=== PATIENT | male | born 1945 | race Caucasian/White ===

== ENCOUNTER 2020-01-11 20:49 | Emergency (ER) | payer MEDICARE, SELFPAY ==
[2020-01-11] VITALS (7 sets, daily range): BP systolic 131–143; BP diastolic 55–84; PULSE 84–103; RESP 16–18; TEMP 38; O2SAT 90–98; BMI 29.6
--- NOTE | 2020-01-11 21:42 | W.ED.SOB ---
HPI - SOB/Dyspnea General: Chief Complaint: Shortness of Breath/Dyspnea Stated Complaint: sob, cough Time Seen by Provider: 01/11/20 21:23 Source: patient Mode of arrival: ambulatory Limitations: no limitations History of Present Illness: HPI Narrative: Patient is a 74-year-old gentleman with a history of hypertension, diabetes, COPD, coronary artery disease who has been smoking for 65 years who presents to the emergency department with cough and shortness of breath that started when he woke up this afternoon from a nap. He also had a low-grade temperature. He has some shortness of breath. Because he was not getting any better he came to the hospital to be evaluated. MD elicited complaint: shortness of breath and cough Pertinent past history: COPD and diabetes Onset (ago): hour(s) (8) Timing: constant and progressively worsening Severity: moderate Exacerbating factors: nothing Relieving factors: nothing Known history of: COPD Associated symptoms: Reports chest pain, cough and fever(s); Deny abdominal pain, nausea, palpitations, polydipsia, polyuria or vomiting Treatment prior to arrival: none Review of Systems General: Reports: 10 or more systems reviewed and unremarkable except in HPI and below Const: Reports: fever Card: Reports: chest pain; Denies: palpitations, irregular heart rhythm, edema or swelling of feet/ankles Resp: Reports: shortness of breath and non-productive cough; Denies: productive cough GI: Denies: abdominal pain, nausea or vomiting : Denies: flank pain, painful urination, urinary frequency, urinary urgency or urinary hesitancy Musc: Denies: neck pain, back pain or extremity swelling Skin/Breast: Denies: rash, itching or redness Neuro: Denies: headache, numbness in extremities or weakness in extremities Endo: Denies: excessive urination, excessive thirst or tired all the time PFS ED PFSH: Medical History (Updated 01/11/20 @ 23:54 by Maximino Maradiaga MD, [facility]) ASHD (arteriosclerotic heart disease) COPD (chronic obstructive pulmonary disease) CVA (cerebral vascular accident) Diabetes HTN (hypertension) Tobacco abuse Social History Smoking and tobacco status: current every day smoker Physical Exam Const: COMMON NORMALS: no apparent distress, average body habitus, oriented x3, no limitations, healthy appearing, alert and well nourished HENMT: COMMON NORMALS: normocephalic, head/scalp atraumatic and moist oral mucous membranes HEAD & SCALP: normocephalic and atraumatic Eye: COMMON NORMALS: PERRL, EOMs intact bilaterally, conjunctivae normal and no scleral icterus CONJUNCTIVA: Yes conjunctivae normal PUPIL: Yes PERRL Neck/C-Spine: COMMON NORMALS: full ROM, supple, no meningeal signs, no JVD and no carotid bruits Chest: COMMONS NORMALS: inspection of chest normal and palpation of chest normal Resp: COMMON NORMALS: normal respiratory effort, no retractions, no use of accessory muscles and percussion normal AUSCULTATION: wheezes expiratory wheezes and throughout PERCUSSION: percussion normal Cardio: COMMON NORMALS: no JVD, regular rate, regular rhythm, S1 normal heart sound, S2 normal heart sound, no gallops, no clicks, no murmurs, no rub and peripheral pulses 2+ throughout RATE: regular rate RHYTHM: regular rhythm HEART SOUNDS: S1 normal and S2 normal PERIPHERAL PULSES: pulses 2+ throughout GI: COMMON NORMALS: normal to inspection, nondistended, normoactive bowel sounds, soft to palpation, non-tender, no hepatosplenomegaly, no masses and no bruits PALPATION: Yes soft and Yes no hepatosplenomegaly : COMMON NORMALS: Yes no CVA tenderness BLADDER/KIDNEY EXAM: Yes no CVA tenderness Back/Pelvis: COMMON NORMALS: no CVA tenderness Extremity: COMMON NORMALS: normal to inspection, full ROM, normal capillary refill, no calf tenderness and no pedal edema Neuro: COMMON NORMALS: oriented x3 SENSORIUM/ORIENTATION: Yes alert MENINGEAL SIGNS: Yes no meningeal signs Skin: COMMON NORMALS: no rashes or lesions noted, no wounds, skin turgor normal, no jaundice, no petechiae and no mottling GENERAL SKIN EXAM: no rashes or lesions noted and turgor normal Course Reevaluation(s): Reevaluation #1: Discussed his lab and imaging findings with him. He is positive for influenza B. Chest x-ray negative for acute findings. He obtained marked relief following his beta agonist treatment. We will discharge him home with a prescription for Tamiflu and he will be contacted with the results of his COVID-19 test. He voiced understanding and is in agreement with the plan. Time: 23:51 Vital Signs: Vital signs: Vital Signs Temperature 100.4 F H 01/11/20 20:57 Pulse Rate 92 01/11/20 23:37 Respiratory Rate 16 01/11/20 23:19 Blood Pressure 131/66 01/11/20 23:37 Pulse Oximetry 94 01/11/20 23:37 MDM - SOB/Dyspnea MDM Narrative: Medical decision making narrative: 74-year-old gentleman who presented with shortness of breath, cough, fever that started this afternoon. Evaluation in the ED was positive for influenza B infection. He was also tested for COVID-19 test. He is discharged home with a prescription for Tamiflu and albuterol. Differential Diagnosis: Shortness of Breath Differential Diagnosis: Likely acute exacerbation of chronic obstructive airways disease and community acquired pneumonia Lab Data: Labs: Lab Results 01/11/20 01/11/20 01/11/20 Range/Units 21:49 22:45 22:45 WBC 10.3 H (4.0-10.0) 10^3/ uL RBC 5.26 (4.1-5.3) 10^6/u L Hgb 16.5 (11.7-16.6) g/dL Hct 50.0 (42.0-52.0) % MCV 95.1 H (80-94) fL MCH 31.4 (28.0-34.0) pg MCHC 33.0 (30.0-36.0) g/dL RDW 13.2 (12.1-15.1) % Plt Count 187 (130-400) 10^3/c mm MPV 9.5 (7.4-10.4) fL Neut % (Auto) 78.6 % Lymph % (Auto) 13.1 % [place] % (Auto) 6.8 % Eos % (Auto) 0.6 % Baso % (Auto) 0.6 % Neut # (Auto) 8.1 H (1.8-7.7) 10^3/u L Lymph # (Auto) 1.4 (0.8-4.8) 10^3/u L [place] # (Auto) 0.7 (0.2-0.9) 10^3/u L Eos # (Auto) 0.1 (0.0-0.8) 10^3/u L Baso # (Auto) 0.1 (0.0-0.1) 10^3/u L Nucleated RBC % (a uto) 0 % Nucleated RBCs # 0.0 /100WBC Sodium 142 (136-145) mmol/L Potassium 4.2 (3.5-5.1) mmol/L Chloride 103 (98-107) mmol/L Carbon Dioxide 26 (22-29) mmol/L Anion Gap 17.2 (5-19) BUN 13 (8-23) mg/dL Creatinine 1.0 (0.7-1.2) mg/dL Glucose 109 (65-115) mg/dL Calculated Osmolal ity 291 (285-295) mOsm/k g Lactic Acid (0.5-2.2) mmol/L Calcium 9.3 (8.5-10.5) mg/dL Total Bilirubin 0.6 (0.15-1.2) mg/dL AST 28 (0-40) U/L ALT 23 (0-41) U/L Alkaline Phosphata se 79 (40-130) IU/L Troponin T Baselin e (0-15) ng/mL Total Protein 6.7 (6.6-8.7) g/dL Albumin 4.2 (3.5-5.2) g/dL Globulin 2.5 (1.3-4.6) g/dL Influenza Type A A g Negative (Negative) Influenza Type B A g Positive H (Negative) 01/11/20 01/11/20 Range/Units 22:45 22:45 WBC (4.0-10.0) 10^3/ uL RBC (4.1-5.3) 10^6/u L Hgb (11.7-16.6) g/dL Hct (42.0-52.0) % MCV (80-94) fL MCH (28.0-34.0) pg MCHC (30.0-36.0) g/dL RDW (12.1-15.1) % Plt Count (130-400) 10^3/c mm MPV (7.4-10.4) fL Neut % (Auto) % Lymph % (Auto) % [place] % (Auto) % Eos % (Auto) % Baso % (Auto) % Neut # (Auto) (1.8-7.7) 10^3/u L Lymph # (Auto) (0.8-4.8) 10^3/u L [place] # (Auto) (0.2-0.9) 10^3/u L Eos # (Auto) (0.0-0.8) 10^3/u L Baso # (Auto) (0.0-0.1) 10^3/u L Nucleated RBC % (a uto) % Nucleated RBCs # /100WBC Sodium (136-145) mmol/L Potassium (3.5-5.1) mmol/L Chloride (98-107) mmol/L Carbon Dioxide (22-29) mmol/L Anion Gap (5-19) BUN (8-23) mg/dL Creatinine (0.7-1.2) mg/dL Glucose (65-115) mg/dL Calculated Osmolal ity (285-295) mOsm/k g Lactic Acid 1.2 (0.5-2.2) mmol/L Calcium (8.5-10.5) mg/dL Total Bilirubin (0.15-1.2) mg/dL AST (0-40) U/L ALT (0-41) U/L Alkaline Phosphata se (40-130) IU/L Troponin T Baselin e 15 (0-15) ng/mL Total Protein (6.6-8.7) g/dL Albumin (3.5-5.2) g/dL Globulin (1.3-4.6) g/dL Influenza Type A A g (Negative) Influenza Type B A g (Negative) Imaging Data^: CXR: Attestation: I personally reviewed and interpreted this imaging study as follows: My impression: Negative for acute findings. EKG Data^: EKG 1: Attestation: I personally reviewed and interpreted this EKG as follows: EKG Interpretation Date: 01/11/20 EKG interpretation time: 22:19 Prior EKG tracings: not available for review Interpretation: Normal sinus rhythm. Heart rate 85 bpm. Intraventricular conduction delay. Normal axis. No ST changes. Discharge Plan Discharge Patient Disposition: Home, Self-Care Clinical Impression: Influenza B Acute bronchitis Qualifiers: Bronchitis organism: other organism Qualified Code(s): J20.8 - Acute bronchitis due to other specified organisms Condition: Stable Prescriptions: New Tamiflu 75 mg capsule 75 mg PO DAILY Qty: 5 RF: 0 Continued gabapentin 300 mg capsule 300 mg PO DAILY RF: 0 ezetimibe 10 mg tablet 10 mg PO DAILY RF: 0 hydrocodone-acetaminophen 10-325 mg tablet 1 tab PO Q6H PRNRF: 0 clopidogrel 75 mg tablet 75 mg PO DAILY RF: 0 alprazolam 0.25 mg tablet 0.25 mg PO TID PRN (Reason: Anxiety) RF: 0 citalopram 10 mg tablet 10 mg PO DAILY RF: 0 albuterol sulfate [ProAir HFA] 90 mcg/actuation HFA aerosol inhaler 2 puff INHALATION Q6H PRN (Reason: Bronchodilation) RF: 0 aspirin 325 mg tablet 325 mg PO DAILY RF: 0 nitroglycerin [Nitrostat] 0.4 mg tablet, sublingual 0.4 mg SUBLINGUAL Q5M PRN (Reason: Chest Pain) RF: 0 tamsulosin 0.4 mg capsule 0.4 mg PO DAILY RF: 0 acetaminophen-codeine 300-60 mg tablet 1 tab PO BID RF: 0 Discharge Orders: Discharge Order (Routine); Ordered 01/11/20 Ordered By: Maximino Maradiaga Referrals: [facility] [Other] Patient Instructions: Influenza (ED), Acute Bronchitis (ED) Activity Restrictions/Additional Instructions: Return for any new or worsening symptoms. Use your albuterol inhaler every 4 hours while awake for the next 2 days, then as needed thereafter. Take the Tamiflu as prescribed. Follow-up with your primary care provider within 5 days. Coding Level of Care Code ED Guyline Operator for Ledy Fwd Exam Comprehensive
--- NOTE | 2020-01-11 21:43 | ECG_ITS ---
Measurements Intervals [place] Rate: 85 P: 87 [place]: 170 QRS: 59 QRSD: 116 T: 63 QT: 370 QTc: 442 SINUS RHYTHM MODERATE INTRAVENTRICULAR CONDUCTION DELAY [110+ ms QRS DURATION] Compared to ECG 02/16/2019 20:21:27 Sinus bradycardia no longer present Electronically Signed On 01-13-2020 15:45:25 CDT by Bria Figueroa M.D. [id number]
--- NOTE | 2020-01-11 21:57 | PC.NURSE ---
PATIENT STATES HE HAS BEEN SHORT OF BREATH SINCE LAST NIGHT. PATIENT STATES HE JUST WAS NOT FEELING GOOD TODAY SO HE DECIDED TO COME IN TO THE ED
[2020-01-11 22:47] LABS: Influenza A by IFA Negative (Negative)
[2020-01-11 22:57] LABS: Influenza B by IFA Positive (Negative)
[2020-01-11 23:02] LABS: Basophils # 0.1 10^3/uL (0.0-0.1); Basophils % 0.6 %; Eosinophils # 0.1 10^3/uL (0.0-0.8); Eosinophils % 0.6 %; Hemoglobin 16.5 g/dL (11.7-16.6); Lymphocytes # 1.4 10^3/uL (0.8-4.8); Lymphocytes % 13.1 %; Mean Corpuscular Hemoglobin 31.4 pg (28.0-34.0); Mean Corpuscular Volume 95.1 fL (80-94); Mean Platelet Volume 9.5 fL (7.4-10.4); Monocytes # 0.7 10^3/uL (0.2-0.9); Monocytes % 6.8 %; Neutrophils # 8.1 10^3/uL (1.8-7.7); Neutrophils % 78.6 %; Nucleated Red Blood Cells % 0 %; Platelet Count 187 10^3/cmm (130-400); Red Blood Count 5.26 10^6/uL (4.1-5.3); Red Cell Distribution Width 13.2 % (12.1-15.1); White Blood Count 10.3 10^3/uL (4.0-10.0)
--- NOTE | 2020-01-11 23:11 | XR_ITS ---
WS: [id number] PORTABLE CHEST HISTORY: shortness of breath COMPARISON: 08/22/2019 Hyperinflated lungs with diffuse interstitial thickening. No pneumonia or consolidation. No pleural e ffusion or pneumothorax. Cardiac size: Mildly enlarged cardiac silhouette. Mediastinum/Aorta: Mild ectasia and dilatation of aorta with calcification. Similar to prior studies. Degenerative changes are advanced at the glenohumeral joints and the AC joints. XR/XR chest 1V portable [id number] IMPRESSION: 1. Chronic emphysema with no pneumonia. 2. Moderate atherosclerosis and ectasia thoracic aorta. No interval change.
[2020-01-11 23:16] LABS: Lactic Sepsis W/Reflex 1.2 mmol/L (0.5-2.2)
[2020-01-11 23:17] LABS: Alanine Aminotransferase 23 U/L (0-41); Albumin Level 4.2 g/dL (3.5-5.2); Alkaline Phosphatase 79 IU/L (40-130); Anion Gap 17.2 (5-19); Aspartate Amino Transferase 28 U/L (0-40); Blood Urea Nitrogen 13 mg/dL (8-23); Calcium 9.3 mg/dL (8.5-10.5); Carbon Dioxide 26 mmol/L (22-29); Chloride 103 mmol/L (98-107); Globulin 2.5 g/dL (1.3-4.6); Glucose 109 mg/dL (65-115); Osmolality Calculated 291 mOsm/kg (285-295); Potassium 4.2 mmol/L (3.5-5.1); Sodium 142 mmol/L (136-145); Total Bilirubin 0.6 mg/dL (0.15-1.2); Total Protein 6.7 g/dL (6.6-8.7)
[2020-01-11 23:19] LABS: Troponin(5th) Baseline 15 ng/mL (0-15)
--- NOTE | 2020-01-11 23:34 | PC.NURSE ---
XRAY in room
[2020-01-12] MEDS: oseltamivir phosphate 75 mg Capsule PO (00:09)
[2020-01-12 00:10] VITALS: BP 132/79; PULSE 82; RESP 17; O2SAT 94
[2020-01-13 16:21] LABS: Quest SARS-CoV-2 RNA NOT DETECTED (NOT DETECTED)
== END 2020-01-12 00:09 | disposition home or self-care (01) ==
PROVIDERS: Emergency Provider Family Medicine
DX: J10.1 Influenza due to other identified influenza virus with other respiratory manifestations (principal); Z79.02 Long term (current) use of antithrombotics/antiplatelets; Z79.82 Long term (current) use of aspirin; J44.9 Chronic obstructive pulmonary disease, unspecified; Z86.73 Personal history of transient ischemic attack (TIA), and cerebral infarction without residual deficits; E11.9 Type 2 diabetes mellitus without complications; I10 Essential (primary) hypertension; F17.210 Nicotine dependence, cigarettes, uncomplicated
CPT/HCPCS: 12345; 71045; 80053; 83605; 84484; 85025; 87635; 87804; 93005; 94640; 99283

== ENCOUNTER 2020-08-14 12:06 | Emergency (ER) | payer MEDICARE, SELFPAY ==
[2020-08-14 12:07] VITALS: BP 137/79; PULSE 65; RESP 18; TEMP 37; O2SAT 93; BMI 29.0
--- NOTE | 2020-08-14 12:08 | CT_ITS ---
WS: [id number] CT HEAD TECHNIQUE: Noncontrast CT of the head obtained from the skullbase to the vertex. CLINICAL INFORMATION: AMS COMPARISON: MRI [address] 4 9013 DLP: 859.[address] scans at [facility] use at least one of these dose optimization techniques: automat ed exposure control; mA and/or kV adjustment per patient size (includes targeted exams where dose is matched to clinical indication); or iterative reconstruction. FINDINGS: No evidence of intracranial hemorrhage or mass effect. Ventricular system and basal cisterns are garcia nt. Moderate small vessel changes with moderate parenchymal volume loss. Multiple chronic lacunar inf arcts. No extra-axial fluid collections. No evidence of mass or mass effect. Normal ledezma-white differ entiation. Mastoid air cells well aerated. Fluid in the right maxillary sinus. CT/CT head wo con* [id number] IMPRESSION: 1. No evidence of intracranial hemorrhage or mass effect. 2. Moderate small vessel changes. Moderate parenchymal volume loss. 3. Chronic lacunar infarcts in the basal ganglia bilaterally. This is similar in appearance. 4. No acute intracranial findings.
[2020-08-14 12:26] VITALS: BP 137/79; PULSE 68; RESP 20; O2SAT 94
[2020-08-14 12:30] LABS: Basophils # 0.1 10^3/uL (0.0-0.1); Basophils % 0.9 %; Eosinophils # 0.2 10^3/uL (0.0-0.8); Eosinophils % 2.1 %; Hematocrit 51.1 % (42.0-52.0); Lymphocytes # 3.2 10^3/uL (0.8-4.8); Lymphocytes % 32.4 %; Mean Corpuscular HGB Conc 33.3 g/dL (30.0-36.0); Mean Corpuscular Hemoglobin 31.9 pg (28.0-34.0); Mean Corpuscular Volume 95.9 fL (80-94); Mean Platelet Volume 10.8 fL (7.4-10.4); Monocytes # 0.7 10^3/uL (0.2-0.9); Monocytes % 7.1 %; Neutrophils # 5.59 10^3/uL (1.8-7.7); Neutrophils % 57.1 %; Nucleated Red Blood Cells % 0 %; Platelet Count 231 10^3/cmm (130-400); Red Blood Count 5.33 10^6/uL (4.1-5.3); Red Cell Distribution Width 13.4 % (12.1-15.1); White Blood Count 9.8 10^3/uL (4.0-10.0)
[2020-08-14 13:49] LABS: Alanine Aminotransferase 14 U/L (0-41); Albumin Level 3.9 g/dL (3.5-5.2); Alkaline Phosphatase 69 IU/L (40-130); Anion Gap 16.1 (5-19); Aspartate Amino Transferase 14 U/L (0-40); Blood Urea Nitrogen 12 mg/dL (8-23); Calcium 9.2 mg/dL (8.5-10.5); Carbon Dioxide 27 mmol/L (22-29); Chloride 102 mmol/L (98-107); Globulin 2.2 g/dL (1.3-4.6); Glucose 102 mg/dL (65-115); Magnesium 2.1 mg/dL (1.7-2.3); Osmolality Calculated 292 mOsm/kg (285-295); Potassium 4.1 mmol/L (3.5-5.1); Sodium 141 mmol/L (136-145); Total Bilirubin 0.8 mg/dL (0.15-1.2); Total Protein 6.1 g/dL (6.6-8.7)
--- NOTE | 2020-08-14 13:49 | ED_ITS ---
HPI - Weakness General: Chief complaint: Weakness Stated complaint: CONFUSION, MEMORY LOSS, DIZZY Time Seen by Provider: 08/14/20 12:08 History of Present Illness: HPI Narrative: 75-year-old male brought in to the emergency room complaining of altered mental status. Noted at the bedside that his sats are hovering in 9091% range. He evidently nearly nearly fell at his doctor's office and stumbled he was referred here for evaluation additionally he has memory loss. He usually lives at home along with his . He denies any chest pain or abdominal pain. He denies running out of any of his oral medications but he did run out of his inhaled medications recently but he only takes those as needed. MD Complaint: generalized weakness Onset (ago): hour(s) Duration: constant Location: generalized Quality: tingling Relieving factors: none Exacerbating factors: none Associated symptoms: Denies chest pain, chills, confusion, melena, decreased appetite, diaphoresis, dysuria, easy bruising, fever(s), headache(s), myalgias, nausea, rash, short of breath, syncope or vomiting Review of Systems Const: Denies: fever(s), chills or diaphoresis ENMT: Denies: throat pain, ear or mastoid pain, nasal discharge or nasal congestion Card: Denies: chest pain or syncope Resp: Denies: dyspnea, productive cough or non-productive cough GI: Denies: nausea, vomiting or melena : Denies: dysuria Skin/Breast: Denies: rash or pruritus Neuro: Denies: headache(s) or confusion [place]/Lymph: Denies: easy bruising [facility] ED PFSH: Medical History (Updated 08/14/20 @ 16:24 by Adolfo Villarreal DO) ASHD (arteriosclerotic heart disease) COPD (chronic obstructive pulmonary disease) CVA (cerebral vascular accident) Diabetes HTN (hypertension) Tobacco abuse Family History Father Cancer Mother Diabetes Social History Smoking and tobacco status: current every day smoker Physical Exam Const: COMMON NORMALS: no acute distress GENERAL APPEARANCE: cooperative and comfortable HENMT: COMMON NORMALS: normocephalic and atraumatic HEAD & SCALP: normocephalic and atraumatic Eye: COMMON NORMALS: Equal, round and reactive pupils present, EOMs intact bilaterally, conjunctivae normal and no scleral icterus CONJUNCTIVA: Yes conjunctivae normal PUPIL: Yes Equal, round and reactive pupils present Neck/C-Spine: COMMON NORMALS: no JVD Lymph: LYMPHATIC: no lymphadenopathy noted and no lymphedema noted Resp: COMMON NORMALS: normal respiratory effort, No retractions, No use of accessory muscles and clear to auscultation bilaterally AUSCULTATION: clear to auscultation bilaterally Cardio: COMMON NORMALS: no JVD, regular rate, regular rhythm and No murmurs present (Cardio) RATE: regular rate RHYTHM: regular rhythm GI: COMMON NORMALS: Soft to palpation and No hepatosplenomegaly present A USCULTATION: Yes normoactive bowel sounds PALPATION: Yes Soft to palpation, No Tenderness to palpation present (GI), No Guarding due to palpation present (GI) and Yes No hepatosplenomegaly present Extremity: COMMON NORMALS: normal to inspection, capillary refill normal, no clubbing, cyanosis or edema, no calf tenderness and no pedal edema Skin: COMMON NORMALS: no rashes or lesions noted GENERAL SKIN EXAM: no rashes or lesions noted Course Vital Signs: Vital signs: Vital Signs Temperature 98.6 F 08/14/20 12:07 Pulse Rate 63 08/14/20 16:03 Respiratory Rate 18 08/14/20 16:03 Blood Pressure 150/90 08/14/20 16:03 Pulse Oximetry 94 08/14/20 16:03 MDM - Weakness MDM Narrative: Medical decision making narrative: Patient is feeling somewhat better. EKG shows sinus bradycardia but otherwise unremarkable he has some nondiagnostic Q waves that appear to be old. We will discharge him home set him up for an outpatient Holter no change medications Lab Data: Labs: Lab Results 08/14/20 08/14/20 08/14/20 Range/Units 10:15 12:15 12:15 WBC 9.8 (4.0-10.0) 10^3/ uL RBC 5.33 H (4.1-5.3) 10^6/u L Hgb 17.0 H (11.7-16.6) g/dL Hct 51.1 (42.0-52.0) % MCV 95.9 H (80-94) fL MCH 31.9 (28.0-34.0) pg MCHC 33.3 (30.0-36.0) g/dL RDW 13.4 (12.1-15.1) % Plt Count 231 (130-400) 10^3/c mm MPV 10.8 H (7.4-10.4) fL Neut % (Auto) 57.1 % Lymph % (Auto) 32.4 % [place] % (Auto) 7.1 % Eos % (Auto) 2.1 % Baso % (Auto) 0.9 % Neut # (Auto) 5.59 (1.8-7.7) 10^3/u L Lymph # (Auto) 3.2 (0.8-4.8) 10^3/u L [place] # (Auto) 0.7 (0.2-0.9) 10^3/u L Eos # (Auto) 0.2 (0.0-0.8) 10^3/u L Baso # (Auto) 0.1 (0.0-0.1) 10^3/u L Nucleated RBC % (a uto) 0 % Nucleated RBCs # 0.0 /100WBC Specimen Type Sample Site ABG pH (7.35-7.45) ABG pCO2 (35-45) mmHg ABG pO2 (80.0-100.0) mmH g ABG HCO3 (22-26) mmol/L ABG O2 Saturation ABG Base Excess (-2.0-2.0) mmol/ L Mario Test A-a O2 Gradient (5-10) mmHg Hematocrit (42-52) % Hgb O2 Saturation (95-100) % Carboxyhemoglobin (0.4-20.1) %THgb Methemoglobin (0.4-1.5) % Total Hemoglobin (14-18) g/dL Ionized Calcium (1.1-1.4) mmol/L O2 Delivery Device Powder Core Tester ID Sodium 141 Cancelled (136-145) mmol/L Potassium 4.1 Cancelled (3.5-5.1) mmol/L Chloride 102 Cancelled (98-107) mmol/L Carbon Dioxide 27 Cancelled (22-29) mmol/L Anion Gap 16.1 Cancelled (5-19) BUN 12 Cancelled (8-23) mg/dL Creatinine 0.9 Cancelled (0.7-1.2) mg/dL GFR Calculation Not Reportable Cancelled Glucose 102 Cancelled (65-115) mg/dL Calculated Osmolal ity 292 Cancelled (285-295) mOsm/k g Calcium 9.2 Cancelled (8.5-10.5) mg/dL Magnesium 2.1 Cancelled (1.7-2.3) mg/dL Total Bilirubin 0.8 Cancelled (0.15-1.2) mg/dL AST 14 Cancelled (0-40) U/L ALT 14 Cancelled (0-41) U/L Alkaline Phosphata se 69 Cancelled (40-130) IU/L Total Protein 6.1 L Cancelled (6.6-8.7) g/dL Albumin 3.9 Cancelled (3.5-5.2) g/dL Globulin 2.2 Cancelled (1.3-4.6) g/dL Urine Color (Yellow) Urine Appearance (CLEAR) Urine pH (5-7) Ur Specific Gravit y (1.005-1.030) Urine Protein (Negative) Urine Glucose (UA) (Normal) Urine Ketones (Negative) Urine Blood (Negative) Urine Nitrate (Negative) Urine Bilirubin (Negative) Urine Urobilinogen (Negative) mg/dL Ur Leukocyte Pam ase (Negative) Urine RBC (0-2) /hpf Urine WBC (0-5) /hpf Ur Squamous Epith Cells (0-5) /hpf Amorphous Sediment Urine Bacteria (NONE) /hpf Urine Mucus /hpf 08/14/20 08/14/20 08/14/20 Range/Units 12:44 13:18 13:40 WBC (4.0-10.0) 10^3/ uL RBC (4.1-5.3) 10^6/u L Hgb (11.7-16.6) g/dL Hct (42.0-52.0) % MCV (80-94) fL MCH (28.0-34.0) pg MCHC (30.0-36.0) g/dL RDW (12.1-15.1) % Plt Count (130-400) 10^3/c mm MPV (7.4-10.4) fL Neut % (Auto) % Lymph % (Auto) % [place] % (Auto) % Eos % (Auto) % Baso % (Auto) % Neut # (Auto) (1.8-7.7) 10^3/u L Lymph # (Auto) (0.8-4.8) 10^3/u L [place] # (Auto) (0.2-0.9) 10^3/u L Eos # (Auto) (0.0-0.8) 10^3/u L Baso # (Auto) (0.0-0.1) 10^3/u L Nucleated RBC % (a uto) % Nucleated RBCs # /100WBC Specimen Type Arterial Sample Site Brachial, right ABG pH 7.39 (7.35-7.45) ABG pCO2 48.7 H (35-45) mmHg ABG pO2 66.3 L (80.0-100.0) mmH g ABG HCO3 29.4 H (22-26) mmol/L ABG O2 Saturation 95.1 ABG Base Excess 3.3 H (-2.0-2.0) mmol/ L Mario Test Pos A-a O2 Gradient 3.2 L (5-10) mmHg Hematocrit 50.6 (42-52) % Hgb O2 Saturation 90.9 L (95-100) % Carboxyhemoglobin 3.7 (0.4-20.1) %THgb Methemoglobin 0.7 (0.4-1.5) % Total Hemoglobin 16.5 (14-18) g/dL Ionized Calcium 1.2 (1.1-1.4) mmol/L O2 Delivery Device Roomair Powder Core Tester ID Havar Sodium Cancelled 143.0 (136-145) mmol/L Potassium Cancelled 3.7 (3.5-5.1) mmol/L Chloride Cancelled (98-107) mmol/L Carbon Dioxide Cancelled (22-29) mmol/L Anion Gap Cancelled (5-19) BUN Cancelled (8-23) mg/dL Creatinine Cancelled (0.7-1.2) mg/dL GFR Calculation Cancelled Glucose Cancelled 101.0 (65-115) mg/dL Calculated Osmolal ity Cancelled (285-295) mOsm/k g Calcium Cancelled (8.5-10.5) mg/dL Magnesium Cancelled (1.7-2.3) mg/dL Total Bilirubin Cancelled (0.15-1.2) mg/dL AST Cancelled (0-40) U/L ALT Cancelled (0-41) U/L Alkaline Phosphata se Cancelled (40-130) IU/L Total Protein Cancelled (6.6-8.7) g/dL Albumin Cancelled (3.5-5.2) g/dL Globulin Cancelled (1.3-4.6) g/dL Urine Color [place] (Yellow) Urine Appearance Clear (CLEAR) Urine pH 5.0 (5-7) Ur Specific Gravit y 1.020 (1.005-1.030) Urine Protein Trace (Negative) Urine Glucose (UA) Norm (Normal) Urine Ketones 1+ H (Negative) Urine Blood Neg (Negative) Urine Nitrate Negative (Negative) Urine Bilirubin 1+ H (Negative) Urine Urobilinogen 4 H (Negative) mg/dL Ur Leukocyte Pam ase Negative (Negative) Urine RBC 0-4 H (0-2) /hpf Urine WBC None (0-5) /hpf Ur Squamous Epith Cells 0-4 H (0-5) /hpf Amorphous Sediment Not Reportable Urine Bacteria 1+ H (NONE) /hpf Urine Mucus 1+ /hpf Discharge Plan Discharge Patient Disposition: Home Clinical Impression: Weakness, Orthostasis Condition: Stable Prescriptions: No Action isosorbide mononitrate 60 mg tablet extended release 24 hr 60 mg PO QAM RF: 0 isosorbide mononitrate 30 mg tablet extended release 24 hr 30 mg PO QAM RF: 0 diltiazem HCl 90 mg capsule,extended release 12 hr 90 mg PO Q12H RF: 0 ezetimibe 10 mg tablet 10 mg PO DAILY RF: 0 clopidogrel 75 mg tablet 75 mg PO DAILY RF: 0 alprazolam 0.25 mg tablet 0.25 mg PO TID PRN (Reason: Anxiety) RF: 0 citalopram 10 mg tablet 10 mg PO DAILY RF: 0 albuterol sulfate [ProAir HFA] 90 mcg/actuation HFA aerosol inhaler 2 puff INHALATION Q6H PRN (Reason: Bronchodilation) RF: 0 aspirin 325 mg tablet 325 mg PO DAILY RF: 0 nitroglycerin [Nitrostat] 0.4 mg tablet, sublingual 0.4 mg SUBLINGUAL Q5M PRN (Reason: Chest Pain) RF: 0 gabapentin 300 mg capsule 300 mg PO BID RF: 0 tamsulosin 0.4 mg capsule 0.4 mg PO DAILY RF: 0 acetaminophen-codeine 300-60 mg tablet 1 tab PO BID RF: 0 Discharge Orders: Discharge ED (Routine); Ordered 08/14/20 Ordered By: Adolfo Villarreal Referrals: Bishop aHll MD [Primary Care Provider] - Activity Restrictions/Additional Instructions: Follow up with your primary care doctor within the next week. Coding Level of Care Code ED Scrap Metal Collector for Chg Fwd Exam Comprehensive
[2020-08-14 13:51] LABS: ABG PCO2 48.7 mmHg (35-45); ABG PH Result 7.39 (7.35-7.45); Alveolar-Arterial Oxygen Gradi 3.2 mmHg (5-10); Arterial Blood Gas Hematocrit 50.6 % (42-52); Base Excess ABG 3.3 mmol/L (-2.0-2.0); Blood Gas Allen Test Pos; Blood Gas Sample Type Arterial; Carboxyhemoglobin 3.7 %THgb (0.4-20.1); HCO3 ABG 29.4 mmol/L (22-26); HGB O2 Sat 90.9 % (95-100); Ionized Calcium Level - ABG 1.2 mmol/L (1.1-1.4); Methemoglobin 0.7 % (0.4-1.5); Oxygen Saturation ABG 95.1; PO2 ABG 66.3 mmHg (80.0-100.0); Potassium Level - ABG 3.7 mmol/L (3.5-5.0); Total Hemoglobin 16.5 g/dL (14-18)
[2020-08-14 14:11] LABS: Oxygen Device ROOMAIR
[2020-08-14 14:17] LABS: Add Urine Microscopic? YES; Bilirubin Urine 1+ (Negative); Blood Urine Neg (Negative); Glucose Urine UA Norm (Normal); Ketones Urine 1+ (Negative); Leukocyte Esterase Urine Negative (Negative); Nitrate Urine Negative (Negative); Protein Urine Trace (Negative); RBC Urine 0-4 /hpf (0-2); Squamous Epithelial Cell Urine 0-4 /hpf (0-5); Urine Appearance Clear (CLEAR); Urine Color Orange (Yellow); Urobilinogen Urine 4 mg/dL (Negative)
[2020-08-14 14:18] LABS: Add Urine Culture? No; Bacteria Urine 1+ /hpf; Mucus Urine 1+ /hpf
[2020-08-14 14:29] VITALS: BP 140/93; PULSE 58; RESP 18; O2SAT 88
--- NOTE | 2020-08-14 14:32 | PC.NURSE ---
Placed NC with 2 lpms . Sats came up to 97%
--- NOTE | 2020-08-14 14:56 | ECG_ITS ---
[facility] Test Date: 2020-08-14 Pat Name: Jose Perkins Department: Room: Gender: Male Tube Inspector: : 1945 Requested By: Adolfo Antony Order Number: [id number] Asael MD: Uma Patel M.D. Measurements Intervals [place] Rate: 58 P: 30 [place]: 189 QRS: 15 QRSD: 108 T: 51 QT: 452 QTc: 447 Interpretive Statements SINUS BRADYCARDIA Compared to ECG 01/11/2020 22:19:21 Sinus rhythm no longer present Intraventricular conduction delay no longer present Electronically Signed On 08-14-2020 22:23:48 [employer] by Uma Patel M.D. [id number]
[2020-08-14 16:03] VITALS: BP 150/90; PULSE 63; RESP 18; O2SAT 94
[2020-08-14 16:27] VITALS: BP 150/90; PULSE 61; RESP 18; TEMP 37.2; O2SAT 94
--- NOTE | 2020-08-15 15:11 | DCPLANNER ---
client care manager was asked to schedule a halter monitor for patient. client care manager [facility]ed order for monitor to [facility]. client care manager will call for appointment information. Clinic will call patient with appointment information.
--- NOTE | 2020-08-16 11:10 | DCPLANNER ---
Patient has a follow up appointment scheduled for , August 30, 2020 at 3:30 for a 24 hour halter monitor. Clinic will call patient with appointment information.
--- NOTE | 2020-09-14 13:05 | DCPLANNER ---
Patient did attend follow up appointment with heart care for a monitor.
== END 2020-08-14 16:46 | disposition home or self-care (01) ==
PROVIDERS: Emergency Provider Family Medicine; PCP Family Medicine
DX: R53.1 Weakness (principal); I95.1 Orthostatic hypotension; Z79.82 Long term (current) use of aspirin; Z79.02 Long term (current) use of antithrombotics/antiplatelets; J44.9 Chronic obstructive pulmonary disease, unspecified; Z86.73 Personal history of transient ischemic attack (TIA), and cerebral infarction without residual deficits; E11.9 Type 2 diabetes mellitus without complications; I10 Essential (primary) hypertension; F17.210 Nicotine dependence, cigarettes, uncomplicated
CPT/HCPCS: 12345; 36600; 70450; 80051; 80053; 81001; 82330; 82805; 83605; 83735; 85025; 93005; 99283

== ENCOUNTER 2020-08-22 10:32 | Emergency (ER) | payer MEDICARE, SELFPAY ==
[2020-08-22 10:36] VITALS: BP 150/113; PULSE 72; RESP 16; TEMP 36.5; O2SAT 94; BMI 29.5
--- NOTE | 2020-08-22 10:39 | CT_ITS ---
WS: [id number] CT ABDOMEN AND PELVIS WITH CONTRAST HISTORY: Abdominal pain. Prior appendectomy. TECHNIQUE: Imaging performed of the abdomen and pelvis with IV contrast. Single phase imaging of the abdomen. Coronal and sagittal reformats are submitted. All CT scans at [facility] use at least one of these dose optimization techniques: automated exposure control; mA and/or kV adjustment per patient size (includes targeted exams where dose is matched to clinical indication); or iterativ e reconstruction. IV CONTRAST: Omnipaque 300; 95 mL IV. Oral contrast: No DLP: 1097.64 mGy.cm COMPARISON: 01/06/2019, 07/04/2012 Lower thorax: Lobulated 12 mm nodule with long-term stability medial RIGHT lower lobe. Heart is anat l size. Small hiatal hernia. Liver/biliary system: Normal size with no intrahepatic dilatation. Gallbladder: Cholelithiasis. No evidence for acute cholecystitis. No wall thickening. Pancreas: Normal. Spleen: Normal. Adrenal glands: Normal. Right kidney: Normal size kidney. Several small cysts with the largest in the lower pole measuring 3. 6 x 3.2 cm. No obstruction. Left kidney: Small cortical hypodensities. Some of these are too small to characterize. The largest i n the upper pole cortex measures 1.0 cm and a cyst. Aorta: Abdominal aortic aneurysm extends over a length of 7.8 cm and begins 1.5 cm below the renal ar teries. Maximum diameter of the aneurysm 4.4 cm. There is a large amount of near circumferential thro mbus. Small caliber enhancing lumen with a diameter of 1.3 cm. No retroperitoneal hematoma. Lymphadenopathy: None. Free fluid: None. GI tract: Prior appendectomy. Numerous diverticula in the descending and sigmoid colon. No evidence f or an acute diverticulitis. No obstruction. Abdominal wall: Large fat-containing umbilical hernia with a diameter of 3.3 cm. Pelvis: Minimally distended urinary bladder. Prostate gland is enlarged and heterogeneous extending o grisel length of 5.3 cm. Transverse diameter of 5.3 cm. Bones: Mild spondylitic changes in the lumbar spine. CT/CT abdomen pelvis w con* [id number] IMPRESSION: 1. Cholelithiasis without evidence for acute cholecystitis. 2. Long-term stability 12 mm medial RIGHT lower lobe pulmonary nodule. 3. Bilateral renal cysts. 4. Abdominal aortic aneurysm with a maximum diameter 4.4 cm. 5. Diverticulosis without acute diverticulitis.
--- NOTE | 2020-08-22 10:39 | XR_ITS ---
WS: [id number] PORTABLE CHEST HISTORY: cp COMPARISON: 01/11/2020 Mild emphysema. No pneumonia. Normal vasculature. No pleural effusion or pneumothorax. Cardiac size: Mildly enlarged cardiac silhouette. Mediastinum/Aorta: Mild atherosclerosis aorta. Advanced degenerative changes at the glenohumeral joints, LEFT greater than RIGHT. XR/XR chest 1V portable [id number] IMPRESSION: Chronic emphysema and cardiomegaly. No acute cardiopulmonary disease.
[2020-08-22 10:40] VITALS: BP 151/74; PULSE 78; RESP 18; O2SAT 95
--- NOTE | 2020-08-22 10:40 | ECG_ITS ---
[facility] Test Date: 2020-08-22 Pat Name: Jose Perkins Department: Room: Gender: Male E/M Engineer: : 1945 Requested By: Quincy Smith Order Number: [id number] Asael MD: Uma Patel M.D. Measurements Intervals [place] Rate: 72 P: 65 MA: 167 QRS: 56 QRSD: 117 T: 54 QT: 402 QTc: 440 Interpretive Statements SINUS RHYTHM Compared to ECG 08/14/2020 15:31:11 Sinus bradycardia no longer present Electronically Signed On 08-22-2020 19:40:54 PATENT ATTORNEY by Uma Patel M.D. [email or web address] at stone countyBeijing TierTime Technologycleveland clinic mercy hospital.[employer]/store/OM/[id number]/ecg/[id number]
--- NOTE | 2020-08-22 10:41 | ED_ITS ---
HPI - Abdominal Pain General: Chief Complaint: General Medical Stated Complaint: weakness, generalized pain, wants pain meds Time Seen by Provider: 08/22/20 10:34 Source: patient and EMS Mode of arrival: EMS Limitations: no limitations History of Present Illness: HPI narrative: 75-year-old male has a history of chronic pain. He states he has pain all over today and is out of his pain meds. He states that he has had joint extremity back and abdominal pain. States abdominal pain is worse and rates an 8 out of 10. States that sharp in nature. Denies any vomiting or diarrhea. Denies any worsening or improving factors. Associated Symptoms: Denies chills, dysuria and fever(s) Review of Systems Const: Denies: fever(s), chills, body aches or change in appetite Eyes: Denies: blurry vision or eye discomfort ENMT: Denies: throat pain or dental pain Card: Denies: chest pain Resp: Denies: dyspnea GI: Reports: abdominal pain : Denies: dysuria Musc: Reports: back pain and joint pain Skin/Breast: Denies: rash Neuro: Denies: headache(s) Psych: Denies: depression Bruno/Lymph: Denies: easy bruising All/Imm: Denies: urticaria PFSH ED PFSH: Medical History (Updated 08/22/20 @ 12:07 by Quincy Smith MD) ASHD (arteriosclerotic heart disease) COPD (chronic obstructive pulmonary disease) CVA (cerebral vascular accident) Diabetes HTN (hypertension) Tobacco abuse Family History Father Cancer Mother Diabetes Social History (Updated 08/22/20 @ 10:43 by Jaswinder Youngblood RN) Smoking and tobacco status: current every day smoker cigarettes Packs smoked per day: 0.25 Alcohol intake: former Substance/Drug Use: former Physical Exam Const: COMMON NORMALS: no acute distress, patient oriented x3 and healthy appearing HENMT: COMMON NORMALS: normocephalic and atraumatic HEAD & SCALP: normocephalic and atraumatic Eye: COMMON NORMALS: Equal, round and reactive pupils present and EOMs intact bilaterally PUPIL: Yes Equal, round and reactive pupils present Neck/C-Spine: COMMON NORMALS: full ROM and supple Chest: COMMONS NORMALS: normal inspection of the chest and normal palpation of entire chest wall Resp: COMMON NORMALS: normal respiratory effort, No retractions, No use of accessory muscles and clear to auscultation bilaterally AUSCULTATION: clear to auscultation bilaterally Cardio: COMMON NORMALS: regular rate, regular rhythm and No murmurs present (Cardio) RATE: regular rate RHYTHM: regular rhythm GI: COMMON NORMALS: Normal to inspection, nondistended, normoactive bowel sounds present, Soft to palpation and no masses PALPATION: Yes Soft to palpation OTHER: Diffuse mild tenderness Extremity: COMMON NORMALS: normal to inspection and full ROM Neuro: COMMON NORMALS: patient oriented x3, moves all extremities and no focal motor deficits Psych: COMMON NORMALS: mental status grossly normal, Normal thought process present and cooperative THOUGHT PROCESS: Normal thought process present Skin: COMMON NORMALS: no rashes or lesions noted and no wounds GENERAL SKIN EXAM: no rashes or lesions noted Course Vital Signs: Vital signs: Vital Signs Temperature 97.7 F 08/22/20 10:36 Pulse Rate 72 08/22/20 11:40 Respiratory Rate 18 08/22/20 11:40 Blood Pressure 204/104 08/22/20 11:40 Pulse Oximetry 95 08/22/20 11:40 MDM - Abdominal Pain MDM Narrative: Medical decision making narrative: Jose presents here with abdominal pain along with diffuse pain. He does have gallstones or could be causing some abdominal pain. He has no signs of acute abdomen or cholecystitis. We will place him on pain meds and he is to follow-up with Dr. Anaya. He is return if worsening. Lab Data: Labs: Lab Results 08/22/20 08/22/20 08/22/20 Range/Units 10:41 10:41 10:48 WBC 11.5 H (4.0-10.0) 10^3/ uL RBC 5.46 H (4.1-5.3) 10^6/u L Hgb 17.4 H (11.7-16.6) g/dL Hct 51.7 (42.0-52.0) % MCV 94.7 H (80-94) fL MCH 31.9 (28.0-34.0) pg MCHC 33.7 (30.0-36.0) g/dL RDW 13.1 (12.1-15.1) % Plt Count 254 (130-400) 10^3/c mm MPV 9.9 (7.4-10.4) fL Neut % (Auto) 57.2 % Lymph % (Auto) 31.5 % Eaton % (Auto) 7.3 % Eos % (Auto) 3.1 % Baso % (Auto) 0.6 % Neut # (Auto) 6.54 (1.8-7.7) 10^3/u L Lymph # (Auto) 3.6 (0.8-4.8) 10^3/u L [place]aton # (Auto) 0.8 (0.2-0.9) 10^3/u L Eos # (Auto) 0.4 (0.0-0.8) 10^3/u L Baso # (Auto) 0.1 (0.0-0.1) 10^3/u L Nucleated RBC % (a uto) 0 % Nucleated RBCs # 0.0 /100WBC Sodium 140 (136-145) mmol/L Potassium 3.5 (3.5-5.1) mmol/L Chloride 101 (98-107) mmol/L Carbon Dioxide 28 (22-29) mmol/L Anion Gap 14.5 (5-19) BUN 13 (8-23) mg/dL Creatinine 0.9 (0.7-1.2) mg/dL GFR Calculation Not Reportable Glucose 91 (65-115) mg/dL Calculated Osmolal ity 290 (285-295) mOsm/k g Calcium 9.2 (8.5-10.5) mg/dL Total Bilirubin 0.9 (0.15-1.2) mg/dL AST 16 (0-40) U/L ALT 13 (0-41) U/L Alkaline Phosphata se 73 (40-130) IU/L Total Protein 7.2 (6.6-8.7) g/dL Albumin 4.0 (3.5-5.2) g/dL Globulin 3.2 (1.3-4.6) g/dL Lipase 24 (13-60) U/L Urine Color Straw (Yellow) Urine Appearance Clear (CLEAR) Urine pH 6.5 (5-7) Ur Specific Gravit y 1.005 (1.005-1.030) Urine Protein Neg (Negative) Urine Glucose (UA) Norm (Normal) Urine Ketones Negative (Negative) Urine Blood Neg (Negative) Urine Nitrate Negative (Negative) Urine Bilirubin Neg (Negative) Urine Urobilinogen 4 H (Negative) mg/dL Ur Leukocyte Pam ase Negative (Negative) Imaging Data ^: CXR: Radiologist's impression: [place] [address] XRay Report Signed Patient: Jose Perkins Unit #: [id number] : 1945 Age/Sex: 75 / M ADM Date: 08/22/20 Loc: ER Room/Bed: Attending Dr: Ordering Provider/Ordering MD: Quincy Smith MD Date of Service: 08/22/20 Procedure(s): XR chest 1V portable [id number] Accession Number(s): [id number] Report Number: [id number] WS: [id number] PORTABLE CHEST HISTORY: cp COMPARISON: 01/11/2020 Mild emphysema. No pneumonia. Normal vasculature. No pleural effusion or pneumothorax. Cardiac size: Mildly enlarged cardiac silhouette. Mediastinum/Aorta: Mild atherosclerosis aorta. Advanced degenerative changes at the glenohumeral joints, LEFT greater than RIGHT. XR/XR chest 1V portable [id number] IMPRESSION: Chronic emphysema and cardiomegaly. No acute cardiopulmonary disease. CT Abd/Pel: Radiologist's impression: [place] [address] CT Scan Report Signed Patient: Jose Perkins Unit #: [id number] : 1945 Age/Sex: 75 / M ADM Date: 08/22/20 Loc: ER Room/Bed: Attending Dr: Ordering Provider/Ordering MD: Quincy Smith MD Date of Service: 08/22/20 Procedure(s): CT abdomen pelvis w con* [id number] Accession Number(s): [id number] Report Number: [id number] WS: [id number] CT ABDOMEN AND PELVIS WITH CONTRAST HISTORY: Abdominal pain. Prior appendectomy. TECHNIQUE: Imaging performed of the abdomen and pelvis with IV contrast. Single phase imaging of the abdomen. Coronal and sagittal reformats are submitted. All CT scans at [facility] use at least one of these dose optimization techniques: automated exposure c ontrol; mA and/or kV adjustment per patient size (includes targeted exams where dose is matched to clinical indication); or iterative reconstruction. IV CONTRAST: Omnipaque 300; 95 mL IV. Oral contrast: No DLP: 1097.64 mGy.cm COMPARISON: 01/06/2019, 07/04/2012 Lower thorax: Lobulated 12 mm nodule with long-term stability medial RIGHT lower lobe. Heart is normal size. Small hiatal hernia. Liver/biliary system: Normal size with no intrahepatic dilatation. Gallbladder: Cholelithiasis. No evidence for acute cholecystitis. No wall thickening. Pancreas: Normal. Spleen: Normal. Adrenal glands: Normal. Right kidney: Normal size kidney. Several small cysts with the largest in the lower pole measuring 3.6 x 3.2 cm. No obstruction. Left kidney: Small cortical hypodensities. Some of these are too small to characterize. The largest in the upper pole cortex measures 1.0 cm and a cyst. Aorta: Abdominal aortic aneurysm extends over a length of 7.8 cm and begins 1.5 cm below the renal arteries. Maximum diameter of the aneurysm 4.4 cm. There is a large amount of near circumferential thrombus. Small caliber enhancing lumen with a diameter of 1.3 cm. No retroperitoneal hematoma. Lymphadenopathy: None. Free fluid: None. GI tract: Prior appendectomy. Numerous diverticula in the descending and sigmoid colon. No evidence for an acute diverticulitis. No obstruction. Abdominal wall: Large fat-containing umbilical hernia with a diameter of 3.3 cm. Pelvis: Minimally distended urinary bladder. Prostate gland is enlarged and heterogeneous extending over length of 5.3 cm. Transverse diameter of 5.3 cm. Bones: Mild spondylitic changes in the lumbar spine. CT/CT abdomen pelvis w con* [id number] IMPRESSION: 1. Cholelithiasis without evidence for acute cholecystitis. 2. Long-term stability 12 mm medial RIGHT lower lobe pulmonary nodule. 3. Bilateral renal cysts. 4. Abdominal aortic aneurysm with a maximum diameter 4.4 cm. 5. Diverticulosis without acute diverticulitis. EKG Data ^: EKG 1: Attestation: I personally reviewed and interpreted this EKG as follows: EKG interpretation date: 08/22/20 EKG interpretation time: 11:17 Interpretation: nsr hr [address] or t wave abnormalities qrs 117 qtc 426 Discharge Plan Discharge Patient Disposition: Home Clinical Impression: [place] Qualifiers: Cholecystitis presence: without cholecystitis Biliary obstruction: without biliary obstruction Qualified Code(s): K80.20 - Calculus of gallbladder without cholecystitis without obstruction Condition: Stable Prescriptions: [place] 5-325 mg tablet 1 tab PO Q6H PRN (Reason: pain) Qty: 14 RF: 0 No Action isosorbide mononitrate 60 mg tablet extended release 24 hr 60 mg PO DAILY@08 RF: 0 isosorbide mononitrate 30 mg tablet extended release 24 hr 30 mg PO DAILY@08 RF: 0 diltiazem HCl 90 mg capsule,extended release 12 hr 90 mg PO Q12H RF: 0 ezetimibe 10 mg tablet 10 mg PO DAILY RF: 0 clopidogrel 75 mg tablet 75 mg PO DAILY@08 RF: 0 alprazolam 0.25 mg tablet 0.25 mg PO TID PRN (Reason: Anxiety) RF: 0 citalopram 10 mg tablet 10 mg PO DAILY@08 RF: 0 albuterol sulfate [ProAir HFA] 90 mcg/actuation HFA aerosol inhaler 2 puff INHALATION Q6H PRN (Reason: Bronchodilation) RF: 0 aspirin 325 mg tablet 325 mg PO DAILY@08 RF: 0 nitroglycerin [Nitrostat] 0.4 mg tablet, sublingual 0.4 mg SUBLINGUAL Q5M PRN (Reason: Chest Pain) RF: 0 gabapentin 300 mg capsule 300 mg PO BID@ RF: 0 tamsulosin 0.4 mg capsule 0.4 mg PO DAILY@08 RF: 0 acetaminophen-codeine 300-60 mg tablet 1 tab PO BID@,20 RF: 0 Chantix Continuing Month Box 1 mg Tablet 1 mg PO . DIRECTED RF: 0 Discharge Orders: Discharge ED (Routine); Ordered 08/22/20 Ordered By: Quincy Smith Referrals: Bishop Hall MD [Primary Care Provider] - Jamie Anaya MD [Physician] - 1-3 days Discharge Diet: Advance as tolerated Discharge Activity: Resume usual activity Patient Instructions: Biliary Colic (ED) Coding Level of Care Code ED Ambulance Driver Paramedic for Chg Fwd Exam Comprehensive
[2020-08-22 10:46] LABS: Basophils # 0.1 10^3/uL (0.0-0.1); Basophils % 0.6 %; Eosinophils # 0.4 10^3/uL (0.0-0.8); Eosinophils % 3.1 %; Hematocrit 51.7 % (42.0-52.0); Hemoglobin 17.4 g/dL (11.7-16.6); Lymphocytes # 3.6 10^3/uL (0.8-4.8); Lymphocytes % 31.5 %; Mean Corpuscular HGB Conc 33.7 g/dL (30.0-36.0); Mean Corpuscular Hemoglobin 31.9 pg (28.0-34.0); Mean Corpuscular Volume 94.7 fL (80-94); Mean Platelet Volume 9.9 fL (7.4-10.4); Monocytes # 0.8 10^3/uL (0.2-0.9); Monocytes % 7.3 %; Neutrophils # 6.54 10^3/uL (1.8-7.7); Neutrophils % 57.2 %; Nucleated Red Blood Cells % 0 %; Platelet Count 254 10^3/cmm (130-400); Red Blood Count 5.46 10^6/uL (4.1-5.3); Red Cell Distribution Width 13.1 % (12.1-15.1); White Blood Count 11.5 10^3/uL (4.0-10.0)
[2020-08-22 10:56] VITALS: RESP 18; O2SAT 96
[2020-08-22] MEDS: HYDROmorphone 1 mg/mL INJ 1 mL 0.5 MG IVP (10:56)
[2020-08-22] MEDS: iohexol 300 mg/mL 100 mL Btl IV (10:58)
[2020-08-22 11:13] LABS: Alanine Aminotransferase 13 U/L (0-41); Alkaline Phosphatase 73 IU/L (40-130); Anion Gap 14.5 (5-19); Aspartate Amino Transferase 16 U/L (0-40); Blood Urea Nitrogen 13 mg/dL (8-23); Calcium 9.2 mg/dL (8.5-10.5); Carbon Dioxide 28 mmol/L (22-29); Chloride 101 mmol/L (98-107); Creatinine Clr Calc Pharmacy 81.3213; Globulin 3.2 g/dL (1.3-4.6); Glucose 91 mg/dL (65-115); Lipase 24 U/L (13-60); Osmolality Calculated 290 mOsm/kg (285-295); Potassium 3.5 mmol/L (3.5-5.1); Sodium 140 mmol/L (136-145); Total Bilirubin 0.9 mg/dL (0.15-1.2); Total Protein 7.2 g/dL (6.6-8.7)
[2020-08-22] MEDS: sodium chloride 0.9% 1,000 ML 999 ML IV (11:14)
[2020-08-22] MEDS: ondansetron 2 mg/ML SDV 2 mL 4 MG IVP (11:15)
[2020-08-22 11:38] LABS: Add Urine Microscopic? NO
[2020-08-22 11:40] VITALS: BP 204/104; PULSE 72; RESP 18; O2SAT 95
[2020-08-22 11:40] LABS: Specific Gravity, Urine 1.005 (1.005-1.030); Urine Appearance Clear (CLEAR); Urine Color Straw (Yellow); pH Urine 6.5 (5-7)
[2020-08-22 11:41] LABS: Bilirubin Urine Neg (Negative); Blood Urine Neg (Negative); Glucose Urine UA Norm (Normal); Ketones Urine Negative (Negative); Leukocyte Esterase Urine Negative (Negative); Nitrate Urine Negative (Negative); Protein Urine Neg (Negative); Urobilinogen Urine 4 mg/dL (Negative)
[2020-08-22] MEDS: labetalol 5 mg/mL SDV 20mL 10 MG IVP (12:08)
[2020-08-22 12:48] VITALS: BP 203/97; PULSE 78; RESP 18; O2SAT 91
--- NOTE | 2020-08-23 12:03 | DCPLANNER ---
manager pmo had message to schedule a follow up appointment for patient with [facility] General Surgery. manager pmo emailed both Yennifer and Marilin at [facility] General Surgery for a referral to the clinic. manager pmo gave them the patients information, it will be printed and reviewed. Clinic will call patient with appointment information.
--- NOTE | 2020-08-28 10:33 | DCPLANNER ---
Patient has a follow up appointment scheduled for Monday, August 31, 2020 at 1:[address] Anaya. Clinic will call patient with appointment information.
--- NOTE | 2020-10-16 08:15 | DCPLANNER ---
Patient had a follow up appointment scheduled for with general surgery - appointment cancelled.
== END 2020-08-22 12:51 | disposition home or self-care (01) ==
PROVIDERS: Emergency Provider Emergency Medicine; PCP Family Medicine
DX: K80.20 Calculus of gallbladder without cholecystitis without obstruction (principal); Z79.82 Long term (current) use of aspirin; Z79.02 Long term (current) use of antithrombotics/antiplatelets; J44.9 Chronic obstructive pulmonary disease, unspecified; Z86.73 Personal history of transient ischemic attack (TIA), and cerebral infarction without residual deficits; E11.9 Type 2 diabetes mellitus without complications; I10 Essential (primary) hypertension; F17.210 Nicotine dependence, cigarettes, uncomplicated
CPT/HCPCS: 12345; 71045; 74177; 80053; 81003; 83690; 85025; 93005; 96361; 96374; 96375; 99282; 99283; J1170; J2405; J3490; J7030; Q9967

== ENCOUNTER 2020-08-25 06:58 | Emergency (ER) | payer MEDICARE, SELFPAY ==
[2020-08-25] VITALS (7 sets, daily range): BP systolic 138–228; BP diastolic 70–143; PULSE 60–79; RESP 12–18; TEMP 36.4; O2SAT 94–97; BMI 29.5
[2020-08-25 07:16] LABS: Glucose Point of Care 130 mg/dL (70-110)
--- NOTE | 2020-08-25 07:24 | CTR_ITS ---
PROCEDURE INFORMATION: Exam: CT Lumbar Spine Without Contrast Exam date and time: 08/25/2020 7:29 AM Age: 75 years old Clinical indication: Low back pain; Additional info: Back pain w L leg radicular pain TECHNIQUE: Imaging protocol: Computed tomography images of the lumbar spine without contrast. Radiation optimization: All CT scans at this facility use at least one of these dose optimization techniques: automated exposure control; mA and/or kV adjustment per patient size (includes targeted exams where dose is matched to clinical indication); or iterative reconstruction. COMPARISON: No relevant prior studies available. RADIATION DOSE METRICS: Total DLP (mGy-cm): 2345 FINDINGS: Vertebrae: Osteopenia and degenerative change. 5 mm bone island in the L2 vertebral body. Diminished lumbar lordosis. Discs/Spinal canal/Neural foramina: Diffuse disc bulging throughout the lumbar spine. Focal left lateral disc herniation at the L4-L5 level (series 3: Image 61), along with asymmetric left-sided foraminal stenosis (series 3: Image 63). Note that assessment of disc, spinal cord, and nerve root pathology is limited in the absence of intrathecal contrast. Kidneys and ureters: Incompletely visualized 3.1 cm right renal cyst. Vasculature: Incompletely visualized 4.5 cm abdominal aortic aneurysm. Prominent vascular calcification. Soft tissues: Hypertrophy and calcification of the ligamentum flavum. CT/CT lumbar spine wo con* [id number] IMPRESSION: 1. Diffuse disc bulging throughout the lumbar spine. 2. Focal left lateral disc herniation at the L4-L5 level (series 3: Image 61), along with asymmetric left-sided foraminal stenosis (series 3: Image 63). 3. Incompletely visualized 4.5 cm abdominal aortic aneurysm. COMMENTS: Consistent with the [employer]'s Incidental Findings Committee white paper (J Am Lisa Radiol 2018): Any incidental renal lesion less than 1 cm or classified as too small to characterize, or any incidental cystic renal lesion characterized as simple-appearing, is likely benign. No follow-up imaging is recommended for these lesions per consensus recommendations based on imaging criteria. Radiation Dose CTDIVOL = (mGy): DLP = 2345 (mGy-cm)
--- NOTE | 2020-08-25 07:24 | USR_ITS ---
PROCEDURE INFORMATION: Exam: US Duplex Left Lower Extremity Veins, Limited Exam date and time: 08/25/2020 7:45 AM Age: 75 years old Clinical indication: Pain; Leg, lower; Left; Additional info: L calf pain TECHNIQUE: Imaging protocol: Real-time Duplex ultrasound of the Left Lower Extremity with 2-D ledezma scale, color Doppler flow and spectral waveform analysis with image documentation. Limited exam focused on the left lower extremity veins. COMPARISON: No relevant prior studies available. FINDINGS: Left deep veins: No deep venous thrombosis in the visualized left common femoral, profunda femoris, superficial femoral, popliteal, posterior tibial, or peroneal veins. Left superficial veins: Saphenofemoral junction is patent without thrombus. Soft tissues: Unremarkable. US/CV venous duplex [facility] [id number] IMPRESSION: No deep venous thrombosis in the visualized left lower extremity.
--- NOTE | 2020-08-25 07:27 | ECG_ITS ---
[facility] Test Date: 2020-08-25 Pat Name: Jose Perkins Department: Room: Gender: Male Automatic Vulcanizing Lead Operator: ISHMAEL : 1945 Requested By: Adolfo Antony Order Number: [id number] Reading MD: MYKE LAU Measurements Intervals [place] Rate: 67 P: 39 WV: 160 QRS: 41 QRSD: 124 T: 55 QT: 417 QTc: 442 Interpretive Statements SINUS RHYTHM MODERATE INTRAVENTRICULAR CONDUCTION DELAY [110+ ms QRS DURATION] WARNING: DATA QUALITY MAY AFFECT INTERPRETATION Compared to ECG 08/22/2020 11:17:36 Intraventricular conduction delay now present Electronically Signed On 08-25-2020 18:54:54 DIGITAL ADVISOR by MYKE LAU [email or web address] BiolActistallahatchie general [email or web address]/store/[id number] [email or web address]
--- NOTE | 2020-08-25 07:39 | ED_ITS ---
HPI - Weakness General: Chief complaint: Weakness Stated complaint: LEFT SIDE PAIN S/P FALLING Time Seen by Provider: 08/25/20 07:05 History of Present Illness: HPI Narrative: 75-year-old male presents emergency room complaining of generalized weakness. He normally states he can get around fairly well but over the last couple of weeks he has had more more difficulty he has had to use a walker at home is complaining of left leg pain radiating up into his back. He describes boluses if it starts distally him radiates proximally. He denies ever having back problems in the past. He was seen twice this month already once with abdominal pain in the other time after a near orthostatic episode at the doctor's office on the first evaluation was thought to be cholelithiasis he was discharged home second evaluation he was orthostatic was given fluids improved and was discharged home. He denies any chest or abdominal pain. He is noted to be extremely hypertensive on arrival here. MD Complaint: generalized weakness and lack of energy Onset (ago): week(s) Duration: intermittent Location: generalized and LLE Associated symptoms: Denies chest pain, chills, melena, dysuria, fever(s), nausea or vomiting Review of Systems Const: Denies: fever(s), chills, body aches, change in appetite, fatigue or malaise ENMT: Denies: throat pain, ear or mastoid pain, nasal discharge or nasal congestion Card: Denies: chest pain, edema, dyspnea on exertion or orthopnea Resp: Denies: dyspnea, productive cough or non-productive cough GI: Denies: abdominal pain, nausea, vomiting, hematemesis, coffee ground emesis, diarrhea, constipation, bloating, hematochezia or melena : Denies: flank pain, dysuria, urinary frequency or urinary urgency Skin/Breast: Denies: rash PFSH ED PFSH: Medical History ASHD (arteriosclerotic heart disease) COPD (chronic obstructive pulmonary disease) CVA (cerebral vascular accident) Diabetes HTN (hypertension) Tobacco abuse Family History Father Cancer Mother Diabetes Social History Smoking and tobacco status: current every day smoker cigarettes Packs smoked per day: 0.25 Alcohol intake: former Physical Exam Const: COMMON NORMALS: no acute distress GENERAL APPEARANCE: cooperative and comfortable ORIENTATION/CONSCIOUSNESS: Yes awake, Yes oriented to person, Yes oriented to place and Yes oriented to time HENMT: COMMON NORMALS: normocephalic, atraumatic and hearing grossly normal bilaterally HEAD & SCALP: normocephalic and atraumatic Neck/C-Spine: COMMON NORMALS: no JVD Resp: COMMON NORMALS: normal respiratory effort, No retractions, No use of accessory muscles and clear to auscultation bilaterally AUSCULTATION: clear to auscultation bilaterally Cardio: COMMON NORMALS: no JVD, regular rate, regular rhythm and No murmurs present (Cardio) RATE: regular rate RHYTHM: regular rhythm GI: COMMON NORMALS: Soft to palpation and No hepatosplenomegaly present AUSCULTATION: Yes normoactive bowel sounds PALPATION: Yes Soft to palpation, No Tenderness to palpation present (GI), No Guarding due to palpation present (GI) and Yes No hepatosplenomegaly present Extremity: COMMON NORMALS: normal to inspection, capillary refill normal, no clubbing, cyanosis or edema, no calf tenderness and no pedal edema Neuro: SENSORIUM/ORIENTATION: Yes oriented to person, Yes oriented to place and Yes oriented to time Skin: COMMON NORMALS: no rashes or lesions noted GENERAL SKIN EXAM: no rashes or lesions noted Course Vital Signs: Vital signs: Vital Signs Temperature 97.6 F 08/25/20 07:00 Pulse Rate 68 08/25/20 11:12 Respiratory Rate 18 08/25/20 11:12 Blood Pressure 138/70 08/25/20 11:12 Pulse Oximetry 96 08/25/20 11:12 MDM - Weakness MDM Narrative: Medical decision making narrative: PT janes and the patient. He he was able to ambulate with assist of a walker discussed different options with the patient he prefers to stay at home he does not really meet any criteria for admission. 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 He has pain medications he was prescribed earlier this week also gave him Zanaflex and Medrol Dosepak. Lab Data: Labs: Lab Results 08/25/20 08/25/20 08/25/20 Range/Units 07:10 07:10 07:10 WBC 13.1 H (4.0-10.0) 10^3/ uL RBC 5.48 H (4.1-5.3) 10^6/u L Hgb 17.5 H (11.7-16.6) g/dL Hct 52.0 (42.0-52.0) % MCV 94.9 H (80-94) fL MCH 31.9 (28.0-34.0) pg MCHC 33.7 (30.0-36.0) g/dL RDW 12.9 (12.1-15.1) % Plt Count 303 (130-400) 10^3/c mm MPV 9.6 (7.4-10.4) fL Neut % (Auto) 59.2 % Lymph % (Auto) 31.9 % [place] % (Auto) 7.8 % Eos % (Auto) 0.2 % Baso % (Auto) 0.4 % Neut # (Auto) 7.79 H (1.8-7.7) 10^3/u L Lymph # (Auto) 4.2 (0.8-4.8) 10^3/u L [place] # (Auto) 1.0 H (0.2-0.9) 10^3/u L Eos # (Auto) 0.0 (0.0-0.8) 10^3/u L Baso # (Auto) 0.1 (0.0-0.1) 10^3/u L Nucleated RBC % (a uto) 0 % Nucleated RBCs # 0.0 /100WBC Sodium 142 (136-145) mmol/L Potassium 3.0 L (3.5-5.1) mmol/L Chloride 101 (98-107) mmol/L Carbon Dioxide 29 (22-29) mmol/L Anion Gap 15.0 (5-19) BUN 15 (8-23) mg/dL Creatinine 0.8 (0.7-1.2) mg/dL GFR Calculation Not Reportable Glucose 125 H (65-115) mg/dL POC Glucose 130 (70-110) mg/dL Calculated Osmolal ity 296 H (285-295) mOsm/k g Calcium 9.7 (8.5-10.5) mg/dL Total Bilirubin 0.6 (0.15-1.2) mg/dL AST 26 (0-40) U/L ALT 15 (0-41) U/L Alkaline Phosphata se 72 (40-130) IU/L Total Protein 7.6 (6.6-8.7) g/dL Albumin 4.2 (3.5-5.2) g/dL Globulin 3.4 (1.3-4.6) g/dL Urine Color (Yellow) Urine Appearance (CLEAR) Urine pH (5-7) Ur Specific Gravit y (1.005-1.030) Urine Protein (Negative) Urine Glucose (UA) (Normal) Urine Ketones (Negative) Urine Blood (Negative) Urine Nitrate (Negative) Urine Bilirubin (Negative) Urine Urobilinogen (Negative) mg/dL Ur Leukocyte Pam ase (Negative) 08/25/20 Range/Units 07:10 WBC (4.0-10.0) 10^3/ uL RBC (4.1-5.3) 10^6/u L Hgb (11.7-16.6) g/dL Hct (42.0-52.0) % MCV (80-94) fL MCH (28.0-34.0) pg MCHC (30.0-36.0) g/dL RDW (12.1-15.1) % Plt Count (130-400) 10^3/c mm MPV (7.4-10.4) fL Neut % (Auto) % Lymph % (Auto) % [place] % (Auto) % Eos % (Auto) % Baso % (Auto) % Neut # (Auto) (1.8-7.7) 10^3/u L Lymph # (Auto) (0.8-4.8) 10^3/u L [place] # (Auto) (0.2-0.9) 10^3/u L Eos # (Auto) (0.0-0.8) 10^3/u L Baso # (Auto) (0.0-0.1) 10^3/u L Nucleated RBC % (a uto) % Nucleated RBCs # /100WBC Sodium (136-145) mmol/L Potassium (3.5-5.1) mmol/L Chloride (98-107) mmol/L Carbon Dioxide (22-29) mmol/L Anion Gap (5-19) BUN (8-23) mg/dL Creatinine (0.7-1.2) mg/dL GFR Calculation Glucose (65-115) mg/dL POC Glucose (70-110) mg/dL Calculated Osmolal ity (285-295) mOsm/k g Calcium (8.5-10.5) mg/dL Total Bilirubin (0.15-1.2) mg/dL AST (0-40) U/L ALT (0-41) U/L Alkaline Phosphata se (40-130) IU/L Total Protein (6.6-8.7) g/dL Albumin (3.5-5.2) g/dL Globulin (1.3-4.6) g/dL Urine Color Straw (Yellow) Urine Appearance Clear (CLEAR) Urine pH 7 (5-7) Ur Specific Gravit y 1.015 (1.005-1.030) Urine Protein Neg (Negative) Urine Glucose (UA) Norm (Normal) Urine Ketones Negative (Negative) Urine Blood Neg (Negative) Urine Nitrate Negative (Negative) Urine Bilirubin Neg (Negative) Urine Urobilinogen 8 H (Negative) mg/dL Ur Leukocyte Pam ase Negative (Negative) Discharge Plan Discharge Patient Disposition: Home Clinical Impression: Acute left lumbar radiculopathy, Diabetes, HTN (hypertension) Condition: Stable Prescriptions: New Zestoretic 20-12.5 mg tablet 1 tab PO BID Qty: 20 RF: 0 potassium chloride 20 mEq tablet,ER particles/crystals 20 meq PO DAILY Qty: 20 RF: 0 Lyrica 75 mg capsule 75 mg PO BID Qty: 30 RF: 0 No Action isosorbide mononitrate 60 mg tablet extended release 24 hr 60 mg PO DAILY@08 RF: 0 isosorbide mononitrate 30 mg tablet extended release 24 hr 30 mg PO DAILY@08 RF: 0 diltiazem HCl 90 mg capsule,extended release 12 hr 90 mg PO Q12H RF: 0 ezetimibe 10 mg tablet 10 mg PO DAILY RF: 0 clopidogrel 75 mg tablet 75 mg PO DAILY@08 RF: 0 alprazolam 0.25 mg tablet 0.25 mg PO TID PRN (Reason: Anxiety) RF: 0 citalopram 10 mg tablet 10 mg PO DAILY@08 RF: 0 albuterol sulfate [ProAir HFA] 90 mcg/actuation HFA aerosol inhaler 2 puff INHALATION Q6H PRN (Reason: Bronchodilation) RF: 0 aspirin 325 mg tablet 325 mg PO DAILY@08 RF: 0 nitroglycerin [Nitrostat] 0.4 mg tablet, sublingual 0.4 mg SUBLINGUAL Q5M PRN (Reason: Chest Pain) RF: 0 gabapentin 300 mg capsule 300 mg PO BID@08,20 RF: 0 tamsulosin 0.4 mg capsule 0.4 mg PO DAILY@08 RF: 0 acetaminophen-codeine 300-60 mg tablet 1 tab PO BID@08,20 RF: 0 Chantix Continuing Month Box 1 mg Tablet 1 mg PO . DIRECTED RF: 0 [place] 5-325 mg tablet 1 tab PO Q6H PRN (Reason: pain) Qty: 14 RF: 0 Discharge Orders: Discharge ED (Routine); Ordered 08/25/20 Ordered By: Adolfo Villarreal Referrals: Bishop Hall MD [Primary Care Provider] - Activity Restrictions/Additional Instructions: Follow-up with your doctor this week for your blood pressure as well as for the back pain with pain radiating down the left leg. Coding Level of Care Code ED Preschool Education Director for Ledy Hernandez
[2020-08-25 07:50] LABS: Basophils # 0.1 10^3/uL (0.0-0.1); Basophils % 0.4 %; Eosinophils % 0.2 %; Hemoglobin 17.5 g/dL (11.7-16.6); Lymphocytes # 4.2 10^3/uL (0.8-4.8); Lymphocytes % 31.9 %; Mean Corpuscular HGB Conc 33.7 g/dL (30.0-36.0); Mean Corpuscular Hemoglobin 31.9 pg (28.0-34.0); Mean Corpuscular Volume 94.9 fL (80-94); Mean Platelet Volume 9.6 fL (7.4-10.4); Monocytes % 7.8 %; Neutrophils # 7.79 10^3/uL (1.8-7.7); Neutrophils % 59.2 %; Nucleated Red Blood Cells % 0 %; Platelet Count 303 10^3/cmm (130-400); Red Blood Count 5.48 10^6/uL (4.1-5.3); Red Cell Distribution Width 12.9 % (12.1-15.1); White Blood Count 13.1 10^3/uL (4.0-10.0)
[2020-08-25 07:54] LABS: Add Urine Microscopic? NO
[2020-08-25 08:00] LABS: Bilirubin Urine Neg (Negative); Blood Urine Neg (Negative); Glucose Urine UA Norm (Normal); Ketones Urine Negative (Negative); Nitrate Urine Negative (Negative); Protein Urine Neg (Negative); Specific Gravity, Urine 1.015 (1.005-1.030); Urine Appearance Clear (CLEAR); Urine Color Straw (Yellow); pH Urine 7 (5-7)
[2020-08-25 08:01] LABS: Leukocyte Esterase Urine Negative (Negative); Urobilinogen Urine 8 mg/dL (Negative)
[2020-08-25] MEDS: sodium chloride 0.9% 1,000 ML 999 ML IV (08:06)
[2020-08-25] MEDS: cloNIDine 0.1 mg Tablet PO (08:07)
[2020-08-25] MEDS: amlodipine 10 mg Tablet PO (08:07)
[2020-08-25 08:10] LABS: Alanine Aminotransferase 15 U/L (0-41); Albumin Level 4.2 g/dL (3.5-5.2); Alkaline Phosphatase 72 IU/L (40-130); Aspartate Amino Transferase 26 U/L (0-40); Blood Urea Nitrogen 15 mg/dL (8-23); Calcium 9.7 mg/dL (8.5-10.5); Carbon Dioxide 29 mmol/L (22-29); Chloride 101 mmol/L (98-107); Globulin 3.4 g/dL (1.3-4.6); Glucose 125 mg/dL (65-115); Osmolality Calculated 296 mOsm/kg (285-295); Sodium 142 mmol/L (136-145); Total Bilirubin 0.6 mg/dL (0.15-1.2); Total Protein 7.6 g/dL (6.6-8.7)
[2020-08-25] MEDS: HYDROcodone-acetaminophen 5-325 mg Tablet 1 TAB PO (09:39)
== END 2020-08-25 11:12 | disposition home or self-care (01) ==
PROVIDERS: Emergency Provider Family Medicine; PCP Family Medicine
DX: M54.16 Radiculopathy, lumbar region (principal); E11.9 Type 2 diabetes mellitus without complications; I10 Essential (primary) hypertension; Z79.82 Long term (current) use of aspirin; J44.9 Chronic obstructive pulmonary disease, unspecified; Z86.73 Personal history of transient ischemic attack (TIA), and cerebral infarction without residual deficits; F17.210 Nicotine dependence, cigarettes, uncomplicated; M79.605 Pain in left leg
CPT/HCPCS: 12345; 36416; 51798; 72131; 80053; 81003; 82962; 85025; 93005; 93971; 96360; 97161; 97530; 99283; 99284; J7030

== ENCOUNTER 2020-08-29 07:33 | Emergency (ER) | payer MEDICARE, SELFPAY ==
[2020-08-29 07:34] VITALS: BP 133/76; PULSE 66; RESP 17; TEMP 36.9; O2SAT 93; BMI 29.5
--- NOTE | 2020-08-29 08:02 | ECG_ITS ---
[facility] Test Date: 2020-08-29 Pat Name: Jose Perkins Department: Room: Gender: Male Infectious Disease Physician: : 1945 Requested By: Adolfo Antony Order Number: [id number] Asael MD: Uma Patel M.D. Measurements Intervals [place] Rate: 60 P: 43 NM: 170 QRS: 37 QRSD: 115 T: 52 QT: 410 QTc: 410 Interpretive Statements SINUS RHYTHM POSSIBLE RIGHT VENTRICULAR CONDUCTION DELAY [RSR (QR) IN V1/V2] Compared to ECG 08/25/2020 07:11:53 Intraventricular conduction delay no longer present Electronically Signed On 08-29-2020 9:42:12 HOT BRAIDER by Uma Patel M.D. [email or web address]
[2020-08-29] MEDS: orphenadrine 30 mg/mL Inj 2 mL 60 MG IVP (08:10)
--- NOTE | 2020-08-29 08:10 | W.ED.PSYCH ---
HPI - Psych General: Chief Complaint: Psychiatric Symptoms Stated Complaint: PAIN / SI STATEMENT Time Seen by Provider: 08/29/20 07:39 History of Present Illness: HPI Narrative: 75-year-old male presents to the emergency room with continued complaints of back pain. He was seen 4 days ago had a CT of the lumbar spine. He did have some arthritic changes as well as some disc pathology. He has low back pain with left leg radicular symptoms. He has no urinary retention and no loss of bowel control. This morning he was very frustrated with the pain and threatened to harm himself he took a handgun evidently put it to his head. Told his he was going to kill himself. Ultimately ended up calling EMS. He is laying in bed indicating pain to his left leg but not having appearance of severe pain at this time. He specifically stated he was going to kill himself with a gun and actually began executing his plan by retrieving his weapon from his vehicle outside. MD complaint: suicidal ideation Onset (ago): minute(s) Duration: constant Associated symptoms: Reports depression and suicidal ideation; Deny auditory hallucinations, visual hallucinations, delusions, homicidal ideation or racing thoughts Treatments prior to arrival: none If self harm: admits thoughts of self harm, has plan and has acted on plan Details of plan: And threatened to shoot himself in the head with a handgun he does have access to a handgun he did retrieve one from his vehicle. Review of Systems Const: Denies: fever(s), chills, body aches, change in appetite, fatigue or malaise ENMT: Denies: throat pain, ear or mastoid pain, nasal discharge or nasal congestion Card: Denies: chest pain, edema, dyspnea on exertion or orthopnea Resp: Denies: dyspnea, productive cough or non-productive cough GI: Denies: abdominal pain, nausea, vomiting, hematemesis, coffee ground emesis, diarrhea, constipation, bloating, hematochezia or melena : Denies: flank pain, dysuria, urinary frequency or urinary urgency Skin/Breast: Denies: rash or pruritus Neuro: Reports: other (Left leg radicular symptoms) Psych: Reports: depression and suicidal ideation; Denies: visual hallucinations, auditory hallucinations or homicidal ideation [facility] ED PFSH: Medical History (Updated 08/29/20 @ 14:09 by Adolfo Villarreal DO) ASHD (arteriosclerotic heart disease) COPD (chronic obstructive pulmonary disease) CVA (cerebral vascular accident) Diabetes HTN (hypertension) Tobacco abuse Family History Father Cancer Mother Diabetes Social History Smoking and tobacco status: current every day smoker cigarettes Packs smoked per day: 0.25 Alcohol intake: former Physical Exam Const: COMMON NORMALS: no acute distress GENERAL APPEARANCE: cooperative and comfortable ORIENTATION/CONSCIOUSNESS: Yes awake, Yes oriented to person, Yes oriented to place and Yes oriented to time HENMT: COMMON NORMALS: normocephalic, atraumatic and hearing grossly normal bilaterally HEAD & SCALP: normocephalic and atraumatic Neck/C-Spine: COMMON NORMALS: no JVD Resp: COMMON NORMALS: normal respiratory effort, No retractions, No use of accessory muscles and clear to auscultation bilaterally AUSCULTATION: clear to auscultation bilaterally Cardio: COMMON NORMALS: no JVD, regular rate, regular rhythm and No murmurs present (Cardio) RATE: regular rate RHYTHM: regular rhythm GI: COMMON NORMALS: Soft to palpation and No hepatosplenomegaly present AUSCULTATION: Yes normoactive bowel sounds PALPATION: Yes Soft to palpation, No Tenderness to palpation present (GI), No Guarding due to palpation present (GI) and Yes No hepatosplenomegaly present Extremity: COMMON NORMALS: normal to inspection, capillary refill normal, no clubbing, cyanosis or edema, no calf tenderness and no pedal edema Neuro: SENSORIUM/ORIENTATION: Yes oriented to person, Yes oriented to place and Yes oriented to time Psych: THOUGHT CONTENT: No delusions Skin: COMMON NORMALS: no rashes or lesions noted GENERAL SKIN EXAM: no rashes or lesions noted MDM - Psych MDM Narrative: Medical decision making narrative: reflexes normal lower extremities straight leg raising is negative patient resting comfortably in the room at this time. Due to his suicidal ideation expression and attempt to carry through on it we will admit him to the geriatric psych. Lab Data: Labs: Lab Results 12/16/20 12/16/20 12/16/20 Range/Units 06:35 06:35 08:30 WBC 13.1 H (4.0-10.0) 10^3/ uL RBC 5.59 H (4.1-5.3) 10^6/u L Hgb 17.8 H (11.7-16.6) g/dL Hct 54.2 H (42.0-52.0) % MCV 97.0 H (80-94) fL MCH 31.8 (28.0-34.0) pg MCHC 32.8 (30.0-36.0) g/dL RDW 13.2 (12.1-15.1) % Plt Count 297 (130-400) 10^3/c mm MPV 9.8 (7.4-10.4) fL Neut % (Auto) 59.6 % Lymph % (Auto) 28.7 % [place] % (Auto) 7.4 % Eos % (Auto) 3.0 % Baso % (Auto) 0.8 % Neut # (Auto) 7.84 H (1.8-7.7) 10^3/u L Lymph # (Auto) 3.8 (0.8-4.8) 10^3/u L [place] # (Auto) 1.0 H (0.2-0.9) 10^3/u L Eos # (Auto) 0.4 (0.0-0.8) 10^3/u L Baso # (Auto) 0.1 (0.0-0.1) 10^3/u L Nucleated RBC % (a uto) 0 % Nucleated RBCs # 0.0 /100WBC Sodium 140 (136-145) mmol/L Potassium 3.9 (3.5-5.1) mmol/L Chloride 101 (98-107) mmol/L Carbon Dioxide 25 (22-29) mmol/L Anion Gap 17.9 (5-19) BUN 21 (8-23) mg/dL Creatinine 1.0 (0.7-1.2) mg/dL GFR Calculation Not Reportable Glucose 109 (65-115) mg/dL Calculated Osmolal ity 294 (285-295) mOsm/k g Calcium 9.7 (8.5-10.5) mg/dL Total Bilirubin 0.6 (0.15-1.2) mg/dL AST 16 (0-40) U/L ALT 18 (0-41) U/L Alkaline Phosphata se 71 (40-130) IU/L Total Protein 7.3 (6.6-8.7) g/dL Albumin 4.1 (3.5-5.2) g/dL Globulin 3.2 (1.3-4.6) g/dL Urine Color (Yellow) Urine Appearance (CLEAR) Urine pH (5-7) Ur Specific Gravit y (1.005-1.030) Urine Protein (Negative) Urine Glucose (UA) (Normal) Urine Ketones (Negative) Urine Blood (Negative) Urine Nitrate (Negative) Urine Bilirubin (Negative) Urine Urobilinogen (Negative) mg/dL Ur Leukocyte Pam ase (Negative) Salicylates < 0.3 L (3-10) mg/dL Urine Opiates Scre en (Negative) ng/mL Acetaminophen 23.0 (10-30) ug/mL Ur Barbiturates Sc reen (Negative) ng/mL Ur Phencyclidine S crn (Negative) ng/mL Ur Amphetamines Sc reen (Negative) ng/mL U Benzodiazepines Scrn (Negative) ng/mL Urine Cocaine Scre en (Negative) ng/mL U Marijuana (THC) Screen (Negative) ng/mL Ethyl Alcohol < 10 (0-10) mg/dL Influenza Type A A g (Negative) Influenza Type B A g (Negative) SARS-CoV-2 Ag (Rap id) Negative (Negative) 08/29/20 08/29/20 08/29/20 Range/Units 09:00 09:00 10:14 WBC (4.0-10.0) 10^3/ uL RBC (4.1-5.3) 10^6/u L Hgb (11.7-16.6) g/dL Hct (42.0-52.0) % MCV (80-94) fL MCH (28.0-34.0) pg MCHC (30.0-36.0) g/dL RDW (12.1-15.1) % Plt Count (130-400) 10^3/c mm MPV (7.4-10.4) fL Neut % (Auto) % Lymph % (Auto) % [place] % (Auto) % Eos % (Auto) % Baso % (Auto) % Neut # (Auto) (1.8-7.7) 10^3/u L Lymph # (Auto) (0.8-4.8) 10^3/u L [place] # (Auto) (0.2-0.9) 10^3/u L Eos # (Auto) (0.0-0.8) 10^3/u L Baso # (Auto) (0.0-0.1) 10^3/u L Nucleated RBC % (a uto) % Nucleated RBCs # /100WBC Sodium (136-145) mmol/L Potassium (3.5-5.1) mmol/L Chloride (98-107) mmol/L Carbon Dioxide (22-29) mmol/L Anion Gap (5-19) BUN (8-23) mg/dL Creatinine (0.7-1.2) mg/dL GFR Calculation Glucose (65-115) mg/dL Calculated Osmolal ity (285-295) mOsm/k g Calcium (8.5-10.5) mg/dL Total Bilirubin (0.15-1.2) mg/dL AST (0-40) U/L ALT (0-41) U/L Alkaline Phosphata se (40-130) IU/L Total Protein (6.6-8.7) g/dL Albumin (3.5-5.2) g/dL Globulin (1.3-4.6) g/dL Urine Color Yellow (Yellow) Urine Appearance Clear (CLEAR) Urine pH 5 (5-7) Ur Specific Gravit y 1.010 (1.005-1.030) Urine Protein Neg (Negative) Urine Glucose (UA) Norm (Normal) Urine Ketones Negative (Negative) Urine Blood Neg (Negative) Urine Nitrate Negative (Negative) Urine Bilirubin Neg (Negative) Urine Urobilinogen 1 H (Negative) mg/dL Ur Leukocyte Pam ase Negative (Negative) Salicylates (3-10) mg/dL Urine Opiates Scre en Positive H (Negative) ng/mL Acetaminophen 13.0 (10-30) ug/mL Ur Barbiturates Sc reen Negative (Negative) ng/mL Ur Phencyclidine S crn Negative (Negative) ng/mL Ur Amphetamines Sc reen Negative (Negative) ng/mL U Benzodiazepines Scrn Positive H (Negative) ng/mL Urine Cocaine Scre en Negative (Negative) ng/mL U Marijuana (THC) Screen Negative (Negative) ng/mL Ethyl Alcohol (0-10) mg/dL Influenza Type A A g (Negative) Influenza Type B A g (Negative) SARS-CoV-2 Ag (Rap id) (Negative) 08/29/20 Range/Units 13:23 WBC (4.0-10.0) 10^3/ uL RBC (4.1-5.3) 10^6/u L Hgb (11.7-16.6) g/dL Hct (42.0-52.0) % MCV (80-94) fL MCH (28.0-34.0) pg MCHC (30.0-36.0) g/dL RDW (12.1-15.1) % Plt Count (130-400) 10^3/c mm MPV (7.4-10.4) fL Neut % (Auto) % Lymph % (Auto) % [place] % (Auto) % Eos % (Auto) % Baso % (Auto) % Neut # (Auto) (1.8-7.7) 10^3/u L Lymph # (Auto) (0.8-4.8) 10^3/u L [place] # (Auto) (0.2-0.9) 10^3/u L Eos # (Auto) (0.0-0.8) 10^3/u L Baso # (Auto) (0.0-0.1) 10^3/u L Nucleated RBC % (a uto) % Nucleated RBCs # /100WBC Sodium (136-145) mmol/L Potassium (3.5-5.1) mmol/L Chloride (98-107) mmol/L Carbon Dioxide (22-29) mmol/L Anion Gap (5-19) BUN (8-23) mg/dL Creatinine (0.7-1.2) mg/dL GFR Calculation Glucose (65-115) mg/dL Calculated Osmolal ity (285-295) mOsm/k g Calcium (8.5-10.5) mg/dL Total Bilirubin (0.15-1.2) mg/dL AST (0-40) U/L ALT (0-41) U/L Alkaline Phosphata se (40-130) IU/L Total Protein (6.6-8.7) g/dL Albumin (3.5-5.2) g/dL Globulin (1.3-4.6) g/dL Urine Color (Yellow) Urine Appearance (CLEAR) Urine pH (5-7) Ur Specific Gravit y (1.005-1.030) Urine Protein (Negative) Urine Glucose (UA) (Normal) Urine Ketones (Negative) Urine Blood (Negative) Urine Nitrate (Negative) Urine Bilirubin (Negative) Urine Urobilinogen (Negative) mg/dL Ur Leukocyte Pam ase (Negative) Salicylates (3-10) mg/dL Urine Opiates Scre en (Negative) ng/mL Acetaminophen (10-30) ug/mL Ur Barbiturates Sc reen (Negative) ng/mL Ur Phencyclidine S crn (Negative) ng/mL Ur Amphetamines Sc reen (Negative) ng/mL U Benzodiazepines Scrn (Negative) ng/mL Urine Cocaine Scre en (Negative) ng/mL U Marijuana (THC) Screen (Negative) ng/mL Ethyl Alcohol (0-10) mg/dL Influenza Type A A g Negative (Negative) Influenza Type B A g Negative (Negative) SARS-CoV-2 Ag (Rap id) (Negative) Imaging Data^: CXR: Attestation: I personally reviewed and interpreted this imaging study as follows: My impression: No acute infiltrates normal chest compared to previous chest x-ray Radiologist's impression: XR/XR chest 1V portable [id number] IMPRESSION: No acute chest abnormality. Dictated By:Kyle Garcia Jr, MD Signed By:Kyle Garcia Jr, MD Discharge Plan Discharge Patient Disposition: Xfer Psychiatric Hosp Clinical Impression: Suicidal ideation, Acute left lumbar radiculopathy Condition: Stable Referrals: Bishop Hall MD [Primary Care Provider] - Coding Level of Care Code ED Grommet Machine Operator for Chg Fwd Exam Comprehensive
[2020-08-29] MEDS: ketorolac 30 mg/mL INJ 15 MG IVP (08:12)
[2020-08-29 09:03] LABS: Basophils # 0.1 10^3/uL (0.0-0.1); Basophils % 0.8 %; Eosinophils # 0.4 10^3/uL (0.0-0.8); Hematocrit 54.2 % (42.0-52.0); Hemoglobin 17.8 g/dL (11.7-16.6); Lymphocytes # 3.8 10^3/uL (0.8-4.8); Lymphocytes % 28.7 %; Mean Corpuscular HGB Conc 32.8 g/dL (30.0-36.0); Mean Corpuscular Hemoglobin 31.8 pg (28.0-34.0); Mean Platelet Volume 9.8 fL (7.4-10.4); Monocytes % 7.4 %; Neutrophils # 7.84 10^3/uL (1.8-7.7); Neutrophils % 59.6 %; Nucleated Red Blood Cells % 0 %; Platelet Count 297 10^3/cmm (130-400); Red Blood Count 5.59 10^6/uL (4.1-5.3); Red Cell Distribution Width 13.2 % (12.1-15.1); White Blood Count 13.1 10^3/uL (4.0-10.0)
[2020-08-29 09:08] LABS: SARS Covid-2 Antigen Negative (Negative)
[2020-08-29 09:17] LABS: Add Urine Microscopic? NO
[2020-08-29 09:18] LABS: Alanine Aminotransferase 18 U/L (0-41); Albumin Level 4.1 g/dL (3.5-5.2); Alkaline Phosphatase 71 IU/L (40-130); Aspartate Amino Transferase 16 U/L (0-40); Blood Urea Nitrogen 21 mg/dL (8-23); Calcium 9.7 mg/dL (8.5-10.5); Carbon Dioxide 25 mmol/L (22-29); Chloride 101 mmol/L (98-107); Globulin 3.2 g/dL (1.3-4.6); Glucose 109 mg/dL (65-115); Osmolality Calculated 294 mOsm/kg (285-295); Sodium 140 mmol/L (136-145); Total Bilirubin 0.6 mg/dL (0.15-1.2); Total Protein 7.3 g/dL (6.6-8.7)
[2020-08-29 09:23] LABS: Bilirubin Urine Neg (Negative); Blood Urine Neg (Negative); Glucose Urine UA Norm (Normal); Ketones Urine Negative (Negative); Leukocyte Esterase Urine Negative (Negative); Nitrate Urine Negative (Negative); Protein Urine Neg (Negative); Urine Appearance Clear (CLEAR); Urine Color Yellow (Yellow); Urobilinogen Urine 1 mg/dL (Negative); pH Urine 5 (5-7)
[2020-08-29 09:32] LABS: Amphetamines Screen Urine Negative (Negative); Barbiturates Screen Urine Negative (Negative); Benzodiazepines Screen Urine Positive (Negative); Cocaine Screen Urine Negative (Negative); Opiate Screen Urine Positive (Negative); PCP Screen Urine Negative (Negative); THC Screen Urine Negative (Negative)
[2020-08-29 09:49] LABS: Alcohol Level < 10 mg/dL (0-10); Anion Gap 17.9 (5-19); Potassium 3.9 mmol/L (3.5-5.1); Salicylate < 0.3 mg/dL (3-10)
[2020-08-29 10:54] VITALS: BP 144/76; RESP 16
[2020-08-29 14:21] LABS: Influenza A by IFA Negative (Negative)
[2020-08-29 14:22] LABS: Influenza B by IFA Negative (Negative)
--- NOTE | 2020-08-29 14:54 | XR_ITS ---
WS: [id number] XR chest 1V portable [id number] REASON FOR EXAM: for pysch placement FINDINGS: Compared to the previous examination of 08/22/2020, the opacity in the lower right lung field adjacent to the right heart has resolved. Presumably this was a small area of atelectasis. The pulmonary nodule identified in the medial posterior right lower lung on the CT scan of the abdome n and pelvis done 08/22/2020, There is moderate tortuosity of the thoracic aorta and mild cardiac enlargement. Is not identifiable on this chest x-ray. XR/XR chest 1V portable [id number] IMPRESSION: No acute chest abnormality.
--- NOTE | 2020-08-29 14:56 | PC.NURSE ---
pt sleeping, sitter in room
[2020-08-29 15:53] VITALS: BP 160/97; RESP 16
== END 2020-08-29 19:06 ==
PROVIDERS: Emergency Provider Family Medicine; PCP Family Medicine
DX: M54.16 Radiculopathy, lumbar region (principal); R45.851 Suicidal ideations; J44.9 Chronic obstructive pulmonary disease, unspecified; Z86.73 Personal history of transient ischemic attack (TIA), and cerebral infarction without residual deficits; E11.9 Type 2 diabetes mellitus without complications; I10 Essential (primary) hypertension; F17.210 Nicotine dependence, cigarettes, uncomplicated
CPT/HCPCS: 12345; 36415; 71045; 80053; 80306; 80307; 81003; 85025; 87426; 87804; 93005; 96374; 96375; 99284; 99285; J0131; J1885; J2360

== ENCOUNTER 2020-12-16 18:36 | Emergency (ER) | payer MEDICARE, MEDICAID, SELFPAY ==
[2020-12-16 19:14] VITALS: BP 160/103; PULSE 75; RESP 18; TEMP 36.1; O2SAT 100; BMI 28.3
--- NOTE | 2020-12-16 19:22 | XRR_ITS ---
PROCEDURE INFORMATION: Exam: XR Left Hip Exam date and time: 12/16/2020 7:27 PM Age: 75 years old Clinical indication: Injury or trauma; Other: Hooking up car trailer and felt a pop; Blunt trauma (contusions or hematomas); Patient HX: PT was hooking up a car trailer and felt a pop. Pain in left hip TECHNIQUE: Imaging protocol: XR Left hip. Views: 2 or 3 views hip with pelvis when performed. COMPARISON: CT abdomen pelvis w con* [id number] 08/22/2020 10:49 AM FINDINGS: Bones/joints: Unremarkable. No acute fracture. Soft tissues: Unremarkable. XR/XR hip LT 2-3V wo/w pel* [id number] IMPRESSION: No acute findings.
[2020-12-16 19:31] VITALS: BP 185/115; PULSE 76; RESP 16; O2SAT 99
--- NOTE | 2020-12-16 19:44 | W.ED.FALL ---
HPI - Fall General: Chief Complaint: Fall Stated Complaint: L HIP PAIN/FELT POP WHILE HOOKING TRAILER TO CAR Time Seen by Provider: 12/16/20 19:22 History of Present Illness: HPI Narrative: 75-year-old male whom had a pop in his hip yesterday morning while hooking up a trailer. He localizes pain posteriorly to the hip, and possibly to the low back. He notes that the pain radiates down his posterior thigh and his anterior leg. He is having trouble bearing weight. He is in pain even lying. No real numbness or tingling. MD complaint: other Onset (ago): day(s) (1.5) Fall from: other Fall witnessed: no Place fall occurred: home and other (Not a fall) Prolonged down time: no Symptoms prior to fall: none Context: other Location of injury - extremities: Left: thigh Severity: moderate Associated symptoms-after fall: Denies abdominal pain, chest pain or headache(s) Review of Systems Const: Denies: fever(s) Card: Denies: chest pain or palpitations Resp: Denies: dyspnea, productive cough or non-productive cough GI: Denies: abdominal pain, nausea or vomiting Neuro: Denies: headache(s) or lack of coordination PFSH ED PFSH: Medical History (Updated 12/16/20 @ 21:49 by Malick Bell DO) ASHD (arteriosclerotic heart disease) COPD (chronic obstructive pulmonary disease) CVA (cerebral vascular accident) Diabetes HTN (hypertension) Tobacco abuse Family History Father Cancer Mother Diabetes Social History Smoking and tobacco status: current every day smoker cigarettes Packs smoked per day: 0.25 Alcohol intake: former Physical Exam Const: COMMON NORMALS: patient oriented x3 and alert GENERAL APPEARANCE: ill appearing (in pain) Chest: COMMONS NORMALS: normal inspection of the chest Resp: COMMON NORMALS: normal respiratory effort and No use of accessory muscles Cardio: COMMON NORMALS: regular rate and regular rhythm RATE: regular rate RHYTHM: regular rhythm : COMMON NORMALS: Yes no CVA tenderness BLADDER/KIDNEY EXAM: Yes no CVA tenderness Back/Pelvis: COMMON NORMALS: no CVA tenderness OTHER: Tenderness over the left L4-5 and L5-S1 facets. Straight leg raise test is positive on the left not on the right. Logroll test is negative for groin pain. Hip is nontender anteriorly Neuro: COMMON NORMALS: patient oriented x3 SENSORIUM/ORIENTATION: Yes alert Course Vital Signs: Vital signs: Vital Signs Temperature 96.9 F L 12/16/20 19:14 Pulse Rate 76 12/16/20 19:31 Respiratory Rate 16 12/16/20 20:21 Blood Pressure 185/115 12/16/20 19:31 Pulse Oximetry 96 12/16/20 20:21 MDM - Fall MDM Narrative: Medical decision making narrative: X-rays left hip show some osteoarthritic change without fracture. CT of the lumbar spine shows a large disc herniation in the L4-[address] of the pelvis is negative. He will be allowed home, with pain medication and steroids. He may require intervention for this large disc. Will make a case management referral to spine surgery. Discharge Plan Discharge Patient Disposition: Home Clinical Impression: Lumbar disc herniation with radiculopathy Condition: Stable Prescriptions: New Percocet 7.5-325 mg tablet 1 tab PO Q6H PRN (Reason: pain) Qty: 10 RF: 0 Medrol (Cliff) 4 mg tablets,dose pack See Rx Instructions .ROUTE .COMPLEX Qty: 21 RF: 0 No Action isosorbide mononitrate 60 mg tablet extended release 24 hr 60 mg PO DAILY@08 RF: 0 isosorbide mononitrate 30 mg tablet extended release 24 hr 30 mg PO DAILY@08 RF: 0 diltiazem HCl 90 mg capsule,extended release 12 hr 90 mg PO Q12H RF: 0 ezetimibe 10 mg tablet 10 mg PO DAILY RF: 0 clopidogrel 75 mg tablet 75 mg PO DAILY@08 RF: 0 alprazolam 0.25 mg tablet 0.25 mg PO TID PRN (Reason: Anxiety) RF: 0 citalopram 10 mg tablet 10 mg PO DAILY@08 RF: 0 albuterol sulfate [ProAir HFA] 90 mcg/actuation HFA aerosol inhaler 2 puff INHALATION Q6H PRN (Reason: Bronchodilation) RF: 0 aspirin 325 mg tablet 325 mg PO DAILY@08 RF: 0 nitroglycerin [Nitrostat] 0.4 mg tablet, sublingual 0.4 mg SUBLINGUAL Q5M PRN (Reason: Chest Pain) RF: 0 gabapentin 300 mg capsule 300 mg PO BID@08,20 RF: 0 tamsulosin 0.4 mg capsule 0.4 mg PO DAILY@08 RF: 0 acetaminophen-codeine 300-60 mg tablet 1 tab PO BID@08,20 RF: 0 Zestoretic 20-12.5 mg tablet 1 tab PO BID Qty: 20 RF: 0 potassium chloride 20 mEq tablet,ER particles/crystals 20 meq PO DAILY Qty: 20 RF: 0 Lyrica 75 mg capsule 75 mg PO BID Qty: 30 RF: 0 Chantix Continuing Month Box 1 mg Tablet 1 mg PO . DIRECTED RF: 0 [place] 5-325 mg tablet 1 tab PO Q6H PRN (Reason: pain) Qty: 14 RF: 0 Discharge Orders: Discharge ED (Routine); Ordered 12/16/20 Ordered By: Malick Bell Referrals: Bishop Hall MD [Primary Care Provider] - 4-7 days Discharge Diet: Advance as tolerated Discharge Activity: Increase activity as tolerated Patient Instructions: Lumbar Disc Herniation (ED), Lumbar Radiculopathy (ED), Opioid Safety Activity Restrictions/Additional Instructions: Return for worsening weakness, loss of function of bowel or bladder, mental status changes other concerning symptoms. Only use pain medication for severe pain. Use the steroids as directed. Case management referral to orthopedic spine has been placed to get you an appointment. Coding Level of Care Code ED Marketing Co Op for Ledy Fwd Exam Detailed
--- NOTE | 2020-12-16 20:07 | CTR_ITS ---
PROCEDURE INFORMATION: Exam: CT Lumbar Spine Without Contrast Exam date and time: 12/16/2020 8:30 PM Age: 75 years old Clinical indication: Patient HX: C/O L hip pain after feeling a pop while hooking up a trailer; Additional info: Left radiculopathy TECHNIQUE: Imaging protocol: Computed tomography images of the lumbar spine without contrast. Radiation optimization: All CT scans at this facility use at least one of these dose optimization techniques: automated exposure control; mA and/or kV adjustment per patient size (includes targeted exams where dose is matched to clinical indication); or iterative reconstruction. COMPARISON: CT lumbar spine wo con* [id number] 08/25/2020 8:04 AM RADIATION DOSE METRICS: Total DLP (mGy-cm): 2393.5 FINDINGS: Vertebrae: Mild levoscoliosis. Discs/Spinal canal/Neural foramina: Large 1.5 x 1.1 cm left lateral L4-L5 disc herniation which could compromise the exiting left L4 nerve root. Axial series 3, image 59-60. Vasculature: Calcification of the abdominal aorta and/or iliac arteries consistent with atherosclerotic vessel disease. Incompletely visualize in fusiform infrarenal abdominal aortic aneurysm measuring up to 4.7 cm in diameter. No rupture. Soft tissues: Unremarkable. CT/CT lumbar spine wo con* [id number] IMPRESSION: 1. Large 1.5 x 1.1 cm left lateral L4-L5 disc herniation which could compromise the exiting left L4 nerve root. Axial series 3, image 59-60. 2. Incompletely visualize in fusiform infrarenal abdominal aortic aneurysm measuring up to 4.7 cm in diameter. No rupture. Radiation Dose CTDIVOL = (mGy): DLP = 2393.5 (mGy-cm)
--- NOTE | 2020-12-16 20:07 | CTR_ITS ---
PROCEDURE INFORMATION: Exam: CT Pelvis Without Contrast; Skeletal Exam date and time: 12/16/2020 8:30 PM Age: 75 years old Clinical indication: Left hip; Patient HX: C/O L hip pain after feeling a pop while hooking up a trailer; Additional info: Left hip pain TECHNIQUE: Imaging protocol: Computed tomography images of the pelvis without contrast. Exam focused on the skeletal structures. Radiation optimization: All CT scans at this facility use at least one of these dose optimization techniques: automated exposure control; mA and/or kV adjustment per patient size (includes targeted exams where dose is matched to clinical indication); or iterative reconstruction. COMPARISON: CT abdomen pelvis w con* [id number] 08/22/2020 10:49 AM RADIATION DOSE METRICS: Total DLP (mGy-cm): 400.17 FINDINGS: Stomach and bowel: Mild colonic diverticulosis. Reproductive: Enlarged prostate greater than or equal to 5.0 cm; correlation with PSA levels is recommended. Vasculature: Calcification of the abdominal aorta and/or iliac arteries consistent with atherosclerotic vessel disease. Bones/joints: 1.5 x 0.8 cm mass in the left L4-L5 neurovascular foramen most consistent with left lateral L4-L5 disc herniation. Correlate with left L4 radiculopathy. Soft tissues: Unremarkable. CT/CT pelvis wo con [id number] IMPRESSION: 1. Enlarged prostate greater than or equal to 5.0 cm; correlation with PSA levels is recommended. 2. 1.5 x 0.8 cm mass in the left L4-L5 neurovascular foramen most consistent with left lateral L4-L5 disc herniation. Correlate with left L4 radiculopathy. Radiation Dose CTDIVOL = (mGy): DLP = 400.17 (mGy-cm)
[2020-12-16] MEDS: ondansetron 4 MG Tablet PO (20:18)
[2020-12-16 20:21] VITALS: RESP 16; O2SAT 96
[2020-12-16] MEDS: HYDROmorphone 1 mg/mL INJ 1 mL 2 MG IM (20:21)
--- NOTE | 2020-12-17 12:13 | DCPLANNER ---
trade show manager had message to schedule a follow up appointment for patient with ortho. trade show manager called the ortho clinic, spoke with Reyna, gave clinic patients information. trade show manager was told that patients information would be printed and reviewed. Clinic will call patient with appointment information.
--- NOTE | 2020-12-19 13:48 | DCPLANNER ---
Patient has a follow up appointment scheduled for December at 1:[address] Dickson at [facility]. Clinic will call patient with appointment information.
--- NOTE | 2021-02-08 08:08 | DCPLANNER ---
Patient had a follow up appointment scheduled for 12.20.[address] Dickson at [facility] - patient did attend appointment.
== END 2020-12-16 22:05 | disposition home or self-care (01) ==
PROVIDERS: Emergency Provider Emergency Medicine; PCP Family Medicine
DX: M51.16 Intervertebral disc disorders with radiculopathy, lumbar region (principal); Z79.82 Long term (current) use of aspirin; Z79.02 Long term (current) use of antithrombotics/antiplatelets; J44.9 Chronic obstructive pulmonary disease, unspecified; Z86.73 Personal history of transient ischemic attack (TIA), and cerebral infarction without residual deficits; E11.9 Type 2 diabetes mellitus without complications; I10 Essential (primary) hypertension; F17.210 Nicotine dependence, cigarettes, uncomplicated
CPT/HCPCS: 72131; 72192; 73502; 96372; 99283; E0114; J1170; Q0162

== ENCOUNTER → 2020-12-20 13:07 | Outpatient (BNVA) | payer MEDICARE, MEDICAID, SELFPAY | PROVIDERS: PCP Family Medicine; Referring Provider Emergency Medicine; Visit Provider Orthopaedic Surgery | DX: M54.9 Dorsalgia, unspecified (principal); M48.07 Spinal stenosis, lumbosacral region | CPT/HCPCS: 72110 ==

== ENCOUNTER 2021-01-22 13:12 | Outpatient (CLI) | payer MEDICARE, MEDICAID, SELFPAY ==
--- NOTE | 2021-01-22 13:45 | MR_ITS ---
WS: [id number] MRI LUMBAR SPINE NONCONTRAST HISTORY: M51.16 - Intervertebral disc disorders with radiculopathy, lumbar region COMPARISON: CT lumbar spine 12/16/2020. TECHNIQUE: Sagittal and axial multisequence imaging is submitted. Mild stenosis in the cervical canal C3-4 to C6-7. Normal posterior alignment. No marrow edema or acute fracture. There is very slight anterior wedging of the T11 vertebral body with no acute fracture. Mild disc desiccation throughout without significant loss of height. Conus terminates normally at L1. L1-L2: Very mild annular disc bulge with shallow central disc protrusion and mild ligamentum flavum h ypertrophy. No significant stenosis. L2-L3: Mild annular disc bulge. Moderate ligamentum flavum hypertrophy and facet arthritis. Mild encr oachment into the subarticular recesses but no significant encroachment upon the nerve roots. L3-L4: Mild annular disc bulging and mild osteophytosis. Moderate to severe bilateral ligamentum flav um hypertrophy and facet arthritis. Increased fluid in the facet joints bilaterally. Mild central and bilateral subarticular and foraminal stenosis. L4-L5: Diffuse annular disc bulging and mild osteophytic ridging. There is a moderate-sized disc prot rusion extending into the LEFT foramen and far lateral causing displacement of the LEFT L4 nerve root posteriorly. Complete effacement of fat in the LEFT foramen. Mild RIGHT foraminal narrowing. Mild ce ntral and bilateral subarticular recess stenosis greater on the LEFT. L5-S1: Mild annular disc bulging and osteophytic ridging with mild ligamentum flavum hypertrophy. Mil d bilateral foraminal stenosis and LEFT subarticular stenosis. Bilateral renal cysts. The largest cyst associated with the RIGHT kidney incompletely visualized but the maximum diameter of 3.5 cm. Large abdominal aortic aneurysm with a maximum diameter of 4.9 cm in the distal abdominal aorta. Ther e is evidence for thrombus and mixed signal in the lumen. Aneurysm was previously described on 020 with a maximum diameter 4.4 cm. MR/MR lumbar spine wo con* [id number] IMPRESSION: 1. LEFT L4-5 foraminal disc protrusion causing displacement of the L4 nerve ro ot and severe stenosis in the foramen. 2. Mild central, bilateral subarticular recess and RIGHT foraminal stenosis al so at L4-5. 3. Mild central, bilateral subarticular recess and foraminal stenosis at L3-4. 4. Mild bilateral foraminal and LEFT subarticular recess stenosis at L5-S1. 5. Abdominal aortic aneurysm with a maximum transverse diameter 4.9 cm is inco mpletely visualized. Prior measurement of the aneurysm on 08/22/2020 was 4.3 cm. Aneurysm appears to be enlarging. Consider follow-up CT angiogram of aorta.
== END 2021-01-22 13:13 | disposition home or self-care (01) ==
PROVIDERS: PCP Family Medicine; Visit Provider Orthopaedic Surgery
DX: M51.16 Intervertebral disc disorders with radiculopathy, lumbar region (principal); M48.061 Spinal stenosis, lumbar region without neurogenic claudication; M48.07 Spinal stenosis, lumbosacral region; I71.4 Abdominal aortic aneurysm, without rupture
CPT/HCPCS: 72148

== ENCOUNTER 2021-04-09 13:38 | Emergency (ER) | payer MEDICARE, MEDICAID, SELFPAY ==
--- NOTE | 2021-04-09 13:41 | ECG_ITS ---
[facility] Test Date: 2021-04-09 Pat Name: Jose Perkins Department: Room: Gender: Male Physician Underwriter: : 1945 Requested By: Marian Murcia Order Number: [id number] Asael MD: Dalton Stephenson M.D. Measurements Intervals [place] Rate: 75 P: 101 TN: 152 QRS: 58 QRSD: 125 T: 67 QT: 408 QTc: 458 Interpretive Statements SINUS RHYTHM MODERATE INTRAVENTRICULAR CONDUCTION DELAY [110+ ms QRS DURATION] Compared to ECG 08/29/2020 08:21:39 Intraventricular conduction delay now present Electronically Signed On 04-09-2021 14:55:01 CDT by Dalton Stephenson M.D. [email or web address] for [facility].[employer]/store/OM/[id number]
--- NOTE | 2021-04-09 13:41 | XR_ITS ---
WS: [id number] XR chest 1V portable [id number] REASON FOR EXAM: chest pain FINDINGS: Moderate tortuosity and ectasia of the thoracic aorta. Normal heart size. Chronic appearing interstitial changes in the lung bases. No definite acute pulmonary parenchymal or pleural abnormality. Degenerative changes in the mid and lower thoracic spine and both shoulder joints. Bony thorax is oth erwise intact. XR/XR chest 1V portable [id number] IMPRESSION: No acute chest abnormality. The chest appears unchanged compared to previous ex amination of 08/29/2020.
[2021-04-09 14:28] VITALS: BP 139/82; PULSE 71; RESP 20; TEMP 37.2; O2SAT 94; BMI 28.7
--- NOTE | 2021-04-09 15:41 | ECG_ITS ---
[facility] Test Date: 2021-04-09 Pat Name: Jose Perkins Department: Room: Gender: Male Postdoctoral Fellow: : 1945 Requested By: Marian Murcia Order Number: [id number] Asael MD: Dalton Stephenson M.D. Measurements Intervals [place] Rate: 72 P: 100 MD: 179 QRS: 126 QRSD: 129 T: 125 QT: 409 QTc: 450 Interpretive Statements SINUS RHYTHM ARM LEADS REVERSED [INVERTED P AND QRS IN I] ATYPICAL ECG Compared to ECG 04/09/2021 14:41:38 Intraventricular conduction delay no longer present Electronically Signed On 04-10-2021 0:53:20 CDT by Dalton Stephenson M.D. [email or web address] [facility].[place]/store/OM/[id number]
[2021-04-09 18:18] LABS: Basophils # 0.1 10^3/uL (0.0-0.1); Basophils % 0.8 %; Eosinophils # 0.2 10^3/uL (0.0-0.8); Eosinophils % 1.7 %; Hematocrit 51.4 % (42.0-52.0); Hemoglobin 16.4 g/dL (11.7-16.6); Lymphocytes # 3.2 10^3/uL (0.8-4.8); Lymphocytes % 35.6 %; Mean Corpuscular HGB Conc 31.9 g/dL (30.0-36.0); Mean Corpuscular Hemoglobin 31.1 pg (28.0-34.0); Mean Corpuscular Volume 97.3 fL (80-94); Mean Platelet Volume 9.6 fL (7.4-10.4); Monocytes # 0.6 10^3/uL (0.2-0.9); Monocytes % 6.3 %; Neutrophils # 4.98 10^3/uL (1.8-7.7); Neutrophils % 55.4 %; Nucleated Red Blood Cells % 0 %; Platelet Count 227 10^3/cmm (130-400); Red Blood Count 5.28 10^6/uL (4.1-5.3); Red Cell Distribution Width 13.3 % (12.1-15.1)
[2021-04-09 18:34] LABS: Alanine Aminotransferase 15 U/L (0-41); Alkaline Phosphatase 80 IU/L (40-130); Aspartate Amino Transferase 18 U/L (0-40); Blood Urea Nitrogen 9 mg/dL (8-23); Carbon Dioxide 24 mmol/L (22-29); Chloride 102 mmol/L (98-107); Creatinine Clr Calc Pharmacy 87.5954; Globulin 2.8 g/dL (1.3-4.6); Glucose 183 mg/dL (65-115); Osmolality Calculated 293 mOsm/kg (285-295); Sodium 140 mmol/L (136-145); Total Bilirubin 0.5 mg/dL (0.15-1.2); Total Protein 6.8 g/dL (6.6-8.7)
[2021-04-09 18:37] LABS: Anion Gap 17.7 (5-19); Potassium 3.7 mmol/L (3.5-5.1)
[2021-04-09 18:39] LABS: Troponin(5th) Baseline 52 ng/L (0-15)
== END 2021-04-10 00:31 ==
PROVIDERS: Physician Assistant; Emergency Provider Family Medicine; PCP Family Medicine
DX: F41.9 Anxiety disorder, unspecified (principal); Z53.21 Procedure and treatment not carried out due to patient leaving prior to being seen by health care provider
CPT/HCPCS: 71045; 80053; 84484; 85025; 93005

== ENCOUNTER 2021-04-11 14:11 | Emergency (ER) | payer MEDICARE, MEDICAID, SELFPAY ==
[2021-04-11 14:35] VITALS: BP 150/93; PULSE 71; RESP 16; TEMP 36.7; O2SAT 96; BMI 28.7
--- NOTE | 2021-04-11 15:03 | W.ED.ANXIETY ---
HPI - Anxiety General: Chief Complaint: Anxiety Stated Complaint: MHE Time Seen by Provider: 04/11/21 14:47 Source: patient Mode of arrival: ambulatory Limitations: no limitations History of Present Illness: HPI narrative: Patient is a 75-year-old male here with complaints of anxiety and panic attacks. Patient tells me he has suffered from panic attacks for several years now. He states he has been placed on medications by his primary care provider for these. He states over the past couple of days he has been more stressed than usual and is requesting inpatient hospitalization to a geriatric facility. Patient is not suicidal or homicidal. He is not having hallucinations. No history of self harming behavior. MD complaint: anxiety Onset (ago): year(s) Symptoms: dyspnea, chest pain, extremity numbness/tingling and sense of impending doom Severity: moderate Quality: intermittent Place: home History of similar episodes: Yes Provoking factors: emotional stress Relieving factors: medication Exacerbating factors: nothing Associated symptoms: Reports no associated symptoms; Deny chest pain, chills, fever(s), headache(s), nausea, palpitations, syncope or vomiting Review of Systems Const: Denies: fever(s) or chills Card: Denies: chest pain, palpitations, lightheadedness or syncope Resp: Denies: dyspnea GI: Denies: abdominal pain, nausea, vomiting or diarrhea Skin/Breast: Denies: rash Neuro: Denies: headache(s) Psych: Reports: anxiety and panic attacks; Denies: depression, sleeping more, hopelessness, loss of interest, visual hallucinations, auditory hallucinations, suicidal ideation or homicidal ideation [facility] ED PFSH: Medical History (Updated 04/11/21 @ 15:06 by SPENCER Negrete) ASHD (arteriosclerotic heart disease) COPD (chronic obstructive pulmonary disease) CVA (cerebral vascular accident) Diabetes HTN (hypertension) Tobacco abuse Family History Father Cancer Mother Diabetes Social History Smoking and tobacco status: current every day smoker cigarettes Packs smoked per day: 0.25 Alcohol intake: former Physical Exam Const: COMMON NORMALS: no acute distress, patient oriented x3, alert and well nourished GENERAL APPEARANCE: cooperative and well kempt Resp: COMMON NORMALS: normal respiratory effort and clear to auscultation bilaterally AUSCULTATION: clear to auscultation bilaterally Cardio: COMMON NORMALS: regular rate and regular rhythm RATE: regular rate RHYTHM: regular rhythm Neuro: COMMON NORMALS: patient oriented x3 SENSORIUM/ORIENTATION: Yes alert Psych: COMMON NORMALS: mental status grossly normal, Normal thought process present, cooperative, normal affect, speech normal, activity/motor behavior normal, denies hallucinations, denies homicidal ideation and denies suicidal ideation APPEARANCE: Yes grossly normal and Yes well kempt ATTITUDE: Yes calm ACTIVITY/MOTOR BEHAVIOR: Yes appropriate eye contact and No psychomotor agitation SPEECH: Yes normal speech MOOD & AFFECT: Yes euthymic mood THOUGHT PROCESS: Normal thought process present THOUGHT CONTENT: Yes Normal thought content present ATTENTION/CONCENTRATION: Yes attention grossly intact and Yes concentration grossly intact MEMORY/COGNITION: Yes memory grossly intact and Yes cognition grossly intact INSIGHT: Good insight present (Psych) JUDGEMENT: Good judgement present (Psych) Course Vital Signs: Vital signs: Vital Signs Temperature 98.0 F 04/11/21 14:35 Pulse Rate 71 04/11/21 14:35 Respiratory Rate 16 04/11/21 14:35 Blood Pressure 150/93 04/11/21 14:35 Pulse Oximetry 96 04/11/21 14:35 MDM - Anxiety MDM Narrative: Medical decision making narrative: Patient states his symptoms are identical to countless episodes he has had previously over the past years. There is no indication for emergent transfer to a geriatric psychiatric facility as he is not suicidal or homicidal. Patient states he recently saw PCP on Thursday and changed some of his medications-unsure of which. I told patient from the ED I do not want to change or add any medications as there is a lack of follow-up on my end. Patient is requesting services at [facility]. I told patient he may go as a walk-in for his intake screening exam. I will also have case management contact [facility] to ensure an appropriate follow-up appointment. Return to ED precautions given. Discharge Plan Discharge Patient Disposition: Home Clinical Impression: Chronic anxiety Condition: Stable Prescriptions: No Action isosorbide mononitrate 60 mg tablet extended release 24 hr 60 mg PO DAILY@08 RF: 0 diltiazem HCl 90 mg capsule,extended release 12 hr 90 mg PO DAILY RF: 0 ezetimibe 10 mg tablet 10 mg PO DAILY RF: 0 clopidogrel 75 mg tablet 75 mg PO DAILY@08 RF: 0 citalopram 10 mg tablet 10 mg PO DAILY@08 RF: 0 albuterol sulfate [ProAir HFA] 90 mcg/actuation HFA aerosol inhaler 2 puff INHALATION Q6H PRN (Reason: Bronchodilation) RF: 0 nitroglycerin [Nitrostat] 0.4 mg tablet, sublingual 0.4 mg SUBLINGUAL Q5M PRN (Reason: Chest Pain) RF: 0 gabapentin 300 mg capsule 300 mg PO BID@08,20 RF: 0 prednisone 20 mg tablet 20 mg PO DAILY Qty: 15 RF: 0 Zestoretic 20-12.5 mg tablet 1 tab PO BID Qty: 20 RF: 0 potassium chloride 20 mEq tablet,ER particles/crystals 20 meq PO DAILY Qty: 20 RF: 0 Lyrica 75 mg capsule 75 mg PO BID Qty: 30 RF: 0 Discharge Orders: Discharge ED (Routine); Ordered 04/11/21 Ordered By: Marian Murcia Referrals: Bishop Hall MD [Primary Care Provider] - Patient Instructions: Anxiety (ED) Activity Restrictions/Additional Instructions: As we discussed my recommendation would be to [facility] and ask for an intake screening exam. They should then be able to set you up with appropriate services following that visit. He may return to the emergency department for any thoughts of harming your self or others. Coding Level of Care Code ED Forestry Faculty Member for Ledy Hernandez
[2021-04-11 15:17] VITALS: RESP 18
--- NOTE | 2021-04-16 09:53 | DCPLANNER ---
manager printing had message to speak with patient about services at [facility]. manager printing called phone number [phone], unable to speak with patient at this time, a voicemail was left for patient to return welfare case worker phone call.
== END 2021-04-11 15:12 | disposition home or self-care (01) ==
PROVIDERS: Emergency Provider Physician Assistant; PCP Family Medicine
DX: F41.9 Anxiety disorder, unspecified (principal); I10 Essential (primary) hypertension; E11.9 Type 2 diabetes mellitus without complications; J44.9 Chronic obstructive pulmonary disease, unspecified; I25.10 Atherosclerotic heart disease of native coronary artery without angina pectoris; F17.210 Nicotine dependence, cigarettes, uncomplicated; Z86.73 Personal history of transient ischemic attack (TIA), and cerebral infarction without residual deficits
CPT/HCPCS: 99281

== ENCOUNTER → 2021-04-22 11:34 | Outpatient (BNVA) | payer MEDICARE, MEDICAID, SELFPAY | PROVIDERS: PCP Family Medicine; Referring Provider Specialist; Visit Provider Specialist | DX: H90.3 Sensorineural hearing loss, bilateral (principal); H93.13 Tinnitus, bilateral; R42 Dizziness and giddiness | CPT/HCPCS: 80053; 81003; 82565; 84443; 84520; 85651; 86780 ==

== ENCOUNTER 2021-05-10 12:59 | Outpatient (CLI) | payer MEDICARE, SELFPAY ==
--- NOTE | 2021-05-10 13:07 | MR_ITS ---
WS: [id number] MRI BRAIN WITH HIGH-RESOLUTION IMAGING THROUGH THE INTERNAL AUDITORY CANALS WITHOUT AND WITH CONTRAST HISTORY: Bilateral SENSORINEURAL HEARING Loss; pratima Tinnitus; dizziness/giddiness COMPARISON: 01/17/2013 TECHNIQUE: Multiplanar, multisequence imaging is performed through the brain. Additional 3 mm imaging performed in multiple planes through the internal auditory canal. Postcontrast imaging with 20 ml's of MultiHance. No acute intracranial hemorrhage, midline shift, edema or mass effect. Extensive T2 and FLAIR signal hyperintensities throughout the white matter. Prior infarct in the RIGH T centrum semiovale ovale. Bilateral lacunar infarcts in the basal ganglia. Additional chronic microv ascular ischemic disease bilaterally within the nadja. There is been moderate progression of chronic i schemic type changes since the prior study from 2012. Ventricles and extra-axial spaces are normal. No inferior displacement of cerebellar tonsils. Clivus and pituitary gland are normal. Internal and external auditory canals: Unremarkable. Cranial nerves VII and VIII complexes: Unremarkable. No enhancement or mass. Cerebellopontine angles: Normal. Paranasal sinuses: Mild mucoperiosteal thickening in the paranasal sinuses. Mastoid air cells: Small bilateral mastoid air cell effusions. Calvarium and scalp: Normal. Visualized [place] of [place]i and dural venous sinuses demonstrate no abnormality. MR/MR iac's wo/w con* [id number] IMPRESSION: 1. No abnormality noted at the internal auditory canals or the cerebellopontin e angles. 2. Moderate progression of chronic microvascular ischemic changes in the nadja and supratentorial white matter. Multiple small lacunar infarcts in the basal g anglia are stable. 3. No enhancing masses.
[2021-05-10] MEDS: gadobenate dimeglumine 20 mL vial IV (15:28)
== END 2021-05-10 13:00 | disposition home or self-care (01) ==
LOC: RADSHAW 13:06
PROVIDERS: PCP Family Medicine; Visit Provider Specialist
DX: H90.3 Sensorineural hearing loss, bilateral (principal); H93.13 Tinnitus, bilateral; R42 Dizziness and giddiness
CPT/HCPCS: 70553; A9577

== ENCOUNTER 2021-06-12 08:04 | Observation (INO) | payer MEDICARE, SELFPAY ==
[2021-06-12] VITALS (14 sets, daily range): BP systolic 152–188; BP diastolic 80–117; PULSE 58–75; RESP 12–19; TEMP 36.1–37.1; O2SAT 90–94; BMI 27.9
--- NOTE | 2021-06-12 08:05 | XR_ITS ---
WS: [id number] Exam: XR chest 1V portable [id number] Date/Time of Exam: 06/12/2021 8:11 AM Reason For Exam: chest pain Comparison 04/09/2021. The lungs are clear and fully expanded. Normal cardiomediastinal structures and bony elements. No ple ural effusions. Monitoring leads superimpose the chest. XR/XR chest 1V portable [id number] IMPRESSION: 1. No acute cardiopulmonary finding. No change.
--- NOTE | 2021-06-12 08:05 | ECG_ITS ---
[facility] Test Date: 2021-06-12 Pat Name: Jose Perkins Department: Room: Gender: Male Tie Up Worker: : 1945 Requested By: Adolfo Antony Order Number: [id number] Asael MD: Uma Patel M.D. Measurements Intervals [place] Rate: 66 P: 44 MI: 170 QRS: 46 QRSD: 112 T: 67 QT: 420 QTc: 441 Interpretive Statements SINUS RHYTHM MODERATE INTRAVENTRICULAR CONDUCTION DELAY [110+ ms QRS DURATION] INTERPRETATION BASED ON A DEFAULT AGE OF 40 YEARS Compared to ECG 04/09/2021 16:03:17 Intraventricular conduction delay now present Electronically Signed On 06-12-2021 21:29:22 CDT by Uma Patel M.D. [email or web address] behavioral [email or web address] township [email or web address] memorial [id number] [email or web address]
--- NOTE | 2021-06-12 08:13 | ED_ITS ---
HPI - Chest Pain General: Chief Complaint: Chest Pain Stated Complaint: CHEST PAIN Time Seen by Provider: 06/12/21 08:05 History of Present Illness: HPI narrative: 68-year-old male presents emergency room complaining of chest pain is left-sided chest pain radiating to his left arm again this morning when he first woke up. He rates the pain at a 5-6 out of 10 initially after aspirin and sublingual nitro decreased to a 4 which is where he states that when he presents here. He has some shortness of breath with it as well. Patient is nondiabetic he has a known history of coronary disease several years ago he had stents placed he is a heavy smoker and has been since the age of 7. He currently is taking clopidogrel and states he is continue to take that regularly. No acute ST changes on EMS EKG on arrival. MD complaint: chest pain Pertinent past history: coronary artery disease Onset (ago): minute(s) Timing of current episode: episodic Onset: during rest Pain location: left chest Pain radiation: left arm Severity: moderate Quality: tightness and heaviness Relieving factors: nitroglycerin and rest Exacerbating factors: nothing Associated symptoms: Reports dyspnea; Deny abdominal pain, diaphoresis, fever(s), leg edema, nausea, palpitations, sense of impending doom, syncope or vomiting Treatment prior to arrival: aspirin and nitroglycerin Review of Systems Const: Denies: fever(s) or diaphoresis ENMT: Denies: throat pain, ear or mastoid pain, nasal discharge or nasal congestion Card: Denies: palpitations or syncope Resp: Reports: dyspnea GI: Denies: abdominal pain, nausea or vomiting : Denies: flank pain, dysuria, urinary frequency or urinary urgency Skin/Breast: Denies: rash or pruritus PFS ED PFSH: Medical History (Updated 06/17/21 @ 07:26 by Adolfo Villarreal DO) ASHD (arteriosclerotic heart disease) BPH (benign prostatic hyperplasia) COPD (chronic obstructive pulmonary disease) CVA (cerebral vascular accident) Depression Diabetes GERD (gastroesophageal reflux disease) HTN (hypertension) Hyperlipidemia Peripheral neuropathy Tobacco abuse Surgical History (Updated 06/12/21 @ 13:48 by Rex Ceron MD) History of appendectomy S/P cataract extraction S/P tonsillectomy Family History Father Cancer Mother Diabetes Social History Smoking and tobacco status: current every day smoker cigarettes Packs smoked per day: 0.25 Alcohol intake: former Physical Exam Const: COMMON NORMALS: no acute distress GENERAL APPEARANCE: cooperative and comfortable ORIENTATION/CONSCIOUSNESS: Yes awake, Yes oriented to person, Yes oriented to place and Yes oriented to time HENMT: COMMON NORMALS: normocephalic, atraumatic and hearing grossly normal bilaterally HEAD & SCALP: normocephalic and atraumatic Neck/C-Spine: COMMON NORMALS: no JVD Resp: COMMON NORMALS: normal respiratory effort, No retractions, No use of accessory muscles and clear to auscultation bilaterally AUSCULTATION: clear to auscultation bilaterally Cardio: COMMON NORMALS: no JVD, regular rate, regular rhythm and No murmurs present (Cardio) RATE: regular rate RHYTHM: regular rhythm GI: COMMON NORMALS: Soft to palpation and No hepatosplenomegaly present AUSCULTATION: Yes normoactive bowel sounds PALPATION: Yes Soft to palpation, No Tenderness to palpation present (GI), No Guarding due to palpation present (GI) and Yes No hepatosplenomegaly present Extremity: COMMON NORMALS: normal to inspection, capillary refill normal, no clubbing, cyanosis or edema, no calf tenderness and no pedal edema Neuro: SENSORIUM/ORIENTATION: Yes oriented to person, Yes oriented to place and Yes oriented to time Skin: COMMON NORMALS: no rashes or lesions noted GENERAL SKIN EXAM: no rashes or lesions noted Course Vital Signs: Vital signs: Vital Signs Temperature 98.2 F 06/13/21 16:41 Pulse Rate 75 06/13/21 16:41 Respiratory Rate 20 H 06/13/21 16:41 Blood Pressure 157/98 06/13/21 16:41 Pulse Oximetry 92 06/13/21 16:41 MDM - Chest Pain MDM Narrative: Medical decision making narrative: Chest pain improved with nitroglycerin. Patient has no history of upper respiratory symptoms no previous Covid has been vaccinated. Patient has significant refractory risk factors concerning for acute coronary syndrome will admit for further evaluation discussed Dr. Shirley orders written Lab Data: Labs: Lab Results 06/12/21 06/12/21 06/12/21 08:16 08:16 08:16 WBC 10.2 10^3/uL H 10 ^3/uL (4.0-10.0) RBC 5.37 10^6/uL H 10 ^6/uL (4.1-5.3) Hgb 16.5 g/dL g/dL (11.7-16.6) Hct 50.0 % % (42.0-52.0) MCV 93.1 fl fl (80-94) MCH 30.7 pg pg (28.0-34.0) MCHC 33.0 g/dL g/dL (30.0-36.0) RDW 13.2 % % (12.1-15.1) Plt Count 179 10^3/cmm 10^3 /cmm (130-400) MPV 9.8 fL fL (7.4-10.4) Neut % (Auto) 39.1 % % Lymph % (Auto) 41.3 % % [place] % (Auto) 8.9 % % Eos % (Auto) 9.5 % % Baso % (Auto) 0.9 % % Neut # (Auto) 3.99 10^3/uL 10^3 /uL (1.8-7.7) Lymph # (Auto) 4.2 10^3/uL 10^3/ uL (0.8-4.8) [place] # (Auto) 0.9 10^3/uL 10^3/ uL (0.2-0.9) Eos # (Auto) 1.0 10^3/uL H 10^ 3/uL (0.0-0.8) Baso # (Auto) 0.1 10^3/uL 10^3/ uL (0.0-0.1) Nucleated RBC % (a uto) 0 % % Nucleated RBCs # 0.0 /100WBC /100W BC Sodium 140 mmol/L mmol/L (136-145) Potassium 3.8 mmol/L mmol/L (3.5-5.1) Chloride 104 mmol/L mmol/L (98-107) Carbon Dioxide 24 mmol/L mmol/L (22-29) Anion Gap 15.8 (5-19) BUN 10 mg/dL mg/dL (8-23) Creatinine 0.8 mg/dL mg/dL (0.7-1.2) GFR Calculation Not Reportable Glucose 92 mg/dL mg/dL (65-115) Calculated Osmolal ity 289 mOsm/kg mOsm/ kg (285-295) Calcium 8.9 mg/dL mg/dL (8.5-10.5) Total Bilirubin 0.3 mg/dL mg/dL (0.15-1.2) AST 24 U/L U/L (0-40) ALT 29 U/L U/L (0-41) Alkaline Phosphata se 72 IU/L IU/L (40-130) Troponin T Baselin e 13 ng/L ng/L (0-15) Troponin T 120 Min [place] Troponin T Total Protein 6.6 g/dL g/dL (6.6-8.7) Albumin 3.7 g/dL g/dL (3.5-5.2) Globulin 2.9 g/dL g/dL (1.3-4.6) 06/12/21 10:20 WBC RBC Hgb Hct MCV MCH MCHC RDW Plt Count MPV Neut % (Auto) Lymph % (Auto) [place] % (Auto) Eos % (Auto) Baso % (Auto) Neut # (Auto) Lymph # (Auto) [place] # (Auto) Eos # (Auto) Baso # (Auto) Nucleated RBC % (a uto) Nucleated RBCs # Sodium Potassium Chloride Carbon Dioxide Anion Gap BUN Creatinine GFR Calculation Glucose Calculated Osmolal ity Calcium Total Bilirubin AST ALT Alkaline Phosphata se Troponin T Baselin e Troponin T 120 Min [place] 12.24 ng/L ng/L (0-15) Delta Troponin T -0.76 ABS# L ABS# (0-10) Total Protein Albumin Globulin Discharge Plan Discharge Patient Disposition: Admitted As Inpatient Admit Provider: Rex Ceron Clinical Impression: Chest pain, ASHD (arteriosclerotic heart disease), HTN (hypertension), COPD (chronic obstructive pulmonary disease), Diabetes Condition: Stable Discharge Diet: Cardiac Discharge Activity: Increase activity as tolerated Coding Level of Care Code 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
[2021-06-12 08:21] LABS: Basophils # 0.1 10^3/uL (0.0-0.1); Basophils % 0.9 %; Eosinophils % 9.5 %; Hemoglobin 16.5 g/dL (11.7-16.6); Lymphocytes # 4.2 10^3/uL (0.8-4.8); Lymphocytes % 41.3 %; Mean Corpuscular Hemoglobin 30.7 pg (28.0-34.0); Mean Corpuscular Volume 93.1 fl (80-94); Mean Platelet Volume 9.8 fL (7.4-10.4); Monocytes # 0.9 10^3/uL (0.2-0.9); Monocytes % 8.9 %; Neutrophils # 3.99 10^3/uL (1.8-7.7); Neutrophils % 39.1 %; Nucleated Red Blood Cells % 0 %; Platelet Count 179 10^3/cmm (130-400); Red Blood Count 5.37 10^6/uL (4.1-5.3); Red Cell Distribution Width 13.2 % (12.1-15.1); White Blood Count 10.2 10^3/uL (4.0-10.0)
[2021-06-12 08:38] LABS: Troponin(5th) Baseline 13 ng/L (0-15)
[2021-06-12] MEDS: morphine 4 mg/mL SDV 1 mL IVP (08:39)
[2021-06-12] MEDS: nitroglycerin drip 50 MG/250 ML PREMIX IV (08:40)
[2021-06-12 09:01] LABS: Alanine Aminotransferase 29 U/L (0-41); Albumin Level 3.7 g/dL (3.5-5.2); Alkaline Phosphatase 72 IU/L (40-130); Anion Gap 15.8 (5-19); Aspartate Amino Transferase 24 U/L (0-40); Blood Urea Nitrogen 10 mg/dL (8-23); Calcium 8.9 mg/dL (8.5-10.5); Carbon Dioxide 24 mmol/L (22-29); Chloride 104 mmol/L (98-107); Globulin 2.9 g/dL (1.3-4.6); Glucose 92 mg/dL (65-115); Osmolality Calculated 289 mOsm/kg (285-295); Potassium 3.8 mmol/L (3.5-5.1); Sodium 140 mmol/L (136-145); Total Bilirubin 0.3 mg/dL (0.15-1.2); Total Protein 6.6 g/dL (6.6-8.7)
--- NOTE | 2021-06-12 10:05 | ECG_ITS ---
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 Measurements Intervals [place] Rate: 62 P: 65 AR: 202 QRS: 57 QRSD: 112 T: 73 QT: 452 QTc: 461 Interpretive Statements SINUS RHYTHM ST changes in inferior leads, likely early repolarization compared to ECG 06/12/2021 08:20:21 intraventricular conduction delay no longer present Electronically Signed On 06-12-2021 21:50:37 CDT by Uma Patel M.D. [id number]
[2021-06-12 10:45] LABS: Troponin 5 2HR 12.24 ng/L (0-15)
[2021-06-12 10:46] LABS: Troponin 5 2HR Delta -0.76 ABS# (0-10)
[2021-06-12] MEDS: clopidogrel 300 mg Tablet 600 MG PO (10:48)
[2021-06-12] MEDS: nitroglycerin 1 gm/inch oint Pkt 1 INCH TOPICAL ×3 (10:49→20:01)
[2021-06-12] MEDS: LORazepam 1 mg Tablet PO (10:49)
[2021-06-12] MEDS: isosorbide mononitrate ER 30 mg Tablet PO (10:49)
[2021-06-12] MEDS: pregabalin 75 mg Capsule PO (10:49)
--- NOTE | 2021-06-12 12:26 | PC.NURSE ---
Received patient from ER. Patient is alert and oriented. Patient has been oriented to room and call breaux use. Pt is not having any pain at this time. Nurse will continue to monitor.
--- NOTE | 2021-06-12 13:44 | PM.HP ---
Providers/Chief Complaint Admitting Physician: Rex Ceron MD Primary Care Provider: Bishop Hall MD Chief Complaint: CHEST PAIN History of Present Illness Jose Perkins is a 76 year old male who presents to the hospital with complaints of chest discomfort. He reports this started around 3 AM in the morning. He noticed his blood pressure was elevated then as well. Left-sided, ache, associated with some nausea arm numbness. During my visit with him he reported it had for the most part gone away. He denies any recent episodes of chest discomfort although he relates coronary disease history with last angiogram and perhaps stent placement in 2011. He reports he took nitroglycerin when the pain occurred as well as his blood pressure medicine early. This improved some but was still persistent so he took another nitroglycerin and came in. He denied any nausea or vomiting. He has felt a little short of breath for several days. No diarrhea, history of Covid, fever, significant cough. He has been vaccinated for Covid fully with his second vaccine shot 3 months ago. Review of Systems General: Reports: 10 or more systems reviewed and unremarkable except in HPI and below Const: Denies: fever(s) or chills Eyes: Denies: change in vision ENMT: Denies: throat pain Card: Reports: chest pain Resp: Reports: dyspnea; Denies: productive cough or non-productive cough GI: Reports: heartburn; Denies: abdominal pain, coffee ground emesis, hematochezia or melena : Denies: flank pain Musc: Denies: neck pain Skin/Breast: Denies: rash Neuro: Denies: headache(s) Psych: Reports: anxiety, depression and other (Has had stress lately moving out of his ex-'s house. No suicidal ideat) Endo: Denies: polyuria Bruno/Lymph: Denies: easy bruising All/Imm: Denies: urticaria Medications/Allergies Home Medications Medication Instructions Recorded Confirmed Last Taken Type albuterol sulfate 90 mcg/actuation 2 puff INHALATION Q6H PRN 12/02/19 06/12/21 08/14/20 History aerosol inhaler clopidogrel 75 mg tablet 75 mg PO DAILY@08 12/02/19 06/12/21 06/09/21 History nitroglycerin 0.4 mg sublingual 0.4 mg SUBLINGUAL Q5M PRN 12/02/19 06/12/21 06/12/21 History tablet gabapentin 300 mg capsule 300 mg PO TID cap 06/14/20 06/12/21 06/12/21 History Focus Factor 1 tab PO DAILY 06/12/21 06/12/21 06/12/21 History budesonide-formoterol [Symbicort] 2 puff INHALATION BID 06/12/21 06/12/21 06/12/21 History cholecalciferol (vitamin D3) 10 mcg PO DAILY 06/12/21 06/12/21 06/11/21 History [Vitamin D3] diltiazem HCl 120 mg PO DAILY 06/12/21 06/12/21 06/12/21 History isosorbide mononitrate 30 mg PO DAILY 06/12/21 06/12/21 06/12/21 History lorazepam 0.5 mg PO DAILY PRN MDD see 06/12/21 06/12/21 Unknown History pharmacy comment mirtazapine 7.5 mg PO BEDTIME 06/12/21 06/12/21 06/11/21 History sertraline [Zoloft] 25 mg PO DAILY 06/12/21 06/12/21 06/11/21 History tamsulosin [Flomax] 0.4 mg PO DAILY 06/12/21 06/12/21 06/12/21 History tramadol 50 mg PO Q8H PRN 06/12/21 06/12/21 Unknown History Allergies Allergy/AdvReac Type Severity Reaction Status Date / Time Penicillins Allergy Unknown Unknown Verified 04/22/21 17:26 tirofiban Allergy Unknown Unknown Verified 04/22/21 17:26 [From Aggrastat Concentrate] PFSH Acute PFSH: Medical History (Updated 06/12/21 @ 13:54 by Rex Ceron MD) ASHD (arteriosclerotic heart disease) BPH (benign prostatic hyperplasia) COPD (chronic obstructive pulmonary disease) CVA (cerebral vascular accident) Depression Diabetes GERD (gastroesophageal reflux disease) HTN (hypertension) Hyperlipidemia Peripheral neuropathy Tobacco abuse Surgical History (Updated 06/12/21 @ 13:48 by Rex Ceron MD) History of appendectomy S/P cataract extraction S/P tonsillectomy Family History Father Cancer Mother Diabetes Social History Smoking and tobacco status: current every day smoker cigarettes Packs smoked per day: 0.25 Alcohol intake: former Vitals/I&O/Wt Last Vital Signs Temp 97.6 F 06/12/21 08:06 Pulse 59 L 06/12/21 12:00 Resp 13 06/12/21 12:00 BP 188/96 06/12/21 12:00 Pulse Ox 94 06/12/21 12:00 06/11/21 06/12/21 06/12/21 22:59 06:59 14:59 Intake Total 3.9 / 3.9 Balance 3.9 / 3.9 Weight last 48 hrs Weight 88.451 kg Physical Exam Narrative: EXAM NARRATIVE: General exam no distress HEENT: Pupils equally round. Oropharynx clear. Neck is supple no lymphadenopathy or thyromegaly Cardiovascular regular rate and rhythm without murmur Lungs few faint expiratory wheezes. No crackles Abdomen is soft with positive bowel sounds. No obvious hepatosplenomegaly Extremities no cyanosis clubbing or edema, cap refill brisk Skin no rash Neuro no obvious focal deficits Data : 06/12/21 08:16 06/12/21 08:16 Other data: Calcium 8.9 LFTs normal Troponin baseline 13 with repeat of 12 Recent TSH normal EKG normal sinus rhythm intraventricular conduction delay no significant ST-T wave changes Chest x-ray negative A&P Assessment and plan (1) Chest pain: Troponin negative Check echocardiogram TSH recently checked and normal Continue Plavix, diltiazem, Imdur Wean off nitroglycerin drip, nitroglycerin paste If chest pain resolved nuclear stress test tomorrow. If chest discomfort continues consider cardiology consultation It appears he was intolerant of statins in the past as Zetia was being used by cardiology. We will need to readdress with the patient. Status: Acute (2) Tobacco abuse: Encourage abstinence Status: Acute (3) ASHD (arteriosclerotic heart disease): Plavix, aspirin, nitrates will be continued. Status: Acute (4) HTN (hypertension): Blood pressure significantly high. Add JANEE inhibitor. Status: Acute Qualifiers: Hypertension type: essential hypertension Qualified Code(s): I10 - Essential (primary) hypertension (5) COPD (chronic obstructive pulmonary disease): Nebulized treatments every 6 hours Reevaluate wheezing. If still present add prednisone. Status: Acute Additional A&P Information History of GERD. Add Protonix. Multiple other medical problems as outlined in past medical history Full code Attestations Medical Necessity Statement*: Will need less than 2 midnight stay for evaluation of chest discomfort. 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
--- NOTE | 2021-06-12 13:51 | USCV_ITS ---
Jose Perkins Age: 76 Gender: M : 1945 Exam Date: 06/12/2021 15:18 Ordering Phys: Rex Ceron MD Technologist: Exam Location: [facility] [place] Indication: BP: 172 / 88 HR: 61 Rhythm: Sinus Technical Quality: Suboptimal MEASUREMENTS (Male / Female) Normal Values 2D ECHO LV Diastolic Diameter PLAX 2.9 cm 4.2 - 5.9 / 3.9 - 5.3 cm LV Systolic Diameter PLAX 1.8 cm IVS Diastolic Thickness 0.8 cm 0.6 - 1.0 / 0.6 - 0.9 cm IVS Systolic Thickness 1.2 cm LVPW Diastolic Thickness 1.1 cm 0.6 - 1.0 / 0.6 - 0.9 cm LVPW Systolic Thickness 1.2 cm LVOT Diameter 2.0 cm LV Ejection Fraction 2D Teich 71.5 % LV Ejection Fraction MOD 2C 54.3 % LV Ejection Fraction 2C AL 54.3 % LA Diameter 2.6 cm LA Width 4.4 cm LA Height 5.0 cm RA Width 4.1 cm RA Height 4.9 cm DOPPLER AV Peak Velocity 171.7 cm/s LVOT Peak Velocity 102.0 cm/s AV Area Cont Eq vti 2.0 cm squared AV Area Cont Eq pk 1.9 cm squared MV Area PHT 5.0 cm squared Mitral E to A Ratio 0.7 MV E' Velocity 63.0 cm/s Mitral E to LV E' Septal Ratio 11.6 TR Peak Velocity 148.7 cm/s TR Peak Gradient 8.8 mmHg TV Peak E Velocity 94.0 cm/s Right Atrial Pressure 3.0 mmHg Pulmonary Artery Systolic Pressu 11.8 mmHg FINDINGS Left Ventricle Normal left ventricular size, systolic function and increased wall thickness, with no regional wall motion abnormalities. Left ventricular ejection fraction is estimated at 75 %. Grade I diastolic dysfunction (abnormal relaxation filling pattern), normal to mildly elevated filling pressures. Right Ventricle Normal right ventricular size and systolic function. Right ventricular systolic pressure 12 mmHg. Right Atrium Normal right atrial size. Left Atrium Mildly increased left atrial size. Mitral Valve Mild mitral annular calcification. Structurally normal mitral valve. No mitral valve stenosis. No mitral valve regurgitation. Aortic Valve Aortic valve not well visualized. No aortic valve stenosis. No aortic valve regurgitation. Tricuspid Valve Tricuspid valve not well visualized. Pulmonic Valve Pulmonic valve not well visualized. Pericardium No pericardial effusion. Aorta Aorta not well visualized. CONCLUSIONS 1. This is a technically difficult study. Ultrasound enhancing agent Optison was used per protocol. 2. Normal left ventricular size, systolic function and increased wall thickness, with no regional wall motion abnormalities. Left ventricular ejection fraction is estimated at 75 %. Grade I diastolic dysfunction (abnormal relaxation filling pattern), normal to mildly elevated filling pressures. 3. Normal right ventricular size and systolic function. 4. Valves grossly appear normal. 5. No prior similar studies to compare. Bria Figueroa MD (Electronically Signed) Final Date: 12 June 2021 17:54 S
--- NOTE | 2021-06-12 13:52 | PC.RESP ---
Sent smoking cessation and COPD information in mail
--- NOTE | 2021-06-12 14:09 | ECG_ITS ---
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 The perfusion scan will be documented separately. DATA: Baseline heart rate was 78 beats per minute. Baseline blood pressure was 166/93 millimeters of mercury. Target heart rate was 142. Maximum heart rate achieved was 101. which was 71 % of the predicted target heart rate. Maximum blood pressure was 173/93 millimeters of mercury. The reason for ending the test was completion of the protocol. The patient did not experience any symptoms. ELECTROCARDIOGRAM: BASELINE: Sinus rhythm. Normal axis. Otherwise, no ST-T changes suggestive of ischemia noted. No arrhythmia noted. EXERCISE: After Lexiscan injection, no ST-T changes suggestive of ischemic noted. No arrhythmia noted. CONCLUSION: Please note due to baseline abnormality of the EKG specificity and sensitivity of the EKG portion of LexiScan MIBI stress test will be low 1. EKG not suggestive of ischemia 2. Lexiscan injection unremarkable. 3. Perfusion scan will be documented separately. Electronically Signed On 08-02-2021 18:48:06 OPERATION RESEARCH ANALYST by MYKE LAU [id number]
[2021-06-12] MEDS: aspirin 325 mg EC Tablet PO (14:24)
[2021-06-12] MEDS: lisinopril 10 mg Tablet PO (14:24)
[2021-06-12] MEDS: LORazepam 0.5 mg Tablet PO (14:24)
[2021-06-12] MEDS: enoxaparin 40 mg/0.4 mL Syringe SUBCUT (14:24)
[2021-06-12] MEDS: gabapentin 300 mg Capsule PO ×2 (14:24→20:01)
[2021-06-12 14:52] LABS: Troponin 5 6HR 12.35 ng/L (0-15)
[2021-06-12] MEDS: ipratropium-albuterol 3 mL Neb INHALATION ×2 (14:52→21:19)
--- NOTE | 2021-06-12 14:55 | PC.RESP ---
RT Shift Note Frequent safety and respiratory rounds continue. Orders completed as indicated. Patient monitored pre and post treatments throughout shift. Patient [Did] tolerate treatments appropriately. Condition [.DidNotChange]. Patient and/or vendor representatives educated on respiratory treatment and medications. Patient and/or vendor representatives [verbalized understanding]. Will continue to monitor patient progress.
[2021-06-12 14:59] LABS: Troponin 5 6HR Delta -0.65 ng/L (0-12)
[2021-06-12] MEDS: perflutren protein-a microsphr 0.22 mg/mL SDV 3 mL IV (15:55)
--- NOTE | 2021-06-12 19:13 | PC.NURSE ---
Received report from DANII Hair. Patient sitting on edge of bed. Disconnected from telemetry so patient could get up to bathroom. Ambulates without difficulty. Noted some increased SOB with exertion. Patient reports having smoked cigarettes since he was [age] years old. Discussed plan for Lexiscan stress test for tomorrow. Patient verbalized complete understanding. Telemetry connected. VS as documented. Patient denies pain but does describe chest tightness . Denies other needs. No distress observed. Will continue to monitor.
[2021-06-12] MEDS: TRAMadol 50 mg Tablet PO (20:00)
[2021-06-12] MEDS: mirtazapine 15 mg Tablet 7.5 MG PO (20:01)
[2021-06-13] VITALS (10 sets, daily range): BP systolic 157–181; BP diastolic 89–109; PULSE 64–75; RESP 16–22; TEMP 36.7–36.8; O2SAT 88–96
[2021-06-13] MEDS: nitroglycerin 1 gm/inch oint Pkt 1 INCH TOPICAL ×3 (02:44→15:10)
[2021-06-13 05:11] LABS: Basophils # 0.1 10^3/uL (0.0-0.1); Basophils % 0.8 %; Eosinophils # 0.9 10^3/uL (0.0-0.8); Eosinophils % 8.6 %; Hematocrit 47.6 % (42.0-52.0); Hemoglobin 15.7 g/dL (11.7-16.6); Lymphocytes # 3.2 10^3/uL (0.8-4.8); Lymphocytes % 31.5 %; Mean Corpuscular Hemoglobin 31.2 pg (28.0-34.0); Mean Corpuscular Volume 94.4 fl (80-94); Mean Platelet Volume 9.9 fL (7.4-10.4); Monocytes # 0.8 10^3/uL (0.2-0.9); Monocytes % 8.1 %; Neutrophils # 5.16 10^3/uL (1.8-7.7); Neutrophils % 50.7 %; Nucleated Red Blood Cells % 0 %; Platelet Count 178 10^3/cmm (130-400); Red Blood Count 5.04 10^6/uL (4.1-5.3); Red Cell Distribution Width 13.3 % (12.1-15.1); White Blood Count 10.2 10^3/uL (4.0-10.0)
[2021-06-13 05:37] LABS: Anion Gap 10.9 (5-19); Blood Urea Nitrogen 12 mg/dL (8-23); Calcium 8.5 mg/dL (8.5-10.5); Carbon Dioxide 28 mmol/L (22-29); Chloride 108 mmol/L (98-107); Glucose 85 mg/dL (65-115); Osmolality Calculated 295 mOsm/kg (285-295); Potassium 3.9 mmol/L (3.5-5.1); Sodium 143 mmol/L (136-145)
--- NOTE | 2021-06-13 06:10 | PC.NURSE ---
Shift Note Frequent safety and comfort rounds continue. Orders and/or nursing care completed as indicated. Patient monitored for response to intervention and treatment(s). Education provided includes Lexiscan stress test. Patient verbalized understanding reports have treadmill test ~10 years ago. Patient denies pain this morning. Water provided in anticipation of stress test. No distress observed. Will continue to monitor.
--- NOTE | 2021-06-13 08:00 | NMCV_ITS ---
NM robert perf SPECT r/s* [id number] Jose Perkins Age: 76 Gender: M : 1945 Exam Date: 06/13/2021 Ordering Phys: Rex Ceron MD Technologist: LAURYN Mason Exam Location: [facility] Indications: CHEST PAIN STRESS TEST Please see separate stress test report in [facility] for full findings IMAGE PROTOCOL Rest/Stress 1 Lexiscan Day Radiopharmaceutical Dose (mCi) Administration Site Administered by Rest: Tc-99m 11.0 IV Mag Quintero SUPERVISOR HARVESTING Sestamibi Stress:Tc-99m 33.0 IV Mag Quintero, SUPERVISOR HARVESTING Sestamibi Rest: 13-Jun-2021 60 Discovery 630 Stress: 13-Jun-2021 30 Discovery 630 0.4mg Lexiscan. Supine position only as patient was unable to lay prone. SPECT RESULTS Technical Quality: Excellent Raw Data Analysis: Normal Image Corrections: No attenuation or motion correction applied Summed Stress Score: 1 Summed Rest Score: 0 Summed Difference Score: 1 PERFUSION FINDINGS Medium-sized area of fixed perfusion defect noted in basal to mid inferior and inferoseptal wall suggestive of old myocardial infarction versus scarring. 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 This study is negative for ischemia. EKG segment will be documented separately Love Lynn MD (Electronically Signed) Final Date: 13 June 2021 14:00 S
[2021-06-13] MEDS: TRAMadol 50 mg Tablet PO ×2 (08:03→15:18)
[2021-06-13] MEDS: aspirin 325 mg EC Tablet PO (08:11)
[2021-06-13] MEDS: dilTIAZem ER (24HR) 120 mg Capsule PO (08:11)
[2021-06-13] MEDS: gabapentin 300 mg Capsule PO ×2 (08:12→15:10)
[2021-06-13] MEDS: clopidogrel 75 mg Tablet PO (08:12)
[2021-06-13] MEDS: pantoprazole DR 40 mg Tablet PO (08:12)
[2021-06-13] MEDS: tamsulosin 0.4 mg Capsule PO (08:12)
[2021-06-13] MEDS: lisinopril 10 mg Tablet PO (08:12)
[2021-06-13] MEDS: sertraline 50 mg Tablet 25 MG PO (08:14)
[2021-06-13] MEDS: ipratropium-albuterol 3 mL Neb INHALATION (08:40)
[2021-06-13] MEDS: LORazepam 0.5 mg Tablet PO (09:04)
[2021-06-13] MEDS: isosorbide mononitrate ER 30 mg Tablet PO (09:05)
--- NOTE | 2021-06-13 09:07 | USCV_ITS ---
Jose Perkins Age: 76 Gender: M : 1945 Exam Date: 06/13/2021 14:08 Ordering Phys: Rex Ceron MD Technologist: Shahana Sewell Exam Location: [facility] [place] Indication: Pain and swelling HISTORY: Lower extremity pain. Lower extremity swelling. PROCEDURES: Venous duplex imaging was performed in bilateral lower extremities. The following venous structures were evaluated: common femoral vein, profunda vein, proximal portion of the greater saphenous vein, superficial femoral vein, and the popliteal vein. In addition, the posterior tibial and peroneal trunk were evaluated. FINDINGS: Normal 2-D Doppler and augmentation and compressibility throughout the lower extremity venous structures. Additional imaging through the proximal calf veins also reveals no thrombus. Limited evaluation of the greater saphenous vein is patent with no thrombus. CONCLUSIONS No DVT bilateral lower extremities. Dr. Maya Hylton DO (Electronically Signed) Final Date: 13 June 2021 15:07 S
--- NOTE | 2021-06-13 10:01 | PC.NURSE ---
off unit to nuc med for lexiscan stress test
[2021-06-13 10:02] LABS: NT Pro B Type Natriuretic Pept 216 pg/mL (0-450)
[2021-06-13] MEDS: regadenoson 0.4 Mg/5 ml Syringe IVP (10:32)
--- NOTE | 2021-06-13 11:08 | PC.CHAP ---
Pastoral Care Encounter/Spiritual Assessment Type of Contact [x] Declined quality control clerk visit [] Patient/Family/Request visit [] Outpatient visit [] Follow-up visit [] Physician referral [] Code/Alert [] Routine visit [] Staff referral [] Actively dying [] Patient sleeping [] Family support [] [] Out of room [] Palliative care [] [] Receiving care in room [] Pre-surgical visit [] Trauma [] Long length of stay [] ICU visit [] Other: Relational/Emotional Strength [] Patient feels connected with others/family/visitors/staff [] Distress [] Loneliness/isolation [] Abandonment Spirituality of Patient [] Person of Leny [] Attends Congregational of their [place] [] Believes in Prayer [] Reads Bible or Faith materials [] There are Spiritual issues to be addressed Primary Health Organisation Manager Interventions [] Prayer [] Active listening [] Non-anxious presence [] Spiritual/emotional support [] Crisis/trauma care [] Spiritual counseling [] Bereavement support [] Provided bereavement packet [] Provided Bible/devotional materials [] Provided toy/stuffed animal, coloring book to patient or family member [] Provided Communion [] Anointing/[place] [] Salvation [] Completed spiritual assessment [] Other: Impact on Illness or Injury [] Angry [] Fearful [] Anxious [] Often cries [] Exhaustion [] Unable to work [] Unable to attend gnosticist [] Unable to walk/stand [] Unable to read [] Unable to drive [] Unable to eat/drink [] Unable to sleep [] Unable to be with family [] Patient intubated [] Other: Summary Declined quality control clerk visit Time spent with patient 5 mins
[2021-06-13 13:32] LABS: D Dimer 1.94 ug/mIFEU (0-0.59)
--- NOTE | 2021-06-13 13:33 | CT_ITS ---
WS: [id number] CT CHEST ANGIOGRAPHY WITH REFORMATS HISTORY: elevated dimer TECHNIQUE: Contiguous axial images are obtained through the chest during arterial injection of intrav enous contrast. Images are reconstructed to evaluate the pulmonary arteries. MIP imaging also reviewe d. All CT scans at [facility] use at least one of these dose optimization techniques: automat ed exposure control; mA and/or kV adjustment per patient size (includes targeted exams where dose is matched to clinical indication); or iterative reconstruction. CONTRAST: Omnipaque 350; 95 mL IV. DLP: 597.99 mGy.cm COMPARISON: 08/26/2014 Good opacification of the pulmonary arteries. No pulmonary embolism. Pulmonary artery size is equal t o the aorta. Moderate atherosclerotic plaque with intimal thickening and calcification throughout the aorta. No aneurysm. Very mild enlargement of the heart. No pericardial or pleural effusions. No enla rged mediastinal or hilar lymph nodes. Moderate centrilobular emphysema and paraseptal emphysema. No mass or pneumonia. Stable lobulated 10 mm nodule in the medial RIGHT lower lobe has not significantly changed since 2013. No chest wall abnormalities. Prior cholecystectomy. Mild hepatic steatosis. Pancreatic atrophy. No de structive bone lesions. Moderate spondylitic changes within the thoracic spine. No fracture. CT/CT angio chest PE protcl [id number] IMPRESSION: 1. No pulmonary embolism. 2. Chronic emphysema. 3. Long-term stability 10 mm lobulated nodule medial RIGHT lower lobe. 4. Moderate atherosclerosis aorta with no aneurysm. 5. Prior cholecystectomy.
[2021-06-13] MEDS: acetaminophen 325 mg Tablet 650 MG PO (13:42)
--- NOTE | 2021-06-13 13:56 | PC.NURSE ---
off unit to ct scan
[2021-06-13] MEDS: iohexol 350 mg/mL 100 mL Btl IV (14:02)
--- NOTE | 2021-06-13 14:27 | PM.DCS ---
Discharge Providers Date of Admission: 06/12/21 10:35 Date of Discharge: June 13, 2021 Attending Provider at Admission: Rex Ceron MD Attending Provider at Discharge: Rex Ceron MD Primary Care Provider: Bishop Hall MD Diagnoses at Discharge Discharge Diagnosis (1) Chest pain: Status: Acute (2) Tobacco abuse: Status: Acute (3) ASHD (arteriosclerotic heart disease): Status: Acute (4) HTN (hypertension): Status: Acute Qualifiers: Hypertension type: essential hypertension Qualified Code(s): I10 - Essential (primary) hypertension (5) COPD (chronic obstructive pulmonary disease): Status: Acute Reason for Visit Reason for Visit: CHEST PAIN Hospital Course Hospital Course Jose is a 76-year-old white male who presented with atypical chest discomfort. He had a distant history of coronary artery disease and intervention. Troponin was negative, with negative delta at 2 and 6 hours. EKG demonstrated no evidence of ischemia. He was monitored overnight and a nuclear stress test was performed the next day which was negative for reversible ischemia. Old myocardial infarction was noted. On day of discharge patient had also complained of some left calf pain, and some mild shortness of breath(patient with long history of COPD and tobacco use). Secondary to this a venous duplex, and dimer were ordered. D-dimer was elevated. Venous duplex demonstrated no obvious DVT. CTA was performed demonstrating no pulmonary embolism, stable pulmonary nodule. Patient's chest discomfort had gone away during his hospital stay, he was on room air, and with negative studies he was discharged home for further follow-up as an outpatient. Medication changes did occur in the hospital secondary to hypertension. This included addition of lisinopril, and increase in Imdur. He will follow-up with his primary care provider as well as cardiology. Physical Exam Narrative: EXAM NARRATIVE: General exam no distress Neck is supple Cardiovascular regular rate and rhythm without murmur Lungs diminished breath sounds bilaterally but clear Abdomen is soft, positive bowel sounds Extremities no cyanosis clubbing or edema Discharge Data Data Completed and Pending: Completed Studies During Hospitalization Category Date Time Status CT angio chest PE protcl [id number] Rout ine Cat Scan 06/13/21 13:33 Completed Sestamibi Stress Test Request Routi ne Exams 06/12/21 14:09 Draft XR chest 1V francois ble [id number] Stat Exams 06/12/21 08:05 Completed NM robert perf SPECT r/s* [id number] Routin e Nuc Med 06/13/21 08:00 Completed CV. echo wo/w con trast [id number] Routin e Ultrasound 06/12/21 13:51 Completed Pending at discharge Category [place] [id number] Routin e Ultrasound 06/13/21 09:07 Taken Labs from last 24 hours 06/13/21 06/13/21 06/13/21 12:34 04:20 04:20 WBC RBC Hgb Hct MCV MCH MCHC RDW Plt Count MPV Neut % (Auto) Lymph % (Auto) [place] % (Auto) Eos % (Auto) Baso % (Auto) Neut # (Auto) Lymph # (Auto) [place] # (Auto) Eos # (Auto) Baso # (Auto) Nucleated RBC % (a uto) Nucleated RBCs # D-Dimer 1.94 H Sodium 143 Potassium 3.9 Chloride 108 H Carbon Dioxide 28 Anion Gap 10.9 BUN 12 Creatinine 0.8 GFR Calculation Not Reportable Glucose 85 Calculated Osmolal ity 295 Calcium 8.5 Troponin T Hi Sens 6Hr Troponin T Hi Sens 6Hr Delta NT-Pro-B Natriuret Pep 216 06/13/21 06/12/21 04:20 14:16 WBC 10.2 H RBC 5.04 Hgb 15.7 Hct 47.6 MCV 94.4 H MCH 31.2 MCHC 33.0 RDW 13.3 Plt Count 178 MPV 9.9 Neut % (Auto) 50.7 Lymph % (Auto) 31.5 [place] % (Auto) 8.1 Eos % (Auto) 8.6 Baso % (Auto) 0.8 Neut # (Auto) 5.16 Lymph # (Auto) 3.2 [place] # (Auto) 0.8 Eos # (Auto) 0.9 H Baso # (Auto) 0.1 Nucleated RBC % (a uto) 0 Nucleated RBCs # 0.0 D-Dimer Sodium Potassium Chloride Carbon Dioxide Anion Gap BUN Creatinine GFR Calculation Glucose Calculated Osmolal ity Calcium Troponin T Hi Sens 6Hr 12.35 Troponin T Hi Sens 6Hr Delta -0.65 L NT-Pro-B Natriuret Pep Vitals: Last Vital Signs Temp 98.1 F 06/13/21 07:19 Pulse 69 06/13/21 12:00 Resp 16 06/13/21 08:40 BP 159/89 06/13/21 12:00 Pulse Ox 91 06/13/21 12:00 Discharge Plan Discharge Patient Disposition: Home Condition: Stable Prescriptions: New lisinopril 10 mg Tablet 10 mg PO DAILY Qty: 30 RF: 0 pantoprazole 40 mg Tablet,Delayed Release (Dr/Ec) 40 mg PO DAILY Qty: 30 RF: 0 Continued clopidogrel 75 mg tablet 75 mg PO DAILY@08 RF: 0 albuterol sulfate [ProAir HFA] 90 mcg/actuation HFA aerosol inhaler 2 puff INHALATION Q6H PRN (Reason: Bronchodilation) RF: 0 nitroglycerin [Nitrostat] 0.4 mg tablet, sublingual 0.4 mg SUBLINGUAL Q5M PRN (Reason: Chest Pain) RF: 0 gabapentin 300 mg capsule 300 mg PO TID RF: 0 diltiazem HCl 120 mg capsule,extended release 24hr 120 mg PO DAILY RF: 0 tramadol 50 mg Tablet 50 mg PO Q8H PRN (Reason: Pain) RF: 0 lorazepam 0.5 mg Tablet 0.5 mg PO DAILY MDD see pharmacy comment PRN (Reason: Anxiety) RF: 0 Flomax 0.4 mg Capsule 0.4 mg PO DAILY RF: 0 Zoloft 25 mg Tablet 25 mg PO DAILY RF: 0 Vitamin D3 10 mcg (400 unit) Capsule 10 mcg PO DAILY RF: 0 mirtazapine 7.5 mg Tablet 7.5 mg PO BEDTIME RF: 0 Symbicort 160-4.5 mcg/actuation HFA aerosol inhaler 2 puff INHALATION BID RF: 0 Focus Factor 1 tab PO DAILY RF: 0 Changed isosorbide mononitrate 30 mg tablet extended release 24 hr 60 mg PO DAILY Qty: 60 RF: 0 Discharge Orders: Discharge Order (Routine); Ordered 06/13/21 Ordered By: Rex Ceron Referrals: Bishop Hall MD [Primary Care Provider] - 4-7 days Love Lynn MD [Physician] - 2 weeks Discharge Diet: Cardiac Discharge Activity: Increase activity as tolerated Patient Instructions: Opioid Safety Activity Restrictions/Additional Instructions: Stop smoking Medicine changes as noted Keep follow-up with primary care provider and cardiology as noted. Discharge Attestations Time Spent in Discharge Care*: greater than 30 min Quality Metrics Clinical Quality Measures During this hospital stay, did patient experience: None Coding Level of Care Code Acute Chg FW DC note Diagnoses Chest pain R07.9 Tobacco abuse Z72.0 ASHD (arteriosclerotic heart disease) I25.10 HTN (hypertension) I10 Hypertension type: essential hypertension COPD (chronic obstructive pulmonary disease) J44.9
--- NOTE | 2021-06-13 16:46 | PC.NURSE ---
Discharge Note Patient discharged to home via bed accompanied by sister. Discharge instructions reviewed with patient and/or sales and merchandising representative. Pt stated he does not drive so the time of appointment already been set-up for him w/ his PCP does not work. Instructed pt to call his pcp clinic tomorrow and get it changed it in the afternoon. Pt verbalizes understanding. Mobile pharmacy medications and/or prescriptions provided. Educated pt on his new meds actions, dosing and timing. Advice pt to quit smoking and find ways to reduce stress. Belongings/home medications returned.
--- NOTE | 2021-06-17 08:19 | PC.SOCIAL ---
multiple calls made to reach patient for discharge follow up call. reached patient this morning. he was on his way for his pcp follow up. patient reports he picked up his new prescriptions from the pharmacy and he is taking as prescribed. patient reports when he was discharge from [facility], he didn't get home with is anxiety pill or sleeping pill. patient unsure of the name of the sleeping pill. medical writer found in home medication list that pt takes lorazepam and mirtazapine, Plate Furnace Operator will attempt to find medications. Patient is aware of change in dose of isosorbide. Discussed smoking cessation. patient given follow up date and time to see Diamond Roberts.
--- NOTE | 2021-06-17 08:49 | PC.SOCIAL ---
sql report writer went to [facility] to find patients medications, unable to locate. Also called pharmacy and security and they didn't have medications. will notify patient.
== END 2021-06-13 16:42 | disposition home or self-care (01) ==
LOC: ER 09:26 → CSU 10:46
PROVIDERS: Admitting Provider Internal Medicine; Emergency Provider Family Medicine; PCP Family Medicine; Visit Provider Internal Medicine
DX: R07.89 Other chest pain (principal); I25.10 Atherosclerotic heart disease of native coronary artery without angina pectoris; I10 Essential (primary) hypertension; J44.9 Chronic obstructive pulmonary disease, unspecified; F17.210 Nicotine dependence, cigarettes, uncomplicated; M79.605 Pain in left leg; M79.604 Pain in right leg; M79.89 Other specified soft tissue disorders; N40.0 Benign prostatic hyperplasia without lower urinary tract symptoms; Z86.73 Personal history of transient ischemic attack (TIA), and cerebral infarction without residual deficits; F32.9 Major depressive disorder, single episode, unspecified; K21.9 Gastro-esophageal reflux disease without esophagitis; E78.5 Hyperlipidemia, unspecified; E11.42 Type 2 diabetes mellitus with diabetic polyneuropathy; Z83.3 Family history of diabetes mellitus
CPT/HCPCS: 36415; 71045; 71275; 78452; 80048; 80053; 83880; 84484; 85025; 85378; 93005; 93017; 93970; 94640; 96365; 96372; 96375; 99285; A9500; C8929; G0378; J1650; J2270; J2785; J3490; Q9956; Q9967

== ENCOUNTER → 2021-09-24 09:59 | Outpatient (BNVA) | payer MEDICARE, SELFPAY | PROVIDERS: PCP Family Medicine; Visit Provider Student in an Organized Health Care Education/Training Program | DX: A53.9 Syphilis, unspecified (principal); Z11.3 Encounter for screening for infections with a predominantly sexual mode of transmission | CPT/HCPCS: 86592; 86705; 86706; 86709; 86780; 86803; 87340; 87806 ==

== ENCOUNTER 2021-11-23 16:36 | Emergency (ER) | payer MEDICARE, SELFPAY ==
[2021-11-23 16:37] VITALS: BMI 32.5
--- NOTE | 2021-11-23 16:54 | W.ED.CHESTPA ---
HPI - Chest Pain General: Chief Complaint: Chest Pain Stated Complaint: CHEST PAIN Time Seen by Provider: 11/23/21 16:36 Source: patient Mode of arrival: EMS Limitations: no limitations History of Present Illness: This patient comes to the emergency department via EMS from his home. He states that he got up about 330 this morning and experienced some chest pain symptoms. He states the chest pain was located in the center of his chest and seemed to radiate into his left arm at times. He states that he took his blood pressure noted it was elevated over the 200 number systolic and took a couple of his blood pressure medicines he does not recall which ones. He states he also took a couple of nitro. He states his blood pressure improved but he thinks he still continues to have chest pain which has gone on for most of the day. He states he did take his blood pressure subsequently and found that his blood pressure which previously had gone down was rising again and decided to call EMS. He has had a prior history of coronary artery disease has had stents placed in 2002 but none since then. He was admitted to this facility sometime ago and had a complete work-up and was told he was in good condition. He denies any ripping or tearing pain. He still smoking cigarettes. He lives alone. He denies any known exposure to infectious disease not any cough fever etc. He denies any nausea or vomiting associated with his pain. He has not had a recent cough etc. Patient received 324 mg of aspirin via EMS prior to arrival. MD complaint: chest pain Pertinent past history: coronary artery disease Timing of current episode: constant Onset: awoke with symptoms Pain location: left chest Pain radiation: left arm Relieving factors: nitroglycerin Associated symptoms: Deny abdominal pain, dyspnea, fever(s), nausea, palpitations, syncope or vomiting Review of Systems Const: Denies: fever(s), chills or body aches Eyes: Denies: change in vision ENMT: Denies: throat pain or odynophagia Card: Denies: palpitations, irregular heart rhythm, lightheadedness, syncope or pre-syncope Resp: Denies: dyspnea, productive cough or non-productive cough GI: Denies: abdominal pain, nausea or vomiting : Denies: flank pain, difficulty urinating or dysuria Musc: Denies: neck pain, back pain, extremity pain or extremity swelling Skin/Breast: Denies: rash Neuro: Denies: headache(s), numbness in extremities, weakness in extremities, dizziness or vertigo Endo: Denies: polyuria or polydipsia Bruno/Lymph: Reports: easy bruising; Denies: easy bleeding PFSH ED PFSH: Medical History ASHD (arteriosclerotic heart disease) BPH (benign prostatic hyperplasia) COPD (chronic obstructive pulmonary disease) CVA (cerebral vascular accident) Depression Diabetes GERD (gastroesophageal reflux disease) HTN (hypertension) Hyperlipidemia Peripheral neuropathy Tobacco abuse Surgical History History of appendectomy S/P cataract extraction S/P tonsillectomy Family History Father Cancer Mother Diabetes Social History Alcohol intake: former Physical Exam Narrative: EXAM NARRATIVE: Patient appears comfortable. He makes good eye contact speech is goal-directed. Const: COMMON NORMALS: no acute distress and patient oriented x3 GENERAL APPEARANCE: cooperative and comfortable NUTRITIONAL APPEARANCE: overweight HENMT: COMMON NORMALS: normocephalic, atraumatic, Normal nasal mucous membranes and turbinates present, moist oral mucous membranes and oropharynx normal HEAD & SCALP: normocephalic and atraumatic NOSE: Normal nasal mucous membranes and turbinates present Eye: COMMON NORMALS: Equal, round and reactive pupils present, EOMs intact bilaterally and no scleral icterus PUPIL: Yes Equal, round and reactive pupils present Neck/C-Spine: COMMON NORMALS: full ROM, no JVD and No carotid bruits Chest: COMMONS NORMALS: normal inspection of the chest and normal palpation of entire chest wall Resp: COMMON NORMALS: normal respiratory effort, No retractions, No use of accessory muscles and clear to auscultation bilaterally AUSCULTATION: clear to auscultation bilaterally Cardio: COMMON NORMALS: no JVD, regular rate, regular rhythm and No murmurs present (Cardio) RATE: regular rate RHYTHM: regular rhythm GI: COMMON NORMALS: Normal to inspection, nondistended, normoactive bowel sounds present, Soft to palpation, non-tender, no masses and no bruits PALPATION: Yes Soft to palpation : COMMON NORMALS: Yes no CVA tenderness BLADDER/KIDNEY EXAM: Yes no CVA tenderness Back/Pelvis: COMMON NORMALS: no CVA tenderness, thoracic and lumbar spine normal to inspection, no thoracic nor lumbar tenderness and thoraco-lumbar ROM normal Extremity: COMMON NORMALS: normal to inspection, full ROM, capillary refill normal, no joint enlargement, no calf tenderness and no pedal edema Neuro: COMMON NORMALS: patient oriented x3, moves all extremities, no focal motor deficits, no sensory deficits noted and gait normal Psych: COMMON NORMALS: mental status grossly normal, Normal thought process present, cooperative and speech normal SPEECH: Yes normal speech THOUGHT PROCESS: Normal thought process present Course Reevaluation(s): Reevaluation #1: Pressure is now 171/87. Patient subjectively feels much better. Will await a second troponin level and then review possible medication changes to control his blood pressure more effectively. Reevaluation #2: Patient's second troponin is unchanged essentially making him at low risk for any ongoing ACS. I think he has labile or poorly controlled hypertension which may be contributing to his presentation. He does not take anything for blood pressure control other than 10 mg of lisinopril in addition to his diltiazem. I think at this point it is reasonable to increase his diltiazem to 20 mg daily and provide him a as needed prescription for clonidine should his pressure remains sustained and elevated above 180 systolic. He is stable at this time and will make this change in his medication profile and have him follow-up with his regular doctor within the next 2 weeks to review his blood pressure control and make any adjustments to his medications. Stable at this time for discharge. Discussed return precautions. Time: 20:04 Vital Signs: Vital signs: Vital Signs Pulse Rate 65 11/23/21 18:20 Respiratory Rate 14 11/23/21 18:20 Blood Pressure 226/116 11/23/21 18:44 Pulse Oximetry 97 11/23/21 18:20 MDM - Chest Pain Medical Decision Making Patient with labile hypertension and associated chest pain with negative serial troponins and no acute EKG changes. His pressure is trended down with with treatment in the emergency department as well as his chest pain has resolved. We will plan on discharge with some modifications in his medications with primary care follow-up. Medical Records I reviewed the patient's medical records. Normal sestamibi stress test in May 2021. Echocardiogram revealed preserved left ventricular function with no wall motion abnormalities in May 2021 Lab Data I reviewed the patient's lab results. : 11/23/21 16:47 11/23/21 17:24 Laboratory Results WBC 11.3 10^3/uL (4.0-10.0) H 11/23/21 16:47 RBC 5.43 10^6/uL (4.1-5.3) H 11/23/21 16:47 Hgb 17.1 g/dL (11.7-16.6) H 11/23/21 16:47 Hct 50.7 % (42.0-52.0) 11/23/21 16:47 MCV 93.4 fl (80-94) 11/23/21 16:47 MCH 31.5 pg (28.0-34.0) 11/23/21 16:47 MCHC 33.7 g/dL (30.0-36.0) 11/23/21 16:47 RDW 14.0 % (12.1-15.1) 11/23/21 16:47 Plt Count 193 10^3/cmm (130-400) 11/23/21 16:47 MPV 10.8 fL (7.4-10.4) H 11/23/21 16:47 Neut % (Auto) 47.5 % 11/23/21 16:47 Lymph % (Auto) 38.4 % 11/23/21 16:47 [place] % (Auto) 7.7 % 11/23/21 16:47 Eos % (Auto) 5.0 % 11/23/21 16:47 Baso % (Auto) 1.0 % 11/23/21 16:47 Neut # (Auto) 5.36 10^3/uL (1.8-7.7) 11/23/21 16:47 Lymph # (Auto) 4.3 10^3/uL (0.8-4.8) 11/23/21 16:47 [place] # (Auto) 0.9 10^3/uL (0.2-0.9) 11/23/21 16:47 Eos # (Auto) 0.6 10^3/uL (0.0-0.8) 11/23/21 16:47 Baso # (Auto) 0.1 10^3/uL (0.0-0.1) 11/23/21 16:47 Nucleated RBC % (auto) 0 % 11/23/21 16:47 Nucleated RBCs # 0.0 /100WBC 11/23/21 16:47 Sodium 140 mmol/L (136-145) 11/23/21 17:24 Potassium 3.5 mmol/L (3.5-5.1) 11/23/21 17:24 Chloride 103 mmol/L (98-107) 11/23/21 17:24 Carbon Dioxide 26 mmol/L (22-29) 11/23/21 17:24 Anion Gap 14.5 (5-19) 11/23/21 17:24 BUN 9 mg/dL (8-23) 11/23/21 17:24 Creatinine 0.6 mg/dL (0.7-1.2) L 11/23/21 17:24 GFR Calculation Not Reportable 11/23/21 17:24 Glucose 100 mg/dL (65-115) 11/23/21 17:24 Calculated Osmolality 289 mOsm/kg (285-295) 11/23/21 17:24 Calcium 9.3 mg/dL (8.5-10.5) 11/23/21 17:24 Troponin T Baseline 15 ng/L (0-15) 11/23/21 17:24 Troponin T 120 Minute 14.44 ng/L (0-15) 11/23/21 19:24 NT-Pro-B Natriuret Pep 94 pg/mL (0-450) 11/23/21 17:24 EKG Data EKG 1: EKG interpretation time: 16:45 Interpretation: EKG shows a sinus rhythm of 73 bpm. Normal [place] QRS and QTc intervals. Normal axis. No acute ST-T wave changes. No change from prior tracings available within the system. Discharge Plan Discharge Patient Disposition: Home Clinical Impression: HTN (hypertension), ASHD (arteriosclerotic heart disease) Condition: Stable Prescriptions: New lisinopril 10 mg tablet 10 mg PO BID Qty: 60 0RF No Action clopidogrel 75 mg tablet 75 mg PO DAILY@08 0RF albuterol sulfate [ProAir HFA] 90 mcg/actuation HFA aerosol inhaler 2 puff INHALATION Q6H PRN (Reason: Bronchodilation) 0RF nitroglycerin [Nitrostat] 0.4 mg tablet, sublingual 0.4 mg SUBLINGUAL Q5M PRN (Reason: Chest Pain) 0RF gabapentin 300 mg capsule 300 mg PO TID 0RF isosorbide mononitrate 30 mg tablet extended release 24 hr See Rx Instructions PO DAILY Qty: 270 3RF Rx Instructions: Take 60mg in the AM and 30mg in the PM. diltiazem HCl 120 mg capsule,extended release 24hr 120 mg PO DAILY 0RF tramadol 50 mg Tablet 50 mg PO Q8H PRN (Reason: Pain) 0RF lorazepam 0.5 mg Tablet 0.5 mg PO DAILY MDD see pharmacy comment PRN (Reason: Anxiety) 0RF Flomax 0.4 mg Capsule 0.4 mg PO DAILY 0RF Zoloft 25 mg Tablet 25 mg PO DAILY 0RF Vitamin D3 10 mcg (400 unit) Capsule 10 mcg PO DAILY 0RF mirtazapine 7.5 mg Tablet 7.5 mg PO BEDTIME 0RF Symbicort 160-4.5 mcg/actuation HFA aerosol inhaler 2 puff INHALATION BID 0RF Focus Factor 1 tab PO DAILY 0RF pantoprazole 40 mg Tablet,Delayed Release (Dr/Ec) 40 mg PO DAILY Qty: 30 0RF lisinopril 10 mg Tablet 10 mg PO DAILY Qty: 30 0RF Discharge Orders: Discharge ED (Routine); Ordered 11/23/21 Ordered By: Odilon Beckman Referrals: Bishop Hall MD [Primary Care Provider] - Discharge Diet: Usual diet and Low Salt Discharge Activity: Resume usual activity Patient Instructions: Opioid Safety Activity Restrictions/Additional Instructions: We have provided a new prescription to allow you to increase your lisinopril to 10 mg or 1 pill twice daily. It should be taken once in the morning and once in the evening. We also recommend you follow-up with your doctor in the next 2 weeks for adjustment medication as indicated. If you develop any recurrent symptoms you are welcome to return to the emergency department for reevaluation. Coding Level of Care Code ED Materials Research Engineer for Ledy Hernandez Exam Comprehensive
--- NOTE | 2021-11-23 17:03 | ECG_ITS ---
[facility] Test Date: 2021-11-23 Pat Name: Jose Perkins Department: Room: Gender: Male Supervising Editor Trailer: : 1945 Requested By: Odilon Beckman Order Number: [id number] Asael MD: Dalton Stephenson M.D. Measurements Intervals [place] Rate: 64 P: 97 ND: 189 QRS: 43 QRSD: 121 T: 62 QT: 431 QTc: 445 Interpretive Statements SINUS RHYTHM Compared to ECG 11/23/2021 16:42:13 Myocardial infarct finding no longer present Electronically Signed On 11-24-2021 15:44:43 CDT by Dalton Stephenson M.D. [id number]
[2021-11-23 17:12] LABS: Basophils # 0.1 10^3/uL (0.0-0.1); Eosinophils # 0.6 10^3/uL (0.0-0.8); Hematocrit 50.7 % (42.0-52.0); Hemoglobin 17.1 g/dL (11.7-16.6); Lymphocytes # 4.3 10^3/uL (0.8-4.8); Lymphocytes % 38.4 %; Mean Corpuscular HGB Conc 33.7 g/dL (30.0-36.0); Mean Corpuscular Hemoglobin 31.5 pg (28.0-34.0); Mean Corpuscular Volume 93.4 fl (80-94); Mean Platelet Volume 10.8 fL (7.4-10.4); Monocytes # 0.9 10^3/uL (0.2-0.9); Monocytes % 7.7 %; Neutrophils # 5.36 10^3/uL (1.8-7.7); Neutrophils % 47.5 %; Nucleated Red Blood Cells % 0 %; Platelet Count 193 10^3/cmm (130-400); Red Blood Count 5.43 10^6/uL (4.1-5.3); White Blood Count 11.3 10^3/uL (4.0-10.0)
[2021-11-23 17:18] VITALS: RESP 20
[2021-11-23] MEDS: morphine 4 mg/mL SDV 1 mL IVP (17:18)
[2021-11-23 17:20] VITALS: BP 187/109; PULSE 68; RESP 20; O2SAT 96
[2021-11-23] MEDS: nitroglycerin 0.4 mg sublingual Tablet SUBLINGUAL ×2 (17:27→17:38)
[2021-11-23] MEDS: amlodipine 5 mg Tablet 2.5 MG PO (17:49)
[2021-11-23 17:54] VITALS: BP 175/124; PULSE 69; RESP 20; O2SAT 94
[2021-11-23 18:11] LABS: Troponin(5th) Baseline 15 ng/L (0-15)
[2021-11-23 18:16] LABS: Anion Gap 14.5 (5-19); Blood Urea Nitrogen 9 mg/dL (8-23); Calcium 9.3 mg/dL (8.5-10.5); Carbon Dioxide 26 mmol/L (22-29); Chloride 103 mmol/L (98-107); Glucose 100 mg/dL (65-115); Osmolality Calculated 289 mOsm/kg (285-295); Potassium 3.5 mmol/L (3.5-5.1); Sodium 140 mmol/L (136-145)
[2021-11-23 18:20] VITALS: BP 217/122; PULSE 65; RESP 14; O2SAT 97
[2021-11-23 18:20] LABS: NT Pro B Type Natriuretic Pept 94 pg/mL (0-450)
[2021-11-23 18:44] VITALS: BP 226/116
[2021-11-23] MEDS: cloNIDine 0.1 mg Tablet PO (18:44)
--- NOTE | 2021-11-23 19:03 | ECG_ITS ---
[facility] Test Date: 2021-11-23 Pat Name: Jose Perkins Department: Room: Gender: Male Manager Lighting: : 1945 Requested By: Odilon Beckman Order Number: [id number] Asael MD: Dalton Stephenson M.D. Measurements Intervals [place] Rate: 73 P: 90 HI: 167 QRS: 55 QRSD: 117 T: 75 QT: 413 QTc: 457 Interpretive Statements SINUS RHYTHM POSSIBLE INFERIOR MYOCARDIAL INFARCTION , OF INDETERMINATE AGE [30 ms Q WAVE IN II/aVF] Compared to ECG 06/12/2021 13:48:40 Myocardial infarct finding now present ST (T wave) deviation no longer present Early repolarization no longer present Electronically Signed On 11-24-2021 15:54:31 CDT by Dalton Stephenson M.D. [id number]
[2021-11-23 19:59] LABS: Troponin 5 2HR 14.44 ng/L (0-15)
[2021-11-23 20:06] LABS: Troponin 5 2HR Delta -0.56 ABS# (0-10)
--- NOTE | 2021-11-23 20:21 | ED_ITS ---
HPI - Chest Pain General: Chief Complaint: Chest Pain Stated Complaint: CHEST PAIN Time Seen by Provider: 11/23/21 16:36 Source: patient Mode of arrival: EMS Limitations: no limitations History of Present Illness: Pain location: left chest Relieving factors: nitroglycerin [facility] ED PFSH: Medical History ASHD (arteriosclerotic heart disease) BPH (benign prostatic hyperplasia) COPD (chronic obstructive pulmonary disease) CVA (cerebral vascular accident) Depression Diabetes GERD (gastroesophageal reflux disease) HTN (hypertension) Hyperlipidemia Peripheral neuropathy Tobacco abuse Surgical History History of appendectomy S/P cataract extraction S/P tonsillectomy Family History Father Cancer Mother Diabetes Social History Alcohol intake: former Course Vital Signs: Vital signs: Vital Signs Pulse Rate 65 11/23/21 18:20 Respiratory Rate 14 11/23/21 18:20 Blood Pressure 226/116 11/23/21 18:44 Pulse Oximetry 97 11/23/21 18:20 MDM - Chest Pain Lab Data : 11/23/21 16:47 11/23/21 17:24 Laboratory Results WBC 11.3 10^3/uL (4.0-10.0) H 11/23/21 16:47 RBC 5.43 10^6/uL (4.1-5.3) H 11/23/21 16:47 Hgb 17.1 g/dL (11.7-16.6) H 11/23/21 16:47 Hct 50.7 % (42.0-52.0) 11/23/21 16:47 MCV 93.4 fl (80-94) 11/23/21 16:47 MCH 31.5 pg (28.0-34.0) 11/23/21 16:47 MCHC 33.7 g/dL (30.0-36.0) 11/23/21 16:47 RDW 14.0 % (12.1-15.1) 11/23/21 16:47 Plt Count 193 10^3/cmm (130-400) 11/23/21 16:47 MPV 10.8 fL (7.4-10.4) H 11/23/21 16:47 Neut % (Auto) 47.5 % 11/23/21 16:47 Lymph % (Auto) 38.4 % 11/23/21 16:47 Hancock % (Auto) 7.7 % 11/23/21 16:47 Eos % (Auto) 5.0 % 11/23/21 16:47 Baso % (Auto) 1.0 % 11/23/21 16:47 Neut # (Auto) 5.36 10^3/uL (1.8-7.7) 11/23/21 16:47 Lymph # (Auto) 4.3 10^3/uL (0.8-4.8) 11/23/21 16:47 [place]ancock # (Auto) 0.9 10^3/uL (0.2-0.9) 11/23/21 16:47 Eos # (Auto) 0.6 10^3/uL (0.0-0.8) 11/23/21 16:47 Baso # (Auto) 0.1 10^3/uL (0.0-0.1) 11/23/21 16:47 Nucleated RBC % (auto) 0 % 11/23/21 16:47 Nucleated RBCs # 0.0 /100WBC 11/23/21 16:47 Sodium 140 mmol/L (136-145) 11/23/21 17:24 Potassium 3.5 mmol/L (3.5-5.1) 11/23/21 17:24 Chloride 103 mmol/L (98-107) 11/23/21 17:24 Carbon Dioxide 26 mmol/L (22-29) 11/23/21 17:24 Anion Gap 14.5 (5-19) 11/23/21 17:24 BUN 9 mg/dL (8-23) 11/23/21 17:24 Creatinine 0.6 mg/dL (0.7-1.2) L 11/23/21 17:24 GFR Calculation Not Reportable 11/23/21 17:24 Glucose 100 mg/dL (65-115) 11/23/21 17:24 Calculated Osmolality 289 mOsm/kg (285-295) 11/23/21 17:24 Calcium 9.3 mg/dL (8.5-10.5) 11/23/21 17:24 Troponin T Baseline 15 ng/L (0-15) 11/23/21 17:24 Troponin T 120 Minute 14.44 ng/L (0-15) 11/23/21 19:24 Delta Troponin T -0.56 ABS# (0-10) L 11/23/21 19:24 NT-Pro-B Natriuret Pep 94 pg/mL (0-450) 11/23/21 17:24 Discharge Plan Discharge Patient Disposition: Home Clinical Impression: HTN (hypertension), ASHD (arteriosclerotic heart disease) Condition: Stable Prescriptions: New lisinopril 10 mg tablet 10 mg PO BID Qty: 60 0RF No Action clopidogrel 75 mg tablet 75 mg PO DAILY@08 0RF albuterol sulfate [ProAir HFA] 90 mcg/actuation HFA aerosol inhaler 2 puff INHALATION Q6H PRN (Reason: Bronchodilation) 0RF nitroglycerin [Nitrostat] 0.4 mg tablet, sublingual 0.4 mg SUBLINGUAL Q5M PRN (Reason: Chest Pain) 0RF gabapentin 300 mg capsule 300 mg PO TID 0RF isosorbide mononitrate 30 mg tablet extended release 24 hr See Rx Instructions PO DAILY Qty: 270 3RF Rx Instructions: Take 60mg in the AM and 30mg in the PM. diltiazem HCl 120 mg capsule,extended release 24hr 120 mg PO DAILY 0RF tramadol 50 mg Tablet 50 mg PO Q8H PRN (Reason: Pain) 0RF lorazepam 0.5 mg Tablet 0.5 mg PO DAILY MDD see pharmacy comment PRN (Reason: Anxiety) 0RF Flomax 0.4 mg Capsule 0.4 mg PO DAILY 0RF Zoloft 25 mg Tablet 25 mg PO DAILY 0RF Vitamin D3 10 mcg (400 unit) Capsule 10 mcg PO DAILY 0RF mirtazapine 7.5 mg Tablet 7.5 mg PO BEDTIME 0RF Symbicort 160-4.5 mcg/actuation HFA aerosol inhaler 2 puff INHALATION BID 0RF Focus Factor 1 tab PO DAILY 0RF pantoprazole 40 mg Tablet,Delayed Release (Dr/Ec) 40 mg PO DAILY Qty: 30 0RF lisinopril 10 mg Tablet 10 mg PO DAILY Qty: 30 0RF Discharge Orders: Discharge ED (Routine); Ordered 11/23/21 Ordered By: Odilon Beckman Referrals: Bishop Hall MD [Primary Care Provider] - Discharge Diet: Usual diet and Low Salt Discharge Activity: Resume usual activity Patient Instructions: Opioid Safety Activity Restrictions/Additional Instructions: We have provided a new prescription to allow you to increase your lisinopril to 10 mg or 1 pill twice daily. It should be taken once in the morning and once in the evening. We also recommend you follow-up with your doctor in the next 2 weeks for adjustment medication as indicated. If you develop any recurrent symptoms you are welcome to return to the emergency department for reevaluation. Coding Level of Care Code ED Director Patient Accounting for Ledy Hernandez
[2021-11-23 20:23] VITALS: BP 153/77; PULSE 67; RESP 16; O2SAT 96
== END 2021-11-23 20:25 | disposition home or self-care (01) ==
PROVIDERS: Emergency Provider Emergency Medicine; PCP Family Medicine
DX: I10 Essential (primary) hypertension (principal); I25.10 Atherosclerotic heart disease of native coronary artery without angina pectoris; Z79.02 Long term (current) use of antithrombotics/antiplatelets; J44.9 Chronic obstructive pulmonary disease, unspecified; Z86.73 Personal history of transient ischemic attack (TIA), and cerebral infarction without residual deficits; E11.9 Type 2 diabetes mellitus without complications; E78.5 Hyperlipidemia, unspecified
CPT/HCPCS: 36415; 80048; 83880; 84484; 85025; 93005; 96374; 99284; J2270

== ENCOUNTER → 2021-12-09 12:51 | Outpatient (BNVA) | payer MEDICARE, SELFPAY | PROVIDERS: PCP Family Medicine; Visit Provider Nurse Practitioner Family | DX: I25.10 Atherosclerotic heart disease of native coronary artery without angina pectoris (principal); I10 Essential (primary) hypertension; Z87.891 Personal history of nicotine dependence | CPT/HCPCS: 99214 ==

== ENCOUNTER 2022-02-02 10:25 | Inpatient (IN) | payer MEDICARE, SELFPAY ==
[2022-02-02] VITALS (32 sets, daily range): BP systolic 142–233; BP diastolic 74–128; PULSE 71–108; RESP 10–58; TEMP 37; O2SAT 92–96; BMI 33.7
--- NOTE | 2022-02-02 10:20 | P.HP_ITS ---
Providers/Chief Complaint Admitting Physician: Dalton Stephenson M.D Primary Care Provider: Bishop Hall MD Chief Complaint: Chest Pains History of Present Illness Jose Perkins is a 76 year old male with past medical history of coronary artery disease status post multiple stents in the past, COPD, hypertension and diabetes who has been transferred from [facility]. According to patient he started noticing chest pain last night. He checked his blood pressure and it was around 200 mmHg. He took 4 nitros however chest pain was not resolving and he decided to call EMS. EMS gave another nitro and chest pain subsided. Initial troponin was not significantly elevated. EKG showed no acute ST-T changes. Patient again started having chest pain earlier this morning and was put on nitro drip. He was transferred here for further work-up. Review of Systems Const: Denies: fever(s) or chills Card: Reports: chest pain Resp: Denies: dyspnea, productive cough, non-productive cough or wheezing GI: Denies: abdominal pain, nausea or vomiting : Denies: dysuria Skin/Breast: Denies: rash Neuro: Denies: dizziness Psych: Denies: anxiety Medications/Allergies Home Medications Medication Instructions Recorded Confirmed Last Taken Type albuterol sulfate 90 mcg/actuation 2 puff INHALATION Q6H PRN 12/02/19 02/02/22 08/14/20 History aerosol inhaler (ProAir HFA) clopidogrel 75 mg tablet 75 mg PO DAILY@08 12/02/19 02/02/22 06/09/21 History nitroglycerin 0.4 mg sublingual 0.4 mg SUBLINGUAL Q5M PRN 12/02/19 02/02/22 06/12/21 History tablet (Nitrostat) gabapentin 300 mg capsule 300 mg PO TID cap 06/14/20 02/02/22 06/12/21 History budesonide-formoterol HFA 160 2 puff INHALATION BID 06/12/21 02/02/22 06/12/21 History mcg-4.5 mcg/actuation aerosol inhaler (Symbicort) cholecalciferol (vitamin D3) 10 10 mcg PO DAILY 06/12/21 02/02/22 06/11/21 History mcg (400 unit) capsule (Vitamin D3) diltiazem HCl 120 mg 120 mg PO DAILY 09/02/02/22 06/12/21 History capsule,extended release 24 hr lorazepam 0.5 mg tablet 0.5 mg PO DAILY PRN 06/12/21 02/02/22 Unknown History mirtazapine 7.5 mg tablet 7.5 mg PO BEDTIME 06/12/21 02/02/22 06/11/21 History sertraline 25 mg tablet (Zoloft) 50 mg PO DAILY 06/12/21 02/02/22 06/11/21 History tamsulosin 0.4 mg capsule (Flomax) 0.4 mg PO DAILY 06/12/21 02/02/22 06/12/21 History tramadol 50 mg tablet 50 mg PO Q8H PRN 06/12/21 02/02/22 Unknown History pantoprazole 40 mg tablet,delayed 40 mg PO DAILY #30 tab 06/13/21 02/02/22 Unknown Rx release lisinopril 10 mg tablet 10 mg PO BID #60 tab 11/23/21 02/02/22 Unknown Rx isosorbide mononitrate 60 mg 60 mg PO BID 02/02/22 02/02/22 Unknown History tablet,extended release 24 hr zinc 50 mg tablet 50 mg PO DAILY 02/02/22 02/02/22 Unknown History Allergies Allergy/AdvReac Type Severity Reaction Status Date / Time Penicillins Allergy Unknown Unknown Verified 12/09/21 13:06 tirofiban Allergy Unknown Unknown Verified 12/09/21 13:06 [From Aggrastat Concentrate] shellfish derived Allergy ADR-Vomitin Verified 12/09/21 13:06 g PFSH Acute PFSH: Medical History ASHD (arteriosclerotic heart disease) BPH (benign prostatic hyperplasia) COPD (chronic obstructive pulmonary disease) CVA (cerebral vascular accident) Depression Diabetes GERD (gastroesophageal reflux disease) HTN (hypertension) Hyperlipidemia Peripheral neuropathy Tobacco abuse Surgical History History of appendectomy S/P cataract extraction S/P tonsillectomy Family History Father Cancer Mother Diabetes Social History Smoking and tobacco status: current every day smoker cigarettes Packs smoked per day: 0.25 Alcohol intake: former Physical Exam Narrative: GENERAL: Patient is alert, awake and oriented x3. [] NECK: No jugular vein distension. [] HEENT: No cyanosis. No icterus. No pallor. [] HEART: Regular S1 and S2. No murmur, rub or gallop. [] LUNGS: Clear to auscultate bilaterally. [] ABDOMEN: Soft, nontender and nondistended. Positive bowel sounds. No guarding, rebound or tenderness. [] CENTRAL NERVOUS SYSTEM: Grossly nonfocal. [] EXTREMITIES: Lower extremities with 1+ edema bilaterally. Pulses palpable in the lower extremities, both dorsalis pedis and posterior tibial. [] A&P Assessment and plan (1) Chest pain: Concerning for unstable angina Status: Acute (2) Tobacco abuse: Status: Acute (3) HTN (hypertension): Status: Acute (4) ASHD (arteriosclerotic heart disease): Status: Acute (5) Diabetes: Status: Acute (6) CVA (cerebral vascular accident): Status: Acute (7) COPD (chronic obstructive pulmonary disease): Status: Acute Plan Patient has presented with elevated blood pressure and typical chest pain symptoms concerning for unstable angina. He has significant CAD history. Currently chest pain is controlled with nitro drip. Trend troponins. Order echocardiogram. Continue aspirin. We will plan on coronary angiogram tomorrow. Risks and benefits of the procedure have been discussed with the patient. He understands the risks and benefits and wants to proceed with it. Continue nitroglycerin drip. We will start p.o. medications including lisinopril and Cardizem Consulting medicine team for help with management of medical issues. Attestations Medical Necessity Statement*: Care expected to cross 2 midnights. Patient has presented with typical chest pain concerning for unstable angina Coding Level of Care Code Acute Supply Chain Manager for Ledy Hernandez Diagnoses Chest pain R07.9 Tobacco abuse Z72.0 HTN (hypertension) I10 ASHD (arteriosclerotic heart disease) I25.10 Diabetes E11.9 CVA (cerebral vascular accident) I63.9 COPD (chronic obstructive pulmonary disease) J44.9
--- NOTE | 2022-02-02 10:25 | XRR_ITS ---
PROCEDURE INFORMATION: Exam: XR Chest Exam date and time: 02/02/2022 12:12 PM Age: 76 years old Clinical indication: Shortness of breath; Additional info: Chest pain TECHNIQUE: Imaging protocol: XR of the chest. Views: 1 view. COMPARISON: DX XR chest 1V portable [id number] 02/02/2022 4:17 AM FINDINGS: Lungs: Emphysematous changes. No consolidation. Pleural spaces: No pleural effusion. No pneumothorax. Heart/Mediastinum: No cardiomegaly. Bones/joints: Visualized osseous structures are intact. Severe DJD of the left shoulder. XR/XR chest 1V portable [id number] IMPRESSION: Sequela of COPD. No acute findings.
--- NOTE | 2022-02-02 10:31 | ECG_ITS ---
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 Measurements Intervals [place] Rate: 89 P: 85 SD: 181 QRS: 32 QRSD: 121 T: 47 QT: 378 QTc: 461 Interpretive Statements SINUS RHYTHM Compared to ECG 11/23/2021 18:27:57 No significant changes Electronically Signed On 02-02-2022 12:09:27 CDT by Dalton Stephenson M.D. [id number]
[2022-02-02] MEDS: aspirin 81 mg EC Tablet PO (11:06)
[2022-02-02] MEDS: dilTIAZem ER (24HR) 120 mg Capsule PO (11:06)
[2022-02-02] MEDS: LORazepam 2 mg/mL INJ 1 mL 0.5 MG IVP (11:06)
[2022-02-02] MEDS: hyDRALAzine 20 mg/mL INJ 1 mL 10 MG IVP (11:06)
[2022-02-02] MEDS: lisinopril 20 mg Tablet PO ×2 (11:06→16:46)
[2022-02-02] MEDS: clopidogrel 75 mg Tablet PO (11:06)
--- NOTE | 2022-02-02 11:54 | USCV_ITS ---
Jose Perkins Age: 76 Gender: M : 1945 Exam Date: 02/02/2022 14:17 Ordering Phys: Johnson Mosher MD Technologist: Constantine Kent Exam Location: [facility] [place] Indication: chest pain BP: 214 / 110 HR: 93 Rhythm: Sinus Technical Quality: Adequate MEASUREMENTS (Male / Female) Normal Values 2D ECHO LV Diastolic Diameter PLAX 3.7 cm 4.2 - 5.9 / 3.9 - 5.3 cm LV Systolic Diameter PLAX 2.3 cm IVS Diastolic Thickness 1.2 cm 0.6 - 1.0 / 0.6 - 0.9 cm IVS Systolic Thickness 1.3 cm LVPW Diastolic Thickness 1.1 cm 0.6 - 1.0 / 0.6 - 0.9 cm LVPW Systolic Thickness 1.4 cm LVOT Diameter 2.0 cm LV Ejection Fraction 2D Teich 68.3 % LV Ejection Fraction MOD 2C 51.2 % LV Ejection Fraction 2C AL 50.9 % LA Diameter 3.9 cm Aorta at Sinotubular Diameter 2.5 cm M-MODE LV Diastolic Diameter MM 4.8 cm 4.2 - 5.9 / 3.9 - 5.3 cm LV Systolic Diameter MM 3.2 cm LV Ejection Fraction MM Teich 63.3 % IVS Diastolic Thickness MM 1.1 cm 0.6 - 1.0 / 0.6 - 0.9 cm IVS Systolic Thickness MM 1.5 cm LVPW Diastolic Thickness MM 1.4 cm 0.6 - 1.0 / 0.6 - 0.9 cm LVPW Systolic Thickness MM 1.9 cm RV Diastolic Diameter MM 1.3 cm Aortic Annulus Diameter 3.9 cm LA Ao Ratio MM 1.1 DOPPLER AV Peak Velocity 159.7 cm/s LVOT Peak Velocity 125.0 cm/s AV Area Cont Eq vti 2.6 cm squared AV Area Cont Eq pk 2.5 cm squared MV Area PHT 5.0 cm squared Mitral E to A Ratio 0.6 MV E' Velocity 36.5 cm/s Mitral E to MV E' Ratio 9.8 Mitral E to LV E' Lateral Ratio 9.6 Mitral E to LV E' Septal Ratio 10.1 TR Peak Velocity 170.0 cm/s TR Peak Gradient 11.6 mmHg Right Atrial Pressure 3.0 mmHg Pulmonary Artery Systolic Pressu 14.6 mmHg PV Peak Velocity 126.0 cm/s FINDINGS Left Ventricle Normal left ventricular size. LV systolic function is normal with EF of 55-60%. No regional wall motion abnormalities. Grade 1 diastolic dysfunction Right Ventricle The right ventricle is normal in size and function. Right Atrium The right atrium is normal in size. Left Atrium The left atrium is normal in size. Mitral Valve Structurally normal mitral valve without significant stenosis or prolapse. There is no mitral regurgitation. Aortic Valve Grossly normal. No significant stenosis. There is no aortic regurgitation. Tricuspid Valve Not well visualized. Trace tricuspid regurgitation. Pulmonary artery systolic pressure is normal. Pulmonic Valve Not well visualized Pericardium Normal pericardium without effusion. Aorta Normal ascending aorta dimension. IVC CONCLUSIONS Technically limited quality echocardiogram because of poor ultrasonic windows. LV systolic function is normal with EF of 55-60% Grade 1 diastolic dysfunction No gross valvular abnormalities. Trace tricuspid regurgitation. Compared to prior echocardiogram from 06/12/2021, no significant changes are seen. Dalton Stephenson MD (Electronically Signed) Final Date: 02 Feb 2022 18:37 S
--- NOTE | 2022-02-02 12:03 | PM.CONSULT ---
Providers/Reason For Consult Consulting Physician/Specialty*: Cardiology Reason for Consult*: Chest pain Attending Physician: Dalton Stephenson M.D Primary Care Provider: Bishop Hall MD History of Present Illness History of Present Illness Jose Perkins is a 76 year old male with a past medical history of CAD status post 7 stents, history of COPD, history of smoking, history of type 2 diabetes mellitus but patient declines history of this, history of hypertension, who presents to [facility] due to chest pain. Patient originally was seen at [facility], for chest pain and hypertensive urgency, he was transferred here due to elevated blood pressures and concerns for chest pain. Patient tells me that he has had 7 stents placed in the heart, for the last day or so he has been developing substernal chest pain, left-sided, left-sided chest rating down the left arm, with numbness down the left arm, has been feeling more short of breath, he continues to smoke, no diaphoresis, no lightheadedness, no nausea, no vomiting. Did have a hospitalization of May 2021 for chest pain, currently he is complaining of left-sided chest pain, rating down the left arm, he is hypertensive, systolic blood pressures in the 220s, did receive hydralazine, remains anxious, he has told nursing staff that his has kicked him out of the house, they are having a lot of discord, also his own sister will talk with him. Patient had work-up at [facility], EKG no acute ST-T wave changes, first troponin WNL, bnp 134, EKG no acute ST-T wave changes Review of Systems Const: Denies: fever(s) or chills Resp: Denies: dyspnea, productive cough, non-productive cough or wheezing GI: Denies: abdominal pain, nausea or vomiting : Denies: dysuria Skin/Breast: Denies: rash Neuro: Denies: dizziness Psych: Denies: anxiety Medications/Allergies Home Medications Medication Instructions Recorded Confirmed Last Taken Type albuterol sulfate 90 mcg/actuation 2 puff INHALATION Q6H PRN 12/02/19 02/02/22 08/14/20 History aerosol inhaler (ProAir HFA) clopidogrel 75 mg tablet 75 mg PO DAILY@08 12/02/19 02/02/22 06/09/21 History nitroglycerin 0.4 mg sublingual 0.4 mg SUBLINGUAL Q5M PRN 12/02/19 02/02/22 06/12/21 History tablet (Nitrostat) gabapentin 300 mg capsule 300 mg PO TID cap 06/14/20 02/02/22 06/12/21 History budesonide-formoterol HFA 160 2 puff INHALATION BID 06/12/21 02/02/22 06/12/21 History mcg-4.5 mcg/actuation aerosol inhaler (Symbicort) cholecalciferol (vitamin D3) 10 10 mcg PO DAILY 06/12/21 02/02/22 06/11/21 History mcg (400 unit) capsule (Vitamin D3) diltiazem HCl 120 mg 120 mg PO DAILY 06/12/21 02/02/22 06/12/21 History capsule,extended release 24 hr lorazepam 0.5 mg tablet 0.5 mg PO DAILY PRN 06/12/21 02/02/22 Unknown History mirtazapine 7.5 mg tablet 7.5 mg PO BEDTIME 06/12/21 02/02/22 06/11/21 History sertraline 25 mg tablet (Zoloft) 50 mg PO DAILY 06/12/21 02/02/22 06/11/21 History tamsulosin 0.4 mg capsule (Flomax) 0.4 mg PO DAILY 06/12/21 02/02/22 06/12/21 History tramadol 50 mg tablet 50 mg PO Q8H PRN 06/12/21 02/02/22 Unknown History pantoprazole 40 mg tablet,delayed 40 mg PO DAILY #30 tab 06/13/21 02/02/22 Unknown Rx release lisinopril 10 mg tablet 10 mg PO BID #60 tab 11/23/21 02/02/22 Unknown Rx isosorbide mononitrate 60 mg 60 mg PO BID 02/02/22 02/02/22 Unknown History tablet,extended release 24 hr zinc 50 mg tablet 50 mg PO DAILY 02/02/22 02/02/22 Unknown History Allergies Allergy/AdvReac Type Severity Reaction Status Date / Time Penicillins Allergy Unknown Unknown Verified 12/09/21 13:06 tirofiban Allergy Unknown Unknown Verified 12/09/21 13:06 [From Aggrastat Concentrate] shellfish derived Allergy ADR-Vomitin Verified 12/09/21 13:06 g Current Medications Generic Name Dose Route Start Last Admin Trade Name Freq PRN Reason Stop Dose Admin Aspirin 81 mg 02/02/22 10:35 02/02/22 11:06 Aspirin 81 Mg Ec Tablet PO 81 mg DAILY TOYA Administration Clopidogrel Bisulfate 75 mg 02/02/22 10:30 02/02/22 11:06 Clopidogrel 75 Mg Tablet PO 75 mg DAILY@08 TOYA Administration Diltiazem HCl 120 mg 02/02/22 10:30 02/02/22 11:06 Diltiazem Er (24hr) 120 Mg Capsule PO 120 mg DAILY TOYA Administration Lisinopril 20 mg 02/02/22 10:35 02/02/22 11:06 Lisinopril 20 Mg Tablet PO 20 mg BID TOYA Administration Lorazepam 0.5 mg 02/02/22 10:25 02/02/22 11:06 Lorazepam 2 Mg/Ml Inj 1 Ml IVP 0.5 mg Q6H PRN Administration ANXIETY PFSH Acute PFSH: Medical History ASHD (arteriosclerotic heart disease) BPH (benign prostatic hyperplasia) COPD (chronic obstructive pulmonary disease) CVA (cerebral vascular accident) Depression Diabetes GERD (gastroesophageal reflux disease) HTN (hypertension) Hyperlipidemia Peripheral neuropathy Tobacco abuse Surgical History History of appendectomy S/P cataract extraction S/P tonsillectomy Family History Father Cancer Mother Diabetes Social History Smoking and tobacco status: current every day smoker cigarettes Packs smoked per day: 0.25 Alcohol intake: former Vitals/I&O/Wt Weight last 48 hrs Weight 106.594 kg Physical Exam Const: COMMON NORMALS: no acute distress and patient oriented x3 HENMT: COMMON NORMALS: normocephalic HEAD & SCALP: normocephalic Eye: COMMON NORMALS: Equal, round and reactive pupils present and EOMs intact bilaterally PUPIL: Yes Equal, round and reactive pupils present Neck/C-Spine: COMMON NORMALS: no JVD Lymph: LYMPHATIC: no lymphadenopathy noted Resp: COMMON NORMALS: normal respiratory effort, No retractions, No use of accessory muscles and clear to auscultation bilaterally AUSCULTATION: clear to auscultation bilaterally Cardio: COMMON NORMALS: no JVD, regular rate, regular rhythm, S1 normal heart sound present and S2 normal heart sound present RATE: regular rate RHYTHM: regular rhythm HEART SOUNDS: S1 normal heart sound present and S2 normal heart sound present GI: COMMON NORMALS: Normal to inspection, nondistended, normoactive bowel sounds present, Soft to palpation, non-tender, No hepatosplenomegaly present, no masses and no bruits PALPATION: Yes Soft to palpation and Yes No hepatosplenomegaly present Extremity: COMMON NORMALS: capillary refill normal, no clubbing, cyanosis or edema, no calf tenderness and no pedal edema Neuro: COMMON NORMALS: patient oriented x3, CN's II-XII intact bilaterally, moves all extremities and no focal motor deficits Psych: COMMON NORMALS: mental status grossly normal A&P Assessment and plan (1) Chest pain: Status: Acute (2) Tobacco abuse: Status: Acute (3) HTN (hypertension): Status: Acute (4) ASHD (arteriosclerotic heart disease): Status: Acute (5) Diabetes: Status: Acute (6) CVA (cerebral vascular accident): Status: Acute (7) COPD (chronic obstructive pulmonary disease): Status: Acute Plan Unstable angina -Serial EKGs, serial troponins, telemetry monitoring -Continue nitro drip -Continue aspirin, statin, Plavix -Monitor for chest pain -Cardiac echo Cardiology on consult -Full code -Lovenox for DVT prophylaxis Hypertensive urgency, recheck blood pressure has received labetalol, is on a nitro drip COPD, does have wheezing on exam, DuoNeb, budesonide will, will consider steroids, chest x-ray, Pro-Chepe, CRP, BMP Does have RPR positivity back in September 2021, recheck test, HIV, hep C Type 2 diabetes mellitus, denies a history of diabetes, check A1c, low-dose sliding scale History of CVA Hypertension, continue home meds Consult Attestations Medical Necessity Statement: Patient requires hospitalization for chest pain, inpatient, greater than 2 minutes Coding Level of Care Code Acute Slip Operator for Chg Fwd Exam Comprehensive Diagnoses Chest pain R07.9 Tobacco abuse Z72.0 HTN (hypertension) I10 ASHD (arteriosclerotic heart disease) I25.10 Diabetes E11.9 CVA (cerebral vascular accident) I63.9 COPD (chronic obstructive pulmonary disease) J44.9
[2022-02-02] MEDS: nitroglycerin drip 50 MG/250 ML PREMIX IV (12:20)
[2022-02-02 12:31] LABS: Basophils # 0.1 10^3/uL (0.0-0.1); Basophils % 0.7 %; Eosinophils # 0.1 10^3/uL (0.0-0.8); Eosinophils % 0.5 %; Hematocrit 50.8 % (42.0-52.0); Hemoglobin 17.4 g/dL (11.7-16.6); Lymphocytes # 2.6 10^3/uL (0.8-4.8); Lymphocytes % 23.8 %; Mean Corpuscular HGB Conc 34.3 g/dL (30.0-36.0); Mean Corpuscular Hemoglobin 32.4 pg (28.0-34.0); Mean Corpuscular Volume 94.6 fl (80-94); Mean Platelet Volume 10.2 fL (7.4-10.4); Monocytes # 0.5 10^3/uL (0.2-0.9); Monocytes % 4.3 %; Neutrophils # 7.74 10^3/uL (1.8-7.7); Nucleated Red Blood Cells % 0 %; Platelet Count 206 10^3/cmm (130-400); Red Blood Count 5.37 10^6/uL (4.1-5.3); Red Cell Distribution Width 13.3 % (12.1-15.1); White Blood Count 11.1 10^3/uL (4.0-10.0)
--- NOTE | 2022-02-02 12:31 | ECG_ITS ---
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 Measurements Intervals [place] Rate: 97 P: 75 [place]: 179 QRS: 49 QRSD: 115 T: 36 QT: 372 QTc: 474 Interpretive Statements SINUS RHYTHM Compared to ECG 02/02/2022 10:57:54 No significant changes Electronically Signed On 02-03-2022 8:06:42 CDT by Dalton Stephenson M.D. [id number]
[2022-02-02 12:41] LABS: Glucose Point of Care 138 mg/dL (70-110)
[2022-02-02 12:58] LABS: D Dimer 1.24 ug/mIFEU (0-0.59)
[2022-02-02 13:02] LABS: Troponin(5th) Baseline 18 ng/L (0-15)
[2022-02-02 13:10] LABS: NT Pro B Type Natriuretic Pept 209 pg/mL (0-450)
[2022-02-02 13:20] LABS: Hepatitis A Antibody IgM Non-Reactive (Nonreactive); Hepatitis B Core IgM Non-Reactive (Nonreactive); Hepatitis B Surface Antigen Non-Reactive (Nonreactive); Hepatitis C Virus Antibody Non-Reactive (Nonreactive)
[2022-02-02 13:21] LABS: Alanine Aminotransferase 40 U/L (0-41); Alkaline Phosphatase 92 IU/L (40-130); Anion Gap 17.4 (5-19); Aspartate Amino Transferase 55 U/L (0-40); Blood Urea Nitrogen 7 mg/dL (8-23); C Reactive Protein 31.7 mg/L (0.0-4.9); Calcium 8.5 mg/dL (8.5-10.5); Carbon Dioxide 24 mmol/L (22-29); Chloride 101 mmol/L (98-107); Chol HDL Ratio 5.94 mg/dL (1.0-5.00); Cholesterol 190 mg/dL (0-200); Globulin 3.2 g/dL (1.3-4.6); Glucose 122 mg/dL (65-115); HDL Cholesterol 32 mg/dL (60-100); HIV 1 & 2 Antibody Non-Reactive (Non-Reactiv); HIV 1 & 2 Antigen Non-Reactive (Non-Reactiv); LDL Cholesterol Calculated 137 mg/dL (50-129); LDL HDL Ratio 4.28 RATIO (0.00-3.22); Magnesium 1.8 mg/dL (1.7-2.3); Osmolality Calculated 287 mOsm/kg (285-295); Phosphorus 1.6 mg/dL (2.5-4.5); Potassium 3.4 mmol/L (3.5-5.1); Sodium 139 mmol/L (136-145); Total Protein 7.2 g/dL (6.6-8.7); Triglycerides 103 mg/dL (0-150)
[2022-02-02] MEDS: morphine 4 mg/mL SDV 1 mL 1 MG IVP (13:23)
[2022-02-02] MEDS: enoxaparin 40 mg/0.4 mL Syringe SUBCUT (13:23)
[2022-02-02] MEDS: budesonide 0.5 mg/2 mL Neb INHALATION ×2 (13:25→19:50)
--- NOTE | 2022-02-02 14:08 | CTR_ITS ---
PROCEDURE INFORMATION: Exam: CTA Chest With Contrast Exam date and time: 02/02/2022 2:48 PM Age: 76 years old Clinical indication: Pain; Shortness of breath; Chest pressure; Prior surgery; Surgery type: Stents; Additional info: Chest pain, shortness of breath TECHNIQUE: Imaging protocol: Computed tomographic angiography of the chest with contrast. 3D rendering (Not supervised by radiologist): MIP and/or 3D reconstructed images were created by the technologist. Radiation optimization: All CT scans at this facility use at least one of these dose optimization techniques: automated exposure control; mA and/or kV adjustment per patient size (includes targeted exams where dose is matched to clinical indication); or iterative reconstruction. Contrast material: VISI 320; Contrast volume: 76 ml; Contrast route: INTRAVENOUS (IV); COMPARISON: CT angio chest PE protcl [id number] 06/13/2021 1:54 PM RADIATION DOSE METRICS: Total DLP (mGy-cm): 557.87 FINDINGS: Pulmonary arteries: Normal. No pulmonary emboli. Aorta: No aortic aneurysm. No aortic dissection. Lungs: Moderate centrilobular emphysematous changes. No consolidation. Lobulated 1 cm nodule with punctate calcification in the right lung base is unchanged from prior study dated 06/13/2021. Pleural spaces: No pneumothorax. No pleural effusion. Heart: Coronary artery stents noted. No cardiomegaly. No pericardial effusion. Lymph nodes: No enlarged lymph nodes. Bones/joints: No acute fracture. Soft tissues: Unremarkable. CT/CT angio chest PE protcl [id number] IMPRESSION: Moderate emphysema. Negative for pulmonary embolism. No acute findings.
[2022-02-02 14:12] LABS: Rapid Plasma Reagin Syphilis Reactive (Nonreactive)
--- NOTE | 2022-02-02 14:31 | PC.NURSE ---
frequent c/o anxiety .. noted increase in blood pressure with any visiting in room. related left him, he has been depressed in past with lots of anxiety , slowly increasing nitro and giving ativan
[2022-02-02] MEDS: iodixanol 320 mg/mL 100mL Btl IV (14:52)
[2022-02-02] MEDS: labetalol 5 mg/mL SDV 20mL 10 MG IVP ×2 (15:28→23:48)
[2022-02-02] MEDS: gabapentin 300 mg Capsule PO ×2 (15:28→21:01)
[2022-02-02 15:33] LABS: Estmated Average Glucose 148; Hemoglobin A1C 6.8 % (4.0-6.0)
--- NOTE | 2022-02-02 16:31 | ECG_ITS ---
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 Measurements Intervals [place] Rate: 84 P: 46 MT: 176 QRS: 20 QRSD: 117 T: 44 QT: 401 QTc: 474 Interpretive Statements SINUS RHYTHM INFERIOR MYOCARDIAL INFARCTION , PROBABLY OLD [40+ ms Q WAVE AND/OR ST/T ABNORMALITY IN II/aVF] Compared to ECG 02/02/2022 13:05:54 Myocardial infarct finding now present Electronically Signed On 02-03-2022 8:06:18 CDT by Dalton Stephenson M.D. [email or web address]
[2022-02-02] MEDS: isosorbide mononitrate ER 30 mg Tablet PO (16:46)
[2022-02-02 17:11] LABS: Troponin 5 2HR 14.09 ng/L (0-15)
[2022-02-02 17:15] LABS: Glucose Point of Care 131 mg/dL (70-110)
[2022-02-02] MEDS: HYDROmorphone 1 mg/mL INJ 1 mL IVP (17:17)
[2022-02-02] MEDS: alum-mag-hydroxide-sime 30 mL UDC PO (17:17)
--- NOTE | 2022-02-02 17:29 | PC.NURSE ---
blood pressure remains elevated and audible burping noted remains restless with some confusion.... c/o pain in right side chest, abdomen and head when doctor here to visit also c/o pain abdomen arms and legs... mylanta given and medicine iv
[2022-02-02 17:45] LABS: Troponin 5 2HR Delta -3.91 ABS# (0-10)
--- NOTE | 2022-02-02 18:13 | CTR_ITS ---
PROCEDURE INFORMATION: Exam: CT Head Without Contrast Exam date and time: 02/02/2022 8:22 PM Age: 76 years old Clinical indication: Altered mental status/memory loss; Confusion or disorientation; Additional info: AMS? Dementia TECHNIQUE: Imaging protocol: Computed tomography of the head without contrast. Radiation optimization: All CT scans at this facility use at least one of these dose optimization techniques: automated exposure control; mA and/or kV adjustment per patient size (includes targeted exams where dose is matched to clinical indication); or iterative reconstruction. COMPARISON: CT head wo con* [id number] 08/14/2020 1:44 PM RADIATION DOSE METRICS: Total DLP (mGy-cm): 904.89 FINDINGS: Brain: No evidence of intracranial hemorrhage, mass effect, midline shift or extra-axial fluid collections. Midline structures are normal. Schaefer-white matter differentiation is normal. There are multiple small hypodensities in the basal ganglia consistent with remote lacunar infarctions. Cerebral ventricles: No ventriculomegaly. Paranasal sinuses: Mucosal thickening in the ethmoid and maxillary sinuses. Mastoid air cells: Visualized mastoid air cells are well aerated. Orbital cavities: The patient has had bilateral lens replacement surgery. Vasculature: Carotid and vertebral artery atherosclerotic calcification. Bones/joints: Unremarkable. No acute fracture. Soft tissues: Unremarkable. Other findings: Age appropriate atrophy and small vessel ischemic change. CT/CT head wo con* [id number] IMPRESSION: No acute intracranial abnormality.
[2022-02-02 19:02] LABS: Troponin 5 6HR 17.35 ng/L (0-15)
[2022-02-02 19:05] LABS: Troponin 5 6HR Delta -0.65 ng/L (0-12)
[2022-02-02] MEDS: cefTRIAXone 2,000 MG in sodium chloride 0.9% (plus) 50 ML 100 MG IV (20:34)
--- NOTE | 2022-02-02 20:41 | PC.NURSE ---
Large SCDs are the only size available.
--- NOTE | 2022-02-02 20:57 | PC.NURSE ---
Pt has significant clubbing of fingernails and toenails.
[2022-02-02 22:07] LABS: Glucose Point of Care 134 mg/dL (70-110)
--- NOTE | 2022-02-02 22:20 | PC.NURSE ---
NTG drip decreased to 40 mcg/min from 50 mcg/min. MAR did not correctly reflect previous dose. NTG drip running at 50 mcg/min when this nurse assumed care of patient.
[2022-02-02 22:22] LABS: Blood Urine Trace (Negative); Glucose Urine UA Norm (Normal); Ketones Urine 1+ (Negative); Protein Urine Trace (Negative); Specific Gravity, Urine 1.005 (1.005-1.030); Urine Appearance Clear (CLEAR); Urine Color Yellow (Yellow); pH Urine 7 (5-7)
[2022-02-02 22:23] LABS: Add Urine Microscopic? YES; Bilirubin Urine Neg (Negative); Leukocyte Esterase Urine Trace (Negative); Nitrate Urine Negative (Negative); Urobilinogen Urine 4+ mg/dL (Negative)
[2022-02-02 22:24] LABS: Add Urine Culture? No; Bacteria Urine TRACE /hpf; RBC Urine 0-4 /hpf (0-2); Squamous Epithelial Cell Urine 0-4 /hpf (0-5); WBC Urine 0-4 /hpf (0-5)
[2022-02-03] VITALS (65 sets, daily range): BP systolic 86–204; BP diastolic 40–129; PULSE 54–94; RESP 10–30; TEMP 36.8–37.4; O2SAT 90–98
--- NOTE | 2022-02-03 00:14 | PC.NURSE ---
Pt's bilateral groin and wrists clipped for skill labor tomorrow. Bilateral dorsalis pedis and posterior tibial pulses marked with skin marker. Labetalol has been given. If blood pressure decreases, NTG drip will be decreased. Pt has no complaints of chest pain.
--- NOTE | 2022-02-03 00:16 | PC.NURSE ---
At approximately 2300 yesterday, pt complained of being very nervous and was visibly restless. Ativan given. Pt initially thought there was a mule in the martínez. After a few minutes of sitting with him and asking him questions about his life, patient became completely oriented and had no further hallucinations.
--- NOTE | 2022-02-03 00:37 | PC.NURSE ---
Pt made NPO at midnight.
--- NOTE | 2022-02-03 01:53 | PC.NURSE ---
Pt resting quietly in bed with eyes closed. Respirations even and unlabored.
--- NOTE | 2022-02-03 03:04 | PC.NURSE ---
Pt wakes up from sleep very impulsive, and attempts to get out of bed. Pt easily reoriented. Bed alarm remains on.
[2022-02-03 03:32] LABS: Basophils # 0.1 10^3/uL (0.0-0.1); Basophils % 0.5 %; Eosinophils # 0.1 10^3/uL (0.0-0.8); Hematocrit 48.2 % (42.0-52.0); Hemoglobin 16.2 g/dL (11.7-16.6); Lymphocytes # 4.2 10^3/uL (0.8-4.8); Lymphocytes % 32.7 %; Mean Corpuscular HGB Conc 33.6 g/dL (30.0-36.0); Mean Corpuscular Hemoglobin 31.8 pg (28.0-34.0); Mean Corpuscular Volume 94.5 fl (80-94); Mean Platelet Volume 10.3 fL (7.4-10.4); Monocytes % 7.4 %; Neutrophils # 7.48 10^3/uL (1.8-7.7); Neutrophils % 58.1 %; Nucleated Red Blood Cells % 0 %; Platelet Count 206 10^3/cmm (130-400); Red Cell Distribution Width 13.5 % (12.1-15.1); White Blood Count 12.9 10^3/uL (4.0-10.0)
[2022-02-03] MEDS: morphine 4 mg/mL SDV 1 mL 1 MG IVP ×2 (03:44→13:32)
[2022-02-03] MEDS: labetalol 5 mg/mL SDV 20mL 10 MG IVP (03:44)
[2022-02-03 03:48] LABS: Alanine Aminotransferase 31 U/L (0-41); Albumin Level 3.7 g/dL (3.5-5.2); Alkaline Phosphatase 83 IU/L (40-130); Anion Gap 14.1 (5-19); Aspartate Amino Transferase 46 U/L (0-40); Blood Urea Nitrogen 11 mg/dL (8-23); Calcium 8.6 mg/dL (8.5-10.5); Carbon Dioxide 26 mmol/L (22-29); Chloride 105 mmol/L (98-107); Globulin 3.4 g/dL (1.3-4.6); Glucose 113 mg/dL (65-115); Osmolality Calculated 294 mOsm/kg (285-295); Phosphorus 2.3 mg/dL (2.5-4.5); Potassium 3.1 mmol/L (3.5-5.1); Sodium 142 mmol/L (136-145); Total Bilirubin 0.9 mg/dL (0.15-1.2); Total Protein 7.1 g/dL (6.6-8.7)
[2022-02-03] MEDS: sodium chloride 0.9% 1,000 ML 50 ML IV (05:31)
[2022-02-03] MEDS: diphenhydrAMINE 50 mg Capsule PO (06:06)
[2022-02-03] MEDS: nitroglycerin drip 50 MG/250 ML PREMIX 12 MG IV (06:12)
[2022-02-03] MEDS: budesonide 0.5 mg/2 mL Neb INHALATION ×2 (08:08→19:43)
--- NOTE | 2022-02-03 08:11 | XACV_ITS ---
Exam Room: [facility] Ht: 178 cm Wt: 107 kg BSA: 2.33 m2 Gender: Male : 1945 Any Known Allergies: Other Exam Priority: Routine Procedure(s): Procedure Description: Diagnostic procedure Procedure Description: PCI procedure Procedure Description: Drug Eluting Coronary Stent Procedure Description: PTCA Procedure Description: Miscellaneous Procedure Description: ACT Procedure Description: Coronary Angiography Diagnostic Cath Status: Urgent Diagnostic Findings * Left Main has luminal irregularities. * Left Anterior Descending has mild diffuse disease. Diagonal artery has patent prior stent. * Circumflex is small sized vessel. Diffuse disease is seen Patient is a large sized ramus artery that is patent. Has mild 20 to 30% proximal vessel disease.. * Mid Right Coronary Artery to Distal Right Coronary Artery: significant 80% stenosis, GREGORY: 3 flow. * Distal Right Coronary Artery: obstructive 70% stenosis, GREGORY: 3 flow. * Coronary angiography shows right dominance. PCI Status: Urgent PCI Indication: Other Interventional Findings * Procedure detail: We engaged RCA with JR4 guide catheter. 0.014 run-through guidewire was used to cross RCA stenosis and was put in distal vessel. Anticoagulation was obtained with IV heparin. Using a guide liner, we advanced 2.5 x 12 mm semicompliant balloon first to distal artery and performed balloon angioplasty of distal RCA. This was followed by balloon angioplasty of mid RCA vessel. At this time we performed PCI of mid RCA with 3.0 x 15 mm resolute [place] drug-eluting stent. Distal vessel had excellent flow after balloon angioplasty, we did not put another stent. At this time final angiogram was performed that showed excellent stent expansion, no residual stenosis and GREGORY-3 flow. Guidewire and guide catheter were removed. Patient left the Sign Language Teacher in a stable condition.. * Mid Right Coronary Artery to Distal Right Coronary Artery: 80% stenosis treated with a AB TREK 2.50X12 RX BALLOON, and MDT R VERA 3.0X15 TING. 0% residual stenosis, GREGORY: 3 flow. * Distal Right Coronary Artery: 70% stenosis treated with a AB TREK 2.50X12 RX BALLOON. 0% residual stenosis, GREGORY: 3 flow. Conclusions 1. Severe mid and distal RCA stenosis. Status post successful revascularization of 2. mid RCA with TING x1 and distal RCA with balloon angioplasty.. 3. Mid Right Coronary Artery to Distal Right Coronary Artery was treated with a Balloon, and Drug Eluting Stent. 4. Distal Right Coronary Artery was treated with a Balloon. Recommendations * Transferred back to ICU. * Aspirin and Plavix for at least 1 year. * High intensity statin therapy. * Beta-aguila and JANEE inhibitor therapy. * Outpatient cardiology follow-up in 4 weeks. Interventional RX Recommendation: PCI w/o planned CABG Diagnostic RX Recommendation: PCI w/o planned CABG Anticoagulation: Heparin Pressures Phase:Rest AO : 190 / 92 ( 131 ) @ 9:47:00 AM 180 / 108 ( 142 ) @ 9:48:00 AM 178 / 101 ( 139 ) @ 9:53:00 AM 208 / 95 ( 142 ) @ 10:06:00 AM 196 / 108 ( 152 ) @ 10:19:00 AM 169 / 108 ( 137 ) @ 10:20:00 AM Clinical Evaluation EBL: 5mL-10mL Procedural Details Procedure Consent Obtained. Pre-Procedure Time Out. Identified patient by full name and date of as verbalized by the patient/guarantor. Does the consent match the physician's order: Yes. Accurate & Complete Informed Consent: Yes. Inpatient/Outpatient History & Physical on Chart: Yes. If H&P is completed, is and addenduem needed: No; If yes, is the addendum complete: N/A. Visualize and Verify Site with Patient/Guarantor: N/A. Relevant Radiology Images available: Yes. Pre-op teaching completed and patient verbalized understanding. The risks, benefits, and alternatives of sedation and/or procedure were discussed by physician. The patient agrees to continue. Procedure started. [facility] Clinical Fraility Score: 4: Vulnerable. Sign Language Teacher Indications: ACS > 24 hours. Chest Pain Symptom Assessment: Atypical Angina. Correct patient, site and procedure confirmed by cath team. Current diagnosis: NSTEMI. PERRLA. Strong, equal hand securities supervisor bilaterally. Lungs clear x 5 lobes. IV Site on Arrival: 18 gauge in the left anticubital. IV Fluids: 0.9% NaCl at KVO. 0 mL infused prior to technical laboratory asst. Oxygen started at 2liters/min via nasal canula. right groin was prepped with chloroprep then draped in the usual sterile fashion. right radial was prepped with chloroprep then draped in the usual sterile fashion. Physician notified. Pre Procedural Pulses: right radial was 2+. Physician arrived. Baseline sample Acquired. HR: 83 BPM. Physician scrubbed in. Immediate Pre-Procedure Time Out. Correct Patient: Yes; Correct Procedure: Yes; Correct Site: Yes; Correct Patient Position: Yes; Correct Supplies: Yes; Dried Flammable Prep: Yes; Blood Products Available: N/A;. Lidocaine 1% infiltrated to the right radial. Arterial access obtained. A 5 mauritanian TIG catheter in over wire. Multiple views taken of left coronary artery. Catheter removed over the standard wire. A 5 mauritanian JR4 catheter in over wire. Multiple views taken of right coronary artery. Catheter removed over the standard wire. 6 mauritanian JR 4 guide catheter was inserted over the wire. Runthrough guidewire was advanced through the guide catheter to lesion in the mid RCA. Guideliner inserted OTW. Inflation number : 1 A AB TREK 2.50X12 RX BALLOON was prepped and advanced across the Mid RCA , then inflated to 12 TRISHA for 0:16 seconds. Inflation number: 2 The AB TREK 2.50X12 RX BALLOON was reinflated across the Mid RCA, to 12 TRISHA for 0:16 seconds. Inflation number: 1 The AB TREK 2.50X12 RX BALLOON was reinflated across the Dist RCA, to 12 TRISHA for 0:18 seconds. Balloon out. Inflation Number : 3 A ROSY Howe VERA 3.0X15 TING -Lot Number# _[id number]_ EXP:10/17/2024 was prepped and advanced across the Mid RCA. The stent was deployed at 12 TRISHA for 0:24 seconds. Stent balloon out over wire. Wire out. Guide catheter out. ACT drawn. Results seconds. Therapeutic limits - pre-heparin administration 90-150 seconds and monitoring heparin during a vascular procedure >250 seconds. A TR Band was successful obtaining hemostatsis at the Right Radial artery insertion site. Post Procedure: Pulses reassessed and unchanged. PERRLA. Strong, equal hand securities supervisor bilaterally. No VTE prophylaxis required. Total IV fluids: 54 mL. Medication's Wasted: Lidocaine 1% = 8 mL. Medication's Wasted: Nitro = 49.4 mg. Medication's Wasted: Heparin = 1000 units. Contrast type used: Omnipaque 300 mgI/mL, 500 mL bottle. Complications: None. Post-op diagnosis: CAD. PCI Indication: NSTE. Estimated blood loss: 5mL-10mL. Responsiveness - Normal response to verbal stimuli; alert and oriented, PERRLA. Airway - Unaffected, no intervention required; spontaneous ventilation. Circulation: W/N/L, pulses unchanged. Nausea/Vomiting: No. Procedure completed. Vital chart was stopped. Patient transferred by wheelchair to 1st floor. Access Site Site: Right Radial artery Sheath Size: 6 Fr Hemostasis Method: TR Band Hemostasis Success: Successful Procedure Medications Start: 8:35 AM Stop: 8:35 AM Medication: Versed Amount: 1 mg Route: I.V. Start: 8:35 AM Stop: 8:35 AM Medication: Fentanyl Amount: 50 mcg Route: I.V. Start: 8:36 AM Stop: 8:36 AM Medication: Benadryl Amount: 50 mg Route: I.V. Start: 8:46 AM Stop: 8:46 AM Medication: Heparin Amount: 5000 units Route: I.V. Start: 8:54 AM Stop: 8:54 AM Medication: Versed Amount: 1 mg Route: I.V. Start: 9:03 AM Stop: 9:03 AM Medication: Nitrogylcerin Amount: 300 mcg Route: I.A. Start: 8:44 AM Stop: 8:44 AM Medication: Nitrogylcerin Amount: 200 mcg Route: I.A. Start: 9:04 AM Stop: 9:04 AM Medication: Versed 1 mg and Fentanyl 25 mcg Amount: 1 Route: I.V. Start: 9:07 AM Stop: 9:07 AM Medication: Heparin Amount: 5000 units Route: I.V. Start: 9:10 AM Stop: 9:10 AM Medication: Versed Amount: 1 mg Route: I.V. Start: 9:12 AM Stop: 9:12 AM Medication: Fentanyl Amount: 25 mcg Route: I.V. Start: 9:15 AM Stop: 9:15 AM Medication: Hydralazine Amount: 10 mg Route: I.V. Start: 9:19 AM Stop: 9: AM Medication: Versed Amount: 1 mg Route: I.V. Start: 9: AM Stop: 9: AM Medication: Nitrogylcerin Amount: 300 mcg Route: I.C. Start: 9:20 AM Stop: 9:20 AM Medication: Hydralazine Amount: 10 mg Route: I.V. Start: 9:25 AM Stop: 9:25 AM Medication: Plavix Amount: 300 mg Route: P.O. I, the attending physician, have reviewed and verified all procedure medications. Yes, all medications given per verbal order History/Risk Factors Hypertension: Yes Dyslipidemia: Yes Peripheral Arterial Disease (PAD): No Myocardial Infarction (MN): No Obesity: No Renal Disease: No Tobacco Use: Current/Recent(w/in 1 year) Prior Interventions PCI: Yes CABG: No Valve Surgery: No Date of PCI: 02/26/2021 Report Signatures Finalized by Dalton Stephenson MD on 02/15/2022 12:06 AM
--- NOTE | 2022-02-03 08:35 | W.PM.OPSUD ---
Surgery/Procedure H&P Update DATE OF PROCEDURE: February 03, 2022 DATE H&P PERFORMED: 02/02/22 H&P UPDATE INFORMATION: I have reviewed H&P completed within last 30 days, I have examined patient prior to procedure and No changes to prior documentation PREOP DIAGNOSIS: Unstable angina PRIMARY INDICATION FOR PROCEDURE: Unstable angina PLANNED PROCEDURE: Left heart cath with possible percutaneous coronary intervention PATIENT REASSESSED PRIOR TO SEDATION, WITH NO CHANGE NOTED: Yes PHYSICAL EXAM: alert, oriented x 3, clear to auscultation bilaterally and regular rate & rhythm AIRWAY EVAL/ANESTHESIA PLAN: ASA III, Monitored Anesthesia, Local Anesthesia, Risks, benefits & alternatives of sedation and/or procedure discussed and Patient agrees to continue as planned
[2022-02-03] MEDS: gabapentin 300 mg Capsule PO ×3 (09:59→20:46)
[2022-02-03] MEDS: aspirin 81 mg EC Tablet PO (10:00)
[2022-02-03] MEDS: dilTIAZem ER (24HR) 120 mg Capsule 240 MG PO (10:00)
[2022-02-03] MEDS: tamsulosin 0.4 mg Capsule PO (10:00)
[2022-02-03] MEDS: sertraline 50 mg Tablet 25 MG PO (10:00)
[2022-02-03] MEDS: lisinopril 20 mg Tablet PO ×2 (10:00→18:07)
[2022-02-03] MEDS: pantoprazole DR 40 mg Tablet PO (10:00)
[2022-02-03] MEDS: hydroCHLOROthiazide 25 mg Tablet PO (10:00)
[2022-02-03] MEDS: isosorbide mononitrate ER 30 mg Tablet PO ×2 (10:01→18:07)
[2022-02-03] MEDS: potassium chloride ER 20 mEq Tablet 40 MEQ PO (10:01)
--- NOTE | 2022-02-03 10:15 | PC.CHAP ---
Pastoral Care Encounter/Spiritual Assessment Type of Contact [] Declined pilot captain visit [] Patient/Family/Request visit [] Outpatient visit [] Follow-up visit [] Physician referral [] Code/Alert [x] Routine visit [] Staff referral [] Actively dying [] Patient sleeping [] Family support [] [x] Out of room [] Palliative care [] [] Receiving care in room [] Pre-surgical visit [] Trauma [] Long length of stay [x] ICU visit [] Other: Relational/Emotional Strength [] Patient feels connected with others/family/visitors/staff [] Distress [] Loneliness/isolation [] Abandonment Spirituality of Patient [] Person of Leny [] Attends Yazidi of their Leny [] Believes in Prayer [] Reads Bible or Orthodox materials [] There are Spiritual issues to be addressed Cinetechnician Interventions [x] Prayer [] Active listening [] Non-anxious presence [] Spiritual/emotional support [] Crisis/trauma care [] Spiritual counseling [] Bereavement support [] Provided bereavement packet [] Provided Bible/devotional materials [] Provided toy/stuffed animal, coloring book to patient or family member [] Provided Communion [] Anointing/[place] [] Salvation [x] Completed spiritual assessment [] Other: Impact on Illness or Injury [] Angry [] Fearful [] Anxious [] Often cries [] Exhaustion [] Unable to work [] Unable to attend judaism [] Unable to walk/stand [] Unable to read [] Unable to drive [] Unable to eat/drink [] Unable to sleep [] Unable to be with family [] Patient intubated [] Other: Summary Time spent with patient
[2022-02-03 10:35] LABS: Basophils # 0.1 10^3/uL (0.0-0.1); Basophils % 0.6 %; Eosinophils # 0.1 10^3/uL (0.0-0.8); Eosinophils % 0.8 %; Hematocrit 49.5 % (42.0-52.0); Hemoglobin 16.7 g/dL (11.7-16.6); Lymphocytes # 4.4 10^3/uL (0.8-4.8); Lymphocytes % 30.2 %; Mean Corpuscular HGB Conc 33.7 g/dL (30.0-36.0); Mean Corpuscular Hemoglobin 32.1 pg (28.0-34.0); Mean Corpuscular Volume 95.2 fl (80-94); Mean Platelet Volume 10.5 fL (7.4-10.4); Monocytes # 0.8 10^3/uL (0.2-0.9); Monocytes % 5.6 %; Neutrophils # 9.03 10^3/uL (1.8-7.7); Neutrophils % 62.2 %; Nucleated Red Blood Cells % 0 %; Platelet Count 167 10^3/cmm (130-400); Red Cell Distribution Width 13.6 % (12.1-15.1); White Blood Count 14.5 10^3/uL (4.0-10.0)
--- NOTE | 2022-02-03 12:00 | P.PN_ITS ---
Subjective Subjective: Patient is doing well. No chest pain. he underwent coronary angiogram this AM that showed severe mid and distal RCA stenosis. he underwent successful revascularization with TING X 1 to mid RCA and balloon angioplasty of the distal RCA Vitals/I&O/Wt Last Vital Signs Temp 98.2 F 02/03/22 10:00 Pulse 80 02/03/22 11:35 Resp 16 02/03/22 11:35 BP 181/110 02/03/22 10:00 Pulse Ox 93 02/03/22 11:35 02/02/22 02/03/22 02/03/22 22:59 06:59 14:59 Intake Total 386.1 / 593.7 291.425 / 885.125 51.2 / 51.2 Output Total 650 / 1050 300 / 1350 Balance -263.9 / -456.3 -8.575 / -464.875 51.2 / 51.2 Weight last 48 hrs Weight 223 lb 8 oz Weight 235 lb Physical Exam Narrative: GENERAL: Patient is alert, awake and oriented x3. [] NECK: No jugular vein distension. [] HEENT: No cyanosis. No icterus. No pallor. [] HEART: Regular S1 and S2. No murmur, rub or gallop. [] LUNGS: Clear to auscultate bilaterally. [] ABDOMEN: Soft, nontender and nondistended. Positive bowel sounds. No guarding, rebound or tenderness. [] CENTRAL NERVOUS SYSTEM: Grossly nonfocal. [] EXTREMITIES: Lower extremities with 1+ edema bilaterally. Pulses palpable in the lower extremities, both dorsalis pedis and posterior tibial. [] Data : 02/03/22 10:23 02/03/22 02:36 A&P Assessment and plan (1) Chest pain: Concerning for unstable angina Status: Acute (2) Tobacco abuse: Status: Acute (3) HTN (hypertension): Status: Acute (4) ASHD (arteriosclerotic heart disease): Status: Acute (5) Diabetes: Status: Acute (6) CVA (cerebral vascular accident): Status: Acute (7) COPD (chronic obstructive pulmonary disease): Status: Acute Plan Patient has presented with elevated blood pressure and typical chest pain symptoms concerning for unstable angina. He has significant CAD history. Currently chest pain is controlled with nitro drip. Troponin is normal. ECHO shows normal LV function Patient had severe mid RCA and distal RCA. Distal RCA treated with balloon angioplasty. Mid RCA treated with TING x1 . LCx is small sized, diffusely diseased vessel. Will be treated medically. Continue nitroglycerin drip. Uptitrating cardizem to 240mg daily. Continue lisinopril. HCTZ also started. Appreciate hospitalist team input for treatment of medical issues Attestations Medical Necessity Statement*: Care expected to cross 2 midnights. Coding Level of Care Code Acute Carding Machine Feeder for [facility] Fwd Diagnoses Chest pain R07.9 Tobacco abuse Z72.0 HTN (hypertension) I10 ASHD (arteriosclerotic heart disease) I25.10 Diabetes E11.9 CVA (cerebral vascular accident) I63.9 COPD (chronic obstructive pulmonary disease) J44.9
[2022-02-03 12:20] LABS: Glucose Point of Care 148 mg/dL (70-110)
[2022-02-03] MEDS: LORazepam 2 mg/mL INJ 1 mL 0.5 MG IVP (13:32)
--- NOTE | 2022-02-03 13:44 | PC.NURSE ---
Patient rests and becomes disoriented upon waking. Patient easily reoriented verbally. Bed alarm set and appreciated.
[2022-02-03] MEDS: dexmedeTOMIDine 0.9 % NaCL 400 MCG/100 ML PREMIX IV ×2 (14:27→18:43)
--- NOTE | 2022-02-03 17:56 | PM.PN ---
Subjective Subjective: Becoming restless, climbing out of bed, confused after angiogram procedure. Impulsive behavior. Pulled out his IV. Received Ativan, but without improvement. Had to be started on Precedex. Currently lethargic sitting up in chair. Sister at bedside. Discussed with her and with cardiology. He is on a number of medications at home which could contribute to mental status changes if either in overdose or abrupt discontinuation. Discussed with her she states he told her that he takes his medications well. She went home and checked his pill landscape architect and planner, which she says is full, starting on Thursday, but she is not sure whether he had filled it ahead of time, or whether he had missed a week of the medications. His blood pressures have been running high as well. With history of alcohol intake in the past, but states has not drank in a long time. Some possible more history of recreational drug use, but none in a while per sister. Discussed UA yesterday not suggestive of UTI. CTA x-ray not suggestive of pneumonia. CT head unremarkable. Previously had some difficulties communicating thoughts, today he is quite verbal, but confused. Currently lethargic, on waking up cannot tell me the year, tells me in [place], as he was mumbling something incomprehensible. Sister reports intermittently startles. Sister reports he had recently picked up smoking. Discussed with her also he was started on treatment for possible syphilis. Vitals/I&O/Wt Last Vital Signs Temp 98.2 F 02/03/22 10:00 Pulse 84 02/03/22 15:39 Resp 15 02/03/22 15:39 BP 115/70 02/03/22 15:00 Pulse Ox 93 02/03/22 15:39 02/03/22 02/03/22 02/03/22 06:59 14:59 22:59 Intake Total 291.425 / 885.125 51.2 / 51.2 Output Total 300 / 1350 Balance -8.575 / -464.875 51.2 / 51.2 Weight last 48 hrs Weight 101.378 kg Weight 106.594 kg Physical Exam Narrative: Up in chair. Sister accompanying him in the room. Const: COMMON NORMALS: negative for alert GENERAL APPEARANCE: cooperative and lethargic ORIENTATION/CONSCIOUSNESS: Yes lethargic HENMT: COMMON NORMALS: normocephalic, EAC's normal, Normal external nose present and moist oral mucous membranes HEAD & SCALP: normocephalic NOSE: Normal external nose present EXTERNAL AUDITORY CANAL: EAC's normal OTHER: Pupils reactive to light Neck/C-Spine: COMMON NORMALS: no meningeal signs Chest: CHEST: Yes Symmetrical chest wall rise Resp: COMMON NORMALS: clear to auscultation bilaterally AUSCULTATION: clear to auscultation bilaterally Cardio: COMMON NORMALS: regular rate, regular rhythm and No murmurs present (Cardio) RATE: regular rate RHYTHM: regular rhythm GI: COMMON NORMALS: Normal to inspection, nondistended, normoactive bowel sounds present, Soft to palpation and non-tender PALPATION: Yes Soft to palpation Extremity: COMMON NORMALS: no pedal edema Neuro: COMMON NORMALS: moves all extremities SENSORIUM/ORIENTATION: No alert and Yes lethargic MENINGEAL SIGNS: Yes no meningeal signs OTHER: No rigidity Psych: COMMON NORMALS: mental status grossly normal Skin: COMMON NORMALS: no wounds RASHES: no rashes Data : 02/03/22 10:23 02/03/22 02:36 Micro: Microbiology 02/03/22 11:41 C.difficile Toxin B Gene (PCR) - Final Stool A&P Assessment and plan (1) Acute encephalopathy: Acute encephalopathy of unclear etiology. Some difficulties with expressing his thoughts yesterday, today sister states talking plenty , but confused. During my visit lethargic. She reports startles easily. She is moving all extremities, does not appear to have focal abnormality at this time, although cannot examine in detail. Appears to have possibly acute metabolic encephalopathy. She denies history of recent alcohol intake, does have a remote history of alcohol use. Possibly some remote history of drug use. She is not entirely sure whether he takes any medications, but he states he has been taking his medications, his pill landscape architect and planner was filled at home, although she is not sure whether he had filled it ahead of time, or missed a week of medications. Discussed with her we are for now continue lower doses of her medications, sertraline, resume at lower dose of mirtazapine. Continuing on gabapentin. At home he also takes lorazepam for anxiety, although he received it but without improvement. Continue Precedex for now. Continue optimization of hypertension as could have hypertensive encephalopathy as well. Currently unable to get MRI. No suggestion at this time of acute infection, although with possibility of syphilis for which receiving ceftriaxone, otherwise UA, CTA chest,no integumentary infection. In case of protracted encephalopathy discussed consideration of LP Target SPO2 88 To 90% with COPD. Follow-up ABG. With remote history of alcohol intake we will check ammonia as well. Discussed possibility of protracted effect of anesthesia after angiogram. He is appearing to be oriented x3 although lethargic and otherwise confused. No rigidity. Continue supportive care. Add nicotine patch. Status: Acute (2) Chest pain: Severe CAD with severe mid and distal RCA stenosis, with TING deployed to mid RCA, balloon angioplasty of distal RCA. Status: Acute (3) Tobacco abuse: Add nicotine patch. Status: Acute (4) HTN (hypertension): Continues on nitro drip. Status: Acute (5) ASHD (arteriosclerotic heart disease): Status post revascularization of severe stenosis of the mid and distal RCA, with TING to mid RCA. Balloon angioplasty of distal RCA. Continue Plavix, aspirin. Imdur. Check CK Status: Acute (6) Diabetes: Status: Acute (7) CVA (cerebral vascular accident): History of Status: Acute (8) COPD (chronic obstructive pulmonary disease): Continue nebs. Doing well on 2 L nasal cannula. I do not hear wheezing currently. Status: Acute Plan Unstable angina: Status post revascularization of severe stenosis of the mid and distal RCA, with TING to mid RCA. Balloon angioplasty of distal RCA. Continue Plavix, aspirin. Imdur. 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 Follow up w ID. FTA resent. RPR repeat positive. Attestations Medical Necessity Statement*: Continue admission for assessment management of acute encephalopathy, optimization of control of hypertension, status post PCI of severe stenosis of RCA Coding Level of Care Code Acute Instructional Designer for [facility] Fwd Diagnoses Chest pain R07.9 Tobacco abuse Z72.0 HTN (hypertension) I10 ASHD (arteriosclerotic heart disease) I25.10 Diabetes E11.9 CVA (cerebral vascular accident) I63.9 COPD (chronic obstructive pulmonary disease) J44.9 Acute encephalopathy G93.40
[2022-02-03 18:15] LABS: Glucose Point of Care 149 mg/dL (70-110)
[2022-02-03 18:47] LABS: ABG PCO2 32.9 mmHg (35-45); ABG PH Result 7.46 (7.35-7.45); Arterial Blood Gas Hematocrit 47.1 % (42-52); Base Excess ABG 0.2 mmol/L (-2.0-2.0); Blood Gas Allen Test Pos; Blood Gas Operator Identificat CAK; Blood Gas Sample Site Radial, left; Blood Gas Sample Type Arterial; HCO3 ABG 23.3 mmol/L (22-26); Oxygen Device NC; PO2 ABG 73.3 mmHg (80.0-100.0)
[2022-02-03 19:34] LABS: Ammonia 33 umol/L (16-60)
[2022-02-03] MEDS: mirtazapine 15 mg Tablet 3.75 MG PO (20:46)
[2022-02-03] MEDS: cefTRIAXone 2,000 MG in sodium chloride 0.9% (plus) 50 ML 100 MG IV (20:47)
[2022-02-03 23:09] LABS: Glucose Point of Care 128 mg/dL (70-110)
[2022-02-04] VITALS (53 sets, daily range): BP systolic 101–185; BP diastolic 51–106; PULSE 52–89; RESP 12–20; TEMP 36.5–37; O2SAT 78–99
[2022-02-04] MEDS: nitroglycerin drip 50 MG/250 ML PREMIX 15 MG IV (02:01)
[2022-02-04 03:54] LABS: Basophils # 0.1 10^3/uL (0.0-0.1); Basophils % 0.6 %; Eosinophils # 0.3 10^3/uL (0.0-0.8); Eosinophils % 2.4 %; Hematocrit 45.4 % (42.0-52.0); Hemoglobin 14.8 g/dL (11.7-16.6); Lymphocytes # 3.7 10^3/uL (0.8-4.8); Lymphocytes % 34.3 %; Mean Corpuscular HGB Conc 32.6 g/dL (30.0-36.0); Mean Corpuscular Volume 98.3 fl (80-94); Mean Platelet Volume 9.9 fL (7.4-10.4); Monocytes # 0.8 10^3/uL (0.2-0.9); Monocytes % 7.7 %; Neutrophils # 5.93 10^3/uL (1.8-7.7); Neutrophils % 54.6 %; Nucleated Red Blood Cells % 0 %; Platelet Count 180 10^3/cmm (130-400); Red Blood Count 4.62 10^6/uL (4.1-5.3); Red Cell Distribution Width 13.8 % (12.1-15.1); White Blood Count 10.8 10^3/uL (4.0-10.0)
[2022-02-04 04:15] LABS: Alanine Aminotransferase 26 U/L (0-41); Albumin Level 3.3 g/dL (3.5-5.2); Alkaline Phosphatase 70 IU/L (40-130); Blood Urea Nitrogen 15 mg/dL (8-23); Calcium 8.5 mg/dL (8.5-10.5); Carbon Dioxide 23 mmol/L (22-29); Chloride 104 mmol/L (98-107); Globulin 2.7 g/dL (1.3-4.6); Glucose 102 mg/dL (65-115); Osmolality Calculated 287 mOsm/kg (285-295); Phosphorus 2.8 mg/dL (2.5-4.5); Sodium 138 mmol/L (136-145); Total Bilirubin 0.8 mg/dL (0.15-1.2)
[2022-02-04 04:17] LABS: Anion Gap 14.7 (5-19); Aspartate Amino Transferase 47 U/L (0-40); Potassium 3.7 mmol/L (3.5-5.1)
[2022-02-04 04:18] LABS: Creatine Phosphokinase 560 U/L (39-308)
[2022-02-04 07:06] LABS: Glucose Point of Care 109 mg/dL (70-110)
[2022-02-04] MEDS: nicotine 21 mg Patch 1 PATCH TRANSDERMA (08:06)
[2022-02-04] MEDS: isosorbide mononitrate ER 30 mg Tablet PO ×2 (08:06→17:28)
[2022-02-04] MEDS: dilTIAZem ER (24HR) 120 mg Capsule 240 MG PO (08:06)
[2022-02-04] MEDS: lisinopril 20 mg Tablet PO ×2 (08:07→17:28)
[2022-02-04] MEDS: pantoprazole DR 40 mg Tablet PO (08:07)
[2022-02-04] MEDS: tamsulosin 0.4 mg Capsule PO (08:07)
[2022-02-04] MEDS: sertraline 50 mg Tablet 25 MG PO (08:07)
[2022-02-04] MEDS: aspirin 81 mg EC Tablet PO (08:07)
[2022-02-04] MEDS: hydroCHLOROthiazide 25 mg Tablet PO (08:07)
[2022-02-04] MEDS: clopidogrel 75 mg Tablet PO (08:07)
[2022-02-04] MEDS: gabapentin 300 mg Capsule PO ×3 (08:07→20:16)
--- NOTE | 2022-02-04 08:35 | PC.NURSE ---
Patient up to chair, A&Ox4 so far thus shift. Cant remember anything from previous shifts. Watching TV at this time asking about family
[2022-02-04] MEDS: budesonide 0.5 mg/2 mL Neb INHALATION ×2 (08:47→19:57)
--- NOTE | 2022-02-04 09:31 | P.PN_ITS ---
Subjective Subjective: Patient is doing well. No complaints of chest pain or shortness of breath. Vitals/I&O/Wt Last Vital Signs Temp 98.6 F 02/04/22 03:30 Pulse 73 02/04/22 08:58 Resp 17 02/04/22 08:47 BP 122/63 02/04/22 08:30 Pulse Ox 98 02/04/22 08:47 02/03/22 02/04/22 02/04/22 22:59 06:59 14:59 Intake Total 77.412 / 128.612 215.275 / 033.643 4743.908 / 1406.908 Output Total 300 / 300 Balance 77.412 / 128.612 -84.725 / 43.887 1406.908 / 1406.908 Weight last 48 hrs Weight 223 lb 8 oz Weight 235 lb Physical Exam Narrative: GENERAL: Patient is alert, awake and oriented x3. [] NECK: No jugular vein distension. [] HEENT: No cyanosis. No icterus. No pallor. [] HEART: Regular S1 and S2. No murmur, rub or gallop. [] LUNGS: Clear to auscultate bilaterally. [] ABDOMEN: Soft, nontender and nondistended. Positive bowel sounds. No guarding, rebound or tenderness. [] CENTRAL NERVOUS SYSTEM: Grossly nonfocal. [] EXTREMITIES: Lower extremities with 1+ edema bilaterally. Pulses palpable in the lower extremities, both dorsalis pedis and posterior tibial. [] Data : 02/04/22 10:00 02/04/22 03:44 Micro: Microbiology 02/03/22 11:41 C.difficile Toxin B Gene (PCR) - Final Stool A&P Assessment and plan (1) Chest pain: Status: Acute (2) Tobacco abuse: Status: Acute (3) HTN (hypertension): Status: Acute (4) ASHD (arteriosclerotic heart disease): Status: Acute (5) Diabetes: Status: Acute (6) CVA (cerebral vascular accident): Status: Acute (7) COPD (chronic obstructive pulmonary disease): Status: Acute Plan Patient has presented with elevated blood pressure and typical chest pain symptoms concerning for unstable angina. He has significant CAD history. Patient is chest pain free now Mental status has improved. Blood pressure is well controlled now ECHO shows normal LV function Patient had severe mid RCA and distal RCA. Distal RCA treated with balloon angioplasty. Mid RCA treated with TING x1 . LCx is small sized, diffusely d iseased vessel. Will be treated medically. Blood pressure is better controlled. On Cardizem 240 mg, HCTZ 25mg daily, lisinopril 20mg BID. Will start hydralazine 25mg tid Appreciate hospitalist team input for treatment of medical issues Attestations Medical Necessity Statement*: Care expected to cross 2 midnights. Patient presented with hypertensive urgency, unstable angina and underwent successful revascularization of the mid RCA yesterday Coding Level of Care Code Acute Paper Sorter for [facility] Fwd Diagnoses Chest pain R07.9 Tobacco abuse Z72.0 HTN (hypertension) I10 ASHD (arteriosclerotic heart disease) I25.10 Diabetes E11.9 CVA (cerebral vascular accident) I63.9 COPD (chronic obstructive pulmonary disease) J44.9
[2022-02-04 10:06] LABS: Basophils # 0.1 10^3/uL (0.0-0.1); Basophils % 0.4 %; Eosinophils # 0.2 10^3/uL (0.0-0.8); Eosinophils % 1.4 %; Hematocrit 45.6 % (42.0-52.0); Hemoglobin 14.8 g/dL (11.7-16.6); Lymphocytes # 3.5 10^3/uL (0.8-4.8); Lymphocytes % 27.5 %; Mean Corpuscular HGB Conc 32.5 g/dL (30.0-36.0); Mean Corpuscular Hemoglobin 32.1 pg (28.0-34.0); Mean Corpuscular Volume 98.9 fl (80-94); Mean Platelet Volume 9.8 fL (7.4-10.4); Monocytes # 0.9 10^3/uL (0.2-0.9); Neutrophils # 8.04 10^3/uL (1.8-7.7); Neutrophils % 63.3 %; Nucleated Red Blood Cells % 0 %; Platelet Count 176 10^3/cmm (130-400); Red Blood Count 4.61 10^6/uL (4.1-5.3); Red Cell Distribution Width 13.7 % (12.1-15.1); White Blood Count 12.7 10^3/uL (4.0-10.0)
--- NOTE | 2022-02-04 10:29 | PC.CHAP ---
Pastoral Care Encounter/Spiritual Assessment Type of Contact [] Declined automatic embroidery machine tender visit [] Patient/Family/Request visit [] Outpatient visit [] Follow-up visit [] Physician referral [] Code/Alert [x] Routine visit [] Staff referral [] Actively dying [] Patient sleeping [] Family support [] [] Out of room [] Palliative care [] [x] Receiving care in room [] Pre-surgical visit [] Trauma [] Long length of stay [x] ICU visit [] Other: Relational/Emotional Strength [] Patient feels connected with others/family/visitors/staff [] Distress [] Loneliness/isolation [] Abandonment Spirituality of Patient [] Person of Leny [] Attends Restorationism of their Leny [] Believes in Prayer [] Reads Bible or Gnosticism materials [] There are Spiritual issues to be addressed Bracelet Form Coverer Interventions [x] Prayer [] Active listening [] Non-anxious presence [] Spiritual/emotional support [] Crisis/trauma care [] Spiritual counseling [] Bereavement support [] Provided bereavement packet [] Provided Bible/devotional materials [] Provided toy/stuffed animal, coloring book to patient or family member [] Provided Communion [] Anointing/[place] [] Salvation [x] Completed spiritual assessment [] Other: Impact on Illness or Injury [] Angry [] Fearful [] Anxious [] Often cries [] Exhaustion [] Unable to work [] Unable to attend druze [] Unable to walk/stand [] Unable to read [] Unable to drive [] Unable to eat/drink [] Unable to sleep [] Unable to be with family [] Patient intubated [] Other: Summary Time spent with patient
[2022-02-04 11:37] LABS: Glucose Point of Care 115 mg/dL (70-110)
[2022-02-04] MEDS: enoxaparin 40 mg/0.4 mL Syringe SUBCUT (12:44)
--- NOTE | 2022-02-04 14:12 | PC.NURSE ---
Patient off of all gtts. Patient alert and orientated x4.
[2022-02-04] MEDS: acetaminophen 325 mg Tablet 650 MG PO ×2 (15:37→23:42)
--- NOTE | 2022-02-04 17:02 | PM.PN ---
Subjective Subjective: Today he is alert and awake. He reports that he remembers episode of confusion yesterday. He is feeling much better. Does frequently go off on tangents, making discussion difficult, however, we discussed with him regarding elevated blood pressure, still on nitroglycerin drip this morning, attempt to wean off, assessment by PT given patient's reported gait difficulties recently, as well as deconditioning. He does report that he has been walking less recently, brings up also not taking stairs, choosing elevator instead for example. Discussed empiric treatment for possible syphilis infection and follow-up with ID, he verbalized agreement. States his ex- was his only partner for a long time. She had recently left. Vitals/I&O/Wt Last Vital Signs Temp 98.6 F 02/04/22 03:30 Pulse 76 02/04/22 15:10 Resp 18 02/04/22 15:00 BP 135/74 02/04/22 14:30 Pulse Ox 95 02/04/22 15:00 02/04/22 02/04/22 02/04/22 06:59 14:59 22:59 Intake Total 215.275 / 089.052 3876.358 / 1779.358 Output Total 300 / 300 200 / 200 Balance -84.725 / 43.887 1579.358 / 1579.358 Weight last 48 hrs Weight 101.378 kg Physical Exam Narrative: Up in chair. Sister accompanying him in the room. Const: COMMON NORMALS: negative for alert GENERAL APPEARANCE: cooperative and lethargic ORIENTATION/CONSCIOUSNESS: Yes lethargic HENMT: COMMON NORMALS: normocephalic, EAC's normal, Normal external nose present and moist oral mucous membranes HEAD & SCALP: normocephalic NOSE: Normal external nose present EXTERNAL AUDITORY CANAL: EAC's normal OTHER: Pupils reactive to light Neck/C-Spine: COMMON NORMALS: no meningeal signs Chest: CHEST: Yes Symmetrical chest wall rise Resp: COMMON NORMALS: clear to auscultation bilaterally AUSCULTATION: clear to auscultation bilaterally Cardio: COMMON NORMALS: regular rate, regular rhythm and No murmurs present (Cardio) RATE: regular rate RHYTHM: regular rhythm GI: COMMON NORMALS: Normal to inspection, nondistended, normoactive bowel sounds present, Soft to palpation and non-tender PALPATION: Yes Soft to palpation Extremity: COMMON NORMALS: no pedal edema Neuro: COMMON NORMALS: moves all extremities SENSORIUM/ORIENTATION: No alert and Yes lethargic MENINGEAL SIGNS: Yes no meningeal signs OTHER: No rigidity Psych: COMMON NORMALS: mental status grossly normal Skin: COMMON NORMALS: no wounds RASHES: no rashes Data : 02/04/22 10:00 02/04/22 03:44 Micro: Microbiology 02/03/22 11:41 C.difficile Toxin B Gene (PCR) - Final Stool A&P Assessment and plan (1) HTN (hypertension): Weaned off nitro drip. Blood pressures better. Continue oral medications, if able to control blood pressures, no need for parenteral agents, may be able to leave the hospital. Continue Cardizem, HCTZ, Imdur, lisinopril. Labetalol as needed. IVF stopped. Status: Acute (2) Acute encephalopathy: Appears to have resolved. Weaned off Precedex drip. He is awake, alert, conversant. Feeling much better. Continue his medications as currently, and if doing well, consider escalation back to his home doses. Discussed with him continued optimization of control of hypertension. Weaning off nitroglycerin drip. Discussed with him also he is currently on empiric treatment of possible syphilis, discussed with him continuation of empiric therapy and will need ID follow-up. No suggestion at this time of acute infection, although with possibility of syphilis for which receiving ceftriaxone, otherwise UA, CTA chest,no integumentary infection. In case of protracted encephalopathy discussed consideration of LP Target SPO2 88 To 90% with COPD. ABG without hypercapnia. With remote history of alcohol intake. Normal ammonia. Discussed possibility of protracted effect of anesthesia after angiogram. Continue supportive care. Nicotine patch. PT assessment. He has recently been more deconditioned from the sound of it. Sister reports some difficulties with gait. Status: Acute (3) Chest pain: Severe CAD with severe mid and distal RCA stenosis, with TING deployed to mid RCA, balloon angioplasty of distal RCA. Status: Acute (4) Tobacco abuse: Add nicotine patch. He does not want to quit smoking. Status: Acute (5) ASHD (arteriosclerotic heart disease): Status post revascularization of severe stenosis of the mid and distal RCA, with TING to mid RCA. Balloon angioplasty of distal RCA. Continue Plavix, aspirin. Imdur. Check CK Status: Acute (6) Diabetes: Status: Acute (7) CVA (cerebral vascular accident): History of Status: Acute (8) COPD (chronic obstructive pulmonary disease): Continue nebs. Doing well on 2 L nasal cannula. I do not hear wheezing currently. Status: Acute Plan Unstable angina: Status post revascularization of severe stenosis of the mid and distal RCA, with TING to mid RCA. Balloon angioplasty of distal RCA. Continue Plavix, aspirin. Imdur. Mild elevation of CK. Once resolved, consider addition of statin. 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 Follow up w ID. FTA resent. RPR repeat positive. Attestations Medical Necessity Statement*: Continue admission for optimization of control of hypertension. Disposition planning. Coding Level of Care Code Acute Event Technician for [facility] Fwd Diagnoses Acute encephalopathy G93.40 Chest pain R07.9 Tobacco abuse Z72.0 HTN (hypertension) I10 ASHD (arteriosclerotic heart disease) I25.10 Diabetes E11.9 CVA (cerebral vascular accident) I63.9 COPD (chronic obstructive pulmonary disease) J44.9
[2022-02-04 17:25] LABS: Glucose Point of Care 110 mg/dL (70-110)
[2022-02-04] MEDS: mirtazapine 15 mg Tablet 3.75 MG PO (20:16)
[2022-02-04] MEDS: cefTRIAXone 2,000 MG in sodium chloride 0.9% (plus) 50 ML 100 MG IV (20:21)
[2022-02-04 20:45] LABS: Glucose Point of Care 121 mg/dL (70-110)
[2022-02-04] MEDS: fluticasone nasal spray 16gm Btl 2 SPRAY NASAL (22:38)
[2022-02-04] MEDS: zolpidem 5 mg Tablet PO (23:53)
[2022-02-05] VITALS (14 sets, daily range): BP systolic 111–176; BP diastolic 60–109; PULSE 64–110; RESP 14–25; TEMP 36.3–36.8; O2SAT 92–93
--- NOTE | 2022-02-05 | PC.NURSE ---
Physician Communication At 2220, patient complaining of nasal congestion and requesting flonase. Dr. Nguyen contacted and order received for flonase 2 sprays in each nare PRN daily. Additionally, at 2350, patient requested something to help him rest. Dr. Nguyen contacted and order received for 5 mg Ambien PO once. For both instances, see MAR for medication administration.
[2022-02-05 02:47] LABS: Basophils # 0.1 10^3/uL (0.0-0.1); Basophils % 0.7 %; Eosinophils # 0.4 10^3/uL (0.0-0.8); Eosinophils % 3.3 %; Hematocrit 46.3 % (42.0-52.0); Hemoglobin 15.6 g/dL (11.7-16.6); Lymphocytes # 3.9 10^3/uL (0.8-4.8); Lymphocytes % 35.3 %; Mean Corpuscular HGB Conc 33.7 g/dL (30.0-36.0); Mean Corpuscular Hemoglobin 31.9 pg (28.0-34.0); Mean Corpuscular Volume 94.7 fl (80-94); Mean Platelet Volume 10.1 fL (7.4-10.4); Monocytes % 9.2 %; Neutrophils # 5.64 10^3/uL (1.8-7.7); Neutrophils % 51.1 %; Nucleated Red Blood Cells % 0 %; Platelet Count 188 10^3/cmm (130-400); Red Blood Count 4.89 10^6/uL (4.1-5.3); Red Cell Distribution Width 13.3 % (12.1-15.1)
[2022-02-05] MEDS: LORazepam 2 mg/mL INJ 1 mL 0.5 MG IVP (03:06)
[2022-02-05 03:09] LABS: Alanine Aminotransferase 29 U/L (0-41); Albumin Level 3.7 g/dL (3.5-5.2); Alkaline Phosphatase 75 IU/L (40-130); Aspartate Amino Transferase 43 U/L (0-40); Blood Urea Nitrogen 12 mg/dL (8-23); Calcium 9.3 mg/dL (8.5-10.5); Carbon Dioxide 24 mmol/L (22-29); Chloride 103 mmol/L (98-107); Globulin 2.9 g/dL (1.3-4.6); Glucose 107 mg/dL (65-115); Magnesium 1.9 mg/dL (1.7-2.3); Osmolality Calculated 288 mOsm/kg (285-295); Phosphorus 2.8 mg/dL (2.5-4.5); Sodium 139 mmol/L (136-145); Total Bilirubin 0.8 mg/dL (0.15-1.2); Total Protein 6.6 g/dL (6.6-8.7)
--- NOTE | 2022-02-05 03:32 | PC.NURSE ---
Patient states I've only slept 30 minutes. I've got a lot on my mind. PRN Ativan given. Patient was on 2 L NC and is now on room air with oxygen saturation of 92 percent. Will continue to monitor.
[2022-02-05 07:20] LABS: Glucose Point of Care 172 mg/dL (70-110)
[2022-02-05] MEDS: sertraline 50 mg Tablet 25 MG PO (08:33)
[2022-02-05] MEDS: clopidogrel 75 mg Tablet PO (08:33)
[2022-02-05] MEDS: nicotine 21 mg Patch 1 PATCH TRANSDERMA (08:33)
[2022-02-05] MEDS: hydroCHLOROthiazide 25 mg Tablet PO (08:33)
[2022-02-05] MEDS: lisinopril 20 mg Tablet PO (08:33)
[2022-02-05] MEDS: aspirin 81 mg EC Tablet PO (08:34)
[2022-02-05] MEDS: dilTIAZem ER (24HR) 120 mg Capsule 240 MG PO (08:34)
[2022-02-05] MEDS: tamsulosin 0.4 mg Capsule PO (08:34)
[2022-02-05] MEDS: pantoprazole DR 40 mg Tablet PO (08:34)
[2022-02-05] MEDS: gabapentin 300 mg Capsule PO (08:34)
[2022-02-05] MEDS: isosorbide mononitrate ER 30 mg Tablet PO (08:34)
[2022-02-05] MEDS: insulin lispro 100 unit/1 mL SUBCUT (08:35)
[2022-02-05] MEDS: potassium chloride oral liq 20 mEq/15 mL UDC 40 MEQ PO (08:56)
[2022-02-05] MEDS: budesonide 0.5 mg/2 mL Neb INHALATION (09:07)
--- NOTE | 2022-02-05 09:36 | PC.CHAP ---
Pastoral Care Encounter/Spiritual Assessment Type of Contact [] Declined bakery products checker visit [] Patient/Family/Request visit [] Outpatient visit [] Follow-up visit [] Physician referral [] Code/Alert [x] Routine visit [] Staff referral [] Actively dying [] Patient sleeping [] Family support [] [] Out of room [] Palliative care [] [] Receiving care in room [] Pre-surgical visit [] Trauma [] Long length of stay [x] ICU visit [] Other: Relational/Emotional Strength [] Patient feels connected with others/family/visitors/staff [] Distress [] Loneliness/isolation [] Abandonment Spirituality of Patient [] Person of Leny [] Attends Mandaeism of their Leny [] Believes in Prayer [] Reads Bible or Rastafari materials [] There are Spiritual issues to be addressed Piece Dyeing Machine Tender Interventions [x] Prayer [] Active listening [] Non-anxious presence [] Spiritual/emotional support [] Crisis/trauma care [] Spiritual counseling [] Bereavement support [] Provided bereavement packet [] Provided Bible/devotional materials [] Provided toy/stuffed animal, coloring book to patient or family member [] Provided Communion [] Anointing/[place] [] Salvation [x] Completed spiritual assessment [] Other: Impact on Illness or Injury [] Angry [] Fearful [] Anxious [] Often cries [] Exhaustion [] Unable to work [] Unable to attend gnosticist [] Unable to walk/stand [] Unable to read [] Unable to drive [] Unable to eat/drink [] Unable to sleep [] Unable to be with family [] Patient intubated [] Other: Summary Time spent with patient
--- NOTE | 2022-02-05 09:48 | PC.SOCIAL ---
IMM update IMM updated with patient. Copy Pg 2 provided. Verbalized an understanding. Initialled, dated, timed, and placed in chart.
--- NOTE | 2022-02-05 10:03 | PM.PN ---
Subjective Subjective: He reports he is doing well. No chest pain or pressure. He is not short of breath. Has gotten up and ambulated in his room. He would like to return home today. Vitals/I&O/Wt Last Vital Signs Temp 97.9 F 02/05/22 00:00 Pulse 77 02/05/22 09:00 Resp 16 02/05/22 09:00 BP 137/109 02/05/22 06:00 Pulse Ox 93 02/05/22 09:00 02/04/22 02/05/22 02/05/22 22:59 06:59 14:59 Intake Total 410 / 2189.358 0 / 2189.358 360 / 360 Output Total 1150 / 1350 1000 / 2350 320 / 320 Balance -740 / 839.358 -1000 / -160.642 40 / 40 Weight last 48 hrs Weight 101.423 kg Physical Exam Narrative: Up in chair. Sister accompanying him in the room. Const: COMMON NORMALS: negative for alert GENERAL APPEARANCE: cooperative and lethargic ORIENTATION/CONSCIOUSNESS: Yes lethargic HENMT: COMMON NORMALS: normocephalic, EAC's normal, Normal external nose present and moist oral mucous membranes HEAD & SCALP: normocephalic NOSE: Normal external nose present EXTERNAL AUDITORY CANAL: EAC's normal OTHER: Pupils reactive to light Neck/C-Spine: COMMON NORMALS: no meningeal signs Chest: CHEST: Yes Symmetrical chest wall rise Resp: COMMON NORMALS: clear to auscultation bilaterally AUSCULTATION: clear to auscultation bilaterally Cardio: COMMON NORMALS: regular rate, regular rhythm and No murmurs present (Cardio) RATE: regular rate RHYTHM: regular rhythm GI: COMMON NORMALS: Normal to inspection, nondistended, normoactive bowel sounds present, Soft to palpation and non-tender PALPATION: Yes Soft to palpation Extremity: COMMON NORMALS: no pedal edema Neuro: COMMON NORMALS: moves all extremities SENSORIUM/ORIENTATION: No alert and Yes lethargic MENINGEAL SIGNS: Yes no meningeal signs OTHER: No rigidity Psych: COMMON NORMALS: mental status grossly normal Skin: COMMON NORMALS: no wounds RASHES: no rashes Data : 02/05/22 02:18 02/05/22 02:18 A&P Assessment and plan (1) HTN (hypertension): Discussed with him, for now we will continue on increased dose of lisinopril, increased dose of diltiazem as well as with new medication HCTZ, and continue on Imdur. He is asked to maintain log of blood pressures, bring to primary care provider's visit as well as first visit with cardiology, and further medication adjustments will be performed there. Weaned off nitro drip. Blood pressures better. Continue oral medications, if able to control blood pressures, no need for parenteral agents, may be able to leave the hospital. Continue Cardizem, HCTZ, Imdur, lisinopril. Labetalol as needed. IVF stopped. Status: Acute (2) Syphilis (acquired): During his hospitalization due to noted progressive neurologic complaints, with history of abnormal syphilis test was started empirically on treatment for possible syphilis infection. Testing has been repeated, RPR positive again. FTA pending. For now we empirically treat and discussed with him he needs to follow-up again with infectious disease specialist. Is going to notify his ex- of possible infection. No aortic aneurysm or dissection on CT. Status: Acute (3) ASHD (arteriosclerotic heart disease): Reinforced importance of continuing to take cardiac medications, particularly Plavix and aspirin after new stent. Status post revascularization of severe stenosis of the mid and distal RCA, with TING to mid RCA. Balloon angioplasty of distal RCA. Follow-up with cardiology in office. Status: Acute (4) Acute encephalopathy: Resolved. Weaned off Precedex drip. He is awake, alert, conversant. Feeling much better. Continue his medications as currently, and if doing well, consider escalation back to his home doses. Discussed with him continued optimization of control of hypertension. Discussed with him also he is currently on empiric treatment of possible syphilis, discussed with him continuation of empiric therapy and will need ID follow-up. ABG without hypercapnia. With remote history of alcohol intake. Normal ammonia. Possibility of protracted effect of anesthesia after angiogram. Continue supportive care. Nicotine patch. PT assessment. He has recently been more deconditioned from the sound of it. Sister reports some difficulties with gait. Home health. Status: Acute (5) Chest pain: Severe CAD with severe mid and distal RCA stenosis, with TING deployed to mid RCA, balloon angioplasty of distal RCA. Status: Acute (6) Tobacco abuse: Add nicotine patch. He does not want to quit smoking. Status: Acute (7) Diabetes: Status: Acute (8) CVA (cerebral vascular accident): History of Status: Acute (9) COPD (chronic obstructive pulmonary disease): Continue nebs. Doing well on room air. I do not hear wheezing currently. Status: Acute Plan Hypokalemia: Mild, replaced. Given additional replacement discharge. Follow-up with primary provider. Unstable angina: Status post revascularization of severe stenosis of the mid and distal RCA, with TING to mid RCA. Balloon angioplasty of distal RCA. Continue Plavix, aspirin. Imdur. Mild elevation of CK. Once resolved, consider addition of statin. Hypertensive urgency resolved Attestations Medical Necessity Statement*: Discharge planning and arrangements with likely return home today. Coding Level of Care Code Acute Student Activities Director for [facility] Fwd Diagnoses HTN (hypertension) I10 Acute encephalopathy G93.40 Chest pain R07.9 Tobacco abuse Z72.0 ASHD (arteriosclerotic heart disease) I25.10 Diabetes E11.9 CVA (cerebral vascular accident) I63.9 COPD (chronic obstructive pulmonary disease) J44.9 Syphilis (acquired) A53.9
[2022-02-05 10:17] LABS: Treponema pallidum Ab REACTIVE (NON-REACTIVE)
--- NOTE | 2022-02-05 10:28 | PM.DCS ---
Discharge Providers Date of Admission: 02/02/22 10:25 Date of Discharge: February 05, 2022 Attending Provider at Admission: Dalton Stephenson M.D Attending Provider at Discharge: Dalton Stephenson M.D Consults: Hospitalist team Primary Care Provider: Bishop Hall MD Diagnoses at Discharge Discharge Diagnosis (1) HTN (hypertension): Status: Acute (2) Syphilis (acquired): Status: Acute (3) ASHD (arteriosclerotic heart disease): Status: Acute (4) Acute encephalopathy: Status: Resolved (5) Chest pain: Details from hospital stay: Unstable angina Status: Resolved (6) Tobacco abuse: Status: Acute (7) Diabetes: (8) CVA (cerebral vascular accident): (9) COPD (chronic obstructive pulmonary disease): Reason for Visit Reason for Visit: Unstable angina/ hypertensive urgency Brief History: 76 year old male with past medical history of coronary artery disease status post multiple stents in the past, COPD, hypertension and diabetes who has been transferred from [facility].? According to patient he started noticing chest pain last night.? He checked his blood pressure and it was around 200 mmHg.? He took 4 nitros however chest pain was not resolving and he decided to call EMS.? EMS gave another nitro and chest pain subsided.? Initial troponin was not significantly elevated.? EKG showed no acute ST-T changes.? Patient again started having chest pain earlier this morning and was put on nitro drip.? He was transferred here for further work-up. Hospital Course Hospital Course 76 year old male with past medical history of coronary artery disease status post multiple stents in the past, COPD, hypertension and diabetes who has been transferred from [facility].? According to patient he started noticing chest pain last night.? He checked his blood pressure and it was around 200 mmHg.? He took 4 nitros however chest pain was not resolving and he decided to call EMS.? EMS gave another nitro and chest pain subsided.? Initial troponin was not significantly elevated.? EKG showed no acute ST-T changes.? Patient again started having chest pain earlier this morning and was put on nitro drip.? He was transferred here for further work-up. Patient was requiring nitroglycerin drip for chest pain control. We performed coronary angiogram that showed severe mid RCA stenosis that underwent successful revascularization with TING x1. He also had significant disease of the left circumflex artery however it was diffuse disease and smaller sized vessel. Medical management for left circumflex artery was decided. For his blood pressure control, dose of his lisinopril and Cardizem was increased. He was also started on hydrochlorothiazide. Blood pressure was well controlled. During the stay hospitalist team was consulted as well as patient had confusion and altered mental status. His syphilis work-up was positive and hospitalist team put him on antibiotics for that. He will be following up with infectious disease. Was briefly put on Precedex. On day of discharge, his mental status improved significantly. He will be closely following with cardiology office for better blood pressure control. Physical Exam Narrative: GENERAL: Patient is alert, awake and oriented x3. [] NECK: No jugular vein distension. [] HEENT: No cyanosis. No icterus. No pallor. [] HEART: Regular S1 and S2. No murmur, rub or gallop. [] LUNGS: Clear to auscultate bilaterally. [] ABDOMEN: Soft, nontender and nondistended. Positive bowel sounds. No guarding, rebound or tenderness. [] CENTRAL NERVOUS SYSTEM: Grossly nonfocal. [] EXTREMITIES: Lower extremities with no edema bilaterally. Pulses palpable in the lower extremities, both dorsalis pedis and posterior tibial. [] Discharge Data Studies Completed and Pending Completed Studies During Hospitalization Category Date Time Status CT angio chest PE protcl [id number] Stat Cat Scan 02/02/22 14:[address] head wo con* [id number] Routine Cat Scan 02/02/22 18:13 Completed XR chest 1V portable [id number] Routine Exams 02/02/22 10:25 Completed CV. echo complete* [id number] Routine Ultrasound 02/02/22 11:54 Completed Pending at discharge Category Date Time Status CLAIMS ADJUSTER CROP request for service Routine Exams 02/03/22 08:11 Taken Miscellaneous Test Routine Lab 02/02/22 12:05 Received Radiology Impressions Chest X-Ray 02/02/22 10:25 IMPRESSION: Sequela of COPD. No acute findings. Chest CTA 02/02/22 14:08 IMPRESSION: Moderate emphysema. Negative for pulmonary embolism. No acute findings. Head CT 02/02/22 18:13 IMPRESSION: No acute intracranial abnormality. Laboratory Results WBC 11.0 10^3/uL (4.0-10.0) H 02/05/22 02:18 RBC 4.89 10^6/uL (4.1-5.3) 02/05/22 02:18 Hgb 15.6 g/dL (11.7-16.6) 02/05/22 02:18 Hct 46.3 % (42.0-52.0) 02/05/22 02:18 MCV 94.7 fl (80-94) H 02/05/22 02:18 MCH 31.9 pg (28.0-34.0) 02/05/22 02:18 MCHC 33.7 g/dL (30.0-36.0) 02/05/22 02:18 RDW 13.3 % (12.1-15.1) 02/05/22 02:18 Plt Count 188 10^3/cmm (130-400) 02/05/22 02:18 MPV 10.1 fL (7.4-10.4) 02/05/22 02:18 Neut % (Auto) 51.1 % 02/05/22 02:18 Lymph % (Auto) 35.3 % 02/05/22 02:18 Marin % (Auto) 9.2 % 02/05/22 02:18 Eos % (Auto) 3.3 % 02/05/22 02:18 Baso % (Auto) 0.7 % 02/05/22 02:18 Neut # (Auto) 5.64 10^3/uL (1.8-7.7) 02/05/22 02:18 Lymph # (Auto) 3.9 10^3/uL (0.8-4.8) 02/05/22 02:18 Marin # (Auto) 1.0 10^3/uL (0.2-0.9) H 02/05/22 02:18 Eos # (Auto) 0.4 10^3/uL (0.0-0.8) 02/05/22 02:18 Baso # (Auto) 0.1 10^3/uL (0.0-0.1) 02/05/22 02:18 Nucleated RBC % (auto) 0 % 02/05/22 02:18 Nucleated RBCs # 0.0 /100WBC 02/05/22 02:18 D-Dimer 1.24 ug/mIFEU (0-0.59) H 02/02/22 12:05 Specimen Type Arterial 02/03/22 18:36 Sample Site Radial, left 02/03/22 18:36 ABG pH 7.46 (7.35-7.45) H 02/03/22 18:36 ABG pCO2 32.9 mmHg (35-45) L 02/03/22 18:36 ABG pO2 73.3 mmHg (80.0-100.0) L 02/03/22 18:36 ABG HCO3 23.3 mmol/L (22-26) 02/03/22 18:36 ABG Base Excess 0.2 mmol/L (-2.0-2.0) 02/03/22 18:36 Mario Test Pos 02/03/22 18:36 Hematocrit 47.1 % (42-52) 02/03/22 18:36 O2 Delivery Device Nc 02/03/22 18:36 O2 Liters/Min 3.0 % 02/03/22 18:36 FiO2 32.0 % 02/03/22 18:36 Targeting Acquisition Officer ID Cak 02/03/22 18:36 Sodium 139 mmol/L (136-145) 02/05/22 02:18 Potassium 3.0 mmol/L (3.5-5.1) L 02/05/22 02:18 Chloride 103 mmol/L (98-107) 02/05/22 02:18 Carbon Dioxide 24 mmol/L (22-29) 02/05/22 02:18 Anion Gap 15.0 (5-19) 02/05/22 02:18 BUN 12 mg/dL (8-23) 02/05/22 02:18 Creatinine 0.8 mg/dL (0.7-1.2) 02/05/22 02:18 GFR Calculation Not Reportable 02/05/22 02:18 Glucose 107 mg/dL (65-115) 02/05/22 02:18 POC Glucose 172 mg/dL (70-110) H 02/05/22 07:16 Estimat Average Glucose 148 02/02/22 12:05 Hemoglobin A1c 6.8 % (4.0-6.0) H 02/02/22 12:05 Calculated Osmolality 288 mOsm/kg (285-295) 02/05/22 02:18 Calcium 9.3 mg/dL (8.5-10.5) 02/05/22 02:18 Phosphorus 2.8 mg/dL (2.5-4.5) 02/05/22 02:18 Magnesium 1.9 mg/dL (1.7-2.3) 02/05/22 02:18 Total Bilirubin 0.8 mg/dL (0.15-1.2) 02/05/22 02:18 AST 43 U/L (0-40) H 02/05/22 02:18 ALT 29 U/L (0-41) 02/05/22 02:18 Alkaline Phosphatase 75 IU/L (40-130) 02/05/22 02:18 Ammonia 33 umol/L (16-60) 02/03/22 19:02 Creatine Kinase 560 U/L (39-308) H* 02/04/22 03:44 Troponin T Baseline 18 ng/L (0-15) H 02/02/22 12:05 Troponin T 120 Minute 14.09 ng/L (0-15) 02/02/22 16:22 Delta Troponin T -3.91 ABS# (0-10) L 02/02/22 16:22 Troponin T Hi Sens 6Hr 17.35 ng/L (0-15) H 02/02/22 18:23 Troponin T Hi Sens 6Hr Delta -0.65 ng/L (0-12) L 02/02/22 18:23 C-Reactive Protein 31.7 mg/L (0.0-4.9) H 02/02/22 12:05 NT-Pro-B Natriuret Pep 209 pg/mL (0-450) 02/02/22 12:05 Total Protein 6.6 g/dL (6.6-8.7) 02/05/22 02:18 Albumin 3.7 g/dL (3.5-5.2) 02/05/22 02:18 Globulin 2.9 g/dL (1.3-4.6) 02/05/22 02:18 Triglycerides 103 mg/dL (0-150) 02/02/22 12:05 Cholesterol 190 mg/dL (0-200) 02/02/22 12:05 LDL Cholesterol, Calc 137 mg/dL (50-129) H 02/02/22 12:05 HDL Cholesterol 32 mg/dL (60-100) L 02/02/22 12:05 LDL/HDL Ratio 4.28 RATIO (0.00-3.22) H 02/02/22 12:05 Cholesterol/HDL Ratio 5.94 mg/dL (1.0-5.00) H 02/02/22 12:05 Procalcitonin 0.20 ng/mL (0-0.5) 02/02/22 12:05 Urine Color Yellow (Yellow) 02/02/22 22:00 Urine Appearance Clear (CLEAR) 02/02/22 22:00 Urine pH 7 (5-7) 02/02/22 22:00 Ur Specific [place] 1.005 (1.005-1.030) 02/02/22 22:00 Urine Protein Trace (Negative) 02/02/22 22:00 Urine Glucose (UA) Norm (Normal) 02/02/22 22:00 Urine Ketones 1+ (Negative) H 02/02/22 22:00 Urine Blood Trace (Negative) H 02/02/22 22:00 Urine Nitrate Negative (Negative) 02/02/22 22:00 Urine Bilirubin Neg (Negative) 02/02/22 22:00 Urine Urobilinogen 4+ mg/dL (Negative) H 02/02/22 22:00 Ur Leukocyte Esterase Trace (Negative) H 02/02/22 22:00 Urine RBC 0-4 /hpf (0-2) H 02/02/22 22:00 Urine WBC 0-4 /hpf (0-5) H 02/02/22 22:00 Ur Squamous Epith Cells 0-4 /hpf (0-5) H 02/02/22 22:00 Amorphous Sediment Not Reportable 02/02/22 22:00 Urine Bacteria Trace /hpf (NONE) 02/02/22 22:00 RPR Reactive (Nonreactive) H 02/02/22 12:05 T.pallidum Ab (FTA-ABS) Reactive (NON-REACTIVE) A 02/02/22 12:05 Hepatitis A IgM Ab Non-reactive (Nonreactive) 02/02/22 12:05 Hep Bs Antigen Non-reactive (Nonreactive) 02/02/22 12:05 Hep B Core IgM Ab Non-reactive (Nonreactive) 02/02/22 12:05 Hepatitis C Antibody Non-reactive (Nonreactive) 02/02/22 12:05 HIV 1&2 Ab & HIV 1 Ag Non-reactive (Non-Reactiv) 02/02/22 12:05 HIV 1&2 Antibody Non-reactive (Non-Reactiv) 02/02/22 12:05 Vitals Last Vital Signs Temp 97.9 F 02/05/22 00:00 Pulse 77 02/05/22 09:00 Resp 16 02/05/22 09:00 BP 137/109 02/05/22 06:00 Pulse Ox 93 02/05/22 09:00 Discharge Plan Discharge Patient Disposition: Home Health Service Condition: Stable Prescriptions: New lisinopril 20 mg Tablet 20 mg PO BID Qty: 180 0RF diltiazem HCl 120 mg Capsule,Extended Release 24hr 240 mg PO DAILY Qty: 90 0RF aspirin 81 mg Tablet,Delayed Release (Dr/Ec) 81 mg PO DAILY Qty: 90 0RF hydrochlorothiazide 25 mg Tablet 25 mg PO DAILY Qty: 90 0RF potassium chloride 10 mEq tablet extended release 10 meq PO DAILY Qty: 14 0RF doxycycline hyclate 100 mg capsule 100 mg PO BID 14 Days Qty: 28 0RF Continued clopidogrel 75 mg tablet 75 mg PO DAILY@08 0RF albuterol sulfate [ProAir HFA] 90 mcg/actuation HFA aerosol inhaler 2 puff INHALATION Q6H PRN (Reason: Bronchodilation) 0RF nitroglycerin [Nitrostat] 0.4 mg tablet, sublingual 0.4 mg SUBLINGUAL Q5M PRN (Reason: Chest Pain) 0RF gabapentin 300 mg capsule 300 mg PO TID 0RF tramadol 50 mg Tablet 50 mg PO Q8H PRN (Reason: Pain) 0RF lorazepam 0.5 mg Tablet 0.5 mg PO DAILY PRN (Reason: Anxiety) 0RF tamsulosin [Flomax] 0.4 mg Capsule 0.4 mg PO DAILY 0RF sertraline [Zoloft] 25 mg Tablet 50 mg PO DAILY 0RF cholecalciferol (vitamin D3) [Vitamin D3] 10 mcg (400 unit) Capsule 10 mcg PO DAILY 0RF mirtazapine 7.5 mg Tablet 7.5 mg PO BEDTIME 0RF budesonide-formoterol [Symbicort] 160-4.5 mcg/actuation HFA aerosol inhaler 2 puff INHALATION BID 0RF pantoprazole 40 mg Tablet,Delayed Release (Dr/Ec) 40 mg PO DAILY Qty: 30 0RF zinc 50 mg Tablet 50 mg PO DAILY 0RF Changed isosorbide mononitrate 60 mg tablet extended release 24 hr See Rx Instructions .ROUTE .COMPLEX Qty: 0 0RF Rx Instructions: Take 60mg in the AM and 30mg in the PM. Discontinued diltiazem HCl 120 mg capsule,extended release 24hr 120 mg PO DAILY 0RF lisinopril 10 mg tablet 10 mg PO BID Qty: 60 0RF Discharge Orders: Discharge Order (Routine); Ordered 02/05/22 Ordered By: Obinna Dumont Referrals: [facility] [Outside] (home health service notified of discharge ) Nai Guzman NP [Referring] - Dalton Stephenson M.D [Physician] - 1 month (PLEASE KEEP APPOINTMENT SCHEDULED , MARCH 10, 2022 AT TIME OF 2:45 PM ) Diamond Roberts FNP [Nurse Practitioner] - 1 week (THIS APPOINTMENT HAS BEEN SCHEDULED . FOR DATE OF SUNDAY, FEBRUARY 13, 2022 AT TIME OF 10:45 WILL NEED WOUND CHECK , AND LAB TEST WITH POST OP HOSPITAL FOLLOW UP ) Discharge Diet: Cardiac and Diabetic Discharge Activity: Increase activity as tolerated and As per PT/OT instructions Patient Instructions: Methyldopa/Hydrochlorothiazide (By mouth), Diltiazem (By mouth), Lisinopril (By mouth), Doxycycline (By mouth), Potassium Chloride (By mouth) (K-Dur, K-Adela, K-Tab, Charly Mur), Aspirin (By mouth), Coronary Angioplasty (DC), How to Stop Smoking (DC), Potassium Content of Foods List (GEN), Heart Healthy Diet (DC), Basic Carbohydrate Counting (DC), Fall Prevention (GEN), Coronary Intravascular Stent Placement (DC), Chest Pain Stoplight, Opioid Safety, Post Angiogram Home Care Instructions, Syphilis - Male Activity Restrictions/Additional Instructions: Please make sure that you are not missing aspirin and Plavix doses taking them daily, due to having a fresh placed in coronary artery, otherwise the stent may clot off leading to heart attack. Please continue to monitor your blood pressures at home closely, at least 2-3 times a day, write down the values to bring to your appointment with your primary doctor and hydrotel operator. They may make further adjustments to your blood pressure medications. Due to possible syphilis infection, additional tests have been repeated, and you are for now started on antibiotic treatment with doxycycline. Please continue antibiotic for now and follow-up with infectious disease specialist in office. Discuss with your primary doctor. Include foods rich in potassium due to noted mildly decreased potassium levels in the hospital. Please have your primary doctor follow-up your potassium level. Would recommend he consider quitting smoking given continued smoking will lead to progression of coronary disease, risk of additional heart attack especially with known coronary artery disease, risk of stroke, lung disease, cancer and other complications. Discharge Attestations Time Spent in Discharge Care*: less than 30 min Quality Metrics Clinical Quality Measures [ No reported AMI, CVA or VTE this stay] Coding Level of Care Code Acute Chg FW DC note Diagnoses HTN (hypertension) I10 Syphilis (acquired) A53.9 ASHD (arteriosclerotic heart disease) I25.10 Acute encephalopathy G93.40 Chest pain R07.9 Tobacco abuse Z72.0 Diabetes E11.9 CVA (cerebral vascular accident) I63.9 COPD (chronic obstructive pulmonary disease) J44.9
[2022-02-05 11:44] LABS: Glucose Point of Care 136 mg/dL (70-110)
[2022-02-06 11:46] LABS: Miscellaneous Test SEE COMMENTS
== END 2022-02-05 12:45 | disposition home health service (06) | DRG 246 ==
PROVIDERS: Family Medicine; Internal Medicine; Admitting Provider Internal Medicine; PCP Family Medicine; Visit Provider Internal Medicine
PROC: 027034Z Dilation of Coronary Artery, One Artery with Drug-eluting Intraluminal Device, Percutaneous Approach (ICD-10-PCS; principal; 2022-02-03 08:30)
PROC: 027034Z Dilation of Coronary Artery, One Artery with Drug-eluting Intraluminal Device, Percutaneous Approach (ICD-10-PCS; 2022-02-03 08:30)
DX: I25.110 Atherosclerotic heart disease of native coronary artery with unstable angina pectoris (principal); G93.41 Metabolic encephalopathy; J44.9 Chronic obstructive pulmonary disease, unspecified; I10 Essential (primary) hypertension; E11.42 Type 2 diabetes mellitus with diabetic polyneuropathy; N40.0 Benign prostatic hyperplasia without lower urinary tract symptoms; Z86.73 Personal history of transient ischemic attack (TIA), and cerebral infarction without residual deficits; F32.A Depression, unspecified; K21.9 Gastro-esophageal reflux disease without esophagitis; E78.5 Hyperlipidemia, unspecified; F17.210 Nicotine dependence, cigarettes, uncomplicated; I16.0 Hypertensive urgency; Z79.891 Long term (current) use of opiate analgesic; Z79.02 Long term (current) use of antithrombotics/antiplatelets; E87.6 Hypokalemia; A53.9 Syphilis, unspecified; F10.11 Alcohol abuse, in remission
CPT/HCPCS: 36415; 36416; 36600; 70450; 71045; 71275; 80053; 80061; 80074; 81001; 82140; 82550; 82803; 82962; 83036; 83735; 83880; 84100; 84145; 84484; 85025; 85347; 85378; 86140; 86592; 86593; 86780; 87493; 87806; 93005; 93306; 93454; 94640; 96360; 96372; 97161; 97530; 99152; 99153; C1725; C1769; C1874; C1887; C1894; C9600; J0360; J0696; J1170; J1200; J1644; J1650; J1815; J2060; J2250; J2270; J3010; J3490; J3535; J7030; J7626; Q0163; Q9967

== ENCOUNTER → 2022-02-13 10:43 | Outpatient (BNVA) | payer MEDICARE, SELFPAY | PROVIDERS: PCP Family Medicine; Visit Provider Nurse Practitioner Family | DX: I25.10 Atherosclerotic heart disease of native coronary artery without angina pectoris (principal); Z98.61 Coronary angioplasty status; F17.210 Nicotine dependence, cigarettes, uncomplicated; I10 Essential (primary) hypertension | CPT/HCPCS: 80048; 99213; 99214 ==

== ENCOUNTER 2022-02-18 10:37 | Emergency (ER) | payer MEDICARE, SELFPAY ==
[2022-02-18 10:47] VITALS: BP 128/67; PULSE 70; RESP 16; O2SAT 93
--- NOTE | 2022-02-18 10:52 | XRR_ITS ---
PROCEDURE INFORMATION: Exam: XR Chest Exam date and time: 02/18/2022 10:59 AM Age: 76 years old Clinical indication: Pain; Angina pectoris; Prior surgery; Surgery date: 1-6 months; Surgery type: Cardiac stent; Patient HX: PT had stent placed the end of last month sometime. PT has been feeling dizzy and lightheaded this past week; Additional info: Chest pain TECHNIQUE: Imaging protocol: XR of the chest. Views: 1 view. COMPARISON: CR (CHEST, ) 02/02/2022 12:12 PM FINDINGS: Lungs: Unremarkable. No consolidation. Pleural spaces: Unremarkable. No pleural effusion. No pneumothorax. Heart/Mediastinum: Unremarkable. No cardiomegaly. Bones/joints: Unremarkable. Comparison to prior examination similar findings seen XR/XR chest 1V portable [id number] IMPRESSION: No acute findings.
--- NOTE | 2022-02-18 10:53 | ECG_ITS ---
[facility] Test Date: 2022-02-18 Pat Name: Jose Perkins Department: Room: Gender: Male Dials Inspector: : [id number] Requested By: Adolfo Antony Order Number: [id number] Asael MD: Dalton Stephenson M.D. Measurements Intervals [place] Rate: 62 P: 83 NE: 189 QRS: 39 QRSD: 116 T: 63 QT: 425 QTc: 434 Interpretive Statements SINUS RHYTHM Compared to ECG 02/18/2022 10:52:34 Intraventricular conduction delay no longer present Electronically Signed On 02-18-2022 17:52:15 CDT by Dalton Stephenson M.D. [id number]
[2022-02-18 11:11] LABS: Basophils # 0.1 10^3/uL (0.0-0.1); Basophils % 0.7 %; Eosinophils # 0.3 10^3/uL (0.0-0.8); Eosinophils % 2.8 %; Hematocrit 44.2 % (42.0-52.0); Lymphocytes # 3.3 10^3/uL (0.8-4.8); Lymphocytes % 30.6 %; Mean Corpuscular HGB Conc 33.9 g/dL (30.0-36.0); Mean Corpuscular Hemoglobin 32.3 pg (28.0-34.0); Mean Corpuscular Volume 95.3 fl (80-94); Mean Platelet Volume 10.4 fL (7.4-10.4); Monocytes # 0.8 10^3/uL (0.2-0.9); Monocytes % 7.1 %; Neutrophils # 6.25 10^3/uL (1.8-7.7); Neutrophils % 58.5 %; Nucleated Red Blood Cells % 0 %; Platelet Count 199 10^3/cmm (130-400); Red Blood Count 4.64 10^6/uL (4.1-5.3); Red Cell Distribution Width 13.2 % (12.1-15.1); White Blood Count 10.7 10^3/uL (4.0-10.0)
[2022-02-18] MEDS: aspirin 81 mg Chew Tablet 324 MG PO (11:12)
[2022-02-18 11:28] LABS: Alanine Aminotransferase 34 U/L (0-41); Albumin Level 3.8 g/dL (3.5-5.2); Alkaline Phosphatase 84 IU/L (40-130); Aspartate Amino Transferase 43 U/L (0-40); Blood Urea Nitrogen 13 mg/dL (8-23); Carbon Dioxide 28 mmol/L (22-29); Chloride 100 mmol/L (98-107); Globulin 2.6 g/dL (1.3-4.6); Glucose 138 mg/dL (65-115); Osmolality Calculated 288 mOsm/kg (285-295); Sodium 138 mmol/L (136-145); Total Bilirubin 0.5 mg/dL (0.15-1.2); Total Protein 6.4 g/dL (6.6-8.7)
--- NOTE | 2022-02-18 11:30 | ED_ITS ---
HPI - Chest Pain General: Chief Complaint: Chest Pain Stated Complaint: SUBSTERNAL CHEST PAIN Time Seen by Provider: 02/18/22 10:42 Source: patient Mode of arrival: ambulatory Limitations: no limitations History of Present Illness: 76-year-old male presents emergency room with complaints of chest discomfort. Patient was recently hospitalized had a stent placed he states since he has had the stent he has had persistent chest discomfort. This morning he got up from being seated position got lightheaded and dizzy and nearly passed out and resolved after few minutes of rest. Blood pressure decreased. Patient states he checked his blood pressure was 185/52 when EMS arrived to 104/62. Patient stating his chest pain now is at a baseline he has had since he was hospitalized in late January. MD complaint: chest pain Onset (ago): hour(s) Timing of current episode: episodic Prior episodes: Yes Onset: during exertion (After standing) Pain location: left chest Pain radiation: none Severity: moderate Quality: tightness and heaviness Relieving factors: nothing Exacerbating factors: exertion Associated symptoms: Deny abdominal pain, diaphoresis, dyspnea, fever(s), leg edema, nausea, palpitations, sense of impending doom, syncope or vomiting Treatment prior to arrival: none Review of Systems Const: Denies: fever(s), chills or diaphoresis ENMT: Denies: throat pain, ear or mastoid pain, nasal discharge or nasal congestion Card: Reports: chest pain; Denies: palpitations or syncope Resp: Denies: dyspnea GI: Denies: abdominal pain, nausea or vomiting : Denies: flank pain, difficulty urinating, dysuria, urinary frequency or urinary urgency Skin/Breast: Denies: rash or pruritus PFS ED PFSH: Medical History ASHD (arteriosclerotic heart disease) BPH (benign prostatic hyperplasia) COPD (chronic obstructive pulmonary disease) CVA (cerebral vascular accident) Depression Diabetes GERD (gastroesophageal reflux disease) HTN (hypertension) Hyperlipidemia Peripheral neuropathy Syphilis (acquired) Tobacco abuse Surgical History History of appendectomy S/P cataract extraction S/P tonsillectomy Family History Father Cancer Mother Diabetes Social History Smoking and tobacco status: current every day smoker cigarettes Packs smoked per day: 0.25 Alcohol intake: former Physical Exam Const: COMMON NORMALS: no acute distress GENERAL APPEARANCE: cooperative and comfortable ORIENTATION/CONSCIOUSNESS: Yes awake, Yes oriented to person, Yes oriented to place and Yes oriented to time HENMT: COMMON NORMALS: normocephalic and atraumatic HEAD & SCALP: normocephalic and atraumatic Neck/C-Spine: COMMON NORMALS: no JVD Resp: COMMON NORMALS: normal respiratory effort, No retractions, No use of accessory muscles and clear to auscultation bilaterally AUSCULTATION: clear to auscultation bilaterally Cardio: COMMON NORMALS: no JVD, regular rate, regular rhythm and No murmurs present (Cardio) RATE: regular rate RHYTHM: regular rhythm GI: COMMON NORMALS: Soft to palpation and No hepatosplenomegaly present AUSCULTATION: Yes normoactive bowel sounds PALPATION: Yes Soft to palpation, No Tenderness to palpation present (GI), No Guarding due to palpation present (GI) and Yes No hepatosplenomegaly present Extremity: COMMON NORMALS: normal to inspection, capillary refill normal, no clubbing, cyanosis or edema, no calf tenderness and no pedal edema Neuro: SENSORIUM/ORIENTATION: Yes oriented to person, Yes oriented to place and Yes oriented to time Skin: COMMON NORMALS: no rashes or lesions noted GENERAL SKIN EXAM: no rashes or lesions noted Course Vital Signs: Vital signs: Vital Signs Pulse Rate 65 02/18/22 14:12 Respiratory Rate 17 02/18/22 13:37 Blood Pressure 150/86 02/18/22 14:12 Pulse Oximetry 94 02/18/22 13:37 MDM - Chest Pain Medical Decision Making At this point patient's symptoms are back at his baseline. His vital signs are normal and his orthostatics show a slight decrease but he was asymptomatic.. I will discharge the patient home continue his current medications return if he has any worsening symptoms follow-up with cardiology within a week. Medical Records I reviewed the patient's medical records. Lab Data I reviewed the patient's lab results. : 02/18/22 10:55 02/18/22 10:55 Radiology Impressions Chest X-Ray 02/18/22 10:52 IMPRESSION: No acute findings. Laboratory Results WBC 10.7 10^3/uL (4.0-10.0) H 02/18/22 10:55 RBC 4.64 10^6/uL (4.1-5.3) 02/18/22 10:55 Hgb 15.0 g/dL (11.7-16.6) 02/18/22 10:55 Hct 44.2 % (42.0-52.0) 02/18/22 10:55 MCV 95.3 fl (80-94) H 02/18/22 10:55 MCH 32.3 pg (28.0-34.0) 02/18/22 10:55 MCHC 33.9 g/dL (30.0-36.0) 02/18/22 10:55 RDW 13.2 % (12.1-15.1) 02/18/22 10:55 Plt Count 199 10^3/cmm (130-400) 02/18/22 10:55 MPV 10.4 fL (7.4-10.4) 02/18/22 10:55 Neut % (Auto) 58.5 % 02/18/22 10:55 Lymph % (Auto) 30.6 % 02/18/22 10:55 [place] % (Auto) 7.1 % 02/18/22 10:55 Eos % (Auto) 2.8 % 02/18/22 10:55 Baso % (Auto) 0.7 % 02/18/22 10:55 Neut # (Auto) 6.25 10^3/uL (1.8-7.7) 02/18/22 10:55 Lymph # (Auto) 3.3 10^3/uL (0.8-4.8) 02/18/22 10:55 [place] # (Auto) 0.8 10^3/uL (0.2-0.9) 02/18/22 10:55 Eos # (Auto) 0.3 10^3/uL (0.0-0.8) 02/18/22 10:55 Baso # (Auto) 0.1 10^3/uL (0.0-0.1) 02/18/22 10:55 Nucleated RBC % (auto) 0 % 02/18/22 10:55 Nucleated RBCs # 0.0 /100WBC 02/18/22 10:55 Sodium 138 mmol/L (136-145) 02/18/22 10:55 Potassium 4.2 mmol/L (3.5-5.1) 02/18/22 10:55 Chloride 100 mmol/L (98-107) 02/18/22 10:55 Carbon Dioxide 28 mmol/L (22-29) 02/18/22 10:55 Anion Gap 14.2 (5-19) 02/18/22 10:55 BUN 13 mg/dL (8-23) 02/18/22 10:55 Creatinine 1.0 mg/dL (0.7-1.2) 02/18/22 10:55 GFR Calculation Not Reportable 02/18/22 10:55 Glucose 138 mg/dL (65-115) H 02/18/22 10:55 Calculated Osmolality 288 mOsm/kg (285-295) 02/18/22 10:55 Calcium 9.0 mg/dL (8.5-10.5) 02/18/22 10:55 Total Bilirubin 0.5 mg/dL (0.15-1.2) 02/18/22 10:55 AST 43 U/L (0-40) H 02/18/22 10:55 ALT 34 U/L (0-41) 02/18/22 10:55 Alkaline Phosphatase 84 IU/L (40-130) 02/18/22 10:55 Troponin T Baseline 16 ng/L (0-15) H 02/18/22 10:55 Troponin T 120 Minute 13.64 ng/L (0-15) 02/18/22 12:50 Delta Troponin T -2.36 ABS# (0-10) L 02/18/22 12:50 Total Protein 6.4 g/dL (6.6-8.7) L 02/18/22 10:55 Albumin 3.8 g/dL (3.5-5.2) 02/18/22 10:55 Globulin 2.6 g/dL (1.3-4.6) 02/18/22 10:55 Discharge Plan Discharge Patient Disposition: Home Clinical Impression: Atypical chest pain, Orthostasis Condition: Stable Prescriptions: No Action clopidogrel 75 mg tablet 75 mg PO DAILY@08 0RF albuterol sulfate [ProAir HFA] 90 mcg/actuation HFA aerosol inhaler 2 puff INHALATION Q6H PRN (Reason: Bronchodilation) 0RF nitroglycerin [Nitrostat] 0.4 mg tablet, sublingual 0.4 mg SUBLINGUAL Q5M PRN (Reason: Chest Pain) 0RF gabapentin 300 mg capsule 300 mg PO TID 0RF lisinopril 20 mg tablet 20 mg PO DAILY Qty: 90 3RF potassium chloride 10 mEq tablet extended release 10 meq PO DAILY Qty: 90 0RF tramadol 50 mg Tablet 50 mg PO Q8H PRN (Reason: Pain) 0RF lorazepam 0.5 mg Tablet 0.5 mg PO DAILY PRN (Reason: Anxiety) 0RF tamsulosin [Flomax] 0.4 mg Capsule 0.4 mg PO DAILY 0RF sertraline [Zoloft] 25 mg Tablet 50 mg PO DAILY 0RF cholecalciferol (vitamin D3) [Vitamin D3] 10 mcg (400 unit) Capsule 10 mcg PO DAILY 0RF mirtazapine 7.5 mg Tablet 7.5 mg PO BEDTIME 0RF budesonide-formoterol [Symbicort] 160-4.5 mcg/actuation HFA aerosol inhaler 2 puff INHALATION BID 0RF pantoprazole 40 mg Tablet,Delayed Release (Dr/Ec) 40 mg PO DAILY Qty: 30 0RF isosorbide mononitrate 60 mg tablet extended release 24 hr 60 mg PO DAILY 0RF zinc 50 mg Tablet 50 mg PO DAILY 0RF diltiazem HCl 120 mg Capsule,Extended Release 24hr 240 mg PO DAILY Qty: 90 0RF aspirin 81 mg Tablet,Delayed Release (Dr/Ec) 81 mg PO DAILY Qty: 90 0RF hydrochlorothiazide 25 mg Tablet 25 mg PO DAILY Qty: 90 0RF doxycycline hyclate 100 mg capsule 100 mg PO BID 14 Days Qty: 28 0RF Discharge Orders: Discharge ED (Routine); Ordered 02/18/22 Ordered By: Adolfo Villarreal Referrals: Bishop Hall MD [Primary Care Provider] - Discharge Diet: Usual diet Discharge Activity: Limit activity as instructed Patient Instructions: Opioid Safety Activity Restrictions/Additional Instructions: Follow-up with cardiology next week. Coding Level of Care Code ED Regional Training Manager for Ledy Hernandez
[2022-02-18 11:32] VITALS: BP 131/79; PULSE 60; RESP 13; O2SAT 92
[2022-02-18 11:32] LABS: Anion Gap 14.2 (5-19); Potassium 4.2 mmol/L (3.5-5.1)
[2022-02-18 11:33] LABS: Troponin(5th) Baseline 16 ng/L (0-15)
--- NOTE | 2022-02-18 12:24 | PC.NURSE ---
Laila provided to patient at his request. Dr. Villarreal approved.
--- NOTE | 2022-02-18 12:53 | ECG_ITS ---
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 Measurements Intervals [place] Rate: 62 P: 81 UT: 190 QRS: 36 QRSD: 117 T: 57 QT: 426 QTc: 435 Interpretive Statements SINUS RHYTHM MODERATE INTRAVENTRICULAR CONDUCTION DELAY [110+ ms QRS DURATION] Compared to ECG 02/02/2022 16:51:35 Intraventricular conduction delay now present Myocardial infarct finding no longer present Electronically Signed On 02-18-2022 17:59:13 CDT by Dalton Stephenson M.D. [id number]
[2022-02-18 13:33] LABS: Troponin 5 2HR 13.64 ng/L (0-15)
[2022-02-18 13:37] VITALS: BP 147/88; PULSE 63; RESP 17; O2SAT 94
[2022-02-18 13:50] LABS: Troponin 5 2HR Delta -2.36 ABS# (0-10)
[2022-02-18 14:12] VITALS: BP 138/80; BP 150/86; BP 160/90; PULSE 65; PULSE 67; PULSE 69
[2022-02-18 14:52] VITALS: BP 147/88; PULSE 63; RESP 17; O2SAT 94
== END 2022-02-18 14:54 | disposition home or self-care (01) ==
PROVIDERS: Emergency Provider Family Medicine; PCP Family Medicine
DX: R07.89 Other chest pain (principal); I95.1 Orthostatic hypotension; I25.10 Atherosclerotic heart disease of native coronary artery without angina pectoris; I10 Essential (primary) hypertension; J44.9 Chronic obstructive pulmonary disease, unspecified; F17.210 Nicotine dependence, cigarettes, uncomplicated; Z86.73 Personal history of transient ischemic attack (TIA), and cerebral infarction without residual deficits
CPT/HCPCS: 71045; 80053; 84484; 85025; 93005; 99285

== ENCOUNTER → 2022-03-10 14:54 | Outpatient (BNVA) | payer MEDICARE, SELFPAY | PROVIDERS: PCP Family Medicine; Visit Provider Internal Medicine | DX: I25.10 Atherosclerotic heart disease of native coronary artery without angina pectoris (principal); I10 Essential (primary) hypertension; F17.210 Nicotine dependence, cigarettes, uncomplicated | CPT/HCPCS: 80048; 83880; 85025; 99214 ==

== ENCOUNTER 2022-03-28 15:15 | Outpatient (CLI) | payer MEDICARE, SELFPAY ==
[2022-03-28 16:25] LABS: Anion Gap 14.7 (5-19); Blood Urea Nitrogen 15 mg/dL (8-23); Calcium 9.3 mg/dL (8.5-10.5); Carbon Dioxide 26 mmol/L (22-29); Chloride 101 mmol/L (98-107); Glucose 104 mg/dL (65-115); NT Pro B Type Natriuretic Pept 103 pg/mL (0-450); Osmolality Calculated 287 mOsm/kg (285-295); Potassium 3.7 mmol/L (3.5-5.1); Sodium 138 mmol/L (136-145)
== END 2022-03-28 15:16 | disposition home or self-care (01) ==
LOC: LAB 15:17
PROVIDERS: PCP Family Medicine; Visit Provider Internal Medicine
DX: I10 Essential (primary) hypertension (principal); I25.10 Atherosclerotic heart disease of native coronary artery without angina pectoris
CPT/HCPCS: 80048; 83880

== ENCOUNTER → 2022-04-11 11:16 | Outpatient (BNVA) | payer MEDICARE, MEDICAID, SELFPAY | PROVIDERS: PCP Family Medicine; Visit Provider Family Medicine | DX: E11.9 Type 2 diabetes mellitus without complications (principal); I10 Essential (primary) hypertension; I25.10 Atherosclerotic heart disease of native coronary artery without angina pectoris | CPT/HCPCS: 80053; 83036 ==

== ENCOUNTER → 2022-04-17 17:33 | Outpatient (BNVA) | payer MEDICARE, MEDICAID, SELFPAY | PROVIDERS: PCP Family Medicine; Visit Provider Registered Nurse Neonatal Intensive Care | DX: N39.0 Urinary tract infection, site not specified (principal) | CPT/HCPCS: 81000; 87077; 87086; 87184 ==

== ENCOUNTER 2022-04-23 23:17 | Inpatient (IN) | payer MEDICARE, MEDICAID, SELFPAY ==
--- NOTE | 2022-04-23 23:44 | XRR_ITS ---
PROCEDURE INFORMATION: Exam: XR Chest Exam date and time: 04/24/2022 12:13 AM Age: 76 years old Clinical indication: Chest pressure; Prior surgery; Surgery type: Coronary stent; Patient HX: C/O chest pain. Hypertensive. TECHNIQUE: Imaging protocol: Radiologic exam of the chest. Views: 1 view. COMPARISON: CR XR chest 1V portable [id number] 02/18/2022 10:59 AM FINDINGS: Lungs: Mild bibasilar opacities may represent atelectasis, inflammation, or infection., improved compared to the prior however there is persistent elevation of the left hemidiaphragm and adjacent atelectasis. No consolidation. Pleural spaces: Unremarkable. No pleural effusion. No pneumothorax. Heart/Mediastinum: Unremarkable. No cardiomegaly. The thoracic aorta is tortuous and atherosclerotic. Bones/joints: There are degenerative changes of the spine and the shoulder joints. XR/XR chest 1V portable [id number] IMPRESSION: No new acute radiographic findings in the chest.
--- NOTE | 2022-04-23 23:44 | ECG_ITS ---
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 Measurements Intervals [place] Rate: 72 P: 54 ME: 177 QRS: 36 QRSD: 118 T: 58 QT: 418 QTc: 459 Interpretive Statements SINUS RHYTHM Compared to ECG 02/18/2022 12:51:02 No significant changes Electronically Signed On 04-24-2022 18:41:23 CDT by Bria Figueroa M.D. [id number]
[2022-04-23 23:53] VITALS: BMI 31.4
[2022-04-23 23:59] VITALS: BP 142/97; PULSE 96; RESP 20; TEMP 36.6; O2SAT 98
[2022-04-24] VITALS (49 sets, daily range): BP systolic 110–245; BP diastolic 60–171; PULSE 54–94; RESP 12–24; TEMP 36.7–37.1; O2SAT 91–98
--- NOTE | 2022-04-24 00:01 | W.ED.CHESTPA ---
HPI - Chest Pain General: Chief Complaint: Chest Pain Stated Complaint: CHEST PAIN Time Seen by Provider: 04/24/22 00:01 History of Present Illness: Mr. Perkins is a 76-year-old gentleman with complex past medical history including hypertension, hyperlipidemia, history of tobaccoism, diabetes, CAD with recent hospitalization for stent who presents to the emergency department due to generalized illness. He reports over the past few weeks having difficulty with balance and having somewhat tremulousness since his hospitalization. Starting today he is at chest discomfort in the left anterior chest and substernal region in addition to shortness of breath. EMS found the patient to have hypoxemia and initiated oxygen via nasal cannula. He does also endorse abdominal pain with nausea, vomiting but no changes in bowel habits. Intensity symptoms is moderate. Course is worsened. No other specific changes in health, exacerbating, or alleviating factors identified. Pertinent past history: coronary artery disease Onset (ago): day(s) Prior episodes: Yes Pain location: substernal and left chest Severity: moderate Relieving factors: nothing Exacerbating factors: nothing Associated symptoms: Reports abdominal pain, dyspnea, nausea and vomiting Review of Systems General: Reports: 10 or more systems reviewed and unremarkable except in HPI and below Resp: Reports: dyspnea GI: Reports: abdominal pain, nausea and vomiting PFS ED PFSH: Medical History (Updated 05/09/22 @ 11:07 by Joe Bustillos DO) ASHD (arteriosclerotic heart disease) BPH (benign prostatic hyperplasia) Chest pain COPD (chronic obstructive pulmonary disease) CVA (cerebral vascular accident) Depression Diabetes Falls GERD (gastroesophageal reflux disease) HTN (hypertension) Hyperlipidemia Late latent syphilis Nausea and vomiting Orthostatic dizziness Peripheral neuropathy PSA elevation Screening for STD (sexually transmitted disease) Syphilis (acquired) Tobacco abuse Surgical History History of appendectomy S/P cataract extraction S/P tonsillectomy Family History Father Cancer Mother Diabetes Social History Smoking and tobacco status: current every day smoker cigarettes Packs smoked per day: 0.25 Alcohol intake: former Adopted: No Caregiver/support person: No Lives independently: Yes Household members: none Housing: Apartment Marital status: Current occupational status: disabled Pets and animals: No Current gender identity: Male Physical Exam Const: COMMON NORMALS: alert GENERAL APPEARANCE: cooperative, well developed and ill appearing HENMT: COMMON NORMALS: normocephalic and atraumatic HEAD & SCALP: normocephalic and atraumatic Eye: COMMON NORMALS: conjunctivae normal CONJUNCTIVA: Yes conjunctivae normal SCLERA: sclerae normal Neck/C-Spine: COMMON NORMALS: supple GENERAL: Yes trachea midline Resp: EFFORT & INSPECTION: Yes able to speak in complete sentences AUSCULTATION: breath sounds absent Cardio: COMMON NORMALS: regular rate and regular rhythm RATE: regular rate RHYTHM: regular rhythm GI: COMMON NORMALS: Soft to palpation PALPATION: Yes Soft to palpation and No Tenderness to palpation present (GI) PERCUSSION: normal to percussion Extremity: GENERAL: Yes normal exam except as noted and No edema Neuro: COMMON NORMALS: moves all extremities SENSORIUM/ORIENTATION: Yes alert and No Orientation impaired Psych: COMMON NORMALS: mental status grossly normal and Normal thought process present THOUGHT PROCESS: Normal thought process present Course ED course: - Patient was seen and evaluated by me at bedside - Patient placed on cardiac monitors, IV access obtained - Initial evaluation notable for exam as above - Labs and xrays personally interpreted by me. EKG shows sinus rhythm with nonspecific interventricular conduction delay and ST segment abnormalities. No STEMI. -Multiple doses of antihypertensives given throughout patient's ED evaluation without significant sustained improvement blood pressure, patient subsequently started on nicardipine drip - Labs notable for no leukocytosis, normal hemoglobin. Metabolic panel without acute derangement to explain symptoms. Mild transaminitis. Delta troponin negative. - Imaging notable for no lobar consolidation or pneumothorax on chest x-ray. CT chest abdomen pelvis without acute chest pathology, patient has abdominal aortic aneurysm without rupture. Discussed findings with patient including enlarged prostate as well. Negative head CT. - Upon serial reexamination after treatment the patient was similar - Based on patient history, evaluation, and testing as interpreted the most likely cause of the patient's condition is hypertensive emergency - The results of ED evaluation were discussed with the patient including plan for admission due to requirement for level of care not available if discharged to prevent significant worsening/deterioration. - Admitting service was contacted and Dr Mosher with the hospitalist service agreed to admit the patient - Patient was admitted without further deterioration or significant events. Note: Click bubbles or prepopulated garcia in note writing are used for assistance with data collection and billing and are inherently more limited than narrative and other text portions of this note. Please use narrative for additional clinical history and defer to narrative/free test for any case of contradictory information. If information appears in only free text or click bubble it should be considered present or absent as reported. Please contact note life insurance underwriter for clarifications of clinical information or contradictory information. MDM is a brief summary, contradictory or erroneous seeming information should be clarified and full note should be reviewed. Vital Signs: Vital signs: Vital Signs Temperature 97.6 F 05/01/22 17:23 Pulse Rate 63 05/01/22 17:23 Respiratory Rate 16 05/01/22 17:23 Blood Pressure 118/77 05/01/22 17:23 Pulse Oximetry 95 05/01/22 17:23 Oxygen Delivery Me thod 05/01/22 15:44 Oxygen Flow Rate 2 04/26/22 22:23 MDM - Chest Pain Medical Decision Making 76-year-old gentleman with complex past medical history presenting with generalized symptoms. Patient found with hypertensive emergency and failed multiple single dose treatments in the emergency department requiring initiation of IV drip and admission to the hospital for further management. Medical Records I reviewed the patient's medical records. Lab Data I reviewed the patient's lab results. : 04/27/22 05:20 04/27/22 05:20 Radiology Impressions Chest/Abdomen/Pelvis CT 04/24/22 01:43 IMPRESSION: 1. Stable severe calcified coronary artery disease. 2. No pulmonary embolus or aortic dissection. 3. Stable mild mediastinal adenopathy which is probably reactive. IMPRESSION: 1. 5.2 cm abdominal aortic aneurysm without rupture. 2. Enlarged 5.8 cm prostate greater than or equal to 5.0 cm; correlation with PSA levels is recommended. COMMENTS: Consistent with the [place] [employer]'s Incidental Findings Committee white paper (J Am Lisa Radiol 2018): Any incidental renal lesion less than 1 cm or classified as too small to characterize, or any incidental cystic renal lesion characterized as simple-appearing, is likely benign. No follow-up imaging is recommended for these lesions per consensus recommendations based on imaging criteria. Head CT 04/24/22 03:22 IMPRESSION: No acute intracranial findings. Abdomen/Pelvis CTA 04/25/22 12:48 IMPRESSION: 1. Large abdominal aortic aneurysm without rupture. Maximum diameter of the aneurysm is 5.3 cm. 2. Mild stenosis distal abdominal aorta. 3. Multilevel areas of stenosis involving the common, internal and external iliac artery and the proximal LEFT SFA. Most significant stenosis near 70% involving the LEFT internal iliac artery and the proximal LEFT SFA. 4. New inflammatory process centered at the duodenal C-loop and the lateral pancreatic head. There is wall thickening and new inflammatory fat stranding and a small amount of fluid. Loss of the normal fat plane between the pancreatic head and duodenum. Increased soft tissue thickening and enhancement along the medial duodenal head near the ampulla of Vater. There is no duct dilatation. This may be inflammatory but early neoplasm needs to be considered at the ampulla of Vater. Consider endoscopic evaluation. MRCP may provide additional information considering the distal common bile duct and the duodenal C-loop. Chest X-Ray 04/26/22 09:20 IMPRESSION: Emphysematous change , interstitial prominence, and mild airspace disease. Laboratory Results WBC 9.2 10^3/uL (4.0-10.0) 04/23/22 22:25 RBC 5.02 10^6/uL (4.1-5.3) 04/23/22 22:25 Hgb 16.5 g/dL (11.7-16.6) 04/23/22 22:25 Hct 47.7 % (42.0-52.0) 04/23/22 22:25 MCV 95.0 fl (80-94) H 04/23/22 22:25 MCH 32.9 pg (28.0-34.0) 04/23/22 22:25 MCHC 34.6 g/dL (30.0-36.0) 04/23/22 22:25 RDW 13.7 % (12.1-15.1) 04/23/22 22:25 Plt Count 201 10^3/cmm (130-400) 04/23/22 22:25 MPV 11.0 fL (7.4-10.4) H 04/23/22 22:25 Neut % (Auto) 48.7 % 04/23/22 22:25 Lymph % (Auto) 38.9 % 04/23/22 22:25 [place] % (Auto) 8.1 % 04/23/22 22:25 Eos % (Auto) 3.2 % 04/23/22 22:25 Baso % (Auto) 0.9 % 04/23/22 22:25 Neut # (Auto) 4.50 10^3/uL (1.8-7.7) 04/23/22 22:25 Lymph # (Auto) 3.6 10^3/uL (0.8-4.8) 04/23/22 22:25 [place] # (Auto) 0.8 10^3/uL (0.2-0.9) 04/23/22 22:25 Eos # (Auto) 0.3 10^3/uL (0.0-0.8) 04/23/22 22: Baso # (Auto) 0.1 10^3/uL (0.0-0.1) 04/23/22 22:25 Nucleated RBC % (auto) 0 % 04/23/22 22: Nucleated RBCs # 0.0 /100WBC 04/23/22 22:25 ESR 18 mm/hr (0-10) H 04/24/22 05:20 Sodium 144 mmol/L (136-145) 04/23/22 22:25 Potassium 4.1 mmol/L (3.5-5.1) 04/23/22 22:25 Chloride 105 mmol/L (98-107) 04/23/22 22:25 Carbon Dioxide 26 mmol/L (22-29) 04/23/22 22:25 Anion Gap 17.1 (5-19) 04/23/22 22:25 BUN 10 mg/dL (8-23) 04/23/22 22:25 Creatinine 0.9 mg/dL (0.7-1.2) 04/23/22 22:25 GFR Calculation Not Reportable 04/23/22 22:25 Glucose 118 mg/dL (65-115) H 04/23/22 22:25 Calculated Osmolality 298 mOsm/kg (285-295) H 04/23/22 22:25 Lactic Acid 1.3 mmol/L (0.5-2.2) 04/24/22 05:18 Calcium 10.7 mg/dL (8.5-10.5) H 04/23/22 22:25 Total Bilirubin 0.7 mg/dL (0.15-1.2) 04/23/22 22:25 AST 54 U/L (0-40) H 04/23/22 22:25 ALT 33 U/L (0-41) 04/23/22 22:25 Alkaline Phosphatase 88 IU/L (40-130) 04/23/22 22:25 Troponin T Baseline 18 ng/L (0-15) H 04/23/22 22:25 Troponin T 120 Minute 16.88 ng/L (0-15) H 04/24/22 01:31 Delta Troponin T -1.12 ABS# (0-10) L 04/24/22 01:31 Troponin T Hi Sens 6Hr 21.19 ng/L (0-15) H 04/24/22 05:18 Troponin T Hi Sens 6Hr Delta 3.19 ng/L (0-12) 04/24/22 05:18 C-Reactive Protein 12.9 mg/L (0.0-4.9) H 04/24/22 05:20 NT-Pro-B Natriuret Pep 309 pg/mL (0-450) 04/23/22 22:25 Total Protein 6.7 g/dL (6.6-8.7) 04/23/22 22:25 Albumin 4.1 g/dL (3.5-5.2) 04/23/22 22:25 Globulin 2.6 g/dL (1.3-4.6) 04/23/22 22:25 Lipase 36 U/L (13-60) 04/23/22 22:25 Prostate Specific Ag 6.340 ng/mL (0-4) H 04/24/22 05:20 Vitamin B12 663 pg/mL (232-1245) 04/24/22 05:20 Procalcitonin 0.17 ng/mL (0-0.5) 04/24/22 05:18 TSH 0.70 uIU/mL (0.27-4.20) 04/24/22 05:20 RPR Titer/FTA 1:1 H 04/24/22 05:20 RPR w/Rflx to Titer Reactive (NON-REACTIVE) A 04/24/22 05:20 T.pallidum Ab (FTA-ABS) Reactive (NON-REACTIVE) A 04/24/22 05:18 SARS-CoV-2 Ag (Rapid) Negative (Negative) 04/24/22 00:40 Critical Care Time Critical Care Time: Critical Care Time: Yes Total Critical Care Time: 35 Attestation: Due to a high probability of clinically significant, possibly life threatening deterioration, the patient required my highest level of attention and preparedness to intervene emergently and I personally spent this critical care time directly and personally managing the patient. This critical care time included obtaining a history; examining the patient; pulse oximetry; ordering and review of laboratory and imaging studies; arranging urgent treatment with development of a management plan; evaluation of patient's response to treatment; frequent reassessment; and, discussions with other providers as applicable. It was exclusive of separately billable procedures. Primary system involved is cardiopulmonary Discharge Plan Discharge Patient Disposition: Admitted As Inpatient Admit Provider: Johnson Mosher Clinical Impression: Hypertensive emergency, Chest pain, Falls, Nausea and vomiting Condition: Stable Discharge Diet: Cardiac Discharge Activity: As per PT/OT instructions Coding Level of Care Code ED Data Review Specialist for Kishag Fwd Exam Comprehensive
--- NOTE | 2022-04-24 00:03 | PC.NURSE ---
after triage, patient states that left chest pain has returned and radiates into left abd. also reports dizziness at home when discussing falls, last fall 2 days ago, has been experiencing bp issues since stent placement.
--- NOTE | 2022-04-24 00:11 | PC.NURSE ---
dr suarez notified that patient reported return of cp and abd pain, that he reports several falls at home and dizziness, and that he takes plavix daily after cardiac stent placement 6 weeks ago. anabel rockwell at bedside for ekg and to obtain urine and assist with urinal.
--- NOTE | 2022-04-24 00:30 | PC.NURSE ---
pt removed iv, found with blood on bed, clothes, arms, legs, floor. bleeding stopped, 4x4 applied with koban. patient and room cleaned, equipment and floor/room cleaned. assisted back to bed from [facility], bm x 1. clean catch urine, covid antigen, and new iv established, see flow sheet.
--- NOTE | 2022-04-24 00:33 | PC.NURSE ---
attempted to obtain covid antigen swab, patient on bsc having bm, will return.
[2022-04-24 01:13] LABS: Basophils # 0.1 10^3/uL (0.0-0.1); Basophils % 0.9 %; Eosinophils # 0.3 10^3/uL (0.0-0.8); Eosinophils % 3.2 %; Hematocrit 47.7 % (42.0-52.0); Hemoglobin 16.5 g/dL (11.7-16.6); Lymphocytes # 3.6 10^3/uL (0.8-4.8); Lymphocytes % 38.9 %; Mean Corpuscular HGB Conc 34.6 g/dL (30.0-36.0); Mean Corpuscular Hemoglobin 32.9 pg (28.0-34.0); Monocytes # 0.8 10^3/uL (0.2-0.9); Monocytes % 8.1 %; Neutrophils % 48.7 %; Nucleated Red Blood Cells % 0 %; Platelet Count 201 10^3/cmm (130-400); Red Blood Count 5.02 10^6/uL (4.1-5.3); Red Cell Distribution Width 13.7 % (12.1-15.1); White Blood Count 9.2 10^3/uL (4.0-10.0)
[2022-04-24 01:37] LABS: Troponin(5th) Baseline 18 ng/L (0-15)
[2022-04-24 01:37] LABS: SARS Covid-2 Antigen Negative (Negative)
[2022-04-24] MEDS: hyDRALAzine 20 mg/mL INJ 1 mL 10 MG IVP (01:37)
[2022-04-24 01:39] LABS: Slide Review Slide Review Perform
[2022-04-24 01:41] LABS: Alanine Aminotransferase 33 U/L (0-41); Albumin Level 4.1 g/dL (3.5-5.2); Alkaline Phosphatase 88 IU/L (40-130); Blood Urea Nitrogen 10 mg/dL (8-23); Calcium 10.7 mg/dL (8.5-10.5); Carbon Dioxide 26 mmol/L (22-29); Chloride 105 mmol/L (98-107); Globulin 2.6 g/dL (1.3-4.6); Glucose 118 mg/dL (65-115); Lipase 36 U/L (13-60); Osmolality Calculated 298 mOsm/kg (285-295); Sodium 144 mmol/L (136-145); Total Bilirubin 0.7 mg/dL (0.15-1.2); Total Protein 6.7 g/dL (6.6-8.7)
[2022-04-24 01:42] LABS: Anion Gap 17.1 (5-19); Aspartate Amino Transferase 54 U/L (0-40); Potassium 4.1 mmol/L (3.5-5.1)
--- NOTE | 2022-04-24 01:43 | CTR_ITS ---
PROCEDURE INFORMATION: Exam: CTA Chest With Contrast Exam date and time: 04/24/2022 1:56 AM Age: 76 years old Clinical indication: Abdominal pain; Generalized; Chest pressure; Prior surgery; Surgery type: Coronary stent. Appy. Patient HX: C/O chest and abd pain. Hypertensive and hypoxic on monitor. Elevated troponin. ; Additional info: New o2, chest pain, abd pain n/v TECHNIQUE: Imaging protocol: Computed tomographic angiography of the chest with contrast. 3D rendering (Not supervised by radiologist): MIP and/or 3D reconstructed images were created by the technologist. Radiation optimization: All CT scans at this facility use at least one of these dose optimization techniques: automated exposure control; mA and/or kV adjustment per patient size (includes targeted exams where dose is matched to clinical indication); or iterative reconstruction. Contrast material: OMNI 350; Contrast volume: 95 ml; Contrast route: INTRAVENOUS (IV); COMPARISON: CT angio chest PE protcl [id number] 02/02/2022 2:48 PM RADIATION DOSE METRICS: Total DLP (mGy-cm): 1323.28 FINDINGS: Pulmonary arteries: No pulmonary embolus or aortic dissection. Aorta: See Pulmonary arteries finding. Lungs: Mild paraseptal emphysema. Left discoid atelectasis and/or scarring. Stable 1.1 cm pulmonary nodule right lower lobe with possible punctate calcifications. Pleural spaces: Unremarkable. No pneumothorax. No pleural effusion. Heart: Stable severe calcified coronary artery disease. Lymph nodes: Stable mild mediastinal adenopathy which is probably reactive. Diaphragm: Stable elevation of the left hemidiaphragm consistent with eventration. Bones/joints: Unremarkable. No acute fracture. Soft tissues: Unremarkable. PROCEDURE INFORMATION: Exam: CT Abdomen And Pelvis With Contrast Exam date and time: 04/24/2022 1:56 AM Age: 76 years old Clinical indication: Abdominal pain; Generalized; Chest pressure; Prior surgery; Surgery type: Coronary stent. Appy. Patient HX: C/O chest and abd pain. Hypertensive and hypoxic on monitor. Elevated troponin. ; Additional info: New o2, chest pain, abd pain n/v TECHNIQUE: Imaging protocol: Computed tomography of the abdomen and pelvis with contrast. Radiation optimization: All CT scans at this facility use at least one of these dose optimization techniques: automated exposure control; mA and/or kV adjustment per patient size (includes targeted exams where dose is matched to clinical indication); or iterative reconstruction. Contrast material: OMNI 350; Contrast volume: 95 ml; Contrast route: INTRAVENOUS (IV); COMPARISON: CT pelvis wo con [id number] 12/16/2020 8:54 PM RADIATION DOSE METRICS: Total DLP (mGy-cm): 1328.28 FINDINGS: Liver: Normal. No mass. Gallbladder and bile ducts: Surgical clips in the gallbladder fossa consistent with cholecystectomy. Pancreas: Normal. No ductal dilation. Spleen: Normal. No splenomegaly. Adrenal glands: Normal. No mass. Kidneys and ureters: Multiple left renal simple cysts with the largest measuring > 1.0 cm. Multiple right renal simple cysts with the largest measuring > 1.0 cm . Stomach and bowel: Unremarkable. No obstruction. No mucosal thickening. Appendix: Previous appendectomy. Intraperitoneal space: Unremarkable. No free air. No significant fluid collection. Vasculature: 5.2 cm abdominal aortic aneurysm without rupture. Lymph nodes: Unremarkable. No enlarged lymph nodes. Urinary bladder: Unremarkable as visualized. Reproductive: Enlarged 5.8 cm prostate greater than or equal to 5.0 cm; correlation with PSA levels is recommended. Bones/joints: Unremarkable. No acute fracture. Soft tissues: Unremarkable. CT/CT angio chest w abd pel w con IMPRESSION: 1. Stable severe calcified coronary artery disease. 2. No pulmonary embolus or aortic dissection. 3. Stable mild mediastinal adenopathy which is probably reactive. IMPRESSION: 1. 5.2 cm abdominal aortic aneurysm without rupture. 2. Enlarged 5.8 cm prostate greater than or equal to 5.0 cm; correlation with PSA levels is recommended. COMMENTS: Consistent with the [employer]'s Incidental Findings Committee white paper (J Am Lisa Radiol 2018): Any incidental renal lesion less than 1 cm or classified as too small to characterize, or any incidental cystic renal lesion characterized as simple-appearing, is likely benign. No follow-up imaging is recommended for these lesions per consensus recommendations based on imaging criteria.
--- NOTE | 2022-04-24 01:44 | ECG_ITS ---
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 Measurements Intervals [place] Rate: 65 P: 89 WA: 180 QRS: 44 QRSD: 113 T: 66 QT: 409 QTc: 428 Interpretive Statements SINUS RHYTHM MODERATE INTRAVENTRICULAR CONDUCTION DELAY [110+ ms QRS DURATION] NONSPECIFIC T-WAVE ABNORMALITY Compared to ECG 04/24/2022 00:14:03 Intraventricular conduction delay now present T-wave abnormality now present Electronically Signed On 04-24-2022 18:56:40 CDT by Bria Figueroa M.D. [id number]
[2022-04-24 01:47] LABS: NT Pro B Type Natriuretic Pept 309 pg/mL (0-450)
--- NOTE | 2022-04-24 01:51 | PC.NURSE ---
patient requesting anxiety medication, states that he takes 2 different medications at home BID for anxiety and has not had evening doses, and is also having increased anxiety due to being in ed. dr suarez notified.
[2022-04-24 02:09] LABS: Troponin 5 2HR 16.88 ng/L (0-15)
[2022-04-24] MEDS: iohexol 350 mg/mL 100 mL Btl IV (02:11)
[2022-04-24 02:15] LABS: Troponin 5 2HR Delta -1.12 ABS# (0-10)
--- NOTE | 2022-04-24 02:39 | PC.NURSE ---
assisted to bsc, x 1 bm diarrhea light brown, assisted back to bed.
--- NOTE | 2022-04-24 02:41 | PC.NURSE ---
patient refused ativan tablet due to history of psychosis following administration. will notify
--- NOTE | 2022-04-24 03:13 | PC.NURSE ---
dr suarez notified of vitals.
--- NOTE | 2022-04-24 03:15 | PC.NURSE ---
assisted patient from bed to bsc, large bm, diarrhea, yellow and light brown very foul odor. patient assisted back to bed, noted that patient is very unsteady, dyspneic. after getting in bed, patient reports nausea and begins dry heaving, dr bourne notified. 4mg zofran ordered, see nov.
[2022-04-24] MEDS: cloNIDine 0.1 mg Tablet PO (03:16)
[2022-04-24] MEDS: lisinopril 20 mg Tablet PO ×3 (03:16→17:28)
--- NOTE | 2022-04-24 03:22 | CTR_ITS ---
PROCEDURE INFORMATION: Exam: CT Head Without Contrast Exam date and time: 04/24/2022 3:36 AM Age: 76 years old Clinical indication: Patient HX: Persistently hypertensive in er with highest BP of 235/130. Having n/v. On plavix. Recent history of falls. ; Additional info: Falls on plavix TECHNIQUE: Imaging protocol: Computed tomography of the head without contrast. Radiation optimization: All CT scans at this facility use at least one of these dose optimization techniques: automated exposure control; mA and/or kV adjustment per patient size (includes targeted exams where dose is matched to clinical indication); or iterative reconstruction. COMPARISON: CT head wo con* [id number] 02/02/2022 8:22 PM RADIATION DOSE METRICS: Total DLP (mGy-cm): 1147.28 FINDINGS: Brain: Severe calcified intracranial atherosclerotic vessel disease. Mild cerebral atrophy and ischemic leukoencephalopathy. Cerebral ventricles: No ventriculomegaly. Paranasal sinuses: Visualized sinuses are unremarkable. No fluid levels. Mastoid air cells: Visualized mastoid air cells are well aerated. Bones/joints: Unremarkable. No acute fracture. Soft tissues: Unremarkable. CT/CT head wo con* [id number] IMPRESSION: No acute intracranial findings.
[2022-04-24] MEDS: ondansetron 2 mg/ML SDV 2 mL 4 MG IVP (03:30)
--- NOTE | 2022-04-24 03:32 | PC.NURSE ---
patient dry heaving stopped at this time.
--- NOTE | 2022-04-24 03:40 | PC.NURSE ---
dr suarez made aware of vs, awaiting cardene gtt from pharmacy.
--- NOTE | 2022-04-24 04:30 | PC.NURSE ---
attempted report at this time to ICU, nurse unavailable and will call back.
--- NOTE | 2022-04-24 04:45 | PC.NURSE ---
dr suarez notified of bp, cardene held per verbal order.
--- NOTE | 2022-04-24 04:52 | PC.NURSE ---
admitting dr at bedside for exam and H&P, discussed vitals and holding cardene, hospitalist states that patient is still ICU appropriate and will continue admission to icu 3.
--- NOTE | 2022-04-24 05:11 | P.HP_ITS ---
Providers/Chief Complaint Admitting Physician: Johnson Mosher MD Primary Care Provider: Bishop Hall MD Chief Complaint: CHEST PAIN History of Present Illness Jose Perkins is a 76 year old male past medical history of hypertension, CAD status post drug-eluting stent to mid RCA, balloon angioplasty of distal RCA, history of tobacco abuse, type 2 diabetes mellitus, history of CVA, COPD who presents [facility] due to fatigue, malaise, dizziness, chest pain, shortness of breath. Patient tells me that he has not been feeling well recently, he does not know exactly why, no dysuria, hematuria, no cough, no fevers, does report lightheadedness and dizziness. He recently saw ENT for hearing loss, dizziness, he does report generalized weakness. He also tells me that recently has been experiencing chest pain, and shortness of breath with exertion, he tells he cannot come out of his house, because he has to climb for 4 flights of stairs which she cannot do with his shortness of breath. He is taking all his medications as prescribed, no bloody or black stools, no hematemesis. Denies drinking alcohol. Does smoke cigarettes. Denies drug use. Review of Systems Const: Reports: fatigue and malaise; Denies: fever(s) or chills Eyes: Denies: change in vision ENMT: Reports: nasal congestion Card: Reports: chest pain and lightheadedness Resp: Reports: dyspnea GI: Denies: abdominal pain, nausea or vomiting : Denies: flank pain, difficulty urinating or dysuria Neuro: Reports: weakness in extremities, frequent falls and dizziness; Denies: numbness in extremities or sensory changes Medications/Allergies Home Medications Medication Instructions Recorded Confirmed Last Taken Type albuterol sulfate 90 mcg/actuation 2 puff inhalation Q6H PRN 12/02/19 04/17/22 08/14/20 History aerosol inhaler (ProAir HFA) Bronchodilation clopidogrel 75 mg tablet 75 mg PO DAILY@08 12/02/19 04/17/22 02/18/22 History nitroglycerin 0.4 mg sublingual 0.4 mg sublingual Q5M PRN Chest 12/02/19 04/17/22 02/17/22 History tablet (Nitrostat) Pain gabapentin 300 mg capsule 300 mg PO TID 1004/17/22 02/18/22 History budesonide-formoterol HFA 160 2 puff inhalation BID 06/12/21 04/17/22 02/18/22 History mcg-4.5 mcg/actuation aerosol inhaler (Symbicort) lorazepam 0.5 mg tablet 0.5 mg PO DAILY PRN Anxiety 06/12/21 04/17/22 Unknown History mirtazapine 7.5 mg tablet 7.5 mg PO BEDTIME 06/12/21 04/17/22 02/17/22 History sertraline 25 mg tablet (Zoloft) 50 mg PO DAILY 06/12/21 04/17/22 02/17/22 History tamsulosin 0.4 mg capsule (Flomax) 0.4 mg PO DAILY 06/12/21 04/17/22 02/17/22 H istory tramadol 50 mg tablet 50 mg PO Q8H PRN Pain 06/12/21 04/17/22 Unknown History zinc 50 mg tablet 50 mg PO DAILY 02/02/22 04/17/22 02/18/22 History aspirin 81 mg tablet,delayed 81 mg PO DAILY #90 tabs 02/05/22 04/17/22 02/18/22 Rx release lisinopril 20 mg tablet 20 mg PO DAILY #90 tabs 02/13/22 04/17/22 02/18/22 Rx potassium chloride 10 mEq 10 meq PO DAILY #90 tabs 02/13/22 04/17/22 02/18/22 Rx tablet,extended release isosorbide mononitrate 60 mg 60 mg PO DAILY 02/18/22 04/17/22 02/18/22 History tablet,extended release 24 hr cholecalciferol (vitamin D3) 125 125 mcg PO DAILY 04/11/22 04/17/22 Unknown History mcg (5,000 unit) capsule ciprofloxacin HCl 500 mg tablet 500 mg PO BID #14 tabs 04/21/22 Unknown Rx Allergies Allergy/AdvReac Type Severity Reaction Status Date / Time Penicillins Allergy Unknown Unknown Verified 04/11/22 10:19 tirofiban Allergy Unknown Unknown Verified 04/11/22 10:19 [From Aggrastat Concentrate] shellfish derived Allergy ADR-Vomitin Verified 04/11/22 10:19 g lorazepam [From Ativan] AdvReac Severe ADR-Halluci Verified 04/24/22 02:43 nating PFSH Acute PFSH: Medical History ASHD (arteriosclerotic heart disease) BPH (benign prostatic hyperplasia) COPD (chronic obstructive pulmonary disease) CVA (cerebral vascular accident) Depression Diabetes GERD (gastroesophageal reflux disease) HTN (hypertension) Hyperlipidemia Peripheral neuropathy Syphilis (acquired) Tobacco abuse Surgical History History of appendectomy S/P cataract extraction S/P tonsillectomy Family History Father Cancer Mother Diabetes Social History Smoking and tobacco status: current every day smoker cigarettes Packs smoked per day: 0.25 Alcohol intake: former Adopted: No Caregiver/support person: No Lives independently: Yes Household members: none Housing: Apartment Marital status: Current occupational status: disabled Pets and animals: No Current gender identity: Male Vitals/I&O/Wt Last Vital Signs Temp 97.9 F 04/23/22 23:59 Pulse 73 04/24/22 04:53 Resp 20 H 04/24/22 04:53 BP 161/95 04/24/22 04:53 Pulse Ox 94 04/24/22 04:53 O2 Del Method 04/24/22 04:53 O2 Flow Rate 3 04/24/22 04:53 Weight last 48 hrs Weight 102.058 kg Physical Exam Const: COMMON NORMALS: no acute distress and patient oriented x3 HENMT: COMMON NORMALS: normocephalic HEAD & SCALP: normocephalic Eye: COMMON NORMALS: Equal, round and reactive pupils present and EOMs intact bilaterally Resp: COMMON NORMALS: normal respiratory effort, No retractions, No use of accessory muscles and clear to auscultation bilaterally AUSCULTATION: clear to auscultation bilaterally Cardio: COMMON NORMALS: regular rate, regular rhythm, S1 normal heart sound present and S2 normal heart sound present RATE: regular rate RHYTHM: regular rhythm HEART SOUNDS: S1 normal heart sound present and S2 normal heart sound present GI: COMMON NORMALS: Normal to inspection, nondistended, normoactive bowel sounds present, Soft to palpation, non-tender, No hepatosplenomegaly present, no masses and no bruits PALPATION: Yes Soft to palpation and Yes No hepatosplenomegaly present Extremity: COMMON NORMALS: capillary refill normal, no clubbing, cyanosis or edema, no calf tenderness and no pedal edema Neuro: COMMON NORMALS: patient oriented x3, CN's II-XII intact bilaterally, moves all extremities and no focal motor deficits Psych: COMMON NORMALS: mental status grossly normal Data : 04/23/22 22:25 04/23/22 22:25 A&P Assessment and plan (1) Hypertensive emergency: Status: Acute (2) Chest pain: Status: Acute (3) Falls: Status: Acute (4) Tobacco abuse: Status: Acute (5) HTN (hypertension): Status: Acute (6) ASHD (arteriosclerotic heart disease): Status: Acute Plan Hypertensive and urgency, with chest pain and shortness of breath -No strokelike symptoms -CT head no acute findings -Baseline troponin 18, no acute ST-T wave changes, no active chest pain at -Is on 3 L, does complain of shortness of breath Plan -Continue Cardene drip -Increase lisinopril to 20 twice daily -Continue Imdur 60 mg once daily -Add metoprolol 25 mg twice daily -DNR/DNI -Lovenox for DVT prophylaxis Chest pain -Serial EKGs concerning troponins, telemetry monitoring -Recently had a stent placed to mid RCA, and balloon angioplasty of distal RCA -Continue aspirin, statin, Plavix, beta-aguila -Follow troponin trend, repeat echo Shortness of breath -No wheezing on exam, does smoke -CT of the chest no acute findings -We will do a trial of Lasix for fluid overload Lightheadedness, dizziness, falls, sensorineural hearing loss, fatigue, malaise -Had a history of RPR and FTA-ABS positivity, treated with antibiotics -We will repeat testing -CT shows a 1.1 cm pulmonary nodule which is stable has mild mediastinal lymphadenopathy, enlarged prostate Abdominal aortic aneurysm, 5 to 2 cm, without rupture Attestations Medical Necessity Statement*: Patient requires hospitalization, inpatient, greater than 2 midnights, for hypertensive emergency Coding Level of Care Code Acute Digital Performance Analyst for [facility] Fwd Diagnoses Hypertensive emergency I16.1 Chest pain R07.9 Falls W19.XXXA Tobacco abuse Z72.0 HTN (hypertension) I10 ASHD (arteriosclerotic heart disease) I25.10
--- NOTE | 2022-04-24 05:17 | PC.NURSE ---
lab at bedside for blood draw.
--- NOTE | 2022-04-24 05:48 | PC.NURSE ---
report given to arianna goldsmith at this time, accepted to icu 3.
[2022-04-24 05:53] LABS: Lactic Sepsis W/Reflex 1.3 mmol/L (0.5-2.2)
--- NOTE | 2022-04-24 06:00 | ECG_ITS ---
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 Measurements Intervals [place] Rate: 66 P: 83 MI: 177 QRS: 51 QRSD: 111 T: 66 QT: 409 QTc: 429 Interpretive Statements SINUS RHYTHM MODERATE INTRAVENTRICULAR CONDUCTION DELAY [110+ ms QRS DURATION] NONSPECIFIC T-WAVE ABNORMALITY Compared to ECG 04/24/2022 01:28:09 No significant changes Electronically Signed On 04-24-2022 18:56:19 CDT by Bria Figueroa M.D. [id number]
[2022-04-24 06:05] LABS: Troponin 5 6HR 21.19 ng/L (0-15); Troponin 5 6HR Delta 3.19 ng/L (0-12)
[2022-04-24 06:12] LABS: Procalcitonin 0.17 ng/mL (0-0.5)
--- NOTE | 2022-04-24 06:32 | USCV_ITS ---
Gregorio Jose Age: 76 Gender: M : 1945 Exam Date: 04/24/2022 13:24 Ordering Phys: Johnson Mosher MD Technologist: Rl Nascimento Exam Location: [facility] [place] Indication: sob BP: 180 / 86 HR: 60 Rhythm: Sinus Technical Quality: Adequate MEASUREMENTS (Male / Female) Normal Values 2D ECHO LV Diastolic Diameter PLAX 3.8 cm 4.2 - 5.9 / 3.9 - 5.3 cm LV Systolic Diameter PLAX 2.7 cm IVS Diastolic Thickness 1.1 cm 0.6 - 1.0 / 0.6 - 0.9 cm IVS Systolic Thickness 1.6 cm LVPW Diastolic Thickness 1.3 cm 0.6 - 1.0 / 0.6 - 0.9 cm LVPW Systolic Thickness 1.7 cm LVOT Diameter 2.0 cm LV Ejection Fraction 2D Teich 58.3 % LV Ejection Fraction MOD 2C 62.1 % LV Ejection Fraction 2C AL 62.5 % LA Diameter 3.3 cm LA Width 4.0 cm LA Height 4.4 cm RA Width 3.6 cm RA Height 4.7 cm Aorta at Sinotubular Diameter 2.5 cm IVC Diameter 1.9 cm M-MODE Aortic Annulus Diameter 3.0 cm LA Ao Ratio MM 1.0 MV E Point Septal Separation 0.7 cm DOPPLER AV Peak Velocity 183.3 cm/s LVOT Peak Velocity 84.0 cm/s AV Area Cont Eq vti 1.4 cm squared AV Area Cont Eq pk 1.5 cm squared MV Peak Velocity 98.0 cm/s MV Area PHT 4.0 cm squared Mitral E to A Ratio 0.6 MV E' Velocity 26.0 cm/s Mitral E to MV E' Ratio 8.4 Mitral E to LV E' Lateral Ratio 7.2 Mitral E to LV E' Septal Ratio 10.3 TR Peak Velocity 223.2 cm/s TR Peak Gradient 19.9 mmHg TR Mean Velocity 171.6 cm/s TR Mean Gradient 12.8 mmHg TR Velocity Time Integral 61.5 cm Right Atrial Pressure 3.0 mmHg Pulmonary Artery Systolic Pressu 22.9 mmHg RV Acceleration Time 0.2 s RV Ejection Time 0.4 s RV AcT/ET 0.5 FINDINGS Left Ventricle Mild to moderate concentric left ventricular hypertrophy with a normal ejection fraction of 63%.no regional wall motion abnormalities. Grade I/IV diastolic dysfunction (abnormal relaxation filling pattern), normal to mildly elevated filling pressures. Right Ventricle The right ventricle is normal in size and function. Right Atrium The right atrium is normal in size. Left Atrium The left atrium is normal in size. Mitral Valve No gross abnormalities noted Aortic Valve Thickened aortic valve. Moderate aortic valve calcification. Aortic valve sclerosis. Tricuspid Valve No gross abnormalities noted Pulmonic Valve Pulmonic valve not well visualized. Pericardium No pericardial effusion. Aorta Normal aortic annulus size. IVC The inferior vena cava pulmonary and hepatic veins appear normal. CONCLUSIONS Mild to moderate concentric left ventricular hypertrophy with a normal ejection fraction of 63%. No regional wall motion abnormalities. Grade I/IV diastolic dysfunction (abnormal relaxation filling pattern), normal to mildly elevated filling pressures. Moderate aortic valve calcification. Features of aortic valve sclerosis. There is no pericardial effusion. There are no intracardiac masses. Comparison with the previous study is difficult because of the difference in the technical quality. Dr Uma Patel MD [facility] (Electronically Signed) Final Date: 25 April 2022 08:38 S
[2022-04-24 07:22] LABS: C Reactive Protein 12.9 mg/L (0.0-4.9)
[2022-04-24 07:31] LABS: Erythrocyte Sedimentation Rate 18 mm/hr (0-10)
[2022-04-24] MEDS: potassium chloride ER 10 mEq Tablet PO (08:04)
[2022-04-24] MEDS: sertraline 50 mg Tablet PO (08:04)
[2022-04-24] MEDS: isosorbide mononitrate ER 60 mg Tablet PO (08:04)
[2022-04-24] MEDS: tamsulosin 0.4 mg Capsule PO (08:04)
[2022-04-24] MEDS: metoprolol tartrate 25 mg Tablet PO ×2 (08:04→21:47)
[2022-04-24] MEDS: gabapentin 300 mg Capsule PO ×3 (08:04→21:47)
[2022-04-24] MEDS: aspirin 81 mg EC Tablet PO (08:04)
[2022-04-24] MEDS: zinc gluconate 50 mg Tablet PO (08:04)
[2022-04-24] MEDS: FUROsemide 10 mg/mL SDV 4mL 40 MG IVP (08:05)
[2022-04-24] MEDS: pantoprazole 40 mg SDV IVP (08:05)
[2022-04-24] MEDS: clopidogrel 75 mg Tablet PO (08:05)
[2022-04-24] MEDS: cholecalciferol (vitamin D3) 5,000 unit Tablet 5000 UNIT PO (08:05)
[2022-04-24] MEDS: enoxaparin 40 mg/0.4 mL Syringe SUBCUT (08:06)
[2022-04-24 08:17] LABS: Glucose Point of Care 113 mg/dL (70-110)
--- NOTE | 2022-04-24 09:35 | PC.PHAR ---
pt states he takes care of his own medications-pt brought in some of his medication bottles-rx bottle brought in for lisinopril 20mg bid filled 02/05/22 90d/s -pt wrote on med bottle / tab (10mg) daily--rx written on 02/13/22 has 20mg daily-pt states he also takes 30mg daily of imdur rx bottle dated 04/18/22 30d/s has 60mg bid-[facility] metzger from [facility] states the bactrim ds filled on 04/18/22 7d/s was dced and changed to cipro-yassine from [facility] states on 03/11/22 that the diltiazem 120mg was dced and states the hctz 25mg daily was also dced last filled on 02/05/22 90d/s-notes are made in the pharmacy comments
--- NOTE | 2022-04-24 12:16 | P.PN_ITS ---
Subjective Subjective: Blood pressure was 130/80 this morning heart rate below 70, I did tell him about aortic aneurysm He will need Dr. Gee's appointment No active abdominal discomfort is complaining of left lower quadrant pain Currently on room air Awake and alert Patient lives in an apartment Patient is stating that his balance is off I requested PT eval he has been treated for syphilis patient is stating that he has not had any sexual activity in a long time Vitals/I&O/Wt Last Vital Signs Temp 98.1 F 04/24/22 08:00 Pulse 94 04/24/22 08:30 Resp 17 04/24/22 08:30 BP 179/139 04/24/22 08:30 Pulse Ox 94 04/24/22 08:00 O2 Del Method 04/24/22 07:00 O2 Flow Rate 3 04/24/22 05:48 04/23/22 04/24/22 04/24/22 22:59 06:59 14:59 Intake Total 240 / 240 Output Total 2 / 2 Balance 238 / 238 Weight last 48 hrs Weight 102.058 kg Physical Exam Narrative: Patient is awake and alert Morbidly obese Abdomen soft Nontender no guarding or rigidity Awake and alert Saturating well on room air Blood pressure is stable Hard of hearing Has proprioception of his lower extremity No signs of edema Data : 04/23/22 22:25 04/23/22 22:25 Micro: Microbiology 04/24/22 05:18 Blood Culture - Preliminary Blood SPECIMEN COLLECTED 04/24/22 05:18 Blood Culture - Preliminary Blood SPECIMEN COLLECTED A&P Assessment and plan (1) Hypertensive emergency: Status: Acute (2) Chest pain: Status: Acute (3) Falls: Status: Acute (4) Diabetes: Status: Acute (5) Screening for STD (sexually transmitted disease): Status: Acute (6) HTN (hypertension): Status: Acute (7) ASHD (arteriosclerotic heart disease): Status: Acute (8) AAA (abdominal aortic aneurysm): Status: Acute Plan Hypertensive emergency: Resolved, currently not on Cardene drip I have added chlorthalidone to his metoprolol, lisinopril and Imdur regimen AAA 2019 AAA 4.4 cm Current dimensions 5 cm without any signs of dissection or rupture Chest pain resolved, nonsignificant troponin leakage Intact proprioception, patient has been experiencing falls at home, will request PT, check B12 level BPH, PSA 6.3 he will need outpatient Dr. Rodriguez appointment Patient is DNR/DNI, his sister should be notified in case of any event Monitor for now I might be able to discharge him later today versus tomorrow Outpatient follow-up with Dr. Rodriguez and Dr. Gee Attestations Medical Necessity Statement*: If pressure stays fine he can be discharged later today versus tomorrow Time Spent in Patient Care: 40 Coding Level of Care Code Acute Fixed Wing Aircraft Flight Mechanic for g Fwd Diagnoses Hypertensive emergency I16.1 Chest pain R07.9 Falls W19.XXXA Diabetes E11.9 Screening for STD (sexually transmitted disease) Z11.3 HTN (hypertension) I10 ASHD (arteriosclerotic heart disease) I25.10 AAA (abdominal aortic aneurysm) I71.4
[2022-04-24 12:47] LABS: Glucose Point of Care 126 mg/dL (70-110)
[2022-04-24 13:49] LABS: Vitamin B12 663 pg/mL (232-1245)
[2022-04-24] MEDS: chlorthalidone 25 mg Tablet PO (14:06)
[2022-04-24] MEDS: perflutren protein-a microsphr 0.22 mg/mL SDV 3 mL IV (15:44)
[2022-04-24 17:23] LABS: Glucose Point of Care 104 mg/dL (70-110)
[2022-04-24 17:38] LABS: Add Urine Microscopic? NO; Charge for UA Resulting for Rev
[2022-04-24 17:43] LABS: Bilirubin Urine Neg (Negative); Blood Urine Neg (Negative); Glucose Urine UA Norm (Normal); Ketones Urine Negative (Negative); Leukocyte Esterase Urine Negative (Negative); Nitrate Urine Negative (Negative); Protein Urine Neg (Negative); Specific Gravity, Urine 1.005 (1.005-1.030); Urine Appearance Clear (CLEAR); Urine Color Yellow (Yellow); Urobilinogen Urine Norm (Negative); pH Urine 5 (5-7)
--- NOTE | 2022-04-24 18:24 | PC.NURSE ---
Transferred to [facility] by staff via wheelchair. Medications and all belongings sent with pt.
[2022-04-24 21:02] LABS: Glucose Point of Care 101 mg/dL (70-110)
[2022-04-24] MEDS: mirtazapine 15 mg Tablet 7.5 MG PO (21:47)
[2022-04-24] MEDS: atorvastatin 40 mg Tablet PO (21:47)
[2022-04-25] VITALS (12 sets, daily range): BP systolic 71–179; BP diastolic 39–82; PULSE 57–76; RESP 16–20; TEMP 36.6–37.1; O2SAT 90–95
[2022-04-25 05:06] LABS: Basophils # 0.1 10^3/uL (0.0-0.1); Basophils % 0.7 %; Eosinophils # 0.6 10^3/uL (0.0-0.8); Eosinophils % 4.7 %; Hematocrit 50.5 % (42.0-52.0); Hemoglobin 16.4 g/dL (11.7-16.6); Lymphocytes # 4.6 10^3/uL (0.8-4.8); Lymphocytes % 38.5 %; Mean Corpuscular HGB Conc 32.5 g/dL (30.0-36.0); Mean Corpuscular Hemoglobin 32.4 pg (28.0-34.0); Mean Corpuscular Volume 99.8 fl (80-94); Neutrophils # 5.75 10^3/uL (1.8-7.7); Neutrophils % 47.9 %; Nucleated Red Blood Cells % 0 %; Platelet Count 209 10^3/cmm (130-400); Red Blood Count 5.06 10^6/uL (4.1-5.3); Red Cell Distribution Width 13.9 % (12.1-15.1)
[2022-04-25 05:35] LABS: Alanine Aminotransferase 38 U/L (0-41); Albumin Level 3.7 g/dL (3.5-5.2); Alkaline Phosphatase 82 IU/L (40-130); Anion Gap 14.7 (5-19); Aspartate Amino Transferase 62 U/L (0-40); Blood Urea Nitrogen 14 mg/dL (8-23); Calcium 9.6 mg/dL (8.5-10.5); Carbon Dioxide 28 mmol/L (22-29); Chloride 107 mmol/L (98-107); Creatinine Clr Calc Pharmacy 74.0583; Globulin 3.3 g/dL (1.3-4.6); Glucose 94 mg/dL (65-115); Magnesium 1.8 mg/dL (1.7-2.3); Osmolality Calculated 302 mOsm/kg (285-295); Phosphorus 3.2 mg/dL (2.5-4.5); Potassium 3.7 mmol/L (3.5-5.1); Sodium 146 mmol/L (136-145); Total Bilirubin 0.8 mg/dL (0.15-1.2)
[2022-04-25 05:43] LABS: Slide Review Slide Review Perform
[2022-04-25 06:42] LABS: Glucose Point of Care 101 mg/dL (70-110)
[2022-04-25] MEDS: clopidogrel 75 mg Tablet PO (09:07)
[2022-04-25] MEDS: enoxaparin 40 mg/0.4 mL Syringe SUBCUT (09:07)
[2022-04-25] MEDS: chlorthalidone 25 mg Tablet PO (09:07)
[2022-04-25] MEDS: zinc gluconate 50 mg Tablet PO (09:07)
[2022-04-25] MEDS: cholecalciferol (vitamin D3) 5,000 unit Tablet 5000 UNIT PO (09:07)
[2022-04-25] MEDS: isosorbide mononitrate ER 60 mg Tablet PO (09:07)
[2022-04-25] MEDS: aspirin 81 mg EC Tablet PO (09:07)
[2022-04-25] MEDS: sertraline 50 mg Tablet PO (09:07)
[2022-04-25] MEDS: tamsulosin 0.4 mg Capsule PO (09:07)
[2022-04-25] MEDS: lisinopril 20 mg Tablet PO (09:08)
[2022-04-25] MEDS: potassium chloride ER 10 mEq Tablet PO (09:08)
[2022-04-25] MEDS: gabapentin 300 mg Capsule PO ×2 (09:08→18:03)
[2022-04-25] MEDS: metoprolol tartrate 25 mg Tablet PO (09:11)
[2022-04-25 10:07] LABS: RPR w(Moniotor) w/REFL Titer REACTIVE (NON-REACTIVE)
--- NOTE | 2022-04-25 10:29 | PC.NURSE ---
Pt placed call light on, states that he stood up to reach to close blinds and became very dizzy and fell back into bed, patient states this has happened often. Patient blood pressure 92/60 pulse 68. return call pending from Dr. Toscano.
--- NOTE | 2022-04-25 10:42 | PC.NURSE ---
Dr. Toscano at [facility], new blood pressure obtained 111/70.
--- NOTE | 2022-04-25 11:38 | P.DS_ITS ---
Discharge Providers Date of Admission: 04/24/22 05:57 Date of Discharge: April 25, 2022 Attending Provider at Admission: Johnson Mosher MD Attending Provider at Discharge: Love Toscano MD Primary Care Provider: Bishop Hall MD Diagnoses at Discharge Discharge Diagnosis (1) Hypertensive emergency: Status: Acute (2) Chest pain: Status: Acute (3) Falls: Status: Acute (4) Diabetes: Status: Acute (5) Screening for STD (sexually transmitted disease): Status: Acute (6) HTN (hypertension): Status: Acute (7) ASHD (arteriosclerotic heart disease): Status: Acute (8) AAA (abdominal aortic aneurysm): Status: Acute Reason for Visit Reason for Visit: CHEST PAIN Discharge Data Studies Completed and Pending Completed Studies During Hospitalization Category Date Time Status CT head wo con* [id number] Stat Cat Scan 04/24/22 03:[address] abdomen pelvis [CT angio chest w abd pel w Cat Scan 04/24/22 01:43 Completed con] Stat XR chest 1V portable [id number] Urgent Exams 04/23/22 23:44 Completed CV. echo wo/w contrast [id number] Routine Ultrasound 04/24/22 06:32 Completed Pending at discharge Category Date Time Status Blood Culture Stat Lab 04/24/22 05:18 Results Complete Blood Count w/Auto AM LABS Lab 04/26/22 04:00 Ordered Complete Blood Count w/Auto AM LABS Lab 04/27/22 04:00 Ordered Comprehensive Metabolic Panel AM LABS Lab 04/26/22 04:00 Ordered Comprehensive Metabolic Panel AM LABS Lab 04/27/22 04:00 Ordered Magnesium AM LABS Lab 04/26/22 04:00 Ordered Magnesium AM LABS Lab 04/27/22 04:00 Ordered Phosphorus AM LABS Lab 04/26/22 04:00 Ordered Phosphorus AM LABS Lab 04/27/22 04:00 Ordered Treponema pallidum Ab Stat Lab 04/24/22 05:18 Received Urine Culture Stat Lab 04/24/22 17:30 Received Radiology Impressions Chest X-Ray 04/23/22 23:44 IMPRESSION: No new acute radiographic findings in the chest. Chest/Abdomen/Pelvis CT 04/24/22 01:43 IMPRESSION: 1. Stable severe calcified coronary artery disease. 2. No pulmonary embolus or aortic dissection. 3. Stable mild mediastinal adenopathy which is probably reactive. IMPRESSION: 1. 5.2 cm abdominal aortic aneurysm without rupture. 2. Enlarged 5.8 cm prostate greater than or equal to 5.0 cm; correlation with PSA levels is recommended. COMMENTS: Consistent with the [employer]'s Incidental Findings Committee white paper (J Am Lisa Radiol 2018): Any incidental renal lesion less than 1 cm or classified as too small to characterize, or any incidental cystic renal lesion characterized as simple-appearing, is likely benign. No follow-up imaging is recommended for these lesions per consensus recommendations based on imaging criteria. Head CT 04/24/22 03:22 IMPRESSION: No acute intracranial findings. Laboratory Results WBC 12.0 10^3/uL (4.0-10.0) H 04/25/22 04:26 RBC 5.06 10^6/uL (4.1-5.3) 04/25/22 04:26 Hgb 16.4 g/dL (11.7-16.6) 04/25/22 04:26 Hct 50.5 % (42.0-52.0) 04/25/22 04:26 MCV 99.8 fl (80-94) H 04/25/22 04:26 MCH 32.4 pg (28.0-34.0) 04/25/22 04:26 MCHC 32.5 g/dL (30.0-36.0) 04/25/22 04:26 RDW 13.9 % (12.1-15.1) 04/25/22 04:26 Plt Count 209 10^3/cmm (130-400) 04/25/22 04:26 MPV 10.0 fL (7.4-10.4) 04/25/22 04:26 Neut % (Auto) 47.9 % 04/25/22 04:26 Lymph % (Auto) 38.5 % 04/25/22 04:26 [place] % (Auto) 8.0 % 04/25/22 04:26 Eos % (Auto) 4.7 % 04/25/22 04:26 Baso % (Auto) 0.7 % 04/25/22 04:26 Neut # (Auto) 5.75 10^3/uL (1.8-7.7) 04/25/22 04:26 Lymph # (Auto) 4.6 10^3/uL (0.8-4.8) 04/25/22 04:26 [place] # (Auto) 1.0 10^3/uL (0.2-0.9) H 04/25/22 04:26 Eos # (Auto) 0.6 10^3/uL (0.0-0.8) 04/25/22 04:26 Baso # (Auto) 0.1 10^3/uL (0.0-0.1) 04/25/22 04:26 Nucleated RBC % (auto) 0 % 04/25/22 04:26 Nucleated RBCs # 0.0 /100WBC 04/25/22 04:26 ESR 18 mm/hr (0-10) H 04/24/22 05:20 Sodium 146 mmol/L (136-145) H 04/25/22 04:26 Potassium 3.7 mmol/L (3.5-5.1) 04/25/22 04:26 Chloride 107 mmol/L (98-107) 04/25/22 04:26 Carbon Dioxide 28 mmol/L (22-29) 04/25/22 04:26 Anion Gap 14.7 (5-19) 04/25/22 04:26 BUN 14 mg/dL (8-23) 04/25/22 04:26 Creatinine 1.0 mg/dL (0.7-1.2) 04/25/22 04:26 GFR Calculation Not Reportable 04/25/22 04:26 Glucose 94 mg/dL (65-115) 04/25/22 04:26 POC Glucose 101 mg/dL (70-110) 04/25/22 06:35 Calculated Osmolality 302 mOsm/kg (285-295) H 04/25/22 04:26 Lactic Acid 1.3 mmol/L (0.5-2.2) 04/24/22 05:18 Calcium 9.6 mg/dL (8.5-10.5) 04/25/22 04:26 Phosphorus 3.2 mg/dL (2.5-4.5) 04/25/22 04:26 Magnesium 1.8 mg/dL (1.7-2.3) 04/25/22 04:26 Total Bilirubin 0.8 mg/dL (0.15-1.2) 04/25/22 04:26 AST 62 U/L (0-40) H 04/25/22 04:26 ALT 38 U/L (0-41) 04/25/22 04:26 Alkaline Phosphatase 82 IU/L (40-130) 04/25/22 04:26 Troponin T Baseline 18 ng/L (0-15) H 04/23/22 22:25 Troponin T 120 Minute 16.88 ng/L (0-15) H 04/24/22 01:31 Delta Troponin T -1.12 ABS# (0-10) L 04/24/22 01:31 Troponin T Hi Sens 6Hr 21.19 ng/L (0-15) H 04/24/22 05:18 Troponin T Hi Sens 6Hr Delta 3.19 ng/L (0-12) 04/24/22 05:18 C-Reactive Protein 12.9 mg/L (0.0-4.9) H 04/24/22 05:20 NT-Pro-B Natriuret Pep 309 pg/mL (0-450) 04/23/22 22:25 Total Protein 7.0 g/dL (6.6-8.7) 04/25/22 04:26 Albumin 3.7 g/dL (3.5-5.2) 04/25/22 04:26 Globulin 3.3 g/dL (1.3-4.6) 04/25/22 04:26 Lipase 36 U/L (13-60) 04/23/22 22:25 Prostate Specific Ag 6.340 ng/mL (0-4) H 04/24/22 05:20 Vitamin B12 663 pg/mL (232-1245) 04/24/22 05:20 Procalcitonin 0.17 ng/mL (0-0.5) 04/24/22 05:18 TSH 0.70 uIU/mL (0.27-4.20) 04/24/22 05:20 Urine Color Yellow (Yellow) 04/24/22 17:30 Urine Appearance Clear (CLEAR) 04/24/22 17:30 Urine pH 5 (5-7) 04/24/22 17:30 Ur Specific [place] 1.005 (1.005-1.030) 04/24/22 17:30 Urine Protein Neg (Negative) 04/24/22 17:30 Urine Glucose (UA) Norm (Normal) 04/24/22 17:30 Urine Ketones Negative (Negative) 04/24/22 17:30 Urine Blood Neg (Negative) 04/24/22 17:30 Urine Nitrate Negative (Negative) 04/24/22 17:30 Urine Bilirubin Neg (Negative) 04/24/22 17:30 Urine Urobilinogen Norm mg/dL (Negative) 04/24/22 17:30 Ur Leukocyte Esterase Negative (Negative) 04/24/22 17:30 RPR w/Rflx to Titer Reactive (NON-REACTIVE) A 04/24/22 05:20 SARS-CoV-2 Ag (Rapid) Negative (Negative) 04/24/22 00:40 Vitals Last Vital Signs Temp 97.8 F 04/25/22 08:00 Pulse 68 04/25/22 10:31 Resp 17 04/25/22 08:00 BP 92/60 04/25/22 10:31 Pulse Ox 95 04/25/22 08:00 O2 Del Method 04/25/22 08:00 O2 Flow Rate 2 04/25/22 04:00 Discharge Plan Discharge Patient Disposition: Home Condition: Stable Prescriptions: No Action clopidogrel 75 mg tablet 75 mg PO DAILY albuterol sulfate [ProAir HFA] 90 mcg/actuation HFA aerosol inhaler 2 puff INHALATION Q6H PRN (Reason: Bronchodilation) nitroglycerin [Nitrostat] 0.4 mg tablet, sublingual 0.4 mg SUBLINGUAL Q5M PRN (Reason: Chest Pain) gabapentin 300 mg capsule 300 mg PO TID cholecalciferol (vitamin D3) 125 mcg (5,000 unit) capsule 125 mcg PO DAILY potassium chloride 10 mEq tablet extended release 10 meq PO DAILY Qty: 90 0RF ciprofloxacin HCl 500 mg tablet 500 mg PO BID Qty: 14 0RF Rx Instructions: rx filled 04/21/22 7d/s tramadol 50 mg Tablet 50 mg PO Q8H PRN (Reason: Pain) tamsulosin [Flomax] 0.4 mg Capsule 0.4 mg PO DAILY mirtazapine 7.5 mg Tablet 7.5 mg PO BEDTIME budesonide-formoterol [Symbicort] 160-4.5 mcg/actuation HFA aerosol inhaler 2 puff INHALATION BID isosorbide mononitrate 60 mg tablet extended release 24 hr 30 mg PO DAILY zinc 50 mg Tablet 50 mg PO DAILY aspirin 81 mg Tablet,Delayed Release (Dr/Ec) 81 mg PO DAILY Qty: 90 0RF lisinopril 20 mg tablet 10 mg PO DAILY lorazepam 1 mg tablet 1 mg PO DAILY PRN (Reason: Anxiety) sertraline 50 mg tablet 50 mg PO BEDTIME Referrals: Bishop Hall MD [Primary Care Provider] - Patient Instructions: Opioid Safety Coding Level of Care Code Acute g [facility] note Diagnoses Hypertensive emergency I16.1 Chest pain R07.9 Falls W19.XXXA Diabetes E11.9 Screening for STD (sexually transmitted disease) Z11.3 HTN (hypertension) I10 ASHD (arteriosclerotic heart disease) I25.10 AAA (abdominal aortic aneurysm) I71.4
[2022-04-25] MEDS: acetaminophen 325 mg Tablet 650 MG PO (11:58)
--- NOTE | 2022-04-25 12:01 | PC.NURSE ---
nurse at bedside with patient, patient stood up and became very dizzy pt patient, assisted pt back to bed in sitting up position, patient blood pressure obtained, sitting down 109/68, standing up 66/47. Notified Dr. Toscano who requests to ask patient if he would be agreeable to stay one more night, discussed with patient who at this time states i know my blood pressure goes low it does this at home, it does worry me some, but i can go home and be comfortable on my couch Offered patient a recliner, and alternatives to make pt comfortable, pt declines, educated pt on importance of changing positions slowly and updated Dr. Toscano with pt wishes to D/C. Pt given Tylenol.
[2022-04-25 12:30] LABS: Glucose Point of Care 189 mg/dL (70-110)
--- NOTE | 2022-04-25 12:48 | CT_ITS ---
WS: [id number] CT ANGIOGRAPHY ABDOMEN AND PELVIS. HISTORY: Chest pain, abdominal aorta aneurysm. TECHNIQUE: CT angiogram is performed during IV injection. Reformation images reviewed. All CT scans a [employer] use at least one of these dose optimization techniques: automated exposure contro l; mA and/or kV adjustment per patient size (includes targeted exams where dose is matched to clinica l indication); or iterative reconstruction. CONTRAST: Omnipaque 350; 95 mL IV. DLP: 795.85 mGy.cm COMPARISON: 04/24/2022, 12/16/2020 and 08/22/2020 Noncalcified slightly lobulated nodule medial RIGHT lower lobe measures 13 mm. No change since 020. Heart is normal size. Small hiatal hernia. Prior cholecystectomy. Liver is normal size. Moderate atrophy of the pancreas. New acute inflammatory process is noted at the duodenal C-loop and along th e pancreatic head since 04/24/2022. Loss of the normal fat plane that was evident on the prior study. There is a small amount of free fluid just lateral to the proximal duodenum and there is wall thicken ing involving the second portion of the duodenum and extending to involve the lateral head of the joseph creas. This may extend to involve the ampulla although there is no bile duct obstruction or pancreati c duct obstruction. These findings were not present on the study performed the prior day. Spleen is n ormal. No adrenal mass. Bilateral renal cysts. Mild renal atrophy. Abdominal aorta: Marked aneurysmal dilatation of the abdominal aorta. Maximum transverse diameter is 5.3 cm. Aneurysm extends over a length of 8.4 cm. There is no evidence for rupture or periaortic hakan dilshad. Large amount of circumferential thrombus surrounding the opacified lumen which is posteriorly d isplaced. Thrombus measures up to 3.5 cm. Remaining aortic lumen diameter is 0.8 x 1.7 cm distally. C eliac axis and SMA are patent. Extensive calcified plaque continues into the common iliac arteries. Mild stenosis throughout the RIG HT common and external iliac arteries. More heavily diseased internal iliac artery. High-grade stenos is involving the origins of the internal and external iliacs on the LEFT. Stenosis estimated around 7 0%. Additional 70% stenosis in the mid LEFT external iliac artery. Additional high-grade stenosis at the origin of the LEFT SFA. Mesenteric arteries are patent. Ventral abdominal wall hernia contains fat. Distal colonic diverticulosis. No GI tract obstruction. Prostate gland is enlarged encroaching into the urinary bladder. Mild bladder wall thickening but thi s is probably related to underdistention. CT/CT angio abdomen pelvis [id number] IMPRESSION: 1. Large abdominal aortic aneurysm without rupture. Maximum diameter of the an eurysm is 5.3 cm. 2. Mild stenosis distal abdominal aorta. 3. Multilevel areas of stenosis involving the common, internal and external il iac artery and the proximal LEFT SFA. Most significant stenosis near 70% involv ing the LEFT internal iliac artery and the proximal LEFT SFA. 4. New inflammatory process centered at the duodenal C-loop and the lateral pa ncreatic head. There is wall thickening and new inflammatory fat stranding and a small amount of fluid. Loss of the normal fat plane between the pancreatic he ad and duodenum. Increased soft tissue thickening and enhancement along the med ial duodenal head near the ampulla of Vater. There is no duct dilatation. This may be inflammatory but early neoplasm needs to be considered at the ampulla of Vater. Consider endoscopic evaluation. MRCP may provide additional information considering the distal common bile duct and the duodenal C-loop.
--- NOTE | 2022-04-25 12:55 | P.PN_ITS ---
Subjective Subjective: Initially today there was a plan to discharge him home with outpatient Dr. Gee's appointment because of his big AAA Dr. Gee is not available today to see him he is in [facility] He became diaphoretic and became orthostatic positive around 10 AM I discontinued the Flomax, patient still wanted to go home, I have discontinued my discharge orders, I am requesting another CTA abdomen to rule out AAA rupture or dissection I have updated his sister as well I am doing a stat CT abdomen and then transfer him to ICU Patient is DNR/DNI In case of any worsening of AAA, he will need to be transferred Patient worked with PT as well today he was not dizzy during that session Vitals/I&O/Wt Last Vital Signs Temp 98.8 F 04/25/22 12:00 Pulse 73 04/25/22 12:00 Resp 17 04/25/22 12:00 BP 71/39 04/25/22 12:00 Pulse Ox 95 04/25/22 12:00 O2 Del Method 04/25/22 12:00 O2 Flow Rate 2 04/25/22 04:00 04/24/22 04/25/22 04/25/22 22:59 06:59 14:59 Intake Total 120 / 360 100 / 460 60 / 60 Output Total 400 / 402 Balance -280 / -42 100 / 58 60 / 60 Weight last 48 hrs Weight 102.058 kg Physical Exam Narrative: Patient was awake and alert On room air Pleasant cooperative Orthostatic positive Abdomen soft Distended, Awake and alert Nonfocal neuro exam Patient was able to work with PT as well Data : 04/25/22 04:26 04/25/22 04:26 Micro: Microbiology 04/24/22 05:18 Blood Culture - Preliminary Blood NEGATIVE TO DATE 04/24/22 05:18 Blood Culture - Preliminary Blood NEGATIVE TO DATE A&P Assessment and plan (1) AAA (abdominal aortic aneurysm): Status: Acute (2) Hypertensive emergency: Status: Acute (3) Falls: Status: Acute (4) Diabetes: Status: Acute (5) Screening for STD (sexually transmitted disease): Status: Acute (6) Tobacco abuse: Status: Acute (7) HTN (hypertension): Status: Acute (8) ASHD (arteriosclerotic heart disease): Status: Acute Plan Hypertensive urgency patient received Cardene drip and then transition to p.o. meds This morning he is hypotensive Diaphoretic We will obtain another CTA on stat basis Give him a liter bolus Transfer to ICU Sister updated He is DNR/DNI In case of any AAA compromise he will need to be transferred to a tertiary center He recent received stent in his heart that is why he is getting aspirin and Plavix PSA is high as well No active chest pain This is a very challenging situation, if we do not control his blood pressure aggressively he is at risk of rupture of AAA, with aggressive antihypertensive regimen he becomes hypotensive and dizzy Discontinue Flomax Attestations Medical Necessity Statement*: Continue hospitalization for now Time Spent in Patient Care: 40 Coding Level of Care Code Acute Director Of Archives for g Fwd Diagnoses AAA (abdominal aortic aneurysm) I71.4 Hypertensive emergency I16.1 Falls W19.XXXA Diabetes E11.9 Screening for STD (sexually transmitted disease) Z11.3 Tobacco abuse Z72.0 HTN (hypertension) I10 ASHD (arteriosclerotic heart disease) I25.10
[2022-04-25] MEDS: iohexol 350 mg/mL 100 mL Btl IV (13:20)
--- NOTE | 2022-04-25 13:40 | PC.NURSE ---
around 1245pm pt with c/o feeling dizzy and foggy in the head while sitting in chair, obtained patient vital signs, R arm 71/39, L arm 69/34, patient diaphoretic, clammy with c/o of back and stomach pain, notified Dr. Toscano orders for stat CTA, bolus 1000ml of NS.
--- NOTE | 2022-04-25 14:37 | ECG_ITS ---
[facility] Test Date: 2022-04-25 Pat Name: Jose Perkins Department: Room: 254 Gender: Male Manager Compliance: : 1945 Requested By: Love Toscano Order Number: [id number] Asael MD: Uma Patel M.D. Measurements Intervals [place] Rate: 60 P: 91 OK: 175 QRS: 29 QRSD: 109 T: 62 QT: 435 QTc: 435 Interpretive Statements SINUS RHYTHM POSSIBLE INFERIOR MYOCARDIAL INFARCTION , PROBABLY OLD [30 ms Q WAVE IN II/aVF] Nonspecific T wave changes Compared to ECG 04/24/2022 06:00:01 Myocardial infarct finding now present Intraventricular conduction delay no longer present T-wave abnormality no longer present Electronically Signed On 04-25-2022 18:30:05 CDT by Uma Patel M.D. [email or web address].[employer]/store/OM/[id number]
[2022-04-25] MEDS: sodium chloride 0.9% 1,000 ML 1000 ML IV (14:57)
[2022-04-25 17:11] LABS: Glucose Point of Care 160 mg/dL (70-110)
--- NOTE | 2022-04-25 17:44 | PC.NURSE ---
order clarification, pt scheduled to receive labetalol and lisinopril at 1800, order to hold medication at [address] Toscano.
[2022-04-25] MEDS: insulin lispro 100 unit/1 mL SUBCUT (18:03)
--- NOTE | 2022-04-25 19:18 | PC.NURSE ---
Per report from day shift nurse Sheron, Dr. Toscano said to keep patient on med-surg at this time.
[2022-04-25] MEDS: TRAMadol 50 mg Tablet PO (19:57)
[2022-04-25] MEDS: atorvastatin 40 mg Tablet PO (19:57)
[2022-04-25] MEDS: cefUROXime 250 mg Tablet 500 MG PO (19:57)
--- NOTE | 2022-04-25 21:22 | PC.NURSE ---
Dr. Mosher notified of patient requesting a nasal spray for nasal congestion.
[2022-04-25 21:36] LABS: Glucose Point of Care 111 mg/dL (70-110)
[2022-04-25] MEDS: fluticasone nasal spray 16gm Btl 1 SPRAY NASAL (21:48)
--- NOTE | 2022-04-25 22:35 | ECG_ITS ---
[facility] Test Date: 2022-04-25 Pat Name: Jose Perkins Department: Room: 250 Gender: Male Library Circulation Department Chief: : 1945 Requested By: Johnson Mosher Order Number: [id number] Asael MD: Dalton Stephenson M.D. Measurements Intervals [place] Rate: 62 P: 91 SC: 184 QRS: 46 QRSD: 118 T: 60 QT: 415 QTc: 424 Interpretive Statements SINUS RHYTHM Compared to ECG 04/25/2022 14:37:24 Myocardial infarct finding no longer present T-wave abnormality no longer present Electronically Signed On 04-26-2022 20:34:09 CDT by Dalton Stephenson M.D. [email or web address]. [email or web address] ([facility] centerFiscalNotecleveland clinic [facility].[employer]/store/OM/[id number]
[2022-04-25] MEDS: morphine 4 mg/mL SDV 1 mL 2 MG IVP (22:39)
--- NOTE | 2022-04-25 23:01 | PC.NURSE ---
Patient c/o pain to chest, left arm and back. EKG and vitals taken. PRN Morphine given, which resolved pain.
[2022-04-26] VITALS (16 sets, daily range): BP systolic 87–160; BP diastolic 47–85; PULSE 64–71; RESP 16–20; TEMP 36.4–36.7; O2SAT 91–96
[2022-04-26] MEDS: morphine 4 mg/mL SDV 1 mL 2 MG IVP (02:48)
[2022-04-26 04:55] LABS: Basophils # 0.1 10^3/uL (0.0-0.1); Basophils % 0.4 %; Eosinophils # 0.5 10^3/uL (0.0-0.8); Eosinophils % 3.4 %; Hemoglobin 15.5 g/dL (11.7-16.6); Lymphocytes # 4.1 10^3/uL (0.8-4.8); Lymphocytes % 30.3 %; Mean Corpuscular Hemoglobin 32.4 pg (28.0-34.0); Mean Corpuscular Volume 98.3 fl (80-94); Mean Platelet Volume 10.5 fL (7.4-10.4); Monocytes % 7.8 %; Neutrophils # 7.76 10^3/uL (1.8-7.7); Neutrophils % 57.8 %; Nucleated Red Blood Cells % 0 %; Platelet Count 208 10^3/cmm (130-400); Red Blood Count 4.78 10^6/uL (4.1-5.3); Red Cell Distribution Width 13.3 % (12.1-15.1); White Blood Count 13.4 10^3/uL (4.0-10.0)
[2022-04-26 05:22] LABS: Alanine Aminotransferase 34 U/L (0-41); Albumin Level 3.3 g/dL (3.5-5.2); Alkaline Phosphatase 73 IU/L (40-130); Blood Urea Nitrogen 19 mg/dL (8-23); Calcium 9.1 mg/dL (8.5-10.5); Carbon Dioxide 26 mmol/L (22-29); Chloride 104 mmol/L (98-107); Glucose 95 mg/dL (65-115); Lipase 151 U/L (13-60); Magnesium 1.7 mg/dL (1.7-2.3); Osmolality Calculated 294 mOsm/kg (285-295); Phosphorus 2.6 mg/dL (2.5-4.5); Sodium 141 mmol/L (136-145); Total Bilirubin 0.9 mg/dL (0.15-1.2); Total Protein 6.3 g/dL (6.6-8.7)
[2022-04-26 05:25] LABS: Anion Gap 14.5 (5-19); Aspartate Amino Transferase 44 U/L (0-40); Potassium 3.5 mmol/L (3.5-5.1)
[2022-04-26] MEDS: TRAMadol 50 mg Tablet PO ×2 (05:45→18:38)
--- NOTE | 2022-04-26 06:37 | PC.NURSE ---
Addendum entered by Jeanne Liriano RN 04/26/22 06:44: See orders/mar and vitals. Original Note: Patient c/o shortness of breath and chest pain at this time. EKG and vitals taken. Dr. Toscano notified.
[2022-04-26] MEDS: isosorbide mononitrate ER 60 mg Tablet PO (06:46)
[2022-04-26] MEDS: lisinopril 20 mg Tablet PO (06:46)
[2022-04-26 06:47] LABS: Treponema pallidum Ab REACTIVE (NON-REACTIVE)
--- NOTE | 2022-04-26 06:51 | ECG_ITS ---
[facility] Test Date: 2022-04-26 Pat Name: Jose Perkins Department: Room: 250 Gender: Male Global Climate Change Researcher: : 1945 Requested By: Johnson Mosher Order Number: [id number] Asael MD: Dalton Stephenson M.D. Measurements Intervals [place] Rate: 67 P: 152 VA: 153 QRS: 141 QRSD: 119 T: 150 QT: 411 QTc: 436 Interpretive Statements SINUS RHYTHM POSSIBLE RIGHT VENTRICULAR HYPERTROPHY [SOME/ALL OF: PROMINENT R IN V1, LATE TRANSITION, RAD, CARLOS, SSS] Compared to ECG 04/25/2022 22:39:00 No significant changes Electronically Signed On 04-26-2022 20:33:58 CDT by Dalton Stephenson M.D. [email or web address] medical centerMindShare Networksmemorial health system.[employer]/store/OM/[id number]
[2022-04-26 07:04] LABS: Glucose Point of Care 136 mg/dL (70-110)
[2022-04-26 07:41] LABS: Troponin T (5th) Once 20 ng/L (0-15)
[2022-04-26] MEDS: clopidogrel 75 mg Tablet PO (07:55)
[2022-04-26] MEDS: aspirin 81 mg EC Tablet PO (07:55)
[2022-04-26] MEDS: sertraline 50 mg Tablet PO (07:55)
[2022-04-26] MEDS: enoxaparin 40 mg/0.4 mL Syringe SUBCUT (07:55)
[2022-04-26] MEDS: cefUROXime 250 mg Tablet 500 MG PO ×2 (07:55→17:31)
[2022-04-26] MEDS: ipratropium-albuterol 3 mL Neb INHALATION (08:45)
--- NOTE | 2022-04-26 09:20 | XRR_ITS ---
PROCEDURE INFORMATION: Exam: XR Chest Exam date and time: 04/26/2022 11:57 AM Age: 76 years old Clinical indication: Other: Hypoxia; Additional info: Hypoxia; Per PT left sided chest and arm pain x2-3 days TECHNIQUE: Imaging protocol: Radiologic exam of the chest. Views: 1 view. COMPARISON: CR (CHEST, ) 04/24/2022 12:13 AM FINDINGS: Lungs: Emphysematous change , interstitial prominence, and mild airspace disease. Pleural spaces: No pleural effusion. Heart/Mediastinum: No cardiomegaly. Vasculature: Ectasia of the thoracic aorta. Bones/joints: Degenerative change. XR/XR chest 1V portable [id number] IMPRESSION: Emphysematous change , interstitial prominence, and mild airspace disease.
--- NOTE | 2022-04-26 09:20 | PC.NURSE ---
Order to hold Labetalol this morning by Dr. Toscano.
[2022-04-26] MEDS: lidocaine 2% viscous 15 ML, aluminum-mag hydrox-simethicon 30 ML, sucralfate oral liq 1 GM PO (09:52)
--- NOTE | 2022-04-26 10:05 | PC.NURSE ---
Notified Dr. Toscano of patient blood pressure 84/47 with c/o chest pain, orders to give GI cocktail at this time. awaiting chest xray. Patient resting in bed AlertX4. Patient given GI cocktail.
[2022-04-26 10:28] LABS: Alcohol Level < 10 mg/dL (0-10)
--- NOTE | 2022-04-26 11:03 | PC.NURSE ---
Dr. Toscano at bedside, BO to D/C PO morphine order, Resume home dose of Gabapentin 300mg PO TID, Hold labetalol if systolic is less than 100 and or pulse is less than 60, Renew current Tramdol order. Possible discharge Thursday.
[2022-04-26 11:22] LABS: Glucose Point of Care 151 mg/dL (70-110)
--- NOTE | 2022-04-26 12:37 | PM.PN ---
Subjective Subjective: Labile blood pressure I did discuss his case with Dr. Jernigan and Dr. Painting His titer is pretty low to cause active syphilis manifestation Dr. Painting is leaning towards inner ear pathology, she thinks there was an MRI in the past which showed inner ear pathology such as mass Patient is not confused This morning he was complaining of left arm pain, EKG unremarkable troponin 20, no active chest pain however patient is stating that he slept on his left arm He was on 2 L, requested chest x-ray, he was saturating 93% I asked nurse to wean him off to room air I have requested patient to stay until Thursday to get appointment with Dr. Gee and meanwhile we can adjust his blood pressure medications For now I have reduced the dose of Imdur to 30 mg daily and labetalol 300 mg twice daily I have discontinued lisinopril Tamsulosin discontinue Vitals/I&O/Wt Last Vital Signs Temp 97.6 F 04/26/22 11:40 Pulse 71 04/26/22 11:40 Resp 18 04/26/22 11:40 BP 103/59 04/26/22 11:40 Pulse Ox 91 04/26/22 11:40 O2 Del Method 04/26/22 11:40 O2 Flow Rate 2 04/26/22 11:40 04/25/22 04/26/22 04/26/22 22:59 06:59 14:59 Intake Total 1240 / 1540 240 / 240 Output Total 225 / 225 550 / 775 Balance 1015 / 1315 -550 / 765 240 / 240 Physical Exam Narrative: Awake and alert Pleasant cooperative Nonfocal neuro exam Abdomen soft S1, S2 I do not appreciate any crackles or wheezing Lungs are clear to auscultation Nonfocal neuro exam EOMI, PERRLA Lower extremity no edema no signs of tick bites Data : 04/26/22 04:05 04/26/22 04:05 Micro: Microbiology 04/24/22 17:30 Urine Culture - Final Urine,Voided A&P Assessment and plan (1) AAA (abdominal aortic aneurysm): Status: Acute (2) Hypertensive emergency: Status: Acute (3) Chest pain: Status: Acute (4) Falls: Status: Acute (5) Nausea and vomiting: Status: Acute (6) Diabetes: Status: Acute (7) Screening for STD (sexually transmitted disease): Status: Acute (8) HTN (hypertension): Status: Acute Plan Hypertensive urgency Resolved Patient blood pressure is labile This morning he was hypotensive again, I have discontinued lisinopril, reduce the dose of Imdur and continue labetalol because of his AAA With AAA Target blood pressure should be at least below 120 mmHg and heart rate below 70 Planning to keep him here until Thursday set up close follow-up with Dr. Gee Ataxia, dizziness Inner ear pathology? He has been treated with doxycycline, patient was not willing to travel to attend his appointments, he has allergy to penicillin we do not have penicillin desensitization program Titer is not remarkably high to need IV penicillin for now he is not confused, Pancreatitis Clear liquid diet, advance gradually Lipase is high Tolerating his diet No active worsening abdominal pain PSA is high as well, not sure if he has any underlying malignancy Recent RCA stent by Dr. Stephenson, left circumflex was not amenable to intervention Continue aspirin Plavix Patient is DNR/DNI Clinical diet DVT prophylaxis on board Attestations Medical Necessity Statement*: Patient will need to stay in the hospital at least until Thursday Time Spent in Patient Care: 40 Coding Level of Care Code Acute Workgroup Leader for [facility] Fwd Diagnoses AAA (abdominal aortic aneurysm) I71.4 Hypertensive emergency I16.1 Chest pain R07.9 Falls W19.XXXA Nausea and vomiting R11.2 Diabetes E11.9 Screening for STD (sexually transmitted disease) Z11.3 HTN (hypertension) I10
[2022-04-26] MEDS: gabapentin 300 mg Capsule PO ×2 (13:21→19:10)
[2022-04-26 16:49] LABS: Glucose Point of Care 115 mg/dL (70-110)
[2022-04-26] MEDS: labetalol 200 mg Tablet 300 MG PO (17:30)
[2022-04-26] MEDS: atorvastatin 40 mg Tablet PO (19:10)
[2022-04-26 20:09] LABS: Glucose Point of Care 164 mg/dL (70-110)
--- NOTE | 2022-04-26 22:22 | PC.NURSE ---
Addendum entered by Jeanne Liriano RN 04/27/22 00:38: Dr. Mosher notified of potassium of 3.0. See orders. Original Note: Patient had several runs of what appeared to be v-tach on heart monitor. Patient asymptomatic and VSS. Dr. Mosher notified. See orders.
--- NOTE | 2022-04-26 22:25 | ECG_ITS ---
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 Measurements Intervals [place] Rate: 64 P: 13 [place]: 158 QRS: 46 QRSD: 121 T: 53 QT: 431 QTc: 445 Interpretive Statements SINUS RHYTHM Compared to ECG 04/26/2022 06:51:54 Atrial abnormality no longer present Electronically Signed On 04-28-2022 17:42:13 CDT by Dalton Stephenson M.D. [id number]
[2022-04-26 23:51] LABS: Alanine Aminotransferase 27 U/L (0-41); Albumin Level 3.2 g/dL (3.5-5.2); Alkaline Phosphatase 70 IU/L (40-130); Anion Gap 13.9 (5-19); Aspartate Amino Transferase 27 U/L (0-40); Blood Urea Nitrogen 16 mg/dL (8-23); Calcium 8.8 mg/dL (8.5-10.5); Carbon Dioxide 27 mmol/L (22-29); Chloride 102 mmol/L (98-107); Globulin 2.7 g/dL (1.3-4.6); Glucose 156 mg/dL (65-115); Magnesium 1.7 mg/dL (1.7-2.3); Osmolality Calculated 294 mOsm/kg (285-295); Sodium 140 mmol/L (136-145); Total Bilirubin 0.6 mg/dL (0.15-1.2); Total Protein 5.9 g/dL (6.6-8.7)
[2022-04-26 23:55] LABS: Troponin(5th) Baseline 17 ng/L (0-15)
[2022-04-27] VITALS (9 sets, daily range): BP systolic 110–144; BP diastolic 62–76; PULSE 58–69; RESP 16–17; TEMP 36.4–36.8; O2SAT 91–96
--- NOTE | 2022-04-27 00:13 | ECG_ITS ---
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 Measurements Intervals [place] Rate: 64 P: 93 [place]: 164 QRS: 30 QRSD: 116 T: 43 QT: 427 QTc: 441 Interpretive Statements SINUS RHYTHM MODERATE INTRAVENTRICULAR CONDUCTION DELAY [110+ ms QRS DURATION] Compared to ECG 04/26/2022 22:25:05 Intraventricular conduction delay now present Electronically Signed On 04-28-2022 17:49:29 CDT by Dalton Stephenson M.D. [id number]
[2022-04-27] MEDS: lidocaine 1% 5 ML in potassium chloride premix 100 ML 25 ML IV (01:26)
[2022-04-27] MEDS: potassium chloride ER 20 mEq Tablet 40 MEQ PO (01:26)
[2022-04-27 02:09] LABS: Troponin 5 2HR 18.79 ng/L (0-15)
[2022-04-27 02:13] LABS: Troponin 5 2HR Delta 1.79 ABS# (0-10)
[2022-04-27] MEDS: magnesium sulfate premix 4 GM/100 ML PREMIX IV (03:38)
--- NOTE | 2022-04-27 04:16 | ECG_ITS ---
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 Measurements Intervals [place] Rate: 60 P: 2 [place]: 155 QRS: 46 QRSD: 114 T: 60 QT: 427 QTc: 428 Interpretive Statements SINUS RHYTHM MODERATE INTRAVENTRICULAR CONDUCTION DELAY [110+ ms QRS DURATION] Compared to ECG 04/27/2022 00:24:29 No significant changes Electronically Signed On 04-28-2022 17:48:42 CDT by Dalton Stephenson M.D. [id number]
[2022-04-27 06:47] LABS: Glucose Point of Care 121 mg/dL (70-110)
[2022-04-27 06:47] LABS: Basophils # 0.1 10^3/uL (0.0-0.1); Basophils % 0.5 %; Eosinophils # 0.5 10^3/uL (0.0-0.8); Hematocrit 44.4 % (42.0-52.0); Hemoglobin 14.9 g/dL (11.7-16.6); Lymphocytes # 3.9 10^3/uL (0.8-4.8); Lymphocytes % 30.7 %; Mean Corpuscular HGB Conc 33.6 g/dL (30.0-36.0); Mean Corpuscular Hemoglobin 32.9 pg (28.0-34.0); Mean Platelet Volume 10.4 fL (7.4-10.4); Monocytes % 7.6 %; Neutrophils # 7.17 10^3/uL (1.8-7.7); Nucleated Red Blood Cells % 0 %; Platelet Count 196 10^3/cmm (130-400); Red Blood Count 4.53 10^6/uL (4.1-5.3); Red Cell Distribution Width 13.2 % (12.1-15.1); White Blood Count 12.6 10^3/uL (4.0-10.0)
[2022-04-27 07:31] LABS: Alanine Aminotransferase 27 U/L (0-41); Albumin Level 3.3 g/dL (3.5-5.2); Alkaline Phosphatase 71 IU/L (40-130); Aspartate Amino Transferase 27 U/L (0-40); Blood Urea Nitrogen 14 mg/dL (8-23); Calcium 9.2 mg/dL (8.5-10.5); Carbon Dioxide 28 mmol/L (22-29); Chloride 102 mmol/L (98-107); Globulin 3.1 g/dL (1.3-4.6); Glucose 93 mg/dL (65-115); Magnesium 3.3 mg/dL (1.7-2.3); Osmolality Calculated 290 mOsm/kg (285-295); Sodium 140 mmol/L (136-145); Total Bilirubin 0.7 mg/dL (0.15-1.2); Total Protein 6.4 g/dL (6.6-8.7)
[2022-04-27 07:35] LABS: Troponin 5 6HR 18.58 ng/L (0-15)
[2022-04-27 07:41] LABS: Troponin 5 6HR Delta 1.58 ng/L (0-12)
--- NOTE | 2022-04-27 09:01 | P.CONIM_ITS ---
Providers/Reason For Consult Consulting Physician/Specialty*: Dr. Gee/cardiothoracic surgery Reason for Consult*: Abdominal aortic aneurysm Requesting Physician: Dr. Toscano Attending Physician: Love Toscano MD Primary Care Provider: Bishop Hall MD History of Present Illness History of Present Illness Jose Perkins is a 76 year old male whom I been consulted to evaluate concerning an incidental finding of a 5.2 cm infrarenal abdominal aortic aneurysm identified originally on a CT scan of the chest abdomen and pelvis of April 24 and then further delineated on a CTA of the abdomen and pelvis of April 25. The studies were initiated due to complaints of chest discomfort, abdominal pain and general fatigue. He was admitted on April 24 after presenting with complaints of fatigue, malaise, dizziness, chest pain, and shortness of breath. He has recent undergone mid RCA coronary stent placement and distal RCA angioplasty in January by Dr. Stephenson. He also complained of dizziness and weakness as well as following episodes. He has been evaluated recently by ENT for hearing loss and dizziness. Head CT scan of February 02 was unremarkable. The recent CT scans and CTA have revealed a 5.3 cm infrarenal abdominal aortic a neurysm with mild distal abdominal aortic stenosis. There are multiple levels of stenosis involve the common, internal and external iliac arteries and the proximal left SFA. The most significant stenosis is 70% involving the left internal iliac artery and proximal left SFA. The study also revealed inflammatory process involving the duodenal C-loop and the lateral pancreatic head. Concerns of inflammation versus early neoplasm must be considered. I was consulted concerning the incidental finding of the abdominal aortic aneurysm which was unknown prior to the study. It is also noted that his lipase is high 151 as well as his PSA. He also had a positive RPR with a titer of 1-1. Chest x-ray is clear with some modest emphysematous changes. He does smoke about a half a pack per day though has smoked for numerous years. 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 He resides alone [facility]. His sister from [place] is here with him during my visit this morning. Review of Systems Const: Reports: fatigue and malaise; Denies: fever(s), chills or night sweats ENMT: Reports: disequilibrium; Denies: throat pain or odynophagia Card: Reports: lightheadedness and pre-syncope Resp: Denies: productive cough, non-productive cough or hemoptysis : Reports: urinary hesitancy, urinary dribbling and urinary incontinence Musc: Reports: back pain Neuro: Reports: weakness in extremities Psych: Denies: anxiety or depression Medications/Allergies Home Medications Medication Instructions Recorded Confirmed Last Taken Type albuterol sulfate 90 mcg/actuation 2 puff inhalation Q6H PRN 12/02/19 04/24/22 08/14/20 History aerosol inhaler (ProAir HFA) Bronchodilation clopidogrel 75 mg tablet 75 mg PO DAILY 12/02/19 04/24/22 02/18/22 History nitroglycerin 0.4 mg sublingual 0.4 mg sublingual Q5M PRN Chest 12/02/19 04/24/22 02/17/22 History tablet (Nitrostat) Pain gabapentin 300 mg capsule 300 mg PO TID 06/14/20 04/24/22 02/18/22 History budesonide-formoterol HFA 160 2 puff inhalation BID 06/12/21 04/24/22 02/18/22 History mcg-4.5 mcg/actuation aerosol inhaler (Symbicort) mirtazapine 7.5 mg tablet 7.5 mg PO BEDTIME 06/12/21 04/24/22 02/17/22 History tamsulosin 0.4 mg capsule (Flomax) 0.4 mg PO DAILY 06/12/21 04/24/22 02/17/22 History tramadol 50 mg tablet 50 mg PO Q8H PRN Pain 06/12/21 04/24/22 Unknown History zinc 50 mg tablet 50 mg PO DAILY 02/02/22 04/24/22 02/18/22 History aspirin 81 mg tablet,delayed 81 mg PO DAILY #90 tabs 02/05/22 04/24/22 02/18/22 Rx release potassium chloride 10 mEq 10 meq PO DAILY #90 tabs 02/13/22 04/24/22 02/18/22 Rx tablet,extended release isosorbide mononitrate 60 mg 30 mg PO DAILY 02/18/22 04/24/22 02/18/22 History tablet,extended release 24 hr cholecalciferol (vitamin D3) 125 125 mcg PO DAILY 04/11/22 04/24/22 Unknown History mcg (5,000 unit) capsule ciprofloxacin HCl 500 mg tablet 500 mg PO BID #14 tabs 04/21/22 04/24/22 Unknown Rx lisinopril 20 mg tablet 10 mg PO DAILY 04/24/22 04/24/22 Unknown History lorazepam 1 mg tablet 1 mg PO DAILY PRN Anxiety 04/24/22 04/24/22 Unknown History sertraline 50 mg tablet 50 mg PO BEDTIME 04/24/22 04/24/22 Unknown History chlorthalidone 25 mg tablet 25 mg PO DAILY #60 tabs 04/25/22 Unknown Rx lisinopril 20 mg tablet 20 mg PO BID #60 tabs 04/25/22 Unknown Rx Allergies Allergy/AdvReac Type Severity Reaction Status Date / Time Penicillins Allergy Unknown Unknown Verified 04/11/22 10:19 tirofiban Allergy Unknown Unknown Verified 04/11/22 10:19 [From Aggrastat Concentrate] shellfish derived Allergy ADR-Vomitin Verified 04/11/22 10:19 g lorazepam [From Ativan] AdvReac Severe ADR-Halluci Verified 04/24/22 02:43 nating Current Medications Generic Name Dose Route Start Last Admin Trade Name Freq PRN Reason Stop Dose Admin Acetaminophen 650 mg 04/24/22 06:32 04/25/22 11:58 Acetaminophen 325 Mg Tablet PO 650 mg Q6H PRN Administration Mild/Mod Pain Or Temp >/= 101 Albuterol/Ipratropium 3 ml 04/24/22 06:32 04/26/22 08:45 Ipratropium-Albuterol 3 Ml Neb INHALATION 3 ml Q4H PRN Administration SHORTNESS OF BREATH Aspirin 81 mg 04/24/22 09:00 04/26/22 07:55 Aspirin 81 Mg Ec Tablet PO 81 mg DAILY TOYA Administration Atorvastatin Calcium 40 mg 04/24/22 21:00 04/26/22 19:10 Atorvastatin 40 Mg Tablet PO 40 mg BEDTIME TOYA Administration Cefuroxime Axetil 500 mg 04/25/22 19:16 04/26/22 17:31 Cefuroxime 250 Mg Tablet PO 500 mg BID TOYA Administration Protocol Chlorthalidone 25 mg 04/24/22 12:20 04/25/22 09:07 Chlorthalidone 25 Mg Tablet PO 25 mg DAILY TOYA Administration Clopidogrel Bisulfate 75 mg 04/24/22 08:00 04/26/22 07:55 Clopidogrel 75 Mg Tablet PO 75 mg DAILY@08 TOYA Administration Enoxaparin Sodium 40 mg 04/24/22 09:00 04/26/22 07:55 Enoxaparin 40 Mg/0.4 Ml Syringe SUBCUT 40 mg Q24H TOYA Administration Fluticasone Propionate 1 spray 04/25/22 21:24 04/25/22 21:48 Fluticasone Nasal [place] 16gm Btl NASAL 1 spray BID PRN Administration nasal congestion Gabapentin 300 mg 04/26/22 14:00 04/26/22 19:10 Gabapentin 300 Mg Capsule PO 300 mg TID TOYA Administration Insulin Human Lispro 0 unit 04/24/22 08:00 04/27/22 07:23 Insulin Lispro 100 Unit/1 Ml SUBCUT Not Given TIDWM [facility] Protocol Labetalol HCl 300 mg 04/25/22 09:50 04/26/22 17:30 Labetalol 200 Mg Tablet PO 300 mg BID TOYA Administration Morphine Sulfate 2 mg 04/24/22 06:32 04/26/22 02:48 Morphine 4 Mg/Ml Sdv 1 Ml IVP 2 mg Q4H PRN Administration SEVERE PAIN Sertraline HCl 50 mg 04/24/22 09:00 04/26/22 07:55 Sertraline 50 Mg Tablet PO 50 mg DAILY TOYA Administration Tramadol HCl 50 mg 04/24/22 06:32 04/26/22 18:38 Tramadol 50 Mg Tablet PO 50 mg Q8H PRN Administration MODERATE PAIN PFSH Acute PFSH: Medical History ASHD (arteriosclerotic heart disease) BPH (benign prostatic hyperplasia) COPD (chronic obstructive pulmonary disease) CVA (cerebral vascular accident) Depression Diabetes GERD (gastroesophageal reflux disease) HTN (hypertension) Hyperlipidemia Peripheral neuropathy Syphilis (acquired) Tobacco abuse Surgical History History of appendectomy S/P cataract extraction S/P tonsillectomy Family History Father Cancer Mother Diabetes Social History Smoking and tobacco status: current every day smoker cigarettes Packs smoked per day: 0.25 Alcohol intake: former Adopted: No Caregiver/support person: No Lives independently: Yes Household members: none Housing: Apartment Marital status: Current occupational status: disabled Pets and animals: No Current gender identity: Male Vitals/I&O/Wt Last Vital Signs Temp 97.6 F 04/27/22 07:38 Pulse 68 04/27/22 08:00 Resp 16 04/27/22 08:00 BP 110/75 04/27/22 07:38 Pulse Ox 92 04/27/22 08:00 O2 Del Method 04/27/22 08:00 O2 Flow Rate 2 04/26/22 22:23 04/26/22 04/27/22 04/27/22 22:59 06:59 14:59 Intake Total 240 / 1080 205 / 1285 Output Total 1025 / 1025 325 / 1350 Balance -785 / 55 -120 / -65 Physical Exam Const: COMMON NORMALS: no acute distress, average body habitus and patient oriented x3 HENMT: COMMON NORMALS: normocephalic, atraumatic and Normal external nose pres ent; hearing grossly not normal bilaterally HEAD & SCALP: normocephalic and atraumatic NOSE: Normal external nose present Eye: COMMON NORMALS: Equal, round and reactive pupils present, EOMs intact bilaterally and no scleral icterus PUPIL: Yes Equal, round and reactive pupils present Neck/C-Spine: COMMON NORMALS: full ROM, no lymphadenopathy and No carotid bruits Chest: COMMONS NORMALS: normal palpation of entire chest wall Resp: COMMON NORMALS: normal respiratory effort and clear to auscultation b ilaterally AUSCULTATION: clear to auscultation bilaterally Cardio: COMMON NORMALS: regular rate, regular rhythm, S1 normal heart sound present, No murmurs present (Cardio) and No rub (Cardio) RATE: regular rate RHYTHM: regular rhythm HEART SOUNDS: S1 normal heart sound present PERIPHERAL PULSES: radial pulses present positive bilateral 2+, femoral pulses present positive bilateral 2+, popliteal pulses present positive right 1+ and positive left 2+ and dorsalis pedis present positive bilateral diminished GI: PALPATION: Yes Tenderness to palpation present (GI) (Midepigastric without rebound), Yes Pulsatile mass present and No Ascites present Extremity: COMMON NORMALS: no clubbing, cyanosis or edema Neuro: COMMON NORMALS: patient oriented x3, moves all extremities, no focal motor deficits and no sensory deficits noted Psych: COMMON NORMALS: mental status grossly normal, Normal thought process present, cooperative, normal affect and speech normal SPEECH: Yes normal speech THOUGHT PROCESS: Normal thought process present Data : 04/27/22 05:20 04/27/22 05:20 Micro: Microbiology 04/24/22 17:30 Urine Culture - Final Urine,Voided CT Abd/Pel: Radiologist's impression: 1.? Large abdominal aortic aneurysm without rupture. Maximum diameter of the aneurysm is 5.3 cm. 2.? Mild stenosis distal abdominal aorta. 3.? Multilevel areas of stenosis involving the common, internal and external iliac artery and the proximal LEFT SFA. Most significant stenosis near 70% involving the LEFT internal iliac artery and the proximal LEFT SFA. 4.? New inflammatory process centered at the duodenal C-loop and the lateral pancreatic head. There is wall thickening and new inflammatory fat stranding and a small amount of fluid. Loss of the normal fat plane between the pancreatic head and duodenum. Increased soft tissue thickening and enhancement along the medial duodenal head near the ampulla of Vater. There is no duct dilatation. This may be inflammatory but early neoplasm needs to be considered at the ampulla of Vater. Consider endoscopic evaluation. MRCP may provide additional information considering the distal common bile duct and the duodenal C-loop. ? A&P Assessment and plan (1) AAA (abdominal aortic aneurysm): 5.3 cm infrarenal abdominal aortic aneurysm. I have personally reviewed the studies. I have conferred with our [facility] team and endovascular grafting planning has been completed. It appears Mr. Perkins does meet anatomical qualifications to consider endovascular repair. Given his labile blood pressure and hypertensive periods, it would be prudent to consider repair during this hospitalization. Rationale for this was carefully and frankly discussed with Mr. Perkins and his sister who was present during my evaluation this morning. Numerous questions answered. He is agreeable to proceed. Details and risks of the procedure were carefully and frankly discussed. Risks reviewed include the possibility of , stroke, heart attack, major bleeding, infection, pneumonia, organ failure, acute ischemia to lower extremities requiring urgent attempt at revascularization or possible subsequent major amputation, acute renal failure which may not be recoverable and required dialysis, failure to benefit, prolonged hospital stay, pain after the procedure, need for further procedures, inability to complete the procedure, and possible need for long-term followup. All questions were answered. Appropriate consents will be provided for review and signature. We will tentatively plan for attempted endovascular pair on April 29. Status: Acute Consult Attestations Medical Necessity Statement: 5.3 cm abdominal aortic aneurysm Coding Level of Care Code New Pt Acute Educational Assistant Teacher for [facility] Fwd Patient Type New History Detailed Exam Detailed Medical Decision Making Moderate Complexity Diagnoses AAA (abdominal aortic aneurysm) I71.4 Time Spent (min) 45
[2022-04-27] MEDS: enoxaparin 40 mg/0.4 mL Syringe SUBCUT (09:12)
[2022-04-27] MEDS: cefUROXime 250 mg Tablet 500 MG PO ×2 (09:13→17:21)
[2022-04-27] MEDS: labetalol 200 mg Tablet 300 MG PO (09:13)
[2022-04-27] MEDS: clopidogrel 75 mg Tablet PO (09:14)
[2022-04-27] MEDS: gabapentin 300 mg Capsule PO ×3 (09:14→20:32)
[2022-04-27] MEDS: mupirocin oint 22 gm 1 APPLIC NOSTRIL-B (09:14)
[2022-04-27] MEDS: sertraline 50 mg Tablet PO (09:15)
[2022-04-27] MEDS: chlorhexidine gluconate 4% Btl 118 mL 1 APPLIC TOPICAL (09:21)
[2022-04-27] MEDS: vancomycin 1,500 MG/300 ML PIGGYBACK 200 MG IV (09:21)
--- NOTE | 2022-04-27 10:28 | PC.NURSE ---
pt bp 87/54 after receiving morning labetalol. [place] notified. Physician reported will d/c med and make changes to antihypertensive med.
--- NOTE | 2022-04-27 10:32 | PC.NURSE ---
pt bp 106/66 upon recheck. physician notified.
[2022-04-27 11:02] LABS: Glucose Point of Care 118 mg/dL (70-110)
[2022-04-27] MEDS: fluticasone nasal spray 16gm Btl 1 SPRAY NASAL (11:29)
--- NOTE | 2022-04-27 11:29 | PM.PN ---
Subjective Subjective: This morning patient experienced a brief episode of shortness of breath however when I examined him he was on room air saturating well, blood pressure is stable, I will cut back on his labetalol Imdur and syncopal discontinued Appreciate Dr. Gee's recommendations Plan for surgery on Thursday Patient can take aspirin and Plavix until that surgery there is no need to hold these important medications, I have updated his nurse as well Vitals/I&O/Wt Last Vital Signs Temp 97.6 F 04/27/22 07:38 Pulse 68 04/27/22 08:00 Resp 16 04/27/22 08:00 BP 110/75 04/27/22 07:38 Pulse Ox 92 04/27/22 08:00 O2 Del Method 04/27/22 08:00 O2 Flow Rate 2 04/26/22 22:23 04/26/22 04/27/22 04/27/22 22:59 06:59 14:59 Intake Total 240 / 1080 205 / 1285 240 / 240 Output Total 1025 / 1025 325 / 1350 Balance -785 / 55 -120 / -65 240 / 240 Physical Exam Narrative: Patient is resting comfortably He is orthostatic positive Feeling dizzy on standing up I will give him gentle fluid hydration today Nonfocal neuro exam Satting well on room air Distended abdomen Abdominal pain Data : 04/27/22 05:20 04/27/22 05:20 Micro: Microbiology 04/24/22 17:30 Urine Culture - Final Urine,Voided A&P Assessment and plan (1) AAA (abdominal aortic aneurysm): Status: Acute (2) Hypertensive emergency: Status: Acute (3) Chest pain: Status: Acute (4) Orthostatic dizziness: Status: Acute (5) Falls: Status: Acute (6) Diabetes: Status: Acute (7) Tobacco abuse: Status: Acute (8) HTN (hypertension): Status: Acute (9) PSA elevation: Status: Acute Plan AAA 5.[address] Gee planning for endovascular intervention on Thursday We do not have to hold his aspirin and Plavix Please do not hold dual antiplatelet therapy because of his recent RCA stent Hypertensive emergency: Patient is orthostatic I will give him gentle fluid hydration I will change his antihypertensive regimen Abnormal PSA Pancreatic head mass inflammation however patient is able to tolerate diet, will advance to GI soft Lipase was high No clinical signs of pancreatitis Recurrent shortness of breath Related to anxiety He has never been hypoxic Satting well on room air Chest x-ray unremarkable Troponin unremarkable 1 episode of nonsustained V. tach noted overnight electrolytes are normal currently on labetalol Patient is DNR/DNI Intervention on Thursday Might need rehab at the time of discharge Attestations Medical Necessity Statement*: Continue hospitalization Time Spent in Patient Care: 30 Coding Level of Care Code Acute Ecommerce Analyst for [facility] Fwd Diagnoses AAA (abdominal aortic aneurysm) I71.4 Hypertensive emergency I16.1 Chest pain R07.9 Orthostatic dizziness R42 Falls W19.XXXA Diabetes E11.9 Tobacco abuse Z72.0 HTN (hypertension) I10 PSA elevation R97.20
[2022-04-27] MEDS: sodium chloride 0.9% 1,000 ML 30 ML IV (13:39)
--- NOTE | 2022-04-27 14:17 | PC.SOCIAL ---
IMM UPDATED IMM dated and initialed and copy placed in chart and copy given to patient
[2022-04-27 16:38] LABS: Add Urine Microscopic? NO; Charge for UA Resulting for Rev
[2022-04-27 16:52] LABS: Bilirubin Urine Neg (Negative); Blood Urine Neg (Negative); Glucose Urine UA Norm (Normal); Ketones Urine Negative (Negative); Leukocyte Esterase Urine Negative (Negative); Nitrate Urine Negative (Negative); Protein Urine Neg (Negative); Specific Gravity, Urine 1.015 (1.005-1.030); Urine Appearance Clear (CLEAR); Urine Color Straw (Yellow); Urobilinogen Urine Norm (Negative); pH Urine 6 (5-7)
[2022-04-27 17:17] LABS: Glucose Point of Care 136 mg/dL (70-110)
[2022-04-27] MEDS: labetalol 200 mg Tablet 100 MG PO (17:22)
[2022-04-27] MEDS: TRAMadol 50 mg Tablet PO (19:51)
[2022-04-27] MEDS: atorvastatin 40 mg Tablet PO (20:32)
[2022-04-27 20:56] LABS: Glucose Point of Care 91 mg/dL (70-110)
[2022-04-27] MEDS: CLONazepam 0.5 mg Tablet 0.25 MG PO (23:28)
[2022-04-28] VITALS (10 sets, daily range): BP systolic 134–170; BP diastolic 58–85; PULSE 55–64; RESP 16–18; TEMP 36.5–36.8; O2SAT 93–98
[2022-04-28] MEDS: TRAMadol 50 mg Tablet PO ×2 (04:35→20:53)
[2022-04-28 06:36] LABS: Glucose Point of Care 110 mg/dL (70-110)
[2022-04-28] MEDS: sertraline 50 mg Tablet PO (09:14)
[2022-04-28] MEDS: cefUROXime 250 mg Tablet 500 MG PO ×2 (09:14→17:22)
[2022-04-28] MEDS: fluticasone nasal spray 16gm Btl 1 SPRAY NASAL (09:14)
[2022-04-28] MEDS: clopidogrel 75 mg Tablet PO (09:15)
[2022-04-28] MEDS: labetalol 200 mg Tablet 100 MG PO ×2 (09:15→17:22)
[2022-04-28] MEDS: aspirin 81 mg EC Tablet PO (09:16)
[2022-04-28] MEDS: gabapentin 300 mg Capsule PO ×3 (09:16→20:55)
[2022-04-28] MEDS: chlorhexidine gluconate 4% Btl 118 mL 1 APPLIC TOPICAL (09:18)
[2022-04-28 11:10] LABS: Glucose Point of Care 166 mg/dL (70-110)
[2022-04-28] MEDS: ALPRAZolam 0.5 mg Tablet PO ×2 (11:58→20:55)
--- NOTE | 2022-04-28 12:38 | P.PN_ITS ---
Subjective Subjective: This morning patient is stating that he had 1 panic attack, he was asking for some antianxiety medications I have added Xanax I did update his sister regarding our plans Dr. Gee called me to update that because of staffing issues he will not be able to operate on him tomorrow, Patient wants to be discharged to go to residential, Dr. Gee will plan his endovascular repair of AAA within a month He has been hypertensive overnight with labetalol 100 mg twice daily I will add chlorthalidone Vitals/I&O/Wt Last Vital Signs Temp 98.1 F 04/28/22 11:27 Pulse 64 04/28/22 11:27 Resp 17 04/28/22 11:27 BP 147/72 04/28/22 11:27 Pulse Ox 98 04/28/22 11:27 O2 Del Method 04/28/22 11:27 O2 Flow Rate 2 04/26/22 22:23 04/27/22 04/28/22 04/28/22 22:59 06:59 14:59 Intake Total 480 / 1660 240 / 1900 360 / 360 Output Total 200 / 200 525 / 725 Balance 280 / 1460 -285 / 1175 360 / 360 Physical Exam Narrative: Patient was laying supine No active wheezing or crackles He appears euvolemic Currently on room air No active panic attack No active chest pain or shortness of breath Doing well on room air Awake and alert Nonfocal neuro exam Data : 04/27/22 05:20 04/27/22 05:20 A&P Assessment and plan (1) PSA elevation: Status: Acute (2) Orthostatic dizziness: Status: Acute (3) AAA (abdominal aortic aneurysm): Status: Acute (4) Hypertensive emergency: Status: Acute (5) Falls: Status: Acute (6) Nausea and vomiting: Status: Acute (7) Late latent syphilis: Status: Acute Plan Patient is awaiting placement We will not be able to do AAA repair during this hospitalization Dr. Gee will electively schedule AAA repair Hypertension: I will add chlorthalidone to labetalol DVT prophylaxis can resume He does not need to be n.p.o. anymore For his anxiety added Xanax 0.5 mg 3 times daily as needed For orthostatic hypotension I have discontinued his tamsulosin No signs of nausea, vomiting, no abdominal pain Abnormal PSA level, information from head of pancreas Sister updated Attestations Medical Necessity Statement*: Awaiting placement Time Spent in Patient Care: 30 Coding Level of Care Code Acute [facility] for [facility] Fwd Diagnoses PSA elevation R97.20 Orthostatic dizziness R42 AAA (abdominal aortic aneurysm) I71.4 Hypertensive emergency I16.1 Falls W19.XXXA Nausea and vomiting R11.2 Late latent syphilis A52.8
[2022-04-28] MEDS: chlorthalidone 25 mg Tablet 12.5 MG PO (13:21)
[2022-04-28 17:29] LABS: Glucose Point of Care 133 mg/dL (70-110)
[2022-04-28] MEDS: atorvastatin 40 mg Tablet PO (20:53)
[2022-04-28] MEDS: nicotine 14 mg Patch 1 PATCH TRANSDERMA (22:32)
[2022-04-29] VITALS (11 sets, daily range): BP systolic 116–175; BP diastolic 70–84; PULSE 57–80; RESP 17–18; TEMP 36.4–36.7; O2SAT 92–97
[2022-04-29 06:54] LABS: Glucose Point of Care 97 mg/dL (70-110)
[2022-04-29] MEDS: gabapentin 300 mg Capsule PO ×2 (07:56→15:30)
[2022-04-29] MEDS: labetalol 200 mg Tablet 100 MG PO ×2 (07:56→20:11)
[2022-04-29] MEDS: clopidogrel 75 mg Tablet PO (07:57)
[2022-04-29] MEDS: sertraline 50 mg Tablet PO (07:58)
[2022-04-29] MEDS: chlorthalidone 25 mg Tablet 12.5 MG PO (07:58)
[2022-04-29] MEDS: aspirin 81 mg EC Tablet PO (07:58)
[2022-04-29] MEDS: cefUROXime 250 mg Tablet 500 MG PO ×2 (07:58→18:03)
[2022-04-29] MEDS: nicotine 14 mg Patch 1 PATCH TRANSDERMA (07:59)
[2022-04-29] MEDS: enoxaparin 40 mg/0.4 mL Syringe SUBCUT (07:59)
--- NOTE | 2022-04-29 08:41 | PC.SOCIAL ---
IMM Updated Updated pt on IMM. No questions voiced. Provided pt a copy. Initialed, dated, & timed copy in chart.
--- NOTE | 2022-04-29 10:37 | PC.NURSE ---
At 0900 Dr. Toscano at bedside, BO to change dose of Labetalol dose to 300mg BID. notified Pharmacy
[2022-04-29] MEDS: ALPRAZolam 0.5 mg Tablet PO ×2 (10:41→20:12)
--- NOTE | 2022-04-29 11:54 | P.PN_ITS ---
Subjective Subjective: Patient is awaiting placement No overnight events Hypertensive Increase labetalol 300 mg twice daily along chlorthalidone Added lisinopril low-dose Vitals/I&O/Wt Last Vital Signs Temp 97.8 F 04/29/22 07:58 Pulse 61 04/29/22 08:00 Resp 17 04/29/22 08:00 BP 175/78 04/29/22 07:58 Pulse Ox 92 04/29/22 08:00 O2 Del Method 04/29/22 08:00 O2 Flow Rate 2 04/26/22 22:23 04/28/22 04/29/22 04/29/22 22:59 06:59 14:59 Intake Total 360 / 840 Output Total 500 / 1025 250 / 1275 Balance -140 / -185 -250 / -435 Physical Exam Narrative: Patient awake and alert On room air Laying supine Patient is endorsing feeling better Awake and alert S1, S2 Abdomen distended Nonfocal neuro exam Data : 04/27/22 05:20 04/27/22 05:20 Micro: Microbiology 04/24/22 05:18 Blood Culture - Final Blood NO GROWTH AFTER 5 DAYS 04/24/22 05:18 Blood Culture - Final Blood NO GROWTH AFTER 5 DAYS A&P Assessment and plan (1) Late latent syphilis: Status: Acute (2) PSA elevation: Status: Acute (3) Orthostatic dizziness: Status: Acute (4) AAA (abdominal aortic aneurysm): Status: Acute (5) Hypertensive emergency: Status: Acute (6) Falls: Status: Acute Plan Awaiting placement Added lisinopril low-dose along chlorthalidone increase the dose of labetalol Target blood pressure should be below 140 at least heart rate below 80 because of his AAA 5.2 cm Outpatient elective AAA repair Awaiting placement DNR/DNI On DVT prophylaxis Continue aspirin Plavix because of his recent RCA stent Attestations Medical Necessity Statement*: Awaiting placement Time Spent in Patient Care: 20 Coding Level of Care Code Acute [employer] for [employer] Fwd Diagnoses Late latent syphilis A52.8 PSA elevation R97.20 Orthostatic dizziness R42 AAA (abdominal aortic aneurysm) I71.4 Hypertensive emergency I16.1 Falls W19.XXXA
[2022-04-29 12:04] LABS: Glucose Point of Care 126 mg/dL (70-110)
[2022-04-29] MEDS: lisinopril 5 mg Tablet PO (12:32)
[2022-04-29] MEDS: TRAMadol 50 mg Tablet PO ×2 (15:30→23:56)
[2022-04-29 17:39] LABS: Glucose Point of Care 151 mg/dL (70-110)
[2022-04-29] MEDS: insulin lispro 100 unit/1 mL SUBCUT (18:04)
--- NOTE | 2022-04-29 18:09 | PC.NURSE ---
pt with c/o diarrhea x4 times since noon today, notified pt requesting medication, Dr. Toscano would like a C-dif sample, also gave VRBO to change labetalol to 100mg PO 2100 and labetalol 300mg PO AM. Will notify Pharmacy.
--- NOTE | 2022-04-29 19:12 | PC.NURSE ---
i reported low temp 97.5 to nurse
[2022-04-29] MEDS: atorvastatin 40 mg Tablet PO (20:12)
[2022-04-29 20:16] LABS: Glucose Point of Care 111 mg/dL (70-110)
[2022-04-29] MEDS: CLONazepam 0.5 mg Tablet 0.25 MG PO (22:19)
[2022-04-30] VITALS (12 sets, daily range): BP systolic 95–138; BP diastolic 69–86; PULSE 60–69; RESP 15–19; TEMP 36.4–36.6; O2SAT 93–96
[2022-04-30] MEDS: fluticasone nasal spray 16gm Btl 1 SPRAY NASAL (05:57)
[2022-04-30] MEDS: ALPRAZolam 0.5 mg Tablet PO ×2 (05:58→19:29)
[2022-04-30 06:23] LABS: Glucose Point of Care 129 mg/dL (70-110)
[2022-04-30] MEDS: nicotine 14 mg Patch 1 PATCH TRANSDERMA (08:31)
[2022-04-30] MEDS: gabapentin 300 mg Capsule PO ×3 (08:32→19:30)
[2022-04-30] MEDS: aspirin 81 mg EC Tablet PO (08:32)
[2022-04-30] MEDS: lisinopril 5 mg Tablet PO (08:32)
[2022-04-30] MEDS: clopidogrel 75 mg Tablet PO (08:32)
[2022-04-30] MEDS: sertraline 50 mg Tablet PO (08:32)
[2022-04-30] MEDS: enoxaparin 40 mg/0.4 mL Syringe SUBCUT (08:32)
[2022-04-30] MEDS: cefUROXime 250 mg Tablet 500 MG PO ×2 (08:34→17:27)
[2022-04-30] MEDS: TRAMadol 50 mg Tablet PO (08:41)
[2022-04-30] MEDS: chlorthalidone 25 mg Tablet PO (08:43)
[2022-04-30] MEDS: labetalol 200 mg Tablet 300 MG PO (08:43)
[2022-04-30 11:47] LABS: Glucose Point of Care 131 mg/dL (70-110)
--- NOTE | 2022-04-30 11:47 | P.PN_ITS ---
Subjective Subjective: This morning patient is asking his anxiolytics to be titrated up along opioids, I will add oxycodone At Seroquel at nighttime he is already on anxiolytics and reluctant to increase the dose for now Blood pressure has stayed stable on her current regimen Awaiting placement He does get left arm pain which is recurrent for him in my opinion this is cervical radiculopathy for which I have added gabapentin Vitals/I&O/Wt Last Vital Signs Temp 98 F 04/30/22 08:00 Pulse 63 04/30/22 08:00 Resp 16 04/30/22 07:19 BP 133/77 04/30/22 08:00 Pulse Ox 93 04/30/22 08:00 O2 Del Method 04/30/22 07:19 O2 Flow Rate 2 04/26/22 22:23 04/29/22 04/30/22 04/30/22 22:59 06:59 14:59 Intake Total 360 / 360 Output Total 480 / 480 860 / 1340 Balance -480 / -480 -860 / -1340 360 / 360 Physical Exam Narrative: He was not anxious at the time of my evaluation On room air No active chest pain No signs of stroke Awake and alert Abdomen soft Pleasant cooperative Blood pressure stable No audible stridor or wheezing Data : 04/27/22 05:20 04/27/22 05:20 A&P Assessment and plan (1) Late latent syphilis: Status: Acute (2) PSA elevation: Status: Acute (3) Orthostatic dizziness: Status: Acute (4) AAA (abdominal aortic aneurysm): Status: Acute (5) Hypertensive emergency: Status: Acute (6) Chest pain: Status: Acute (7) Falls: Status: Acute (8) Nausea and vomiting: Status: Acute (9) Diabetes: Status: Acute (10) Tobacco abuse: Status: Acute (11) HTN (hypertension): Status: Acute Plan Blood pressure stable on labetalol 200 in the morning and 100 at nighttime with lisinopril and chlorthalidone AAA elective repair outpatient by Dr. Gee Anxiety, added Seroquel for nighttime he is already on anxiolytics, I would not increase the dose for now Left arm cervical radiculopathy added gabapentin DNR/DNI Elevated PSA No abdominal pain, information at pancreatic head Awaiting placement to a residential Dizziness has improved Late secondary syphilis Attestations Medical Necessity Statement*: Awaiting placement Time Spent in Patient Care: 30 Coding Level of Care Code Acute [employer] for Chg Fwd Diagnoses Late latent syphilis A52.8 PSA elevation R97.20 Orthostatic dizziness R42 AAA (abdominal aortic aneurysm) I71.4 Hypertensive emergency I16.1 Chest pain R07.9 Falls W19.XXXA Nausea and vomiting R11.2 Diabetes E11.9 Tobacco abuse Z72.0 HTN (hypertension) I10
[2022-04-30] MEDS: oxyCODONE 5 mg IR Tab/Cap PO ×2 (11:55→19:28)
[2022-04-30 12:31] LABS: Glucose Point of Care 128 mg/dL (70-110)
[2022-04-30 17:21] LABS: Glucose Point of Care 144 mg/dL (70-110)
[2022-04-30] MEDS: atorvastatin 40 mg Tablet PO (19:28)
[2022-04-30] MEDS: labetalol 200 mg Tablet 100 MG PO (19:28)
[2022-04-30] MEDS: quetiapine 25 mg Tablet 50 MG PO (19:29)
[2022-04-30 20:34] LABS: Glucose Point of Care 152 mg/dL (70-110)
[2022-05-01 04:00] VITALS: BP 105/66; PULSE 57; RESP 18; TEMP 36.1; O2SAT 91
[2022-05-01 06:25] LABS: Glucose Point of Care 107 mg/dL (70-110)
[2022-05-01 07:55] VITALS: BP 144/77; PULSE 61; RESP 17; TEMP 36.4; O2SAT 91
[2022-05-01 08:00] VITALS: PULSE 67; RESP 16; O2SAT 97
[2022-05-01] MEDS: chlorthalidone 25 mg Tablet PO (08:28)
[2022-05-01] MEDS: sertraline 50 mg Tablet PO (08:29)
[2022-05-01] MEDS: cefUROXime 250 mg Tablet 500 MG PO (08:29)
[2022-05-01] MEDS: gabapentin 300 mg Capsule PO (08:29)
[2022-05-01] MEDS: nicotine 14 mg Patch 1 PATCH TRANSDERMA (08:29)
[2022-05-01] MEDS: enoxaparin 40 mg/0.4 mL Syringe SUBCUT (08:29)
[2022-05-01] MEDS: clopidogrel 75 mg Tablet PO (08:29)
[2022-05-01] MEDS: lisinopril 5 mg Tablet PO (08:29)
[2022-05-01] MEDS: aspirin 81 mg EC Tablet PO (08:29)
[2022-05-01] MEDS: labetalol 200 mg Tablet 300 MG PO (08:30)
--- NOTE | 2022-05-01 09:18 | PC.SOCIAL ---
IMM update Copy of page 2 provided to patient at bedside. Patient verbalized understanding. Initialed, dated and timed copy in chart.
[2022-05-01 10:58] VITALS: BP 102/70; PULSE 70; RESP 16; TEMP 36.4; O2SAT 94
--- NOTE | 2022-05-01 11:07 | PM.DCS ---
Discharge Providers Date of Admission: 04/24/22 05:57 Date of Discharge: May 01, 2022 Attending Provider at Admission: Johnson Mosher MD Attending Provider at Discharge: Love Toscano MD Primary Care Provider: Bishop Hall MD Diagnoses at Discharge Discharge Diagnosis (1) Late latent syphilis: Status: Acute (2) PSA elevation: Status: Acute (3) Orthostatic dizziness: Status: Acute (4) AAA (abdominal aortic aneurysm): Status: Acute (5) Hypertensive emergency: Status: Acute (6) Chest pain: Status: Acute (7) Falls: Status: Acute (8) Nausea and vomiting: Status: Acute (9) Diabetes: Status: Acute (10) Tobacco abuse: Status: Acute (11) HTN (hypertension): Status: Acute Reason for Visit Reason for Visit: CHEST PAIN Hospital Course Hospital Course 76-year-old male who was admitted for management evaluation of dizziness, hypertensive emergency required Cardene drip, it was very difficult to control his blood pressure the caveat was with aggressive antihypertensive p.o. regimen his blood pressure was dropping down to upper 80s, every attempt to cut back on his antihypertensive regimen because of rebound hypertension systolic blood pressure in 150s to 170s millimeters mercury. However we were able to successfully titrate his antihypertensive regimen and following regimen really helped to keep his pressure below 140 with heart rate below 80. Labetalol 300 mg in the morning, 100 mg at nighttime along chlorthalidone and low-dose lisinopril. Have discontinued his Imdur. Patient on get hydralazine because of AAA 5.[address] Gee evaluated him and plan for AAA repair on Sunday 04/29 however this was postponed because of staffing issue, Dr. Gee recommended outpatient elective AAA repair. Because of his dizziness seen was made to send him to prison. He has been accepted at [facility]. Target blood pressure ideally should be below 130 mmHg heart rate below 80 bpm Needs to follow-up with Dr. Gee as soon as possible He does complain of left arm pain which I think is cervical radiculopathy which improved with gabapentin. For his anxiety he received his Xanax, Klonopin and Seroquel. Physical Exam Narrative: He was not anxious at the time of my evaluation On room air No active chest pain No signs of stroke Awake and alert Abdomen soft Pleasant cooperative Blood pressure stable No audible stridor or wheezing Discharge Data Studies Completed and Pending Completed Studies During Hospitalization Category Date Time Status CT head wo con* [id number] Stat Cat Scan 04/24/22 03:22 Completed CTA abdomen pelvis [CT angio abdomen pelvis [id number]] Stat Cat Scan 04/25/22 12:[address] abdomen pelvis [CT angio chest w abd pel w Cat Scan 04/24/22 01:43 Completed con] Stat XR chest 1V portable [id number] Routine Exams 04/26/22 09:20 Completed XR chest 1V portable [id number] Urgent Exams 04/23/22 23:44 Completed CV. echo wo/w contrast [id number] Routine Ultrasound 04/24/22 06:32 Completed Pending at discharge Category Date Time Status SARS Covid-2 Antigen Routine Lab 05/01/22 10:32 Uncollected Radiology Impressions Chest/Abdomen/Pelvis CT 04/24/22 01:43 IMPRESSION: 1. Stable severe calcified coronary artery disease. 2. No pulmonary embolus or aortic dissection. 3. Stable mild mediastinal adenopathy which is probably reactive. IMPRESSION: 1. 5.2 cm abdominal aortic aneurysm without rupture. 2. Enlarged 5.8 cm prostate greater than or equal to 5.0 cm; correlation with PSA levels is recommended. COMMENTS: Consistent with the [employer]'s Incidental Findings Committee white paper (J Am Lisa Radiol 2018): Any incidental renal lesion less than 1 cm or classified as too small to characterize, or any incidental cystic renal lesion characterized as simple-appearing, is likely benign. No follow-up imaging is recommended for these lesions per consensus recommendations based on imaging criteria. Head CT 04/24/22 03:22 IMPRESSION: No acute intracranial findings. Abdomen/Pelvis CTA 04/25/22 12:48 IMPRESSION: 1. Large abdominal aortic aneurysm without rupture. Maximum diameter of the aneurysm is 5.3 cm. 2. Mild stenosis distal abdominal aorta. 3. Multilevel areas of stenosis involving the common, internal and external iliac artery and the proximal LEFT SFA. Most significant stenosis near 70% involving the LEFT internal iliac artery and the proximal LEFT SFA. 4. New inflammatory process centered at the duodenal C-loop and the lateral pancreatic head. There is wall thickening and new inflammatory fat stranding and a small amount of fluid. Loss of the normal fat plane between the pancreatic head and duodenum. Increased soft tissue thickening and enhancement along the medial duodenal head near the ampulla of Vater. There is no duct dilatation. This may be inflammatory but early neoplasm needs to be considered at the ampulla of Vater. Consider endoscopic evaluation. MRCP may provide additional information considering the distal common bile duct and the duodenal C-loop. Chest X-Ray 04/26/22 09:20 IMPRESSION: Emphysematous change , interstitial prominence, and mild airspace disease. Laboratory Results WBC 12.6 10^3/uL (4.0-10.0) H 04/27/22 05:20 RBC 4.53 10^6/uL (4.1-5.3) 04/27/22 05:20 Hgb 14.9 g/dL (11.7-16.6) 04/27/22 05:20 Hct 44.4 % (42.0-52.0) 04/27/22 05:20 MCV 98.0 fl (80-94) H 04/27/22 05:20 MCH 32.9 pg (28.0-34.0) 04/27/22 05:20 MCHC 33.6 g/dL (30.0-36.0) 04/27/22 05:20 RDW 13.2 % (12.1-15.1) 04/27/22 05:20 Plt Count 196 10^3/cmm (130-400) 04/27/22 05:20 MPV 10.4 fL (7.4-10.4) 04/27/22 05:20 Neut % (Auto) 57.0 % 04/27/22 05:20 Lymph % (Auto) 30.7 % 04/27/22 05:20 [place] % (Auto) 7.6 % 04/27/22 05:20 Eos % (Auto) 4.0 % 04/27/22 05:20 Baso % (Auto) 0.5 % 04/27/22 05:20 Neut # (Auto) 7.17 10^3/uL (1.8-7.7) 04/27/22 05:20 Lymph # (Auto) 3.9 10^3/uL (0.8-4.8) 04/27/22 05:20 [place] # (Auto) 1.0 10^3/uL (0.2-0.9) H 04/27/22 05:20 Eos # (Auto) 0.5 10^3/uL (0.0-0.8) 04/27/22 05:20 Baso # (Auto) 0.1 10^3/uL (0.0-0.1) 04/27/22 05:20 Nucleated RBC % (auto) 0 % 04/27/22 05:20 Nucleated RBCs # 0.0 /100WBC 04/27/22 05:20 ESR 18 mm/hr (0-10) H 04/24/22 05:20 Sodium 140 mmol/L (136-145) 04/27/22 05:20 Potassium 4.0 mmol/L (3.5-5.1) 04/27/22 05:20 Chloride 102 mmol/L (98-107) 04/27/22 05:20 Carbon Dioxide 28 mmol/L (22-29) 04/27/22 05:20 Anion Gap 14.0 (5-19) 04/27/22 05:20 BUN 14 mg/dL (8-23) 04/27/22 05:20 Creatinine 0.7 mg/dL (0.7-1.2) 04/27/22 05:20 GFR Calculation Not Reportable 04/27/22 05:20 Glucose 93 mg/dL (65-115) 04/27/22 05:20 POC Glucose 107 mg/dL (70-110) 05/01/22 06:01 Calculated Osmolality 290 mOsm/kg (285-295) 04/27/22 05:20 Lactic Acid 1.3 mmol/L (0.5-2.2) 04/24/22 05:18 Calcium 9.2 mg/dL (8.5-10.5) 04/27/22 05:20 Phosphorus 3.0 mg/dL (2.5-4.5) 04/27/22 05:20 Magnesium 3.3 mg/dL (1.7-2.3) H 04/27/22 05:20 Total Bilirubin 0.7 mg/dL (0.15-1.2) 04/27/22 05:20 AST 27 U/L (0-40) 04/27/22 05:20 ALT 27 U/L (0-41) 04/27/22 05:20 Alkaline Phosphatase 71 IU/L (40-130) 04/27/22 05:20 Troponin T Gen 5 ng/L 20 ng/L (0-15) H 04/26/22 07:13 Troponin T Baseline 17 ng/L (0-15) H 04/26/22 23:00 Troponin T 120 Minute 18.79 ng/L (0-15) H 04/27/22 01:30 Delta Troponin T 1.79 ABS# (0-10) 04/27/22 01:30 Troponin T Hi Sens 6Hr 18.58 ng/L (0-15) H 04/27/22 05:20 Troponin T Hi Sens 6Hr Delta 1.58 ng/L (0-12) 04/27/22 05:20 C-Reactive Protein 12.9 mg/L (0.0-4.9) H 04/24/22 05:20 NT-Pro-B Natriuret Pep 309 pg/mL (0-450) 04/23/22 22:25 Total Protein 6.4 g/dL (6.6-8.7) L 04/27/22 05:20 Albumin 3.3 g/dL (3.5-5.2) L 04/27/22 05:20 Globulin 3.1 g/dL (1.3-4.6) 04/27/22 05:20 Lipase 151 U/L (13-60) H 04/26/22 04:05 Prostate Specific Ag 6.340 ng/mL (0-4) H 04/24/22 05:20 Vitamin B12 663 pg/mL (232-1245) 04/24/22 05:20 Procalcitonin 0.17 ng/mL (0-0.5) 04/24/22 05:18 TSH 0.70 uIU/mL (0.27-4.20) 04/24/22 05:20 Urine Color Straw (Yellow) 04/27/22 16:32 Urine Appearance Clear (CLEAR) 04/27/22 16:32 Urine pH 6 (5-7) 04/27/22 16:32 Ur Specific [place] 1.015 (1.005-1.030) 04/27/22 16:32 Urine Protein Neg (Negative) 04/27/22 16:32 Urine Glucose (UA) Norm (Normal) 04/27/22 16:32 Urine Ketones Negative (Negative) 04/27/22 16:32 Urine Blood Neg (Negative) 04/27/22 16:32 Urine Nitrate Negative (Negative) 04/27/22 16:32 Urine Bilirubin Neg (Negative) 04/27/22 16:32 Urine Urobilinogen Norm mg/dL (Negative) 04/27/22 16:32 Ur Leukocyte Esterase Negative (Negative) 04/27/22 16:32 Ethyl Alcohol < 10 mg/dL (0-10) 04/26/22 07:13 RPR Titer/FTA 1:1 H 04/24/22 05:20 RPR w/Rflx to Titer Reactive (NON-REACTIVE) A 04/24/22 05:20 T.pallidum Ab (FTA-ABS) Reactive (NON-REACTIVE) A 04/24/22 05:18 SARS-CoV-2 Ag (Rapid) Negative (Negative) 04/24/22 00:40 Blood Type A Positive 04/27/22 08:30 Rho(D) Type Positive 04/27/22 08:30 Antibody Screen Negative 04/27/22 08:30 Crossmatch See Detail 04/27/22 08:30 Vitals Last Vital Signs Temp 97.6 F 05/01/22 10:58 Pulse 70 05/01/22 10:58 Resp 16 05/01/22 10:58 BP 102/70 05/01/22 10:58 Pulse Ox 94 05/01/22 10:58 O2 Del Method 05/01/22 10:58 O2 Flow Rate 2 04/26/22 22:23 Discharge Plan Discharge Patient Disposition: Xfer SNF Condition: Stable Prescriptions: New labetalol 200 mg Tablet 100 mg PO BEDTIME Qty: 30 0RF labetalol 200 mg Tablet 300 mg PO 0900 Qty: 30 0RF chlorthalidone 25 mg Tablet 25 mg PO DAILY Qty: 30 0RF lisinopril 5 mg Tablet 5 mg PO DAILY Qty: 30 0RF meclizine 25 mg tablet 25 mg PO BID PRN (Reason: dizziness) Qty: 30 0RF gabapentin 300 mg capsule 300 mg PO BID Qty: 60 0RF Continued clopidogrel 75 mg tablet 75 mg PO DAILY albuterol sulfate [ProAir HFA] 90 mcg/actuation HFA aerosol inhaler 2 puff INHALATION Q6H PRN (Reason: Bronchodilation) nitroglycerin [Nitrostat] 0.4 mg tablet, sublingual 0.4 mg SUBLINGUAL Q5M PRN (Reason: Chest Pain) gabapentin 300 mg capsule 300 mg PO TID cholecalciferol (vitamin D3) 125 mcg (5,000 unit) capsule 125 mcg PO DAILY tramadol 50 mg Tablet 50 mg PO Q8H PRN (Reason: Pain) budesonide-formoterol [Symbicort] 160-4.5 mcg/actuation HFA aerosol inhaler 2 puff INHALATION BID zinc 50 mg Tablet 50 mg PO DAILY aspirin 81 mg Tablet,Delayed Release (Dr/Ec) 81 mg PO DAILY Qty: 90 0RF sertraline 50 mg tablet 50 mg PO BEDTIME Discontinued potassium chloride 10 mEq tablet extended release 10 meq PO DAILY Qty: 90 0RF ciprofloxacin HCl 500 mg tablet 500 mg PO BID Qty: 14 0RF Rx Instructions: rx filled 04/21/22 7d/s tamsulosin [Flomax] 0.4 mg Capsule 0.4 mg PO DAILY mirtazapine 7.5 mg Tablet 7.5 mg PO BEDTIME isosorbide mononitrate 60 mg tablet extended release 24 hr 30 mg PO DAILY lisinopril 20 mg tablet 10 mg PO DAILY lorazepam 1 mg tablet 1 mg PO DAILY PRN (Reason: Anxiety) Discharge Orders: Discharge Order (Routine); Ordered 05/01/22 Ordered By: Love Toscano Referrals: Bishop Hall MD [Primary Care Provider] - 05/02/22 10:00 am (appt is with sebas delcid ) Jacinto Gee MD [Physician] - 4-7 days (AAA 5 cm) Discharge Diet: Cardiac Discharge Activity: As per PT/OT instructions Patient Instructions: Nonruptured Abdominal Aortic Aneurysm (DC) Discharge Attestations Time Spent in Discharge Care*: less than 30 min Quality Metrics Clinical Quality Measures [ No reported AMI, CVA or VTE this stay] Coding Level of Care Code Acute Chg FW DC note Diagnoses Late latent syphilis A52.8 PSA elevation R97.20 Orthostatic dizziness R42 AAA (abdominal aortic aneurysm) I71.4 Hypertensive emergency I16.1 Chest pain R07.9 Falls W19.XXXA Nausea and vomiting R11.2 Diabetes E11.9 Tobacco abuse Z72.0 HTN (hypertension) I10
[2022-05-01 12:18] LABS: SARS Covid-2 Antigen Negative (Negative)
[2022-05-01 13:07] LABS: Glucose Point of Care 188 mg/dL (70-110)
[2022-05-01 15:44] VITALS: BP 118/77; PULSE 63; RESP 16; TEMP 36.4; O2SAT 95
[2022-05-01 17:23] VITALS: BP 118/77; PULSE 63; RESP 16; TEMP 36.4; O2SAT 95
== END 2022-05-01 17:24 | disposition skilled nursing facility (03) | DRG 305 ==
LOC: ER 04-24 04:02 → ICU 04-24 04:30 → MEDSURG 04-24 18:06
PROVIDERS: Physician Assistant; Thoracic Surgery (Cardiothoracic Vascular Surgery); Admitting Provider Family Medicine; Emergency Provider Emergency Medicine; PCP Family Medicine; Visit Provider Internal Medicine
DX: I16.1 Hypertensive emergency (principal); I10 Essential (primary) hypertension; I25.10 Atherosclerotic heart disease of native coronary artery without angina pectoris; Z95.5 Presence of coronary angioplasty implant and graft; F17.210 Nicotine dependence, cigarettes, uncomplicated; E11.42 Type 2 diabetes mellitus with diabetic polyneuropathy; E11.51 Type 2 diabetes mellitus with diabetic peripheral angiopathy without gangrene; Z86.73 Personal history of transient ischemic attack (TIA), and cerebral infarction without residual deficits; J43.9 Emphysema, unspecified; N40.1 Benign prostatic hyperplasia with lower urinary tract symptoms; F32.A Depression, unspecified; K21.9 Gastro-esophageal reflux disease without esophagitis; E78.5 Hyperlipidemia, unspecified; A52.8 Late syphilis, latent; Z66 Do not resuscitate; H90.5 Unspecified sensorineural hearing loss; I71.4 Abdominal aortic aneurysm, without rupture; Z79.82 Long term (current) use of aspirin; Z79.891 Long term (current) use of opiate analgesic; Z79.51 Long term (current) use of inhaled steroids; Z79.02 Long term (current) use of antithrombotics/antiplatelets; M54.12 Radiculopathy, cervical region; F41.9 Anxiety disorder, unspecified; R97.20 Elevated prostate specific antigen [PSA]; K86.9 Disease of pancreas, unspecified; Z88.0 Allergy status to penicillin; I95.9 Hypotension, unspecified; R29.6 Repeated falls; R91.1 Solitary pulmonary nodule; R59.0 Localized enlarged lymph nodes
CPT/HCPCS: 36415; 36416; 70450; 71045; 71275; 74174; 74177; 80053; 80307; 81003; 82607; 82962; 83605; 83690; 83735; 83880; 84100; 84145; 84153; 84443; 84484; 85025; 85651; 86140; 86592; 86780; 86850; 86900; 86920; 87040; 87086; 87426; 87493; 93005; 93306; 94640; 94760; 96365; 96366; 96372; 96375; 97116; 97161; 97530; 99291; 99292; C8929; C9113; J0360; J1650; J1815; J1940; J2270; J2405; J3370; J3475; J3480; J7030; Q9956; Q9967

== ENCOUNTER → 2022-05-08 08:57 | Outpatient (BNVA) | payer MEDICARE, MEDICAID, SELFPAY | PROVIDERS: PCP Family Medicine; Visit Provider Thoracic Surgery (Cardiothoracic Vascular Surgery) | DX: I71.4 Abdominal aortic aneurysm, without rupture (principal) | CPT/HCPCS: 99213 ==

== ENCOUNTER 2022-05-20 13:06 | Observation (INO) | payer MEDICARE, MEDICAID, SELFPAY ==
[2022-05-20 13:10] VITALS: BP 141/76; PULSE 68; RESP 14; O2SAT 98
--- NOTE | 2022-05-20 13:17 | XRR_ITS ---
PROCEDURE INFORMATION: Exam: XR Chest Exam date and time: 05/20/2022 1:22 PM Age: 77 years old Clinical indication: Pain; Angina pectoris; Additional info: Chest pain TECHNIQUE: Imaging protocol: Radiologic exam of the chest. Views: 1 view. COMPARISON: CR XR chest 1V portable [id number] 04/26/2022 11:57 AM FINDINGS: Lungs: Unremarkable. No consolidation. Pleural spaces: Unremarkable. No pleural effusion. No pneumothorax. Heart/Mediastinum: Unremarkable. No cardiomegaly. Bones/joints: Prominent chronic degenerative changes are present in the shoulders.. XR/XR chest 1V portable [id number] IMPRESSION: No acute findings.
--- NOTE | 2022-05-20 13:27 | ECG_ITS ---
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 Measurements Intervals Sigel Rate: 67 P: 88 CA: 186 QRS: 47 QRSD: 118 T: 53 QT: 437 QTc: 464 Interpretive Statements SINUS RHYTHM Compared to ECG 04/27/2022 04:16:24 Intraventricular conduction delay no longer present Electronically Signed On 05-20-2022 16:32:56 CDT by Bria Figueroa M.D. [email or web address]
[2022-05-20] MEDS: acetaminophen 500 mg Tablet 1000 MG PO (14:00)
[2022-05-20] MEDS: lidocaine 2% viscous 15 ML, aluminum-mag hydrox-simethicon 30 ML, sucralfate oral liq 1 GM PO (14:00)
[2022-05-20] MEDS: sodium chloride 0.9% 1,000 ML 999 ML IV (14:02)
[2022-05-20 14:06] LABS: Basophils % 0.3 %; Eosinophils # 0.3 10^3/uL (0.0-0.8); Eosinophils % 2.4 %; Hematocrit 46.3 % (42.0-52.0); Hemoglobin 16.2 g/dL (11.7-16.6); Lymphocytes # 2.3 10^3/uL (0.8-4.8); Lymphocytes % 18.6 %; Mean Corpuscular Hemoglobin 32.7 pg (28.0-34.0); Mean Corpuscular Volume 93.3 fl (80-94); Mean Platelet Volume 10.2 fL (7.4-10.4); Monocytes # 0.7 10^3/uL (0.2-0.9); Monocytes % 5.6 %; Neutrophils # 9.04 10^3/uL (1.8-7.7); Neutrophils % 72.7 %; Nucleated Red Blood Cells % 0 %; Platelet Count 169 10^3/cmm (130-400); Red Blood Count 4.96 10^6/uL (4.1-5.3); White Blood Count 12.4 10^3/uL (4.0-10.0)
[2022-05-20 14:30] LABS: Troponin(5th) Baseline 32 ng/L (0-15)
--- NOTE | 2022-05-20 14:30 | PC.PHAR ---
PT STS HIS SISTER IGNACIA HELPS HIM WITH HIS MEDICATIONS- IGNACIA WAS ABLE TO VERIFY PT MEDICATIONS AND ALLERGIES OVER THE PHONE
[2022-05-20 14:33] LABS: Anion Gap 14.8 (5-19); Blood Urea Nitrogen 28 mg/dL (8-23); Calcium 8.9 mg/dL (8.5-10.5); Carbon Dioxide 27 mmol/L (22-29); Chloride 102 mmol/L (98-107); Glucose 159 mg/dL (65-115); Osmolality Calculated 301 mOsm/kg (285-295); Sodium 141 mmol/L (136-145)
[2022-05-20 14:37] LABS: Potassium 2.8 mmol/L (3.5-5.1)
[2022-05-20 14:45] VITALS: BP 148/70; PULSE 78; RESP 14; TEMP 36.9; O2SAT 97
--- NOTE | 2022-05-20 15:01 | W.ED.GENADLT ---
HPI - General Adult General: Chief complaint: Nausea/Vomiting/Diarrhea Stated complaint: N/V/ COVID +/ CHEST PAIN Time Seen by Provider: 05/20/22 13:13 History of Present Illness: Patient is a 77-year-old male with history of CVA, diabetes, hypertension, hyperlipidemia who presents the emergency room for evaluation of cough, body aches, generalized weakness and positive COVID test. Patient tells me he has been feeling well today. Has been COVID tested positive. Patient reports no sick contact at home. Patient reports loose stool and mild decreased p.o. intake. Denies any melena hematochezia or complaints. He has no complaints of chest pain or shortness of breath. Onset:earlier today Duration:ongoing Location:home Severity:moderate Associated symptoms: Reports malaise and nausea; Deny chest pain, dyspnea, rash, palpitations or vomiting Review of Systems Const: Reports: chills, body aches, malaise, night sweats and other (+generalized weakness); Denies: fever(s) Eyes: Denies: change in vision ENMT: Denies: mouth pain Card: Denies: chest pain or palpitations Resp: Reports: non-productive cough; Denies: dyspnea GI: Reports: nausea and other (+decreased po intake and loose stool); Denies: abdominal pain, vomiting or diarrhea : Denies: dysuria Musc: Denies: extremity pain Skin/Breast: Denies: rash or new lesions Neuro: Denies: weakness in extremities Psych: Reports: other (Normal mood) Bruno/Lymph: Denies: easy bruising [facility] PFSH: Medical History (Updated 05/22/22 @ 00:02 by ) AAA (abdominal aortic aneurysm) ASHD (arteriosclerotic heart disease) BPH (benign prostatic hyperplasia) COPD (chronic obstructive pulmonary disease) CVA (cerebral vascular accident) Depression Diabetes Falls GERD (gastroesophageal reflux disease) HTN (hypertension) Hyperlipidemia Late latent syphilis Orthostatic dizziness Peripheral neuropathy PSA elevation Tobacco abuse Surgical History History of appendectomy S/P cataract extraction S/P tonsillectomy Family History Father Cancer Mother Diabetes Social History Smoking and tobacco status: current every day smoker cigarettes Packs smoked per day: 0.25 Alcohol intake: former Adopted: No Caregiver/support person: No Lives independently: Yes Household members: none Housing: Apartment Marital status: Current occupational status: disabled Pets and animals: No Current gender identity: Male Physical Exam Const: COMMON NORMALS: alert HENMT: COMMON NORMALS: atraumatic HEAD & SCALP: atraumatic MOUTH: moist mucous membranes not abnormal Eye: COMMON NORMALS: EOMs intact bilaterally and conjunctivae normal CONJUNCTIVA: Yes conjunctivae normal Neck/C-Spine: COMMON NORMALS: full ROM and supple Resp: COMMON NORMALS: normal respiratory effort and clear to auscultation bilaterally AUSCULTATION: clear to auscultation bilaterally Cardio: COMMON NORMALS: regular rate RATE: regular rate GI: COMMON NORMALS: Soft to palpation and non-tender PALPATION: Yes Soft to palpation OTHER: No focal TTP. NO guarding rebound, guarding, rigidity. No CVA tenderness to percussion. Neg Chakraborty/Neg McBurney's point tenderness, no suprabupic tenderness to palpation. Extremity: COMMON NORMALS: full ROM Neuro: SENSORIUM/ORIENTATION: Yes alert MOTOR EXAM: No Abnormal motor strength present and Other motor observations present (no focal motor deficits) Psych: COMMON NORMALS: speech normal SPEECH: Yes normal speech MOOD & AFFECT: Yes euthymic mood Course Vital Signs: Vital signs: Vital Signs Temperature 98.4 F 05/21/22 17:46 Pulse Rate 67 05/21/22 17:46 Respiratory Rate 16 05/21/22 17:46 Blood Pressure 162/82 05/21/22 17:46 Pulse Oximetry 91 05/21/22 17:46 Oxygen Delivery Me thod 05/21/22 15:45 Oxygen Flow Rate 2 05/20/22 13:10 [facility] - General Adult Medical Decision Making Patient is a 77-year-old male with history of CVA, diabetes, hypertension, hyperlipidemia who presents the emergency room for evaluation of cough, body aches, generalized weakness and positive COVID test. On physical exam, patient satting at 95% on room air. No signs of increased work of breathing. Patient appears to be mildly dry on exam. Patient has white count 12.4. Potassium 2.8. Creatinine of 1.3. Patient received IVF and potassium replacement. Disposition: admission Lab Data : 05/21/22 06:10 05/21/22 06:10 Radiology Impressions Chest X-Ray 05/20/22 13:17 IMPRESSION: No acute findings. Laboratory Results WBC 12.4 10^3/uL (4.0-10.0) H 05/20/22 13:57 RBC 4.96 10^6/uL (4.1-5.3) 05/20/22 13:57 Hgb 16.2 g/dL (11.7-16.6) 05/20/22 13:57 Hct 46.3 % (42.0-52.0) 05/20/22 13:57 MCV 93.3 fl (80-94) 05/20/22 13:57 MCH 32.7 pg (28.0-34.0) 05/20/22 13:57 MCHC 35.0 g/dL (30.0-36.0) 05/20/22 13:57 RDW 13.0 % (12.1-15.1) 05/20/22 13:57 Plt Count 169 10^3/cmm (130-400) 05/20/22 13:57 MPV 10.2 fL (7.4-10.4) 05/20/22 13:57 Neut % (Auto) 72.7 % 05/20/22 13:57 Lymph % (Auto) 18.6 % 05/20/22 13:57 [place] % (Auto) 5.6 % 05/20/22 13:57 Eos % (Auto) 2.4 % 05/20/22 13:57 Baso % (Auto) 0.3 % 05/20/22 13:57 Neut # (Auto) 9.04 10^3/uL (1.8-7.7) H 05/20/22 13:57 Lymph # (Auto) 2.3 10^3/uL (0.8-4.8) 05/20/22 13:57 [place] # (Auto) 0.7 10^3/uL (0.2-0.9) 05/20/22 13:57 Eos # (Auto) 0.3 10^3/uL (0.0-0.8) 05/20/22 13:57 Baso # (Auto) 0.0 10^3/uL (0.0-0.1) 05/20/22 13:57 Nucleated RBC % (auto) 0 % 05/20/22 13:57 Nucleated RBCs # 0.0 /100WBC 05/20/22 13:57 Sodium 141 mmol/L (136-145) 05/20/22 13:57 Potassium 2.8 mmol/L (3.5-5.1) L* 05/20/22 13:57 Chloride 102 mmol/L (98-107) 05/20/22 13:57 Carbon Dioxide 27 mmol/L (22-29) 05/20/22 13:57 Anion Gap 14.8 (5-19) 05/20/22 13:57 BUN 28 mg/dL (8-23) H 05/20/22 13:57 Creatinine 1.3 mg/dL (0.7-1.2) H 05/20/22 13:57 GFR Calculation Not Reportable 05/20/22 13:57 Glucose 159 mg/dL (65-115) H 05/20/22 13:57 Calculated Osmolality 301 mOsm/kg (285-295) H 05/20/22 13:57 Calcium 8.9 mg/dL (8.5-10.5) 05/20/22 13:57 Troponin T Baseline 32 ng/L (0-15) H 05/20/22 13:57 Imaging Data Other Imaging: Radiologist's impression: [address] [address] XRay Report Signed Patient: Jose Perkins Unit #: [id number] : 1945 Age/Sex: 77 / M ADM Date: 05/20/22 Loc: ER Room/Bed: Attending Dr: Ordering Provider/Ordering MD: Yung Romano MD Date of Service: 05/20/22 Procedure(s): XR chest 1V portable [id number] Accession Number(s): [id number] Report Number: [id number] PROCEDURE INFORMATION: Exam: XR Chest Exam date and time: 05/20/2022 1:22 PM Age: 77 years old Clinical indication: Pain; Angina pectoris; Additional info: Chest pain TECHNIQUE: Imaging protocol: Radiologic exam of the chest. Views: 1 view. COMPARISON: CR XR chest 1V portable [id number] 04/26/2022 11:57 AM FINDINGS: Lungs: Unremarkable. No consolidation. Pleural spaces: Unremarkable. No pleural effusion. No pneumothorax. Heart/Mediastinum: Unremarkable. No cardiomegaly. Bones/joints:? Prominent chronic degenerative changes are present in the shoulders.. XR/XR chest 1V portable [id number] IMPRESSION: No acute findings. ? Dictated By: Juanito Du Signed By: Juanito Du Signed Date/Time: 05/20/22 1334 DD/ 1322 Discharge Plan Discharge Patient Disposition: Home Clinical Impression: FLAVIO (acute kidney injury), Hypokalemia, COVID Condition: Stable Discharge Orders: Discharge Order (Routine); Ordered 05/21/22 Ordered By: Vandana Hilliard Discharge Diet: Advance as tolerated Discharge Activity: Increase activity as tolerated Coding Level of Care Code ED Driver'S License Reviewing Officer for Chg Fwd Exam Comprehensive
[2022-05-20] MEDS: potassium chloride ER 20 mEq Tablet PO (15:07)
[2022-05-20] MEDS: potassium chloride ER 20 mEq Tablet 40 MEQ PO (15:07)
--- NOTE | 2022-05-20 15:14 | ECG_ITS ---
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 Measurements Intervals [place] Rate: 63 P: 89 MA: 186 QRS: 45 QRSD: 118 T: 56 QT: 448 QTc: 459 Interpretive Statements SINUS RHYTHM Compared to ECG 05/20/2022 13:27:57 No significant changes Electronically Signed On 05-20-2022 16:39:11 CDT by Bria Figueroa M.D. [email or web address]
[2022-05-20] MEDS: lidocaine 1% 5 ML in potassium chloride premix 100 ML 25 ML IV (16:27)
[2022-05-20 16:32] LABS: Troponin 5 2HR 28.14 ng/L (0-15)
[2022-05-20 16:47] LABS: Troponin 5 2HR Delta -3.86 ABS# (0-10)
[2022-05-20 17:20] VITALS: BP 162/80; PULSE 63; RESP 16; TEMP 36.7; O2SAT 95
--- NOTE | 2022-05-20 17:23 | P.HP_ITS ---
Providers/Chief Complaint Admitting Physician: Sharona Painting MD Primary Care Provider: Joe Bustillos DO Chief Complaint: N/V/ COVID +/ CHEST PAIN History of Present Illness Jose Perkins is a 77 year old male past medical history of hypertension, CAD status post drug-eluting stent to mid RCA, balloon angioplasty of distal RCA, history of tobacco abuse,AAA, type 2 diabetes mellitus, history of CVA, COPD who presents today after testing COVID + and experiencing vomiting, nausea and inability to tolerate po intake. He was noted to be dehydrated, FLAVIO with cr 1.3 and hypokalemic whihc is being repleted. ROS + fever, no dyspnea currently. CXR without pneumonitis . Denies chest pain. Review of Systems General: Reports: 10 or more systems reviewed and unremarkable except in HPI and below Const: Denies: fever(s), chills or body aches Eyes: Denies: change in vision, blurry vision or photophobia ENMT: Reports: hoarseness; Denies: throat pain, enlarged tonsils, odynophagia or nasal congestion Card: Denies: chest pain, palpitations, irregular heart rhythm, edema, swelling of feet/ankles, lightheadedness, pre-syncope, dyspnea on exertion or orthopnea Resp: Denies: dyspnea, productive cough, non-productive cough, wheezing, stridor, pain on inspiration, change in phlegm color, hemoptysis or chest congestion GI: Denies: abdominal pain, nausea, vomiting, hematemesis, coffee ground emesis, dysphagia, heartburn, diarrhea, constipation, GI cramping, change in stool character, hematochezia or melena : Denies: flank pain, dysuria, urinary frequency, urinary urgency, urinary hesitancy or hematuria Musc: Denies: neck pain, back pain, extremity pain, joint swelling, joint warmth or deformity Neuro: Denies: headache(s), numbness in extremities, weakness in extremities, sensory changes, difficulty walking, frequent falls, dizziness, vertigo, behavioral changes, Slurred speech present or seizure-like activity Psych: Denies: anxiety, depression, suicidal ideation or homicidal ideation Endo: Denies: polyuria, polydipsia, tired all the time, cold intolerance or hot flashes Bruno/Lymph: Denies: easy bruising or easy bleeding Medications/Allergies Home Medications Medication Instructions Recorded Confirmed Last Taken Type albuterol sulfate 90 mcg/actuation 2 puff inhalation Q6H PRN 12/02/19 05/20/22 08/14/20 History aerosol inhaler (ProAir HFA) Shortness Of Breath clopidogrel 75 mg tablet 75 mg PO DAILY 12/02/19 05/20/22 05/20/22 History nitroglycerin 0.4 mg sublingual 0.4 mg sublingual Q5M PRN Chest 12/02/19 05/20/22 02/17/22 History tablet (Nitrostat) Pain budesonide-formoterol HFA 160 2 puff inhalation BID 06/12/21 05/20/22 05/20/22 H istory mcg-4.5 mcg/actuation aerosol inhaler (Symbicort) tramadol 50 mg tablet 50 mg PO Q8H PRN Pain 06/12/21 05/20/22 Unknown History zinc 50 mg tablet 50 mg PO DAILY 02/02/22 05/20/22 05/20/22 History aspirin 81 mg tablet,delayed 81 mg PO DAILY #90 tabs 02/05/22 05/20/22 05/20/22 Rx release cholecalciferol (vitamin D3) 125 125 mcg PO DAILY 04/11/22 05/20/22 05/20/22 His tory mcg (5,000 unit) capsule sertraline 50 mg tablet 50 mg PO BEDTIME 04/24/22 05/20/22 05/19/22 History chlorthalidone 25 mg tablet 25 mg PO DAILY #30 tabs 05/01/22 05/20/22 05/20/22 Rx meclizine 25 mg tablet 25 mg PO BID PRN dizziness #30 tabs 05/01/22 05/20/22 Unknown Rx hydrocodone 5 mg-acetaminophen 325 1 tab PO Q4H PRN pain/muscle 05/09/22 05/20/22 Unknown Rx mg tablet tension 2 weeks #30 tabs labetalol 200 mg tablet 200 mg PO 0900 #30 tabs 05/09/22 05/20/22 05/20/22 Rx gabapentin 300 mg capsule 300 mg PO BID #60 caps 05/15/22 05/20/22 05/20/22 Rx lisinopril 5 mg tablet 5 mg PO DAILY PRN Blood Pressure 05/20/22 05/20/22 Unknown History Allergies Allergy/AdvReac Type Severity Reaction Status Date / Time Penicillins Allergy Unknown Unknown Verified 05/20/22 14:25 tirofiban Allergy Unknown Unknown Verified 05/20/22 14:25 [From Aggrastat Concentrate] shellfish derived Allergy ADR-Vomitin Verified 05/20/22 14:25 g lorazepam [From Ativan] AdvReac Severe ADR-Halluci Verified 05/20/22 14:25 nating PFSH Acute PFSH: Medical History ASHD (arteriosclerotic heart disease) BPH (benign prostatic hyperplasia) Chest pain COPD (chronic obstructive pulmonary disease) CVA (cerebral vascular accident) Depression Diabetes Falls GERD (gastroesophageal reflux disease) HTN (hypertension) Hyperlipidemia Late latent syphilis Nausea and vomiting Orthostatic dizziness Peripheral neuropathy PSA elevation Screening for STD (sexually transmitted disease) Syphilis (acquired) Tobacco abuse Surgical History History of appendectomy S/P cataract extraction S/P tonsillectomy Family History Father Cancer Mother Diabetes Social History Smoking and tobacco status: current every day smoker cigarettes Packs smoked per day: 0.25 Alcohol intake: former Adopted: No Caregiver/support person: No Lives independently: Yes Household members: none Housing: Apartment Marital status: Current occupational status: disabled Pets and animals: No Current gender identity: Male Vitals/I&O/Wt Last Vital Signs Temp 98.5 F 05/20/22 14:45 Pulse 78 05/20/22 14:45 Resp 14 05/20/22 14:45 BP 148/70 05/20/22 14:45 Pulse Ox 97 05/20/22 14:45 O2 Del Method 05/20/22 14:45 O2 Flow Rate 2 05/20/22 13:10 Physical Exam Narrative: General: No acute distress, AO x3 HEENT: PERRLA, pupils bilaterally equal and reactive, pallors not present Chest: Normal vesicular breath sounds, no added sounds, equal good air entry bilaterally CVS: S1-S2 regular, no murmurs, no tachycardia, no gallops, no rubs Abdomen: Soft, nontender, no organomegaly, bowel sounds present Neuro: No focal deficits, no facial deformity, AO x3, power 5/5 in all limbs Data : 05/20/22 13:57 05/20/22 13:57 A&P Assessment and plan (1) COVID: Status: Acute (2) FLAVIO (acute kidney injury): Status: Acute (3) Hypokalemia: Status: Acute (4) Dehydration: Status: Acute Plan Admit to observation on med/surg given dehydartion and FLAVIO Started on IVF d5NS with added KCL @ 75 cc/hr check Cr with am labs received 60meq oral potassium in the ER, additional added to IVF. recheck in am For Covid, currently saturating well on RA, no infiltrates on CXR. Patient is high risk of progression to severe COVID given age and comorbidities. will start remdisivir for treatment. No current inidcation for steroids Attestations Medical Necessity Statement*: anticipate less than 2 midnight stay for above care Coding Level of Care Code Acute [employer] [facility] Fwd Diagnoses COVID U07.1 FLAVIO (acute kidney injury) N17.9 Hypokalemia E87.6 Dehydration E86.0
[2022-05-20 18:32] VITALS: BMI 28.0
[2022-05-20 18:46] VITALS: BP 132/64; PULSE 78; RESP 16; O2SAT 94
[2022-05-20 20:00] VITALS: BP 120/64; PULSE 63; RESP 17; TEMP 36.4; O2SAT 90
[2022-05-20 20:40] LABS: Adenovirus Not Detected (NOT DETECT); Chlamydia Pneumoniae Not Detected (NOT DETECT); Coronavirus 229E,HKU1,NL63,OC4 Not Detected (NOT DETECT); Human Metapneumovirus Not Detected (NOT DETECT); Human Rhinovirus/Enterovirus Not Detected (NOT DETECT); Influenza A Not Detected (NOT DETECT); Influenza A H1 Not Detected (NOT DETECT); Influenza A H1-2009 Not Detected (NOT DETECT); Influenza A H3 Not Detected (NOT DETECT); Influenza B Not Detected (NOT DETECT); Mycoplasma Pneumoniae Not Detected (NOT DETECT); Parainfluenza Virus Type 1 Not Detected (NOT DETECT); Parainfluenza Virus Type 2 Not Detected (NOT DETECT); Parainfluenza Virus Type 3 Not Detected (NOT DETECT); Parainfluenza Virus Type 4 Not Detected (NOT DETECT); Respiratory Syncytial Virus A Not Detected (NOT DETECT); Respiratory Syncytial Virus B Not Detected (NOT DETECT); SARS-COV-2 Detected (NOT DETECT)
[2022-05-20 20:51] VITALS: PULSE 66; O2SAT 95
[2022-05-20] MEDS: HYDROcodone-acetaminophen 5-325 mg Tablet 1 TAB PO (23:03)
[2022-05-20] MEDS: D5-NS 0.45% + KCL 20 mEq 20 MEQ/1,000 ML BAG 75 MEQ IV (23:39)
[2022-05-21] VITALS (8 sets, daily range): BP systolic 145–162; BP diastolic 73–82; PULSE 57–70; RESP 16–17; TEMP 36.4–36.9; O2SAT 90–95
[2022-05-21] MEDS: gabapentin 300 mg Capsule PO ×2 (00:05→09:02)
[2022-05-21] MEDS: remdesivir 100 MG in sodium chloride 0.9% (100 ml) 80 ML IV ×2 (00:10→15:48)
[2022-05-21 06:24] LABS: Basophils # 0.1 10^3/uL (0.0-0.1); Basophils % 0.7 %; Eosinophils # 0.7 10^3/uL (0.0-0.8); Eosinophils % 6.8 %; Hematocrit 43.3 % (42.0-52.0); Hemoglobin 14.9 g/dL (11.7-16.6); Lymphocytes # 3.5 10^3/uL (0.8-4.8); Lymphocytes % 34.9 %; Mean Corpuscular HGB Conc 34.4 g/dL (30.0-36.0); Mean Corpuscular Hemoglobin 32.5 pg (28.0-34.0); Mean Corpuscular Volume 94.5 fl (80-94); Mean Platelet Volume 10.3 fL (7.4-10.4); Monocytes # 0.9 10^3/uL (0.2-0.9); Neutrophils # 4.86 10^3/uL (1.8-7.7); Neutrophils % 48.3 %; Nucleated Red Blood Cells % 0 %; Platelet Count 169 10^3/cmm (130-400); Red Blood Count 4.58 10^6/uL (4.1-5.3); Red Cell Distribution Width 13.1 % (12.1-15.1); White Blood Count 10.1 10^3/uL (4.0-10.0)
[2022-05-21 06:46] LABS: Alanine Aminotransferase 32 U/L (0-41); Albumin Level 3.5 g/dL (3.5-5.2); Alkaline Phosphatase 82 U/L (40-130); Anion Gap 12.3 (5-19); Aspartate Amino Transferase 36 U/L (0-40); Blood Urea Nitrogen 27 mg/dL (8-23); Carbon Dioxide 27 mmol/L (22-29); Chloride 105 mmol/L (98-107); Globulin 3.1 g/dL (1.3-4.6); Glucose 114 mg/dL (65-115); Osmolality Calculated 298 mOsm/kg (285-295); Potassium 3.3 mmol/L (3.5-5.1); Sodium 141 mmol/L (136-145); Total Bilirubin 0.5 mg/dL (0.15-1.2); Total Protein 6.6 g/dL (6.6-8.7)
--- NOTE | 2022-05-21 07:48 | PC.NURSE ---
dr. gaston notified of am potassium of 3.1. Physician replied, no new orders at this time.
[2022-05-21] MEDS: albuterol 8 gm MDI 2 PUFF INHALATION (08:37)
[2022-05-21] MEDS: potassium chloride ER 20 mEq Tablet PO (09:02)
[2022-05-21] MEDS: zinc gluconate 50 mg Tablet PO (09:02)
[2022-05-21] MEDS: labetalol 200 mg Tablet PO (09:02)
[2022-05-21] MEDS: aspirin 81 mg EC Tablet PO (09:02)
[2022-05-21] MEDS: clopidogrel 75 mg Tablet PO (09:02)
[2022-05-21] MEDS: HYDROcodone-acetaminophen 5-325 mg Tablet 1 TAB PO (10:39)
[2022-05-21] MEDS: D5-NS 0.45% + KCL 20 mEq 20 MEQ/1,000 ML BAG 75 MEQ IV (13:19)
[2022-05-21] MEDS: TRAMadol 50 mg Tablet PO (14:23)
[2022-05-21] MEDS: ondansetron 2 mg/ML SDV 2 mL 4 MG IVP (14:50)
--- NOTE | 2022-05-21 15:49 | PC.NURSE ---
dr. gaston requested remdesevir be given now so pt may be discharged after dose.
--- NOTE | 2022-05-21 17:18 | PM.DCS ---
Discharge Providers Date of Admission: 05/20/22 15:40 Date of Discharge: May 21, 2022 Attending Provider at Admission: Sharona Painting MD Attending Provider at Discharge: Vandana Hilliard MD Primary Care Provider: Joe Bustillos DO Diagnoses at Discharge Discharge Diagnosis (1) COVID: Status: Acute (2) FLAVIO (acute kidney injury): Status: Resolved (3) Hypokalemia: Status: Resolved (4) Dehydration: Status: Resolved Reason for Visit Reason for Visit: N/V/ COVID +/ CHEST PAIN Brief History: Jose Perkins is a 77 year old male? past medical history of hypertension, CAD status post drug-eluting stent to mid RCA, balloon angioplasty of distal RCA, history of tobacco abuse,AAA, type 2 diabetes mellitus, history of CVA, COPD who presents today after testing COVID + and experiencing vomiting, nausea and inability to tolerate po intake. He was noted to be dehydrated, FLAVIO with cr 1.3 and hypokalemic whihc is being repleted. ROS + fever, no dyspnea currently. CXR without pneumonitis . Denies chest pain. Hospital Course Hospital Course Mr. Perkins was admitted to observation status. He received IV fluids, electrolyte replacement and 2 doses of remdesivir. He was stable overnight and feeling better. He was felt stable for discharge home. Need for isolation and signs and symptoms of worsening COVID that would require return to emergency room were reviewed with patient and he was given an opportunity to ask questions. At the time of discharge she was awake and alert, had a cough but lungs were otherwise clear with only occasional wheeze. Not requiring oxygen. Regular rhythm. Potassium was up to 3.3 on the morning of discharge and additional potassium was administered before patient left. Serial cardiac enzymes were checked and did not show significant delta. Chest x-ray during the hospital stay did not show any acute abnormalities. He was no longer experiencing GI symptoms. Mr. Perkins acknowledge that he had been exposed to COVID by family. Discharge Data Studies Completed and Pending Completed Studies During Hospitalization Category Date Time Status XR chest 1V portable [id number] Stat Exams 05/20/22 13:17 Completed Radiology Impressions Chest X-Ray 05/20/22 13:17 IMPRESSION: No acute findings. Laboratory Results WBC 10.1 10^3/uL (4.0-10.0) H 05/21/22 06:10 RBC 4.58 10^6/uL (4.1-5.3) 05/21/22 06:10 Hgb 14.9 g/dL (11.7-16.6) 05/21/22 06:10 Hct 43.3 % (42.0-52.0) 05/21/22 06:10 MCV 94.5 fl (80-94) H 05/21/22 06:10 MCH 32.5 pg (28.0-34.0) 05/21/22 06:10 MCHC 34.4 g/dL (30.0-36.0) 05/21/22 06:10 RDW 13.1 % (12.1-15.1) 05/21/22 06:10 Plt Count 169 10^3/cmm (130-400) 05/21/22 06:10 MPV 10.3 fL (7.4-10.4) 05/21/22 06:10 Neut % (Auto) 48.3 % 05/21/22 06:10 Lymph % (Auto) 34.9 % 05/21/22 06:10 [place] % (Auto) 9.0 % 05/21/22 06:10 Eos % (Auto) 6.8 % 05/21/22 06:10 Baso % (Auto) 0.7 % 05/21/22 06:10 Neut # (Auto) 4.86 10^3/uL (1.8-7.7) 05/21/22 06:10 Lymph # (Auto) 3.5 10^3/uL (0.8-4.8) 05/21/22 06:10 [place] # (Auto) 0.9 10^3/uL (0.2-0.9) 05/21/22 06:10 Eos # (Auto) 0.7 10^3/uL (0.0-0.8) 05/21/22 06:10 Baso # (Auto) 0.1 10^3/uL (0.0-0.1) 05/21/22 06:10 Nucleated RBC % (auto) 0 % 05/21/22 06:10 Nucleated RBCs # 0.0 /100WBC 05/21/22 06:10 Sodium 141 mmol/L (136-145) 05/21/22 06:10 Potassium 3.3 mmol/L (3.5-5.1) L 05/21/22 06:10 Chloride 105 mmol/L (98-107) 05/21/22 06:10 Carbon Dioxide 27 mmol/L (22-29) 05/21/22 06:10 Anion Gap 12.3 (5-19) 05/21/22 06:10 BUN 27 mg/dL (8-23) H 05/21/22 06:10 Creatinine 1.1 mg/dL (0.7-1.2) 05/21/22 06:10 GFR Calculation Not Reportable 05/21/22 06:10 Glucose 114 mg/dL (65-115) 05/21/22 06:10 Calculated Osmolality 298 mOsm/kg (285-295) H 05/21/22 06:10 Calcium 9.0 mg/dL (8.5-10.5) 05/21/22 06:10 Total Bilirubin 0.5 mg/dL (0.15-1.2) 05/21/22 06:10 AST 36 U/L (0-40) 05/21/22 06:10 ALT 32 U/L (0-41) 05/21/22 06:10 Alkaline Phosphatase 82 U/L (40-130) 05/21/22 06:10 Troponin T Baseline 32 ng/L (0-15) H 05/20/22 13:57 Troponin T 120 Minute 28.14 ng/L (0-15) H 05/20/22 15:55 Delta Troponin T -3.86 ABS# (0-10) L 05/20/22 15:55 Total Protein 6.6 g/dL (6.6-8.7) 05/21/22 06:10 Albumin 3.5 g/dL (3.5-5.2) 05/21/22 06:10 Globulin 3.1 g/dL (1.3-4.6) 05/21/22 06:10 Coronavirus 229E (PCR) Not detected (NOT DETECT) 05/20/22 18:50 SARS-CoV-2 (PCR) Detected (NOT DETECT) A 05/20/22 18:50 Vitals Last Vital Signs Temp 98.4 F 05/21/22 15:45 Pulse 67 05/21/22 15:45 Resp 16 05/21/22 15:45 BP 162/82 05/21/22 15:45 Pulse Ox 91 05/21/22 15:45 O2 Del Method 05/21/22 15:45 O2 Flow Rate 2 05/20/22 13:10 Discharge Plan Discharge Patient Disposition: Home Condition: Stable Prescriptions: Continued clopidogrel 75 mg tablet 75 mg PO DAILY albuterol sulfate [ProAir HFA] 90 mcg/actuation HFA aerosol inhaler 2 puff INHALATION Q6H PRN (Reason: Shortness Of Breath) nitroglycerin [Nitrostat] 0.4 mg tablet, sublingual 0.4 mg SUBLINGUAL Q5M PRN (Reason: Chest Pain) cholecalciferol (vitamin D3) 125 mcg (5,000 unit) capsule 125 mcg PO DAILY labetalol 200 mg tablet 200 mg PO 0900 Qty: 30 0RF hydrocodone-acetaminophen 5-325 mg tablet 1 tab PO Q4H PRN (Reason: pain/muscle tension) 14 Days Qty: 30 0RF Rx Instructions: max of 3 per day gabapentin 300 mg capsule 300 mg PO BID Qty: 60 0RF tramadol 50 mg Tablet 50 mg PO Q8H PRN (Reason: Pain) budesonide-formoterol [Symbicort] 160-4.5 mcg/actuation HFA aerosol inhaler 2 puff INHALATION BID lisinopril 5 mg tablet 5 mg PO DAILY PRN (Reason: Blood Pressure) Rx Instructions: TAKE IF BLOOD PRESSURE IS OVER 120/70 zinc 50 mg Tablet 50 mg PO DAILY aspirin 81 mg Tablet,Delayed Release (Dr/Ec) 81 mg PO DAILY Qty: 90 0RF sertraline 50 mg tablet 50 mg PO BEDTIME chlorthalidone 25 mg Tablet 25 mg PO DAILY Qty: 30 0RF meclizine 25 mg tablet 25 mg PO BID PRN (Reason: dizziness) Qty: 30 0RF Discharge Orders: Discharge Order (Routine); Ordered 05/21/22 Ordered By: Vandana Hilliard Referrals: Joe Bustillos DO [Primary Care Provider] - 2 weeks (Please call to schedule a follow up appointment. Or sooner if needed) Discharge Diet: Advance as tolerated Discharge Activity: Increase activity as tolerated Patient Instructions: COVID-19 (Coronavirus Disease 2019) (DC), Safely Care for Someone Who Has COVID-19 (GEN), Opioid Safety Activity Restrictions/Additional Instructions: You presented to the emergency room with general malaise and symptoms of COVID for several days as well as having had a positive COVID test. You described decreased oral intake and diarrhea. Work-up in the emergency room showed evidence of some dehydration with elevated BUN and creatinine and low potassium level. You received IV fluids and potassium replacement and request was made from ER for observation admission. Fluids and potassium replacement were continued. By the following morning you were feeling better overall. You received 2 doses of remdesivir. You are not requiring any oxygen. Your laboratory studies were improved. Please isolate to decrease the spread of COVID to other people. Highest risk of symptomatic spread is during the first 5 to 10 days. Wear a mask when around others and recommend that you are open about the fact that you have COVID currently if others are around you at your home or providing transportation and other care. 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 Continue home medications as usually prescribed. Discharge Attestations Time Spent in Discharge Care*: greater than 30 min Specific Discharge Activities: educating patient, documenting/other paperwork and evaluating patient/reviewing data Quality Metrics Clinical Quality Measures [ No reported AMI, CVA or VTE this stay] Coding Level of Care Code Acute [facility] [place] note Diagnoses COVID U07.1 FLAVIO (acute kidney injury) N17.9 Hypokalemia E87.6 Dehydration E86.0
== END 2022-05-21 17:47 | disposition home or self-care (01) ==
LOC: ER 15:27 → MEDSURG 17:22
PROVIDERS: Admitting Provider Student in an Organized Health Care Education/Training Program; Emergency Provider Emergency Medicine; PCP Family Medicine; Visit Provider Hospitalist
DX: U07.1 COVID-19 (principal); N17.9 Acute kidney failure, unspecified; E87.6 Hypokalemia; E86.0 Dehydration; E11.42 Type 2 diabetes mellitus with diabetic polyneuropathy; I10 Essential (primary) hypertension; E78.5 Hyperlipidemia, unspecified; J44.9 Chronic obstructive pulmonary disease, unspecified; F17.210 Nicotine dependence, cigarettes, uncomplicated; Z79.82 Long term (current) use of aspirin; Z86.73 Personal history of transient ischemic attack (TIA), and cerebral infarction without residual deficits; Z95.5 Presence of coronary angioplasty implant and graft; Z88.0 Allergy status to penicillin
CPT/HCPCS: 71045; 80048; 80053; 84484; 85025; 87635; 93005; 94640; 96365; 96366; 99285; G0378; J2405; J3480; J3535; J7030

== ENCOUNTER → 2022-06-09 15:02 | Outpatient (BNVA) | payer MEDICARE, MEDICAID, SELFPAY | PROVIDERS: PCP Family Medicine; Visit Provider Internal Medicine | DX: I25.10 Atherosclerotic heart disease of native coronary artery without angina pectoris (principal); I10 Essential (primary) hypertension; I71.4 Abdominal aortic aneurysm, without rupture; F17.210 Nicotine dependence, cigarettes, uncomplicated | CPT/HCPCS: 99214 ==

== ENCOUNTER 2022-08-04 17:05 | Emergency (ER) | payer MEDICARE, MEDICAID, SELFPAY ==
[2022-08-04 17:17] VITALS: BMI 29.8
--- NOTE | 2022-08-04 17:22 | XRR_ITS ---
PROCEDURE INFORMATION: Exam: XR Chest Exam date and time: 08/04/2022 6:25 PM Age: 77 years old Clinical indication: Shortness of breath; Additional info: SOB TECHNIQUE: Imaging protocol: Radiologic exam of the chest. Views: 1 view. COMPARISON: CR XR chest 1V portable [id number] 05/20/2022 1:22 PM FINDINGS: Lungs: Unremarkable. No consolidation. Pleural spaces: Unremarkable. No pleural effusion. No pneumothorax. Heart/Mediastinum: Unremarkable. No cardiomegaly. Bones/joints: Unremarkable. XR/XR chest 1V portable [id number] IMPRESSION: No acute findings.
[2022-08-04 18:31] LABS: Basophils # 0.1 10^3/uL (0.0-0.1); Basophils % 0.5 %; Eosinophils # 0.1 10^3/uL (0.0-0.8); Eosinophils % 0.6 %; Hematocrit 47.6 % (42.0-52.0); Hemoglobin 16.1 g/dL (11.7-16.6); Mean Corpuscular HGB Conc 33.8 g/dL (30.0-36.0); Mean Corpuscular Hemoglobin 32.6 pg (28.0-34.0); Mean Corpuscular Volume 96.4 fl (80-94); Mean Platelet Volume 9.8 fL (7.4-10.4); Monocytes # 1.2 10^3/uL (0.2-0.9); Monocytes % 8.8 %; Neutrophils # 10.06 10^3/uL (1.8-7.7); Neutrophils % 74.8 %; Nucleated Red Blood Cells % 0 %; Platelet Count 256 10^3/cmm (130-400); Red Blood Count 4.94 10^6/uL (4.1-5.3); White Blood Count 13.5 10^3/uL (4.0-10.0)
[2022-08-04 19:18] LABS: Alanine Aminotransferase 14 U/L (0-41); Albumin Level 3.5 g/dL (3.5-5.2); Alkaline Phosphatase 109 U/L (40-130); Anion Gap 17.1 (5-19); Aspartate Amino Transferase 17 U/L (0-40); Blood Urea Nitrogen 28 mg/dL (8-23); Calcium 9.2 mg/dL (8.5-10.5); Carbon Dioxide 29 mmol/L (22-29); Chloride 93 mmol/L (98-107); Globulin 4.4 g/dL (1.3-4.6); Glucose 135 mg/dL (65-115); NT Pro B Type Natriuretic Pept 209 pg/mL (0-450); Osmolality Calculated 290 mOsm/kg (285-295); Potassium 3.1 mmol/L (3.5-5.1); Sodium 136 mmol/L (136-145); Total Bilirubin 1.2 mg/dL (0.15-1.2); Total Protein 7.9 g/dL (6.6-8.7)
--- NOTE | 2022-08-04 19:51 | ED_ITS ---
HPI - SOB/Dyspnea General: Chief Complaint: Shortness of Breath/Dyspnea Stated Complaint: CHEST PAIN/ SOB Time Seen by Provider: 08/04/22 19:41 Source: patient Mode of arrival: ambulatory Limitations: no limitations History of Present Illness: HPI Narrative: 77-year-old male who states that he has been having shortness of breath along with cough and body aches over the last 2 days. He states that he has had no known sick contacts he denies any chest pain. He has had no vomiting or diarrhea. Associated symptoms: Deny abdominal pain, chest pain, fever(s), nausea or vomiting Review of Systems Const: Denies: fever(s), chills, body aches or change in appetite Eyes: Denies: blurry vision or eye discomfort ENMT: Denies: throat pain or dental pain Card: Denies: chest pain Resp: Reports: non-productive cough GI: Denies: abdominal pain, nausea, vomiting or diarrhea : Denies: dysuria Musc: Denies: neck pain or back pain Skin/Breast: Denies: rash Neuro: Denies: headache(s) Psych: Denies: depression Bruno/Lymph: Denies: easy bruising All/Imm: Denies: urticaria PFSH ED PFSH: Medical History AAA (abdominal aortic aneurysm) ASHD (arteriosclerotic heart disease) BPH (benign prostatic hyperplasia) COPD (chronic obstructive pulmonary disease) CVA (cerebral vascular accident) Depression Diabetes Falls GERD (gastroesophageal reflux disease) HTN (hypertension) Hyperlipidemia Late latent syphilis Orthostatic dizziness Peripheral neuropathy PSA elevation Tobacco abuse Surgical History History of appendectomy S/P cataract extraction S/P tonsillectomy Family History Father Cancer Mother Diabetes Social History Smoking and tobacco status: current every day smoker cigarettes Packs smoked per day: 0.25 Alcohol intake: former Adopted: No Caregiver/support person: No Lives independently: Yes Household members: none Housing: Apartment Marital status: Current occupational status: disabled Pets and animals: No Current gender identity: Male Physical Exam Const: COMMON NORMALS: no acute distress, patient oriented x3 and healthy appearing HENMT: COMMON NORMALS: normocephalic and atraumatic HEAD & SCALP: normocephalic and atraumatic Eye: COMMON NORMALS: Equal, round and reactive pupils present and EOMs intact bilaterally PUPIL: Yes Equal, round and reactive pupils present Neck/C-Spine: COMMON NORMALS: full ROM and supple Chest: COMMONS NORMALS: normal inspection of the chest and normal palpation of entire chest wall Resp: COMMON NORMALS: normal respiratory effort, No retractions, No use of accessory muscles and clear to auscultation bilaterally AUSCULTATION: clear to auscultation bilaterally Cardio: COMMON NORMALS: regular rate, regular rhythm and No murmurs present (Cardio) RATE: regular rate RHYTHM: regular rhythm GI: COMMON NORMALS: Normal to inspection, nondistended, normoactive bowel sounds present, Soft to palpation, non-tender and no masses PALPATION: Yes Soft to palpation Extremity: COMMON NORMALS: normal to inspection and full ROM Neuro: COMMON NORMALS: patient oriented x3, moves all extremities and no focal motor deficits Psych: COMMON NORMALS: mental status grossly normal, Normal thought process present and cooperative THOUGHT PROCESS: Normal thought process present Skin: COMMON NORMALS: no rashes or lesions noted and no wounds GENERAL SKIN EXAM: no rashes or lesions noted Course Vital Signs: Vital signs: Vital Signs Pulse Rate 74 08/04/22 22:08 Respiratory Rate 23 H 08/04/22 22:08 Blood Pressure 147/74 08/04/22 22:08 Pulse Oximetry 94 08/04/22 22:08 Oxygen Delivery Me thod 08/04/22 20:21 Oxygen Flow Rate 3 08/04/22 20:21 MDM - SOB/Dyspnea Medical Decision Making Patient presents here with dyspnea he did test positive for influenza he is well-appearing here his pulse ox has been normal chest x-ray shows nothing acute. He is stable for discharge he is to follow-up with PCP and return if worsening. Lab Data 08/04/22 18:11 08/04/22 18:11 Labs/Radiology: Radiology Impressions Chest X-Ray 08/04/22 17:22 IMPRESSION: No acute findings. Laboratory Results WBC 13.5 10^3/uL (4.0-10.0) H 08/04/22 18:11 RBC 4.94 10^6/uL (4.1-5.3) 08/04/22 18:11 Hgb 16.1 g/dL (11.7-16.6) 08/04/22 18:11 Hct 47.6 % (42.0-52.0) 08/04/22 18:11 MCV 96.4 fl (80-94) H 08/04/22 18:11 MCH 32.6 pg (28.0-34.0) 08/04/22 18:11 MCHC 33.8 g/dL (30.0-36.0) 08/04/22 18:11 RDW 13.0 % (12.1-15.1) 08/04/22 18:11 Plt Count 256 10^3/cmm (130-400) 08/04/22 18:11 MPV 9.8 fL (7.4-10.4) 08/04/22 18:11 Neut % (Auto) 74.8 % 08/04/22 18:11 Lymph % (Auto) 15.0 % 08/04/22 18:11 [place] % (Auto) 8.8 % 08/04/22 18:11 Eos % (Auto) 0.6 % 08/04/22 18:11 Baso % (Auto) 0.5 % 08/04/22 18:11 Neut # (Auto) 10.06 10^3/uL (1.8-7.7) H 08/04/22 18:11 Lymph # (Auto) 2.0 10^3/uL (0.8-4.8) 08/04/22 18:11 [place] # (Auto) 1.2 10^3/uL (0.2-0.9) H 08/04/22 18:11 Eos # (Auto) 0.1 10^3/uL (0.0-0.8) 08/04/22 18:11 Baso # (Auto) 0.1 10^3/uL (0.0-0.1) 08/04/22 18:11 Nucleated RBC % (auto) 0 % 08/04/22 18:11 Nucleated RBCs # 0.0 /100WBC 08/04/22 18:11 Sodium 136 mmol/L (136-145) 08/04/22 18:11 Potassium 3.1 mmol/L (3.5-5.1) L 08/04/22 18:11 Chloride 93 mmol/L (98-107) L 08/04/22 18:11 Carbon Dioxide 29 mmol/L (22-29) 08/04/22 18:11 Anion Gap 17.1 (5-19) 08/04/22 18:11 BUN 28 mg/dL (8-23) H 08/04/22 18:11 Creatinine 1.0 mg/dL (0.7-1.2) 08/04/22 18:11 GFR Calculation Not Reportable 08/04/22 18:11 Glucose 135 mg/dL (65-115) H 08/04/22 18:11 Calculated Osmolality 290 mOsm/kg (285-295) 08/04/22 18:11 Calcium 9.2 mg/dL (8.5-10.5) 08/04/22 18:11 Total Bilirubin 1.2 mg/dL (0.15-1.2) 08/04/22 18:11 AST 17 U/L (0-40) 08/04/22 18:11 ALT 14 U/L (0-41) 08/04/22 18:11 Alkaline Phosphatase 109 U/L (40-130) 08/04/22 18:11 Troponin T Baseline 27 ng/L (0-15) H 08/04/22 18:11 Troponin T 120 Minute 26.18 ng/L (0-15) H 08/04/22 20:08 Delta Troponin T -0.82 ABS# (0-10) L 08/04/22 20:08 NT-Pro-B Natriuret Pep 209 pg/mL (0-450) 08/04/22 18:11 Total Protein 7.9 g/dL (6.6-8.7) 08/04/22 18:11 Albumin 3.5 g/dL (3.5-5.2) 08/04/22 18:11 Globulin 4.4 g/dL (1.3-4.6) 08/04/22 18:11 Influenza Type A Ag negative (Negative) 08/04/22 19:56 Influenza Type B Ag positive (Negative) 08/04/22 19:56 SARS-CoV-2 Ag (Rapid) negative (Negative) 11/21/22 19:56 EKG Data EKG 1: I personally reviewed and interpreted this EKG as follows: EKG Interpretation Date: 08/04/22 EKG interpretation time: 17:22 Interpretation: nsr hr [address] or t wave abnormalities qrs 116 qtc 415 EKG 2: I personally reviewed and interpreted this EKG as follows: EKG Interpretation Date: 08/04/22 EKG interpretation time: 20:17 Interpretation: nsr hr [address] or t wave abnormalities qrs 117 qtc 440 Discharge Plan Discharge Patient Disposition: Home Clinical Impression: Influenza Condition: Stable Prescriptions: No Action clopidogrel 75 mg tablet 75 mg PO DAILY albuterol sulfate [ProAir HFA] 90 mcg/actuation HFA aerosol inhaler 2 puff INHALATION Q6H PRN (Reason: Shortness Of Breath) nitroglycerin [Nitrostat] 0.4 mg tablet, sublingual 0.4 mg SUBLINGUAL Q5M PRN (Reason: Chest Pain) cholecalciferol (vitamin D3) 125 mcg (5,000 unit) capsule 125 mcg PO DAILY (DME) wheelchair See Rx Instructions .Route .MEDSUPPLY Qty: 1 0RF Rx Instructions: As directed for ambulation labetalol 200 mg tablet 200 mg PO 0900 Qty: 30 0RF gabapentin 300 mg capsule 300 mg PO BID Qty: 60 0RF tramadol 50 mg tablet 50 mg PO Q8H PRN (Reason: Pain) Qty: 60 0RF hydrocodone-acetaminophen 5-325 mg tablet 1 tab PO BID PRN (Reason: pain/muscle tension) 30 Days Qty: 60 0RF budesonide-formoterol [Symbicort] 160-4.5 mcg/actuation HFA aerosol inhaler 2 puff INHALATION BID lisinopril 5 mg tablet 5 mg PO DAILY PRN (Reason: Blood Pressure) Rx Instructions: TAKE IF BLOOD PRESSURE IS OVER 120/70 zinc 50 mg Tablet 50 mg PO DAILY aspirin 81 mg Tablet,Delayed Release (Dr/Ec) 81 mg PO DAILY Qty: 90 0RF sertraline 50 mg tablet 50 mg PO BEDTIME chlorthalidone 25 mg Tablet 25 mg PO DAILY Qty: 30 0RF meclizine 25 mg tablet 25 mg PO BID PRN (Reason: dizziness) Qty: 30 0RF Discharge Orders: Discharge ED (Routine); Ordered 08/04/22 Ordered By: Quincy Smith Referrals: Joe Bustillos, [Primary Care Provider] - Discharge Diet: Advance as tolerated Discharge Activity: Resume usual activity Patient Instructions: Influenza (ED) Coding Level of Care Code ED Sql Programmer Analyst for Chg Fwd Exam Comprehensive
--- NOTE | 2022-08-04 19:53 | ECG_ITS ---
[facility] Test Date: 2022-08-04 Pat Name: Jose Perkins Department: Room: Gender: Male Paper Maker: : 1945 Requested By: Quincy Smith Order Number: [id number] Asael MD: Uma Patel M.D. Measurements Intervals [place] Rate: 74 P: 88 ID: [id number] QRS: 75 QRSD: 117 T: 73 QT: 413 QTc: 460 Interpretive Statements SINUS RHYTHM POSSIBLE INFERIOR MYOCARDIAL INFARCTION , PROBABLY OLD [30 ms Q WAVE IN II/aVF] Compared to ECG 05/20/2022 15:14:38 Myocardial infarct finding now present Electronically Signed On 08-05-2022 20:33:48 FEDERAL AID COORDINATOR by Uma Patel M.D. [email or web address] [email or web address] memorial hospitalMovero, Inc.[facility].[place] [employer]/store/OM/[id number]
[2022-08-04 20:20] LABS: Troponin(5th) Baseline 27 ng/L (0-15)
[2022-08-04 20:21] VITALS: BP 127/59; PULSE 73; RESP 20; O2SAT 95
[2022-08-04 20:30] LABS: SARS Covid-2 Antigen negative (Negative)
[2022-08-04 20:31] LABS: Influenza A by IFA negative (Negative); Influenza B by IFA positive (Negative)
[2022-08-04 20:48] LABS: Troponin 5 2HR 26.18 ng/L (0-15)
[2022-08-04 20:51] LABS: Troponin 5 2HR Delta -0.82 ABS# (0-10)
[2022-08-04 22:08] VITALS: BP 147/74; PULSE 74; RESP 23; O2SAT 94
== END 2022-08-04 21:55 | disposition home or self-care (01) ==
PROVIDERS: Family Medicine; Emergency Provider Emergency Medicine; PCP Family Medicine
DX: J11.1 Influenza due to unidentified influenza virus with other respiratory manifestations (principal); Z79.02 Long term (current) use of antithrombotics/antiplatelets; Z79.82 Long term (current) use of aspirin; Z20.822 Contact with and (suspected) exposure to COVID-19; J44.9 Chronic obstructive pulmonary disease, unspecified; Z86.73 Personal history of transient ischemic attack (TIA), and cerebral infarction without residual deficits; E11.9 Type 2 diabetes mellitus without complications; I10 Essential (primary) hypertension; E78.5 Hyperlipidemia, unspecified; F17.210 Nicotine dependence, cigarettes, uncomplicated
CPT/HCPCS: 36415; 71045; 80053; 83880; 84484; 85025; 87426; 87804; 93005; 99285

== ENCOUNTER → 2023-03-13 12:22 | Outpatient (BNVA) | payer MEDICARE, MEDICAID, SELFPAY | PROVIDERS: PCP Family Medicine; Visit Provider Family Medicine | DX: Z13.6 Encounter for screening for cardiovascular disorders (principal); N40.0 Benign prostatic hyperplasia without lower urinary tract symptoms; G25.81 Restless legs syndrome; I71.40 Abdominal aortic aneurysm, without rupture, unspecified; M79.2 Neuralgia and neuritis, unspecified; R53.1 Weakness | CPT/HCPCS: 80053; 80061; 83036; 85025 ==

== ENCOUNTER → 2023-04-03 11:36 | Outpatient (BNVA) | payer MEDICARE, MEDICAID, SELFPAY | PROVIDERS: PCP Family Medicine; Visit Provider Family Medicine | DX: E87.1 Hypo-osmolality and hyponatremia (principal) | CPT/HCPCS: 80048 ==

== ENCOUNTER → 2023-04-20 11:15 | Outpatient (BNVA) | payer MEDICARE, MEDICAID, SELFPAY | PROVIDERS: PCP Family Medicine; Visit Provider Family Medicine | DX: E87.6 Hypokalemia (principal) | CPT/HCPCS: 80048 ==

== ENCOUNTER → 2023-08-31 08:24 | Outpatient (BNVA) | payer MEDICARE, MEDICAID, SELFPAY | PROVIDERS: PCP Family Medicine; Visit Provider Family Medicine | DX: F41.9 Anxiety disorder, unspecified (principal); I10 Essential (primary) hypertension; M19.90 Unspecified osteoarthritis, unspecified site; M79.2 Neuralgia and neuritis, unspecified; R26.89 Other abnormalities of gait and mobility; E11.9 Type 2 diabetes mellitus without complications | CPT/HCPCS: 80053; 83036; 85025 ==

== ENCOUNTER 2023-10-05 17:40 | Inpatient (IN) | payer MEDICARE, MEDICAID, SELFPAY ==
[2023-10-05] VITALS (8 sets, daily range): BP systolic 116–146; BP diastolic 46–79; PULSE 66–89; RESP 14–18; O2SAT 15–97
--- NOTE | 2023-10-05 17:41 | XRR_ITS ---
PROCEDURE INFORMATION: Exam: XR Chest Exam date and time: 10/05/2023 6:03 PM Age: 78 years old Clinical indication: Shortness of breath; Additional info: Cxp TECHNIQUE: Imaging protocol: Radiologic exam of the chest. Views: 1 view. COMPARISON: CR XR chest 1V portable [id number] 08/04/2022 6:25 PM FINDINGS: Lungs: Unremarkable. No consolidation. Pleural spaces: Unremarkable. No pleural effusion. No pneumothorax. Heart/Mediastinum: Unremarkable. No cardiomegaly. Bones/joints: Unremarkable. XR/XR chest 1V portable [id number] IMPRESSION: No acute findings.
--- NOTE | 2023-10-05 17:44 | ECG_ITS ---
[facility] Test Date: 2023-10-05 Pat Name: Jose Perkins Department: Room: Gender: Male Clod Puller: : 1945 Requested By: Reggie Noriega Order Number: [id number] Asael MD: Uma Patel M.D. Measurements Intervals [place] Rate: 88 P: 96 MI: 169 QRS: 58 QRSD: 112 T: 47 QT: 363 QTc: 440 Interpretive Statements SINUS RHYTHM MODERATE INTRAVENTRICULAR CONDUCTION DELAY [110+ ms QRS DURATION] Compared to ECG 08/04/2022 20:17:28 Intraventricular conduction delay now present Myocardial infarct finding no longer present Electronically Signed On 10-05-2023 18:49:48 BLEACH BOILER FILLER by Uma Patel M.D. [email or web address] [email or web address]/store/[id number]
--- NOTE | 2023-10-05 17:55 | W.ED.SOB ---
HPI - SOB/Dyspnea General: Chief Complaint: Shortness of Breath/Dyspnea Stated Complaint: sob, chest pain Time Seen by Provider: 10/05/23 17:41 History of Present Illness: HPI Narrative: 78-year-old male presents to the emergency department via EMS personnel secondary to feeling increased shortness of breath throughout the day today. He states he did wake up from sleeping this morning and felt extremely short of breath and had some left-sided chest pain that he describes as a pressure type pain that was a 3 out of 10 at that time. He states the pain is now subsided after receiving a nitroglycerin tablet via EMS personnel. He states that he does not use any type of supplemental oxygen at home and does not use a CPAP or BiPAP. He states he has an extensive cardiac history to include 7 cardiac stents in the past. He states he does take aspirin and Plavix for anticoagulation. He states that for the previous 3 days he has had increased work of breathing and a wet sounding cough. He states that he smokes half pack of cigarettes daily and has a history of COPD. He denies nausea vomiting chills or night sweats. He states he did have an elevated temperature earlier today but cannot remember exactly what it was. He states he does remember that it was over 100 ?F. Associated symptoms: Reports chest pain and fever(s) Review of Systems General: Reports: 10 or more systems reviewed and unremarkable except in HPI and below Const: Reports: fever(s) Card: Reports: chest pain Resp: Reports: dyspnea, non-productive cough and wheezing [facility] ED PFSH: Medical History (Updated 10/05/23 @ 20:48 by Reggie Noriega MD) Diabetes HTN (hypertension) Late latent syphilis PSA elevation Orthostatic dizziness AAA (abdominal aortic aneurysm) Falls Hyperlipidemia Depression Peripheral neuropathy BPH (benign prostatic hyperplasia) GERD (gastroesophageal reflux disease) Tobacco abuse ASHD (arteriosclerotic heart disease) CVA (cerebral vascular accident) COPD (chronic obstructive pulmonary disease) Surgical History History of appendectomy S/P cataract extraction S/P tonsillectomy Family History Father Cancer Mother Diabetes Social History Smoking and tobacco/nicotine status: current every day tobacco/nicotine user cigarettes Packs smoked per day: 0.25 Alcohol intake: former Substance/Drug Use: former Adopted: No Caregiver/support person: No Lives independently: Yes Household members: none Housing: Apartment Marital status: Current occupational status: disabled Pets and animals: No Current gender identity: Male Physical Exam Narrative: EXAM NARRATIVE: Constitutional: the patient appears well nourished and of normal development. Vital signs as documented. Mild respiratory distress obvious increased work of breathing at present.. Alert and oriented-to person, place, time and situation. Head, eyes, ears, nose, mouth, throat: Normocephalic, atraumatic. Pupils-equal, round, reactive to light. No scleral icterus. Normal-appearing external ears. Normal appearing nasal turbinates, no drainage. No obvious oral lesions, posterior oropharynx without erythema or exudates. Neck: Supple, trachea is midline, no lymphadenopathy, no jugular venous distension, thyromegaly, or carotid bruits. Carotid upstrokes are brisk bilaterally. Lungs: Significant scattered expiratory wheezes with prolonged expiratory phase. Decreased bilaterally in the bases. Symmetrical rise and fall of chest, obvious signs of increased work of breathing at present. Cardiac: Regular rate and rhythm, positive S1, S2. No murmurs, rubs or gallops that I can appreciate Abdomen: Soft, non-tender to palpation, normal active bowel sounds to all quadrants. No palpable masses, no organomegaly and abdominal bruits. Extremities: 2+ pulses in the upper extremities that are equal bilaterally, 2+ pulses in the lower extremities that are equal bilaterally. Non-edematous. Moves all extremities well, sensation to all extremities are noted. Skin: Warm, dry, intact. Course Vital Signs: Vital signs: Vital Signs Pulse Rate 78 10/05/23 21:09 Respiratory Rate 14 10/05/23 21:09 Blood Pressure 116/46 10/05/23 21:09 Pulse Oximetry 92 10/05/23 21:09 Oxygen Delivery Me thod Nasal Cannula 10/05/23 21:09 Oxygen Flow Rate 2.5 10/05/23 21:09 MDM - SOB/Dyspnea Medical Decision Making 78-year-old male presents emergency department via EMS personnel with increased work of breathing. He does have an extensive coronary artery disease history with 7 stents on anticoagulation to include aspirin and Plavix, he does have a history of COPD and continues to use tobacco products-cigarettes daily. I will obtain a chest x-ray, CBC, CMP cardiac enzymes and serial EKGs as well as provide him an hour-long breathing treatment and IV steroids. Differential diagnosis includes NSTEMI, atypical chest pain, viral respiratory illness, COPD exacerbation, pneumonia. Medical Records I reviewed the patient's medical records. Lab Data I reviewed the patient's lab results. 10/05/23 17:52 10/05/23 17:52 Labs/Radiology: Radiology Impressions Chest X-Ray 10/05/23 17:41 IMPRESSION: No acute findings. Laboratory Results WBC 9.83 10^3/uL (3.29-11.43) 10/05/23 17:52 RBC 5.10 10^6/uL (3.85-5.65) 10/05/23 17:52 Hgb 15.80 g/dL (11.27-16.99) 10/05/23 17:52 Hct 47.9 % (37-53) 10/05/23 17:52 MCV 93.9 fl (82-101) 10/05/23 17:52 MCH 31.0 pg (27-33) 10/05/23 17:52 MCHC 33.0 g/dL (30-55) 10/05/23 17:52 RDW 13.2 % (12.1-15.1) 10/05/23 17:52 Plt Count 184 10^3/cmm (157-399) 10/05/23 17:52 MPV 10.3 fL (7.4-10.4) 10/05/23 17:52 Neut % (Auto) 70.1 % 10/05/23 17:52 Lymph % (Auto) 20.7 % 10/05/23 17:52 [place] % (Auto) 7.0 % 10/05/23 17:52 Eos % (Auto) 1.1 % 10/05/23 17:52 Baso % (Auto) 0.8 % 10/05/23 17:52 Neut # (Auto) 6.89 10^3/uL (1.8-7.7) 10/05/23 17:52 Lymph # (Auto) 2.0 10^3/uL (0.8-4.8) 10/05/23 17:52 [place] # (Auto) 0.7 10^3/uL (0.2-0.9) 10/05/23 17:52 Eos # (Auto) 0.1 10^3/uL (0.0-0.8) 10/05/23 17:52 Baso # (Auto) 0.1 10^3/uL (0.0-0.1) 10/05/23 17:52 Nucleated RBC % (auto) 0 % 10/05/23 17:52 Nucleated RBCs # 0.0 /100WBC 10/05/23 17:52 PT 14.00 SECONDS (12.1-14.9) 10/05/23 17:52 INR 1.04 (0.8-1.2) 10/05/23 17:52 APTT 21.2 SECONDS (23.9-36.7) L 10/05/23 17:52 Sodium 137 mmol/L (136-145) 10/05/23 17:52 Potassium 3.8 mmol/L (3.5-5.1) 10/05/23 17:52 Chloride 97 mmol/L (98-107) L 10/05/23 17:52 Carbon Dioxide 28 mmol/L (22-29) 10/05/23 17:52 Anion Gap 15.8 (5-19) 10/05/23 17:52 BUN 19 mg/dL (8-23) 10/05/23 17:52 Creatinine 1.1 mg/dL (0.7-1.2) 10/05/23 17:52 GFR Calculation Not Reportable 10/05/23 17:52 Glucose 170 mg/dL (65-115) H 10/05/23 17:52 Calculated Osmolality 290 mOsm/kg (285-295) 10/05/23 17:52 Calcium 9.8 mg/dL (8.5-10.5) 10/05/23 17:52 Total Bilirubin 0.7 mg/dL (0.15-1.2) 10/05/23 17:52 AST 43 U/L (0-40) H 10/05/23 17:52 ALT 31 U/L (0-41) 10/05/23 17:52 Alkaline Phosphatase 95 U/L (40-130) 10/05/23 17:52 Troponin T Baseline 19 ng/L (0-15) H 10/05/23 17:52 Troponin T 120 Minute 20.06 ng/L (0-15) H 10/05/23 19:41 Delta Troponin T 1.06 ABS# (0-10) 10/05/23 19:41 NT-Pro-B Natriuret Pep 170 pg/mL (0-450) 10/05/23 17:52 Total Protein 7.8 g/dL (6.6-8.7) 10/05/23 17:52 Albumin 3.9 g/dL (3.5-5.2) 10/05/23 17:52 Globulin 3.9 g/dL (1.3-4.6) 10/05/23 17:52 Influenza Type A Ag negative (Negative) 10/05/23 18:37 Influenza Type B Ag positive (Negative) H 10/05/23 18:37 SARS-CoV-2 Ag (Rapid) negative (Negative) 10/05/23 18:37 All radiology interpretation(s) finalized by discharge EKG Data EKG 1: Interpretation: Twelve-lead EKG obtained at 1744 and reviewed at 1744 demonstrates sinus rhythm with a ventricular rate of 88 bpm, UT interval 169, QRS duration 112, QT 363, QTc 408 at present there is no ST elevation or depression to demonstrate acute ischemia or infarction. Discharge Plan Discharge Patient Disposition: Admitted As Inpatient Clinical Impression: COPD exacerbation, Hypoxemia, Influenza A Condition: Stable Coding Level of Care Code ED Pre Sales Technical Consultant for Ledy Hernandez
[2023-10-05] MEDS: aspirin 81 mg Chew Tablet 324 MG PO (17:59)
[2023-10-05] MEDS: methylPREDNISolone sod succ 125 mg/2 mL INJ 60 MG IVP (18:00)
[2023-10-05 18:06] LABS: Basophils # 0.1 10^3/uL (0.0-0.1); Basophils % 0.8 %; Eosinophils # 0.1 10^3/uL (0.0-0.8); Eosinophils % 1.1 %; Hematocrit 47.9 % (37-53); Lymphocytes % 20.7 %; Mean Corpuscular Volume 93.9 fl (82-101); Mean Platelet Volume 10.3 fL (7.4-10.4); Monocytes # 0.7 10^3/uL (0.2-0.9); Neutrophils # 6.89 10^3/uL (1.8-7.7); Neutrophils % 70.1 %; Nucleated Red Blood Cells % 0 %; Platelet Count 184 10^3/cmm (157-399); Red Cell Distribution Width 13.2 % (12.1-15.1); White Blood Count 9.83 10^3/uL (3.29-11.43)
[2023-10-05 18:24] LABS: Troponin(5th) Baseline 19 ng/L (0-15)
[2023-10-05] MEDS: albuterol 2.5 mg/3 mL Neb 10 MG INHALATION (18:24)
[2023-10-05 18:25] LABS: INR 1.04 (0.8-1.2); Partial Thromboplastin Time 21.2 SECONDS (23.9-36.7)
[2023-10-05 18:34] LABS: Alanine Aminotransferase 31 U/L (0-41); Albumin Level 3.9 g/dL (3.5-5.2); Alkaline Phosphatase 95 U/L (40-130); Anion Gap 15.8 (5-19); Aspartate Amino Transferase 43 U/L (0-40); Blood Urea Nitrogen 19 mg/dL (8-23); Calcium 9.8 mg/dL (8.5-10.5); Carbon Dioxide 28 mmol/L (22-29); Chloride 97 mmol/L (98-107); Globulin 3.9 g/dL (1.3-4.6); Glucose 170 mg/dL (65-115); NT Pro B Type Natriuretic Pept 170 pg/mL (0-450); Osmolality Calculated 290 mOsm/kg (285-295); Potassium 3.8 mmol/L (3.5-5.1); Sodium 137 mmol/L (136-145); Total Bilirubin 0.7 mg/dL (0.15-1.2); Total Protein 7.8 g/dL (6.6-8.7)
[2023-10-05 19:22] LABS: Influenza A by IFA negative (Negative); Influenza B by IFA positive (Negative); SARS Covid-2 Antigen negative (Negative)
[2023-10-05 20:05] LABS: Troponin 5 2HR 20.06 ng/L (0-15); Troponin 5 2HR Delta 1.06 ABS# (0-10)
--- NOTE | 2023-10-05 21:38 | PC.NURSE ---
Pt was placed on 3L nasal cannula to maintain sats in low to mid 90s. Dr Noriega aware.
[2023-10-05 21:46] LABS: ABG PCO2 47.3 mmHg (35-45); Alveolar-Arterial Oxygen Gradi 2.3 mmHg (5-10); Arterial Blood Gas Hematocrit 47.4 % (42-52); Base Excess ABG 3.8 mmol/L (-2.0-2.0); Blood Gas Sample Site Brachial, left; Blood Gas Sample Type Arterial; Carboxyhemoglobin 2.4 %THgb (0.4-20.1); HCO3 ABG 29.6 mmol/L (22-26); HGB O2 Sat 92.5 % (95-100); Ionized Calcium Level - ABG 1.3 mmol/L (1.1-1.4); Methemoglobin 0.5 % (0.4-1.5); Oxygen Device NC; Oxygen Saturation ABG 95.2; PO2 ABG 74.6 mmHg (80.0-100.0); Potassium Level - ABG 3.9 mmol/L (3.5-5.0); Total Hemoglobin 15.4 g/dL (14-18)
--- NOTE | 2023-10-05 22:55 | P.HP_ITS ---
Providers/Chief Complaint 2 Primary Care Provider: Joe Bustillos DO Chief Complaint: sob, chest pain History of Present Illness Jose Perkins is a 78 year old male with a past medical history of CAD status post stenting, hypertension, hyperlipidemia, COPD, CVA, non insulin-dependent type 2 diabetes mellitus, BPH, who presents to [facility] for shortness of breath, cough, fatigue, malaise. Patient tells me that for the last few days, he has had increasing shortness of breath, shortness of breath with exertion no orthopnea, no paroxysmal nocturnal dyspnea, he has a nonproductive cough, reports pleurisy, does report chest pain, fatigue, malaise, no sick contacts, recent travel, is a active smoker, has a history of COPD Review of Systems 2 Const: Reports: fatigue and malaise; Denies: fever(s) or chills Card: Reports: chest pain Resp: Reports: dyspnea and non-productive cough Medications/Allergies Home Medications Medication Instructions Recorded Confirmed Last Taken Type albuterol sulfate 90 mcg/actuation 2 puff inhalation Q6H PRN 12/02/19 05/29/23 08/14/20 History aerosol inhaler (ProAir HFA) Shortness Of Breath clopidogrel 75 mg tablet 75 mg PO DAILY 12/02/19 07/10/23 05/20/22 History nitroglycerin 0.4 mg sublingual 0.4 mg sublingual Q5M PRN Chest 12/02/19 04/03/23 02/17/22 History tablet (Nitrostat) Pain budesonide-formoterol HFA 160 2 puff inhalation BID 06/12/21 04/03/23 05/20/22 History mcg-4.5 mcg/actuation aerosol inhaler (Symbicort) zinc 50 mg tablet 50 mg PO DAILY 02/02/22 04/03/23 05/20/22 History aspirin 81 mg tablet,delayed 81 mg PO DAILY #90 tabs 02/05/22 08/31/23 05/20/22 Rx release cholecalciferol (vitamin D3) 125 125 mcg PO DAILY 04/11/22 04/03/23 05/20/22 History mcg (5,000 unit) capsule sertraline 50 mg tablet 50 mg PO BEDTIME 04/24/22 04/03/23 05/19/22 History chlorthalidone 25 mg tablet 25 mg PO DAILY #30 tabs 05/01/22 04/03/23 05/20/22 Rx meclizine 25 mg tablet 25 mg PO BID PRN dizziness #30 tabs 05/01/22 04/03/23 Unknown Rx labetalol 200 mg tablet 200 mg PO 0900 #30 tabs 05/09/22 04/03/23 05/20/22 Rx lisinopril 5 mg tablet 5 mg PO DAILY PRN Blood Pressure 05/20/22 04/03/23 Unknown History wheelchair #1 ea 06/13/22 04/03/23 Unknown Rx promethazine-DM 6.25 mg-15 mg/5 mL See Rx Instructions .Route 10/28/22 04/03/23 Unknown Rx oral syrup .COMPLEX #200 mL tramadol 50 mg tablet 50 mg PO Q8H PRN Pain #60 tabs 01/13/23 04/03/23 Unknown Rx ketoconazole 2 %-hydrocortisone 1 applic topical DAILY for tinea 03/13/23 04/03/23 Unknown Rx 2.5 % topical cream infection, scalp and friend #30 grams tamsulosin 0.4 mg capsule 0.4 mg PO DAILY urination #30 caps 03/13/23 04/03/23 Unknown Rx hydroxyzine HCl 25 mg tablet 25 mg PO BID PRN anxiety or panic 04/03/23 04/03/23 Unknown Rx attack #20 tabs potassium chloride 20 mEq 20 meq PO BID hypokalemia #180 tabs 04/07/23 04/07/23 Unknown Rx tablet,extended release ropinirole 2 mg tablet 2 mg PO .qhs #30 tabs 05/01/23 05/01/23 Unknown Rx gabapentin 300 mg capsule 600 mg (2 x 300 mg) PO TID 05/29/23 05/29/23 Unknown Rx neuropathic pain #180 caps clindamycin HCl 300 mg capsule 300 mg PO TID infection #30 caps 07/10/23 07/10/23 Unknown Rx mupirocin 2 % topical ointment 1 applic topical BID skin 07/10/23 07/10/23 Unknown Rx infection #22 grams trazodone 150 mg tablet 150 mg PO DAILY sleep/depression 07/30/23 Unknown Rx 10 days #10 tabs metformin 500 mg tablet 500 mg PO BID #180 tabs 09/14/23 Unknown Rx hydrocodone 5 mg-acetaminophen 325 1 tab PO TID pain/muscle tension 1 09/22/23 Unknown Rx mg tablet month #90 tabs Allergies Allergy/AdvReac Type Severity Reaction Status Date / Time Penicillins Allergy Unknown Unknown Verified 10/05/23 17:50 tirofiban Allergy Unknown Unknown Verified 10/05/23 17:50 [From Aggrastat Concentrate] shellfish derived Allergy ADR-Vomitin Verified 10/05/23 17:50 g lorazepam [From Ativan] AdvReac Severe ADR-Halluci Verified 10/05/23 17:50 nating PFSH Acute 2 PFSH: Medical History Diabetes HTN (hypertension) Late latent syphilis PSA elevation Orthostatic dizziness AAA (abdominal aortic aneurysm) Falls Hyperlipidemia Depression Peripheral neuropathy BPH (benign prostatic hyperplasia) GERD (gastroesophageal reflux disease) Tobacco abuse ASHD (arteriosclerotic heart disease) CVA (cerebral vascular accident) COPD (chronic obstructive pulmonary disease) Surgical History History of appendectomy S/P cataract extraction S/P tonsillectomy Family History Father Cancer Mother Diabetes Social History Smoking and tobacco/nicotine status: current every day tobacco/nicotine user cigarettes Packs smoked per day: 0.25 Alcohol intake: former Substance/Drug Use: former Adopted: No Caregiver/support person: No Lives independently: Yes Household members: none Housing: Apartment Marital status: Current occupational status: disabled Pets and animals: No Current gender identity: Male Vitals/I&O/Wt Last Vital Signs Pulse 66 10/05/23 22:17 Resp 14 10/05/23 22:17 BP 117/55 10/05/23 22:17 Pulse Ox 96 10/05/23 22:17 O2 Del Method Nasal Cannula 10/05/23 22:17 O2 Flow Rate 3 10/05/23 22:17 Physical Exam 2 Const: COMMON NORMALS: no acute distress and patient oriented x3 HENMT: COMMON NORMALS: normocephalic HEAD & SCALP: normocephalic Neck/C-Spine: COMMON NORMALS: no JVD Resp: COMMON NORMALS: normal respiratory effort, No retractions and No use of accessory muscles AUSCULTATION: wheezes Cardio: COMMON NORMALS: no JVD, regular rate, regular rhythm, S1 normal heart sound present and S2 normal heart sound present RATE: regular rate RHYTHM: regular rhythm HEART SOUNDS: S1 normal heart sound present and S2 normal heart sound present GI: COMMON NORMALS: Normal to inspection, nondistended, normoactive bowel sounds present, Soft to palpation and non-tender Extremity: COMMON NORMALS: no calf tenderness and no pedal edema Neuro: COMMON NORMALS: patient oriented x3, CN's II-XII intact bilaterally, moves all extremities and no focal motor deficits Psych: COMMON NORMALS: mental status grossly normal Data 10/05/23 17:52 10/05/23 17:52 A&P Assessment and plan (1) Acute hypoxic respiratory failure: (2) COPD exacerbation: (3) Influenza B: (4) Chest pain: Plan Acute hypoxic respiratory failure, requiring 3 L -Secondary to COPD -Influenza B COPD exacerbation -DuoNeb -Budesonide -Solu-Medrol 40 mg IV every 8 hours -Doxycycline IV -Monitor respiratory status closely Influenza B -Start Tamiflu Chest pain -Serial EKGs, troponins, telemetry monitoring CAD ? Continue aspirin, Plavix Type 2 diabetes mellitus, low-dose sliding scale Attestations 2 Medical Necessity Statement*: Patient requires hospitalization, inpatient, greater than 2 midnights, for acute hypoxic respiratory failure secondary to COPD, influenza B Diagnoses Acute hypoxic respiratory failure J96.01 COPD exacerbation J44.1 Influenza B J10.1 Chest pain R07.9
[2023-10-05 22:57] LABS: Troponin 5 6HR 18.03 ng/L (0-15)
[2023-10-05 23:11] LABS: Troponin 5 6HR Delta -0.97 ng/L (0-12)
[2023-10-05 23:24] LABS: Lactic Sepsis W/Reflex 1.4 mmol/L (0.5-2.2)
[2023-10-05 23:35] LABS: Procalcitonin 0.31 ng/mL (0-0.5)
[2023-10-06] VITALS (35 sets, daily range): BP systolic 129–188; BP diastolic 56–118; PULSE 61–89; RESP 10–21; TEMP 36.4–36.7; O2SAT 90–98; BMI 29.6
[2023-10-06 00:37] LABS: Cholesterol 165 mg/dL (0-200); HDL Cholesterol 30 mg/dL (60-100); LDL Cholesterol Calculated 112 mg/dL (50-129); LDL HDL Ratio 3.73 RATIO (0.00-3.22); Thyroid Stimulating Hormone 0.95 uIU/mL (0.27-4.20); Triglycerides 116 mg/dL (0-150)
[2023-10-06 00:41] LABS: Estmated Average Glucose 206; Hemoglobin A1C 8.8 % (4.0-6.0)
[2023-10-06] MEDS: oseltamivir phosphate 75 mg Capsule PO ×3 (01:03→17:41)
[2023-10-06] MEDS: pantoprazole 40 mg SDV IVP ×2 (01:03→20:13)
[2023-10-06] MEDS: doxycycline 100 MG in sodium chloride 0.9% (plus) 100 ML IV (01:03)
[2023-10-06] MEDS: enoxaparin 40 mg/0.4 mL Syringe SUBCUT ×2 (01:03→20:13)
--- NOTE | 2023-10-06 02:40 | PC.NURSE ---
Report called to AURELIO Pérez in ICU. All questions and concerns addressed at time of report.
[2023-10-06] MEDS: ipratropium-albuterol 3 mL Neb INHALATION ×4 (04:05→20:53)
--- NOTE | 2023-10-06 04:12 | PC.NURSE ---
Admit to ICU: Pt arrived to ICU 5 @0300. Connected to continuos cardiac monitoring. When completing suicidal risk questions pt had stated that he had thoughts of harming himself and was suicidal 2 years ago. Upon further investigation, pt clarified that he is not suicidal right now and does not have active thoughts or intention to harm himself right now. The last time he had those thoughts was [address] Mosher notified. No new orders at this time.
[2023-10-06 04:59] LABS: Basophils % 0.2 %; Hematocrit 46.1 % (37-53); Lymphocytes # 1.1 10^3/uL (0.8-4.8); Lymphocytes % 12.1 %; Mean Corpuscular HGB Conc 33.4 g/dL (30-55); Mean Corpuscular Hemoglobin 31.3 pg (27-33); Mean Corpuscular Volume 93.7 fl (82-101); Mean Platelet Volume 10.3 fL (7.4-10.4); Monocytes # 0.2 10^3/uL (0.2-0.9); Monocytes % 2.6 %; Neutrophils # 7.44 10^3/uL (1.8-7.7); Neutrophils % 84.5 %; Nucleated Red Blood Cells % 0 %; Platelet Count 181 10^3/cmm (157-399); Red Blood Count 4.92 10^6/uL (3.85-5.65); Red Cell Distribution Width 13.3 % (12.1-15.1); White Blood Count 8.81 10^3/uL (3.29-11.43)
[2023-10-06] MEDS: TRAMadol 50 mg Tablet PO (05:16)
[2023-10-06 05:27] LABS: Anion Gap 15.2 (5-19); Blood Urea Nitrogen 26 mg/dL (8-23); Calcium 9.6 mg/dL (8.5-10.5); Carbon Dioxide 28 mmol/L (22-29); Chloride 97 mmol/L (98-107); Glucose 310 mg/dL (65-115); Magnesium 1.7 mg/dL (1.7-2.3); Osmolality Calculated 299 mOsm/kg (285-295); Phosphorus 3.1 mg/dL (2.5-4.5); Potassium 4.2 mmol/L (3.5-5.1); Sodium 136 mmol/L (136-145)
[2023-10-06] MEDS: methylPREDNISolone sod succ 40 mg/mL INJ IVP (06:11)
--- NOTE | 2023-10-06 06:14 | PC.NURSE ---
Anxiety: Pt reporting a mild amount of anxiety @0600. Pt states that he suffers from anxiety at home but that he is anxious now because it is hard to breath. Helped reposition pt so head is up, NC @3L, SpO2 97%. Precedex not started at this time.
[2023-10-06 07:57] LABS: Glucose Point of Care 309 mg/dL (70-110)
[2023-10-06] MEDS: tamsulosin 0.4 mg Capsule PO (08:00)
[2023-10-06] MEDS: labetalol 200 mg Tablet PO (08:01)
[2023-10-06] MEDS: gabapentin 300 mg Capsule 600 MG PO ×3 (08:01→20:11)
[2023-10-06] MEDS: chlorthalidone 25 mg Tablet PO (08:01)
[2023-10-06] MEDS: aspirin 81 mg EC Tablet PO (08:01)
[2023-10-06] MEDS: clopidogrel 75 mg Tablet PO (08:01)
[2023-10-06] MEDS: HYDROcodone-acetaminophen 5-325 mg Tablet 1 TAB PO ×3 (08:01→20:11)
[2023-10-06] MEDS: insulin lispro 100 unit/1 mL SUBCUT ×3 (08:01→17:42)
[2023-10-06] MEDS: zolpidem 5 mg Tablet PO (08:32)
[2023-10-06] MEDS: budesonide 0.5 mg/2 mL Neb INHALATION ×2 (08:45→20:53)
--- NOTE | 2023-10-06 08:48 | P.PN_ITS ---
Subjective 2 Subjective: Patient is from a facility, active smoker, currently on 3 L Eating breakfast No active chest pain Vitals/I&O/Wt Last Vital Signs Temp 97.5 F L 10/06/23 04:00 Pulse 75 10/06/23 08:48 Resp 18 10/06/23 08:40 BP 188/111 10/06/23 06:00 Pulse Ox 95 10/06/23 08:40 O2 Del Method Nasal Cannula 10/06/23 08:40 O2 Flow Rate 2 10/06/23 08:40 10/05/23 10/06/23 10/06/23 22:59 06:59 14:59 Intake Total 100 / 100 360 / 360 Output Total 125 / 125 400 / 400 Balance -25 / -25 -40 / -40 Weight last 48 hrs Weight 96.298 kg Weight 103.873 kg Physical Exam 2 Narrative: Awake and alert Pleasant cooperative GCS 15 Currently on 3 L No active chest pain or shortness of breath however mild wheezing noted Abdomen soft Euvolemic S1, S2 Data 10/06/23 04:15 10/06/23 04:15 A&P Assessment and plan (1) HTN (hypertension): (2) AAA (abdominal aortic aneurysm): (3) Diabetes: (4) BPH (benign prostatic hyperplasia): (5) Influenza A: (6) Myalgia: (7) COPD exacerbation: (8) Hypoxemia: (9) Acute hypoxic respiratory failure: (10) Weakness: Plan Influenza positive Acute COPD exacerbation requiring oxygen Off of oxygen evaluation tomorrow we will plan to send him back to his facility Afebrile Will request echo Patient is an active smoker Full code Hyperglycemia, check A1c level and adjust insulin sliding scale No active chest pain Will follow-up with echo Attestations 2 Medical Necessity Statement*: Discharge tomorrow Diagnoses Essential hypertension I10 AAA (abdominal aortic aneurysm) I71.4 Diabetes E11.9 BPH (benign prostatic hyperplasia) N40.0 Influenza A J10.1 Myalgia M79.10 COPD exacerbation J44.1 Hypoxemia R09.02 Acute hypoxic respiratory failure J96.01 Weakness R53.1
--- NOTE | 2023-10-06 08:51 | USCV_ITS ---
Jose Perkins Age: 78 Gender: M : 1945 Exam Date: 10/06/2023 09:14 Ordering Phys: Love Toscano MD Technologist: Constantine Kent Exam Location: [facility] – [place], [place] Indication: chest pain BP: 134 / 68 HR: 67 Rhythm: Sinus Technical Quality: Adequate MEASUREMENTS (Male / Female) Normal Values 2D ECHO LV Diastolic Diameter PLAX 3.8 cm 4.2 - 5.9 / 3.9 - 5.3 cm LV Systolic Diameter PLAX 2.6 cm IVS Diastolic Thickness 1.5 cm 0.6 - 1.0 / 0.6 - 0.9 cm IVS Systolic Thickness 1.7 cm LVPW Diastolic Thickness 1.6 cm 0.6 - 1.0 / 0.6 - 0.9 cm LVPW Systolic Thickness 1.9 cm LVOT Diameter 2.1 cm LV Ejection Fraction 2D Teich 59.0 % LV Ejection Fraction MOD 2C 75.2 % LV Ejection Fraction 2C AL 75.2 % LA Diameter 3.7 cm LA Width 4.1 cm M-MODE Aortic Annulus Diameter 3.8 cm LA Ao Ratio MM 1.0 MV E Point Septal Separation 1.6 cm DOPPLER AV Peak Velocity 183.0 cm/s LVOT Peak Velocity 111.0 cm/s AV Area Cont Eq vti 2.4 cm squared AV Area Cont Eq pk 2.1 cm squared MV Area PHT 2.4 cm squared Mitral E to A Ratio 0.8 MV E' Velocity 38.5 cm/s Mitral E to MV E' Ratio 8.8 Mitral E to LV E' Lateral Ratio 7.8 Mitral E to LV E' Septal Ratio 9.9 TR Peak Velocity 204.0 cm/s TR Peak Gradient 16.6 mmHg TV Peak E Velocity 80.0 cm/s Right Atrial Pressure 3.0 mmHg Pulmonary Artery Systolic Pressu 19.6 mmHg FINDINGS Left Ventricle Normal left ventricular size and systolic function, EF 75 %. No regional wall motion abnormalities. Grade I/IV diastolic dysfunction (abnormal relaxation filling pattern), normal to mildly elevated filling pressures. Right Ventricle The right ventricle is normal in size and function. Right Atrium The right atrium is normal in size. Left Atrium The left atrium is normal in size. Mitral Valve Thickened mitral valve. Aortic Valve Thickened aortic valve. Tricuspid Valve No gross abnormalities noted Pulmonic Valve Pulmonic valve not well visualized. Pericardium No significant pericardial effusion Aorta Normal ascending aorta dimension. IVC The inferior vena cava appears normal. CONCLUSIONS Normal left ventricular size and systolic function, EF 75 %. No regional wall motion abnormalities. Grade I/IV diastolic dysfunction (abnormal relaxation filling pattern), normal to mildly elevated filling pressures. Thickened aortic and mitral valves. There is no pericardial effusion. Technically difficult study Dr Uma Patel MD FACC (Electronically Signed) Final Date: 06 October 2023 12:55 S
[2023-10-06 09:20] LABS: NT Pro B Type Natriuretic Pept 224 pg/mL (0-450)
--- NOTE | 2023-10-06 12:00 | PC.NURSE ---
Pt was literally begging for sleep this morning and the hospitalist ordered for the pt to have an ambien this a.m. With that being said, the pt is asleep at this time. I will go ahead and let the pt continue to sleep until someone else needs to awaken the pt; otherwise, I will let him continue to sleep and will give his medications and check his blood sugar at that time. I will keep the pt lunch tray available here in the unit as well.
[2023-10-06 14:52] LABS: Glucose Point of Care 268 mg/dL (70-110)
[2023-10-06] MEDS: doxycycline 100 mg Tablet PO ×2 (14:53→20:11)
[2023-10-06 17:41] LABS: Glucose Point of Care 256 mg/dL (70-110)
[2023-10-06 20:08] LABS: Glucose Point of Care 191 mg/dL (70-110)
[2023-10-06] MEDS: insulin glargine 100 units/1 mL 10 UNIT SUBCUT (20:11)
[2023-10-06] MEDS: sertraline 50 mg Tablet PO (20:11)
[2023-10-06] MEDS: trazodone 150 mg Tablet PO (20:11)
[2023-10-07] VITALS (22 sets, daily range): BP systolic 115–164; BP diastolic 57–96; PULSE 59–95; RESP 13–22; TEMP 36.5–36.7; O2SAT 86–96
[2023-10-07 04:47] LABS: Basophils % 0.3 %; Eosinophils % 0.1 %; Hematocrit 49.4 % (37-53); Lymphocytes # 2.8 10^3/uL (0.8-4.8); Lymphocytes % 26.9 %; Mean Corpuscular HGB Conc 32.8 g/dL (30-55); Mean Corpuscular Hemoglobin 30.6 pg (27-33); Mean Corpuscular Volume 93.4 fl (82-101); Mean Platelet Volume 10.3 fL (7.4-10.4); Monocytes # 0.7 10^3/uL (0.2-0.9); Monocytes % 7.1 %; Neutrophils # 6.74 10^3/uL (1.8-7.7); Neutrophils % 65.4 %; Nucleated Red Blood Cells % 0 %; Platelet Count 198 10^3/cmm (157-399); Red Blood Count 5.29 10^6/uL (3.85-5.65); Red Cell Distribution Width 13.4 % (12.1-15.1)
--- NOTE | 2023-10-07 05:06 | PC.NURSE ---
Patient transferred to CSU. Report called to AURELIO Dos Santos. Patient pleasant and cooperative.
[2023-10-07 05:12] LABS: Anion Gap 13.8 (5-19); Blood Urea Nitrogen 30 mg/dL (8-23); Calcium 10.1 mg/dL (8.5-10.5); Carbon Dioxide 30 mmol/L (22-29); Chloride 98 mmol/L (98-107); Glucose 183 mg/dL (65-115); Osmolality Calculated 297 mOsm/kg (285-295); Potassium 3.8 mmol/L (3.5-5.1); Sodium 138 mmol/L (136-145)
[2023-10-07] MEDS: ipratropium-albuterol 3 mL Neb INHALATION ×3 (07:54→20:55)
[2023-10-07] MEDS: budesonide 0.5 mg/2 mL Neb INHALATION ×2 (07:54→20:55)
[2023-10-07 07:56] LABS: Glucose Point of Care 146 mg/dL (70-110)
[2023-10-07] MEDS: insulin lispro 100 unit/1 mL SUBCUT ×3 (08:30→17:38)
[2023-10-07] MEDS: aspirin 81 mg EC Tablet PO (08:32)
[2023-10-07] MEDS: oseltamivir phosphate 75 mg Capsule PO ×2 (08:32→17:35)
[2023-10-07] MEDS: HYDROcodone-acetaminophen 5-325 mg Tablet 1 TAB PO ×3 (08:32→21:29)
[2023-10-07] MEDS: doxycycline 100 mg Tablet PO ×2 (08:32→17:35)
[2023-10-07] MEDS: tamsulosin 0.4 mg Capsule PO (08:32)
[2023-10-07] MEDS: clopidogrel 75 mg Tablet PO (08:32)
[2023-10-07] MEDS: labetalol 200 mg Tablet PO (08:33)
[2023-10-07] MEDS: chlorthalidone 25 mg Tablet PO (08:33)
[2023-10-07] MEDS: gabapentin 300 mg Capsule 600 MG PO ×3 (08:33→21:29)
--- NOTE | 2023-10-07 10:07 | PM.DCS ---
Discharge Providers Date of Admission: 10/05/23 21:25 Date of Discharge: October 07, 2023 Attending Provider at Admission: Johnson Mosher MD Attending Provider at Discharge: Johnson Mosher MD Primary Care Provider: Joe Bustillos DO Diagnoses at Discharge Discharge Diagnosis (1) HTN (hypertension): Status: Acute (2) AAA (abdominal aortic aneurysm): Status: Chronic (3) Diabetes: Status: Acute (4) BPH (benign prostatic hyperplasia): Status: Acute (5) Influenza A: Status: Acute (6) Myalgia: Status: Acute (7) COPD exacerbation: Status: Acute (8) Hypoxemia: Status: Acute (9) Acute hypoxic respiratory failure: Status: Acute (10) Weakness: Status: Acute Reason for Visit Reason for Visit: sob, chest pain Hospital Course Hospital Course 78-year male who is an active smoker, uses 2 L of oxygen at baseline, presented from his facility for worsening of shortness of breath, he was using 3 to 4 L of oxygen during hospitalization, he was diagnosed with influenza type B, he was given Tamiflu and empirical antibiotic coverage, he remained afebrile, no leukocytosis, patient has been counseled on smoking cessation I will be able to discharge him today after home oxygen evaluation at [place] he has used 3 L of oxygen, will give him refills for Symbicort, albuterol, Spiriva and Medrol pack along with doxycycline He will resume his antihypertensive regimen. Will request CT chest before his discharge as well. Physical Exam Narrative: No active shortness of breath or chest pain Eating breakfast He was on room air at the time of evaluation Alcohol on ambulation will require 2 to 3 L Abdomen soft No active signs of heart failure Pleasant and cooperative Discharge Data Studies Completed and Pending Completed Studies During Hospitalization Category Date Time Status XR chest 1V portable [id number] Stat Exams 10/05/23 17:41 Completed CV. echo complete* [id number] Routine Ultrasound 10/06/23 08:51 Completed Pending at discharge Category Date Time Status Blood Cultures ([facility]) Routine Lab 10/05/23 23:55 Received Blood Cultures ([facility]) Routine Lab 10/06/23 00:05 Received Radiology Impressions Chest X-Ray 10/05/23 17:41 IMPRESSION: No acute findings. Laboratory Results WBC 10.30 10^3/uL (3.29-11.43) 10/07/23 04:12 RBC 5.29 10^6/uL (3.85-5.65) 10/07/23 04:12 Hgb 16.20 g/dL (11.27-16.99) 10/07/23 04:12 Hct 49.4 % (37-53) 10/07/23 04:12 MCV 93.4 fl (82-101) 10/07/23 04:12 MCH 30.6 pg (27-33) 10/07/23 04:12 MCHC 32.8 g/dL (30-55) 10/07/23 04:12 RDW 13.4 % (12.1-15.1) 10/07/23 04:12 Plt Count 198 10^3/cmm (157-399) 10/07/23 04:12 MPV 10.3 fL (7.4-10.4) 10/07/23 04:12 Neut % (Auto) 65.4 % 10/07/23 04:12 Lymph % (Auto) 26.9 % 10/07/23 04:12 Randall % (Auto) 7.1 % 10/07/23 04:12 Eos % (Auto) 0.1 % 10/07/23 04:12 Baso % (Auto) 0.3 % 10/07/23 04:12 Neut # (Auto) 6.74 10^3/uL (1.8-7.7) 10/07/23 04:12 Lymph # (Auto) 2.8 10^3/uL (0.8-4.8) 10/07/23 04:12 Randall # (Auto) 0.7 10^3/uL (0.2-0.9) 10/07/23 04:12 Eos # (Auto) 0.0 10^3/uL (0.0-0.8) 10/07/23 04:12 Baso # (Auto) 0.0 10^3/uL (0.0-0.1) 10/07/23 04:12 Nucleated RBC % (auto) 0 % 10/07/23 04:12 Nucleated RBCs # 0.0 /100WBC 10/07/23 04:12 PT 14.00 SECONDS (12.1-14.9) 10/05/23 17:52 INR 1.04 (0.8-1.2) 10/05/23 17:52 APTT 21.2 SECONDS (23.9-36.7) L 10/05/23 17:52 Specimen Type Arterial 10/05/23 21:35 Sample Site Brachial, left 10/05/23 21:35 ABG pH 7.40 (7.35-7.45) 10/05/23 21:35 ABG pCO2 47.3 mmHg (35-45) H 10/05/23 21:35 ABG pO2 74.6 mmHg (80.0-100.0) L 10/05/23 21:35 ABG HCO3 29.6 mmol/L (22-26) H 10/05/23 21:35 ABG O2 Saturation 95.2 10/05/23 21:35 ABG Base Excess 3.8 mmol/L (-2.0-2.0) H 10/05/23 21:35 Mario Test N/a 10/05/23 21:35 A-a O2 Gradient 2.3 mmHg (5-10) L 10/05/23 21:35 Hematocrit 47.4 % (42-52) 10/05/23 21:35 Hgb O2 Saturation 92.5 % (95-100) L 10/05/23 21:35 Carboxyhemoglobin 2.4 %THgb (0.4-20.1) 10/05/23 21:35 Methemoglobin 0.5 % (0.4-1.5) 10/05/23 21:35 Total Hemoglobin 15.4 g/dL (14-18) 10/05/23 21:35 Sodium 138.0 mmol/L (131-143) 10/05/23 21:35 Potassium 3.9 mmol/L (3.5-5.0) 10/05/23 21:35 Glucose 253.0 mg/dL (70-115) H 10/05/23 21:35 Ionized Calcium 1.3 mmol/L (1.1-1.4) 10/05/23 21:35 O2 Delivery Device Nc 10/05/23 21:35 O2 Liters/Min 2.0 % 10/05/23 21:35 Icer Machine Operator ID [email or web address] 10/05/23 21:35 Sodium 138 mmol/L (136-145) 10/07/23 04:12 Potassium 3.8 mmol/L (3.5-5.1) 10/07/23 04:12 Chloride 98 mmol/L (98-107) 10/07/23 04:12 Carbon Dioxide 30 mmol/L (22-29) H 10/07/23 04:12 Anion Gap 13.8 (5-19) 10/07/23 04:12 BUN 30 mg/dL (8-23) H 10/07/23 04:12 Creatinine 1.0 mg/dL (0.7-1.2) 10/07/23 04:12 GFR Calculation Not Reportable 10/07/23 04:12 Glucose 183 mg/dL (65-115) H 10/07/23 04:12 POC Glucose 146 mg/dL (70-110) H 10/07/23 07:48 Estimat Average Glucose 206 10/05/23 17:52 Hemoglobin A1c 8.8 % (4.0-6.0) H 10/05/23 17:52 Calculated Osmolality 297 mOsm/kg (285-295) H 10/07/23 04:12 Lactic Acid 1.4 mmol/L (0.5-2.2) 10/05/23 22:53 Calcium 10.1 mg/dL (8.5-10.5) 10/07/23 04:12 Phosphorus 3.1 mg/dL (2.5-4.5) 10/06/23 04:15 Magnesium 1.7 mg/dL (1.7-2.3) 10/06/23 04:15 Total Bilirubin 0.7 mg/dL (0.15-1.2) 10/05/23 17:52 AST 43 U/L (0-40) H 10/05/23 17:52 ALT 31 U/L (0-41) 10/05/23 17:52 Alkaline Phosphatase 95 U/L (40-130) 10/05/23 17:52 Troponin T Baseline 19 ng/L (0-15) H 10/05/23 17:52 Troponin T 120 Minute 20.06 ng/L (0-15) H 10/05/23 19:41 Delta Troponin T 1.06 ABS# (0-10) 10/05/23 19:41 Troponin T Hi Sens 6Hr 18.03 ng/L (0-15) H 10/05/23 22:34 Troponin T Hi Sens 6Hr Delta -0.97 ng/L (0-12) L 10/05/23 22:34 NT-Pro-B Natriuret Pep 224 pg/mL (0-450) 10/06/23 04:15 Total Protein 7.8 g/dL (6.6-8.7) 10/05/23 17:52 Albumin 3.9 g/dL (3.5-5.2) 10/05/23 17:52 Globulin 3.9 g/dL (1.3-4.6) 10/05/23 17:52 Triglycerides 116 mg/dL (0-150) 10/05/23 19:41 Cholesterol 165 mg/dL (0-200) 10/05/23 19:41 LDL Cholesterol, Calc 112 mg/dL (50-129) 10/05/23 19:41 HDL Cholesterol 30 mg/dL (60-100) L 10/05/23 19:41 LDL/HDL Ratio 3.73 RATIO (0.00-3.22) H 10/05/23 19:41 Cholesterol/HDL Ratio 5.50 mg/dL (1.0-5.00) H 10/05/23 19:41 Procalcitonin 0.31 ng/mL (0-0.5) 10/05/23 22:38 TSH 0.95 uIU/mL (0.27-4.20) 10/05/23 19:41 Influenza Type A Ag negative (Negative) 10/05/23 18:37 Influenza Type B Ag positive (Negative) H 10/05/23 18:37 SARS-CoV-2 Ag (Rapid) negative (Negative) 10/05/23 18:37 Vitals Last Vital Signs Temp 98.0 F 10/07/23 08:27 Pulse 64 10/07/23 10:00 Resp 17 10/07/23 08:27 BP 144/96 10/07/23 08:27 Pulse Ox 87 L 10/07/23 09:52 O2 Del Method Room Air 10/07/23 08:27 O2 Flow Rate 1.5 10/07/23 09:52 Discharge Plan Discharge Patient Disposition: Xfer Other Condition: Stable Prescriptions: New albuterol sulfate 90 mcg/actuation HFA aerosol inhaler 2 inh inhalation Q8H PRN (Reason: shortness of breath or wheezing) Qty: 6.7 3RF Spiriva Respimat 1.25 mcg/actuation mist 2 inh inhalation DAILY Qty: 4 5RF Januvia 50 mg tablet 50 mg PO DAILY Qty: 90 3RF insulin glargine [Lantus Solostar U-100 Insulin] 100 unit/mL (3 mL) insulin pen 5 unit SUBCUT QPM Qty: 15 4RF methylprednisolone [Medrol ([place]iff)] 4 mg tablets,dose pack See Rx Instructions .ROUTE .COMPLEX Qty: 21 0RF Rx Instructions: orally per package directions doxycycline hyclate 100 mg tablet 100 mg PO BID 3 Days Qty: 6 0RF oseltamivir [Tamiflu] 75 mg capsule 75 mg PO BID 5 Days Qty: 10 0RF insulin lispro [Humalog KwikPen Insulin] 100 unit/mL insulin pen See Rx Instructions .ROUTE .COMPLEX Qty: 15 4RF Rx Instructions: Blood sugar 150-199 please take 3 units Blood sugar 200 -249 please take 5 units Blood sugar 250-299 please take 7 units Blood sugar 300-349 please take 10 units 350-399 please take 12 units Above 400 take 16 units and notify your doctor Continued clopidogrel 75 mg tablet 75 mg PO DAILY nitroglycerin [Nitrostat] 0.4 mg tablet, sublingual 0.4 mg SUBLINGUAL Q5M PRN (Reason: Chest Pain) cholecalciferol (vitamin D3) 125 mcg (5,000 unit) capsule 125 mcg PO DAILY (DME) wheelchair See Rx Instructions .Route .MEDSUPPLY Qty: 1 0RF Rx Instructions: As directed for ambulation mupirocin 2 % ointment 1 applic topical BID Qty: 22 3RF gabapentin 300 mg capsule 600 mg PO TID Qty: 180 5RF promethazine-DM 6.25-15 mg/5 mL syrup See Rx Instructions .ROUTE .COMPLEX Qty: 200 3RF Dose Instruction: TAKE ONE TEASPOONFUL (5 ML'S) BY MOUTH EVERY 6 HOURS NEEDED FOR COUGH Rx Instructions: TAKE ONE TEASPOONFUL (5 ML'S) BY MOUTH EVERY 6 HOURS NEEDED FOR COUGH tramadol 50 mg tablet 50 mg PO Q8H PRN (Reason: Pain) Qty: 60 5RF hydrocodone-acetaminophen 5-325 mg tablet 1 tab PO TID 30 Days Qty: 90 0RF lisinopril 5 mg tablet 5 mg PO DAILY PRN (Reason: Blood Pressure) Rx Instructions: TAKE IF BLOOD PRESSURE IS OVER 120/70 aspirin 81 mg Tablet,Delayed Release (Dr/Ec) 81 mg PO DAILY Qty: 90 0RF sertraline 50 mg tablet 50 mg PO BEDTIME chlorthalidone 25 mg Tablet 25 mg PO DAILY Qty: 30 0RF meclizine 25 mg tablet 25 mg PO BID PRN (Reason: dizziness) Qty: 30 0RF zinc acetate 50 mg (zinc) Capsule 50 mg PO DAILY acetaminophen 500 mg Tablet 500 - 1,000 mg PO Q6H PRN (Reason: Pain) isosorbide mononitrate 60 mg tablet extended release 24 hr 60 mg PO BID tamsulosin 0.4 mg capsule 0.4 mg PO BEDTIME ropinirole 2 mg tablet 2 mg PO BEDTIME pantoprazole 40 mg tablet,delayed release (DR/EC) 40 mg PO DAILY diltiazem HCl 120 mg capsule,extended release 24hr 120 mg PO DAILY Antacid 200-200-20 mg/5 mL Suspension 10 - 20 ml PO QID PRN (Reason: Acid Reflux) Rx Instructions: administer between meals and at bedtime mirtazapine 7.5 mg tablet 7.5 mg PO BEDTIME Milk of Magnesia 400 mg/5 mL Suspension 30 ml PO DAILY PRN (Reason: Constipation) Mylanta 200-200-20 mg/5 mL Suspension 30 ml PO QID PRN (Reason: Acid Reflux) Rx Instructions: administer between meals and at bedtime Symbicort 160-4.5 mcg/actuation HFA aerosol inhaler 2 puff INHALATION BID 360 Days Qty: 10.2 3RF Changed potassium chloride 20 mEq tablet extended release 20 meq PO DAILY Qty: 180 1RF Discontinued hydroxyzine HCl 25 mg tablet 25 mg PO BID PRN (Reason: anxiety or panic attack) Qty: 20 0RF Discharge Orders: Discharge Order (Routine); Ordered 10/07/23 Ordered By: Love Toscano Referrals: Joe Bustillos DO [Primary Care Provider] - Patient Instructions: Opioid Safety Activity Restrictions/Additional Instructions: You will use moderate dose sliding scale for your high blood sugar Blood sugar 150-199 please take 3 units Blood sugar 200 -249 please take 5 units Blood sugar 250-299 please take 7 units Blood sugar 300-349 please take 10 units 350-399 please take 12 units Above 400 take 16 units and notify your doctor Discharge Attestations Time Spent in Discharge Care*: greater than 30 min Quality Metrics Clinical Quality Measures [ No reported AMI, CVA or VTE this stay] Coding Level of Care Code Acute Code for Chg Fwd Diagnoses Essential hypertension I10 AAA (abdominal aortic aneurysm) I71.4 Diabetes E11.9 BPH (benign prostatic hyperplasia) N40.0 Influenza A J10.1 Myalgia M79.10 COPD exacerbation J44.1 Hypoxemia R09.02 Acute hypoxic respiratory failure J96.01 Weakness R53.1
--- NOTE | 2023-10-07 10:09 | CT_ITS ---
WS: [id number] CTA OF THE CHEST WITH PULMONARY EMBOLISM PROTOCOL TECHNIQUE: High-resolution contrast enhanced CTA of the chest with coronal and sagittal reformatted i isaccs with pulmonary embolism protocol. MIP images are also reviewed. CLINICAL INFORMATION: Shortness of breath COMPARISON: CTA chest 04/24/2022 DLP: 544.[address] scans at [facility] use at least one of these dose optimization techniques: automated e xposure control; mA and/or kV adjustment per patient size (includes targeted exams where dose is matc hed to clinical indication); or iterative reconstruction. FINDINGS: Proximal main pulmonary arteries are normal. Normal segmental and subsegmental pulmonary ar teries. No evidence of pulmonary embolus. Aortic calcification. Coronary calcification. No mediastinal or hilar lymphadenopathy. No axillary ly mphadenopathy. Hepatomegaly. Cholecystectomy. Adrenal glands are normal. Partially visualized bilateral renal cysts. Fatty atrophy of the pancreas. Small esophageal hiatal hernia. Aneurysmal upper abdominal aorta kenneth uring 4.2 x 3.8 cm. This is partially visualized and was present in 2021. Moderate chronic emphysematous changes. No acute pulmonary infiltrates. Mild thoracic curve. Hypertro phic changes thoracic spine with ankylosis. Ovoid nodule RIGHT lower lobe measuring 11 mm stable since 04/24/2022 with a few punctate calcificatio ns. This is also stable since 2020. IMPRESSION: 1. No evidence of pulmonary embolus. 2. Stable 11 mm nodule RIGHT lower lobe with a few punctate calcifications. 3. No other acute findings.
[2023-10-07 11:01] LABS: Base Excess VBG 4.5 mmol/L (-3.0-3.0); Blood Gas Operator Identificat GD; Blood Gas Sample Site Not specified; Blood Gas Sample Type Venous; HCO3 VBG 30.9 mmol/L (24-28); PCO2 VBG 50.6 mmHg (41-51); PO2 VBG 55.2 mmHg (25-40); Venous Blood Gas Hematocrit 51.1 % (42-52); pH VBG 7.39 (7.32-7.42)
--- NOTE | 2023-10-07 11:05 | PC.SOCIAL ---
Pg 2 IMM Explained to pt Pg 2 IMM. No questions voiced. Provided pt a copy. Initialed, dated, & timed a copy & placed in chart.
[2023-10-07 11:19] LABS: D Dimer 0.93 ug/mLFEU (0-0.59)
--- NOTE | 2023-10-07 11:44 | P.PN_ITS ---
Subjective 2 Subjective: Cancel my discharge orders Patient has started to wheeze around 11 AM He is complaining of shortness of breath however oxygen requirement has not worsened Afebrile Echo is showing grade 1 diastolic dysfunction Vitals/I&O/Wt Last Vital Signs Temp 98.0 F 10/07/23 08:27 Pulse 64 10/07/23 10:00 Resp 17 10/07/23 08:27 BP 144/96 10/07/23 08:27 Pulse Ox 87 L 10/07/23 09:52 O2 Del Method Room Air 10/07/23 08:27 O2 Flow Rate 1.5 10/07/23 09:52 10/06/23 10/07/23 10/07/23 22:59 06:59 14:59 Intake Total 600 / 1320 118 / 118 Output Total 550 / 1350 300 / 1650 Balance 50 / -30 -300 / -330 118 / 118 Weight last 48 hrs Weight 98.5 kg Weight 96.298 kg Weight 103.873 kg Physical Exam 2 Narrative: Euvolemic awake and alert Currently on 1 to 2 L Gets shortness of breath on exertion No active chest pain Pleasant and calm Nonfocal neuroexam Data 10/07/23 04:12 10/07/23 04:12 A&P Assessment and plan (1) Anxiety: (2) HTN (hypertension): (3) Diabetes: (4) BPH (benign prostatic hyperplasia): (5) Influenza B: (6) Weakness: (7) COPD exacerbation: (8) Hypoxemia: Plan Discharge orders were canceled because patient started wheezing I will continue steroids Continue doxycycline Patient will need insulin at the time of discharge I will give him 1 more day on current regimen Full code Will need home oxygen evaluation Will request CTA chest To smoker and has COPD exacerbation Attestations 2 Medical Necessity Statement*: Continue medical management Coding Level of Care Code Acute Code for [facility] Fwd Diagnoses Anxiety F41.9 Essential hypertension I10 Diabetes E11.9 BPH (benign prostatic hyperplasia) N40.0 Influenza B J10.1 Weakness R53.1 COPD exacerbation J44.1 Hypoxemia R09.02
[2023-10-07] MEDS: iohexol 350 mg/mL 500 mL Btl (per mL) IV (11:47)
[2023-10-07 12:19] LABS: Glucose Point of Care 204 mg/dL (70-110)
[2023-10-07] MEDS: methylPREDNISolone sod succ 40 mg/mL INJ IVP ×2 (12:57→21:29)
[2023-10-07 17:43] LABS: Glucose Point of Care 184 mg/dL (70-110)
[2023-10-07] MEDS: trazodone 150 mg Tablet PO (21:29)
[2023-10-07] MEDS: insulin glargine 100 units/1 mL 10 UNIT SUBCUT (21:30)
[2023-10-07] MEDS: sertraline 50 mg Tablet PO (21:30)
[2023-10-07 21:35] LABS: Glucose Point of Care 265 mg/dL (70-110)
[2023-10-08] VITALS (13 sets, daily range): BP systolic 131–148; BP diastolic 66–88; PULSE 62–79; RESP 15–20; TEMP 36.5–37.2; O2SAT 91–96; BMI 30.2
[2023-10-08] MEDS: enoxaparin 40 mg/0.4 mL Syringe SUBCUT (00:15)
[2023-10-08] MEDS: pantoprazole 40 mg SDV IVP (00:15)
[2023-10-08 05:00] LABS: Basophils % 0.1 %; Hematocrit 52.2 % (37-53); Lymphocytes # 1.6 10^3/uL (0.8-4.8); Lymphocytes % 18.7 %; Mean Corpuscular HGB Conc 32.6 g/dL (30-55); Mean Corpuscular Hemoglobin 31.3 pg (27-33); Mean Corpuscular Volume 96.1 fl (82-101); Monocytes # 0.4 10^3/uL (0.2-0.9); Monocytes % 4.1 %; Neutrophils # 6.73 10^3/uL (1.8-7.7); Neutrophils % 76.8 %; Nucleated Red Blood Cells % 0 %; Platelet Count 223 10^3/cmm (157-399); Red Blood Count 5.43 10^6/uL (3.85-5.65); Red Cell Distribution Width 13.6 % (12.1-15.1); White Blood Count 8.77 10^3/uL (3.29-11.43)
[2023-10-08 05:20] LABS: Anion Gap 18.6 (5-19); Blood Urea Nitrogen 43 mg/dL (8-23); Calcium 10.2 mg/dL (8.5-10.5); Carbon Dioxide 27 mmol/L (22-29); Chloride 96 mmol/L (98-107); Glucose 217 mg/dL (65-115); Osmolality Calculated 303 mOsm/kg (285-295); Potassium 3.6 mmol/L (3.5-5.1); Sodium 138 mmol/L (136-145)
[2023-10-08] MEDS: methylPREDNISolone sod succ 40 mg/mL INJ IVP (05:36)
[2023-10-08 07:05] LABS: Glucose Point of Care 202 mg/dL (70-110)
--- NOTE | 2023-10-08 07:31 | ECG_ITS ---
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 Measurements Intervals [place] Rate: 73 P: 85 GA: 175 QRS: 61 QRSD: 122 T: 52 QT: 399 QTc: 442 Interpretive Statements SINUS RHYTHM Compared to ECG 10/05/2023 17:44:13 Intraventricular conduction delay no longer present Electronically Signed On 10-08-2023 9:29:21 SANITARIAN INSPECTOR by Jean-Pierre Allen M.D. [id number]
[2023-10-08] MEDS: insulin lispro 100 unit/1 mL SUBCUT ×2 (08:30→12:48)
[2023-10-08] MEDS: gabapentin 300 mg Capsule 600 MG PO (08:36)
[2023-10-08] MEDS: tamsulosin 0.4 mg Capsule PO (08:36)
[2023-10-08] MEDS: chlorthalidone 25 mg Tablet PO (08:36)
[2023-10-08] MEDS: oseltamivir phosphate 75 mg Capsule PO (08:37)
[2023-10-08] MEDS: doxycycline 100 mg Tablet PO (08:37)
[2023-10-08] MEDS: clopidogrel 75 mg Tablet PO (08:37)
[2023-10-08] MEDS: aspirin 81 mg EC Tablet PO (08:37)
[2023-10-08] MEDS: HYDROcodone-acetaminophen 5-325 mg Tablet 1 TAB PO (08:37)
[2023-10-08] MEDS: budesonide 0.5 mg/2 mL Neb INHALATION (09:06)
[2023-10-08] MEDS: ipratropium-albuterol 3 mL Neb INHALATION ×2 (09:06→11:42)
--- NOTE | 2023-10-08 09:38 | P.DS_ITS ---
Discharge Providers Date of Admission: 10/05/23 21:25 Date of Discharge: October 08, 2023 Attending Provider at Admission: Johnson Mosher MD Attending Provider at Discharge: Love Toscano MD Primary Care Provider: Joe Bustillos DO Diagnoses at Discharge Discharge Diagnosis (1) Anxiety: Status: Acute (2) HTN (hypertension): Status: Acute (3) Diabetes: Status: Acute (4) BPH (benign prostatic hyperplasia): Status: Acute (5) Influenza B: Status: Acute (6) Weakness: Status: Acute (7) COPD exacerbation: Status: Acute (8) Hypoxemia: Status: Acute Reason for Visit Reason for Visit: sob, chest pain Hospital Course Hospital Course 78-year male who is an active smoker, uses 2 L of oxygen at baseline, presented from his facility for worsening of shortness of breath, he was using 3 to 4 L of oxygen during hospitalization, he was diagnosed with influenza type B, he was given Tamiflu and empirical antibiotic coverage, he remained afebrile, no leukocytosis, patient has been counseled on smoking cessation I will be able to discharge him today after home oxygen evaluation at [facility] he has used 3 L of oxygen, will give him refills for Symbicort, albuterol, Spiriva and Medrol pack along with doxycycline He will resume his antihypertensive regimen. Will request CT chest before his discharge as well. I have added insulin Lantus and short acting as well hemoglobin A1c 8.8 Physical Exam Narrative: Euvolemic awake and alert Currentl y on 1 to 2 L Gets shortness of marycruz th on exertion No active chest pain Pleasant and calm Nonfocal neuroexam No active wheezin g Discharge Data Studies Completed and Pending Completed Studies During Hospitalization Category Date Time Status CTA PE [CT angio chest PE protcl [id number]] Stat Cat Scan 10/07/23 10:09 Completed XR chest 1V portable [id number] Stat Exams 10/05/23 17:41 Completed CV. echo complete* [id number] Routine Ultrasound 10/06/23 08:51 Completed Pending at discharge Category Date Time Status Blood Cultures ([facility]) Routine Lab 10/05/23 23:55 Received Blood Cultures ([facility]) Routine Lab 10/06/23 00:05 Received Radiology Impressions Chest X-Ray 10/05/23 17:41 IMPRESSION: No acute findings. Laboratory Results WBC 8.77 10^3/uL (3.29-11.43) 10/08/23 04:09 RBC 5.43 10^6/uL (3.85-5.65) 10/08/23 04:09 Hgb 17.00 g/dL (11.27-16.99) H 10/08/23 04:09 Hct 52.2 % (37-53) 10/08/23 04:09 MCV 96.1 fl (82-101) 10/08/23 04:09 MCH 31.3 pg (27-33) 10/08/23 04:09 MCHC 32.6 g/dL (30-55) 10/08/23 04:09 RDW 13.6 % (12.1-15.1) 10/08/23 04:09 Plt Count 223 10^3/cmm (157-399) 10/08/23 04:09 MPV 10.0 fL (7.4-10.4) 10/08/23 04:09 Neut % (Auto) 76.8 % 10/08/23 04:09 Lymph % (Auto) 18.7 % 10/08/23 04:09 [place] % (Auto) 4.1 % 10/08/23 04:09 Eos % (Auto) 0.0 % 10/08/23 04:09 Baso % (Auto) 0.1 % 10/08/23 04:09 Neut # (Auto) 6.73 10^3/uL (1.8-7.7) 10/08/23 04:09 Lymph # (Auto) 1.6 10^3/uL (0.8-4.8) 10/08/23 04:09 [place] # (Auto) 0.4 10^3/uL (0.2-0.9) 10/08/23 04:09 Eos # (Auto) 0.0 10^3/uL (0.0-0.8) 10/08/23 04:09 Baso # (Auto) 0.0 10^3/uL (0.0-0.1) 10/08/23 04:09 Nucleated RBC % (auto) 0 % 10/08/23 04:09 Nucleated RBCs # 0.0 /100WBC 10/08/23 04:09 PT 14.00 SECONDS (12.1-14.9) 10/05/23 17:52 INR 1.04 (0.8-1.2) 10/05/23 17:52 APTT 21.2 SECONDS (23.9-36.7) L 10/05/23 17:52 D-Dimer 0.93 ug/mLFEU (0-0.59) H 10/07/23 10:48 Specimen Type Venous 10/07/23 10:48 Sample Site Not specified 10/07/23 10:48 ABG pH 7.40 (7.35-7.45) 10/05/23 21:35 ABG pCO2 47.3 mmHg (35-45) H 10/05/23 21:35 ABG pO2 74.6 mmHg (80.0-100.0) L 10/05/23 21:35 ABG HCO3 29.6 mmol/L (22-26) H 10/05/23 21:35 ABG O2 Saturation 95.2 10/05/23 21:35 ABG Base Excess 3.8 mmol/L (-2.0-2.0) H 10/05/23 21:35 Mario Test N/a 10/07/23 10:48 VBG pH 7.39 (7.32-7.42) 10/07/23 10:48 VBG pCO2 50.6 mmHg (41-51) 10/07/23 10:48 VBG pO2 55.2 mmHg (25-40) H 10/07/23 10:48 VBG HCO3 30.9 mmol/L (24-28) H 10/07/23 10:48 VBG Base Excess 4.5 mmol/L (-3.0-3.0) H 10/07/23 10:48 VBG Hematocrit 51.1 % (42-52) 10/07/23 10:48 A-a O2 Gradient 2.3 mmHg (5-10) L 10/05/23 21:35 Hematocrit 47.4 % (42-52) 10/05/23 21:35 Hgb O2 Saturation 92.5 % (95-100) L 10/05/23 21:35 Carboxyhemoglobin 2.4 %THgb (0.4-20.1) 10/05/23 21:35 Methemoglobin 0.5 % (0.4-1.5) 10/05/23 21:35 Total Hemoglobin 15.4 g/dL (14-18) 10/05/23 21:35 Sodium 138.0 mmol/L (131-143) 10/05/23 21:35 Potassium 3.9 mmol/L (3.5-5.0) 10/05/23 21:35 Glucose 253.0 mg/dL (70-115) H 10/05/23 21:35 Ionized Calcium 1.3 mmol/L (1.1-1.4) 10/05/23 21:35 O2 Delivery Device Na 10/07/23 10:48 O2 Liters/Min 2.0 % 10/05/23 21:35 Freight Handler ID Gd 10/07/23 10:48 Sodium 138 mmol/L (136-145) 10/08/23 04:09 Potassium 3.6 mmol/L (3.5-5.1) 10/08/23 04:09 Chloride 96 mmol/L (98-107) L 10/08/23 04:09 Carbon Dioxide 27 mmol/L (22-29) 10/08/23 04:09 Anion Gap 18.6 (5-19) 10/08/23 04:09 BUN 43 mg/dL (8-23) H 10/08/23 04:09 Creatinine 1.2 mg/dL (0.7-1.2) 10/08/23 04:09 GFR Calculation Not Reportable 10/08/23 04:09 Glucose 217 mg/dL (65-115) H 10/08/23 04:09 POC Glucose 202 mg/dL (70-110) H 10/08/23 06:42 Estimat Average Glucose 206 10/05/23 17:52 Hemoglobin A1c 8.8 % (4.0-6.0) H 10/05/23 17:52 Calculated Osmolality 303 mOsm/kg (285-295) H 10/08/23 04:09 Lactic Acid 1.4 mmol/L (0.5-2.2) 10/05/23 22:53 Calcium 10.2 mg/dL (8.5-10.5) 10/08/23 04:09 Phosphorus 3.1 mg/dL (2.5-4.5) 10/06/23 04:15 Magnesium 1.7 mg/dL (1.7-2.3) 10/06/23 04:15 Total Bilirubin 0.7 mg/dL (0.15-1.2) 10/05/23 17:52 AST 43 U/L (0-40) H 10/05/23 17:52 ALT 31 U/L (0-41) 10/05/23 17:52 Alkaline Phosphatase 95 U/L (40-130) 10/05/23 17:52 Troponin T Baseline 19 ng/L (0-15) H 10/05/23 17:52 Troponin T 120 Minute 20.06 ng/L (0-15) H 10/05/23 19:41 Delta Troponin T 1.06 ABS# (0-10) 10/05/23 19:41 Troponin T Hi Sens 6Hr 18.03 ng/L (0-15) H 10/05/23 22:34 Troponin T Hi Sens 6Hr Delta -0.97 ng/L (0-12) L 10/05/23 22:34 NT-Pro-B Natriuret Pep 224 pg/mL (0-450) 10/06/23 04:15 Total Protein 7.8 g/dL (6.6-8.7) 10/05/23 17:52 Albumin 3.9 g/dL (3.5-5.2) 10/05/23 17:52 Globulin 3.9 g/dL (1.3-4.6) 10/05/23 17:52 Triglycerides 116 mg/dL (0-150) 10/05/23 19:41 Cholesterol 165 mg/dL (0-200) 10/05/23 19:41 LDL Cholesterol, Calc 112 mg/dL (50-129) 10/05/23 19:41 HDL Cholesterol 30 mg/dL (60-100) L 10/05/23 19:41 LDL/HDL Ratio 3.73 RATIO (0.00-3.22) H 10/05/23 19:41 Cholesterol/HDL Ratio 5.50 mg/dL (1.0-5.00) H 10/05/23 19:41 Procalcitonin 0.31 ng/mL (0-0.5) 10/05/23 22:38 TSH 0.95 uIU/mL (0.27-4.20) 10/05/23 19:41 Influenza Type A Ag negative (Negative) 10/05/23 18:37 Influenza Type B Ag positive (Negative) H 10/05/23 18:37 SARS-CoV-2 Ag (Rapid) negative (Negative) 10/05/23 18:37 Vitals Last Vital Signs Temp 98.9 F 10/08/23 08:00 Pulse 79 10/08/23 09:14 Resp 16 10/08/23 09:06 BP 131/88 10/08/23 07:54 Pulse Ox 95 10/08/23 09:06 O2 Del Method Nasal Cannula 10/08/23 09:06 O2 Flow Rate 1.5 10/07/23 17:42 FiO2 1.5 10/08/23 09:06 Discharge Plan Discharge Patient Disposition: Home Condition: Stable Prescriptions: New albuterol sulfate 90 mcg/actuation HFA aerosol inhaler 2 inh inhalation Q8H PRN (Reason: shortness of breath or wheezing) Qty: 6.7 3RF Spiriva Respimat 1.25 mcg/actuation mist 2 inh inhalation DAILY Qty: 4 5RF Januvia 50 mg tablet 50 mg PO DAILY Qty: 90 3RF insulin glargine [Lantus Solostar U-100 Insulin] 100 unit/mL (3 mL) insulin pen 5 unit SUBCUT QPM Qty: 15 4RF methylprednisolone [Medrol (Cliff)] 4 mg tablets,dose pack See Rx Instructions .ROUTE .COMPLEX Qty: 21 0RF Rx Instructions: orally per package directions doxycycline hyclate 100 mg tablet 100 mg PO BID 3 Days Qty: 6 0RF oseltamivir [Tamiflu] 75 mg capsule 75 mg PO BID 5 Days Qty: 10 0RF insulin lispro [Humalog KwikPen Insulin] 100 unit/mL insulin pen See Rx Instructions .ROUTE .COMPLEX Qty: 15 4RF Rx Instructions: Blood sugar 150-199 please take 3 units Blood sugar 200 -249 please take 5 units Blood sugar 250-299 please take 7 units Blood sugar 300-349 please take 10 units 350-399 please take 12 units Above 400 take 16 units and notify your doctor Continued clopidogrel 75 mg tablet 75 mg PO DAILY nitroglycerin [Nitrostat] 0.4 mg tablet, sublingual 0.4 mg SUBLINGUAL Q5M PRN (Reason: Chest Pain) cholecalciferol (vitamin D3) 125 mcg (5,000 unit) capsule 125 mcg PO DAILY (DME) wheelchair See Rx Instructions .Route .MEDSUPPLY Qty: 1 0RF Rx Instructions: As directed for ambulation mupirocin 2 % ointment 1 applic topical BID Qty: 22 3RF gabapentin 300 mg capsule 600 mg PO TID Qty: 180 5RF promethazine-DM 6.25-15 mg/5 mL syrup See Rx Instructions .ROUTE .COMPLEX Qty: 200 3RF Dose Instruction: TAKE ONE TEASPOONFUL (5 ML'S) BY MOUTH EVERY 6 HOURS NEEDED FOR COUGH Rx Instructions: TAKE ONE TEASPOONFUL (5 ML'S) BY MOUTH EVERY 6 HOURS NEEDED FOR COUGH tramadol 50 mg tablet 50 mg PO Q8H PRN (Reason: Pain) Qty: 60 5RF hydrocodone-acetaminophen 5-325 mg tablet 1 tab PO TID 30 Days Qty: 90 0RF lisinopril 5 mg tablet 5 mg PO DAILY PRN (Reason: Blood Pressure) Rx Instructions: TAKE IF BLOOD PRESSURE IS OVER 120/70 aspirin 81 mg Tablet,Delayed Release (Dr/Ec) 81 mg PO DAILY Qty: 90 0RF sertraline 50 mg tablet 50 mg PO BEDTIME chlorthalidone 25 mg Tablet 25 mg PO DAILY Qty: 30 0RF meclizine 25 mg tablet 25 mg PO BID PRN (Reason: dizziness) Qty: 30 0RF zinc acetate 50 mg (zinc) Capsule 50 mg PO DAILY acetaminophen 500 mg Tablet 500 - 1,000 mg PO Q6H PRN (Reason: Pain) isosorbide mononitrate 60 mg tablet extended release 24 hr 60 mg PO BID tamsulosin 0.4 mg capsule 0.4 mg PO BEDTIME ropinirole 2 mg tablet 2 mg PO BEDTIME pantoprazole 40 mg tablet,delayed release (DR/EC) 40 mg PO DAILY diltiazem HCl 120 mg capsule,extended release 24hr 120 mg PO DAILY Antacid 200-200-20 mg/5 mL Suspension 10 - 20 ml PO QID PRN (Reason: Acid Reflux) Rx Instructions: administer between meals and at bedtime mirtazapine 7.5 mg tablet 7.5 mg PO BEDTIME Milk of Magnesia 400 mg/5 mL Suspension 30 ml PO DAILY PRN (Reason: Constipation) Mylanta 200-200-20 mg/5 mL Suspension 30 ml PO QID PRN (Reason: Acid Reflux) Rx Instructions: administer between meals and at bedtime Symbicort 160-4.5 mcg/actuation HFA aerosol inhaler 2 puff INHALATION BID 360 Days Qty: 10.2 3RF Changed potassium chloride 20 mEq tablet extended release 20 meq PO DAILY Qty: 180 1RF Discontinued hydroxyzine HCl 25 mg tablet 25 mg PO BID PRN (Reason: anxiety or panic attack) Qty: 20 0RF Discharge Orders: Discharge Order (Routine); Ordered 10/08/23 Ordered By: Love Toscano Other Ambulatory Orders: DME: Oxygen (Order) Location: None Selected Ordered By: Love Toscano Referrals: [facility] [place]Outside] Joe Bustillos DO [Primary Care Provider] - 10/13/23 9:20 am Patient Instructions: Doxycycline (By mouth) (Acticlate, Adoxa, Avidoxy, Monodox, Doryx), Albuterol (By breathing), Methylprednisolone (By mouth) (Medrol, Medrol Dosepak), Oseltamivir (By mouth) (Tamiflu), Insulin Lispro Protamine/Insulin Lispro (By injection) (Humalog Mix..., Tiotropium (By breathing) (Spiriva, Spiriva Respimat), Sitagliptin (By mouth) (Januvia), Insulin Glargine (By injection) (Lantus, Lantus SoloStar, Toujeo, Semglee), Acute Respiratory Failure (GEN), COPD Stoplight, Opioid Safety Activity Restrictions/Additional Instructions: You will use moderate dose sliding scale for your high blood sugar Blood sugar 150-199 please take 3 units Blood sugar 200 -249 please take 5 units Blood sugar 250-299 please take 7 units Blood sugar 300-349 please take 10 units 350-399 please take 12 units Above 400 take 16 units and notify your doctor Discharge Attestations Time Spent in Discharge Care*: greater than 30 min Quality Metrics Clinical Quality Measures [ No reported AMI, CVA or VTE this stay] Coding Level of Care Code Acute Code for Chg Fwd Diagnoses Anxiety F41.9 Essential hypertension I10 Diabetes E11.9 BPH (benign prostatic hyperplasia) N40.0 Influenza B J10.1 Weakness R53.1 COPD exacerbation J44.1 Hypoxemia R09.02
[2023-10-08] MEDS: labetalol 200 mg Tablet PO (10:05)
--- NOTE | 2023-10-08 10:50 | PC.NURSE ---
report called to assisted living [facility]
[2023-10-08 11:43] LABS: Glucose Point of Care 236 mg/dL (70-110)
--- NOTE | 2023-10-08 13:54 | PC.NURSE ---
report called [facility]
== END 2023-10-08 12:50 | disposition home or self-care (01) | DRG 193 ==
LOC: ER 20:48 → ICU 10-06 03:01 → CSU 10-07 04:57
PROVIDERS: Admitting Provider Family Medicine; Emergency Provider Internal Medicine; PCP Family Medicine; Visit Provider Internal Medicine
DX: J10.1 Influenza due to other identified influenza virus with other respiratory manifestations (principal); J96.01 Acute respiratory failure with hypoxia; J44.1 Chronic obstructive pulmonary disease with (acute) exacerbation; F17.210 Nicotine dependence, cigarettes, uncomplicated; I10 Essential (primary) hypertension; E78.5 Hyperlipidemia, unspecified; F32.A Depression, unspecified; N40.0 Benign prostatic hyperplasia without lower urinary tract symptoms; K21.9 Gastro-esophageal reflux disease without esophagitis; E11.42 Type 2 diabetes mellitus with diabetic polyneuropathy; I25.10 Atherosclerotic heart disease of native coronary artery without angina pectoris; Z95.5 Presence of coronary angioplasty implant and graft; I71.40 Abdominal aortic aneurysm, without rupture, unspecified; F41.9 Anxiety disorder, unspecified; Z79.82 Long term (current) use of aspirin; Z79.01 Long term (current) use of anticoagulants; Z79.02 Long term (current) use of antithrombotics/antiplatelets; A52.8 Late syphilis, latent
CPT/HCPCS: 36415; 36416; 36600; 71045; 71275; 80048; 80051; 80053; 80061; 82330; 82803; 82805; 82962; 83036; 83605; 83735; 83880; 84100; 84145; 84443; 84484; 85025; 85378; 85610; 85730; 87040; 87426; 87804; 93005; 93306; 94640; 94664; 94760; 96372; 96376; C9113; J1650; J1815; J2920; J2930; J3490; J7613; J7626; Q9967

== ENCOUNTER → 2023-11-16 09:32 | Outpatient (BNVA) | payer MEDICARE, MEDICAID, SELFPAY | PROVIDERS: PCP Family Medicine; Visit Provider Family Medicine | DX: E11.9 Type 2 diabetes mellitus without complications (principal) | CPT/HCPCS: 83036 ==

== ENCOUNTER 2024-01-08 23:07 | Emergency (ER) | payer MEDICARE, MEDICAID, SELFPAY ==
[2024-01-08 23:08] VITALS: BP 121/69; PULSE 63; RESP 10; TEMP 36.9; O2SAT 91; BMI 31.2
--- NOTE | 2024-01-08 23:10 | XRR_ITS ---
PROCEDURE INFORMATION: Exam: XR Chest Exam date and time: 01/08/2024 11:15 PM Age: 78 years old Clinical indication: Angina pectoris; Patient HX: Chest pain; Weakness TECHNIQUE: Imaging protocol: Radiologic exam of the chest. Views: 1 view. COMPARISON: CT angio chest PE protcl [id number] 10/07/2023 11:35 AM FINDINGS: Lungs: Left basilar opacities. The lungs are otherwise clear. Pleural spaces: No pleural effusion or pneumothorax. Heart/Mediastinum: The heart is magnified. Cardiomediastinal silhouette is otherwise within normal limits. Bones/joints: No acute osseous abnormalities are seen. XR/XR chest 1V portable [id number] IMPRESSION: Left basilar opacities. Atelectasis versus consolidation.
--- NOTE | 2024-01-08 23:11 | ECG_ITS ---
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 Measurements Intervals [place] Rate: 65 P: -72 AL: 142 QRS: 38 QRSD: 129 T: 60 QT: 430 QTc: 450 Interpretive Statements ECTOPIC ATRIAL RHYTHM MODERATE INTRAVENTRICULAR CONDUCTION DELAY [110+ ms QRS DURATION] ABNORMAL RHYTHM ECG INTERPRETATION BASED ON A DEFAULT AGE OF 40 YEARS Compared to ECG 10/08/2023 07:41:19 Ectopic atrial rhythm now present Intraventricular conduction delay now present Sinus rhythm no longer present Electronically Signed On 01-09-2024 19:29:18 CDT by Uma Patel M.D. [email or web address]
[2024-01-08 23:47] VITALS: BP 121/69; PULSE 63; RESP 10; O2SAT 90
[2024-01-08 23:54] LABS: Basophils # 0.1 10^3/uL (0.0-0.1); Basophils % 0.6 %; Eosinophils # 0.3 10^3/uL (0.0-0.8); Eosinophils % 2.9 %; Hematocrit 43.3 % (37-53); Lymphocytes # 2.4 10^3/uL (0.8-4.8); Lymphocytes % 21.9 %; Mean Corpuscular Hemoglobin 30.1 pg (27-33); Mean Corpuscular Volume 91.2 fl (82-101); Mean Platelet Volume 10.5 fL (7.4-10.4); Monocytes # 0.9 10^3/uL (0.2-0.9); Monocytes % 7.9 %; Neutrophils # 7.22 10^3/uL (1.8-7.7); Neutrophils % 66.4 %; Nucleated Red Blood Cells % 0 %; Platelet Count 209 10^3/cmm (157-399); Red Blood Count 4.75 10^6/uL (3.85-5.65); Red Cell Distribution Width 13.3 % (12.1-15.1); White Blood Count 10.86 10^3/uL (3.29-11.43)
[2024-01-09 00:10] LABS: Troponin(5th) Baseline 20 ng/L (0-15)
[2024-01-09 00:12] LABS: Alanine Aminotransferase 15 U/L (0-41); Albumin Level 3.8 g/dL (3.5-5.2); Alkaline Phosphatase 82 U/L (40-130); Aspartate Amino Transferase 22 U/L (0-40); Blood Urea Nitrogen 21 mg/dL (8-23); Calcium 9.6 mg/dL (8.5-10.5); Carbon Dioxide 29 mmol/L (22-29); Chloride 99 mmol/L (98-107); Creatinine Clr Calc Pharmacy 71.5183; Globulin 3.1 g/dL (1.3-4.6); Glucose 148 mg/dL (65-115); Magnesium 1.8 mg/dL (1.7-2.3); Osmolality Calculated 294 mOsm/kg (285-295); Sodium 139 mmol/L (136-145); Total Bilirubin 0.5 mg/dL (0.15-1.2); Total Protein 6.9 g/dL (6.6-8.7)
--- NOTE | 2024-01-09 00:14 | ED_ITS ---
HPI - Chest Pain 2 General: Chief Complaint: Chest Pain Stated Complaint: CP/WEAKNESS Time Seen by Provider: 01/08/24 23:10 History of Present Illness: Patient presents to the ER after having chest pain radiating down his arm after he ate dinner tonight about 6:00. Patient said he tried to take some Tums to make it go away as this has helped in the past when he had this. It did not help this time. Patient tried to go lay down and he could not get comfortable. The pain kept worsening. Patient eventually called 911 when ambulance came there they gave him nitro, aspirin, and fentanyl and the pain went away by the time he arrived to the ER. Patient says he has a cardiac history with approximately 8 stents. He does see a coin rolling machine operator through the [facility] system. He could not remember his name. Records show he has seen Dr. Jernigan in the past with his last visit being 12/16/2022 Review of Systems 2 General: Reports: 10 or more systems reviewed and unremarkable except in HPI and below PFSH ED 2 PFSH: Medical History Diabetes Acute hypoxic respiratory failure Influenza A Hypoxemia COPD exacerbation Weakness Myalgia HTN (hypertension) Late latent syphilis PSA elevation Orthostatic dizziness AAA (abdominal aortic aneurysm) Falls Hyperlipidemia Depression Peripheral neuropathy BPH (benign prostatic hyperplasia) GERD (gastroesophageal reflux disease) Tobacco abuse ASHD (arteriosclerotic heart disease) CVA (cerebral vascular accident) COPD (chronic obstructive pulmonary disease) Surgical History History of appendectomy S/P cataract extraction S/P tonsillectomy Family History Father Cancer Mother Diabetes Social History Smoking and tobacco/nicotine status: current every day tobacco/nicotine user cigarettes Packs smoked per day: 0.25 Alcohol intake: former Substance/Drug Use: former Adopted: No Caregiver/support person: No Lives independently: Yes Household members: none Housing: Apartment Marital status: Current occupational status: disabled Pets and animals: No Current gender identity: Male Physical Exam 2 Const: COMMON NORMALS: no acute distress, average body habitus, patient oriented x3, no limitations, healthy appearing, alert and well nourished HENMT: COMMON NORMALS: normocephalic, atraumatic, hearing grossly normal bilaterally, external ears normal, Normal external nose present, moist oral mucous membranes and oropharynx normal HEAD & SCALP: normocephalic and atraumatic NOSE: Normal external nose present EXTERNAL EAR: Yes external ears normal Neck/C-Spine: COMMON NORMALS: no JVD Chest: COMMONS NORMALS: normal inspection of the chest and normal palpation of entire chest wall Resp: COMMON NORMALS: normal respiratory effort, No retractions, No use of accessory muscles and clear to auscultation bilaterally AUSCULTATION: clear to auscultation bilaterally Cardio: COMMON NORMALS: no JVD, regular rate, regular rhythm, S1 normal heart sound present, S2 normal heart sound present, No gallops present (Cardio), No clicks present (Cardio), No murmurs present (Cardio) and No rub (Cardio) R ATE: regular rate RHYTHM: regular rhythm HEART SOUNDS: S1 normal heart sound present and S2 normal heart sound present GI: COMMON NORMALS: Normal to inspection, nondistended, normoactive bowel sounds present, Soft to palpation, non-tender, No hepatosplenomegaly present and no masses PALPATION: Yes Soft to palpation and Yes No hepatosplenomegaly present Neuro: COMMON NORMALS: patient oriented x3 SENSORIUM/ORIENTATION: Yes alert Course 2 Vital Signs: Vital signs: Vital Signs Temperature 98.4 F 01/08/24 23:08 Pulse Rate 59 L 01/09/24 01:57 Respiratory Rate 10 L 01/09/24 01:57 Blood Pressure 121/69 01/08/24 23:47 Pulse Oximetry 92 01/09/24 01:57 Oxygen Delivery Me thod Nasal Cannula 01/09/24 01:57 Oxygen Flow Rate 2 01/09/24 01:57 MDM - Chest Pain Medical Decision Making Patient was worked up in a standard cardiac fashion with serial EKGs, serial lab tests and chest x-ray, patient's white count was normal at 10.8, chest x-ray showed left basilar opacities consistent with atelectasis versus consolidation, serial troponins were benign. Patient did not have any chest pain during his stay in the ER. Patient be discharged home to follow-up with his primary care physician. Differential Diagnosis Unlikely acute massive pulmonary embolism, acute respiratory failure, acute myocardial infarction, cardiac arrest or sudden cardiac Lab Data I reviewed the patient's lab results. 01/08/24 23:45 01/08/24 23:45 Radiology Impressions Chest X-Ray 01/08/24 23:10 IMPRESSION: Left basilar opacities. Atelectasis versus consolidation. Laboratory Results WBC 10.86 10^3/uL (3.29-11.43) 01/08/24 23:45 RBC 4.75 10^6/uL (3.85-5.65) 01/08/24 23:45 Hgb 14.30 g/dL (11.27-16.99) 01/08/24 23:45 Hct 43.3 % (37-53) 01/08/24 23:45 MCV 91.2 fl (82-101) 01/08/24 23:45 MCH 30.1 pg (27-33) 01/08/24 23:45 MCHC 33.0 g/dL (30-55) 01/08/24 23:45 RDW 13.3 % (12.1-15.1) 01/08/24 23:45 Plt Count 209 10^3/cmm (157-399) 01/08/24 23:45 MPV 10.5 fL (7.4-10.4) H 01/08/24 23:45 Neut % (Auto) 66.4 % 01/08/24 23:45 Lymph % (Auto) 21.9 % 01/08/24 23:45 [place] % (Auto) 7.9 % 01/08/24 23:45 Eos % (Auto) 2.9 % 01/08/24 23:45 Baso % (Auto) 0.6 % 01/08/24 23:45 Neut # (Auto) 7.22 10^3/uL (1.8-7.7) 01/08/24 23:45 Lymph # (Auto) 2.4 10^3/uL (0.8-4.8) 01/08/24 23:45 [place] # (Auto) 0.9 10^3/uL (0.2-0.9) 01/08/24 23:45 Eos # (Auto) 0.3 10^3/uL (0.0-0.8) 01/08/24 23:45 Baso # (Auto) 0.1 10^3/uL (0.0-0.1) 01/08/24 23:45 Nucleated RBC % (auto) 0 % 01/08/24 23:45 Nucleated RBCs # 0.0 /100WBC 01/08/24 23:45 PT 13.30 SECONDS (12.1-14.9) 01/08/24 23:45 INR 0.98 (0.8-1.2) 01/08/24 23:45 Sodium 139 mmol/L (136-145) 01/08/24 23:45 Potassium 3.4 mmol/L (3.5-5.1) L 01/08/24 23:45 Chloride 99 mmol/L (98-107) 01/08/24 23:45 Carbon Dioxide 29 mmol/L (22-29) 01/08/24 23:45 Anion Gap 14.4 (5-19) 01/08/24 23:45 BUN 21 mg/dL (8-23) 01/08/24 23:45 Creatinine 1.0 mg/dL (0.7-1.2) 01/08/24 23:45 GFR Calculation Not Reportable 01/08/24 23:45 Glucose 148 mg/dL (65-115) H 01/08/24 23:45 Calculated Osmolality 294 mOsm/kg (285-295) 01/08/24 23:45 Calcium 9.6 mg/dL (8.5-10.5) 01/08/24 23:45 Magnesium 1.8 mg/dL (1.7-2.3) 01/08/24 23:45 Total Bilirubin 0.5 mg/dL (0.15-1.2) 01/08/24 23:45 AST 22 U/L (0-40) 01/08/24 23:45 ALT 15 U/L (0-41) 01/08/24 23:45 Alkaline Phosphatase 82 U/L (40-130) 01/08/24 23:45 Troponin T Baseline 20 ng/L (0-15) H 01/08/24 23:45 Troponin T 120 Minute 19.34 ng/L (0-15) H 01/09/24 01:40 Delta Troponin T -0.66 ABS# (0-10) L 01/09/24 01:40 Total Protein 6.9 g/dL (6.6-8.7) 01/08/24 23:45 Albumin 3.8 g/dL (3.5-5.2) 01/08/24 23:45 Globulin 3.1 g/dL (1.3-4.6) 01/08/24 23:45 Urine Color Yellow (Yellow) 01/09/24 01:57 Urine Appearance Clear (CLEAR) 01/09/24 01:57 Urine pH 6.5 (5-7) 01/09/24 01:57 Ur Specific [place] 1.010 (1.005-1.030) 01/09/24 01:57 Urine Protein Neg (Negative) 01/09/24 01:57 Urine Glucose (UA) Norm (Normal) 01/09/24 01:57 Urine Ketones 1+ (Negative) H 01/09/24 01:57 Urine Blood Neg (Negative) 01/09/24 01:57 Urine Nitrate Negative (Negative) 01/09/24 01:57 Urine Bilirubin 1+ (Negative) H 01/09/24 01:57 Urine Urobilinogen 4 mg/dL (Negative) H 01/09/24 01:57 Ur Leukocyte Esterase Trace (Negative) H 01/09/24 01:57 Urine RBC 0-4 /hpf (0-2) H 01/09/24 01:57 Urine WBC 0-4 /hpf (0-5) H 01/09/24 01:57 Ur Squamous Epith Cells 0-4 /hpf (0-5) H 01/09/24 01:57 Amorphous Sediment Not Reportable 01/09/24 01:57 Urine Bacteria 3+ /hpf (NONE) H 01/09/24 01:57 All radiology interpretation(s) finalized by discharge Discharge Plan Discharge Patient Disposition: Home Clinical Impression: Chest pain Qualifiers: Chest pain type: unspecified Qualified Code(s): R07.9 - Chest pain, unspecified Condition: Stable Prescriptions: No Action clopidogrel 75 mg tablet 75 mg PO DAILY nitroglycerin [Nitrostat] 0.4 mg tablet, sublingual 0.4 mg SUBLINGUAL Q5M PRN (Reason: Chest Pain) cholecalciferol (vitamin D3) 125 mcg (5,000 unit) capsule 125 mcg PO DAILY (DME) wheelchair See Rx Instructions .Route .MEDSUPPLY Qty: 1 0RF Rx Instructions: As directed for ambulation mupirocin 2 % ointment 1 applic topical BID Qty: 22 3RF (DME) diabetic shoes See Rx Instructions .Route .MEDSUPPLY Qty: 1 0RF Rx Instructions: sized to fit, one pair, for help to prevent diabetic foot problems. hydroxyzine HCl 25 mg tablet 25 mg PO BID PRN (Reason: anxiety or panic attack) Qty: 60 1RF (DME) glucose monitor, lancets, test strips See Rx Instructions .Route .MEDSUPPLY Qty: 100 11RF Rx Instructions: check blood glucose fasting daily and prn gabapentin 300 mg capsule 600 mg PO TID Qty: 180 5RF promethazine-DM 6.25-15 mg/5 mL syrup See Rx Instructions .ROUTE .COMPLEX Qty: 200 3RF Dose Instruction: TAKE ONE TEASPOONFUL (5 ML'S) BY MOUTH EVERY 6 HOURS NEEDED FOR COUGH Rx Instructions: TAKE ONE TEASPOONFUL (5 ML'S) BY MOUTH EVERY 6 HOURS NEEDED FOR COUGH tramadol 50 mg tablet 50 mg PO Q8H PRN (Reason: Pain) Qty: 60 5RF metformin 500 mg tablet 500 mg PO BID Qty: 180 0RF hydrocodone-acetaminophen 5-325 mg tablet 1 tab PO TID 30 Days Qty: 90 0RF pregabalin [Lyrica] 75 mg capsule 75 mg PO DAILY Qty: 30 5RF lisinopril 5 mg tablet 5 mg PO DAILY PRN (Reason: Blood Pressure) Rx Instructions: TAKE IF BLOOD PRESSURE IS OVER 120/70 aspirin 81 mg Tablet,Delayed Release (Dr/Ec) 81 mg PO DAILY Qty: 90 0RF sertraline 50 mg tablet 50 mg PO BEDTIME chlorthalidone 25 mg Tablet 25 mg PO DAILY Qty: 30 0RF meclizine 25 mg tablet 25 mg PO BID PRN (Reason: dizziness) Qty: 30 0RF zinc acetate 50 mg (zinc) Capsule 50 mg PO DAILY acetaminophen 500 mg Tablet 500 - 1,000 mg PO Q6H PRN (Reason: Pain) isosorbide mononitrate 60 mg tablet extended release 24 hr 60 mg PO BID tamsulosin 0.4 mg capsule 0.4 mg PO BEDTIME ropinirole 2 mg tablet 2 mg PO BEDTIME pantoprazole 40 mg tablet,delayed release (DR/EC) 40 mg PO DAILY diltiazem HCl 120 mg capsule,extended release 24hr 120 mg PO DAILY Antacid 200-200-20 mg/5 mL Suspension 10 - 20 ml PO QID PRN (Reason: Acid Reflux) Rx Instructions: administer between meals and at bedtime mirtazapine 7.5 mg tablet 7.5 mg PO BEDTIME Milk of Magnesia 400 mg/5 mL Suspension 30 ml PO DAILY PRN (Reason: Constipation) alum-mag hydroxide-simeth 200-200-20 mg/5 mL Suspension 30 ml PO QID PRN (Reason: Acid Reflux) Rx Instructions: administer between meals and at bedtime Spiriva Respimat 1.25 mcg/actuation mist 2 inh inhalation DAILY Qty: 4 5RF albuterol sulfate 90 mcg/actuation HFA aerosol inhaler 2 inh inhalation Q8H PRN (Reason: shortness of breath or wheezing) Qty: 6.7 3RF Medrol ([place]) 4 mg tablets,dose pack See Rx Instructions .ROUTE .COMPLEX Qty: 21 0RF Rx Instructions: orally per package directions Symbicort 160-4.5 mcg/actuation HFA aerosol inhaler 2 puff INHALATION BID 360 Days Qty: 10.2 3RF potassium chloride 20 mEq tablet extended release 20 meq PO DAILY Qty: 180 1RF Januvia 50 mg tablet 50 mg PO DAILY Qty: 90 3RF Lantus Solostar U-100 Insulin 100 unit/mL (3 mL) insulin pen 5 unit SUBCUT QPM Qty: 15 4RF Humalog KwikPen Insulin 100 unit/mL insulin pen See Rx Instructions .ROUTE .COMPLEX Qty: 15 4RF Rx Instructions: Blood sugar 150-199 please take 3 units Blood sugar 200 -249 please take 5 units Blood sugar 250-299 please take 7 units Blood sugar 300-349 please take 10 units 350-399 please take 12 units Above 400 take 16 units and notify your doctor Discharge Orders: Discharge ED (Routine); Ordered 01/09/24 Ordered By: Billy Garcia Referrals: Joe Bustillos DO [Primary Care Provider] - 1 week Patient Instructions: Chest Pain (ED) Activity Restrictions/Additional Instructions: Your evaluation in ER did not allude to a cardiac cause of your chest pain. Is felt to be noncardiac in nature. Please follow-up with your family practice physician for further evaluation testing as needed. If your pain comes back or worsens please feel free to return to the ER. Coding Level of Care Code ED [employer] for Ledy Hernandez
[2024-01-09 00:21] LABS: INR 0.98 (0.8-1.2)
[2024-01-09 00:24] LABS: Anion Gap 14.4 (5-19); Potassium 3.4 mmol/L (3.5-5.1)
[2024-01-09 00:25] VITALS: PULSE 63; RESP 11; O2SAT 91
--- NOTE | 2024-01-09 01:07 | ECG_ITS ---
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 Measurements Intervals [place] Rate: 61 P: 87 [place]: 215 QRS: 40 QRSD: 131 T: 63 QT: 443 QTc: 449 Interpretive Statements SINUS RHYTHM WITH FIRST DEGREE AV BLOCK INTRAVENTRICULAR CONDUCTION DELAY [130+ ms QRS DURATION] Compared to ECG 01/08/2024 23:12:07 First degree AV block now present Ectopic atrial rhythm no longer present Electronically Signed On 01-09-2024 19:59:02 CDT by Uma Patel M.D. [id number]
[2024-01-09 01:57] VITALS: PULSE 59; RESP 10; O2SAT 92
[2024-01-09 02:05] LABS: Troponin 5 2HR 19.34 ng/L (0-15)
[2024-01-09 02:06] LABS: Troponin 5 2HR Delta -0.66 ABS# (0-10)
[2024-01-09 02:14] LABS: Add Urine Microscopic? YES; Bilirubin Urine 1+ (Negative); Blood Urine Neg (Negative); Glucose Urine UA Norm (Normal); Ketones Urine 1+ (Negative); Leukocyte Esterase Urine Trace (Negative); Nitrate Urine Negative (Negative); Protein Urine Neg (Negative); RBC Urine 0-4 /hpf (0-2); Squamous Epithelial Cell Urine 0-4 /hpf (0-5); Urine Appearance Clear (CLEAR); Urine Color Yellow (Yellow); Urobilinogen Urine 4 mg/dL (Negative); WBC Urine 0-4 /hpf (0-5); pH Urine 6.5 (5-7)
[2024-01-09 02:15] LABS: Bacteria Urine 3+ /hpf
[2024-01-09 02:32] VITALS: BP 120/66; PULSE 64; RESP 15; O2SAT 92
== END 2024-01-09 02:31 | disposition home or self-care (01) ==
PROVIDERS: Emergency Provider Emergency Medicine; PCP Family Medicine
DX: R07.9 Chest pain, unspecified (principal); Z79.02 Long term (current) use of antithrombotics/antiplatelets; Z79.82 Long term (current) use of aspirin; Z79.84 Long term (current) use of oral hypoglycemic drugs; Z79.4 Long term (current) use of insulin; F17.210 Nicotine dependence, cigarettes, uncomplicated; E11.42 Type 2 diabetes mellitus with diabetic polyneuropathy; J44.9 Chronic obstructive pulmonary disease, unspecified; I10 Essential (primary) hypertension; E78.5 Hyperlipidemia, unspecified; Z86.73 Personal history of transient ischemic attack (TIA), and cerebral infarction without residual deficits
CPT/HCPCS: 36415; 71045; 80053; 81001; 83735; 84484; 85025; 85610; 93005; 99285

== ENCOUNTER → 2024-06-27 11:18 | Outpatient (BNVA) | payer MEDICARE, MEDICAID, SELFPAY | PROVIDERS: PCP Family Medicine; Visit Provider Family Medicine | DX: Z23 Encounter for immunization (principal); F41.9 Anxiety disorder, unspecified; E11.9 Type 2 diabetes mellitus without complications; R26.89 Other abnormalities of gait and mobility; M79.2 Neuralgia and neuritis, unspecified; G25.81 Restless legs syndrome; L82.1 Other seborrheic keratosis | CPT/HCPCS: 80053; 80061; 83036 ==

== ENCOUNTER 2024-10-14 15:25 | Emergency (ER) | payer MEDICARE, MEDICAID, SELFPAY ==
[2024-10-14] VITALS (10 sets, daily range): BP systolic 122–178; BP diastolic 58–104; PULSE 67–97; RESP 16–23; TEMP 37.6; O2SAT 88–95; BMI 30.9
--- NOTE | 2024-10-14 15:32 | XRR_ITS ---
PROCEDURE INFORMATION: Exam: XR Chest Exam date and time: 10/14/2024 4:00 PM Age: 79 years old Clinical indication: Chest pressure; Chest pain; SOB TECHNIQUE: Imaging protocol: Radiologic exam of the chest. Views: 1 view. COMPARISON: CR XR chest 1V portable [id number] 01/08/2024 11:15 PM FINDINGS: Lungs: Unremarkable. No consolidation. Pleural spaces: Unremarkable. No pleural effusion. No pneumothorax. Heart/Mediastinum: Stable mild cardiomegaly compared to 01/08/2024. Uncoiled ectatic thoracic aorta is similar to prior study. Bones/joints: Mild multilevel spondylosis. Moderately advanced left glenohumeral arthrosis. XR/XR chest 1V portable [id number] IMPRESSION: Stable mild cardiomegaly . No significant interval radiographic change from 01/08/2024.
--- NOTE | 2024-10-14 15:32 | ECG_ITS ---
[facility] Test Date: 2024-10-14 Pat Name: Jose Perkins Department: Room: Gender: Male Product Owner: : 1945 Requested By: Quincy Smith Order Number: [id number] Asael MD: Dalton Stephenson M.D. Measurements Intervals [place] Rate: 89 P: 91 [place]: 182 QRS: 78 QRSD: 121 T: 66 QT: 364 QTc: 443 Interpretive Statements SINUS RHYTHM POSSIBLE RIGHT VENTRICULAR CONDUCTION DELAY [RSR (QR) IN V1/V2] Compared to ECG 01/09/2024 01:07:32 First degree AV block no longer present Intraventricular conduction delay no longer present Electronically Signed On 10-15-2024 13:18:51 [employer] by Dalton Stephenson M.D. [email or web address]
--- NOTE | 2024-10-14 15:47 | W.ED.CHESTPA ---
Documented by User: Quincy Smith MD 10/14/24 17:52 HPI - Chest Pain General: Chief Complaint: Chest Pain Stated Complaint: chest pain Time Seen by Provider: 10/14/24 15:32 Source: patient and EMS Mode of arrival: EMS Limitations: no limitations History of Present Illness: 79-year-old male with a history of coronary disease along with CHF COPD is here from retirement with chest pain chest pain started roughly 2 hours ago he states been having some shortness of breath and low-grade fevers as well. He states his pain is sharp in nature initially was an 8 out of 10 states he is currently pain-free after meds with EMS was given nitro aspirin. Denies any vomiting or diarrhea denies any abdominal pain. He states he is also had a dry cough as well. Associated symptoms: Reports dyspnea; Deny abdominal pain, nausea or vomiting Related Data Home Medications Medication Instructions Recorded Confirmed clopidogrel 75 mg tablet 75 mg PO DAILY 12/02/19 10/14/24 nitroglycerin 0.4 mg sublingual 0.4 mg sublingual Q5M PRN Chest 12/02/19 10/14/24 tablet (Nitrostat) Pain cholecalciferol (vitamin D3) 125 125 mcg PO DAILY 04/11/22 10/14/24 mcg (5,000 unit) capsule sertraline 50 mg tablet 50 mg PO BEDTIME 04/24/22 10/14/24 lisinopril 5 mg tablet 5 mg PO DAILY PRN Blood Pressure 05/20/22 10/14/24 acetaminophen 500 mg tablet 500 - 1,000 mg PO Q6H PRN Pain 10/06/23 10/14/24 aluminum-mag hydroxide-simethicone 30 ml PO QID PRN Acid Reflux 10/06/23 10/14/24 200 mg-200 mg-20 mg/5 mL oral susp aluminum-mag hydroxide-simethicone 10 - 20 ml PO QID PRN Acid Reflux 10/06/23 10/14/24 200 mg-200 mg-20 mg/5 mL oral susp (Antacid) diltiazem HCl 120 mg 120 mg PO DAILY 10/06/23 10/14/24 capsule,extended release 24 hr isosorbide mononitrate 60 mg 60 mg PO BID 10/06/23 10/14/24 tablet,extended release 24 hr magnesium hydroxide 400 mg/5 mL 30 ml PO DAILY PRN Constipation 10/06/23 10/14/24 oral suspension (Milk of Magnesia) mirtazapine 7.5 mg tablet 7.5 mg PO BEDTIME 10/06/23 10/14/24 pantoprazole 40 mg tablet,delayed 40 mg PO DAILY 10/06/23 10/14/24 release ropinirole 2 mg tablet 2 mg PO BEDTIME 10/06/23 10/14/24 tamsulosin 0.4 mg capsule 0.4 mg PO BEDTIME 10/06/23 10/14/24 zinc acetate 50 mg (zinc) capsule 50 mg PO DAILY 10/06/23 10/14/24 Previous Rx's Medication Instructions Recorded aspirin 81 mg tablet,delayed 81 mg PO DAILY #90 tabs 02/05/22 release chlorthalidone 25 mg tablet 25 mg PO DAILY #30 tabs 05/01/22 meclizine 25 mg tablet 25 mg PO BID PRN dizziness #30 tabs 05/01/22 albuterol sulfate 90 mcg/actuation 2 inh inhalation Q8H PRN shortness 10/07/23 aerosol inhaler of breath or wheezing #6.7 grams budesonide-formoterol HFA 160 2 puff inhalation BID 12 months 10/07/23 mcg-4.5 mcg/actuation aerosol #10.2 grams inhaler (Symbicort) insulin glargine 100 unit/mL (3 5 unit (0.05 mL) SUBCUT QPM #15 mL 10/07/23 mL) subcutaneous pen (Lantus Solostar U-100 Insulin) insulin lispro 100 unit/mL See Rx Instructions .Route 10/07/23 subcutaneous pen (Humalog KwikPen .COMPLEX #15 mL (U-100) Insulin) potassium chloride 20 mEq 20 meq PO DAILY hypokalemia #180 10/07/23 tablet,extended release tabs sitagliptin phosphate 50 mg tablet 50 mg PO DAILY #90 tabs 10/07/23 (Januvia) tiotropium bromide 1.25 2 inh inhalation DAILY #4 grams 10/07/23 mcg/actuation mist for inhalation (Spiriva Respimat) promethazine-DM 6.25 mg-15 mg/5 mL See Rx Instructions .Route 11/10/23 oral syrup .COMPLEX #200 mL tramadol 50 mg tablet 50 mg PO Q8H PRN Pain #60 tabs 11/26/23 metformin 500 mg tablet 500 mg PO BID #180 tabs 12/04/23 gabapentin 300 mg capsule 300 mg PO TID neuropathic pain 04/11/24 #180 caps mupirocin 2 % topical ointment 1 applic topical BID skin 04/11/24 infection #22 grams pregabalin 75 mg capsule (Lyrica) 75 mg PO BID neuropathy #60 caps 04/29/24 hydroxyzine HCl 25 mg tablet 25 mg PO BID anxiety or panic 06/27/24 attack #60 tabs hydrocodone 5 mg-acetaminophen 325 1 tab PO TID pain/muscle tension 1 09/13/24 mg tablet month #90 tabs oseltamivir 75 mg capsule (Tamiflu) 75 mg PO BID 5 days #10 caps 10/14/24 prednisone 50 mg tablet 50 mg PO DAILY #5 tabs 10/14/24 Allergies Allergy/AdvReac Type Severity Reaction Status Date / Time Penicillins Allergy Unknown Unknown Verified 08/30/24 11:43 tirofiban Allergy Unknown Unknown Verified 08/30/24 11:43 [From Aggrastat Concentrate] shellfish derived Allergy ADR-Vomitin Verified 08/30/24 11:43 g lorazepam [From Ativan] AdvReac Severe ADR-Halluci Verified 08/30/24 11:43 kayla Review of Systems Const: Reports: chills and body aches; Denies: change in appetite Eyes: Denies: blurry vision or eye discomfort ENMT: Denies: throat pain or dental pain Card: Reports: chest pain Resp: Reports: dyspnea and non-productive cough GI: Denies: abdominal pain, nausea, vomiting or diarrhea Musc: Denies: neck pain or back pain Skin/Breast: Denies: rash Neuro: Denies: headache(s) PFSH ED PFSH: Medical History Diabetes Acute hypoxic respiratory failure Influenza A Hypoxemia COPD exacerbation Weakness Myalgia HTN (hypertension) Late latent syphilis PSA elevation Orthostatic dizziness AAA (abdominal aortic aneurysm) Falls Hyperlipidemia Depression Peripheral neuropathy BPH (benign prostatic hyperplasia) GERD (gastroesophageal reflux disease) Tobacco abuse ASHD (arteriosclerotic heart disease) CVA (cerebral vascular accident) COPD (chronic obstructive pulmonary disease) Surgical History History of appendectomy S/P cataract extraction S/P tonsillectomy Family History Father Cancer Mother Diabetes Social History Smoking and tobacco/nicotine status: current every day tobacco/nicotine user cigarettes Packs smoked per day: 0.25 Alcohol intake: former Substance/Drug Use: former Adopted: No Caregiver/support person: No Lives independently: Yes Household members: none Housing: Apartment Marital status: Current occupational status: disabled Pets and animals: No Current gender identity: Male Physical Exam Const: COMMON NORMALS: patient oriented x3 HENMT: COMMON NORMALS: normocephalic and atraumatic HEAD & SCALP: normocephalic and atraumatic Eye: COMMON NORMALS: conjunctivae normal CONJUNCTIVA: Yes conjunctivae normal Neck/C-Spine: COMMON NORMALS: full ROM and supple Chest: COMMONS NORMALS: normal inspection of the chest Resp: COMMON NORMALS: No retractions, No use of accessory muscles and clear to auscultation bilaterally AUSCULTATION: clear to auscultation bilaterally and wheezes Cardio: COMMON NORMALS: regular rate, regular rhythm and No murmurs present (Cardio) RATE: regular rate RHYTHM: regular rhythm GI: COMMON NORMALS: Normal to inspection, nondistended, normoactive bowel sounds present, Soft to palpation, non-tender and no masses PALPATION: Yes Soft to palpation Extremity: COMMON NORMALS: normal to inspection and full ROM Neuro: COMMON NORMALS: patient oriented x3, moves all extremities and no focal motor deficits Psych: COMMON NORMALS: mental status grossly normal, Normal thought process present and cooperative THOUGHT PROCESS: Normal thought process present Skin: COMMON NORMALS: no rashes or lesions noted and no wounds GENERAL SKIN EXAM: no rashes or lesions noted Course Vital Signs: Vital signs: Vital Signs Temperature 99.6 F 10/14/24 15:26 Pulse Rate 79 10/14/24 17:57 Respiratory Rate 18 10/14/24 17:57 Blood Pressure 139/67 10/14/24 17:57 Pulse Oximetry 88 L 10/14/24 18:28 Oxygen Delivery Me thod Room Air 10/14/24 17:57 Oxygen Flow Rate 3 10/14/24 18:28 MDM - Chest Pain Medical Decision Making Patient presents here with chest pain, cough fever he is flu positive is likely causing his symptoms. Patient is pending a 2-hour troponin. I did speak to patient at length he is wanting to go back to the assisted living. Will do a home oxygen eval and send back on home oxygen if 2-hour troponin is negative care turned over to Dr. Garcia Medical Records I reviewed the patient's medical records. Lab Data I reviewed the patient's lab results. 10/14/24 16:21 10/14/24 16:21 Radiology Impressions Chest X-Ray 10/14/24 15:32 IMPRESSION: Stable mild cardiomegaly . No significant interval radiographic change from 01/08/2024. Laboratory Results WBC 10.50 10^3/uL (3.29-11.43) 10/14/24 16:21 RBC 5.45 10^6/uL (3.85-5.65) 10/14/24 16:21 Hgb 14.40 g/dL (11.27-16.99) 10/14/24 16:21 Hct 45.4 % (37-53) 10/14/24 16:21 MCV 83.3 fl (82-101) 10/14/24 16:21 MCH 26.4 pg (27-33) L 10/14/24 16:21 MCHC 31.7 g/dL (30-55) 10/14/24 16:21 RDW 17.5 % (12.1-15.1) H 10/14/24 16:21 Plt Count 211 10^3/cmm (157-399) 10/14/24 16:21 MPV 9.9 fL (7.4-10.4) 10/14/24 16:21 Neut % (Auto) 83.1 % 10/14/24 16:21 Lymph % (Auto) 9.9 % 10/14/24 16:21 [place] % (Auto) 5.1 % 10/14/24 16:21 Eos % (Auto) 0.9 % 10/14/24 16:21 Baso % (Auto) 0.6 % 10/14/24 16:21 Neut # (Auto) 8.73 10^3/uL (1.8-7.7) H 10/14/24 16:21 Lymph # (Auto) 1.0 10^3/uL (0.8-4.8) 10/14/24 16:21 [place] # (Auto) 0.5 10^3/uL (0.2-0.9) 10/14/24 16:21 Eos # (Auto) 0.1 10^3/uL (0.0-0.8) 10/14/24 16:21 Baso # (Auto) 0.1 10^3/uL (0.0-0.1) 10/14/24 16:21 Nucleated RBC % (auto) 0 % 10/14/24 16:21 Nucleated RBCs # 0.0 /100WBC 10/14/24 16:21 PT 13.40 SECONDS (12.1-14.9) 10/14/24 16:21 INR 0.96 (0.8-1.2) 10/14/24 16:21 Sodium 137 mmol/L (136-145) 10/14/24 16:21 Potassium 3.9 mmol/L (3.5-5.1) 10/14/24 16:21 Chloride 95 mmol/L (98-107) L 10/14/24 16:21 Carbon Dioxide 27 mmol/L (22-29) 10/14/24 16:21 Anion Gap 18.9 (5-19) 10/14/24 16:21 BUN 15 mg/dL (8-23) 10/14/24 16:21 Creatinine 1.0 mg/dL (0.7-1.2) 10/14/24 16:21 GFR Calculation Not Reportable 10/14/24 16:21 Glucose 129 mg/dL (65-115) H 10/14/24 16:21 Calculated Osmolality 287 mOsm/kg (285-295) 10/14/24 16:21 Lactic Acid 2.7 mmol/L (0.5-2.2) H 10/14/24 16:21 Calcium 9.5 mg/dL (8.5-10.5) 10/14/24 16:21 Total Bilirubin 0.7 mg/dL (0.15-1.2) 10/14/24 16:21 AST 37 U/L (0-40) 10/14/24 16:21 ALT 25 U/L (0-41) 10/14/24 16:21 Alkaline Phosphatase 94 U/L (40-130) 10/14/24 16:21 Troponin T Baseline 23 ng/L (0-15) H 10/14/24 16:21 Total Protein 7.5 g/dL (6.6-8.7) 10/14/24 16:21 Albumin 4.3 g/dL (3.5-5.2) 10/14/24 16:21 Globulin 3.2 g/dL (1.3-4.6) 10/14/24 16:21 Lipase 36 U/L (13-60) 10/14/24 16:21 Coronavirus (PCR) Negative (Negative) 10/14/24 16:17 Influenza A (PCR) Positive (Negative) 10/14/24 16:17 Influenza Type B (PCR) Negative (Negative) 10/14/24 16:17 RSV (PCR) Negative (Negative) 10/14/24 16:17 All radiology interpretation(s) finalized by discharge EKG Data EKG 1: I personally reviewed and interpreted this EKG as follows: EKG interpretation date: 10/14/24 EKG interpretation time: 15:29 Interpretation: nsr hr [address] elevation qrs 121 qtc 410 EKG 2: I personally reviewed and interpreted this EKG as follows: EKG interpretation date: 10/14/24 EKG interpretation time: 17:48 Interpretation: nsr hr [address] elevation qrs 121 qtc 415 Discharge Plan Discharge Patient Disposition: Home Clinical Impression: Chest pain, Influenza A Condition: Stable Prescriptions: New oseltamivir [Tamiflu] 75 mg capsule 75 mg PO BID 5 Days Qty: 10 0RF prednisone 50 mg tablet 50 mg PO DAILY Qty: 5 0RF No Action clopidogrel 75 mg tablet 75 mg PO DAILY nitroglycerin [Nitrostat] 0.4 mg tablet, sublingual 0.4 mg SUBLINGUAL Q5M PRN (Reason: Chest Pain) cholecalciferol (vitamin D3) 125 mcg (5,000 unit) capsule 125 mcg PO DAILY hydroxyzine HCl 25 mg tablet 25 mg PO BID Qty: 60 1RF Rx Instructions: Keep morning dose PRN. gabapentin 300 mg capsule 300 mg PO TID Qty: 180 5RF mupirocin 2 % ointment 1 applic topical BID Qty: 22 1RF promethazine-DM 6.25-15 mg/5 mL syrup See Rx Instructions .ROUTE .COMPLEX Qty: 200 3RF Dose Instruction: TAKE ONE TEASPOONFUL (5 ML'S) BY MOUTH EVERY 6 HOURS NEEDED FOR COUGH Rx Instructions: TAKE ONE TEASPOONFUL (5 ML'S) BY MOUTH EVERY 6 HOURS NEEDED FOR COUGH tramadol 50 mg tablet 50 mg PO Q8H PRN (Reason: Pain) Qty: 60 5RF metformin 500 mg tablet 500 mg PO BID Qty: 180 0RF pregabalin [Lyrica] 75 mg capsule 75 mg PO BID Qty: 60 5RF hydrocodone-acetaminophen 5-325 mg tablet 1 tab PO TID 30 Days Qty: 90 0RF lisinopril 5 mg tablet 5 mg PO DAILY PRN (Reason: Blood Pressure) Rx Instructions: TAKE IF BLOOD PRESSURE IS OVER 120/70 aspirin 81 mg Tablet,Delayed Release (Dr/Ec) 81 mg PO DAILY Qty: 90 0RF sertraline 50 mg tablet 50 mg PO BEDTIME chlorthalidone 25 mg Tablet 25 mg PO DAILY Qty: 30 0RF meclizine 25 mg tablet 25 mg PO BID PRN (Reason: dizziness) Qty: 30 0RF zinc acetate 50 mg (zinc) Capsule 50 mg PO DAILY acetaminophen 500 mg Tablet 500 - 1,000 mg PO Q6H PRN (Reason: Pain) isosorbide mononitrate 60 mg tablet extended release 24 hr 60 mg PO BID tamsulosin 0.4 mg capsule 0.4 mg PO BEDTIME ropinirole 2 mg tablet 2 mg PO BEDTIME pantoprazole 40 mg tablet,delayed release (DR/EC) 40 mg PO DAILY diltiazem HCl 120 mg capsule,extended release 24hr 120 mg PO DAILY alum-mag hydroxide-simeth [Antacid] 200-200-20 mg/5 mL Suspension 10 - 20 ml PO QID PRN (Reason: Acid Reflux) Rx Instructions: administer between meals and at bedtime mirtazapine 7.5 mg tablet 7.5 mg PO BEDTIME magnesium hydroxide [Milk of Magnesia] 400 mg/5 mL Suspension 30 ml PO DAILY PRN (Reason: Constipation) alum-mag hydroxide-simeth 200-200-20 mg/5 mL Suspension 30 ml PO QID PRN (Reason: Acid Reflux) Rx Instructions: administer between meals and at bedtime Spiriva Respimat 1.25 mcg/actuation mist 2 inh inhalation DAILY Qty: 4 5RF albuterol sulfate 90 mcg/actuation HFA aerosol inhaler 2 inh inhalation Q8H PRN (Reason: shortness of breath or wheezing) Qty: 6.7 3RF budesonide-formoterol [Symbicort] 160-4.5 mcg/actuation HFA aerosol inhaler 2 puff INHALATION BID 360 Days Qty: 10.2 3RF potassium chloride 20 mEq tablet extended release 20 meq PO DAILY Qty: 180 1RF Januvia 50 mg tablet 50 mg PO DAILY Qty: 90 3RF insulin glargine [Lantus Solostar U-100 Insulin] 100 unit/mL (3 mL) insulin pen 5 unit SUBCUT QPM Qty: 15 4RF insulin lispro [Humalog KwikPen Insulin] 100 unit/mL insulin pen See Rx Instructions .ROUTE .COMPLEX Qty: 15 4RF Rx Instructions: Blood sugar 150-199 please take 3 units Blood sugar 200 -249 please take 5 units Blood sugar 250-299 please take 7 units Blood sugar 300-349 please take 10 units 350-399 please take 12 units Above 400 take 16 units and notify your doctor Discharge Orders: Discharge ED (Routine); Ordered 10/14/24 Ordered By: Billy Garcia Other Ambulatory Orders: DME: Oxygen (Order) Location: None Selected Ordered By: Billy Garcia Referrals: Joe Bustillos DO [Primary Care Provider] - 4-7 days Discharge Diet: Advance as tolerated Discharge Activity: Resume usual activity Patient Instructions: Chest Pain (ED), Influenza (ED) Coding Level of Care Code ED Cvt Tech for Chg Fwd Documented by User: Billy Garcia DO 10/14/24 18:37 HPI - Chest Pain General: Chief Complaint: Chest Pain Stated Complaint: chest pain Time Seen by Provider: 10/14/24 15:32 Related Data Home Medications Medication Instructions Recorded Confirmed clopidogrel 75 mg tablet 75 mg PO DAILY 12/02/19 10/14/24 nitroglycerin 0.4 mg sublingual 0.4 mg sublingual Q5M PRN Chest 12/02/19 10/14/24 tablet (Nitrostat) Pain cholecalciferol (vitamin D3) 125 125 mcg PO DAILY 04/11/22 10/14/24 mcg (5,000 unit) capsule sertraline 50 mg tablet 50 mg PO BEDTIME 04/24/22 10/14/24 lisinopril 5 mg tablet 5 mg PO DAILY PRN Blood Pressure 05/20/22 10/14/24 acetaminophen 500 mg tablet 500 - 1,000 mg PO Q6H PRN Pain 10/06/23 10/14/24 aluminum-mag hydroxide-simethicone 30 ml PO QID PRN Acid Reflux 10/06/23 10/14/24 200 mg-200 mg-20 mg/5 mL oral susp aluminum-mag hydroxide-simethicone 10 - 20 ml PO QID PRN Acid Reflux 10/06/23 10/14/24 200 mg-200 mg-20 mg/5 mL oral susp (Antacid) diltiazem HCl 120 mg 120 mg PO DAILY 10/06/23 10/14/24 capsule,extended release 24 hr isosorbide mononitrate 60 mg 60 mg PO BID 10/06/23 10/14/24 tablet,extended release 24 hr magnesium hydroxide 400 mg/5 mL 30 ml PO DAILY PRN Constipation 10/06/23 10/14/24 oral suspension (Milk of Magnesia) mirtazapine 7.5 mg tablet 7.5 mg PO BEDTIME 10/06/23 10/14/24 pantoprazole 40 mg tablet,delayed 40 mg PO DAILY 10/06/23 10/14/24 release ropinirole 2 mg tablet 2 mg PO BEDTIME 10/06/23 10/14/24 tamsulosin 0.4 mg capsule 0.4 mg PO BEDTIME 10/06/23 10/14/24 zinc acetate 50 mg (zinc) capsule 50 mg PO DAILY 10/06/23 10/14/24 Previous Rx's Medication Instructions Recorded aspirin 81 mg tablet,delayed 81 mg PO DAILY #90 tabs 02/05/22 release chlorthalidone 25 mg tablet 25 mg PO DAILY #30 tabs 05/01/22 meclizine 25 mg tablet 25 mg PO BID PRN dizziness #30 tabs 05/01/22 albuterol sulfate 90 mcg/actuation 2 inh inhalation Q8H PRN shortness 10/07/23 aerosol inhaler of breath or wheezing #6.7 grams budesonide-formoterol HFA 160 2 puff inhalation BID 12 months 10/07/23 mcg-4.5 mcg/actuation aerosol #10.2 grams inhaler (Symbicort) insulin glargine 100 unit/mL (3 5 unit (0.05 mL) SUBCUT QPM #15 mL 10/07/23 mL) subcutaneous pen (Lantus Solostar U-100 Insulin) insulin lispro 100 unit/mL See Rx Instructions .Route 10/07/23 subcutaneous pen (Humalog KwikPen .COMPLEX #15 mL (U-100) Insulin) potassium chloride 20 mEq 20 meq PO DAILY hypokalemia #180 10/07/23 tablet,extended release tabs sitagliptin phosphate 50 mg tablet 50 mg PO DAILY #90 tabs 10/07/23 (Januvia) tiotropium bromide 1.25 2 inh inhalation DAILY #4 grams 10/07/23 mcg/actuation mist for inhalation (Spiriva Respimat) promethazine-DM 6.25 mg-15 mg/5 mL See Rx Instructions .Route 11/10/23 oral syrup .COMPLEX #200 mL tramadol 50 mg tablet 50 mg PO Q8H PRN Pain #60 tabs 11/26/23 metformin 500 mg tablet 500 mg PO BID #180 tabs 12/04/23 gabapentin 300 mg capsule 300 mg PO TID neuropathic pain 04/11/24 #180 caps mupirocin 2 % topical ointment 1 applic topical BID skin 04/11/24 infection #22 grams pregabalin 75 mg capsule (Lyrica) 75 mg PO BID neuropathy #60 caps 04/29/24 hydroxyzine HCl 25 mg tablet 25 mg PO BID anxiety or panic 06/27/24 attack #60 tabs hydrocodone 5 mg-acetaminophen 325 1 tab PO TID pain/muscle tension 1 09/13/24 mg tablet month #90 tabs oseltamivir 75 mg capsule (Tamiflu) 75 mg PO BID 5 days #10 caps 10/14/24 prednisone 50 mg tablet 50 mg PO DAILY #5 tabs 10/14/24 Allergies Allergy/AdvReac Type Severity Reaction Status Date / Time Penicillins Allergy Unknown Unknown Verified 08/30/24 11:43 tirofiban Allergy Unknown Unknown Verified 08/30/24 11:43 [From Aggrastat Concentrate] shellfish derived Allergy ADR-Vomitin Verified 08/30/24 11:43 g lorazepam [From Ativan] AdvReac Severe ADR-Halluci Verified 08/30/24 11:43 kayla [facility] ED PFS: Medical History Diabetes Acute hypoxic respiratory failure Influenza A Hypoxemia COPD exacerbation Weakness Myalgia HTN (hypertension) Late latent syphilis PSA elevation Orthostatic dizziness AAA (abdominal aortic aneurysm) Falls Hyperlipidemia Depression Peripheral neuropathy BPH (benign prostatic hyperplasia) GERD (gastroesophageal reflux disease) Tobacco abuse ASHD (arteriosclerotic heart disease) CVA (cerebral vascular accident) COPD (chronic obstructive pulmonary disease) Surgical History History of appendectomy S/P cataract extraction S/P tonsillectomy Family History Father Cancer Mother Diabetes Social History Smoking and tobacco/nicotine status: current every day tobacco/nicotine user cigarettes Packs smoked per day: 0.25 Alcohol intake: former Substance/Drug Use: former Adopted: No Caregiver/support person: No Lives independently: Yes Household members: none Housing: Apartment Marital status: Current occupational status: disabled Pets and animals: No Current gender identity: Male Course Vital Signs: Vital signs: Vital Signs Temperature 99.6 F 10/14/24 15:26 Pulse Rate 79 10/14/24 17:57 Respiratory Rate 18 10/14/24 17:57 Blood Pressure 139/67 10/14/24 17:57 Pulse Oximetry 88 L 10/14/24 18:28 Oxygen Delivery Me thod Room Air 10/14/24 17:57 Oxygen Flow Rate 3 10/14/24 18:28 MDM - Chest Pain Medical Decision Making Patient presents here with chest pain, cough fever he is flu positive is likely causing his symptoms. Patient is pending a 2-hour troponin. I did speak to patient at length he is wanting to go back to the assisted living. Will do a home oxygen eval and send back on home oxygen if 2-hour troponin is negative care turned over to Dr. Garcia Care transferred over myself at shift change, per RT patient qualifies for 3 L of oxygen continuous. Lab Data 10/14/24 16:21 10/14/24 16:21 Radiology Impressions Chest X-Ray 10/14/24 15:32 IMPRESSION: Stable mild cardiomegaly . No significant interval radiographic change from 01/08/2024. Laboratory Results WBC 10.50 10^3/uL (3.29-11.43) 10/14/24 16:21 RBC 5.45 10^6/uL (3.85-5.65) 10/14/24 16:21 Hgb 14.40 g/dL (11.27-16.99) 10/14/24 16:21 Hct 45.4 % (37-53) 10/14/24 16:21 MCV 83.3 fl (82-101) 10/14/24 16:21 MCH 26.4 pg (27-33) L 10/14/24 16:21 MCHC 31.7 g/dL (30-55) 10/14/24 16:21 RDW 17.5 % (12.1-15.1) H 10/14/24 16:21 Plt Count 211 10^3/cmm (157-399) 10/14/24 16:21 MPV 9.9 fL (7.4-10.4) 10/14/24 16:21 Neut % (Auto) 83.1 % 10/14/24 16:21 Lymph % (Auto) 9.9 % 10/14/24 16:21 [place] % (Auto) 5.1 % 10/14/24 16:21 Eos % (Auto) 0.9 % 10/14/24 16:21 Baso % (Auto) 0.6 % 10/14/24 16:21 Neut # (Auto) 8.73 10^3/uL (1.8-7.7) H 10/14/24 16:21 Lymph # (Auto) 1.0 10^3/uL (0.8-4.8) 10/14/24 16:21 [place] # (Auto) 0.5 10^3/uL (0.2-0.9) 10/14/24 16:21 Eos # (Auto) 0.1 10^3/uL (0.0-0.8) 10/14/24 16:21 Baso # (Auto) 0.1 10^3/uL (0.0-0.1) 10/14/24 16:21 Nucleated RBC % (auto) 0 % 10/14/24 16:21 Nucleated RBCs # 0.0 /100WBC 10/14/24 16:21 PT 13.40 SECONDS (12.1-14.9) 10/14/24 16:21 INR 0.96 (0.8-1.2) 10/14/24 16:21 Sodium 137 mmol/L (136-145) 10/14/24 16:21 Potassium 3.9 mmol/L (3.5-5.1) 10/14/24 16:21 Chloride 95 mmol/L (98-107) L 10/14/24 16:21 Carbon Dioxide 27 mmol/L (22-29) 10/14/24 16:21 Anion Gap 18.9 (5-19) 10/14/24 16:21 BUN 15 mg/dL (8-23) 10/14/24 16:21 Creatinine 1.0 mg/dL (0.7-1.2) 10/14/24 16:21 GFR Calculation Not Reportable 10/14/24 16:21 Glucose 129 mg/dL (65-115) H 10/14/24 16:21 Calculated Osmolality 287 mOsm/kg (285-295) 10/14/24 16:21 Lactic Acid 2.7 mmol/L (0.5-2.2) H 10/14/24 16:21 Calcium 9.5 mg/dL (8.5-10.5) 10/14/24 16:21 Total Bilirubin 0.7 mg/dL (0.15-1.2) 10/14/24 16:21 AST 37 U/L (0-40) 10/14/24 16:21 ALT 25 U/L (0-41) 10/14/24 16:21 Alkaline Phosphatase 94 U/L (40-130) 10/14/24 16:21 Troponin T Baseline 23 ng/L (0-15) H 10/14/24 16:21 Total Protein 7.5 g/dL (6.6-8.7) 10/14/24 16:21 Albumin 4.3 g/dL (3.5-5.2) 10/14/24 16:21 Globulin 3.2 g/dL (1.3-4.6) 10/14/24 16:21 Lipase 36 U/L (13-60) 10/14/24 16:21 Coronavirus (PCR) Negative (Negative) 10/14/24 16:17 Influenza A (PCR) Positive (Negative) 10/14/24 16:17 Influenza Type B (PCR) Negative (Negative) 10/14/24 16:17 RSV (PCR) Negative (Negative) 10/14/24 16:17 Discharge Plan Discharge Patient Disposition: Home Clinical Impression: Chest pain, Influenza A Condition: Stable Prescriptions: New oseltamivir [Tamiflu] 75 mg capsule 75 mg PO BID 5 Days Qty: 10 0RF prednisone 50 mg tablet 50 mg PO DAILY Qty: 5 0RF No Action clopidogrel 75 mg tablet 75 mg PO DAILY nitroglycerin [Nitrostat] 0.4 mg tablet, sublingual 0.4 mg SUBLINGUAL Q5M PRN (Reason: Chest Pain) cholecalciferol (vitamin D3) 125 mcg (5,000 unit) capsule 125 mcg PO DAILY hydroxyzine HCl 25 mg tablet 25 mg PO BID Qty: 60 1RF Rx Instructions: Keep morning dose PRN. gabapentin 300 mg capsule 300 mg PO TID Qty: 180 5RF mupirocin 2 % ointment 1 applic topical BID Qty: 22 1RF promethazine-DM 6.25-15 mg/5 mL syrup See Rx Instructions .ROUTE .COMPLEX Qty: 200 3RF Dose Instruction: TAKE ONE TEASPOONFUL (5 ML'S) BY MOUTH EVERY 6 HOURS NEEDED FOR COUGH Rx Instructions: TAKE ONE TEASPOONFUL (5 ML'S) BY MOUTH EVERY 6 HOURS NEEDED FOR COUGH tramadol 50 mg tablet 50 mg PO Q8H PRN (Reason: Pain) Qty: 60 5RF metformin 500 mg tablet 500 mg PO BID Qty: 180 0RF pregabalin [Lyrica] 75 mg capsule 75 mg PO BID Qty: 60 5RF hydrocodone-acetaminophen 5-325 mg tablet 1 tab PO TID 30 Days Qty: 90 0RF lisinopril 5 mg tablet 5 mg PO DAILY PRN (Reason: Blood Pressure) Rx Instructions: TAKE IF BLOOD PRESSURE IS OVER 120/70 aspirin 81 mg Tablet,Delayed Release (Dr/Ec) 81 mg PO DAILY Qty: 90 0RF sertraline 50 mg tablet 50 mg PO BEDTIME chlorthalidone 25 mg Tablet 25 mg PO DAILY Qty: 30 0RF meclizine 25 mg tablet 25 mg PO BID PRN (Reason: dizziness) Qty: 30 0RF zinc acetate 50 mg (zinc) Capsule 50 mg PO DAILY acetaminophen 500 mg Tablet 500 - 1,000 mg PO Q6H PRN (Reason: Pain) isosorbide mononitrate 60 mg tablet extended release 24 hr 60 mg PO BID tamsulosin 0.4 mg capsule 0.4 mg PO BEDTIME ropinirole 2 mg tablet 2 mg PO BEDTIME pantoprazole 40 mg tablet,delayed release (DR/EC) 40 mg PO DAILY diltiazem HCl 120 mg capsule,extended release 24hr 120 mg PO DAILY alum-mag hydroxide-simeth [Antacid] 200-200-20 mg/5 mL Suspension 10 - 20 ml PO QID PRN (Reason: Acid Reflux) Rx Instructions: administer between meals and at bedtime mirtazapine 7.5 mg tablet 7.5 mg PO BEDTIME magnesium hydroxide [Milk of Magnesia] 400 mg/5 mL Suspension 30 ml PO DAILY PRN (Reason: Constipation) alum-mag hydroxide-simeth 200-200-20 mg/5 mL Suspension 30 ml PO QID PRN (Reason: Acid Reflux) Rx Instructions: administer between meals and at bedtime Spiriva Respimat 1.25 mcg/actuation mist 2 inh inhalation DAILY Qty: 4 5RF albuterol sulfate 90 mcg/actuation HFA aerosol inhaler 2 inh inhalation Q8H PRN (Reason: shortness of breath or wheezing) Qty: 6.7 3RF budesonide-formoterol [Symbicort] 160-4.5 mcg/actuation HFA aerosol inhaler 2 puff INHALATION BID 360 Days Qty: 10.2 3RF potassium chloride 20 mEq tablet extended release 20 meq PO DAILY Qty: 180 1RF Januvia 50 mg tablet 50 mg PO DAILY Qty: 90 3RF insulin glargine [Lantus Solostar U-100 Insulin] 100 unit/mL (3 mL) insulin pen 5 unit SUBCUT QPM Qty: 15 4RF insulin lispro [Humalog KwikPen Insulin] 100 unit/mL insulin pen See Rx Instructions .ROUTE .COMPLEX Qty: 15 4RF Rx Instructions: Blood sugar 150-199 please take 3 units Blood sugar 200 -249 please take 5 units Blood sugar 250-299 please take 7 units Blood sugar 300-349 please take 10 units 350-399 please take 12 units Above 400 take 16 units and notify your doctor Discharge Orders: Discharge ED (Routine); Ordered 10/14/24 Ordered By: Billy Garcia Other Ambulatory Orders: DME: Oxygen (Order) Location: None Selected Ordered By: Billy Garcia Referrals: Joe Bustillos DO [Primary Care Provider] - 4-7 days Discharge Diet: Advance as tolerated Discharge Activity: Resume usual activity Patient Instructions: Chest Pain (ED), Influenza (ED) Coding Level of Care Code ED Cvt Tech for Ledy Hernandez
[2024-10-14] MEDS: ipratropium-albuterol 3 mL Neb INHALATION (15:55)
[2024-10-14] MEDS: methylPREDNISolone sod succ 125 mg/2 mL INJ IVP (16:17)
[2024-10-14] MEDS: acetaminophen 500 mg Tablet 1000 MG PO (16:17)
--- NOTE | 2024-10-14 16:20 | PC.PHAR ---
patient is from [facility]
[2024-10-14 16:34] LABS: Basophils # 0.1 10^3/uL (0.0-0.1); Basophils % 0.6 %; Eosinophils # 0.1 10^3/uL (0.0-0.8); Eosinophils % 0.9 %; Hematocrit 45.4 % (37-53); Lymphocytes % 9.9 %; Mean Corpuscular HGB Conc 31.7 g/dL (30-55); Mean Corpuscular Hemoglobin 26.4 pg (27-33); Mean Corpuscular Volume 83.3 fl (82-101); Mean Platelet Volume 9.9 fL (7.4-10.4); Monocytes # 0.5 10^3/uL (0.2-0.9); Monocytes % 5.1 %; Neutrophils # 8.73 10^3/uL (1.8-7.7); Neutrophils % 83.1 %; Nucleated Red Blood Cells % 0 %; Platelet Count 211 10^3/cmm (157-399); Red Blood Count 5.45 10^6/uL (3.85-5.65); Red Cell Distribution Width 17.5 % (12.1-15.1)
[2024-10-14 16:50] LABS: INR 0.96 (0.8-1.2)
[2024-10-14 16:56] LABS: Troponin(5th) Baseline 23 ng/L (0-15)
[2024-10-14 16:59] LABS: Covid PCR NEGATIVE (Negative); Influenza A POSITIVE (Negative); Influenza B NEGATIVE (Negative); Respiratory Syncytial Virus Ce NEGATIVE (Negative)
[2024-10-14 17:00] LABS: Lactic Sepsis W/Reflex 2.7 mmol/L (0.5-2.2)
[2024-10-14 17:09] LABS: Alanine Aminotransferase 25 U/L (0-41); Albumin Level 4.3 g/dL (3.5-5.2); Alkaline Phosphatase 94 U/L (40-130); Anion Gap 18.9 (5-19); Aspartate Amino Transferase 37 U/L (0-40); Blood Urea Nitrogen 15 mg/dL (8-23); Calcium 9.5 mg/dL (8.5-10.5); Carbon Dioxide 27 mmol/L (22-29); Chloride 95 mmol/L (98-107); Globulin 3.2 g/dL (1.3-4.6); Glucose 129 mg/dL (65-115); Lipase 36 U/L (13-60); Osmolality Calculated 287 mOsm/kg (285-295); Potassium 3.9 mmol/L (3.5-5.1); Sodium 137 mmol/L (136-145); Total Bilirubin 0.7 mg/dL (0.15-1.2); Total Protein 7.5 g/dL (6.6-8.7)
--- NOTE | 2024-10-14 17:32 | ECG_ITS ---
[facility] Test Date: 2024-10-14 Pat Name: Jose Perkins Department: Room: Gender: Male Director Of Program Management: : 1945 Requested By: Quincy Smith Order Number: [id number] Asael MD: Dalton Stephenson M.D. Measurements Intervals [place] Rate: 79 P: 151 [place]: 151 QRS: 134 QRSD: 121 T: 125 QT: 380 QTc: 437 Interpretive Statements SINUS RHYTHM ARM LEADS REVERSED [INVERTED P AND QRS IN I] Compared to ECG 10/14/2024 15:29:48 No significant changes Electronically Signed On 10-15-2024 13:29:14 DRAWER IN DOBBY LOOM by Dalton Stephenson M.D. [id number]
[2024-10-14 17:48] LABS: Reflex Lactate Order REFLEX LACTIC ORDERD
[2024-10-14] MEDS: oseltamivir phosphate 75 mg Capsule PO (18:17)
[2024-10-14 19:03] LABS: Troponin 5 2HR 21.66 ng/L (0-15)
[2024-10-14 19:09] LABS: Troponin 5 2HR Delta -1.34 ABS# (0-10)
[2024-10-14] MEDS: guaiFENesin 100 mg/5 mL UDC 10 mL 200 MG PO (20:39)
== END 2024-10-14 21:15 | disposition home or self-care (01) ==
PROVIDERS: Emergency Provider Emergency Medicine; PCP Family Medicine
DX: R07.9 Chest pain, unspecified (principal); J10.1 Influenza due to other identified influenza virus with other respiratory manifestations; Z11.52 Encounter for screening for COVID-19; Z79.02 Long term (current) use of antithrombotics/antiplatelets; Z79.84 Long term (current) use of oral hypoglycemic drugs; Z79.82 Long term (current) use of aspirin; Z79.4 Long term (current) use of insulin; F17.210 Nicotine dependence, cigarettes, uncomplicated; J44.9 Chronic obstructive pulmonary disease, unspecified; Z86.73 Personal history of transient ischemic attack (TIA), and cerebral infarction without residual deficits; E11.9 Type 2 diabetes mellitus without complications; I10 Essential (primary) hypertension; E78.5 Hyperlipidemia, unspecified
CPT/HCPCS: 36415; 71045; 80053; 83605; 83690; 84484; 85025; 85610; 87040; 87150; 87205; 87637; 93005; 94640; 94760; 96374; 99285; J2919

== ENCOUNTER → 2025-01-10 09:51 | Outpatient (BNVA) | payer MEDICARE, MEDICAID, SELFPAY | PROVIDERS: PCP Family Medicine; Visit Provider Clinical Nurse Specialist Adult Health | DX: E11.621 Type 2 diabetes mellitus with foot ulcer (principal); L97.512 Non-pressure chronic ulcer of other part of right foot with fat layer exposed | CPT/HCPCS: 73630 ==

== ENCOUNTER 2025-03-14 06:24 | Emergency (ER) | payer MEDICARE, MEDICAID, SELFPAY ==
[2025-03-14 06:25] VITALS: BP 153/73; PULSE 92; RESP 16; TEMP 36.7; O2SAT 93; BMI 29.4
--- OUTSIDE RECORDS SUMMARY | 2025-03-14 06:28 | XMS_ITS | Clinical Summary ---
Author Organization [facility] Address [address] [place] [address] Care Team Providers Care Felt Tipping Machine Tender Name Role Phone [facility], External Provider Primary Care Provider +1- [phone] Allergies Active Allergy Reactions Criticality Noted Date Comments Penicillins Rash Low 03/24/2016 Medications ATENOLOL ORAL Take by mouth 2 times daily . Active multivitamin (DAILY-DERRICK) tablet Take 1 Tablet by mouth daily. Active potassium CHLORIDE (KLOR-CON) 20 mEq Packet Take 20 mEq by mouth 2 times daily. 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 H/O amblyopia 03/24/2016 Immunizations Immunization Administration Dates Next Due Influenza Seasonal Unspecified Formulation IM Family History Medical History Relation Name Comments Cataract Mother Diabetes Mother Detachment/Tears Neg Hx Glaucoma Neg Hx Macular Degen Neg Hx Relation Name Status Comments Mother Social History Tobacco Use Types Packs/Day Years Used Date Smoking Tobacco: Every Day Cigarettes Smokeless Tobacco: Never Alcohol Use Standard Drinks/Week Comments No 0 (1 standard drink = 0.6 oz pur e alcohol) Sex and Gender Information Value Date Recorded Sex Assigned at Not on file Legal Sex Male 4:48 PM CDT Gender Identity Not on file Sexual Orientation Not on file Last Filed Vital Signs Vital Sign Reading Time Taken Comments Blood Pressure 110/60 10/28/2016 12:55 PM COMPLAINTS COORDINATOR Pulse 56 10/28/2016 12:55 PM COMPLAINTS COORDINATOR Temperature 36.3 C (97.4 F) 10/28/2016 12:55 PM COMPLAINTS COORDINATOR Respiratory Rate 18 10/28/2016 12:5 5 PM COMPLAINTS COORDINATOR Oxygen Saturation 94% 10/28/2016 12: 55 PM COMPLAINTS COORDINATOR Inhaled Oxygen Concentration - - Weight 98.8 kg (217 lb 12.8 oz) 017 12:55 PM COMPLAINTS COORDINATOR Height 177.8 cm (5' 10 ) 10/28/2016 12: 55 PM COMPLAINTS COORDINATOR Body Mass Index 31.25 10/28/2016 12:55 PM COMPLAINTS COORDINATOR Plan of Treatment Health Maintenance Due Date Last Done Comments DTAP/TDAP/TD VACCINES (1 - Tdap) 1962 PNEUMOCOCCAL VACCINE 50+ YEARS (1 of 2 - PCV) 05/17/19 62 ZOSTER VACCINE (1 of 2) 1993 RSV VACCINE (60+ or ) (1 - 1-dose 75+ series) 2018 INFLUENZA VACCINE (#1) 2025 06/26/2015 Medical Devices Implanted Type Area Bill Board Poster Device Identifier Shelf Expiration Date Model / Serial / Lot Lens Io Tecnis 1pc 23.0 [id number] - [id number] Implanted:Qty: 1 on 03/27/2016 by Kanu Diaz MD at [facility] Left: Eye [employer] 05/15/2019 [id number] / [id number] / Lens Io Tecnis 1pc 23.5 [id number] - [id number] Implanted:Qty: 1 on 04/10/2016 by Kanu Diaz MD at [facility] Right: Eye [employer] 02/18/2020 [id number] / [id number] / N/A Insurance [facility] Member Subscriber Plan / Payer (Ef fective 2015-Present) Name:Jose Perkins Relation to Subscriber:Self Name:Jose Perkins Payer ID:[id number] (NAIC) Type:Medicare [facility] Address: [address] Advance Directives For more information, please contact: [phone] * Full Code (Latest Code Status on File) Date Activated Date Inactivated Comments 04/10/2016 1:46 PM 04/10/2016 6:19 PM * Full Code Date Activated Date Inactivated Comments 03/27/2016 2:48 PM 03/27/2016 6:16 PM Care Teams Felt Tipping Machine Tender Relationship Specialty Start Date End Date [facility], External Provider [address] [place] [address] PCP - General Family Practice 03/25/16
--- OUTSIDE RECORDS SUMMARY | 2025-03-14 06:28 | XMS_ITS | Encounter Summary ---
Author Organization [facility] Address [address] [place] [address] Care Team Providers Care Scrap Preparer Name Role Phone [facility], External Provider Primary Care Provider +1- [phone] Encounter Details Date Type Department Care Team (Latest Contact Info) Description 08/07/2004 Outpatient Historical [facility] [address] [place] [phone] Sean Aquino MD [address] [place] [address] HYPERTENSION NOS (Primary Dx); HEALTH EXAM-GROUP SURVEY Social History Tobacco Use Types Packs/Day Years Used Date Smoking Tobacco: Never Assessed Sex and Gender Information Value Date Recorded Sex Assigned at Not on file Legal Sex Male 4:48 PM CDT Gender Identity Not on file Sexual Orientation Not on file documented as of this encounter Plan of Treatment Not on file documented as of this encounter Visit Diagnoses Diagnosis Unspecified essential hypertension- Primary Health examination of defined subpopulation documented in this encounter Care Teams Scrap Preparer Relationship Specialty Start Date End Date [facility], External Provider [address] [place] [address] PCP - General Family Practice 03/25/16 documented as of this encounter
--- OUTSIDE RECORDS SUMMARY | 2025-03-14 06:28 | XMS_ITS | Encounter Summary ---
Author Organization [facility] Address [address] [place] [address] Care Team Providers Care Lighting Engineering Technician Name Role Phone [facility], External Provider Primary Care Provider +1- [phone] Encounter Details Date Type Department Care Team (Latest Contact Info) Description 07/17/2005 Outpatient Historical [facility] [address] [place] [phone] Sean Aquino MD [address] [place] [address] MED EXAM NEC-ADMIN PURP (Primary Dx) Social History Tobacco Use Types Packs/Day Years Used Date Smoking Tobacco: Never Assessed Sex and Gender Information Value Date Recorded Sex Assigned at Not on file Legal Sex Male 4:48 PM CDT Gender Identity Not on file Sexual Orientation Not on file documented as of this encounter Plan of Treatment Not on file documented as of this encounter Visit Diagnoses Diagnosis Other general medical examination for administrative purposes- Primary documented in this encounter Care Teams Lighting Engineering Technician Relationship Specialty Start Date End Date [facility], External Provider [address] [place] [address] PCP - General Family Practice 03/25/16 documented as of this encounter
--- OUTSIDE RECORDS SUMMARY | 2025-03-14 06:28 | XMS_ITS | Encounter Summary ---
Author Organization [facility] Address [address] [place] [address] Care Team Providers Care Transitions Manager Name Role Phone [facility], External Provider Primary Care Provider +1- [phone] Encounter Details Date Type Department Care Team (Latest Contact Info) Description 05/06/2005 Outpatient Historical [facility] [address] [place] [phone] Sean Aquino MD [address] [place] [address] HYPERTENSION NOS (Primary Dx) Social History Tobacco Use Types [...] Visit Diagnoses Diagnosis Unspecified essential hypertension- Primary documented in this encounter Care Teams Transitions Manager Relationship Specialty Start Date End Date [facility], External Provider [address] [place] [address] PCP - General Family Practice 03/25/16 documented as of this encounter
--- OUTSIDE RECORDS SUMMARY | 2025-03-14 06:28 | XMS_ITS | Clinical Summary ---
Author Organization [facility] Address [address] [place]: Epic Prelude ADT [place] [address] Care Team Providers Care Shipfitter Apprentice Name Role Phone [facility], External Provider Primary Care Provider +1- [phone] Allergies Active Allergy Reactions Criticality Noted Date Comments Penicillins Rash Low 03/24/2016 Medications albuterol sulfate 90 mcg/Actuation inhaler 2 Active Symbicort 160-4.5 mcg/actuation HFA Aerosol Inhaler 2 Active chlorthalidone (HYGROTON) 25 mg tablet 2 Active clopidogreL (PLAVIX) 75 mg Tablet 2 Active diltiaZEM (CARDIZEM CD) 120 mg Controlled Delivery 24 hour capsule Take 120 mg by mouth daily. 2 Active gabapentin (NEURONTIN) 300 mg capsule 2 Active HYDROcodone-aceta minophen (NORCO) 5-325 mg tablet TAKE ONE TABLET BY MOUTH EVERY 4 HOURS NEEDED FOR pain AND muscle tension.max three tablets PER DAY 2 Active isosorbide mononitrate (IMDUR) 60 mg Extended Release 24 hour tablet Take 60 mg by mouth 2 times daily. 2 Active labetaloL (NORMODYNE) 200 mg tablet TAKE 1 AND 1/2 TABLETS BY MOUTH TWICE DAILY 2 Active labetaloL (NORMODYNE) 300 mg tablet TAKE ONE TABLET BY MOUTH ONCE DAILY 8AM 2 Active labetaloL (NORMODYNE) 100 mg tablet 2 Active lisinopriL (PRINIVIL) 5 mg tablet TAKE ONE TABLET BY MOUTH ONCE DAILY IN THE MORNING 2 Active LORazepam (ATIVAN) 1 mg tablet TAKE ONE TABLET BY MOUTH ONCE DAILY NEEDED FOR ANXIETY 2 Active mirtazapine (REMERON) 7.5 mg tablet Take 7.5 mg by mouth daily at bedtime. 2 Active nitroglycerin (NITROSTAT) 0.4 mg Tablet, Sublingual 2 Active sertraline (ZOLOFT) 50 mg tablet Take 50 mg by mouth daily at bedtime. 2 Active tamsulosin (FLOMAX) 0.4 mg capsule Take 0.4 mg by mouth daily. 2 Active traMADoL (ULTRAM) 50 mg tablet 2 Active pantoprazole (PROTONIX) 40 mg Tablet, Delayed Release (E.C.) Take 1 Tablet (40 mg) by mouth daily. 30 Tablet 5 2 Active aspirin (ECOTRIN EC) 81 mg Tablet, Delayed Release (E.C.) Take 81 mg by mouth daily. Active Cholecalciferol, Vitamin D3, 75 mcg (3,000 unit) Tablet Take 5,000 Units by mouth daily. Active zinc gluconate 50 mg Tablet Take by mouth daily. Active acetaminophen (TYLENOL) 500 mg tablet Take 500 mg by mouth every 6 hours as needed. Active aluminum - magnesium - simethicone (MYLANTA) 200-200-20 mg/5 mL Suspension Take 20 mL by mouth every 6 hours as needed for Dyspepsia. Active bismuth subsalicylate (PEPTO-BISMOL) 262 mg/15 mL suspension Take 30 mL by mouth every 6 hours as needed for Indigestion. Active meclizine 25 mg Tablet, Chewable Take by mouth every 8 hours as needed. Active magnesium hydroxide (MILK OF MAGNESIA) 400 mg/5 mL suspension Take 30 mL by mouth 1 time daily as needed for Constipation. Active cetirizine (ZyrTEC) 1 mg/mL Solution Take by mouth Continuous as needed for Allergies. Active omeprazole (PriLOSEC) 10 mg Capsule, Delayed Release(E.C.) Take 10 mg by mouth daily. Active multivitamin (DAILY-DERRICK) tablet Take 1 Tablet by mouth daily. 6 Active ATENOLOL ORAL Take by mouth 2 times daily . 6 Active potassium CHLORIDE (KLOR-CON) 20 mEq Packet Take 20 mEq by mouth 2 times daily. 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 Dermatochalasis of both eyelids 03/24/2016 H/O amblyopia 03/24/2016 Immunizations Immunization Administration Dates Next Due Influenza Seasonal Unspecified Formulation IM Family History Medical History Relation Name Comments Cataract Mother Diabetes Mother Colon Cancer Neg Hx Detachment/Tears Neg Hx Glaucoma Neg Hx Macular Degen Neg Hx Relation Name Status Comments Mother Social History Tobacco Use Types Packs/Day Years Used Date Smoking Tobacco: Every Day Cigarettes Smokeless Tobacco: Never Tobacco Cessation:Ready to Q uit: Not Asked; Counseling Given: Not Answered Alcohol Use Standard Drinks/Week Comments No 0 (1 standard drink = 0.6 oz pur e alcohol) Sex and Gender Information Value Date Recorded Sex Assigned at Not on file Legal Sex Male 12:45 AM REPAIR ARMATURE WINDER Gender Identity Not on file Sexual Orientation Not on file Last Filed Vital Signs Vital Sign Reading Time Taken Comments Blood Pressure 130/72 07/18/2022 1:02 PM CDT Pulse 70 07/18/2022 1:02 PM CDT Temperature 36.3 C (97.4 F) 10/28/2016 12:55 PM REPAIR ARMATURE WINDER Respiratory Rate 16 05/30/2022 3:31 PM CDT Oxygen Saturation 98% 07/18/2022 1:02 PM CDT Inhaled Oxygen Concentration - - Weight 96.6 kg (213 lb) 07/18/2022 1:02 PM CDT Height 180.3 cm (5' 11 ) 07/18/2022 1:02 PM CDT Body Mass Index 29.71 07/18/2022 1:02 PM CDT Plan of Treatment Health Maintenance Due Date Last Done Comments DTAP/TDAP/TD VACCINES (1 - Tdap) 1962 PNEUMOCOCCAL VACCINE 50+ YEARS (1 of 2 - PCV) 05/17/19 62 ZOSTER VACCINE (1 of 2) 1993 RSV VACCINE (60+ or ) (1 - 1-dose 75+ series) 2018 INFLUENZA VACCINE (#1) 2024 06/26/2015 Medical Devices Implanted Type Area Reception Centre Manager Device Identifier Shelf Expiration Date Model / Serial / Lot Lens Io Tecnis 1pc 23.0 [id number] - [id number] Implanted:Qty: 1 on 03/27/2016 by Kanu Diaz MD Eye Left: Eye [employer] 05/15/2019 [id number] / [id number] / Lens Io Tecnis 1pc 23.5 [id number] - [id number] Implanted:Qty: 1 on 04/10/2016 by Kanu Diaz MD Eye Right: Eye [employer] 02/18/2020 [id number] / [id number] / N/A Insurance [facility] MEDICARE HMO [place] Advance Directives For more information, please contact: [phone] * Full Code (Latest Code Status on File) Date Activated Date Inactivated Comments 05/30/2022 2:17 PM 05/30/2022 5:48 PM Care Teams Shipfitter Apprentice Relationship Specialty Start Date End Date [facility], External Provider [facility] [address], [place] [address] PCP - General Family Practice 03/25/16
[2025-03-14 06:32] VITALS: PULSE 87; O2SAT 91
--- NOTE | 2025-03-14 06:34 | ECG_ITS ---
[facility] Test Date: 2025-03-14 Pat Name: Jose Perkins Department: Room: Gender: Male Manager Cath Lab: : 1945 Requested By: Adolfo Antony Order Number: [id number] Asael MD: Dalton Stephenson M.D. Measurements Intervals [place] Rate: 88 P: 78 [place]: 180 QRS: 131 QRSD: 126 T: 52 QT: 381 QTc: 462 Interpretive Statements SINUS RHYTHM WITH FREQUENT VENTRICULAR PREMATURE COMPLEXES WITH OCCASIONAL SUPRAVENTRICULAR PREMATURE COMPLEXES RIGHT AXIS DEVIATION [QRS AXIS > 100] MODERATE INTRAVENTRICULAR CONDUCTION DELAY [110+ ms QRS DURATION] Compared to ECG 10/14/2024 17:48:13 Ventricular premature complex(es) now present Right-axis deviation now present Intraventricular conduction delay now present Electronically Signed On 03-16-2025 09:05:40 CDT by Dalton Stephenson M.D. [email or web address] [id number]
--- NOTE | 2025-03-14 06:41 | ED_ITS ---
HPI - Anxiety 2 General: Chief Complaint: Anxiety Stated Complaint: ANXIETY Time Seen by Provider: 03/14/25 06:30 History of Present Illness: 79-[facility] of what he describes as anxiety and some mild chest discomfort. He states he was at assisted living they did not want to give him any of his antianxiety medicines early. He began to get more more anxious and ultimately was transferred to the emergency room because he mentioned he was short of breath and chest comfort no chest comfort on arrival here. Associated symptoms: Deny chest pain, chills or fever(s) Related Data Home Medications ?Medication ?Instructions ?Recorded ?Confirmed clopidogrel 75 mg tablet 75 mg PO DAILY 12/02/1910/08 nitroglycerin 0.4 mg sublingual 0.4 mg sublingual Q5M PRN Chest 12/02/19 03/14/25 tablet (Nitrostat) Pain cholecalciferol (vitamin D3) 125 125 mcg PO DAILY 03/1503/14/25 mcg (5,000 unit) capsule lisinopril 5 mg tablet 5 mg PO DAILY PRN Blood Pres sure 05/20/22 03/14/25 acetaminophen 500 mg tablet 500 - 1,000 mg PO Q6H PRN 10/06/23 03/14/25 Pain/fever aluminum-mag hydroxide-simethicone 30 ml PO QID PRN Ac id Reflux 10/06/23 03/14/25 200 mg-200 mg-20 mg/5 mL oral susp aluminum-mag hydroxide-simethicone 10 - 20 ml PO QID P RN Acid Reflux 10/06/23 03/14/25 200 mg-200 mg-20 mg/5 mL oral susp (Antacid) diltiazem HCl 120 mg 120 mg PO DAILY 10/06/2310/08 capsule,extended release 24 hr isosorbide mononitrate 60 mg 60 mg PO BID 10/06/2310/08 tablet,extended release 24 hr magnesium hydroxide 400 mg/5 mL 30 ml PO DAILY PRN Con stipation 10/06/23 03/14/25 oral suspension (Milk of Magnesia) pantoprazole 40 mg tablet,delayed 40 mg PO DAILY 10/0603/14/25 release ropinirole 2 mg tablet 2 mg PO BEDTIME 10/06/2310/08 tamsulosin 0.4 mg capsule 0.4 mg PO BEDTIME 10/06/23 0 03/14/25 zinc acetate 50 mg (zinc) capsule 50 mg PO DAILY 10/0603/14/25 bismuth subsalicylate 262 mg/15 mL 524 mg PO Q1H PRN D iarrhea 03/14/25 03/14/25 oral suspension insulin glargine 100 unit/mL (3 5 unit SUBCUT BEDTIME 03/14/25 03/14/25 mL) subcutaneous pen (Lantus Solostar U-100 Insulin) tramadol 50 mg tablet 50 mg PO Q8H PRN Pain 03/14/25 trazodone 100 mg tablet 100 mg PO BEDTIME 03/14/25 0 03/14/25 anxiety/depression/sleep Previous Rx's ?Medication ?Instructions ?Recorded aspirin 81 mg tablet,delayed 81 mg PO DAILY #90 tabs 0 02/05/22 release chlorthalidone 25 mg tablet 25 mg PO DAILY #30 tabs meclizine 25 mg tablet 25 mg PO BID PRN dizziness # 30 tabs 05/01/22 albuterol sulfate 90 mcg/actuation 2 inh inhalation Q8 H PRN shortness 10/07/23 aerosol inhaler of breath or wheezing #6.7 g zachery budesonide-formoterol HFA 160 2 puff inhalation BID 12 months 10/07/23 mcg-4.5 mcg/actuation aerosol #10.2 grams inhaler (Symbicort) insulin lispro 100 unit/mL See Rx Instructions .Route 10/07/23 subcutaneous pen (Humalog KwikPen .COMPLEX #15 mL (U-100) Insulin) potassium chloride 20 mEq 20 meq PO DAILY hypokalemia #180 10/07/23 tablet,extended release tabs sitagliptin phosphate 50 mg tablet 50 mg PO DAILY #90 tabs 10/07/23 (Januvia) tiotropium bromide 1.25 2 inh inhalation DAILY #4 gr ams 10/07/23 mcg/actuation mist for inhalation (Spiriva Respimat) promethazine-DM 6.25 mg-15 mg/5 mL See Rx Instructions .Route 11/10/23 oral syrup .COMPLEX #200 mL metformin 500 mg tablet 500 mg PO BID #180 tabs 11/13 11/07 gabapentin 300 mg capsule 300 mg PO TID neuropathic pa in 04/11/24 #180 caps mupirocin 2 % topical ointment 1 applic topical BID sk in 04/11/24 infection #22 grams wheel chair, standard with leg #1 ea 11/22/24 rests risperidone 0.25 mg tablet 0.25 mg PO BID #60 tabs 02/05 pregabalin 75 mg capsule (Lyrica) 75 mg PO QDAY neurop athy #30 caps 02/17/25 fluoxetine 40 mg capsule 40 mg PO DAILY anxiety #30 c aps 02/22/25 hydrocodone 5 mg-acetaminophen 325 1 tab PO TID pain/m uscle tension 1 03/01/25 mg tablet month #90 tabs bed side urinal #1 ea 03/07/25 hydroxyzine HCl 50 mg tablet 50 mg PO TID anxiety or p anic 03/14/25 attack #90 tabs Allergies Allergy/AdvReac Type Severity Reaction Status Date / Time Penicillins Allergy Unknown Unknown Verified 03/07/25 08:36 tirofiban (From Aggrastat Allergy Unknown Unknown Verified 03/07/25 08:36 Concentrate) shellfish derived Allergy ADR-Vomitin Verified 03/07/25 08:36 g lorazepam (From Ativan) AdvReac Severe ADR-Halluci Verified 03/07/25 08:36 nating Review of Systems 2 Const: Denies: fever(s) or chills Card: Denies: chest pain Resp: Denies: dyspnea GI: Denies: abdominal pain : Denies: dysuria, urinary frequency or urinary urgency Musc: Denies: neck pain or back pain Skin/Breast: Denies: rash Psych: Reports: anxiety PFSH ED 2 PFSH: Medical History Diabetes Acute hypoxic respiratory failure Influenza A Hypoxemia COPD exacerbation Weakness Myalgia HTN (hypertension) Late latent syphilis PSA elevation Orthostatic dizziness AAA (abdominal aortic aneurysm) Falls Hyperlipidemia Depression Peripheral neuropathy BPH (benign prostatic hyperplasia) GERD (gastroesophageal reflux disease) Tobacco abuse ASHD (arteriosclerotic heart disease) CVA (cerebral vascular accident) COPD (chronic obstructive pulmonary disease) Surgical History History of appendectomy S/P cataract extraction S/P tonsillectomy Family History Father Cancer Mother Diabetes Social History Smoking and tobacco/nicotine status: current every day tobacco/nicotine user cigarettes Packs smoked per day: 0.25 Alcohol intake: former Substance/Drug Use: former Adopted: No Caregiver/support person: No Lives independently: Yes Household members: none Housing: Apartment Marital status: Current occupational status: disabled Pets and animals: No Current gender identity: Male Physical Exam 2 Const: COMMON NORMALS: no acute distress GENERAL APPEARANCE: cooperative and comfortable ORIENTATION/CONSCIOUSNESS: Yes awake, Yes oriented to person, Yes oriented to place and Yes oriented to time HENMT: COMMON NORMALS: normocephalic, atraumatic and hearing grossly normal bilaterally HEAD & SCALP: normocephalic and atraumatic Resp: COMMON NORMALS: normal respiratory effort, No retractions, No use of accessory muscles and clear to auscultation bilaterally AUSCULTATION: clear to auscultation bilaterally Cardio: COMMON NORMALS: regular rate, regular rhythm and No murmurs present (Cardio) RATE: regular rate RHYTHM: regular rhythm GI: COMMON NORMALS: Soft to palpation and No hepatosplenomegaly present A USCULTATION: Yes normoactive bowel sounds PALPATION: Yes Soft to palpation, No Tenderness to palpation present (GI), No Guarding due to palpation present (GI) and Yes No hepatosplenomegaly present Extremity: COMMON NORMALS: normal to inspection, capillary refill normal, no clubbing, cyanosis or edema, no calf tenderness and no pedal edema Neuro: SENSORIUM/ORIENTATION: Yes oriented to person, Yes oriented to place and Yes oriented to time Skin: COMMON NORMALS: no rashes or lesions noted GENERAL SKIN EXAM: no rashes or lesions noted Course 2 Vital Signs: Vital signs: Vital Signs Temperature 98.1 F 03/14/25 06:25 Pulse Rate 84 03/14/25 09:45 Respiratory Rate 14 03/14/25 07:38 Blood Pressure 151/73 03/14/25 09:45 Pulse Oximetry 98 03/14/25 09:45 Oxygen Delivery Me thod Room Air 03/14/25 06:32 MDM - Anxiety Medical Decision Making No acute symptoms and is seen the patient is chest pain and nearly completely resolved with given Benadryl and he had significant relief had a short episode of nausea vomiting resolved with the second dose of Benadryl he is not having any further chest pain or shortness of breath. Will discharge back to the nursing is primary continue just medications for anxiety. Medical Records I reviewed the patient's medical records. Lab Data I reviewed the patient's lab results. 03/14/25 06:43 03/14/25 06:43 Radiology Impressions Chest X-Ray 03/14/25 06:57 IMPRESSION: Stable chest without acute abnormality. Laboratory Results WBC 17.02 10^3/uL (3.29-11.43) H 03/14/25 06:43 RBC 5.48 10^6/uL (3.85-5.65) 03/14/25 06:43 Hgb 14.30 g/dL (11.27-16.99) 03/14/25 06:43 Hct 43.8 % (37-53) 03/14/25 06:43 MCV 79.9 fl (82-101) L 03/14/25 06:43 MCH 26.1 pg (27-33) L 03/14/25 06:43 MCHC 32.6 g/dL (30-55) 03/14/25 06:43 RDW 16.1 % (12.1-15.1) H 03/14/25 06:43 Plt Count 235 10^3/cmm (157-399) 03/14/25 06:43 MPV 9.1 fL (7.4-10.4) 03/14/25 06:43 Neut % (Auto) 87.3 % 03/14/25 06:43 Lymph % (Auto) 6.5 % 03/14/25 06:43 Mccracken % (Auto) 4.6 % 03/14/25 06:43 Eos % (Auto) 0.9 % 03/14/25 06:43 Baso % (Auto) 0.2 % 03/14/25 06:43 Neut # (Auto) 14.86 10^3/uL (1.8-7.7) H 03/14/25 06:43 Lymph # (Auto) 1.1 10^3/uL (0.8-4.8) 03/14/25 06:43 Mccracken # (Auto) 0.8 10^3/uL (0.2-0.9) 03/14/25 06:43 Eos # (Auto) 0.2 10^3/uL (0.0-0.8) 03/14/25 06:43 Baso # (Auto) 0.0 10^3/uL (0.0-0.1) 03/14/25 06:43 Nucleated RBC % (auto) 0 % 03/14/25 06:43 Nucleated RBCs # 0.0 /100WBC 03/14/25 06:43 Sodium 134 mmol/L (136-145) L 03/14/25 06:43 Potassium 3.4 mmol/L (3.5-5.1) L 03/14/25 06:43 Chloride 92 mmol/L (98-107) L 03/14/25 06:43 Carbon Dioxide 29 mmol/L (22-29) 03/14/25 06:43 Anion Gap 16.4 (5-19) 03/14/25 06:43 BUN 16 mg/dL (8-23) 03/14/25 06:43 Creatinine 0.9 mg/dL (0.7-1.2) 03/14/25 06:43 GFR Calculation Not Reportable 03/14/25 06:43 Glucose 155 mg/dL (65-115) H 03/14/25 06:43 Calculated Osmolality 282 mOsm/kg (285-295) L 03/14/25 06:43 Calcium 10.2 mg/dL (8.5-10.5) 03/14/25 06:43 Total Bilirubin 1.0 mg/dL (0.15-1.2) 03/14/25 06:43 AST 21 U/L (0-40) 03/14/25 06:43 ALT 18 U/L (0-41) 03/14/25 06:43 Alkaline Phosphatase 76 U/L (40-130) 03/14/25 06:43 Total Protein 7.8 g/dL (6.6-8.7) 03/14/25 06:43 Albumin 4.1 g/dL (3.5-5.2) 03/14/25 06:43 Globulin 3.7 g/dL (1.3-4.6) 03/14/25 06:43 Urine Color Yellow (Yellow) 03/14/25 07:50 Urine Appearance Clear (CLEAR) 03/14/25 07:50 Urine pH 7.5 (5-7) 03/14/25 07:50 Ur Specific [place] 1.021 (1.005-1.030) 03/14/25 07:50 Urine Protein 1+ (Negative) A 03/14/25 07:50 Urine Glucose (UA) Negative (Normal) 03/14/25 07:50 Urine Ketones Trace (Negative) 03/14/25 07:50 Urine Blood Negative (Negative) 03/14/25 07:50 Urine Nitrate Negative (Negative) 03/14/25 07:50 Urine Bilirubin Negative (Negative) 03/14/25 07:50 Urine Urobilinogen 1.0 mg/dL (Negative) 03/14/25 07:50 Ur Leukocyte Esterase Negative (Negative) 03/14/25 07:50 Urine RBC 0-2 /hpf (0-2) 03/14/25 07:50 Urine WBC 0-5 /hpf (0-5) 03/14/25 07:50 Ur Squamous Epith Cells 0-5 /hpf (0-5) 03/14/25 07:50 Amorphous Sediment Not Reportable 03/14/25 07:50 Urine Bacteria None seen /hpf (NONE) 03/14/25 07:50 Hyaline Casts 0.40 /lpf 03/14/25 07:50 All radiology interpretation(s) finalized by discharge EKG Data EKG 1: Interpretation: Chest X-Ray 03/14/25 06:57 IMPRESSION: Stable chest without acute abnormality. EKG 03/14/2025 6:34 AM sinus rhythm significant amount of baseline artifact noted PVCs noted no identifiable acute ST changes. CT interval 180 corrected QTc 462. Previous EKG compared you from October 14, 2024 Other EKG comments: Chest X-Ray 03/14/25 06:57 IMPRESSION: Stable chest without acute abnormality. Discharge Plan Discharge Patient Disposition: Home Clinical Impression: Anxiety, Atypical chest pain, Nausea and vomiting Condition: Stable Prescriptions: No Action clopidogrel 75 mg tablet 75 mg PO DAILY nitroglycerin [Nitrostat] 0.4 mg tablet, sublingual 0.4 mg SUBLINGUAL Q5M PRN (Reason: Chest Pain) cholecalciferol (vitamin D3) 125 mcg (5,000 unit) capsule 125 mcg PO DAILY fluoxetine 40 mg capsule 40 mg PO DAILY Qty: 30 1RF (DME) bed side urinal See Rx Instructions .Route .MEDSUPPLY Qty: 1 0RF Rx Instructions: As directed gabapentin 300 mg capsule 300 mg PO TID Qty: 180 5RF mupirocin 2 % ointment 1 applic topical BID Qty: 22 1RF (DME) wheel chair, standard with leg rests See Rx Instructions .Route .MEDSUPPLY Qty: 1 0RF Rx Instructions: As directed risperidone 0.25 mg tablet 0.25 mg PO BID Qty: 60 0RF pregabalin [Lyrica] 75 mg capsule 75 mg PO QDAY Qty: 30 0RF promethazine-DM 6.25-15 mg/5 mL syrup See Rx Instructions .ROUTE .COMPLEX Qty: 200 3RF Dose Instruction: TAKE ONE TEASPOONFUL (5 ML'S) BY MOUTH EVERY 6 HOURS NEEDED FOR COUGH Rx Instructions: TAKE ONE TEASPOONFUL (5 ML'S) BY MOUTH EVERY 6 HOURS NEEDED FOR COUGH metformin 500 mg tablet 500 mg PO BID Qty: 180 0RF hydrocodone-acetaminophen 5-325 mg tablet 1 tab PO TID 30 Days Qty: 90 0RF hydroxyzine HCl 50 mg tablet 50 mg PO TID Qty: 90 0RF Rx Instructions: hold if sedated lisinopril 5 mg tablet 5 mg PO DAILY PRN (Reason: Blood Pressure) Rx Instructions: TAKE IF BLOOD PRESSURE IS OVER 120/70 tramadol 50 mg Tablet 50 mg PO Q8H PRN (Reason: Pain) bismuth subsalicylate [Bismuth] 262 mg/15 mL Suspension 524 mg PO Q1H PRN (Reason: Diarrhea) Rx Instructions: do not exceed 8 doses in a 24 hour period trazodone 100 mg tablet 100 mg PO BEDTIME insulin glargine [Lantus Solostar U-100 Insulin] 100 unit/mL (3 mL) insulin pen 5 unit SUBCUT BEDTIME aspirin 81 mg Tablet,Delayed Release (Dr/Ec) 81 mg PO DAILY Qty: 90 0RF chlorthalidone 25 mg Tablet 25 mg PO DAILY Qty: 30 0RF meclizine 25 mg tablet 25 mg PO BID PRN (Reason: dizziness) Qty: 30 0RF zinc acetate 50 mg (zinc) Capsule 50 mg PO DAILY acetaminophen 500 mg Tablet 500 - 1,000 mg PO Q6H PRN (Reason: Pain/fever) isosorbide mononitrate 60 mg tablet extended release 24 hr 60 mg PO BID tamsulosin 0.4 mg capsule 0.4 mg PO BEDTIME ropinirole 2 mg tablet 2 mg PO BEDTIME pantoprazole 40 mg tablet,delayed release (DR/EC) 40 mg PO DAILY diltiazem HCl 120 mg capsule,extended release 24hr 120 mg PO DAILY alum-mag hydroxide-simeth [Antacid] 200-200-20 mg/5 mL Suspension 10 - 20 ml PO QID PRN (Reason: Acid Reflux) Rx Instructions: administer between meals and at bedtime magnesium hydroxide [Milk of Magnesia] 400 mg/5 mL Suspension 30 ml PO DAILY PRN (Reason: Constipation) alum-mag hydroxide-simeth 200-200-20 mg/5 mL Suspension 30 ml PO QID PRN (Reason: Acid Reflux) Rx Instructions: administer between meals and at bedtime Spiriva Respimat 1.25 mcg/actuation mist 2 inh inhalation DAILY Qty: 4 5RF albuterol sulfate 90 mcg/actuation HFA aerosol inhaler 2 inh inhalation Q8H PRN (Reason: shortness of breath or wheezing) Qty: 6.7 3RF budesonide-formoterol [Symbicort] 160-4.5 mcg/actuation HFA aerosol inhaler 2 puff INHALATION BID 360 Days Qty: 10.2 3RF potassium chloride 20 mEq tablet extended release 20 meq PO DAILY Qty: 180 1RF Januvia 50 mg tablet 50 mg PO DAILY Qty: 90 3RF insulin lispro [Humalog KwikPen Insulin] 100 unit/mL insulin pen See Rx Instructions .ROUTE .COMPLEX Qty: 15 4RF Rx Instructions: Blood sugar 150-199 please take 3 units Blood sugar 200 -249 please take 5 units Blood sugar 250-299 please take 7 units Blood sugar 300-349 please take 10 units 350-399 please take 12 units Above 400 take 16 units and notify your doctor Discharge Orders: Discharge ED (Routine); Ordered 03/14/25 Ordered By: Adolfo Villarreal Referrals: Joe Bustillos DO [Primary Care Provider, Family Practice] Patient Instructions: Opioid Safety, Pain Management, Patient Portal & Tnoya Instructions Activity Restrictions/Additional Instructions: Thank you for choosing [facility] for your healthcare needs today. It is very important that you follow up as instructed or that you return to the Emergency Department should you have concerns or if your condition changes or worsens in any way. You were seen in the emergency room with complaints of anxiety and some mild chest discomfort. You reported the chest discomfort resolved after you given the Benadryl. She did have a brief course of nausea vomiting which also improved after the medications. Your white count was slightly elevated urine and chest x-ray were normal. You do still have a diabetic foot ulcer that should be watched closely. You requested to leave at this time there does not appear to be any emergent medical condition. Follow-up with your primary care doctor through the assisted living home. Print Language: Maltese Coding Level of Care Code ED Edger Machine Helper for Ledy Hernandez
[2025-03-14 06:52] LABS: Hematocrit 43.8 % (37-53); Hemoglobin 14.30 g/dL (11.27-16.99); Mean Corpuscular HGB Conc 32.6 g/dL (30-55); Mean Corpuscular Hemoglobin 26.1 pg (27-33); Mean Corpuscular Volume 79.9 fl (82-101); Nucleated Red Blood Cells % 0 %; Platelet Count 235 10^3/cmm (157-399); Red Blood Count 5.48 10^6/uL (3.85-5.65); White Blood Count 17.02 10^3/uL (3.29-11.43)
--- NOTE | 2025-03-14 06:57 | XR_ITS ---
WS: [id number] XR chest 1V portable [id number] REASON FOR EXAM: dyspnea/cough FINDINGS: The chest is stable compared to 10/14/2024. Calcification in the aortic arch with moderate tortuosity and ectasia of the thoracic aorta. Heart size is within normal limits. Calcified granulomatous disease bilaterally. No acute pulmonary parenchymal or pleural abnormality. Mild degenerative spondylosis in the mid and lower thoracic spine. 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 XR/XR chest 1V portable [id number] IMPRESSION: Stable chest without acute abnormality.
[2025-03-14] MEDS: diphenhydrAMINE 50 mg/mL SDV 1mL 25 MG IVP ×2 (06:59→07:30)
[2025-03-14 07:10] LABS: Alanine Aminotransferase 18 U/L (0-41); Albumin Level 4.1 g/dL (3.5-5.2); Alkaline Phosphatase 76 U/L (40-130); Anion Gap 16.4 (5-19); Aspartate Amino Transferase 21 U/L (0-40); Blood Urea Nitrogen 16 mg/dL (8-23); Calcium 10.2 mg/dL (8.5-10.5); Carbon Dioxide 29 mmol/L (22-29); Chloride 92 mmol/L (98-107); Creatinine Clr Calc Pharmacy 73.7449; Globulin 3.7 g/dL (1.3-4.6); Glucose 155 mg/dL (65-115); Osmolality Calculated 282 mOsm/kg (285-295); Potassium 3.4 mmol/L (3.5-5.1); Sodium 134 mmol/L (136-145); Total Protein 7.8 g/dL (6.6-8.7)
[2025-03-14 07:38] VITALS: PULSE 89; RESP 14
[2025-03-14 08:12] LABS: Glucose Urine UA Negative (Normal); Nitrate Urine Negative (Negative); Specific Gravity, Urine 1.021 (1.005-1.030)
[2025-03-14 08:15] LABS: Add Urine Microscopic? YES
[2025-03-14 09:45] VITALS: BP 151/73; PULSE 84; O2SAT 98
== END 2025-03-14 09:45 | disposition home or self-care (01) ==
PROVIDERS: Emergency Provider Family Medicine; PCP Family Medicine
DX: F41.9 Anxiety disorder, unspecified (principal); R07.89 Other chest pain; R11.2 Nausea with vomiting, unspecified; Z79.02 Long term (current) use of antithrombotics/antiplatelets; Z79.84 Long term (current) use of oral hypoglycemic drugs; Z79.4 Long term (current) use of insulin; Z79.82 Long term (current) use of aspirin; F17.210 Nicotine dependence, cigarettes, uncomplicated; J44.9 Chronic obstructive pulmonary disease, unspecified; E78.5 Hyperlipidemia, unspecified; Z86.73 Personal history of transient ischemic attack (TIA), and cerebral infarction without residual deficits; I10 Essential (primary) hypertension; E11.9 Type 2 diabetes mellitus without complications
CPT/HCPCS: 71045; 80053; 81001; 85025; 93005; 96374; 96376; 99285; J1200

== ENCOUNTER 2025-03-26 19:35 | Emergency (ER) | payer MEDICARE, MEDICAID, SELFPAY ==
[2025-03-26] VITALS (10 sets, daily range): BP systolic 117–143; BP diastolic 68–79; PULSE 71–85; RESP 15–20; TEMP 36.7; O2SAT 91–95; BMI 29.1
--- OUTSIDE RECORDS SUMMARY | 2025-03-26 19:38 | XMS_ITS | Encounter Summary ---
Author Organization [facility] Address [address] [place] [address] Care Team Providers Care Compliance Nurse Name Role Phone [facility], External Provider Primary Care Provider [phone]- [phone] Encounter Details Date Type Department Care Team (Latest Contact Info) Description 08/07/2004 Outpatient [facility] [address] [place] [phone] Sean Aquino MD [address] [place] [address] HYPERTENSION NOS (Primary Dx); HEALTH [...] subpopulation documented in this encounter Care Teams Compliance Nurse Relationship Specialty Start Date End Date [facility], External Provider [address] [place], [place] [id number] PCP - General Family Practice 03/25/16 documented as of this encounter
--- OUTSIDE RECORDS SUMMARY | 2025-03-26 19:38 | XMS_ITS | Encounter Summary ---
Author Organization [facility] Address [address] [place] [address] Care Team Providers Care Bunch Maker Name Role Phone [facility], External Provider Primary Care Provider +1- [phone] Encounter Details Date Type Department Care Team (Latest Contact Info) Description 07/17/2005 Outpatient Historical [facility] Medicine- [place] [address] [place] [phone] Sean Aquino MD [address] [place] [address] MED EXAM NEC-ADMIN PURP (Primary [...] Primary documented in this encounter Care Teams Bunch Maker Relationship Specialty Start Date End Date [facility], External Provider [address] [place] [address] PCP - General Family Practice 03/25/16 documented as of this encounter
--- OUTSIDE RECORDS SUMMARY | 2025-03-26 19:38 | XMS_ITS | Clinical Summary ---
Author Organization [employer] Address [address] Zaragoza: Epic Prelude ADT [place] [address] Care Team Providers Care Senior Fire Protection Engineer Name Role Phone [facility], External Provider Primary Care Provider [phone]- [phone] Allergies Active Allergy Reactions Criticality Noted Date [...] on file Legal Sex Male 12:45 AM CLINICAL DOCUMENTATION CONSULTANT Gender Identity Not on file Sexual Orientation Not on file Last Filed Vital Signs Vital Sign Reading Time Taken Comments Blood Pressure 130/72 07/18/2022 1:02 PM CDT Pulse 70 07/18/2022 1:02 PM CDT Temperature 36.3 C (97.4 F) 10/28/2016 12:55 PM CLINICAL DOCUMENTATION CONSULTANT Respiratory Rate 16 05/30/2022 3:31 PM CDT [...] 2025 06/26/2015 Medical Devices Implanted Type Area Catalyst Operator Gasoline Device Identifier Shelf Expiration Date Model / Serial / Lot Lens Io Tecnis 1pc 23.0 [id number] - [id number] Implanted:Qty: 1 on 03/27/2016 by Kanu Diaz MD Eye Left: Eye [employer] 05/15/2019 [id number] / [id number] / Lens Io Tecnis 1pc 23.5 [id number] - [id number] Implanted:Qty: 1 on 04/10/2016 by Kanu Diaz MD Eye Right: Eye [employer] 02/18/2020 [id number] / [id number] / N/A Insurance [facility] MEDICARE HMO [place]ICAID [place] Advance Directives For more information, please contact: [phone] * Full Code (Latest Code Status on File) Date Activated Date Inactivated Comments 05/30/2022 2:17 PM 05/30/2022 5:48 PM Care Teams Senior Fire Protection Engineer Relationship Specialty Start Date End Date [facility], External Provider [facility] [address] [place], [place] [id number] PCP - General Family Practice 03/25/16
--- OUTSIDE RECORDS SUMMARY | 2025-03-26 19:38 | XMS_ITS | Encounter Summary ---
Author Organization [facility] Address [address] [place] [address] Care Team Providers Care Sap Basis Architect Name Role Phone [facility], External Provider Primary Care Provider +1- [phone] Encounter Details Date Type Department Care Team (Latest Contact Info) Description 05/06/2005 Outpatient Historical [facility] [address] [place] [phone] Sean Aquino MD [address] [place] [address] HYPERTENSION NOS (Primary Dx) Social [...] Primary documented in this encounter Care Teams Sap Basis Architect Relationship Specialty Start Date End Date [facility], External Provider [address] [place] [address] PCP - General Family Practice 03/25/16 documented as of this encounter
--- OUTSIDE RECORDS SUMMARY | 2025-03-26 19:38 | XMS_ITS | Clinical Summary ---
Author Organization [facility] Address [address] [place] [address] Care Team Providers Care Pattern Finisher Name Role Phone [facility], External Provider Primary Care Provider +1- [phone] Allergies Active Allergy Reactions Criticality Noted Date [...] Comments Blood Pressure 110/60 10/28/2016 12:55 PM GARNISHMENT SPECIALIST Pulse 56 10/28/2016 12:55 PM GARNISHMENT SPECIALIST Temperature 36.3 C (97.4 F) 10/28/2016 12:55 PM GARNISHMENT SPECIALIST Respiratory Rate 18 10/28/2016 12:5 5 PM GARNISHMENT SPECIALIST Oxygen Saturation 94% 10/28/2016 12: 55 PM GARNISHMENT SPECIALIST Inhaled Oxygen Concentration - - Weight 98.8 kg (217 lb 12.8 oz) 017 12:55 PM GARNISHMENT SPECIALIST Height 177.8 cm (5' 10 ) 10/28/2016 12: 55 PM GARNISHMENT SPECIALIST Body Mass Index 31.25 10/28/2016 12:55 PM GARNISHMENT SPECIALIST Plan of Treatment Health Maintenance Due Date Last Done Comments DTAP/TDAP/TD VACCINES (1 - Tdap) 1962 PNEUMOCOCCAL VACCINE 50+ YEARS (1 of 2 - PCV) 05/17/19 62 ZOSTER VACCINE (1 of 2) 1993 RSV VACCINE (60+ or ) (1 - 1-dose 75+ series) 2018 INFLUENZA VACCINE (#1) 2025 06/26/2015 Medical Devices Implanted Type Area Acquisitions Assistant Device Identifier Shelf Expiration Date Model / Serial / Lot Lens Io Tecnis 1pc 23.0 [id number] - [id number] Implanted:Qty: 1 on 03/27/2016 by Kanu Diaz MD at [facility] Left: Eye [employer] 05/15/2019 [id number] / [id number] / Lens Io Tecnis 1pc 23.5 [id number] - [id number] Implanted:Qty: 1 on 04/10/2016 by Kanu Diaz MD at [facility] Right: Eye [employer] 02/18/2020 [id number] / [id number] / N/A Insurance [facility] Member Subscriber Plan / Payer (Ef fective 2015-Present) Name:Jose Perkins Relation to Subscriber:Self Name:Jose Perkins Payer ID:[id number] (NAIC) Type:Medicare [facility] Care Address: [address] Advance Directives For more information, please contact: [phone] * Full Code (Latest Code Status on File) Date Activated Date Inactivated Comments 04/10/2016 1:46 PM 04/10/2016 6:19 PM * Full Code Date Activated Date Inactivated Comments 03/27/2016 2:48 PM 03/27/2016 6:16 PM Care Teams Pattern Finisher Relationship Specialty Start Date End Date [facility], External Provider [address] [place] [id number] PCP - General Family Practice 03/25/16
--- NOTE | 2025-03-26 19:53 | CTR_ITS ---
PROCEDURE INFORMATION: Exam: CT Abdomen And Pelvis With Contrast Exam date and time: 03/26/2025 8:28 PM Age: 79 years old Clinical indication: Abdominal pain; Generalized; Prior surgery; Surgery date: 6+ months; Surgery type: Appy; C/O abd pain with bloody stool. History of aaa. ; Additional info: Abdominal pain with known aaa TECHNIQUE: Imaging protocol: Computed tomography of the abdomen and pelvis with contrast. Radiation optimization: All CT scans at this facility use at least one of these dose optimization techniques: automated exposure control; mA and/or kV adjustment per patient size (includes targeted exams where dose is matched to clinical indication); or iterative reconstruction. Contrast material: OMNI 350; Contrast volume: 100 ml; Contrast route: INTRAVENOUS (IV); COMPARISON: CT angio abdomen pelvis [id number] 04/25/2022 1:18 PM RADIATION DOSE METRICS: Total DLP (mGy-cm): 790.21 FINDINGS: Lungs: Images through the lung bases demonstrate stable noncalcified nodule medial right lung base. Liver: Mild decreased Hounsfield density measurements of the liver suggesting mild fatty liver. Liver shows no focal abnormality or abnormal enlargement. Gallbladder and biliary ducts: Previous cholecystectomy. No significant biliary ductal dilatation. Pancreas: Mild pancreatic atrophy. Pancreas is otherwise unremarkable. Spleen: Normal. No splenomegaly. Adrenal glands: Normal. No mass. Kidneys and ureters: Bilateral renal cysts when correlated with 2021 exam. No hydronephrosis or obstruction. Kidneys are otherwise unremarkable. Stomach and bowel: No bowel obstruction. Diverticulosis of the left and sigmoid colon. Abnormal appearance of the distal left colon within the upper left pelvis, with wall thickening and adjacent pericolonic mesenteric stranding consistent with acute diverticulitis. No fluid collection or abscess. No free air to indicate perforation. Appendix: Previous appendectomy. Intraperitoneal space: No free fluid or ascites within the abdomen/pelvis. No free air. Vasculature: Infrarenal abdominal aortic aneurysm of 5.7 cm in maximum transverse diameter, with previous measurement of 5.3 cm. This is otherwise unchanged from previous exam. No findings to indicate leakage/rupture. No perianeurysmal hematoma. Atherosclerotic vascular disease as noted otherwise with previous exam. Lymph nodes: Unremarkable. No enlarged lymph nodes. Urinary bladder: See Reproductive finding. Reproductive: Enlarged prostate indenting or encroaching the base of the urinary bladder, as noted with prior exam. A component of urinary bladder wall thickening, some of which may be related to incomplete distension though correlate clinically regarding urinary bladder outlet abnormality for cystitis. Bones/joints: Unremarkable. No acute fracture. Soft tissues: Diastasis rectus at the umbilicus with mesenteric fat protrusion at this level mild ventral hernia of fat. CT/CT abdomen pelvis w con* [id number] IMPRESSION: 1. Diverticulosis of the left and sigmoid colon with findings of non complicated acute diverticulitis of the distal left colon within the upper left pelvis. 2. Infrarenal abdominal aortic aneurysm as noted with prior exam, with maximum transverse diameter of 5.7 cm with today's exam (previous maximum transverse diameter of 5.3 cm). 3. Previous cholecystectomy and appendectomy. 4. Renal cysts. 5. Mild fatty liver. 6. [id number] enlarged prostate gland encroaching base of the urinary bladder. Mild urinary bladder wall thickening, some component which could be related to underdistention though correlate clinically regarding possible component of urinary bladder outlet or cystitis. COMMENTS: Consistent with the [employer]'s Incidental Findings Committee white paper (J Am Lisa Radiol 2018): Any incidental renal lesion less than 1 cm or classified as too small to characterize, or any incidental cystic renal lesion characterized as simple-appearing, is likely benign. No follow-up imaging is recommended for these lesions per consensus recommendations based on imaging criteria.
[2025-03-26 19:59] LABS: Hematocrit 41.4 % (37-53); Hemoglobin 13.40 g/dL (11.27-16.99); Mean Corpuscular HGB Conc 32.4 g/dL (30-55); Mean Corpuscular Hemoglobin 25.9 pg (27-33); Mean Corpuscular Volume 80.1 fl (82-101); Nucleated Red Blood Cells % 0 %; Platelet Count 280 10^3/cmm (157-399); Red Blood Count 5.17 10^6/uL (3.85-5.65); White Blood Count 18.65 10^3/uL (3.29-11.43)
--- NOTE | 2025-03-26 20:06 | ECG_ITS ---
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 Measurements Intervals [place] Rate: 83 P: 89 KS: 138 QRS: 75 QRSD: 115 T: 62 QT: 404 QTc: 477 Interpretive Statements SINUS RHYTHM WITH SINUS ARRHYTHMIA INCOMPLETE RIGHT BUNDLE BRANCH BLOCK [90+ ms QRS DURATION, TERMINAL R IN V1/V2, 40+ ms S IN I/aVL/V4/V5/V6] Compared to ECG 03/14/2025 06:34:46 Incomplete right bundle-branch block now present Ventricular premature complex(es) no longer present Right-axis deviation no longer present Intraventricular conduction delay no longer present Electronically Signed On 03-28-2025 09:58:51 CDT by Uma Patel M.D. [email or web address]
[2025-03-26 20:11] LABS: INR 0.98 (0.8-1.2); Prothrombin Time 13.70 SECONDS (12.1-14.9)
[2025-03-26 20:19] LABS: Glucose Urine UA Negative (Normal); Nitrate Urine Negative (Negative); Specific Gravity, Urine 1.020 (1.005-1.030)
[2025-03-26 20:19] LABS: Lactic Sepsis W/Reflex 1.4 mmol/L (0.5-2.2)
[2025-03-26 20:20] LABS: Alanine Aminotransferase 20 U/L (0-41); Albumin Level 3.7 g/dL (3.5-5.2); Alkaline Phosphatase 74 U/L (40-130); Blood Urea Nitrogen 21 mg/dL (8-23); Calcium 9.7 mg/dL (8.5-10.5); Carbon Dioxide 26 mmol/L (22-29); Chloride 96 mmol/L (98-107); Creatinine Clr Calc Pharmacy 73.4146; Globulin 3.5 g/dL (1.3-4.6); Glucose 117 mg/dL (65-115); Lipase 29 U/L (13-60); Magnesium 1.6 mg/dL (1.7-2.3); Osmolality Calculated 286 mOsm/kg (285-295); Sodium 136 mmol/L (136-145); Total Protein 7.2 g/dL (6.6-8.7)
[2025-03-26 20:21] LABS: Add Urine Microscopic? YES
[2025-03-26 20:22] LABS: Anion Gap 18.0 (5-19); Aspartate Amino Transferase 33 U/L (0-40); Potassium 4.0 mmol/L (3.5-5.1)
[2025-03-26] MEDS: iohexol 350 mg/mL 500 mL Btl (per mL) IV (20:29)
--- NOTE | 2025-03-26 21:17 | W.ED.GIBLEED ---
HPI - GI Bleed General: Chief complaint: GI Bleed Stated complaint: BLOODY STOOL Time Seen by Provider: 03/26/25 19:36 History of Present Illness: Patient is an 79-year-old gentleman reports to the ED with black stools, and not feeling well. He does complain of left lower quadrant abdominal pain as well as his change in stools, and nausea. Pertinent history is abdominal aortic aneurysm in the past. He states the symptoms have been for the last 1 day. He has not had any lightheadedness, dizziness, palpitations. No sensation changes. Associated symptoms: Reports abdominal pain, nausea and vomiting; Denies chills, fever(s), headache(s) or rash Related Data Home Medications ?Medication ?Instructions ?Recorded ?Confirmed clopidogrel 75 mg tablet 75 mg PO DAILY 12/02/19 03/14/25 nitroglycerin 0.4 mg sublingual 0.4 mg sublingual Q5M PRN Chest 12/02/19 03/14/25 tablet (Nitrostat) Pain cholecalciferol (vitamin D3) 125 125 mcg PO DAILY 04/11/22 03/14/25 mcg (5,000 unit) capsule lisinopril 5 mg tablet 5 mg PO DAILY PRN Blood Pressure 05/20/22 03/14/25 acetaminophen 500 mg tablet 500 - 1,000 mg PO Q6H PRN 10/06/23 03/14/25 Pain/fever aluminum-mag hydroxide-simethicone 30 ml PO QID PRN Acid Reflux 10/06/23 03/14/25 200 mg-200 mg-20 mg/5 mL oral susp aluminum-mag hydroxide-simethicone 10 - 20 ml PO QID PRN Acid Reflux 10/06/23 03/14/25 200 mg-200 mg-20 mg/5 mL oral susp (Antacid) diltiazem HCl 120 mg 120 mg PO DAILY 10/06/23 03/14/25 capsule,extended release 24 hr isosorbide mononitrate 60 mg 60 mg PO BID 10/06/23 03/14/25 tablet,extended release 24 hr magnesium hydroxide 400 mg/5 mL 30 ml PO DAILY PRN Constipation 10/06/23 03/14/25 oral suspension (Milk of Magnesia) pantoprazole 40 mg tablet,delayed 40 mg PO DAILY 10/06/23 03/14/25 release ropinirole 2 mg tablet 2 mg PO BEDTIME 10/06/23 03/14/25 tamsulosin 0.4 mg capsule 0.4 mg PO BEDTIME 10/06/23 03/14/25 zinc acetate 50 mg (zinc) capsule 50 mg PO DAILY 10/06/23 03/14/25 bismuth subsalicylate 262 mg/15 mL 524 mg PO Q1H PRN Diarrhea 03/14/25 03/14/25 oral suspension insulin glargine 100 unit/mL (3 5 unit SUBCUT BEDTIME 03/14/25 03/14/25 mL) subcutaneous pen (Lantus Solostar U-100 Insulin) tramadol 50 mg tablet 50 mg PO Q8H PRN Pain 03/14/25 03/14/25 trazodone 100 mg tablet 100 mg PO BEDTIME 03/14/25 03/14/25 anxiety/depression/sleep Previous Rx's ?Medication ?Instructions ?Recorded aspirin 81 mg tablet,delayed 81 mg PO DAILY #90 tabs 02/05/22 release chlorthalidone 25 mg tablet 25 mg PO DAILY #30 tabs 05/01/22 meclizine 25 mg tablet 25 mg PO BID PRN dizziness #30 tabs 05/01/22 albuterol sulfate 90 mcg/actuation 2 inh inhalation Q8H PRN shortness 10/07/23 aerosol inhaler of breath or wheezing #6.7 grams budesonide-formoterol HFA 160 2 puff inhalation BID 12 months 10/07/23 mcg-4.5 mcg/actuation aerosol #10.2 grams inhaler (Symbicort) insulin lispro 100 unit/mL See Rx Instructions .Route 10/07/23 subcutaneous pen (Humalog KwikPen .COMPLEX #15 mL (U-100) Insulin) potassium chloride 20 mEq 20 meq PO DAILY hypokalemia #180 10/07/23 tablet,extended release tabs sitagliptin phosphate 50 mg tablet 50 mg PO DAILY #90 tabs 10/07/23 (Januvia) tiotropium bromide 1.25 2 inh inhalation DAILY #4 grams 10/07/23 mcg/actuation mist for inhalation (Spiriva Respimat) promethazine-DM 6.25 mg-15 mg/5 mL See Rx Instructions .Route 11/10/23 oral syrup .COMPLEX #200 mL metformin 500 mg tablet 500 mg PO BID #180 tabs 12/04/23 gabapentin 300 mg capsule 300 mg PO TID neuropathic pain 04/11/24 #180 caps mupirocin 2 % topical ointment 1 applic topical BID skin 04/11/24 infection #22 grams wheel chair, standard with leg #1 ea 11/22/24 rests risperidone 0.25 mg tablet 0.25 mg PO BID #60 tabs 02/16/25 pregabalin 75 mg capsule (Lyrica) 75 mg PO QDAY neuropathy #30 caps 02/17/25 fluoxetine 40 mg capsule 40 mg PO DAILY anxiety #30 caps 02/22/25 hydrocodone 5 mg-acetaminophen 325 1 tab PO TID pain/muscle tension 1 03/01/25 mg tablet month #90 tabs bed side urinal #1 ea 03/07/25 hydroxyzine HCl 50 mg tablet 50 mg PO TID anxiety or panic 03/14/25 attack #90 tabs ciprofloxacin HCl 500 mg tablet 500 mg PO BID 10 days #20 tabs 03/26/25 metronidazole 500 mg tablet 500 mg PO BID 10 days #20 tabs 03/26/25 ondansetron 4 mg disintegrating 4 mg PO Q8H PRN nausea and 03/26/25 tablet vomiting 4 days #14 tabs pantoprazole 40 mg tablet,delayed 40 mg PO DAILY 4 weeks #30 tabs 03/26/25 release Allergies Allergy/AdvReac Type Severity Reaction Status Date / Time Penicillins Allergy Unknown Unknown Verified 03/07/25 08:36 tirofiban (From Aggrastat Allergy Unknown Unknown Verified 03/07/25 08:36 Concentrate) shellfish derived Allergy ADR-Vomitin Verified 03/07/25 08:36 g lorazepam (From Ativan) AdvReac Severe ADR-Halluci Verified 03/07/25 08:36 nating Review of Systems Const: Denies: fever(s) or chills Card: Denies: chest pain Resp: Denies: dyspnea GI: Reports: abdominal pain, nausea, vomiting and hematochezia : Denies: dysuria, urinary frequency or urinary urgency Musc: Denies: neck pain or back pain Skin/Breast: Denies: rash Neuro: Denies: headache(s) or numbness in extremities Psych: Denies: anxiety or depression PFS ED PFSH: Medical History (Updated 03/26/25 @ 22:30 by SPENCER Bruce) Diabetes Acute hypoxic respiratory failure Influenza A Hypoxemia COPD exacerbation Weakness Myalgia HTN (hypertension) Late latent syphilis PSA elevation Orthostatic dizziness AAA (abdominal aortic aneurysm) Falls Hyperlipidemia Depression Peripheral neuropathy BPH (benign prostatic hyperplasia) GERD (gastroesophageal reflux disease) Tobacco abuse ASHD (arteriosclerotic heart disease) CVA (cerebral vascular accident) COPD (chronic obstructive pulmonary disease) Surgical History History of appendectomy S/P cataract extraction S/P tonsillectomy Family History Father Cancer Mother Diabetes Social History Smoking and tobacco/nicotine status: current every day tobacco/nicotine user cigarettes Packs smoked per day: 0.25 Alcohol intake: former Substance/Drug Use: former Adopted: No Caregiver/support person: No Lives independently: Yes Household members: none Housing: Apartment Marital status: Current occupational status: disabled Pets and animals: No Current gender identity: Male Physical Exam Const: COMMON NORMALS: no acute distress GENERAL APPEARANCE: cooperative and comfortable ORIENTATION/CONSCIOUSNESS: Yes awake, Yes oriented to person, Yes oriented to place and Yes oriented to time HENMT: COMMON NORMALS: normocephalic, atraumatic and hearing grossly normal bilaterally HEAD & SCALP: normocephalic and atraumatic Neck/C-Spine: COMMON NORMALS: full ROM and no lymphadenopathy Chest: COMMONS NORMALS: normal inspection of the chest and normal palpation of entire chest wall Resp: COMMON NORMALS: normal respiratory effort, No retractions, No use of accessory muscles and clear to auscultation bilaterally AUSCULTATION: clear to auscultation bilaterally Cardio: COMMON NORMALS: regular rate, regular rhythm and No murmurs present (Cardio) RATE: regular rate RHYTHM: regular rhythm GI: COMMON NORMALS: Soft to palpation and No hepatosplenomegaly present AUSCULTATION: Yes normoactive bowel sounds PALPATION: Yes Soft to palpation, No Tenderness to palpation present (GI), No Guarding due to palpation present (GI) and Yes No hepatosplenomegaly present RECTAL EXAM: Yes heme positive stool gross blood Extremity: COMMON NORMALS: normal to inspection, capillary refill normal, no clubbing, cyanosis or edema, no calf tenderness and no pedal edema Neuro: SENSORIUM/ORIENTATION: Yes oriented to person, Yes oriented to place and Yes oriented to time Skin: COMMON NORMALS: no rashes or lesions noted GENERAL SKIN EXAM: no rashes or lesions noted Course Vital Signs: Vital signs: Vital Signs Temperature 98.0 F 03/26/25 19:36 Pulse Rate 71 03/26/25 23:54 Respiratory Rate 18 03/26/25 23:00 Blood Pressure 122/77 03/26/25 23:54 Pulse Oximetry 91 03/26/25 23:54 Oxygen Delivery Me thod Room Air 03/26/25 22:00 Oxygen Flow Rate 3 03/26/25 21:30 MDM - GI Bleed Medical Decision Making Patient has heme positive stool that I suspect is secondary to the colitis. On rectal examination this was dark in nature despite patient reporting bright red blood. I suspect this is secondary to his diverticular bleed with associated colitis, and it was initially a bright red blood. He is to follow-up with his primary care physician this week, repeat labs, go to a clear liquid diet, and take his medication as directed. I have asked him to hold his aspirin, and Plavix in the interim. Medical Records I reviewed the patient's medical records. Lab Data I reviewed the patient's lab results. 03/26/25 19:51 03/26/25 19:51 Radiology Impressions Abdomen/Pelvis CT 03/26/25 19:53 IMPRESSION: 1. Diverticulosis of the left and sigmoid colon with findings of non complicated acute diverticulitis of the distal left colon within the upper left pelvis. 2. Infrarenal abdominal aortic aneurysm as noted with prior exam, with maximum transverse diameter of 5.7 cm with today's exam (previous maximum transverse diameter of 5.3 cm). 3. Previous cholecystectomy and appendectomy. 4. Renal cysts. 5. Mild fatty liver. 6. [id number]-dzurvcinhq enlarged prostate gland encroaching base of the urinary bladder. Mild urinary bladder wall thickening, some component which could be related to underdistention though correlate clinically regarding possible component of urinary bladder outlet or cystitis. COMMENTS: Consistent with the [employer]'s Incidental Findings Committee white paper (J Am Lisa Radiol 2018): Any incidental renal lesion less than 1 cm or classified as too small to characterize, or any incidental cystic renal lesion characterized as simple-appearing, is likely benign. No follow-up imaging is recommended for these lesions per consensus recommendations based on imaging criteria. Laboratory Results WBC 18.65 10^3/uL (3.29-11.43) H 03/26/25 19:51 RBC 5.17 10^6/uL (3.85-5.65) 03/26/25 19:51 Hgb 13.40 g/dL (11.27-16.99) 03/26/25 19:51 Hct 41.4 % (37-53) 03/26/25 19:51 MCV 80.1 fl (82-101) L 03/26/25 19:51 MCH 25.9 pg (27-33) L 03/26/25 19:51 MCHC 32.4 g/dL (30-55) 03/26/25 19:51 RDW 16.2 % (12.1-15.1) H 03/26/25 19:51 Plt Count 280 10^3/cmm (157-399) 03/26/25 19:51 MPV 9.5 fL (7.4-10.4) 03/26/25 19:51 Neut % (Auto) 75.5 % 03/26/25 19:51 Lymph % (Auto) 15.4 % 03/26/25 19:51 [place] % (Auto) 6.8 % 03/26/25 19:51 Eos % (Auto) 1.3 % 03/26/25 19:51 Baso % (Auto) 0.4 % 03/26/25 19:51 Neut # (Auto) 14.07 10^3/uL (1.8-7.7) H 03/26/25 19:51 Lymph # (Auto) 2.9 10^3/uL (0.8-4.8) 03/26/25 19:51 [place] # (Auto) 1.3 10^3/uL (0.2-0.9) H 03/26/25 19:51 Eos # (Auto) 0.3 10^3/uL (0.0-0.8) 03/26/25 19:51 Baso # (Auto) 0.1 10^3/uL (0.0-0.1) 03/26/25 19:51 Nucleated RBC % (auto) 0 % 03/26/25 19:51 Nucleated RBCs # 0.0 /100WBC 03/26/25 19:51 PT 13.70 SECONDS (12.1-14.9) 03/26/25 19:51 INR 0.98 (0.8-1.2) 03/26/25 19:51 Sodium 136 mmol/L (136-145) 03/26/25 19:51 Potassium 4.0 mmol/L (3.5-5.1) 03/26/25 19:51 Chloride 96 mmol/L (98-107) L 03/26/25 19:51 Carbon Dioxide 26 mmol/L (22-29) 03/26/25 19:51 Anion Gap 18.0 (5-19) 03/26/25 19:51 BUN 21 mg/dL (8-23) 03/26/25 19:51 Creatinine 0.9 mg/dL (0.7-1.2) 03/26/25 19:51 GFR Calculation Not Reportable 03/26/25 19:51 Glucose 117 mg/dL (65-115) H 03/26/25 19:51 Calculated Osmolality 286 mOsm/kg (285-295) 03/26/25 19:51 Lactic Acid 1.4 mmol/L (0.5-2.2) 03/26/25 19:51 Calcium 9.7 mg/dL (8.5-10.5) 03/26/25 19:51 Magnesium 1.6 mg/dL (1.7-2.3) L 03/26/25 19:51 Total Bilirubin 0.6 mg/dL (0.15-1.2) 03/26/25 19:51 AST 33 U/L (0-40) 03/26/25 19:51 ALT 20 U/L (0-41) 03/26/25 19:51 Alkaline Phosphatase 74 U/L (40-130) 03/26/25 19:51 C-Reactive Protein 53.3 mg/L (0.0-4.9) H 03/26/25 19:51 Total Protein 7.2 g/dL (6.6-8.7) 03/26/25 19:51 Albumin 3.7 g/dL (3.5-5.2) 03/26/25 19:51 Globulin 3.5 g/dL (1.3-4.6) 03/26/25 19:51 Lipase 29 U/L (13-60) 03/26/25 19:51 Urine Color Yellow (Yellow) 03/26/25 20:10 Urine Appearance Clear (CLEAR) 03/26/25 20:10 Urine pH 6.0 (5-7) 03/26/25 20:10 Ur Specific Gamal[place] 1.020 (1.005-1.030) 03/26/25 20:10 Urine Protein Trace (Negative) A 03/26/25 20:10 Urine Glucose (UA) Negative (Normal) 03/26/25 20:10 Urine Ketones Trace (Negative) 03/26/25 20:10 Urine Blood Negative (Negative) 03/26/25 20:10 Urine Nitrate Negative (Negative) 03/26/25 20:10 Urine Bilirubin Negative (Negative) 03/26/25 20:10 Urine Urobilinogen 1.0 mg/dL (Negative) 03/26/25 20:10 Ur Leukocyte Esterase Negative (Negative) 03/26/25 20:10 Urine RBC 0-2 /hpf (0-2) 03/26/25 20:10 Urine WBC 0-5 /hpf (0-5) 03/26/25 20:10 Ur Squamous Epith Cells 0-5 /hpf (0-5) 03/26/25 20:10 Amorphous Sediment Not Reportable 03/26/25 20:10 Urine Bacteria None seen /hpf (NONE) 03/26/25 20:10 Hyaline Casts 1.65 /lpf 03/26/25 20:10 All radiology interpretation(s) finalized by discharge Discharge Plan Discharge Patient Disposition: Home Clinical Impression: Colitis, Melena Condition: Stable Prescriptions: New metronidazole 500 mg tablet 500 mg PO BID 10 Days Qty: 20 0RF ciprofloxacin HCl 500 mg tablet 500 mg PO BID 10 Days Qty: 20 0RF ondansetron 4 mg tablet,disintegrating 4 mg PO Q8H PRN (Reason: nausea and vomiting) 4 Days Qty: 14 0RF pantoprazole 40 mg tablet,delayed release (DR/EC) 40 mg PO DAILY 28 Days Qty: 30 0RF No Action clopidogrel 75 mg tablet 75 mg PO DAILY nitroglycerin [Nitrostat] 0.4 mg tablet, sublingual 0.4 mg SUBLINGUAL Q5M PRN (Reason: Chest Pain) cholecalciferol (vitamin D3) 125 mcg (5,000 unit) capsule 125 mcg PO DAILY fluoxetine 40 mg capsule 40 mg PO DAILY Qty: 30 1RF (DME) bed side urinal See Rx Instructions .Route .MEDSUPPLY Qty: 1 0RF Rx Instructions: As directed gabapentin 300 mg capsule 300 mg PO TID Qty: 180 5RF mupirocin 2 % ointment 1 applic topical BID Qty: 22 1RF (DME) wheel chair, standard with leg rests See Rx Instructions .Route .MEDSUPPLY Qty: 1 0RF Rx Instructions: As directed risperidone 0.25 mg tablet 0.25 mg PO BID Qty: 60 0RF pregabalin [Lyrica] 75 mg capsule 75 mg PO QDAY Qty: 30 0RF promethazine-DM 6.25-15 mg/5 mL syrup See Rx Instructions .ROUTE .COMPLEX Qty: 200 3RF Dose Instruction: TAKE ONE TEASPOONFUL (5 ML'S) BY MOUTH EVERY 6 HOURS NEEDED FOR COUGH Rx Instructions: TAKE ONE TEASPOONFUL (5 ML'S) BY MOUTH EVERY 6 HOURS NEEDED FOR COUGH metformin 500 mg tablet 500 mg PO BID Qty: 180 0RF hydrocodone-acetaminophen 5-325 mg tablet 1 tab PO TID 30 Days Qty: 90 0RF hydroxyzine HCl 50 mg tablet 50 mg PO TID Qty: 90 0RF Rx Instructions: hold if sedated lisinopril 5 mg tablet 5 mg PO DAILY PRN (Reason: Blood Pressure) Rx Instructions: TAKE IF BLOOD PRESSURE IS OVER 120/70 tramadol 50 mg Tablet 50 mg PO Q8H PRN (Reason: Pain) bismuth subsalicylate [Bismuth] 262 mg/15 mL Suspension 524 mg PO Q1H PRN (Reason: Diarrhea) Rx Instructions: do not exceed 8 doses in a 24 hour period trazodone 100 mg tablet 100 mg PO BEDTIME insulin glargine [Lantus Solostar U-100 Insulin] 100 unit/mL (3 mL) insulin pen 5 unit SUBCUT BEDTIME aspirin 81 mg Tablet,Delayed Release (Dr/Ec) 81 mg PO DAILY Qty: 90 0RF chlorthalidone 25 mg Tablet 25 mg PO DAILY Qty: 30 0RF meclizine 25 mg tablet 25 mg PO BID PRN (Reason: dizziness) Qty: 30 0RF zinc acetate 50 mg (zinc) Capsule 50 mg PO DAILY acetaminophen 500 mg Tablet 500 - 1,000 mg PO Q6H PRN (Reason: Pain/fever) isosorbide mononitrate 60 mg tablet extended release 24 hr 60 mg PO BID tamsulosin 0.4 mg capsule 0.4 mg PO BEDTIME ropinirole 2 mg tablet 2 mg PO BEDTIME pantoprazole 40 mg tablet,delayed release (DR/EC) 40 mg PO DAILY diltiazem HCl 120 mg capsule,extended release 24hr 120 mg PO DAILY alum-mag hydroxide-simeth [Antacid] 200-200-20 mg/5 mL Suspension 10 - 20 ml PO QID PRN (Reason: Acid Reflux) Rx Instructions: administer between meals and at bedtime magnesium hydroxide [Milk of Magnesia] 400 mg/5 mL Suspension 30 ml PO DAILY PRN (Reason: Constipation) alum-mag hydroxide-simeth 200-200-20 mg/5 mL Suspension 30 ml PO QID PRN (Reason: Acid Reflux) Rx Instructions: administer between meals and at bedtime Spiriva Respimat 1.25 mcg/actuation mist 2 inh inhalation DAILY Qty: 4 5RF albuterol sulfate 90 mcg/actuation HFA aerosol inhaler 2 inh inhalation Q8H PRN (Reason: shortness of breath or wheezing) Qty: 6.7 3RF budesonide-formoterol [Symbicort] 160-4.5 mcg/actuation HFA aerosol inhaler 2 puff INHALATION BID 360 Days Qty: 10.2 3RF potassium chloride 20 mEq tablet extended release 20 meq PO DAILY Qty: 180 1RF Januvia 50 mg tablet 50 mg PO DAILY Qty: 90 3RF insulin lispro [Humalog KwikPen Insulin] 100 unit/mL insulin pen See Rx Instructions .ROUTE .COMPLEX Qty: 15 4RF Rx Instructions: Blood sugar 150-199 please take 3 units Blood sugar 200 -249 please take 5 units Blood sugar 250-299 please take 7 units Blood sugar 300-349 please take 10 units 350-399 please take 12 units Above 400 take 16 units and notify your doctor Discharge Orders: Discharge ED (Routine); Ordered 03/26/25 Ordered By: Paige Peng Referrals: Joe Bustillos, DO [Primary Care Provider, [facility]] Discharge Diet: Clear Liquid Discharge Activity: Resume usual activity Patient Instructions: Full Liquid Diet, Clear Liquid Diet (ED), Colitis (ED), Patient Portal & Tonya Instructions Activity Restrictions/Additional Instructions: Clear liquid diet for 24 hours. If you are tolerating a clear liquid diet you can advance to full liquid diet for the next 3 days with a total of 4 days. After the full liquid diet for 3 additional days, you may advance to a bland diet. If you have issues with any of the steps you need to return to a clear liquid diet Return to ED for ongoing issues with abdominal pain, nausea, or vomiting, fever greater than 100.4 ?F You will need follow-up with your doctor this week, call on Thursday for appointment Take all medication as directed. Do not drink alcohol on this medication or will make you a special kind of ill. Add probiotics daily to avoid infectious diarrhea or utilize active culture yogurt. Your abdominal aneurysm is 5.7 cm, previously 5.3 cm. As we discussed, I would like for you to follow-up with your doctor, and discuss going to a vascular surgeon for endograft repair. Please follow-up with your doctor to discuss repair of this aneurysm. When you follow-up with your regular doctor, as you call for an appointment on Thursday, repeat your CBC to make sure your blood count is okay. Print Language: Jamaican Coding Level of Care Code ED Cardiothoracic Physiotherapist for Ledy Hernandez
[2025-03-26] MEDS: pantoprazole 40 mg SDV 80 MG IVP (21:54)
[2025-03-26] MEDS: metroNIDAZOLE IV 500 MG/100 ML PREMIX 100 MG IV (22:32)
== END 2025-03-26 23:56 | disposition home or self-care (01) ==
PROVIDERS: Emergency Provider Physician Assistant; PCP Family Medicine
DX: K52.9 Noninfective gastroenteritis and colitis, unspecified (principal); K92.1 Melena; Z79.02 Long term (current) use of antithrombotics/antiplatelets; Z79.4 Long term (current) use of insulin; Z79.82 Long term (current) use of aspirin; F17.210 Nicotine dependence, cigarettes, uncomplicated; J44.9 Chronic obstructive pulmonary disease, unspecified; E78.5 Hyperlipidemia, unspecified; I10 Essential (primary) hypertension; Z86.73 Personal history of transient ischemic attack (TIA), and cerebral infarction without residual deficits
CPT/HCPCS: 74177; 80053; 81001; 83605; 83690; 83735; 85025; 85610; 86140; 93005; 96374; 96375; 99285; J0744; J2470; J3490

== ENCOUNTER → 2025-04-04 10:02 | Outpatient (BNVA) | payer MEDICARE, MEDICAID, SELFPAY | PROVIDERS: PCP Family Medicine; Visit Provider Family Medicine | DX: K52.9 Noninfective gastroenteritis and colitis, unspecified (principal) | CPT/HCPCS: 80053; 85025; 86140 ==

== ENCOUNTER → 2025-05-22 11:44 | Outpatient (BNVA) | payer MEDICARE, MEDICAID, SELFPAY | PROVIDERS: PCP Family Medicine; Visit Provider Family Medicine | DX: F41.9 Anxiety disorder, unspecified (principal); E11.9 Type 2 diabetes mellitus without complications; M79.2 Neuralgia and neuritis, unspecified; E03.9 Hypothyroidism, unspecified | CPT/HCPCS: 80053; 82607; 83036; 84443; 85025 ==

== ENCOUNTER 2025-07-04 09:26 | Inpatient (IN) | payer MEDICARE, MEDICAID, SELFPAY ==
[2025-07-04] VITALS (69 sets, daily range): BP systolic 112–170; BP diastolic 60–126; PULSE 93–121; RESP 14–34; TEMP 36.8–38.8; O2SAT 86–98; BMI 24.3; BMI 25.2
--- NOTE | 2025-07-04 09:45 | XRR_ITS ---
PROCEDURE INFORMATION: Exam: XR Chest Exam date and time: 07/04/2025 10:03 AM Age: 80 years old Clinical indication: Other: AMS TECHNIQUE: Imaging protocol: Radiologic exam of the chest. Views: 1 view. COMPARISON: CR XR chest 1V portable [id number] 03/14/2025 07:09 AM FINDINGS: Lungs: New right middle lobe opacity when compared with the x-ray from 03/14/2025. Pleural spaces: Unremarkable. No pleural effusion. No pneumothorax. Heart/Mediastinum: Cardiac size and configuration is stable. Vasculature: Atherosclerotic vascular disease. Bones/joints: Degenerative changes of the spine. Degenerative changes of the shoulders and AC joints. Osteopenia. XR/XR chest 1V portable [id number] IMPRESSION: New right middle lobe opacity when compared with the x-ray from 03/14/2025. Appearance is concerning for pneumonia.
--- NOTE | 2025-07-04 09:45 | CT_ITS ---
WS: [id number] CT HEAD TECHNIQUE: Noncontrast CT of the head obtained from the skullbase to the vertex. CLINICAL INFORMATION: AMS COMPARISON: 04/24/2022 DLP: 1141.[address] scans at [facility] use at least one of these dose optimization techniques: automated exposure control; mA and/or kV adjustment per patient size (includes targeted exams where dose is matched to clinical indication); or iterative reconstruction. FINDINGS: No evidence of intracranial hemorrhage or mass effect. Ventricular system and basal cisterns are patent. Moderate small vessel changes with moderate parenchymal volume loss. No extra-axial fluid collections. No evidence of mass or mass effect. Vascular calcification. Numerous tiny chronic lacunar infarcts in the basal ganglia similar to prior studies. Also prominent perivascular spaces in the basal ganglia. Tiny chronic lacunar infarct RIGHT caudate. Chronic lacunar infarct LEFT cerebellum. Mild mucosal thickening in the paranasal sinuses. Mastoid air cells are well aerated. CT/CT head wo con* [id number] IMPRESSION: 1. No evidence of intracranial hemorrhage or mass effect. 2. Moderate small vessel changes with moderate parenchymal volume loss. 3. Vascular calcification. 4. No acute intracranial findings.
--- NOTE | 2025-07-04 09:47 | ECG_ITS ---
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 Measurements Intervals [place] Rate: 91 P: 42 MD: 162 QRS: 23 QRSD: 106 T: 62 QT: 389 QTc: 481 Interpretive Statements SINUS RHYTHM Compared to ECG 03/26/2025 20:06:50 Sinus arrhythmia no longer present Incomplete right bundle-branch block no longer present Electronically Signed On 07-04-2025 19:38:24 CDT by Uma Patel M.[email or web address]
--- NOTE | 2025-07-04 09:47 | W.ED.AMS ---
Documented by User: SPENCER Negrete 07/04/25 12:45 HPI - Altered Mental Status General: Chief Complaint: Altered Mental Status Stated Complaint: Weakness Time Seen by Provider: 07/04/25 09:28 Source: patient and EMS Mode of arrival: EMS Limitations: altered mental status History of Present Illness: Patient is an 80-year-old male who presents to the ED today via EMS from his halfway of [facility] for complaints of altered mental status and weakness. detention report states that he is normally alert and oriented to people, place, time and normally ambulates around the halfway with minimal assistance. They states over the weekend they began noticing a decline. Upon arrival patient can tell me his name. He feels like the year is 1978. He does tell me he believes he is in [place]. He is altered and not a good historian. He does not overly complain of pain anywhere. No obvious focal neurologic deficits. He does follow commands fairly well (lift your arm/leg, tell me your name, etc). He cannot tell me anything regarding his past medical history. He arrives with stable vital signs. detention states he does intermittently wear oxygen. Looking at previous documentation PMH is significant for anxiety, diabetes, COPD, HTN, HLD, depression, BPH, GERD, atherosclerotic heart disease, CVA, AAA MD complaint: altered mental status Onset (ago): day(s) Timing confirmed by: caregiver Severity: severe Consistency of symptoms: Getting Worse Associated symptoms: Reports no associated symptoms Related Data Home Medications ?Medication ?Instructions ?Recorded ?Confirmed clopidogrel 75 mg tablet 75 mg PO DAILY 12/02/19 03/14/25 nitroglycerin 0.4 mg sublingual 0.4 mg sublingual Q5M PRN Chest 12/02/19 03/14/25 tablet (Nitrostat) Pain cholecalciferol (vitamin D3) 125 125 mcg PO DAILY 04/11/22 03/14/25 mcg (5,000 unit) capsule lisinopril 5 mg tablet 5 mg PO DAILY PRN Blood Pressure 05/20/22 03/14/25 acetaminophen 500 mg tablet 500 - 1,000 mg PO Q6H PRN 10/06/23 03/14/25 Pain/fever aluminum-mag hydroxide-simethicone 30 ml PO QID PRN Acid Reflux 10/06/23 03/14/25 200 mg-200 mg-20 mg/5 mL oral susp aluminum-mag hydroxide-simethicone 10 - 20 ml PO QID PRN Acid Reflux 10/06/23 03/14/25 200 mg-200 mg-20 mg/5 mL oral susp (Antacid) diltiazem HCl 120 mg 120 mg PO DAILY 10/06/23 03/14/25 capsule,extended release 24 hr isosorbide mononitrate 60 mg 60 mg PO BID 10/06/23 03/14/25 tablet,extended release 24 hr magnesium hydroxide 400 mg/5 mL 30 ml PO DAILY PRN Constipation 10/06/23 03/14/25 oral suspension (Milk of Magnesia) pantoprazole 40 mg tablet,delayed 40 mg PO DAILY 10/06/23 03/14/25 release tamsulosin 0.4 mg capsule 0.4 mg PO BEDTIME 10/06/23 03/14/25 zinc acetate 50 mg (zinc) capsule 50 mg PO DAILY 10/06/23 03/14/25 bismuth subsalicylate 262 mg/15 mL 524 mg PO Q1H PRN Diarrhea 03/14/25 03/14/25 oral suspension insulin glargine 100 unit/mL (3 5 unit SUBCUT BEDTIME 03/14/25 03/14/25 mL) subcutaneous pen (Lantus Solostar U-100 Insulin) tramadol 50 mg tablet 50 mg PO Q8H PRN Pain 03/14/25 03/14/25 trazodone 100 mg tablet 100 mg PO BEDTIME 03/14/25 03/14/25 anxiety/depression/sleep Previous Rx's ?Medication ?Instructions ?Recorded aspirin 81 mg tablet,delayed 81 mg PO DAILY #90 tabs 02/05/22 release chlorthalidone 25 mg tablet 25 mg PO DAILY #30 tabs 05/01/22 meclizine 25 mg tablet 25 mg PO BID PRN dizziness #30 tabs 05/01/22 albuterol sulfate 90 mcg/actuation 2 inh inhalation Q8H PRN shortness 10/07/23 aerosol inhaler of breath or wheezing #6.7 grams budesonide-formoterol HFA 160 2 puff inhalation BID 12 months 10/07/23 mcg-4.5 mcg/actuation aerosol #10.2 grams inhaler (Symbicort) insulin lispro 100 unit/mL See Rx Instructions .Route 10/07/23 subcutaneous pen (Humalog KwikPen .COMPLEX #15 mL (U-100) Insulin) potassium chloride 20 mEq 20 meq PO DAILY hypokalemia #180 10/07/23 tablet,extended release tabs sitagliptin phosphate 50 mg tablet 50 mg PO DAILY #90 tabs 10/07/23 (Januvia) tiotropium bromide 1.25 2 inh inhalation DAILY #4 grams 10/07/23 mcg/actuation mist for inhalation (Spiriva Respimat) promethazine-DM 6.25 mg-15 mg/5 mL See Rx Instructions .Route 11/10/23 oral syrup .COMPLEX #200 mL mupirocin 2 % topical ointment 1 applic topical BID skin 04/11/24 infection #22 grams wheel chair, standard with leg #1 ea 11/22/24 rests fluoxetine 40 mg capsule 40 mg PO DAILY anxiety #30 caps 02/22/25 bed side urinal #1 ea 03/07/25 hydroxyzine HCl 50 mg tablet 50 mg PO TID anxiety or panic 03/14/25 attack #90 tabs pregabalin 75 mg capsule (Lyrica) 75 mg PO QDAY neuropathy #30 caps 05/09/25 gabapentin 300 mg capsule 300 mg PO BID neuropathic pain #60 06/12/25 caps hydrocodone 5 mg-acetaminophen 325 1 tab PO TID pain/muscle tension 1 07/03/25 mg tablet month #90 tabs Allergies Allergy/AdvReac Type Severity Reaction Status Date / Time Penicillins Allergy Unknown Unknown Verified 06/12/25 10:22 tirofiban (From Aggrastat Allergy Unknown Unknown Verified 06/12/25 10:22 Concentrate) shellfish derived Allergy ADR-Vomitin Verified 06/12/25 10:22 g lorazepam (From Ativan) AdvReac Severe ADR-Halluci Verified 06/12/25 10:22 kayla Review of Systems General: Reports: ROS unobtainable due to medical condition and ROS unobtainable due to mental status [facility] ED PFSH: Medical History Diabetes Acute hypoxic respiratory failure Influenza A Hypoxemia COPD exacerbation Weakness Myalgia HTN (hypertension) Late latent syphilis PSA elevation Orthostatic dizziness AAA (abdominal aortic aneurysm) Falls Hyperlipidemia Depression Peripheral neuropathy BPH (benign prostatic hyperplasia) GERD (gastroesophageal reflux disease) Tobacco abuse ASHD (arteriosclerotic heart disease) CVA (cerebral vascular accident) COPD (chronic obstructive pulmonary disease) Surgical History History of appendectomy S/P cataract extraction S/P tonsillectomy Family History Father Cancer Mother Diabetes Social History Smoking and tobacco/nicotine status: current every day tobacco/nicotine user cigarettes Packs smoked per day: 0.25 Alcohol intake: former Substance/Drug Use: former Adopted: No Caregiver/support person: No Lives independently: Yes Household members: none Housing: Apartment Marital status: Current occupational status: disabled Pets and animals: No Current gender identity: Male Physical Exam Const: COMMON NORMALS: no acute distress and alert EXAM LIMITATIONS: altered mental status GENERAL APPEARANCE: cooperative ORIENTATION/CONSCIOUSNESS: Yes awake and Yes oriented to person HENMT: COMMON NORMALS: normocephalic and atraumatic HEAD & SCALP: normal to inspection, normocephalic and atraumatic Eye: COMMON NORMALS: Equal, round and reactive pupils present and EOMs intact bilaterally GENERAL EYE: appearance normal, both eyes and all related structures and normal light reflex PUPIL: Yes Equal, round and reactive pupils present DIRECT OPHTHALMOSCOPY: Yes normal light reflex Neck/C-Spine: COMMON NORMALS: no lymphadenopathy, no meningeal signs and no JVD Resp: COMMON NORMALS: normal respiratory effort and clear to auscultation bilaterally AUSCULTATION: clear to auscultation bilaterally Cardio: COMMON NORMALS: no JVD, regular rate and regular rhythm RATE: regular rate RHYTHM: regular rhythm GI: COMMON NORMALS: Normal to inspection, nondistended, normoactive bowel sounds present, Soft to palpation and no masses PALPATION: Yes Soft to palpation : COMMON NORMALS: Yes no CVA tenderness BLADDER/KIDNEY EXAM: Yes no CVA tenderness MEATUS: other (meatal stenosis) Back/Pelvis: COMMON NORMALS: no CVA tenderness Extremity: COMMON NORMALS: full ROM, capillary refill normal, no clubbing, cyanosis or edema, no calf tenderness and no pedal edema GENERAL: Yes normal exam except as noted OTHER: pt is able to lift both legs off table on command; he does not seem to have any discomfort with passive ROM of UE/LEs Neuro: COMMON NORMALS: moves all extremities and no focal motor deficits SENSORIUM/ORIENTATION: Yes alert and Yes oriented to person MENINGEAL SIGNS: Yes no meningeal signs GAIT: Yes Unable to assess gait Skin: COMMON NORMALS: no rashes or lesions noted GENERAL SKIN EXAM: no rashes or lesions noted Course Vital Signs: Vital signs: Vital Signs Temperature 98.3 F 07/04/25 09:29 Pulse Rate 110 H 07/04/25 14:45 Respiratory Rate 28 H 07/04/25 14:45 Blood Pressure 146/73 07/04/25 14:45 Pulse Oximetry 93 07/04/25 14:30 Oxygen Delivery Me thod Nasal Cannula 07/04/25 11:30 Oxygen Flow Rate 2 07/04/25 11:30 MDM - Altered Mental Status Medical Decision Making Patient is an 80-year-old male here from [facility] with a history of worsening altered mental status and weakness that staff began noticing over the weekend. Family was apparently contacted over the weekend but they did not want him medically seen at that time. Symptoms reportedly were much worse this morning thus prompting the halfway to send him to the emergency department for evaluation. Here, patient is alert and oriented to his name. He feels like he is in [place], [place] with a year of 1978. His vital signs are stable apart from his oxygen does drop to 88-90% when sleeping. According to halfway report, he does intermittently wear oxygen. On his labs today, he was found to have significant leukocytosis with a white count of 33.4 with a significant left shift. His lactic is normal at 1.6. On his chemistry, he was found to have elevations to his BUN/CR 36/1.3. Baseline creatinine is close to 1.0. He had significant elevations to his CRP at 312 and procalcitonin at 4.79. His urine appeared grossly infected with a dark cloudy appearance and positive for nitrates, 3+ leukocyte esterase, 51-100 WBCs. He was also found to have a right middle lobe pneumonia. Head CT obtained due to AMS which was unremarkable. Patient was started on a septic fluid bolus, blood cultures obtained, he had an allergy to penicillins was started on vancomycin and meropenem. Obtained CT scan of abdomen/pelvic which showed a markedly enlarged prostate with bladder outlet obstruction-dee catheter was placed. Spoke to Dr. Mosher who will admit patient. Dr. Villarreal aware of patient and will place admit orders. Medical Records I reviewed the patient's medical records. Lab Data I reviewed the patient's lab results. 07/04/25 10:02 07/04/25 10:02 Radiology Impressions Chest X-Ray 07/04/25 09:45 IMPRESSION: New right middle lobe opacity when compared with the x-ray from 03/14/2025. Appearance is concerning for pneumonia. Head CT 07/04/25 09:45 IMPRESSION: 1. No evidence of intracranial hemorrhage or mass effect. 2. Moderate small vessel changes with moderate parenchymal volume loss. 3. Vascular calcification. 4. No acute intracranial findings. Abdomen/Pelvis CT 07/04/25 10:58 IMPRESSION: 1. Markedly enlarged prostate with bladder outlet obstruction. Recommend correlation PSA. 2. No hydronephrosis in either kidney. 3. Stable infrarenal abdominal aortic aneurysm described above. 4. No other significant changes. Laboratory Results WBC 33.40 10^3/uL (3.29-11.43) H* 07/04/25 10:02 RBC 4.60 10^6/uL (3.85-5.65) 07/04/25 10:02 Hgb 11.90 g/dL (11.27-16.99) 07/04/25 10:02 Hct 35.9 % (37-53) L 07/04/25 10:02 MCV 78.0 fl (82-101) L 07/04/25 10:02 MCH 25.9 pg (27-33) L 07/04/25 10:02 MCHC 33.1 g/dL (30-55) 07/04/25 10:02 RDW 16.2 % (12.1-15.1) H 07/04/25 10:02 Plt Count 242 10^3/cmm (157-399) 07/04/25 10:02 MPV 9.4 fL (7.4-10.4) 07/04/25 10:02 Neut % (Auto) 92.3 % 07/04/25 10:02 Lymph % (Auto) 3.1 % 07/04/25 10:02 [place] % (Auto) 3.3 % 07/04/25 10:02 Eos % (Auto) 0.0 % 07/04/25 10:02 Baso % (Auto) 0.1 % 07/04/25 10:02 Neut # (Auto) 30.81 10^3/uL (1.8-7.7) H 07/04/25 10:02 Lymph # (Auto) 1.0 10^3/uL (0.8-4.8) 07/04/25 10:02 [place] # (Auto) 1.1 10^3/uL (0.2-0.9) H 07/04/25 10:02 Eos # (Auto) 0.0 10^3/uL (0.0-0.8) 07/04/25 10:02 Baso # (Auto) 0.1 10^3/uL (0.0-0.1) 07/04/25 10:02 Nucleated RBC % (auto) 0 % 07/04/25 10:02 Nucleated RBCs # 0.0 /100WBC 07/04/25 10:02 PT 15.90 SECONDS (12.1-14.9) H 07/04/25 10:02 INR 1.19 (0.8-1.2) 07/04/25 10:02 APTT 39.2 SECONDS (23.9-36.7) H 07/04/25 10:02 Sodium 135 mmol/L (136-145) L 07/04/25 10:02 Potassium 4.1 mmol/L (3.5-5.1) 07/04/25 10:02 Chloride 94 mmol/L (98-107) L 07/04/25 10:02 Carbon Dioxide 26 mmol/L (22-29) 07/04/25 10:02 Anion Gap 19.1 (5-19) H 07/04/25 10:02 BUN 36 mg/dL (8-23) H 07/04/25 10:02 Creatinine 1.3 mg/dL (0.7-1.2) H 07/04/25 10:02 GFR Calculation Not Reportable 07/04/25 10:02 Glucose 156 mg/dL (65-115) H 07/04/25 10:02 POC Glucose 184 mg/dL (70-110) H 07/04/25 10:28 Calculated Osmolality 292 mOsm/kg (285-295) 07/04/25 10:02 Lactic Acid 1.6 mmol/L (0.5-2.2) 07/04/25 10:02 Calcium 9.7 mg/dL (8.5-10.5) 07/04/25 10:02 Total Bilirubin 1.5 mg/dL (0.15-1.2) H 07/04/25 10:02 AST 14 U/L (0-40) 07/04/25 10:02 ALT 10 U/L (0-41) 07/04/25 10:02 Alkaline Phosphatase 127 U/L (40-130) 07/04/25 10:02 C-Reactive Protein 312.3 mg/L (0.0-4.9) H 07/04/25 10:02 NT-Pro-B Natriuret Pep 2104 pg/mL (0-450) H 07/04/25 10:02 NT-Pro-B Natriuret Pep Cancelled 07/04/25 10:02 Total Protein 7.5 g/dL (6.6-8.7) 07/04/25 10:02 Albumin 3.4 g/dL (3.5-5.2) L 07/04/25 10:02 Globulin 4.1 g/dL (1.3-4.6) 07/04/25 10:02 Procalcitonin 4.79 ng/mL (0-0.5) H 07/04/25 10:02 Urine Color Dark yellow (Yellow) A 07/04/25 10:00 Urine Appearance Cloudy (CLEAR) A 07/04/25 10:00 Urine pH 5.5 (5-7) 07/04/25 10:00 Ur Specific [place] 1.022 (1.005-1.030) 07/04/25 10:00 Urine Protein 1+ (Negative) A 07/04/25 10:00 Urine Glucose (UA) Negative (Normal) 07/04/25 10:00 Urine Ketones 1+ (Negative) H 07/04/25 10:00 Urine Blood 1+ (Negative) A 07/04/25 10:00 Urine Nitrate Positive (Negative) A 07/04/25 10:00 Urine Bilirubin 1+ (Negative) H 07/04/25 10:00 Urine Urobilinogen 1.0 mg/dL (Negative) 07/04/25 10:00 Ur Leukocyte Esterase 3+ (Negative) A 07/04/25 10:00 Urine RBC 5-10 /hpf (0-2) H 07/04/25 10:00 Urine WBC 51-100 /hpf (0-5) H 07/04/25 10:00 Ur Squamous Epith Cells 5-10 /hpf (0-5) H 07/04/25 10:00 Amorphous Sediment Not Reportable 07/04/25 10:00 Urine Bacteria 3+ /hpf (NONE) H 07/04/25 10:00 Urine Mucus 1+ /hpf 07/04/25 10:00 Influenza A (PCR) Negative (Negative) 07/04/25 10:33 Influenza Type B (PCR) Negative (Negative) 07/04/25 10:33 RSV (PCR) Negative (Negative) 07/04/25 10:33 SARS-CoV-2 (PCR) Negative (Negative) 07/04/25 10:33 All radiology interpretation(s) finalized by discharge Discharge Plan Discharge Patient Disposition: Admitted As Inpatient Admit Provider: Johnson Mosher Clinical Impression: Right middle lobe pneumonia Qualifiers: Pneumonia type: due to unspecified organism Qualified Code(s): J18.9 - Pneumonia, unspecified organism Acute cystitis Qualifiers: Hematuria presence: with hematuria Qualified Code(s): N30.01 - Acute cystitis with hematuria AMS (altered mental status) Qualifiers: Altered mental status type: unspecified Qualified Code(s): R41.82 - Altered mental status, unspecified Condition: Stable Coding Level of Care Code ED [employer] for Chg Fwd Documented by User: Adolfo Villarreal DO 07/04/25 15:08 HPI - Altered Mental Status General: Chief Complaint: Altered Mental Status Stated Complaint: Weakness Time Seen by Provider: 07/04/25 09:28 Related Data Home Medications ?Medication ?Instructions ?Recorded ?Confirmed clopidogrel 75 mg tablet 75 mg PO DAILY 12/02/19 03/14/25 nitroglycerin 0.4 mg sublingual 0.4 mg sublingual Q5M PRN Chest 12/02/19 03/14/25 tablet (Nitrostat) Pain cholecalciferol (vitamin D3) 125 125 mcg PO DAILY 04/11/22 03/14/25 mcg (5,000 unit) capsule lisinopril 5 mg tablet 5 mg PO DAILY PRN Blood Pressure 05/20/22 03/14/25 acetaminophen 500 mg tablet 500 - 1,000 mg PO Q6H PRN 10/06/23 03/14/25 Pain/fever aluminum-mag hydroxide-simethicone 30 ml PO QID PRN Acid Reflux 10/06/23 03/14/25 200 mg-200 mg-20 mg/5 mL oral susp aluminum-mag hydroxide-simethicone 10 - 20 ml PO QID PRN Acid Reflux 10/06/23 03/14/25 200 mg-200 mg-20 mg/5 mL oral susp (Antacid) diltiazem HCl 120 mg 120 mg PO DAILY 10/06/23 03/14/25 capsule,extended release 24 hr isosorbide mononitrate 60 mg 60 mg PO BID 10/06/23 03/14/25 tablet,extended release 24 hr magnesium hydroxide 400 mg/5 mL 30 ml PO DAILY PRN Constipation 10/06/23 03/14/25 oral suspension (Milk of Magnesia) pantoprazole 40 mg tablet,delayed 40 mg PO DAILY 10/06/23 03/14/25 release tamsulosin 0.4 mg capsule 0.4 mg PO BEDTIME 10/06/23 03/14/25 zinc acetate 50 mg (zinc) capsule 50 mg PO DAILY 10/06/23 03/14/25 bismuth subsalicylate 262 mg/15 mL 524 mg PO Q1H PRN Diarrhea 03/14/25 03/14/25 oral suspension insulin glargine 100 unit/mL (3 5 unit SUBCUT BEDTIME 03/14/25 03/14/25 mL) subcutaneous pen (Lantus Solostar U-100 Insulin) tramadol 50 mg tablet 50 mg PO Q8H PRN Pain 03/14/25 03/14/25 trazodone 100 mg tablet 100 mg PO BEDTIME 03/14/25 03/14/25 anxiety/depression/sleep Previous Rx's ?Medication ?Instructions ?Recorded aspirin 81 mg tablet,delayed 81 mg PO DAILY #90 tabs 02/05/22 release chlorthalidone 25 mg tablet 25 mg PO DAILY #30 tabs 05/01/22 meclizine 25 mg tablet 25 mg PO BID PRN dizziness #30 tabs 05/01/22 albuterol sulfate 90 mcg/actuation 2 inh inhalation Q8H PRN shortness 10/07/23 aerosol inhaler of breath or wheezing #6.7 grams budesonide-formoterol HFA 160 2 puff inhalation BID 12 months 10/07/23 mcg-4.5 mcg/actuation aerosol #10.2 grams inhaler (Symbicort) insulin lispro 100 unit/mL See Rx Instructions .Route 10/07/23 subcutaneous pen (Humalog KwikPen .COMPLEX #15 mL (U-100) Insulin) potassium chloride 20 mEq 20 meq PO DAILY hypokalemia #180 10/07/23 tablet,extended release tabs sitagliptin phosphate 50 mg tablet 50 mg PO DAILY #90 tabs 10/07/23 (Januvia) tiotropium bromide 1.25 2 inh inhalation DAILY #4 grams 10/07/23 mcg/actuation mist for inhalation (Spiriva Respimat) promethazine-DM 6.25 mg-15 mg/5 mL See Rx Instructions .Route 11/10/23 oral syrup .COMPLEX #200 mL mupirocin 2 % topical ointment 1 applic topical BID skin 04/11/24 infection #22 grams wheel chair, standard with leg #1 ea 11/22/24 rests fluoxetine 40 mg capsule 40 mg PO DAILY anxiety #30 caps 02/22/25 bed side urinal #1 ea 03/07/25 hydroxyzine HCl 50 mg tablet 50 mg PO TID anxiety or panic 03/14/25 attack #90 tabs pregabalin 75 mg capsule (Lyrica) 75 mg PO QDAY neuropathy #30 caps 05/09/25 gabapentin 300 mg capsule 300 mg PO BID neuropathic pain #60 06/12/25 caps hydrocodone 5 mg-acetaminophen 325 1 tab PO TID pain/muscle tension 1 07/03/25 mg tablet month #90 tabs Allergies Allergy/AdvReac Type Severity Reaction Status Date / Time Penicillins Allergy Unknown Unknown Verified 06/12/25 10:22 tirofiban (From Aggrastat Allergy Unknown Unknown Verified 06/12/25 10:22 Concentrate) shellfish derived Allergy ADR-Vomitin Verified 06/12/25 10:22 g lorazepam (From Ativan) AdvReac Severe ADR-Halluci Verified 06/12/25 10:22 kayla [facility] ED PFS: Medical History Diabetes Acute hypoxic respiratory failure Influenza A Hypoxemia COPD exacerbation Weakness Myalgia HTN (hypertension) Late latent syphilis PSA elevation Orthostatic dizziness AAA (abdominal aortic aneurysm) Falls Hyperlipidemia Depression Peripheral neuropathy BPH (benign prostatic hyperplasia) GERD (gastroesophageal reflux disease) Tobacco abuse ASHD (arteriosclerotic heart disease) CVA (cerebral vascular accident) COPD (chronic obstructive pulmonary disease) Surgical History History of appendectomy S/P cataract extraction S/P tonsillectomy Family History Father Cancer Mother Diabetes Social History Smoking and tobacco/nicotine status: current every day tobacco/nicotine user cigarettes Packs smoked per day: 0.25 Alcohol intake: former Substance/Drug Use: former Adopted: No Caregiver/support person: No Lives independently: Yes Household members: none Housing: Apartment Marital status: Current occupational status: disabled Pets and animals: No Current gender identity: Male Course Vital Signs: Vital signs: Vital Signs Temperature 98.3 F 07/04/25 09:29 Pulse Rate 110 H 07/04/25 14:45 Respiratory Rate 28 H 07/04/25 14:45 Blood Pressure 146/73 07/04/25 14:45 Pulse Oximetry 93 07/04/25 14:30 Oxygen Delivery Me thod Nasal Cannula 07/04/25 11:30 Oxygen Flow Rate 2 07/04/25 11:30 MDM - Altered Mental Status Medical Decision Making Patient is an 80-year-old male here from [facility] with a history of worsening altered mental status and weakness that staff began noticing over the weekend. Family was apparently contacted over the weekend but they did not want him medically seen at that time. Symptoms reportedly were much worse this morning thus prompting the halfway to send him to the emergency department for evaluation. Here, patient is alert and oriented to his name. He feels like he is in [place], [place] with a year of 1978. His vital signs are stable apart from his oxygen does drop to 88-90% when sleeping. According to halfway report, he does intermittently wear oxygen. On his labs today, he was found to have significant leukocytosis with a white count of 33.4 with a significant left shift. His lactic is normal at 1.6. On his chemistry, he was found to have elevations to his BUN/CR 36/1.3. Baseline creatinine is close to 1.0. He had significant elevations to his CRP at 312 and procalcitonin at 4.79. His urine appeared grossly infected with a dark cloudy appearance and positive for nitrates, 3+ leukocyte esterase, 51-100 WBCs. He was also found to have a right middle lobe pneumonia. Head CT obtained due to AMS which was unremarkable. Patient was started on a septic fluid bolus, blood cultures obtained, he had an allergy to penicillins was started on vancomycin and meropenem. Obtained CT scan of abdomen/pelvic which showed a markedly enlarged prostate with bladder outlet obstruction-dee catheter was placed. Spoke to Dr. Mosher who will admit patient. Dr. Villarreal aware of patient and will place admit orders. Chart reviewed and patient discussed with midlevel. Agree with assessment and plan. Lab Data 07/04/25 10:02 07/04/25 10:02 Radiology Impressions Chest X-Ray 07/04/25 09:45 IMPRESSION: New right middle lobe opacity when compared with the x-ray from 03/14/2025. Appearance is concerning for pneumonia. Head CT 07/04/25 09:45 IMPRESSION: 1. No evidence of intracranial hemorrhage or mass effect. 2. Moderate small vessel changes with moderate parenchymal volume loss. 3. Vascular calcification. 4. No acute intracranial findings. Abdomen/Pelvis CT 07/04/25 10:58 IMPRESSION: 1. Markedly enlarged prostate with bladder outlet obstruction. Recommend correlation PSA. 2. No hydronephrosis in either kidney. 3. Stable infrarenal abdominal aortic aneurysm described above. 4. No other significant changes. Laboratory Results WBC 33.40 10^3/uL (3.29-11.43) H* 07/04/25 10:02 RBC 4.60 10^6/uL (3.85-5.65) 07/04/25 10:02 Hgb 11.90 g/dL (11.27-16.99) 07/04/25 10:02 Hct 35.9 % (37-53) L 07/04/25 10:02 MCV 78.0 fl (82-101) L 07/04/25 10:02 MCH 25.9 pg (27-33) L 07/04/25 10:02 MCHC 33.1 g/dL (30-55) 07/04/25 10:02 RDW 16.2 % (12.1-15.1) H 07/04/25 10:02 Plt Count 242 10^3/cmm (157-399) 07/04/25 10:02 MPV 9.4 fL (7.4-10.4) 07/04/25 10:02 Neut % (Auto) 92.3 % 07/04/25 10:02 Lymph % (Auto) 3.1 % 07/04/25 10:02 [place] % (Auto) 3.3 % 07/04/25 10:02 Eos % (Auto) 0.0 % 07/04/25 10:02 Baso % (Auto) 0.1 % 07/04/25 10:02 Neut # (Auto) 30.81 10^3/uL (1.8-7.7) H 07/04/25 10:02 Lymph # (Auto) 1.0 10^3/uL (0.8-4.8) 07/04/25 10:02 [place] # (Auto) 1.1 10^3/uL (0.2-0.9) H 07/04/25 10:02 Eos # (Auto) 0.0 10^3/uL (0.0-0.8) 07/04/25 10:02 Baso # (Auto) 0.1 10^3/uL (0.0-0.1) 07/04/25 10:02 Nucleated RBC % (auto) 0 % 07/04/25 10:02 Nucleated RBCs # 0.0 /100WBC 07/04/25 10:02 PT 15.90 SECONDS (12.1-14.9) H 07/04/25 10:02 INR 1.19 (0.8-1.2) 07/04/25 10:02 APTT 39.2 SECONDS (23.9-36.7) H 07/04/25 10:02 Sodium 135 mmol/L (136-145) L 07/04/25 10:02 Potassium 4.1 mmol/L (3.5-5.1) 07/04/25 10:02 Chloride 94 mmol/L (98-107) L 07/04/25 10:02 Carbon Dioxide 26 mmol/L (22-29) 07/04/25 10:02 Anion Gap 19.1 (5-19) H 07/04/25 10:02 BUN 36 mg/dL (8-23) H 07/04/25 10:02 Creatinine 1.3 mg/dL (0.7-1.2) H 07/04/25 10:02 GFR Calculation Not Reportable 07/04/25 10:02 Glucose 156 mg/dL (65-115) H 07/04/25 10:02 POC Glucose 184 mg/dL (70-110) H 07/04/25 10:28 Calculated Osmolality 292 mOsm/kg (285-295) 07/04/25 10:02 Lactic Acid 1.6 mmol/L (0.5-2.2) 07/04/25 10:02 Calcium 9.7 mg/dL (8.5-10.5) 07/04/25 10:02 Total Bilirubin 1.5 mg/dL (0.15-1.2) H 07/04/25 10:02 AST 14 U/L (0-40) 07/04/25 10:02 ALT 10 U/L (0-41) 07/04/25 10:02 Alkaline Phosphatase 127 U/L (40-130) 07/04/25 10:02 C-Reactive Protein 312.3 mg/L (0.0-4.9) H 07/04/25 10:02 NT-Pro-B Natriuret Pep 2104 pg/mL (0-450) H 07/04/25 10:02 NT-Pro-B Natriuret Pep Cancelled 07/04/25 10:02 Total Protein 7.5 g/dL (6.6-8.7) 07/04/25 10:02 Albumin 3.4 g/dL (3.5-5.2) L 07/04/25 10:02 Globulin 4.1 g/dL (1.3-4.6) 07/04/25 10:02 Procalcitonin 4.79 ng/mL (0-0.5) H 07/04/25 10:02 Urine Color Dark yellow (Yellow) A 07/04/25 10:00 Urine Appearance Cloudy (CLEAR) A 07/04/25 10:00 Urine pH 5.5 (5-7) 07/04/25 10:00 Ur Specific [place] 1.022 (1.005-1.030) 07/04/25 10:00 Urine Protein 1+ (Negative) A 07/04/25 10:00 Urine Glucose (UA) Negative (Normal) 07/04/25 10:00 Urine Ketones 1+ (Negative) H 07/04/25 10:00 Urine Blood 1+ (Negative) A 07/04/25 10:00 Urine Nitrate Positive (Negative) A 07/04/25 10:00 Urine Bilirubin 1+ (Negative) H 07/04/25 10:00 Urine Urobilinogen 1.0 mg/dL (Negative) 07/04/25 10:00 Ur Leukocyte Esterase 3+ (Negative) A 07/04/25 10:00 Urine RBC 5-10 /hpf (0-2) H 07/04/25 10:00 Urine WBC 51-100 /hpf (0-5) H 07/04/25 10:00 Ur Squamous Epith Cells 5-10 /hpf (0-5) H 07/04/25 10:00 Amorphous Sediment Not Reportable 07/04/25 10:00 Urine Bacteria 3+ /hpf (NONE) H 07/04/25 10:00 Urine Mucus 1+ /hpf 07/04/25 10:00 Influenza A (PCR) Negative (Negative) 07/04/25 10:33 Influenza Type B (PCR) Negative (Negative) 07/04/25 10:33 RSV (PCR) Negative (Negative) 07/04/25 10:33 SARS-CoV-2 (PCR) Negative (Negative) 07/04/25 10:33 Discharge Plan Discharge Patient Disposition: Admitted As Inpatient Admit Provider: Johnson Mosher Clinical Impression: Right middle lobe pneumonia Qualifiers: Pneumonia type: due to unspecified organism Qualified Code(s): J18.9 - Pneumonia, unspecified organism Acute cystitis Qualifiers: Hematuria presence: with hematuria Qualified Code(s): N30.01 - Acute cystitis with hematuria AMS (altered mental status) Qualifiers: Altered mental status type: unspecified Qualified Code(s): R41.82 - Altered mental status, unspecified Condition: Stable Coding Level of Care Code ED Soccer Ball Assembler for Ledy Hernandez
[2025-07-04 10:08] LABS: Hematocrit 35.9 % (37-53); Hemoglobin 11.90 g/dL (11.27-16.99); Mean Corpuscular HGB Conc 33.1 g/dL (30-55); Mean Corpuscular Hemoglobin 25.9 pg (27-33); Mean Corpuscular Volume 78.0 fl (82-101); Nucleated Red Blood Cells % 0 %; Platelet Count 242 10^3/cmm (157-399); Red Blood Count 4.60 10^6/uL (3.85-5.65)
--- NOTE | 2025-07-04 10:10 | PC.NURSE ---
THIS NURSE CALLED TUNDE ALEXIS. NURSE AT [facility] STATES PATIENT IS NORMALLY ALERT AND ORIENTED AND VERY INDEPENDENT. PATIENT HAS BEEN ALTERED SINCE THIS WEEKEND. FAMILY WAS CONSULTED AND DID NOT WANT HIM SENT OVER THE WEEKEND. SENIOR CARE STATES PATIENT IS DESATTING WITHOUT OXYGEN, UNABLE TO ANSWER QUESTIONS, AND WILL NOT EAT OR SWALLOW ANY FOOD. PROVIDER NOTIFIED.
[2025-07-04 10:12] LABS: Glucose Urine UA Negative (Normal); Nitrate Urine Positive (Negative); Specific Gravity, Urine 1.022 (1.005-1.030)
[2025-07-04 10:30] LABS: White Blood Count 33.40 10^3/uL (3.29-11.43)
[2025-07-04 10:33] LABS: Alanine Aminotransferase 10 U/L (0-41); Albumin Level 3.4 g/dL (3.5-5.2); Alkaline Phosphatase 127 U/L (40-130); Anion Gap 19.1 (5-19); Aspartate Amino Transferase 14 U/L (0-40); Blood Urea Nitrogen 36 mg/dL (8-23); Calcium 9.7 mg/dL (8.5-10.5); Carbon Dioxide 26 mmol/L (22-29); Chloride 94 mmol/L (98-107); Creatinine Clr Calc Pharmacy 46.2540; Globulin 4.1 g/dL (1.3-4.6); Glucose 156 mg/dL (65-115); Lactic Sepsis W/Reflex 1.6 mmol/L (0.5-2.2); Osmolality Calculated 292 mOsm/kg (285-295); Potassium 4.1 mmol/L (3.5-5.1); Sodium 135 mmol/L (136-145); Total Protein 7.5 g/dL (6.6-8.7)
[2025-07-04 10:35] LABS: Add Urine Microscopic? YES
[2025-07-04 10:40] LABS: Procalcitonin 4.79 ng/mL (0-0.5)
--- OUTSIDE RECORDS SUMMARY | 2025-07-04 10:41 | XMS_ITS | Encounter Summary ---
Author Organization [facility] Address [address] [place] [address] Care Team Providers Care Medical Technologist Chief Name Role Phone Jaspal, External Provider Primary Care Provider +1- [phone] Encounter Details Date Type Department Care Team (Latest Contact Info) Description 07/17/2005 Outpatient Historical [facility]- [place] [address] [place] [phone] Sean Aquino MD [address] [place] [address] MED EXAM NEC-ADMIN PURP (Primary [...] Primary documented in this encounter Care Teams Medical Technologist Chief Relationship Specialty Start Date End Date [facility], External Provider [address] [place] [address] PCP - General Family Practice 03/25/16 documented as of this encounter
--- OUTSIDE RECORDS SUMMARY | 2025-07-04 10:41 | XMS_ITS | Encounter Summary ---
Author Organization [facility] Address [address] [place] [address] Care Team Providers Care Granulator Operator Name Role Phone [facility], External Provider Primary Care Provider +1- [phone] Encounter Details Date Type Department Care Team (Latest Contact Info) Description 05/06/2005 Outpatient Historical [facility] [address] [place] [phone] Sean Aquino MD [address] [address] HYPERTENSION NOS (Primary Dx) Social [...] Primary documented in this encounter Care Teams Granulator Operator Relationship Specialty Start Date End Date [facility], External Provider [address] [place] [address] PCP - General Family Practice 03/25/16 documented as of this encounter
--- OUTSIDE RECORDS SUMMARY | 2025-07-04 10:41 | XMS_ITS | Encounter Summary ---
Author Organization [facility] Address [address] [place] [address] Care Team Providers Care Ben Day Artist Name Role Phone [facility], External Provider Primary Care Provider +1- [phone] Encounter Details Date Type Department Care Team (Latest Contact Info) Description 08/07/2004 Outpatient [facility] [address] [place] [phone] Sean Aquino MD [address] [place] [address] HYPERTENSION NOS (Primary Dx); HEALTH [...] subpopulation documented in this encounter Care Teams Ben Day Artist Relationship Specialty Start Date End Date [facility], External Provider [address] [place] [address] PCP - General Family Practice 03/25/16 documented as of this encounter
--- OUTSIDE RECORDS SUMMARY | 2025-07-04 10:41 | XMS_ITS | Clinical Summary ---
Author Organization [facility] Address [address] 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 Gender Identity Not on file Sexual Orientation Not on file Last Filed Vital Signs Vital Sign Reading Time Taken Comments Blood Pressure 130/72 07/18/2022 1:02 PM CDT Pulse 70 07/18/2022 1:02 PM CDT Temperature 36.3 C (97.4 F) 10/28/2016 12:55 PM SCREW MACHINE TOOL SETTER Respiratory Rate 16 05/30/2022 3:31 PM CDT [...] 2025 06/26/2015 Medical Devices Implanted Type Area Dwarf Tree Grower Device Identifier Shelf Expiration Date Model / Serial / Lot Lens Io Tecnis 1pc 23.0 [id number] - [id number] Implanted:Qty: 1 on 03/27/2016 by Kanu Diaz MD Eye Left: Eye [employer] 05/15/2019 [id number] / [id number] / Lens Io Tecnis 1pc 23.5 [id number] - [id number] Implanted:Qty: 1 on 04/10/2016 by Kanu Diaz MD Eye Right: Eye [employer] 02/18/2020 [id number] / [id number] / N/A Insurance [facility] MEDICARE HMO [place] Advance Directives For more information, please contact: [phone] * Full Code (Latest Code Status on File) Date Activated Date Inactivated Comments 05/30/2022 2:17 PM 05/30/2022 5:48 PM Care Teams Roll Shop Supervisor Relationship Specialty Start Date End Date [facility], External Provider [facility] [address] [place], [place] [address] PCP - General Family Practice 03/25/16
--- OUTSIDE RECORDS SUMMARY | 2025-07-04 10:41 | XMS_ITS | Clinical Summary ---
Author Organization [facility] Address [address] [place] [address] Care Team Providers Care Clerical Clerk Name Role Phone [facility], External Provider Primary Care Provider +1- [phone] Allergies Active Allergy Reactions Criticality Noted Date [...] Comments Blood Pressure 110/60 10/28/2016 12:55 PM BUSINESS STRATEGY MANAGER Pulse 56 10/28/2016 12:55 PM BUSINESS STRATEGY MANAGER Temperature 36.3 C (97.4 F) 10/28/2016 12:55 PM BUSINESS STRATEGY MANAGER Respiratory Rate 18 10/28/2016 12:5 5 PM BUSINESS STRATEGY MANAGER Oxygen Saturation 94% 10/28/2016 12: 55 PM BUSINESS STRATEGY MANAGER Inhaled Oxygen Concentration - - Weight 98.8 kg (217 lb 12.8 oz) 017 12:55 PM BUSINESS STRATEGY MANAGER Height 177.8 cm (5' 10 ) 10/28/2016 12: 55 PM BUSINESS STRATEGY MANAGER Body Mass Index 31.25 10/28/2016 12:55 PM BUSINESS STRATEGY MANAGER Plan of Treatment Health Maintenance Due Date Last Done Comments DTAP/TDAP/TD VACCINES (1 - Tdap) 1962 PNEUMOCOCCAL VACCINE 50+ YEARS (1 of 2 - PCV) 05/17/19 62 ZOSTER VACCINE (1 of 2) 1993 RSV VACCINE (60+ or ) (1 - 1-dose 75+ series) 2018 INFLUENZA VACCINE (#1) 2025 06/26/2015 Medical Devices Implanted Type Area Basting Cleaner Device Identifier Shelf Expiration Date Model / Serial / Lot Lens Io Tecnis 1pc 23.0 [id number] - [id number] Implanted:Qty: 1 on 03/27/2016 by Kanu Diaz MD at [facility] Left: Eye [employer] 05/15/2019 [id number] / [id number] / Lens Io Tecnis 1pc 23.5 [id number] - [id number] Implanted:Qty: 1 on 04/10/2016 by Kanu Diaz MD at [facility] Right: Eye [employer] 02/18/2020 [id number] / [id number] / N/A Insurance [facility] Member Subscriber Plan / Payer (Ef fective 2015-Present) Name:Jose Perkins Relation to Subscriber:Self Name:Jose Perkins Payer ID:[id number] (NAIC) Type:Medicare [employer] Care Address: [address] Advance Directives For more information, please contact: [phone] * Full Code (Latest Code Status on File) Date Activated Date Inactivated Comments 04/10/2016 1:46 PM 04/10/2016 6:19 PM * Full Code Date Activated Date Inactivated Comments 03/27/2016 2:48 PM 03/27/2016 6:16 PM Care Teams Clerical Clerk Relationship Specialty Start Date End Date [facility], External Provider [address] [place] [address] PCP - General Family Practice 03/25/16
[2025-07-04 10:45] LABS: NT Pro B Type Natriuretic Pept 2104 pg/mL (0-450)
[2025-07-04] MEDS: meropenem 1,000 mg SDV 1000 MG IVP (10:56)
--- NOTE | 2025-07-04 10:58 | CT_ITS ---
WS: [id number] CT ABDOMEN PELVIS TECHNIQUE: Noncontrast CT of the abdomen and pelvis with coronal and sagittal reformatted images. CLINICAL INFORMATION: UTI, elevations to BUN/Cr COMPARISON: 03/26/2025 DLP: 794.[address] scans at [facility] use at least one of these dose optimization techniques: automated exposure control; mA and/or kV adjustment per patient size (includes targeted exams where dose is matched to clinical indication); or iterative reconstruction. FINDINGS: Adrenal glands are normal. No hydronephrosis in either kidney. Bilateral renal cysts. Markedly enlarged heterogeneous prostate measuring 4.7 x 6.0 cm with mild bladder wall thickening compatible with bladder outlet obstruction. Recommend correlation PSA. Sigmoid diverticulosis. No evidence of acute diverticulitis. Small fat- containing umbilical hernia. Noncontrast liver and spleen are normal. Cholecystectomy clips. Tiny esophageal hiatal hernia. Subsegmental atelectasis in the lung bases. Noncalcified nodule RIGHT lung base measuring 1.1 cm. Bronchiectasis with compressive atelectasis in the RIGHT middle lobe. Infrarenal abdominal aortic aneurysm measuring 5.7 x 5.3 cm AP by transverse. This appears stable compared to 03/26/2025. CT/CT kidney stone [id number] IMPRESSION: 1. Markedly enlarged prostate with bladder outlet obstruction. Recommend corre lation PSA. 2. No hydronephrosis in either kidney. 3. Stable infrarenal abdominal aortic aneurysm described above. 4. No other significant changes.
[2025-07-04 11:11] LABS: Respiratory Syncytial Virus Ce NEGATIVE (Negative); SARS-CoV-2 PCR NEGATIVE (Negative)
[2025-07-04 11:52] LABS: ABG PCO2 35.0 mmHg (35-45); ABG PH Result 7.45 (7.35-7.45); Alveolar-Arterial Oxygen Gradi 6.4 mmHg (5-10); Arterial Blood Gas Hematocrit 34.2 % (42-52); Blood Gas Allen Test Pos; Blood Gas LPM 2.0 %; Blood Gas Operator Identificat WALCI; Blood Gas Sample Site Radial, left; Blood Gas Sample Type Arterial; Carboxyhemoglobin 1.2 %THgb (0.4-20.1); Glucose Level-ABG 143.0 mg/dL (70-115); HCO3 ABG 24.4 mmol/L (22-26); Ionized Calcium Level - ABG 1.2 mmol/L (1.1-1.4); Methemoglobin 0.8 % (0.4-1.5); Oxygen Saturation ABG 91.4; PO2 ABG 57.1 mmHg (80.0-100.0); Potassium Level - ABG 3.5 mmol/L (3.5-5.0); Sodium Level - ABG 138.0 mmol/L (131-143)
--- NOTE | 2025-07-04 13:30 | PC.NURSE ---
PT BECOMING AGITATED AND CONTINUES TO TRY AND GET OUT OF BED AND REMOVE REQUIRED OXYGEN. HOSPITALIST NOTIFIED. NEW ORDERS RECEIVED.
[2025-07-04] MEDS: haloperidol inj 5 mg/mL INJ 1 mL 2 MG IM (13:37)
--- NOTE | 2025-07-04 13:42 | ECG_ITS ---
[employer] Test Date: 2025-07-04 Pat Name: Jose Perkins Department: Room: ED Gender: Male Brass Buffer: : 1945 Requested By: Johnson Mosher Order Number: [id number] Aasel MD: Uma Patel M.D. Measurements Intervals [place] Rate: 107 P: 52 SD: 165 QRS: 52 QRSD: 118 T: 50 QT: 280 QTc: 375 Interpretive Statements SINUS TACHYCARDIA MODERATE INTRAVENTRICULAR CONDUCTION DELAY [110+ ms QRS DURATION] NONSPECIFIC ST & T-WAVE ABNORMALITY ABNORMAL RHYTHM ECG Compared to ECG 07/04/2025 10:10:09 Intraventricular conduction delay now present T-wave abnormality now present Sinus rhythm no longer present Electronically Signed On 07-04-2025 15:32:19 CDT by Uma Patel M.D. [email or web address]
--- NOTE | 2025-07-04 13:52 | P.HP_ITS ---
Documented by User: MAYCO Brannon [facility] 07/04/25 14:13 Providers/Chief Complaint 2 Admitting Physician: Johnson Mosher MD Primary Care Provider: Joe Bustillos DO Chief Complaint: Weakness History of Present Illness Jose Perkins is a 80 year old male who presents to the ED via EMS from his group home with altered mental status. He also seems to respond to some intermittent, sternal chest pain but is unable to describe it. As reported via group home staff and ER staff, he underwent a decline in mental status from a baseline of normally alert and oriented to people, place, and time. Patient is oriented to self but not to time, year, or place. He follows commands well. He is still unable to describe any of his history. His vitals remain stable. Review of Systems 2 Narrative: Unable to obtain due to altered mental status. Medications/Allergies Home Medications ?Medication ?Instructions ?Recorded ?Confirmed ?Last Taken ?Type clopidogrel 75 mg tablet 75 mg PO DAILY 12/02/19 07/10/0803/13/25 History nitroglycerin 0.4 mg sublingual 0.4 mg sublingual Q5M PRN Chest 12/02/19 03/14/25 02/17/22 History tablet (Nitrostat) Pain aspirin 81 mg tablet,delayed 81 mg PO DAILY #90 tabs 0 02/05/22 03/14/25 03/13/25 Rx release cholecalciferol (vitamin D3) 125 125 mcg PO DAILY 03/1503/14/25 03/13/25 History mcg (5,000 unit) capsule chlorthalidone 25 mg tablet 25 mg PO DAILY #30 tabs 05/22/25 03/13/25 Rx meclizine 25 mg tablet 25 mg PO BID PRN dizziness # 30 tabs 05/01/22 03/14/25 Unknown Rx lisinopril 5 mg tablet 5 mg PO DAILY PRN Blood Pres sure 05/20/22 03/14/25 Unknown History acetaminophen 500 mg tablet 500 - 1,000 mg PO Q6H PRN 10/06/23 03/14/25 Unknown History Pain/fever aluminum-mag hydroxide-simethicone 30 ml PO QID PRN Ac id Reflux 10/06/23 03/14/25 Unknown History 200 mg-200 mg-20 mg/5 mL oral susp aluminum-mag hydroxide-simethicone 10 - 20 ml PO QID P RN Acid Reflux 10/06/23 03/14/25 Unknown History 200 mg-200 mg-20 mg/5 mL oral susp (Antacid) diltiazem HCl 120 mg 120 mg PO DAILY 10/06/2310/0803/13/25 History capsule,extended release 24 hr isosorbide mononitrate 60 mg 60 mg PO BID 10/06/2310/0803/13/25 History tablet,extended release 24 hr magnesium hydroxide 400 mg/5 mL 30 ml PO DAILY PRN Con stipation 10/06/23 03/14/25 Unknown History oral suspension (Milk of Magnesia) pantoprazole 40 mg tablet,delayed 40 mg PO DAILY 10/0603/14/25 03/13/25 History release tamsulosin 0.4 mg capsule 0.4 mg PO BEDTIME 10/06/23 0 03/14/25 03/13/25 History zinc acetate 50 mg (zinc) capsule 50 mg PO DAILY 10/0603/14/25 03/13/25 History albuterol sulfate 90 mcg/actuation 2 inh inhalation Q8 H PRN shortness 10/07/23 06/12/25 Unknown Rx aerosol inhaler of breath or wheezing #6.7 g zachery budesonide-formoterol HFA 160 2 puff inhalation BID 12 months 10/07/23 03/14/25 03/13/25 Rx mcg-4.5 mcg/actuation aerosol #10.2 grams inhaler (Symbicort) insulin lispro 100 unit/mL See Rx Instructions .Route 10/07/23 03/14/25 03/13/25 Rx subcutaneous pen (Humalog KwikPen .COMPLEX #15 mL (U-100) Insulin) potassium chloride 20 mEq 20 meq PO DAILY hypokalemia #180 10/07/23 03/14/25 03/13/25 Rx tablet,extended release tabs sitagliptin phosphate 50 mg tablet 50 mg PO DAILY #90 tabs 10/07/23 03/14/25 03/13/25 Rx (Januvia) tiotropium bromide 1.25 2 inh inhalation DAILY #4 gr ams 10/07/23 03/14/25 03/13/25 Rx mcg/actuation mist for inhalation (Spiriva Respimat) promethazine-DM 6.25 mg-15 mg/5 mL See Rx Instructions .Route 11/10/23 03/14/25 Unknown Rx oral syrup .COMPLEX #200 mL mupirocin 2 % topical ointment 1 applic topical BID sk in 04/11/24 03/14/25 03/13/25 Rx infection #22 grams wheel chair, standard with leg #1 ea 11/22/24 03/14/25 Unknown Rx rests fluoxetine 40 mg capsule 40 mg PO DAILY anxiety #30 c aps 02/22/25 03/14/25 03/13/25 Rx bed side urinal #1 ea 03/07/25 03/14/25 Unkn own Rx bismuth subsalicylate 262 mg/15 mL 524 mg PO Q1H PRN D iarrhea 03/14/25 03/14/25 Unknown History oral suspension hydroxyzine HCl 50 mg tablet 50 mg PO TID anxiety or p anic 03/14/25 Unknown Rx attack #90 tabs insulin glargine 100 unit/mL (3 5 unit SUBCUT BEDTIME 03/14/25 03/14/25 03/13/25 History mL) subcutaneous pen (Lantus Solostar U-100 Insulin) tramadol 50 mg tablet 50 mg PO Q8H PRN Pain 03/14/25 Unknown History trazodone 100 mg tablet 100 mg PO BEDTIME 03/14/25 0 03/14/25 03/13/25 History anxiety/depression/sleep pregabalin 75 mg capsule (Lyrica) 75 mg PO QDAY neurop athy #30 caps 05/09/25 Unknown Rx gabapentin 300 mg capsule 300 mg PO BID neuropathic pa in #60 06/12/25 06/12/25 Unknown Rx caps hydrocodone 5 mg-acetaminophen 325 1 tab PO TID pain/m uscle tension 1 07/03/25 Unknown Rx mg tablet month #90 tabs Allergies Allergy/AdvReac Type Severity Reaction Status Date / Time Penicillins Allergy Unknown Unknown Verified 06/12/25 10:22 tirofiban (From Aggrastat Allergy Unknown Unknown Verified 06/12/25 10:22 Concentrate) shellfish derived Allergy ADR-Vomitin Verified 06/12/25 10:22 g lorazepam (From Ativan) AdvReac Severe ADR-Halluci Verified 06/12/25 10:22 nating PFSH Acute 2 PFSH: Medical History Diabetes Acute hypoxic respiratory failure Influenza A Hypoxemia COPD exacerbation Weakness Myalgia HTN (hypertension) Late latent syphilis PSA elevation Orthostatic dizziness AAA (abdominal aortic aneurysm) Falls Hyperlipidemia Depression Peripheral neuropathy BPH (benign prostatic hyperplasia) GERD (gastroesophageal reflux disease) Tobacco abuse ASHD (arteriosclerotic heart disease) CVA (cerebral vascular accident) COPD (chronic obstructive pulmonary disease) Surgical History History of appendectomy S/P cataract extraction S/P tonsillectomy Family History Father Cancer Mother Diabetes Social History Smoking and tobacco/nicotine status: current every day tobacco/nicotine user cigarettes Packs smoked per day: 0.25 Alcohol intake: former Substance/Drug Use: former Adopted: No Caregiver/support person: No Lives independently: Yes Household members: none Housing: Apartment Marital status: Current occupational status: disabled Pets and animals: No Current gender identity: Male Vitals/I&O/Wt Last Vital Signs Temp 98.3 F 07/04/25 09:29 Pulse 101 H 07/04/25 13:15 Resp 24 H 07/04/25 13:15 BP 154/78 07/04/25 13:15 Pulse Ox 94 07/04/25 13:15 O2 Del Method Nasal Cannula 07/04/25 11:30 O2 Flow Rate 2 07/04/25 11:30 07/03/25 07/04/25 07/04/25 22:59 06:59 14:59 Intake Total 2550 / 2550 Balance 2550 / 2550 Weight last 48 hrs Weight 77.111 kg Physical Exam 2 Const: EXAM LIMITATIONS: altered mental status ORIENTATION/CONSCIOUSNESS: Y es awake, Yes oriented to person and Yes confused; not oriented to place and not oriented to time HENMT: HEAD & SCALP: atraumatic OTHER: Mucous membranes and tongue are dry. Resp: AUSCULTATION: clear to auscultation bilaterally, no crackles and no wheezes Cardio: RATE: tachycardic RHYTHM: regular rhythm HEART SOUNDS: S1 normal heart sound present, S2 normal heart sound present and no murmurs GI: AUSCULTATION: Yes normoactive bowel sounds PALPATION: Yes Tenderness to palpation present (GI) Details: LLQ and LUQ Neuro: COMMON NORMALS: patient oriented x3, moves all extremities, no focal motor deficits and no sensory deficits noted Skin: COMMON NORMALS: no rashes or lesions noted Urinary Catheter Management: Jack: Cath Placed During This Visit: yes Urinary Catheter Date of Insertion: 07/04/25 Urinary Catheter Time of Insertion: 12:32 Data 07/04/25 10:02 07/04/25 10:02 Micro: Microbiology 07/04/25 10:11 Blood Culture - Preliminary Blood SPECIMEN COLLECTED 07/04/25 10:18 Blood Culture - Preliminary Blood SPECIMEN COLLECTED A&P Assessment and plan 1. Sepsis: 2. UTI (urinary tract infection): 3. Pneumonia: Plan: 1. Altered mental status 2. Sepsis 3. Right middle lobar pneumonia 4. Acute bladder outlet obstruction Chest X-Ray 07/04/25 09:45 IMPRESSION: New right middle lobe opacity when compared with the x-ray from 03/14/2025. Appearance is concerning for pneumonia. Abdomen/Pelvis CT 07/04/25 10:58 IMPRESSION: 1. Markedly enlarged prostate with bladder outlet obstruction. Recommend correlation PSA. 2. No hydronephrosis in either kidney. 3. Stable infrarenal abdominal aortic aneurysm described above. 4. No other significant changes. Plan is for septic fluid resuscitation and empiric antibiotics vancomycin and meropenem to cover possible group home acquired pneumonia, urinary tract infection, possible pyelonephritis. Jack catheter placed to relieve acute urinary retention. Will obtain further history once patient's mental status improves. PDMP PDMP Reviewed: Not Reviewed Attestations 2 Medical Necessity Statement*: altered mental status and sepsis. Coding Level of Care Code 51056 Diagnoses Sepsis A41.9 UTI (urinary tract infection) N39.0 Pneumonia J18.9 Documented by User: Johnson Mosher MD 07/04/25 14:49 Providers/Chief Complaint 2 Chief Complaint: Weakness History of Present Illness Jose Perkins is a 80 year old male who presents to the emergency room via EMS from his group home with altered mental status. Currently patient is alert to person, not to place, to time, is diffusely encephalopathic, does not follow commands, according to ER provider patient is at [place] and has had a decline over the weekend, with altered mental status, generalized weakness, no focal neurologic deficits, more generalized weakness, no family members at bedside Medications/Allergies Home Medications ?Medication ?Instructions ?Recorded ?Confirmed ?Last Taken ?Type clopidogrel 75 mg tablet 75 mg PO DAILY 12/02/19 07/10/0803/13/25 History nitroglycerin 0.4 mg sublingual 0.4 mg sublingual Q5M PRN Chest 12/02/19 03/14/25 02/17/22 History tablet (Nitrostat) Pain aspirin 81 mg tablet,delayed 81 mg PO DAILY #90 tabs 0 02/05/22 03/14/25 03/13/25 Rx release cholecalciferol (vitamin D3) 125 125 mcg PO DAILY 03/1503/14/25 03/13/25 History mcg (5,000 unit) capsule chlorthalidone 25 mg tablet 25 mg PO DAILY #30 tabs 05/22/25 03/13/25 Rx meclizine 25 mg tablet 25 mg PO BID PRN dizziness # 30 tabs 05/01/22 03/14/25 Unknown Rx lisinopril 5 mg tablet 5 mg PO DAILY PRN Blood Pres sure 05/20/22 03/14/25 Unknown History acetaminophen 500 mg tablet 500 - 1,000 mg PO Q6H PRN 10/06/23 03/14/25 Unknown History Pain/fever aluminum-mag hydroxide-simethicone 30 ml PO QID PRN Ac id Reflux 10/06/23 03/14/25 Unknown History 200 mg-200 mg-20 mg/5 mL oral susp aluminum-mag hydroxide-simethicone 10 - 20 ml PO QID P RN Acid Reflux 10/06/23 03/14/25 Unknown History 200 mg-200 mg-20 mg/5 mL oral susp (Antacid) diltiazem HCl 120 mg 120 mg PO DAILY 10/06/2310/0803/13/25 History capsule,extended release 24 hr isosorbide mononitrate 60 mg 60 mg PO BID 10/06/2310/0803/13/25 History tablet,extended release 24 hr magnesium hydroxide 400 mg/5 mL 30 ml PO DAILY PRN Con stipation 10/06/23 03/14/25 Unknown History oral suspension (Milk of Magnesia) pantoprazole 40 mg tablet,delayed 40 mg PO DAILY 10/0603/14/25 03/13/25 History release tamsulosin 0.4 mg capsule 0.4 mg PO BEDTIME 10/06/23 0 03/14/25 03/13/25 History zinc acetate 50 mg (zinc) capsule 50 mg PO DAILY 10/0603/14/25 03/13/25 History albuterol sulfate 90 mcg/actuation 2 inh inhalation Q8 H PRN shortness 10/07/23 06/12/25 Unknown Rx aerosol inhaler of breath or wheezing #6.7 g zachery budesonide-formoterol HFA 160 2 puff inhalation BID 12 months 10/07/23 03/14/25 03/13/25 Rx mcg-4.5 mcg/actuation aerosol #10.2 grams inhaler (Symbicort) insulin lispro 100 unit/mL See Rx Instructions .Route 10/07/23 03/14/25 03/13/25 Rx subcutaneous pen (Humalog KwikPen .COMPLEX #15 mL (U-100) Insulin) potassium chloride 20 mEq 20 meq PO DAILY hypokalemia #180 10/07/23 03/14/25 03/13/25 Rx tablet,extended release tabs sitagliptin phosphate 50 mg tablet 50 mg PO DAILY #90 tabs 10/07/23 03/14/25 03/13/25 Rx (Januvia) tiotropium bromide 1.25 2 inh inhalation DAILY #4 gr ams 10/07/23 03/14/25 03/13/25 Rx mcg/actuation mist for inhalation (Spiriva Respimat) promethazine-DM 6.25 mg-15 mg/5 mL See Rx Instructions .Route 11/10/23 03/14/25 Unknown Rx oral syrup .COMPLEX #200 mL mupirocin 2 % topical ointment 1 applic topical BID sk in 04/11/24 03/14/25 03/13/25 Rx infection #22 grams wheel chair, standard with leg #1 ea 11/22/24 03/14/25 Unknown Rx rests fluoxetine 40 mg capsule 40 mg PO DAILY anxiety #30 c aps 02/22/25 03/14/25 03/13/25 Rx bed side urinal #1 ea 03/07/25 03/14/25 Unkn own Rx bismuth subsalicylate 262 mg/15 mL 524 mg PO Q1H PRN D iarrhea 03/14/25 03/14/25 Unknown History oral suspension hydroxyzine HCl 50 mg tablet 50 mg PO TID anxiety or p anic 03/14/25 Unknown Rx attack #90 tabs insulin glargine 100 unit/mL (3 5 unit SUBCUT BEDTIME 03/14/25 03/14/25 03/13/25 History mL) subcutaneous pen (Lantus Solostar U-100 Insulin) tramadol 50 mg tablet 50 mg PO Q8H PRN Pain 03/14/25 Unknown History trazodone 100 mg tablet 100 mg PO BEDTIME 03/14/25 0 03/14/25 03/13/25 History anxiety/depression/sleep pregabalin 75 mg capsule (Lyrica) 75 mg PO QDAY neurop athy #30 caps 05/09/25 Unknown Rx gabapentin 300 mg capsule 300 mg PO BID neuropathic pa in #60 06/12/25 06/12/25 Unknown Rx caps hydrocodone 5 mg-acetaminophen 325 1 tab PO TID pain/m uscle tension 1 07/03/25 Unknown Rx mg tablet month #90 tabs Allergies Allergy/AdvReac Type Severity Reaction Status Date / Time Penicillins Allergy Unknown Unknown Verified 06/12/25 10:22 tirofiban (From Aggrastat Allergy Unknown Unknown Verified 06/12/25 10:22 Concentrate) shellfish derived Allergy ADR-Vomitin Verified 06/12/25 10:22 g lorazepam (From Ativan) AdvReac Severe ADR-Halluci Verified 06/12/25 10:22 nating PFSH Acute 2 PFSH: Medical History Diabetes Acute hypoxic respiratory failure Influenza A Hypoxemia COPD exacerbation Weakness Myalgia HTN (hypertension) Late latent syphilis PSA elevation Orthostatic dizziness AAA (abdominal aortic aneurysm) Falls Hyperlipidemia Depression Peripheral neuropathy BPH (benign prostatic hyperplasia) GERD (gastroesophageal reflux disease) Tobacco abuse ASHD (arteriosclerotic heart disease) CVA (cerebral vascular accident) COPD (chronic obstructive pulmonary disease) Surgical History History of appendectomy S/P cataract extraction S/P tonsillectomy Family History Father Cancer Mother Diabetes Social History Smoking and tobacco/nicotine status: current every day tobacco/nicotine user cigarettes Packs smoked per day: 0.25 Alcohol intake: former Substance/Drug Use: former Adopted: No Caregiver/support person: No Lives independently: Yes Household members: none Housing: Apartment Marital status: Current occupational status: disabled Pets and animals: No Current gender identity: Male Physical Exam 2 Eye: COMMON NORMALS: Equal, round and reactive pupils present Resp: AUSCULTATION: crackles and wheezes OTHER: Tachypnea, tachycardia, no nasal flaring, intercostal retraction, no suprasternal retractions GI: PALPATION: Yes Soft to palpation, No Tenderness to palpation present (GI), No Guarding due to palpation present (GI) and No Rigid due to palpation : COMMON NORMALS: Yes no CVA tenderness Urinary Catheter Management: Jack: Cath Placed During This Visit: yes Data 07/04/25 10:02 07/04/25 10:02 A&P Assessment and plan 1. Sepsis: 2. UTI (urinary tract infection): 3. Pneumonia: Plan: Sepsis - Secondary to urinary tract infection, - Pneumonia - Status post sepsis bolus Pneumonia - Right middle lobe pneumonia - Concerns for aspiration pneumonia Plan - N.p.o. - Aspiration precautions - Sputum culture - Blood culture - Vancomycin - Meropenem Urinary tract infection - Follow urine culture - Antibiotics as above Bladder outlet obstruction, with markedly enlarged prostate - Jack catheter placed in the ER - Will resume on discharge, will have to follow-up with nephrology as outpatient Altered mental status - Likely secondary to UTI, pneumonia, sepsis, bladder outlet obstruction FLAVIO secondary to sepsis Full code Lovenox DVT prophylaxis PDMP PDMP Reviewed: Not Reviewed Attestations 2 Medical Necessity Statement*: Patient requires hospitalization, inpatient, greater than 2 midnights for sepsis secondary to pneumonia, UTI, altered mental status, bladder outlet obstruction, FLAVIO Diagnoses Sepsis A41.9 UTI (urinary tract infection) N39.0 Pneumonia J18.9 Sepsis Event Note Evaluation Current stage of sepsis: sepsis Possible source: pulmonary and genitourinary Focused Exam Vital Signs Temp Pulse Resp BP Pulse Ox O2 Del Method O2 Flow Rate 07/04/25 14:15 111 H 24 H 159/95 93 07/04/25 14:00 170/126 95 07/04/25 13:45 108 H 22 H 145/72 94 07/04/25 13:30 106 H 14 154/78 93 07/04/25 13:15 101 H 24 H 154/78 94 07/04/25 13:00 104 H 24 H 144/77 95 07/04/25 12:49 101 H 29 H 144/77 93 07/04/25 11:30 100 138/86 93 Nasal Cannula 2 07/04/25 10:00 93 112/72 98 Room Air 07/04/25 09:29 98.3 F 95 16 127/89 94 Nasal Cannula 2 Respiratory exam: Present wheezes Cardiovascular exam: Present tachycardia Capillary refill: < 3 Seconds Peripheral pulse strength: 2+ Slightly Diminished Peripheral pulse location: Radial Skin exam: normal turgor Date exam was performed: 07/04/25 Time exam was performed: 14:47
[2025-07-04 14:29] LABS: Troponin(5th) Baseline 26 ng/L (0-15)
[2025-07-04 15:00] LABS: INR 1.19 (0.8-1.2); Partial Thromboplastin Time 39.2 SECONDS (23.9-36.7); Prothrombin Time 15.90 SECONDS (12.1-14.9)
[2025-07-04] MEDS: pantoprazole 40 mg SDV IVP (15:08)
[2025-07-04 15:18] LABS: Cholesterol 99 mg/dL (0-200); HDL Cholesterol 25 mg/dL (60-100); Thyroid Stimulating Hormone 0.62 uIU/mL (0.27-4.20); Triglycerides 116 mg/dL (0-150)
--- NOTE | 2025-07-04 15:34 | ECG_ITS ---
[facility]04 Pat Name: Jose Perkins Department: Room: [facility] Gender: Male Senior Health Consultant: : 1945 Requested By: Johnson Mosher Order Number: [id number] Asael MD: Uma Patel M.D. Measurements Intervals [place] Rate: 106 P: 56 WV: 169 QRS: 45 QRSD: 122 T: 40 QT: 286 QTc: 380 Interpretive Statements SINUS TACHYCARDIA MODERATE INTRAVENTRICULAR CONDUCTION DELAY [110+ ms QRS DURATION] NONSPECIFIC T-WAVE ABNORMALITY ABNORMAL RHYTHM ECG INTERPRETATION BASED ON A DEFAULT AGE OF 40 YEARS Compared to ECG 07/04/2025 13:42:12 No significant changes Electronically Signed On 07-04-2025 19:33:45 CDT by Uma Patel M.D. [email or web address] [id number]
--- NOTE | 2025-07-04 15:52 | PC.NURSE ---
Arrived from ED, transferred to bed with lift sheet, AO to self
[2025-07-04 17:23] LABS: Troponin 5 2HR 37.76 ng/L (0-15)
[2025-07-04 17:30] LABS: Troponin 5 2HR Delta 11.76 ABS# (0-10)
[2025-07-04 20:36] LABS: Troponin 5 6HR 60.49 ng/L (0-15)
[2025-07-04 20:43] LABS: Troponin 5 6HR Delta 34.49 ng/L (0-12)
--- NOTE | 2025-07-04 21:37 | ECG_ITS ---
[facility]: 2025-[facility]04 Pat Name: Jose Perkins Department: Room: [facility]03 Gender: Male Customer Care Specialist: : 1945 Requested By: Johnson Mosher Order Number: [id number] Asael MD: Uma Patel M.D. Measurements Intervals [place] Rate: 100 P: 51 ME: 175 QRS: 34 QRSD: 138 T: 30 QT: 283 QTc: 365 Interpretive Statements SINUS TACHYCARDIA WITH OCCASIONAL SUPRAVENTRICULAR PREMATURE COMPLEXES INTRAVENTRICULAR CONDUCTION DELAY [130+ ms QRS DURATION] POSSIBLE INFERIOR MYOCARDIAL INFARCTION , PROBABLY OLD [30 ms Q WAVE IN II/aVF] INTERPRETATION BASED ON A DEFAULT AGE OF 40 YEARS Compared to ECG 07/04/2025 16:14:12 Myocardial infarct finding now present T-wave abnormality no longer present Electronically Signed On 07-05-2025 23:00:30 CDT by Uma Patel M.D. [email or web address] [id number]
[2025-07-05] VITALS (45 sets, daily range): BP systolic 121–188; BP diastolic 64–111; PULSE 82–117; RESP 15–33; TEMP 36.6–36.8; O2SAT 90–98
--- NOTE | 2025-07-05 01:02 | USCV_ITS ---
Jose Perkins Age: 80 Gender: M : 1945 Exam Date: 07/05/2025 03:08 Ordering Phys: Obinna Dumont MD Technologist: LAURA Exam Location: [facility] Indication: admitted for altered mental status. patient complaining of chest or abdominal pain. BP: 145 / 73 HR: 86 Rhythm: Sinus Technical Quality: MEASUREMENTS (Male / Female) Normal Values 2D ECHO LV Diastolic Diameter PLAX 4.3 cm 4.2 - 5.9 / 3.9 - 5.3 cm IVS Diastolic Thickness 1.2 cm 0.6 - 1.0 / 0.6 - 0.9 cm IVS Systolic Thickness 1.6 cm LVPW Diastolic Thickness 1.3 cm 0.6 - 1.0 / 0.6 - 0.9 cm LVPW Systolic Thickness 1.4 cm LVOT Diameter 2.4 cm LV Ejection Fraction 2D Teich 56.6 % LV Ejection Fraction MOD 4C 54.3 % LV Ejection Fraction MOD 2C 59.1 % LV Ejection Fraction 2C AL 61.9 % LA Diameter 3.2 cm Aorta at Sinotubular Diameter 2.8 cm IVC Diameter 1.5 cm M-MODE LA Ao Ratio MM 1.1 AV Cusp Separation MM 1.9 cm DOPPLER AV Peak Velocity 129.0 cm/s LVOT Peak Velocity 127.0 cm/s AV Area Cont Eq vti 5.3 cm squared AV Area Cont Eq pk 4.5 cm squared MV Peak Velocity 95.0 cm/s MV Area PHT 3.8 cm squared Mitral E to A Ratio 0.7 TV Peak E Velocity 43.0 cm/s PV Peak Velocity 134.0 cm/s FINDINGS Left Ventricle Normal left ventricular size and systolic function, EF 59% .mild left ventricular hypertrophy. Abnormal septal motion consistent with conduction abnormality. Mild hypokinesis of the basal inferior wall segment.Grade I/IV diastolic dysfunction (abnormal relaxation filling pattern), normal to mildly elevated filling pressures. Right Ventricle Normal right ventricular size and systolic function. Right Atrium Normal right atrial size. Left Atrium Normal left atrial size. IA Septum Normal interatrial septum. Mitral Valve No gross abnormalities noted Aortic Valve Thickened aortic valve. Tricuspid Valve No gross abnormalities noted Pulmonic Valve Pulmonic valve not well visualized. Pericardium No pericardial effusion. Aorta Normal aortic annulus size. IVC Normal inferior vena cava. CONCLUSIONS Normal left ventricular size and systolic function, EF 59% .mild left ventricular hypertrophy. Abnormal septal motion consistent with conduction abnormality. Mild hypokinesis of the basal inferior wall segment.Grade I/IV diastolic dysfunction (abnormal relaxation filling pattern), normal to mildly elevated filling pressures. Thickened aortic valve. No significant valvular lesions. There is no pericardial effusion. There are no intracardiac masses. Comparison with the previous study is difficult because of the difference in the technical quality. Dr Uma Patel MD FAC (Electronically Signed) Final Date: 05 July 2025 09:29 S
--- NOTE | 2025-07-05 02:40 | US_ITS ---
WS: [id number] RIGHT UPPER QUADRANT ULTRASOUND HISTORY: hyperbilirubinemia, sepsis, RUQ tender COMPARISON: None available. Liver: 13.7 cm in length. Normal size liver and echogenicity. No bile duct dilatation or mass. Portal Vein: Normal hepatopetal flow with monophasic waveform. Gallbladder: Prior cholecystectomy. CBD: 0.6 cm Pancreas: Normal size and echogenicity. Right kidney: 11.9 cm in length. Normal size kidney. No hydronephrosis. Several cortical cysts are identified. The largest from the lower pole measures 3.5 x 4.1 cm. Aorta and IVC: Aneurysmal dilatation of the abdominal aorta. Maximum diameter is 5.9 cm. Aneurysm extends over a length of 8.8 cm. No para-aortic fluid or hematoma. No ascites. US/US gall bladder 58251 IMPRESSION: 1. Prior cholecystectomy. 2. Normal common bile duct. 3. Large abdominal aortic aneurysm, maximal diameter 5.9 cm. 4. RIGHT renal cyst. No renal obstruction.
[2025-07-05] MEDS: morphine 4 mg/mL SDV 1 mL 2 MG IVP (03:04)
[2025-07-05 05:10] LABS: Hematocrit 34.8 % (37-53); Hemoglobin 11.50 g/dL (11.27-16.99); Mean Corpuscular HGB Conc 33.0 g/dL (30-55); Mean Corpuscular Hemoglobin 25.7 pg (27-33); Mean Corpuscular Volume 77.9 fl (82-101); Nucleated Red Blood Cells % 0 %; Platelet Count 229 10^3/cmm (157-399); Red Blood Count 4.47 10^6/uL (3.85-5.65); White Blood Count 30.02 10^3/uL (3.29-11.43)
--- NOTE | 2025-07-05 05:18 | PC.NURSE ---
Pt had complaints of chest pain . Upon assessment pt pointed to his upper abdomen. On palpation pt grimaced with right upper quadrant, and continued to have intermittent complaints. Contacted Dr. Dumont and made aware, new orders received. NIH attempted as ordered, pt unable to follow directions adequately due to AMS, NIH inaccurate.
[2025-07-05 05:29] LABS: Alanine Aminotransferase 9 U/L (0-41); Albumin Level 2.8 g/dL (3.5-5.2); Alkaline Phosphatase 111 U/L (40-130); Anion Gap 19.8 (5-19); Aspartate Amino Transferase 19 U/L (0-40); Blood Urea Nitrogen 25 mg/dL (8-23); Calcium 9.0 mg/dL (8.5-10.5); Carbon Dioxide 23 mmol/L (22-29); Chloride 99 mmol/L (98-107); Creatinine Clr Calc Pharmacy 67.8364; Globulin 3.7 g/dL (1.3-4.6); Glucose 127 mg/dL (65-115); Magnesium 1.2 mg/dL (1.7-2.3); Osmolality Calculated 294 mOsm/kg (285-295); Sodium 139 mmol/L (136-145); Total Protein 6.5 g/dL (6.6-8.7)
[2025-07-05 05:34] LABS: Potassium 2.8 mmol/L (3.5-5.1)
[2025-07-05] MEDS: magnesium sulfate premix 4 GM/100 ML PREMIX IV (06:11)
[2025-07-05] MEDS: lidocaine 1% 5 ML in potassium chloride premix 100 ML 26.25 ML IV ×2 (06:11→23:35)
[2025-07-05] MEDS: potassium phosphate (mEq K) 40 MEQ in sodium chloride 0.9% (100 ml) 100 ML 27.25 MEQ IV (08:59)
[2025-07-05 10:27] LABS: Bacillus cereus group Not Detected (NOT DETECT); Bacillus subtillis group Not Detected (NOT DETECT); Corynebacterium Not Detected (NOT DETECT); Cutibacterium acnes (P.acnes) Not Detected (NOT DETECT); Enterococcus faecalis Not Detected (NOT DETECT); Enterococcus faecium Not Detected (NOT DETECT); Listeria Not Detected (NOT DETECT); Micrococcus Not Detected (NOT DETECT); Pan Candida Not Detected (NOT DETECT); Pan Gram-Negative Not Detected (NOT DETECT); Staphylococcus epidermidis Not Detected (NOT DETECT); Staphylococcus lugdunensis Not Detected (NOT DETECT); Streptococcus anginosus group Not Detected (NOT DETECT); Streptococcus pyogenes Not Detected (NOT DETECT); Streptococcus species Not Detected (NOT DETECT); mecA Not Detected (NOT DETECT); mecC Not Detected (NOT DETECT)
--- NOTE | 2025-07-05 12:10 | PHA.VACGOAL ---
Vancomycin Goal - Goal Vancomycin Goal:: 15-20 mg/L Vancomycin Indication:: Pneumonia - Therapy Day of therpy:: Day []of [] . Actual body weight (kg): 175 lb - Data Labs: WBC 30.02 10^3/uL (3.29-11.43) H 07/05/25 05:01 RBC 4.47 10^6/uL (3.85-5.65) 07/05/25 05:01 Hgb 11.50 g/dL (11.27-16.99) 07/05/25 05:01 Hct 34.8 % (37-53) L 07/05/25 05:01 MCV 77.9 fl (82-101) L 07/05/25 05:01 MCH 25.7 pg (27-33) L 07/05/25 05:01 MCHC 33.0 g/dL (30-55) 07/05/25 05:01 RDW 16.4 % (12.1-15.1) H 07/05/25 05:01 Sodium 139 mmol/L (136-145) 07/05/25 05:01 Potassium 2.8 mmol/L (3.5-5.1) L* D 07/05/25 05:01 Chloride 99 mmol/L (98-107) 07/05/25 05:01 Carbon Dioxide 23 mmol/L (22-29) 07/05/25 05:01 Anion Gap 19.8 (5-19) H 07/05/25 05:01 BUN 25 mg/dL (8-23) H 07/05/25 05:01 Creatinine 0.9 mg/dL (0.7-1.2) 07/05/25 05:01 GFR Calculation Not Reportable 07/05/25 05:01 Treatment plan:: new consult Regimen:: SEPSIS/UTI/PNEUMONIA 1000 MG Q12H TROUGH PRIOR TO 4TH DOSE
[2025-07-05 12:23] LABS: Staphylococcus species Detected (NOT DETECT)
--- NOTE | 2025-07-05 12:33 | PM.PN ---
Documented by User: Alex [email or web address] STDNT 07/05/25 12:45 Subjective Subjective: Patient seen today with mild improvement in mentation. He is oriented to self and place but not time. He seems to be able to communicate and remember the events of the past day with moderate difficulty but is still a poor historian at the moment. He doesn't note any new complaints and states he feels a little better. Vitals/I&O/Wt Last Vital Signs Temp 98.2 F 07/05/25 02:30 Pulse 83 07/05/25 08:00 Resp 16 07/05/25 08:00 BP 138/64 07/05/25 08:00 Pulse Ox 93 07/05/25 08:00 O2 Del Method Nasal Cannula 07/05/25 08:00 O2 Flow Rate 2 07/05/25 08:00 07/04/25 07/05/25 07/05/25 22:59 06:59 14:59 Intake Total 60 / 2610 1050 / 3660 686.667 / 686.667 Output Total 650 / 650 1100 / 1750 Balance -590 / 1960 -50 / 1910 686.667 / 686.667 Weight last 48 hrs Weight 79.379 kg Weight 79.974 kg Weight 77.111 kg Physical Exam Const: COMMON NORMALS: no acute distress and alert ORIENTATION/CONSCIOUSNESS: Yes oriented to person and Yes oriented to place; not oriented to time Resp: OTHER: Coarse crackles heard in RUL, RML and ELVIRA. Normal lung sounds in all other lung lobes. Cardio: COMMON NORMALS: regular rate, regular rhythm, S1 normal heart sound present and S2 normal heart sound present RATE: regular rate RHYTHM: regular rhythm HEART SOUNDS: S1 normal heart sound present, S2 normal heart sound present and no murmurs GI: AUSCULTATION: Yes normoactive bowel sounds PALPATION: Yes Tenderness to palpation present (GI) Details: LLQ, RLQ and RUQ Extremity: COMMON NORMALS: normal to inspection and no pedal edema Neuro: SENSORIUM/ORIENTATION: Yes alert, Yes oriented to person, Yes oriented to place and No oriented to time Skin: COMMON NORMALS: no rashes or lesions noted GENERAL SKIN EXAM: no rashes or lesions noted Urinary Catheter Management: Jack: Cath Placed During This Visit: yes Reason for Continuing Indwelling Catheter: Accurate Measurement of Urinary Output in Critically Ill Patients Urinary Catheter Date of Insertion: 07/04/25 Urinary Catheter Time of Insertion: 12:32 Data 07/06/25 04:03 07/06/25 12:49 Micro: Microbiology 07/04/25 10:11 Blood Culture - Preliminary Blood Staphylococcus species 07/04/25 10:00 Urine Culture - Preliminary Urine,Clean Catch Gram Negative Rods 07/04/25 10:18 Blood Culture - Preliminary Blood NEGATIVE TO DATE A&P Assessment and plan 1. Sepsis: 2. UTI (urinary tract infection): 3. Pneumonia: Plan: 1. Sepsis 2. Urinary tract infections 3. Pneumonia 4. Altered mental status 5. Acute hypokalemia - critical lab value 2.8 read this morning. Hypomagnesiumemia was also seen. Potassium and Mg2+ replacement were given by overnight doctor. Will continue to monitor telemetry for signs of acute arrhythmias. Plan: Continue NPO due to aspiration precautions. We will continue on vancomycin, meropenem, and IV fluids and continue to monitor improving mental status. PDMP PDMP Reviewed: Not Reviewed Attestations Medical Necessity Statement*: sepsis, UTI, pneumonia Coding Level of Care Code 96545 Diagnoses Sepsis A41.9 UTI (urinary tract infection) N39.0 Pneumonia J18.9 Documented by User: Johnson Mosher MD 07/06/25 18:51 Physical Exam Urinary Catheter Management: Jack: Cath Placed During This Visit: yes Data 07/06/25 04:03 07/06/25 12:49 A&P Assessment and plan 1. Sepsis: 2. UTI (urinary tract infection): 3. Pneumonia: Plan: Sepsis - Secondary to urinary tract infection, - Pneumonia - Monitor Staph bacteremia - Cardiac echo pending - Will monitor cultures Pneumonia - Right middle lobe pneumonia - Concerns for aspiration pneumonia Plan - Speech therapy eval, dysphagia level 4 diet - Aspiration precautions - Sputum culture - Blood culture - Vancomycin - Meropenem Urinary tract infection - Follow urine culture - Antibiotics as above Bladder outlet obstruction, with markedly enlarged prostate - Jack catheter placed in the ER - Will resume on discharge, will have to follow-up with nephrology as outpatient Altered mental status - Likely secondary to UTI, pneumonia, sepsis, bladder outlet obstruction FLAVIO secondary to sepsis Full code Lovenox DVT prophylaxis PDMP PDMP Reviewed: Not Reviewed Diagnoses Sepsis A41.9 UTI (urinary tract infection) N39.0 Pneumonia J18.9
[2025-07-05] MEDS: pantoprazole 40 mg SDV IVP (13:58)
[2025-07-05] MEDS: dilTIAZem ER (24HR) 120 mg Capsule PO (20:43)
[2025-07-05 20:45] LABS: Albumin Level 2.8 g/dL (3.5-5.2); Alkaline Phosphatase 136 U/L (40-130); Blood Urea Nitrogen 20 mg/dL (8-23); Calcium 9.3 mg/dL (8.5-10.5); Carbon Dioxide 20 mmol/L (22-29); Chloride 99 mmol/L (98-107); Creatinine Clr Calc Pharmacy 76.0763; Globulin 4.7 g/dL (1.3-4.6); Glucose 157 mg/dL (65-115); Osmolality Calculated 292 mOsm/kg (285-295); Sodium 138 mmol/L (136-145); Total Protein 7.5 g/dL (6.6-8.7)
[2025-07-05 20:52] LABS: Alanine Aminotransferase 12 U/L (0-41); Anion Gap 22.2 (5-19); Aspartate Amino Transferase 27 U/L (0-40); Potassium 3.2 mmol/L (3.5-5.1)
--- NOTE | 2025-07-05 21:40 | ECG_ITS ---
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 Measurements Intervals [place] Rate: 107 P: 43 ME: 169 QRS: 7 QRSD: 113 T: 34 QT: 270 QTc: 361 Interpretive Statements SINUS TACHYCARDIA WITH OCCASIONAL VENTRICULAR PREMATURE COMPLEXES INFERIOR MYOCARDIAL INFARCTION , PROBABLY OLD [40+ ms Q WAVE AND/OR ST/T ABNORMALITY IN II/aVF] Compared to ECG 07/04/2025 21:37:33 Ventricular premature complex(es) now present Intraventricular conduction delay no longer present Myocardial infarct finding still present Electronically Signed On 07-05-2025 22:49:55 CDT by Uma Patel M.D. [email or web address]
[2025-07-05 22:16] LABS: ABG PCO2 30.8 mmHg (35-45); ABG PH Result 7.47 (7.35-7.45); Alveolar-Arterial Oxygen Gradi 6.3 mmHg (5-10); Arterial Blood Gas Hematocrit 37.8 % (42-52); Blood Gas Allen Test Pos; Blood Gas LPM 2.0 %; Blood Gas Operator Identificat JDB; Blood Gas Sample Site Radial, right; Blood Gas Sample Type Arterial; Carboxyhemoglobin 0.9 %THgb (0.4-20.1); Glucose Level-ABG 177.0 mg/dL (70-115); HCO3 ABG 22.4 mmol/L (22-26); Ionized Calcium Level - ABG 1.2 mmol/L (1.1-1.4); Methemoglobin 0.7 % (0.4-1.5); Oxygen Saturation ABG 92.8; PO2 ABG 62.8 mmHg (80.0-100.0); Potassium Level - ABG 2.5 mmol/L (3.5-5.0); Sodium Level - ABG 141.0 mmol/L (131-143)
[2025-07-05] MEDS: FUROsemide 10 mg/mL SDV 4mL 40 MG IVP (23:35)
[2025-07-06] VITALS (24 sets, daily range): BP systolic 84–141; BP diastolic 54–94; PULSE 88–126; RESP 11–39; TEMP 36.8; O2SAT 91–100
--- NOTE | 2025-07-06 04:24 | PC.NURSE ---
Attempted NIH scale. Pt remains confused, unable to follow all directions so NIH inaccurate.
[2025-07-06 04:52] LABS: Hematocrit 35.6 % (37-53); Hemoglobin 12.00 g/dL (11.27-16.99); Mean Corpuscular HGB Conc 33.7 g/dL (30-55); Mean Corpuscular Hemoglobin 25.5 pg (27-33); Mean Corpuscular Volume 75.7 fl (82-101); Nucleated Red Blood Cells % 0 %; Platelet Count 250 10^3/cmm (157-399); Red Blood Count 4.70 10^6/uL (3.85-5.65); White Blood Count 21.07 10^3/uL (3.29-11.43)
[2025-07-06 05:28] LABS: Alanine Aminotransferase 13 U/L (0-41); Albumin Level 3.0 g/dL (3.5-5.2); Alkaline Phosphatase 128 U/L (40-130); Anion Gap 22.8 (5-19); Aspartate Amino Transferase 27 U/L (0-40); Blood Urea Nitrogen 19 mg/dL (8-23); Calcium 9.6 mg/dL (8.5-10.5); Carbon Dioxide 22 mmol/L (22-29); Chloride 99 mmol/L (98-107); Creatinine Clr Calc Pharmacy 76.0763; Globulin 3.8 g/dL (1.3-4.6); Glucose 141 mg/dL (65-115); Magnesium 1.6 mg/dL (1.7-2.3); Osmolality Calculated 297 mOsm/kg (285-295); Sodium 141 mmol/L (136-145); Total Protein 6.8 g/dL (6.6-8.7)
[2025-07-06 05:43] LABS: Potassium 2.8 mmol/L (3.5-5.1)
[2025-07-06] MEDS: dilTIAZem ER (24HR) 120 mg Capsule PO (08:34)
--- NOTE | 2025-07-06 08:34 | CTR_ITS ---
PROCEDURE INFORMATION: Exam: CTA Chest With Contrast Exam date and time: 07/06/2025 5:41 PM Age: 80 years old Clinical indication: Other: Staph bactermia, source unclear; Additional info: Staph bacteremia, source unclear TECHNIQUE: Imaging protocol: Computed tomographic angiography of the chest with contrast. Exam focused on the arteries. 3D rendering (Not supervised by radiologist): MIP and/or 3D reconstructed images were created by the technologist. Radiation optimization: All CT scans at this facility use at least one of these dose optimization techniques: automated exposure control; mA and/or kV adjustment per patient size (includes targeted exams where dose is matched to clinical indication); or iterative reconstruction. Contrast material: [id number]; Contrast volume: 100 ml; Contrast route: INTRAVENOUS (IV); COMPARISON: CT angio chest PE protcl [id number] 10/07/2023 11:35 AM RADIATION DOSE METRICS: Total DLP (mGy-cm): 534.9 FINDINGS: Pulmonary arteries: No evidence of acute central, segmental, or proximal subsegmental pulmonary embolism. Aorta: No thoracic aortic aneurysm. Moderate aortic atherosclerosis. Partially imaged infrarenal abdominal aortic aneurysm. Thyroid: No actionable thyroid nodules by size criteria. Trachea: Diffuse airway wall thickening, similar to prior exams. Lungs: Moderate upper lobe predominant paraseptal and centrilobular emphysema. Ground-glass opacities in the bilateral upper lobes, to a lesser extent the left lower lobe, as well as consolidative opacities in the right middle lobe. 1.1 cm nodule in the posterior right lower lobe, unchanged dating back to 02/02/2022, most likely benign given stability. Pleural spaces: Small bilateral pleural effusions. Heart: No pericardial effusion. Coronary arteries: Multivessel coronary artery calcification and/or stents. Lymph nodes: Mild mediastinal, hilar, and subcarinal adenopathy, likely reactive. Bones/joints: No acute fracture. Degenerative changes. Soft tissues: Unremarkable. CT/CT angio chest PE protcl [id number] IMPRESSION: 1. Multifocal pneumonia. 2. Small bilateral pleural effusions. 3. 1.1 cm nodule in the posterior right lower lobe, unchanged dating back to 02/02/2022, most likely benign given stability. 4. Partially imaged infrarenal abdominal aortic aneurysm.
[2025-07-06] MEDS: magnesium sulfate premix 1 GM/100 ML PIGGYBACK IV (09:15)
[2025-07-06 13:22] LABS: Anion Gap 20.2 (5-19); Blood Urea Nitrogen 21 mg/dL (8-23); Calcium 9.7 mg/dL (8.5-10.5); Carbon Dioxide 26 mmol/L (22-29); Chloride 98 mmol/L (98-107); Creatinine Clr Calc Pharmacy 74.9799; Glucose 176 mg/dL (65-115); Osmolality Calculated 299 mOsm/kg (285-295); Potassium 3.2 mmol/L (3.5-5.1); Sodium 141 mmol/L (136-145)
[2025-07-06] MEDS: pantoprazole 40 mg SDV IVP (16:00)
--- NOTE | 2025-07-06 17:01 | PC.PHAR ---
Pt is from [facility]
[2025-07-06 17:16] LABS: NT Pro B Type Natriuretic Pept 27874 pg/mL (0-450)
--- NOTE | 2025-07-06 17:23 | PC.PHAR ---
verified and matched all medications on NOV from [facility]. Found some duplication and a couple small errors but corrected them and dc'd duplicates. 07/06/25
[2025-07-06] MEDS: iohexol 350 mg/mL 500 mL Btl (per mL) IV (17:35)
--- NOTE | 2025-07-06 18:51 | P.PN_ITS ---
Subjective 2 Subjective: Patient was seen this morning, currently alert oriented x 2, follows commands, does complain of shortness of breath, during my conversations A at times remains globally encephalopathic, I do not believe he understands the brevity of his situation, discussed to bacteremia, concerns for source of possible bacterial endocarditis, with aortic valve thickening, plans on transesophageal echocardiogram, CT angiogram the chest, however I do not get a really good indication that Jose understands the significance and the complexity of the situation Vitals/I&O/Wt Last Vital Signs Temp 98.2 F 07/05/25 02:30 Pulse 89 07/06/25 16:00 Resp 11 L 07/06/25 17:00 BP 121/78 07/06/25 17:00 Pulse Ox 91 07/06/25 18:03 O2 Del Method Nasal Cannula 07/06/25 08:41 O2 Flow Rate 2 07/06/25 08:41 07/06/25 07/06/25 07/06/25 06:59 14:59 22:59 Intake Total 360 / 7212.477 6731.0909 / 2155.0909 Output Total 1900 / 3200 750 / 750 Balance -1540 / -1991.342 3917.0909 / 1405.0909 Weight last 48 hrs Weight 76.657 kg Weight 79.379 kg Physical Exam 2 Const: COMMON NORMALS: no acute distress ORIENTATION/CONSCIOUSNESS: Yes awake and Yes oriented to person; not oriented to place and not oriented to time Resp: COMMON NORMALS: normal respiratory effort, No retractions and No use of accessory muscles AUSCULTATION: crackles and wheezes Cardio: COMMON NORMALS: regular rate, regular rhythm, S1 normal heart sound present and S2 normal heart sound present RATE: regular rate RHYTHM: r egular rhythm HEART SOUNDS: S1 normal heart sound present and S2 normal heart sound present GI: COMMON NORMALS: Normal to inspection, nondistended, normoactive bowel sounds present and non-tender Extremity: COMMON NORMALS: no pedal edema Neuro: SENSORIUM/ORIENTATION: Yes oriented to person, No oriented to place and No oriented to time OTHER: Can follow commands at times, but at times is globally encephalopathic Urinary Catheter Management: Jack: Cath Placed During This Visit: yes Reason for Continuing Indwelling Catheter: Accurate Measurement of Urinary Output in Critically Ill Patients Urinary Catheter Date of Insertion: 07/04/25 Urinary Catheter Time of Insertion: 12:32 Data 07/06/25 04:03 07/06/25 12:49 Micro: Microbiology 07/04/25 10:00 Urine Culture - Final Urine,Clean Catch Escherichia coli A&P Assessment and plan 1. Sepsis: 2. UTI (urinary tract infection): 3. Pneumonia: Plan: Sepsis - Secondary to urinary tract infection, - Pneumonia - Staphylococcus bacteremia Staphylococcus bacteremia -1 out of 4 blood cultures positive for Staphylococcus epidermidis -2 out of 4 blood cultures positive for Staphylococcus species - Cardiac echo shows thickened aortic valve -No artificial hardware - Plan -CT angiogram of the chest - Continue vancomycin - Cardiology will perform JOSE tomorrow Pneumonia - Right middle lobe pneumonia - Concerns for aspiration pneumonia Plan - Speech therapy eval, dysphagia level 4 diet - Aspiration precautions - Sputum culture - Blood culture - Vancomycin - Meropenem Urinary tract infection, urine cultures growing E. coli - Will de-escalate antibiotics based on clinical progress - Antibiotics as above Bladder outlet obstruction, with markedly enlarged prostate - Jack catheter placed in the ER - Will resume on discharge, will have to follow-up with nephrology as outpatient Altered mental status - Likely secondary to UTI, pneumonia, sepsis, bladder outlet obstruction, Staphylococcus bacteremia NSTEMI Cardiac echo CONCLUSIONS Normal left ventricular size and systolic function, EF 59% .mild left ventricular hypertrophy. Abnormal septal motion consistent with conduction abnormality. Mild hypokinesis of the basal inferior wall segment.Grade I/IV diastolic dysfunction (abnormal relaxation filling pattern), normal to mildly elevated filling pressures. Thickened aortic valve. No significant valvular lesions. There is no pericardial effusion. There are no intracardiac masses. Comparison with the previous study is difficult because of the difference in the technical quality. Cardiac cath in 2021 Conclusions 1. Severe mid and distal RCA stenosis. Status post successful revascularization of 2. mid RCA with TING x1 and distal RCA with balloon angioplasty.. 3. Mid Right Coronary Artery to Distal Right Coronary Artery was treated with a Balloon, and Drug Eluting Stent. 4. Distal Right Coronary Artery was treated with a Balloon. -Type I versus type II Plan - No chest pain complaints - Aspirin, Plavix - Therapeutic Lovenox FLAVIO secondary to sepsis Full code Lovenox DVT prophylaxis PDMP PDMP Reviewed: Not Reviewed Attestations 2 Medical Necessity Statement*: Patient requires hospitalization for staphylococcal bacteremia, encephalopathy, UTI, Diagnoses Sepsis A41.9 UTI (urinary tract infection) N39.0 Pneumonia J18.9
[2025-07-06] MEDS: FUROsemide 10 mg/mL SDV 4mL 40 MG IVP (20:20)
--- NOTE | 2025-07-06 21:32 | PM.CONSULT ---
Providers/Reason For Consult Consulting Physician/Specialty*: LIZ Patel MD Reason for Consult*: The patient is admitted to the hospital with altered mental status and features of sepsis. Blood culture showing gram-positive cocci. Consult is requested for performing a JOSE to rule out endocarditis Requesting Physician: Dr. Mosher Attending Physician: Johnson Mosher MD Primary Care Provider: Joe Bustillos DO History of Present Illness History of Present Illness Jose Perkins is a 80 year old male is admitted to the hospital he to the emergency room. This patient was brought to the hospital from an assisted care living facility. He he is not able to give any detailed history. Information is from the medical staff and from the records. This patient is known to have atherosclerotic heart diseas, high blood pressure, dyslipidemia, abdominal aortic aneurysm, COPD and multiple other problems. He was found to have features of a UTI. Elevated white cell count. Blood culture grew gram-positive cocci in one of the bottles. Chest x-ray showed possible right middle lobe pneumonia. Patient is currently on antibiotics. Transthoracic echocardiogram did not reveal any obvious vegetations. The aortic valve was found to be thickened. Patient has no previous history for any endocarditis or rheumatic valvular heart disease. Review of Systems Narrative: CONSTITUTIONAL: No fever or chills. EYES: No documented visual disturbance. ENT: No hoarseness of voice, auditory disturbances or sore throat. CARDIOVASCULAR: As mentioned above. RESPIRATORY: No shortness of breath GASTROINTESTINAL: No hematemesis or melena. GENITOURINARY: UTI as mentioned above INTEGUMENTARY: No skin rashes or history of skin cancer. NEURO: Altered mental status as mentioned above PSYCHIATRIC: No history of psychosis or major depression. HEMATOLOGIC: No bleeding disorders or significant anemia. ENDOCRINE: No history of polyuria or polydipsia. MUSCULOSKELETAL: No recent joint pain or swelling. ALLERGY/IMMUNOLOGY: Allergy to shellfish/penicillin Medications/Allergies Home Medications ?Medication ?Instructions ?Recorded ?Confirmed ?Last Taken ?Type clopidogrel 75 mg tablet 75 mg PO DAILY 12/02/19 07/04/25 07/04/25 08:00 History nitroglycerin 0.4 mg sublingual 0.4 mg sublingual Q5M PRN Chest 12/02/19 07/04/25 02/17/22 History tablet (Nitrostat) Pain chlorthalidone 25 mg tablet 25 mg PO DAILY #30 tabs 05/01/22 07/04/25 07/04/25 09:00 Rx meclizine 25 mg tablet 25 mg PO BID PRN dizziness #30 tabs 05/01/22 07/04/25 07/04/25 08:00 Rx lisinopril 5 mg tablet 5 mg PO DAILY PRN Blood Pressure 05/20/22 07/04/25 Unknown History acetaminophen 500 mg tablet 500 - 1,000 mg PO Q6H PRN 10/06/23 07/04/25 Unknown History Pain/fever diltiazem HCl 120 mg 120 mg PO DAILY 10/06/23 07/04/25 07/04/25 08:00 History capsule,extended release 24 hr isosorbide mononitrate 60 mg 60 mg PO BID 10/06/23 07/04/25 07/04/25 08:00 History tablet,extended release 24 hr magnesium hydroxide 400 mg/5 mL 30 ml PO DAILY PRN Constipation 10/06/23 07/04/25 Unknown History oral suspension (Milk of Magnesia) pantoprazole 40 mg tablet,delayed 40 mg PO QAM 10/06/23 07/06/25 07/04/25 08:00 History release tamsulosin 0.4 mg capsule 0.4 mg PO BEDTIME 10/06/23 07/04/25 07/03/25 19:00 History albuterol sulfate 90 mcg/actuation 2 inh inhalation Q8H PRN shortness 10/07/23 07/04/25 Unknown Rx aerosol inhaler of breath or wheezing #6.7 grams budesonide-formoterol HFA 160 2 puff inhalation BID 12 months 10/07/23 07/04/25 07/04/25 08:00 Rx mcg-4.5 mcg/actuation aerosol #10.2 grams inhaler (Symbicort) insulin lispro 100 unit/mL See Rx Instructions .Route 10/07/23 07/04/25 07/04/25 07:30 Rx subcutaneous pen (Humalog KwikPen .COMPLEX #15 mL (U-100) Insulin) potassium chloride 20 mEq 20 meq PO DAILY hypokalemia #180 10/07/23 07/04/25 07/03/25 18:00 Rx tablet,extended release tabs sitagliptin phosphate 50 mg tablet 50 mg PO DAILY #90 tabs 10/07/23 07/04/2507/04/25 08:00 Rx (Januvia) tiotropium bromide 1.25 2 inh inhalation DAILY #4 grams 10/07/23 07/04/25 07/03/25 19:00 Rx mcg/actuation mist for inhalation (Spiriva Respimat) mupirocin 2 % topical ointment 1 applic topical BID skin 04/11/24 07/04/25 07/03/25 Rx infection #22 grams wheel chair, standard with leg #1 ea 11/22/24 07/04/25 Unknown Rx rests fluoxetine 40 mg capsule 40 mg PO DAILY anxiety #30 caps 02/22/25 07/04/25 07/04/25 Rx bed side urinal #1 ea 03/07/25 07/04/25 Unknown Rx hydroxyzine HCl 50 mg tablet 50 mg PO TID anxiety or panic 03/14/25 07/04/25 07/04/25 08:00 Rx attack #90 tabs insulin glargine 100 unit/mL (3 5 unit SUBCUT BEDTIME 03/14/25 07/04/25 07/03/25 20:00 History mL) subcutaneous pen (Lantus Solostar U-100 Insulin) tramadol 50 mg tablet 50 mg PO Q8H PRN Pain 03/14/25 07/04/25 Unknown History trazodone 100 mg tablet 100 mg PO BEDTIME 03/14/25 07/04/25 07/03/25 20:00 History anxiety/depression/sleep pregabalin 75 mg capsule (Lyrica) 75 mg PO QDAY neuropathy #30 caps 05/09/25 07/04/25 07/04/25 08:00 Rx hydrocodone 5 mg-acetaminophen 325 1 tab PO TID pain/muscle tension 1 07/03/25 07/04/25 Unknown Rx mg tablet month #90 tabs albuterol sulfate 2.5 mg/3 mL 2.5 mg inhalation Q4H PRN 07/04/25 07/04/25 Unknown History (0.083 %) solution for nebulization Shortness Of Breath Or Wheezing aluminum-mag hydroxide-simethicone 30 ml PO QID PRN Acid Reflux 07/04/25 07/04/25 07/04/25 08:00 History 400 mg-400 mg-40 mg/5 mL oral susp ([place]one-2) aspirin 81 mg chewable tablet 81 mg PO DAILY 07/04/25 07/04/25 07/04/25 08:00 History (Carmen Chewable Low Dose Aspirin) bismuth subsalicylate 262 mg/15 mL 524 mg PO Q1H PRN Diarrhea 07/04/25 07/04/25 Unknown History oral suspension (Kaopectate (bismuth subsalicylate)) cholecalciferol (vitamin D3) 125 125 mcg PO DAILY 07/04/25 07/04/25 07/04/25 08:00 History mcg (5,000 unit) tablet (Vitamin D3) metformin 500 mg tablet 500 mg PO BID 07/04/25 07/04/25 07/04/25 08:00 History potassium chloride 10 mEq 20 meq PO DAILY 07/04/25 07/04/25 07/03/25 18:00 History tablet,extended release promethazine-DM 6.25 mg-15 mg/5 mL 5 ml PO Q6H PRN Cough 07/04/25 07/04/25 Unknown History oral syrup gabapentin 300 mg capsule 300 mg PO TID 07/06/25 07/06/25 07/04/25 History ondansetron 4 mg disintegrating 4 mg PO Q8H PRN Nausea And Vomiting 07/06/25 07/06/25 Unknown History tablet zinc gluconate 50 mg tablet 50 mg PO QAM 07/06/25 07/06/25 07/04/25 History Allergies Allergy/AdvReac Type Severity Reaction Status Date / Time Penicillins Allergy Unknown Unknown Verified 06/12/25 10:22 tirofiban (From Aggrastat Allergy Unknown Unknown Verified 06/12/25 10:22 Concentrate) shellfish derived Allergy ADR-Vomitin Verified 06/12/25 10:22 g lorazepam (From Ativan) AdvReac Severe ADR-Halluci Verified 06/12/25 10:22 nating Current Medications Generic Name Dose Route Start Last Admin Trade Name Freq PRN Reason Stop Dose Admin Acetaminophen 650 mg 07/04/25 14:39 07/05/25 04:54 Acetaminophen 325 Mg Tablet PO 650 mg Q6H PRN Administration Mild/Mod Pain Or Temp >/= 101 Albuterol Sulfate 2.5 mg 07/04/25 15:21 07/06/25 07:44 Albuterol 2.5 Mg/0.5 Ml Neb INHALATION 2.5 mg Q4H.RESPIRATORY PRN Administration SHORTNESS OF BREATH Aspirin 81 mg 07/05/25 05:00 07/06/25 04:45 Aspirin 81 Mg Ec Tablet PO 81 mg DAILY TOYA Administration Budesonide 0.5 mg 07/04/25 20:00 07/06/25 20:14 Budesonide 0.5 Mg/2 Ml Neb INHALATION 0.5 mg BID.RESPIRATORY TOYA Administration Clopidogrel Bisulfate 75 mg 07/05/25 05:00 07/06/25 04:46 Clopidogrel 75 Mg Tablet PO 75 mg DAILY TOYA Administration Enoxaparin Sodium 80 mg 07/05/25 01:15 07/06/25 12:52 Enoxaparin 100 Mg/Ml Syringe 1 mg/kg (80 mg) 80 mg SUBCUT Administration Q12H TOYA Fluoxetine HCl 40 mg 07/05/25 05:00 07/06/25 04:46 Fluoxetine 20 Mg Capsule PO 40 mg DAILY TOYA Administration Vancomycin HCl 1,000 mg/ 250 mls @ 250 mls/hr 07/05/25 12:15 07/06/25 14:09 Sodium Chloride IV Infused Q12H TOYA Infusion Insulin Human Lispro 0 unit 07/04/25 18:00 07/06/25 18:14 Insulin Lispro 100 Unit/1 Ml SUBCUT 2 unit TIDWM [facility] Administration Protocol Lisinopril 5 mg 07/06/25 05:00 07/06/25 04:46 Lisinopril 5 Mg Tablet PO 5 mg DAILY TOYA Administration Meropenem 500 mg 07/05/25 16:00 07/06/25 17:22 Meropenem 500 Mg Sdv IVP 500 mg Q8H TOYA Administration Protocol Morphine Sulfate 2 mg 07/04/25 14:39 07/05/25 03:04 Morphine 4 Mg/Ml Sdv 1 Ml IVP 2 mg Q4H PRN Administration SEVERE PAIN Pantoprazole Sodium 40 mg 07/04/25 14:45 07/06/25 16:00 Pantoprazole 40 Mg Sdv IVP 40 mg Q24H TOYA Administration Tamsulosin HCl 0.4 mg 07/06/25 21:00 07/06/25 20:20 Tamsulosin 0.4 Mg Capsule PO 0.4 mg BEDTIME TOYA Administration Trazodone HCl 100 mg 07/06/25 21:00 07/06/25 20:20 Trazodone 100 Mg Tablet PO 100 mg BEDTIME TOYA Administration PFSH Acute PFSH: Medical History Diabetes Acute hypoxic respiratory failure Influenza A Hypoxemia COPD exacerbation Weakness Myalgia HTN (hypertension) Late latent syphilis PSA elevation Orthostatic dizziness AAA (abdominal aortic aneurysm) Falls Hyperlipidemia Depression Peripheral neuropathy BPH (benign prostatic hyperplasia) GERD (gastroesophageal reflux disease) Tobacco abuse ASHD (arteriosclerotic heart disease) CVA (cerebral vascular accident) COPD (chronic obstructive pulmonary disease) Surgical History History of appendectomy S/P cataract extraction S/P tonsillectomy Family History Father Cancer Mother Diabetes Social History Smoking and tobacco/nicotine status: current every day tobacco/nicotine user cigarettes Packs smoked per day: 0.25 Alcohol intake: former Substance/Drug Use: former Adopted: No Caregiver/support person: No Lives independently: Yes Household members: none Housing: Apartment Marital status: Current occupational status: disabled Pets and animals: No Current gender identity: Male Vitals/I&O/Wt Last Vital Signs Temp 98.2 F 07/05/25 02:30 Pulse 96 07/06/25 20:00 Resp 20 H 07/06/25 20:00 BP 121/78 07/06/25 17:00 Pulse Ox 92 07/06/25 20:00 O2 Del Method Nasal Cannula 07/06/25 20:00 O2 Flow Rate 2 07/06/25 20:00 07/06/25 07/06/25 07/06/25 06:59 14:59 22:59 Intake Total 360 / 9972.395 7650.0909 / 2155.0909 118 / 2273.0909 Output Total 1900 / 3200 750 / 750 Balance -1540 / -3759.488 5948.0909 / 1405.0909 118 / 1523.0909 Weight last 48 hrs Weight 169 lb Weight 175 lb Physical Exam Narrative: GENERAL: Patient is confused. Answer to questions by yes or no HEENT: Minimal pallor. No icterus. NECK: Trachea appears to be central. No masses noted. No JVD or thyromegaly appreciated. RESPIRATORY: Chest is symmetrical. Breath sounds are bilaterally. Occasional coarse crackles. BREASTS: Deferred. HEART: The heart sounds are normal. No S3 or S4. No significant murmurs. No pericardial rub ABDOMEN: Very tenderness in the mid umbilical region : Deferred. RECTAL: Deferred. LYMPHATIC: No lymphadenopathy noted in the neck. EXTREMITIES: No edema or cyanosis. No clubbing. MUSCULOSKELETAL: No acute joint deformities or swelling SKIN: There are no significant rashes or ecchymosis NEUROPSYCHIATRIC: Patient is confused and somewhat agitated Urinary Catheter Management: Jack: Cath Placed During This Visit: yes Reason for Continuing Indwelling Catheter: Accurate Measurement of Urinary Output in Critically Ill Patients Urinary Catheter Date of Insertion: 07/04/25 Urinary Catheter Time of Insertion: 12:32 Data 07/07/25 04:16 07/07/25 07:28 Other Labs: Laboratory Last Values WBC 16.66 10^3/uL (3.29-11.43) H 07/07/25 04:16 RBC 5.07 10^6/uL (3.85-5.65) 07/07/25 04:16 Hgb 13.00 g/dL (11.27-16.99) 07/07/25 04:16 Hct 38.4 % (37-53) 07/07/25 04:16 MCV 75.7 fl (82-101) L 07/07/25 04:16 MCH 25.6 pg (27-33) L 07/07/25 04:16 MCHC 33.9 g/dL (30-55) 07/07/25 04:16 RDW 15.7 % (12.1-15.1) H 07/07/25 04:16 Plt Count 285 10^3/cmm (157-399) 07/07/25 04:16 MPV 9.8 fL (7.4-10.4) 07/07/25 04:16 Neut % (Auto) 77.3 % 07/07/25 04:16 Lymph % (Auto) 15.8 % 07/07/25 04:16 [place] % (Auto) 6.1 % 07/07/25 04:16 Eos % (Auto) 0.1 % 07/07/25 04:16 Baso % (Auto) 0.2 % 07/07/25 04:16 Neut # (Auto) 12.89 10^3/uL (1.8-7.7) H 07/07/25 04:16 Lymph # (Auto) 2.6 10^3/uL (0.8-4.8) 07/07/25 04:16 [place] # (Auto) 1.0 10^3/uL (0.2-0.9) H 07/07/25 04:16 Eos # (Auto) 0.0 10^3/uL (0.0-0.8) 07/07/25 04:16 Baso # (Auto) 0.0 10^3/uL (0.0-0.1) 07/07/25 04:16 Nucleated RBC % (auto) 0 % 07/07/25 04:16 Nucleated RBCs # 0.0 /100WBC 07/07/25 04:16 PT 15.90 SECONDS (12.1-14.9) H 07/04/25 10:02 INR 1.19 (0.8-1.2) 07/04/25 10:02 APTT 39.2 SECONDS (23.9-36.7) H 07/04/25 10:02 Specimen Type Arterial 07/05/25 22:05 Sample Site Radial, right 07/05/25 22:05 ABG pH 7.47 (7.35-7.45) H 07/05/25 22:05 ABG pCO2 30.8 mmHg (35-45) L 07/05/25 22:05 ABG pO2 62.8 mmHg (80.0-100.0) L 07/05/25 22:05 ABG HCO3 22.4 mmol/L (22-26) 07/05/25 22:05 ABG O2 Saturation 92.8 07/05/25 22:05 ABG Base Excess -0.6 mmol/L (-2.0-2.0) 07/05/25 22:05 Mario Test Pos 07/05/25 22:05 A-a O2 Gradient 6.3 mmHg (5-10) 07/05/25 22:05 Hematocrit 37.8 % (42-52) L 07/05/25 22:05 Hgb O2 Saturation 91.3 % (95-100) L 07/05/25 22:05 Carboxyhemoglobin 0.9 %THgb (0.4-20.1) 07/05/25 22:05 Methemoglobin 0.7 % (0.4-1.5) 07/05/25 22:05 Total Hemoglobin 12.3 g/dL (14-18) L 07/05/25 22:05 Sodium 141.0 mmol/L (131-143) 07/05/25 22:05 Potassium 2.5 mmol/L (3.5-5.0) L 07/05/25 22:05 Glucose 177.0 mg/dL (70-115) H 07/05/25 22:05 Ionized Calcium 1.2 mmol/L (1.1-1.4) 07/05/25 22:05 O2 Delivery Device Nc 07/05/25 22:05 O2 Liters/Min 2.0 % 07/05/25 22:05 Artists' Model ID [id number] 07/05/25 22:05 Sodium 144 mmol/L (136-145) 07/07/25 04:16 Potassium 3.0 mmol/L (3.5-5.1) L 07/07/25 07:28 Chloride 97 mmol/L (98-107) L 07/07/25 04:16 Carbon Dioxide 30 mmol/L (22-29) H 07/07/25 04:16 Anion Gap 19.4 (5-19) H 07/07/25 04:16 BUN 19 mg/dL (8-23) 07/07/25 04:16 Creatinine 0.9 mg/dL (0.7-1.2) 07/07/25 04:16 GFR Calculation Not Reportable 07/07/25 04:16 Glucose 147 mg/dL (65-115) H 07/07/25 04:16 POC Glucose 178 mg/dL (70-110) H 07/07/25 07:21 Calculated Osmolality 303 mOsm/kg (285-295) H 07/07/25 04:16 Lactic Acid 1.6 mmol/L (0.5-2.2) 07/04/25 10:02 Calcium 10.5 mg/dL (8.5-10.5) 07/07/25 04:16 Phosphorus 1.8 mg/dL (2.5-4.5) L 07/07/25 04:16 Magnesium 1.5 mg/dL (1.7-2.3) L 07/07/25 04:16 Total Bilirubin 1.7 mg/dL (0.15-1.2) H 07/07/25 04:16 AST 34 U/L (0-40) 07/07/25 04:16 ALT 17 U/L (0-41) 07/07/25 04:16 Alkaline Phosphatase 117 U/L (40-130) 07/07/25 04:16 Troponin T Baseline 26 ng/L (0-15) H 07/04/25 14:04 Troponin T 120 Minute 37.76 ng/L (0-15) H 07/04/25 16:41 Delta Troponin T 11.76 ABS# (0-10) H* 07/04/25 16:41 Troponin T Hi Sens 6Hr 60.49 ng/L (0-15) H 07/04/25 20:03 Troponin T Hi Sens 6Hr Delta 34.49 ng/L (0-12) H* 07/04/25 20:03 C-Reactive Protein 312.3 mg/L (0.0-4.9) H 07/04/25 10:02 NT-Pro-B Natriuret Pep 02193 pg/mL (0-450) H 07/06/25 12:49 Total Protein 7.6 g/dL (6.6-8.7) 07/07/25 04:16 Albumin 3.4 g/dL (3.5-5.2) L 07/07/25 04:16 Globulin 4.2 g/dL (1.3-4.6) 07/07/25 04:16 Triglycerides 116 mg/dL (0-150) 07/04/25 10:02 Cholesterol 99 mg/dL (0-200) 07/04/25 10:02 LDL Cholesterol, Calc 51 mg/dL (50-129) 07/04/25 10:02 HDL Cholesterol 25 mg/dL (60-100) L 07/04/25 10:02 LDL/HDL Ratio 2.04 RATIO (0.00-3.22) 07/04/25 10:02 Cholesterol/HDL Ratio 3.96 mg/dL (1.0-5.00) 07/04/25 10:02 Procalcitonin 4.79 ng/mL (0-0.5) H 07/04/25 10:02 TSH 0.62 uIU/mL (0.27-4.20) 07/04/25 10:02 Urine Color Dark yellow (Yellow) A 07/04/25 10:00 Urine Appearance Cloudy (CLEAR) A 07/04/25 10:00 Urine pH 5.5 (5-7) 07/04/25 10:00 Ur Specific [place] 1.022 (1.005-1.030) 07/04/25 10:00 Urine Protein 1+ (Negative) A 07/04/25 10:00 Urine Glucose (UA) Negative (Normal) 07/04/25 10:00 Urine Ketones 1+ (Negative) H 07/04/25 10:00 Urine Blood 1+ (Negative) A 07/04/25 10:00 Urine Nitrate Positive (Negative) A 07/04/25 10:00 Urine Bilirubin 1+ (Negative) H 07/04/25 10:00 Urine Urobilinogen 1.0 mg/dL (Negative) 07/04/25 10:00 Ur Leukocyte Esterase 3+ (Negative) A 07/04/25 10:00 Urine RBC 5-10 /hpf (0-2) H 07/04/25 10:00 Urine WBC 51-100 /hpf (0-5) H 07/04/25 10:00 Ur Squamous Epith Cells 5-10 /hpf (0-5) H 07/04/25 10:00 Amorphous Sediment Not Reportable 07/04/25 10:00 Urine Bacteria 3+ /hpf (NONE) H 07/04/25 10:00 Urine Mucus 1+ /hpf 07/04/25 10:00 Vancomycin Trough 14.5 ug/mL (10-15) 07/07/25 00:00 Influenza A (PCR) Negative (Negative) 07/04/25 10:33 Influenza Type B (PCR) Negative (Negative) 07/04/25 10: RSV (PCR) Negative (Negative) 07/04/25 10:33 SARS-CoV-2 (PCR) Negative (Negative) 07/04/25 10:33 Micro: Microbiology 07/04/25 10:00 Urine Culture - Final Urine,Clean Catch Escherichia coli A&P Assessment and plan 1. Gram-positive cocci bacteremia: The source of the infection is not clear at this time. Patient has cellulitis, possible middle lobe pneumonia and UTI. 2. Abdominal aortic aneurysm (AAA) without rupture, unspecified part: Patient had a large abdominal aortic aneurysm. The current status is not known. He was supposed to get aneurysm surgery in [place]. But did not have the details at this time. 3. Type 2 diabetes mellitus with other circulatory complication, without long-term current use of insulin: Aggressive management of the diabetes would be appropriate 4. Atherosclerosis of [place] coronary artery of [place] heart without angina pectoris: Patient had PCI of the right coronary artery in 2021. He had high-grade lesions in the circumflex artery which were not amenable for percutaneous intervention. Currently has no chest pain. 5. Altered mental status, unspecified altered mental status type: This could be multifactorial. Sepsis could be part of the problem. 6. Pneumonia of right middle lobe due to infectious organism: Patient is on antibiotic. 7. Urinary tract infection without hematuria, site unspecified: Management as per the primary Plan: Plan to have the JOSE. No history for GI bleed or swallowing difficulty. Patient does not seem to have any contraindications at this time. I will try to get hold of the family to discuss about this. No family members are available at this time. Will keep n.p.o. after midnight PDMP PDMP Reviewed: Not Reviewed Consult Attestations Medical Necessity Statement: Deferred to the primary Coding Level of Care Code 75227 Diagnoses Gram-positive cocci bacteremia R78.81 Abdominal aortic aneurysm (AAA) without rupture, unspecified part I71.40 Abdominal aorta location: unspecified Presence of rupture: without rupture Type 2 diabetes mellitus with other circulatory complication, without long-term current use of insulin E11.59 Diabetes mellitus complication detail: with other circulatory complications Diabetes mellitus complication status: with circulatory complication Diabetes mellitus senior care insulin use: without senior care use Diabetes mellitus type: type 2 Atherosclerosis of [place] coronary artery of [place] heart without angina pectoris I25.10 Coronary Disease-Associated Artery/Lesion type: [place] artery Altered mental status, unspecified altered mental status type R41.82 Altered mental status type: unspecified Pneumonia of right middle lobe due to infectious organism J18.9 Pneumonia type: due to unspecified organism Urinary tract infection without hematuria, site unspecified N39.0 Hematuria presence: without hematuria Urinary tract infection type: site unspecified
[2025-07-07] VITALS (26 sets, daily range): BP systolic 84–141; BP diastolic 70–101; PULSE 99–117; RESP 15–32; TEMP 36.4–37.5; O2SAT 78–98
[2025-07-07] MEDS: morphine 4 mg/mL SDV 1 mL 2 MG IVP (01:00)
--- NOTE | 2025-07-07 03:41 | PC.NURSE ---
Agitation: patient continues to be agitated, repeatedly climbing out of bed and pulling at lines/tubes. Redirection and reorientation unsuccessful. Dr. Joe made aware, no new orders at this time.
[2025-07-07 04:26] LABS: Hematocrit 38.4 % (37-53); Hemoglobin 13.00 g/dL (11.27-16.99); Mean Corpuscular HGB Conc 33.9 g/dL (30-55); Mean Corpuscular Hemoglobin 25.6 pg (27-33); Mean Corpuscular Volume 75.7 fl (82-101); Nucleated Red Blood Cells % 0 %; Platelet Count 285 10^3/cmm (157-399); Red Blood Count 5.07 10^6/uL (3.85-5.65); White Blood Count 16.66 10^3/uL (3.29-11.43)
[2025-07-07 04:44] LABS: Alanine Aminotransferase 17 U/L (0-41); Albumin Level 3.4 g/dL (3.5-5.2); Alkaline Phosphatase 117 U/L (40-130); Anion Gap 19.4 (5-19); Aspartate Amino Transferase 34 U/L (0-40); Blood Urea Nitrogen 19 mg/dL (8-23); Calcium 10.5 mg/dL (8.5-10.5); Carbon Dioxide 30 mmol/L (22-29); Chloride 97 mmol/L (98-107); Creatinine Clr Calc Pharmacy 66.6488; Globulin 4.2 g/dL (1.3-4.6); Glucose 147 mg/dL (65-115); Magnesium 1.5 mg/dL (1.7-2.3); Osmolality Calculated 303 mOsm/kg (285-295); Sodium 144 mmol/L (136-145); Total Protein 7.6 g/dL (6.6-8.7)
[2025-07-07 04:46] LABS: Potassium 2.4 mmol/L (3.5-5.1)
[2025-07-07] MEDS: lidocaine 1% 5 ML in potassium chloride premix 100 ML 26.25 ML IV ×2 (05:19→09:39)
--- NOTE | 2025-07-07 06:57 | PC.NURSE ---
NPO: Dr. Joe gave telephone orders to hold PO morning meds as patient is NPO.
[2025-07-07 07:54] LABS: Potassium 3.0 mmol/L (3.5-5.1)
--- NOTE | 2025-07-07 08:05 | ANES.PREANE2 ---
Pre-Anesthetic Assessment Height/Weight: Height 1.78 m Weight 75.041 kg Temp Pulse Resp BP Pulse Ox O2 Del Method O2 Flow Rate 97.9 F 100 20 H 125/79 92 Room Air 2 07/07/25 00:00 07/07/25 08:41 07/07/25 08:41 07/07/25 08:00 07/07/25 08:41 07/07/25 08:41 07/07/25 04:00 Preop Diagnosis: Gram-positive bacteremia JOSE Familial anesthetic complications: None Was Beta Roverto taken within 24 hours: N/A Was Clonidine taken within 24 hours: N/A Last intake: > 8 hrs Exam alert, clear to auscultation bilaterally and regular rate & rhythm Pulmonary pneumonia CV/HEM Coronary Artery Disease AAA Urinary Tract Infection Metabolic Diabetes Mellitus Anesthetic Plan ASA status: 4 Anesthesia: MAC Risk of > 500 ml blood loss (7ml/kg in children): No Medications/Allergies Home Medications ?Medication ?Instructions ?Recorded ?Confirmed ?Last Taken ?Type clopidogrel 75 mg tablet 75 mg PO DAILY 12/02/19 07/04/25 07/04/25 08:00 History nitroglycerin 0.4 mg sublingual 0.4 mg sublingual Q5M PRN Chest 12/02/19 07/04/25 02/17/22 History tablet (Nitrostat) Pain chlorthalidone 25 mg tablet 25 mg PO DAILY #30 tabs 05/01/22 07/04/25 07/04/25 09:00 Rx meclizine 25 mg tablet 25 mg PO BID PRN dizziness #30 tabs 05/01/22 07/04/25 07/04/25 08:00 Rx lisinopril 5 mg tablet 5 mg PO DAILY PRN Blood Pressure 05/20/22 07/04/25 Unknown History acetaminophen 500 mg tablet 500 - 1,000 mg PO Q6H PRN 10/06/23 07/04/25 Unknown History Pain/fever diltiazem HCl 120 mg 120 mg PO DAILY 10/06/23 07/04/25 07/04/25 08:00 History capsule,extended release 24 hr isosorbide mononitrate 60 mg 60 mg PO BID 10/06/23 07/04/25 07/04/25 08:00 History tablet,extended release 24 hr magnesium hydroxide 400 mg/5 mL 30 ml PO DAILY PRN Constipation 10/06/23 07/04/25 Unknown History oral suspension (Milk of Magnesia) pantoprazole 40 mg tablet,delayed 40 mg PO QAM 10/06/23 07/06/25 07/04/25 08:00 History release tamsulosin 0.4 mg capsule 0.4 mg PO BEDTIME 10/06/23 07/04/25 07/03/25 19:00 History albuterol sulfate 90 mcg/actuation 2 inh inhalation Q8H PRN shortness 10/07/23 07/04/25 Unknown Rx aerosol inhaler of breath or wheezing #6.7 grams budesonide-formoterol HFA 160 2 puff inhalation BID 12 months 10/07/23 07/04/25 07/04/25 08:00 Rx mcg-4.5 mcg/actuation aerosol #10.2 grams inhaler (Symbicort) insulin lispro 100 unit/mL See Rx Instructions .Route 10/07/23 07/04/25 07/04/25 07:30 Rx subcutaneous pen (Humalog KwikPen .COMPLEX #15 mL (U-100) Insulin) potassium chloride 20 mEq 20 meq PO DAILY hypokalemia #180 10/07/23 07/04/25 07/03/25 18:00 Rx tablet,extended release tabs sitagliptin phosphate 50 mg tablet 50 mg PO DAILY #90 tabs 10/07/23 07/04/25 07/04/25 08:00 Rx (Januvia) tiotropium bromide 1.25 2 inh inhalation DAILY #4 grams 10/07/23 07/04/25 07/03/25 19:00 Rx mcg/actuation mist for inhalation (Spiriva Respimat) mupirocin 2 % topical ointment 1 applic topical BID skin 04/11/24 07/04/25 07/03/25 Rx infection #22 grams wheel chair, standard with leg #1 ea 11/22/24 07/04/25 Unknown Rx rests fluoxetine 40 mg capsule 40 mg PO DAILY anxiety #30 caps 02/22/25 07/04/25 07/04/25 Rx bed side urinal #1 ea 03/07/25 07/04/25 Unknown Rx hydroxyzine HCl 50 mg tablet 50 mg PO TID anxiety or panic 03/14/25 07/04/25 07/04/25 08:00 Rx attack #90 tabs insulin glargine 100 unit/mL (3 5 unit SUBCUT BEDTIME 03/14/25 07/04/25 07/03/25 20:00 History mL) subcutaneous pen (Lantus Solostar U-100 Insulin) tramadol 50 mg tablet 50 mg PO Q8H PRN Pain 03/14/25 07/04/25 Unknown History trazodone 100 mg tablet 100 mg PO BEDTIME 03/14/25 07/04/25 07/03/25 20:00 History anxiety/depression/sleep pregabalin 75 mg capsule (Lyrica) 75 mg PO QDAY neuropathy #30 caps 05/09/25 07/04/25 07/04/25 08:00 Rx hydrocodone 5 mg-acetaminophen 325 1 tab PO TID pain/muscle tension 1 07/03/25 07/04/25 Unknown Rx mg tablet month #90 tabs albuterol sulfate 2.5 mg/3 mL 2.5 mg inhalation Q4H PRN 07/04/25 07/04/25 Unknown History (0.083 %) solution for nebulization Shortness Of Breath Or Wheezing aluminum-mag hydroxide-simethicone 30 ml PO QID PRN Acid Reflux 07/04/25 07/04/25 07/04/25 08:00 History 400 mg-400 mg-40 mg/5 mL oral susp (Almacone-2) aspirin 81 mg chewable tablet 81 mg PO DAILY 07/04/25 07/04/25 07/04/25 08:00 History (Carmen Chewable Low Dose Aspirin) bismuth subsalicylate 262 mg/15 mL 524 mg PO Q1H PRN Diarrhea 07/04/25 07/04/25 Unknown History oral suspension (Kaopectate (bismuth subsalicylate)) cholecalciferol (vitamin D3) 125 125 mcg PO DAILY 07/04/25 07/04/25 07/04/25 08:00 History mcg (5,000 unit) tablet (Vitamin D3) metformin 500 mg tablet 500 mg PO BID 07/04/25 07/04/25 07/04/25 08:00 History potassium chloride 10 mEq 20 meq PO DAILY 07/04/25 07/04/25 07/03/25 18:00 History tablet,extended release promethazine-DM 6.25 mg-15 mg/5 mL 5 ml PO Q6H PRN Cough 07/04/25 07/04/25 Unknown History oral syrup gabapentin 300 mg capsule 300 mg PO TID 07/06/25 07/06/25 07/04/25 History ondansetron 4 mg disintegrating 4 mg PO Q8H PRN Nausea And Vomiting 07/06/25 07/06/25 Unknown History tablet zinc gluconate 50 mg tablet 50 mg PO QAM 07/06/25 07/06/25 07/04/25 History Allergies Allergy/AdvReac Type Severity Reaction Status Date / Time Penicillins Allergy Unknown Unknown Verified 06/12/25 10:22 tirofiban (From Aggrastat Allergy Unknown Unknown Verified 06/12/25 10:22 Concentrate) shellfish derived Allergy ADR-Vomitin Verified 06/12/25 10:22 g lorazepam (From Ativan) AdvReac Severe ADR-Halluci Verified 06/12/25 10:22 nating Current Medications Generic Name Dose Route Start Last Admin Trade Name Freq PRN Reason Stop Dose Admin Acetaminophen 650 mg 07/04/25 14:39 07/05/25 04:54 Acetaminophen 325 Mg Tablet PO 650 mg Q6H PRN Administration Mild/Mod Pain Or Temp >/= 101 Albuterol Sulfate 2.5 mg 07/04/25 15:21 07/07/25 08:40 Albuterol 2.5 Mg/0.5 Ml Neb INHALATION 2.5 mg Q4H.RESPIRATORY PRN Administration SHORTNESS OF BREATH Aspirin 81 mg 07/05/25 05:00 07/07/25 06:56 Aspirin 81 Mg Ec Tablet PO Not Given DAILY TOYA Budesonide 0.5 mg 07/04/25 20:00 07/07/25 08:40 Budesonide 0.5 Mg/2 Ml Neb INHALATION 0.5 mg BID.RESPIRATORY TOYA Administration Clopidogrel Bisulfate 75 mg 07/05/25 05:00 07/07/25 06:56 Clopidogrel 75 Mg Tablet PO Not Given DAILY TOYA Enoxaparin Sodium 80 mg 07/05/25 01:15 07/07/25 00:25 Enoxaparin 100 Mg/Ml Syringe 1 mg/kg (80 mg) 80 mg SUBCUT Administration Q12H TOYA Fluoxetine HCl 40 mg 07/05/25 05:00 07/07/25 06:57 Fluoxetine 20 Mg Capsule PO Not Given DAILY TOYA Vancomycin HCl 1,000 mg/ 250 mls @ 250 mls/hr 07/05/25 12:15 07/07/25 02:01 Sodium Chloride IV Infused Q12H TOYA Infusion Lidocaine HCl 5 ml/ Potassium 105 mls @ 26.25 mls/hr 07/07/25 05:00 07/07/25 05:19 Chloride IV 07/07/25 12:59 26.25 mls/hr Q4H TOYA Administration Insulin Human Lispro 0 unit 07/04/25 18:00 07/07/25 07:33 Insulin Lispro 100 Unit/1 Ml SUBCUT 2 unit TIDWM TOYA Administration Protocol Lisinopril 5 mg 07/06/25 05:00 07/07/25 06:57 Lisinopril 5 Mg Tablet PO Not Given DAILY TOYA Meropenem 500 mg 07/05/25 16:00 07/07/25 07:33 Meropenem 500 Mg Sdv IVP 500 mg Q8H TOYA Administration Protocol Morphine Sulfate 2 mg 07/04/25 14:39 07/07/25 01:00 Morphine 4 Mg/Ml Sdv 1 Ml IVP 2 mg Q4H PRN Administration SEVERE PAIN Pantoprazole Sodium 40 mg 07/04/25 14:45 07/06/25 16:00 Pantoprazole 40 Mg Sdv IVP 40 mg Q24H TOYA Administration Tamsulosin HCl 0.4 mg 07/06/25 21:00 07/06/25 20:20 Tamsulosin 0.4 Mg Capsule PO 0.4 mg BEDTIME TOYA Administration Trazodone HCl 100 mg 07/06/25 21:00 07/06/25 20:20 Trazodone 100 Mg Tablet PO 100 mg BEDTIME TOYA Administration PFSH Anesthesia Medical History (Updated 07/06/25 @ 22:44 by Uma Patel MD) Type 2 diabetes mellitus with other circulatory complication, without long-term current use of insulin Acute hypoxic respiratory failure Influenza A Hypoxemia COPD exacerbation Weakness Myalgia HTN (hypertension) Late latent syphilis PSA elevation Orthostatic dizziness AAA (abdominal aortic aneurysm) Falls Hyperlipidemia Depression Peripheral neuropathy BPH (benign prostatic hyperplasia) GERD (gastroesophageal reflux disease) Tobacco abuse ASHD (arteriosclerotic heart disease) CVA (cerebral vascular accident) COPD (chronic obstructive pulmonary disease) Surgical History History of appendectomy S/P cataract extraction S/P tonsillectomy Family History Father Cancer Mother Diabetes Social History Smoking and tobacco/nicotine status: current every day tobacco/nicotine user cigarettes Packs smoked per day: 0.25 Alcohol intake: former Substance/Drug Use: former Adopted: No Caregiver/support person: No Lives independently: Yes Household members: none Housing: Apartment Marital status: Current occupational status: disabled Pets and animals: No Current gender identity: Male Data Anesthesia 07/07/25 04:16 07/07/25 07:28 Short CBC 07/06/25 07/07/25 Range/Units 04:03 04:16 WBC 21.07 H 16.66 H (3.29-11.43) 10^3/uL Hgb 12.00 13.00 (11.27-16.99) g/dL Hct 35.6 L 38.4 (37-53) % MCV 75.7 L 75.7 L (82-101) fl Plt Count 250 285 (157-399) 10^3/cmm Neut % (Auto) 85.4 77.3 % Neut # (Auto) 17.97 H 12.89 H (1.8-7.7) 10^3/uL BMP 07/05/25 07/06/25 07/06/25 20:03 04:03 12:49 Sodium 138 141 141 Potassium 3.2 L 2.8 L* 3.2 L Chloride 99 99 98 Carbon Dioxide 20 L 22 26 BUN 20 19 21 Creatinine 0.7 0.7 0.8 Glucose 157 H 141 H 176 H Calcium 9.3 9.6 9.7 07/07/25 07/07/25 04:16 07:28 Sodium 144 Potassium 2.4 L* D 3.0 L Chloride 97 L Carbon Dioxide 30 H BUN 19 Creatinine 0.9 Glucose 147 H Calcium 10.5 Cardiac Enzymes 07/06/25 Range/Units 12:49 NT-Pro-B Natriuret Pep 05797 H (0-450) pg/mL Liver Function 07/05/25 07/06/25 07/07/25 Range/Units 20:03 04:03 04:16 Total Bilirubin 1.0 1.0 1.7 H (0.15-1.2) mg/dL AST 27 27 34 (0-40) U/L ALT 12 13 17 (0-41) U/L Alkaline Phosphatase 136 H 128 117 (40-130) U/L Albumin 2.8 L 3.0 L 3.4 L (3.5-5.2) g/dL ABG 07/05/25 22:05 Specimen Type Arterial Sample Site Radial, right ABG pH 7.47 H ABG pCO2 30.8 L ABG pO2 62.8 L ABG HCO3 22.4 ABG O2 Saturation 92.8 ABG Base Excess -0.6 A-a O2 Gradient 6.3 O2 Delivery Device Nc O2 Liters/Min 2.0 Microbiology 07/04/25 10:00 Urine Culture - Final Urine,Clean Catch Escherichia coli Cardiac Studies: Echocardiogram 07/05/25 Sestamibi Stress Test (Cardiology) 06/12/21 Holter Monitor 09/06/20
[2025-07-07] MEDS: magnesium sulfate premix 1 GM/100 ML PIGGYBACK IV (08:08)
--- NOTE | 2025-07-07 08:09 | W.PM.OPSUD ---
Surgery/Procedure H&P Update DATE OF PROCEDURE: July 07, 2025 DATE H&P PERFORMED: 07/06/25 H&P UPDATE INFORMATION: I have reviewed H&P completed within last 30 days, I have examined patient prior to procedure and No changes to prior documentation PREOP DIAGNOSIS: Gram-positive bacteremia PRIMARY INDICATION FOR PROCEDURE: Patient with altered mental status and sepsis. Gram-positive bacteremia PLANNED PROCEDURE: JOSE with IV sedation by anesthesia
--- NOTE | 2025-07-07 08:52 | ANE.PACU2 ---
Inpatient post-anesthesia follow up: Airway intact: Yes Vital signs: Temperature 97.9 F Pulse Rate 100 Respiratory Rate 20 Blood Pressure 125/79 Pulse Oximetry 92 Oxygen Delivery Me thod Room Air Oxygen Flow Rate 2 Fraction of Inspir ed Oxygen Hydration adequate: Yes Nausea and vomiting: No Pain level: 1 Mental status: Baseline
--- NOTE | 2025-07-07 09:01 | PM.OP ---
Operative Report Date of procedure: July 07, 2025 Surgeon: Uma Patel MD Procedure: This patient underwent JOSE with IV sedation on administered by anesthesia. He tolerated the procedure well and there are no complications. He was found to have moderate mitral regurgitation. Thickened aortic valve. No intracardiac masses or vegetations. Mild to moderate diffuse plaques in the aorta.
[2025-07-07] MEDS: haloperidol inj 5 mg/mL INJ 1 mL 2 MG IM (09:02)
--- NOTE | 2025-07-07 10:50 | PC.SOCIAL ---
IMM Update pg 2 of IMM Updated and reviewed w/ patient. Copy provided and copy dated, initialed and placed in chart.
--- NOTE | 2025-07-07 11:24 | PC.OT ---
Pt. on hold at request of nursing. Will attempt OT treatment at later time.
--- NOTE | 2025-07-07 14:08 | PC.NURSE ---
Contacted Physician at 0900 and 1000 due to increase agitation, patient pulling at IVs, dee, and monitoring equipment. Patient also seen groping staff members. New orders given. See MAR for medication administration
[2025-07-07] MEDS: pantoprazole 40 mg SDV IVP (15:13)
--- NOTE | 2025-07-07 16:12 | P.PN_ITS ---
Subjective 2 Subjective: - Patient was seen this morning - Status post transesophageal echocardio gram - He is encephalopathic this morning - Alert to person, not to place, to time , he follows some commands but remains agitated and confused Vitals/I&O/Wt Last Vital Signs Temp 97.9 F 07/07/25 12:00 Pulse 111 H 07/07/25 13:47 Resp 23 H 07/07/25 13:00 BP 125/86 07/07/25 13:00 Pulse Ox 88 L 07/07/25 13:00 O2 Del Method Room Air 07/07/25 08:41 O2 Flow Rate 2 07/07/25 04:00 07/07/25 07/07/25 07/07/25 06:59 14:59 22:59 Intake Total 250 / 2523.0909 560 / 560 Output Total 2700 / 3450 Balance -2450 / -926.9091 560 / 560 Weight last 48 hrs Weight 75.041 kg Weight 76.657 kg Physical Exam 2 Const: COMMON NORMALS: no acute distress ORIENTATION/CONSCIOUSNESS: Yes awake, Yes oriented to person and Yes confused; not oriented to place and not oriented to time Resp: COMMON NORMALS: normal respiratory effort, No retractions, No use of accessory muscles and clear to auscultation bilaterally AUSCULTATION: clear to auscultation bilaterally Cardio: COMMON NORMALS: regular rate, regular rhythm, S1 normal heart sound present and S2 normal heart sound present RATE: regular rate RHYTHM: r egular rhythm HEART SOUNDS: S1 normal heart sound present and S2 normal heart sound present GI: COMMON NORMALS: Normal to inspection, nondistended, normoactive bowel sounds present and non-tender Extremity: COMMON NORMALS: no pedal edema Neuro: SENSORIUM/ORIENTATION: Yes oriented to person, No oriented to place and No oriented to time Urinary Catheter Management: Jack: Cath Placed During This Visit: yes Reason for Continuing Indwelling Catheter: Accurate Measurement of Urinary Output in Critically Ill Patients Urinary Catheter Date of Insertion: 07/04/25 Urinary Catheter Time of Insertion: 12:32 Data 07/07/25 04:16 07/07/25 07:28 Micro: Microbiology 07/04/25 10:11 Blood Culture - Preliminary Blood Staphylococcus species Streptococcus pneumoniae 07/07/25 14:28 Blood Culture - Preliminary Blood SPECIMEN COLLECTED 07/07/25 14:25 Blood Culture - Preliminary Blood SPECIMEN COLLECTED 07/04/25 10:00 Urine Culture - Final Urine,Clean Catch Escherichia coli A&P Assessment and plan 1. Sepsis: 2. UTI (urinary tract infection): 3. Pneumonia: Plan: Sepsis - Secondary to urinary tract infection, - Pneumonia - Staphylococcus bacteremia Staphylococcus bacteremia -1 out of 4 blood cultures positive for Staphylococcus epidermidis -1 out of 4 blood cultures positive for Staphylococcus species - Cardiac echo shows thickened aortic valve -No artificial hardware - Plan -CT angiogram of the chest CT/CT angio chest PE protcl [id number] IMPRESSION: 1. Multifocal pneumonia. 2. Small bilateral pleural effusions. 3. 1.1 cm nodule in the posterior right lower lobe, unchanged dating back to 02/02/2022, most likely benign given stability. 4. Partially imaged infrarenal abdominal aortic aneurysm. - Continue vancomycin - Transesophageal echocardiogram, no evidence of valvular vegetations Pneumonia - Right middle lobe pneumonia - Concerns for aspiration pneumonia - 1 out of 4 blood culture positive for strep pneumoniae -CT angiogram of the chest shows multifocal pneumonia Plan - Speech therapy eval, dysphagia level 4 diet - Aspiration precautions - Sputum culture - Blood culture - Vancomycin - Meropenem Urinary tract infection, urine cultures growing E. coli - Will de-escalate antibiotics based on clinical progress - Antibiotics as above Bladder outlet obstruction, with markedly enlarged prostate - Jack catheter placed in the ER - Will resume on discharge, will have to follow-up with nephrology as outpatient Altered mental status - Likely secondary to UTI, pneumonia, sepsis, bladder outlet obstruction, Staphylococcus bacteremia - Currently associated anesthetic effect NSTEMI Cardiac echo CONCLUSIONS Normal left ventricular size and systolic function, EF 59% .mild left ventricular hypertrophy. Abnormal septal motion consistent with conduction abnormality. Mild hypokinesis of the basal inferior wall segment.Grade I/IV diastolic dysfunction (abnormal relaxation filling pattern), normal to mildly elevated filling pressures. Thickened aortic valve. No significant valvular lesions. There is no pericardial effusion. There are no intracardiac masses. Comparison with the previous study is difficult because of the difference in the technical quality. Cardiac cath in 2021 Conclusions 1. Severe mid and distal RCA stenosis. Status post successful revascularization of 2. mid RCA with TING x1 and distal RCA with balloon angioplasty.. 3. Mid Right Coronary Artery to Distal Right Coronary Artery was treated with a Balloon, and Drug Eluting Stent. 4. Distal Right Coronary Artery was treated with a Balloon. -Type I versus type II Plan - No chest pain complaints - Aspirin, Plavix - Therapeutic Lovenox FLAVIO secondary to sepsis Full code Lovenox DVT prophylaxis PDMP PDMP Reviewed: Not Reviewed Attestations 2 Medical Necessity Statement*: Patient requires hospitalization sepsis, pneumonia, NSTEMI Diagnoses Sepsis A41.9 UTI (urinary tract infection) N39.0 Pneumonia J18.9
--- NOTE | 2025-07-07 16:38 | USCV_ITS ---
Jose Perkins Age: 80 Gender: M : 1945 Exam Date: 07/07/2025 07:55 Ordering Phys: Johnson Mosher MD Technologist: [place] [facility] [place]: ? veg BP: / HR: Rhythm: Sinus Technical Quality: Good MEASUREMENTS (Male / Female) Normal Values Medications Patient given IV sedation by anesthesia service, for details please refer to the anesthesia report. Complications None. Proc. Components The patient was brought to the JOSE examination room in a fasting state after obtaining an informed consent. The JOSE probe was passed into the posterior pharynx , mid-esophagus, distal esophagus, and gastric fundus. JOSE was performed at multiple levels. The patient tolerated the procedure well and there were no complications. FINDINGS Left Ventricle Normal left ventricular size, systolic function and wall thickness, with no regional wall motion abnormalities. Left ventricular ejection fraction is estimated at 55 %. Right Ventricle Normal right ventricular size and systolic function. Right Atrium Normal right atrial size. Left Atrium Normal left atrial size. IA Septum Normal appearance of the interatrial septum. LA Appendage Normal left atrial appendage. No thrombus visualized in the left atrial appendage. Mitral Valve Moderately thickened mitral valve. No mitral valve stenosis. Moderate mitral valve regurgitation. Aortic Valve Moderate aortic valve calcification. No aortic valve stenosis. Trace aortic valve regurgitation. Tricuspid Valve Trace tricuspid valve regurgitation. Pulmonic Valve Normal pulmonic valve structure. No pulmonic valve stenosis or regurgitation. Pericardium No pericardial effusion. Aorta Normal diameter of the aortic root and ascending thoracic aorta. CONCLUSIONS Normal left ventricular size, systolic function and wall thickness, with no regional wall motion abnormalities. Left ventricular ejection fraction is estimated at 55 %. Moderately thickened mitral valve. No mitral valve stenosis. Moderate mitral valve regurgitation. There is no pericardial effusion. Love Lynn MD (Electronically Signed) Final Date: 09 July 2025 22:15 S
--- NOTE | 2025-07-07 18:08 | PC.SLP ---
Patient currently NPO due to altered mental status. Asleep in room. Nursing stated to hold speech therapy today.
[2025-07-08] VITALS (27 sets, daily range): BP systolic 101–131; BP diastolic 61–86; PULSE 103–119; RESP 18–37; TEMP 36.1–37.7; O2SAT 84–100
--- NOTE | 2025-07-08 00:38 | XRR_ITS ---
PROCEDURE INFORMATION: Exam: XR Chest Exam date and time: 07/08/2025 1:01 AM Age: 80 years old Clinical indication: Shortness of breath; Prior surgery; Surgery date: 6+ months; Surgery type: Gb; Worsening SOB; Additional info: Increased production TECHNIQUE: Imaging protocol: Radiologic exam of the chest. Views: 1 view. COMPARISON: CT angio chest PE protcl [id number] 07/06/2025 5:41 PM FINDINGS: Lungs: Diffuse pulmonary opacities, [id number], suggesting pneumonia or pulmonary edema. Pleural spaces: No pleural effusion. No pneumothorax. Heart/Mediastinum: Cardiomediastinal silhouette is stable. Bones/joints: No acute fracture. XR/XR chest 1V portable [id number] IMPRESSION: Diffuse pulmonary opacities, [id number], suggesting pneumonia or pulmonary edema.
[2025-07-08 01:05] LABS: Hematocrit 39.6 % (37-53); Hemoglobin 13.20 g/dL (11.27-16.99); Mean Corpuscular HGB Conc 33.3 g/dL (30-55); Mean Corpuscular Hemoglobin 25.6 pg (27-33); Mean Corpuscular Volume 76.9 fl (82-101); Nucleated Red Blood Cells % 0 %; Platelet Count 325 10^3/cmm (157-399); Red Blood Count 5.15 10^6/uL (3.85-5.65); White Blood Count 23.73 10^3/uL (3.29-11.43)
[2025-07-08 01:12] LABS: ABG PCO2 33.1 mmHg (35-45); ABG PH Result 7.54 (7.35-7.45); Alveolar-Arterial Oxygen Gradi 4.7 mmHg (5-10); Arterial Blood Gas Hematocrit 50.2 % (42-52); Blood Gas Operator Identificat JDB; Blood Gas Sample Site Brachial, right; Blood Gas Sample Type Arterial; Carboxyhemoglobin 1.4 %THgb (0.4-20.1); Glucose Level-ABG 197.0 mg/dL (70-115); HCO3 ABG 28.4 mmol/L (22-26); Ionized Calcium Level - ABG 1.3 mmol/L (1.1-1.4); Methemoglobin 0.9 % (0.4-1.5); Oxygen Saturation ABG 95.2; PO2 ABG 72.3 mmHg (80.0-100.0); Potassium Level - ABG 2.8 mmol/L (3.5-5.0); Sodium Level - ABG 152.0 mmol/L (131-143)
[2025-07-08 01:13] LABS: Blood Gas LPM 3.0 %
[2025-07-08 01:20] LABS: Anion Gap 24.7 (5-19); Blood Urea Nitrogen 29 mg/dL (8-23); Calcium 11.1 mg/dL (8.5-10.5); Carbon Dioxide 25 mmol/L (22-29); Chloride 101 mmol/L (98-107); Creatinine Clr Calc Pharmacy 66.0702; Glucose 168 mg/dL (65-115); Magnesium 1.7 mg/dL (1.7-2.3); Osmolality Calculated 316 mOsm/kg (285-295); Sodium 148 mmol/L (136-145)
[2025-07-08] MEDS: morphine 4 mg/mL SDV 1 mL 2 MG IVP (01:29)
[2025-07-08 01:30] LABS: Potassium 2.7 mmol/L (3.5-5.1)
[2025-07-08] MEDS: water for injection-sterile 10 ML 999 ML (02:11)
[2025-07-08] MEDS: lidocaine 1% 5 ML in potassium chloride premix 100 ML 26.25 ML IV (03:09)
--- NOTE | 2025-07-08 04:33 | PC.NURSE ---
Patient receiving k rider through right peripheral, IV infiltrated and there is edema around site. 1 mL aspirated from IV. Iv stopped and removed. Pharmacy consulted for hyaluronidase, physician and house sup notified.
--- NOTE | 2025-07-08 05:22 | PC.NURSE ---
Pharmacy came in and mixed injections for hyaluronidase to inject into site.
[2025-07-08] MEDS: hyaluronidase, human recomb. 150 unit/mL SDV INTRADERMA (05:36)
[2025-07-08] MEDS: water for injection-sterile 20 ML 100 ML ×2 (08:04→15:44)
[2025-07-08 12:41] LABS: Anion Gap 20.9 (5-19); Blood Urea Nitrogen 37 mg/dL (8-23); Calcium 10.7 mg/dL (8.5-10.5); Carbon Dioxide 26 mmol/L (22-29); Chloride 106 mmol/L (98-107); Creatinine Clr Calc Pharmacy 59.8689; Glucose 149 mg/dL (65-115); Osmolality Calculated 321 mOsm/kg (285-295); Sodium 150 mmol/L (136-145)
[2025-07-08 12:45] LABS: Potassium 2.9 mmol/L (3.5-5.1)
--- NOTE | 2025-07-08 12:46 | PC.NURSE ---
1230 LAB vanc trough is 17.2, called pharmacy, they say we are to keep between 15-20 so go ahead and hang this dose. So dose given. 1246 Lab called potassium level of 2.9 I text this result to dr ackerman.
--- NOTE | 2025-07-08 12:53 | CTR_ITS ---
PROCEDURE INFORMATION: Exam: CT Head Without Contrast Exam date and time: 07/08/2025 5:06 PM Age: 80 years old Clinical indication: Altered mental status/memory loss TECHNIQUE: Imaging protocol: Computed tomography of the head without contrast. Radiation optimization: All CT scans at this facility use at least one of these dose optimization techniques: automated exposure control; mA and/or kV adjustment per patient size (includes targeted exams where dose is matched to clinical indication); or iterative reconstruction. COMPARISON: CT head wo con* [id number] 07/04/2025 10:38 AM RADIATION DOSE METRICS: Total DLP (mGy-cm): 890.88 FINDINGS: Limitations: Motion artifact, particularly near the calvarial vertex limits evaluation. Brain: Moderate global parenchymal volume loss.Patchy areas of periventricular and subcortical white matter hypoattenuation, likely the sequela of microvascular ischemic changes. No loss of ledezma-white differentiation to suggest an acute infarct. No acute intracranial hemorrhage. No mass effect or midline shift. Cerebral ventricles: No ventriculomegaly. Paranasal sinuses: Visualized sinuses are unremarkable. No fluid levels. Mastoid air cells: Visualized mastoid air cells are well aerated. Bones: Unremarkable. No acute fracture. Soft tissues: Unremarkable. Vasculature: Vertebral artery calcifications. CT/CT head wo con* [id number] IMPRESSION: 1. No acute intracranial hemorrhage. 2. Chronic findings as above.
[2025-07-08] MEDS: potassium phosphate (mEq K) 40 MEQ in sodium chloride 0.9% (100 ml) 100 ML 27.25 MEQ IV (13:21)
[2025-07-08] MEDS: pantoprazole 40 mg SDV IVP (14:14)
--- NOTE | 2025-07-08 16:19 | P.PN_ITS ---
Subjective 2 Subjective: - Patient was seen this morning -He is alert to person, not to place, no t to time - Pupils equal round react to light, bourgeois s not track He keeps trying to get up out of bed- -difficult to do neurologic testing, he follows commands at times such as squeezing my fingers, but difficult for him to follow commands given his global encephalopathy - Currently on 3 L, normotensive, - Episodes of confusion and agitation re ported throughout the night by nursing staff Vitals/I&O/Wt Last Vital Signs Temp 97.2 F L 07/08/25 12:00 Pulse 112 H 07/08/25 14:00 Resp 23 H 07/08/25 12:00 BP 104/80 07/08/25 12:00 Pulse Ox 86 L 07/08/25 08:00 O2 Del Method Nasal Cannula 07/08/25 07:50 O2 Flow Rate 3 07/08/25 07:50 07/08/25 07/08/25 07/08/25 06:59 14:59 22:59 Intake Total 250 / 810 / Balance 250 / 610 / Weight last 48 hrs Weight 76.3 kg Weight 75.041 kg Physical Exam 2 Const: COMMON NORMALS: no acute distress EXAM LIMITATIONS: altered mental status ORIENTATION/CONSCIOUSNESS: Yes awake, Yes oriented to person and Yes confused; not oriented to place and not oriented to time Eye: COMMON NORMALS: Equal, round and reactive pupils present PUPIL: Yes Equal, round and reactive pupils present Resp: COMMON NORMALS: normal respiratory effort, No retractions and No use of accessory muscles AUSCULTATION: crackles and wheezes Cardio: COMMON NORMALS: regular rate, regular rhythm, S1 normal heart sound present and S2 normal heart sound present RATE: regular rate RHYTHM: r egular rhythm HEART SOUNDS: S1 normal heart sound present and S2 normal heart sound present GI: COMMON NORMALS: Normal to inspection, nondistended, normoactive bowel sounds present and non-tender Extremity: COMMON NORMALS: no pedal edema Neuro: SENSORIUM/ORIENTATION: Yes oriented to person, No oriented to place and No oriented to time OTHER: No facial droop, no slurring of his words, he can track at times, no clonus, Babinski downward going bilaterally, localizes pain, withdraws from pain, can follow some commands, at times remains globally encephalopathic Urinary Catheter Management: Jack: Cath Placed During This Visit: yes Reason for Continuing Indwelling Catheter: Accurate Measurement of Urinary Output in Critically Ill Patients Urinary Catheter Date of Insertion: 07/04/25 Urinary Catheter Time of Insertion: 12:32 Data 07/08/25 00:55 07/08/25 11:27 Micro: Microbiology 07/07/25 14:28 Blood Culture - Preliminary Blood NEGATIVE TO DATE 07/07/25 14:25 Blood Culture - Preliminary Blood NEGATIVE TO DATE 07/04/25 10:11 Blood Culture - Preliminary Blood Staphylococcus hominis Streptococcus pneumoniae A&P Assessment and plan 1. Sepsis: 2. UTI (urinary tract infection): 3. Pneumonia: Plan: Sepsis - Secondary to urinary tract infection, - Pneumonia, with streptococcal pneumonia - Staphylococcus bacteremia Staphylococcus bacteremia -1 out of 4 blood cultures positive for Staphylococcus epidermidis -1 out of 4 blood cultures positive for staphylococcal hominis -1 out of 4 blood cultures positive for Staphylococcus species - Cardiac echo shows thickened aortic valve -No artificial hardware - Plan -CT angiogram of the chest CT/CT angio chest PE protcl [id number] IMPRESSION: 1. Multifocal pneumonia. 2. Small bilateral pleural effusions. 3. 1.1 cm nodule in the posterior right lower lobe, unchanged dating back to 02/02/2022, most likely benign given stability. 4. Partially imaged infrarenal abdominal aortic aneurysm. - Continue vancomycin -Continue IV meropenem -No history of artificial hardware - Transesophageal echocardiogram, no evidence of valvular vegetations Pneumonia - Right middle lobe pneumonia - Concerns for aspiration pneumonia - 1 out of 4 blood culture positive for strep pneumoniae -CT angiogram of the chest shows multifocal pneumonia Plan - Speech therapy eval, dysphagia level 4 diet - Aspiration precautions - Sputum culture - Blood culture - Vancomycin - Meropenem Urinary tract infection, urine cultures growing E. coli - Will de-escalate antibiotics based on clinical progress - Antibiotics as above Bladder outlet obstruction, with markedly enlarged prostate - Jack catheter placed in the ER - Will resume on discharge, will have to follow-up with nephrology as outpatient Altered mental status -Globally encephalopathic this morning - Likely secondary to UTI, pneumonia, sepsis, bladder outlet obstruction, Staphylococcus bacteremia - Component of anesthetic effect? - Potential withdrawal from gabapentin and Lyrica that he is on? - What I can discern from his primary care notes that his gabapentin has been slowly been weaning down, with him starting on Lyrica - Repeat CT head NSTEMI Cardiac echo CONCLUSIONS Normal left ventricular size and systolic function, EF 59% .mild left ventricular hypertrophy. Abnormal septal motion consistent with conduction abnormality. Mild hypokinesis of the basal inferior wall segment.Grade I/IV diastolic dysfunction (abnormal relaxation filling pattern), normal to mildly elevated filling pressures. Thickened aortic valve. No significant valvular lesions. There is no pericardial effusion. There are no intracardiac masses. Comparison with the previous study is difficult because of the difference in the technical quality. Cardiac cath in 2021 Conclusions 1. Severe mid and distal RCA stenosis. Status post successful revascularization of 2. mid RCA with TING x1 and distal RCA with balloon angioplasty.. 3. Mid Right Coronary Artery to Distal Right Coronary Artery was treated with a Balloon, and Drug Eluting Stent. 4. Distal Right Coronary Artery was treated with a Balloon. -Type I versus type II Plan - No chest pain complaints - Aspirin, Plavix - Therapeutic Lovenox FLAVIO secondary to sepsis Full code Lovenox DVT prophylaxis PDMP PDMP Reviewed: Not Reviewed Attestations 2 Medical Necessity Statement*: Patient requires hospitalization for acute encephalopathy, streptococcal bacteremia Diagnoses Sepsis A41.9 UTI (urinary tract infection) N39.0 Pneumonia J18.9
[2025-07-08 16:24] LABS: Procalcitonin 0.86 ng/mL (0-0.5)
[2025-07-08 16:37] LABS: Alanine Aminotransferase 20 U/L (0-41); Albumin Level 3.0 g/dL (3.5-5.2); Alkaline Phosphatase 109 U/L (40-130); Aspartate Amino Transferase 33 U/L (0-40); Globulin 4.5 g/dL (1.3-4.6); Total Protein 7.5 g/dL (6.6-8.7)
[2025-07-08 16:44] LABS: NT Pro B Type Natriuretic Pept 30812 pg/mL (0-450)
--- NOTE | 2025-07-08 17:20 | PC.NURSE ---
[address] scan via bed, patient did not want to lie still, fastener technologist helped him keep his head still. Back to room via bed with monitor and O2. Noe well.
--- NOTE | 2025-07-08 22:23 | XRR_ITS ---
PROCEDURE INFORMATION: Exam: XR Chest Exam date and time: 07/08/2025 10:29 PM Age: 80 years old Clinical indication: Shortness of breath TECHNIQUE: Imaging protocol: Radiologic exam of the chest. Views: 1 view. COMPARISON: CR (CHEST, ) 07/08/2025 1:01 AM FINDINGS: Lungs: Hazy opacities in the mid/lower lungs, [id number]. Findings are increased compared to prior. Pleural spaces: Unremarkable. No pleural effusion. No pneumothorax. Heart/Mediastinum: Unremarkable. No cardiomegaly. Bones/joints: Unremarkable. XR/XR chest 1V portable [id number] IMPRESSION: Increased hazy opacities in the mid/lower lungs. Differential includes infection, pulmonary edema or less likely aspiration.
[2025-07-08 22:37] LABS: ABG PCO2 38.6 mmHg (35-45); ABG PH Result 7.49 (7.35-7.45); Alveolar-Arterial Oxygen Gradi 8.0 mmHg (5-10); Arterial Blood Gas Hematocrit 39.4 % (42-52); Blood Gas LPM 6.0 %; Blood Gas Operator Identificat SAM; Blood Gas Sample Site Brachial, right; Blood Gas Sample Type Arterial; Carboxyhemoglobin 1.6 %THgb (0.4-20.1); Glucose Level-ABG 155.0 mg/dL (70-115); HCO3 ABG 29.5 mmol/L (22-26); Ionized Calcium Level - ABG 1.4 mmol/L (1.1-1.4); Methemoglobin 0.3 % (0.4-1.5); Oxygen Saturation ABG 85.9; PO2 ABG 41.0 mmHg (80.0-100.0); Potassium Level - ABG 3.3 mmol/L (3.5-5.0); Sodium Level - ABG 161.0 mmol/L (131-143)
[2025-07-08 23:21] LABS: Anion Gap 20.4 (5-19); Blood Urea Nitrogen 45 mg/dL (8-23); Calcium 10.4 mg/dL (8.5-10.5); Carbon Dioxide 26 mmol/L (22-29); Chloride 114 mmol/L (98-107); Creatinine Clr Calc Pharmacy 54.4263; Glucose 148 mg/dL (65-115); Osmolality Calculated 338 mOsm/kg (285-295); Potassium 3.4 mmol/L (3.5-5.1); Sodium 157 mmol/L (136-145)
--- NOTE | 2025-07-08 23:33 | XRR_ITS ---
PROCEDURE INFORMATION: Exam: XR Chest Exam date and time: 07/08/2025 11:34 PM Age: 80 years old Clinical indication: Device placement: Et tube, central line, og tube TECHNIQUE: Imaging protocol: Radiologic exam of the chest. Views: 1 view. COMPARISON: CR (CHEST, ) 07/08/2025 10:29 PM FINDINGS: Tubes, catheters and devices: Endotracheal tube tip terminates 5.5 cm above the fan right IJ approach central venous catheter with the tip terminating in the upper SVC. Enteric tube with the tip projecting over the stomach and the side hole projecting near the GE junction. Lungs: Improved aeration of the lungs with minimal residual opacities. Pleural spaces: No pneumothorax. No pleural effusion. Heart/Mediastinum: Unremarkable. No cardiomegaly. Bones/joints: Unremarkable. XR/XR chest 1V portable [id number] IMPRESSION: 1. Appropriately positioned endotracheal tube. 2. Right IJ approach central venous catheter with the tip terminating in the upper SVC-- satisfactory position. 3. Enteric tube tip terminates over the stomach with the side hole near the GE junction. Consider advancement by a few centimeters for optimal positioning.
[2025-07-09] VITALS (55 sets, daily range): BP systolic 57–111; BP diastolic 37–78; PULSE 0–115; RESP 14–28; TEMP 37.1; O2SAT 82–100
[2025-07-09] MEDS: fentaNYL 1,000 MCG/100 ML BAG 2.5 MCG IV (00:16)
[2025-07-09] MEDS: midazolam hcl 100 MG/100 ML BAG IV (00:16)
[2025-07-09] MEDS: succinylcholine 20 mg/mL SDV 10mL 200 MG (00:29)
[2025-07-09] MEDS: etomidate 20 ML 999 MG (00:29)
[2025-07-09] MEDS: norepinephrine 4 MG/250 ML BAG 7.5 MG IV (00:30)
[2025-07-09] MEDS: sodium chloride 0.9% (100 ml) 100 ML 999 ML (00:31)
--- NOTE | 2025-07-09 01:24 | PC.NURSE ---
Addendum entered by Maeve Bran RN 07/09/25 01:59: Witnessed waster with AURELIO Bardales Original Note: 5 mL of Succinylcholine wasted with Maeve CAREY
--- NOTE | 2025-07-09 01:43 | PC.NURSE ---
Patient appeared to have more difficulty breathing and started to require higher oxygen requirements, physician notified and came to assess at bedside. ABG, chest xray and stat labs ordered. Patient PO2 41. Determined patient needed intubation Patient not oriented, sister Lexi Schulz notified for consent and confirmed by Dr. Joe. Dr. Bell came to bedside to intubate @ 2300. 20 of Etomidate and 100 of succinylcholine administered at 2307, Dr. Bell intubated patient at 2309. 25mcg of fentanyl started and 3 mg bolus of versed with maintenance of 1.
--- NOTE | 2025-07-09 03:12 | PM.CCN ---
Critical Care Event Note The high probability of a clinically significant, sudden or life threatening deterioration of the patient's [] system(s) required my full and direct attention, intervention and personal management. The critical care time is as shown. This time is in addition to time spent performing any reported procedures but includes the following: [x] Data and vital sign review and interpretation [x] Patient assessment, examination and intervention [x] Documentation [x] Medication orders and management Critical Care Time Code activated: No Critical Care Time (min): 25 Additional information about critical care time: Called to bedside regarding emergent need for intubation in the ICU given low pO2 on blood gas testing. On assessment, patient has significant mental status changes, struggling to breathe despite significant oxygenation via OxyMask. Intubation proceeded without complication. While there, I was asked to place central line due to difficult IV access, and need for pressors, etc. Central line was placed in the right IJ without complication using ultrasound guidance. Procedures Central Line Placement^ Right IJ: Time out performed: Yes Patient placed on monitor/pulse ox: Yes MD prep: mask, gown and gloves Central line prep: Chlorhexidine scrub Local anesthesia used: lidocaine 1% Amount of anesthesia used (ml): 3 Ultrasound used for placement: Yes Central line lumen inserted: triple Post procedure: sutured in place, good blood return, all ports aspirated, flushed, capped and sterile dressing applied Post procedure x-ray: tip of catheter in good position Patient tolerated procedure: well and no complications Complications: none Intubation Time out performed: No Sedative: etomidate Mg given: 20 Paralytic: succinylcholine Mg given: 100 Laryngoscope: Sudha Assist device used: fiber optic device ET tube size: 7.5 ET tube uncuffed: No Tube secured depth (cm): 25 Tube secured location: lips Tube placement confirmation: visualized tube passing through cords, equal breath sounds bilaterally, no breath sounds over epigastrium and confirmation by capnometry Patient tolerated procedure: well and no complications Intubation complications: none Coding Level of Care Code Acute Code for Chg Fwd
[2025-07-09 05:04] LABS: Hematocrit 33.6 % (37-53); Hemoglobin 10.60 g/dL (11.27-16.99); Mean Corpuscular HGB Conc 31.5 g/dL (30-55); Mean Corpuscular Hemoglobin 25.5 pg (27-33); Mean Corpuscular Volume 80.8 fl (82-101); Nucleated Red Blood Cells % 0.1 %; Platelet Count 343 10^3/cmm (157-399); Red Blood Count 4.16 10^6/uL (3.85-5.65); White Blood Count 21.34 10^3/uL (3.29-11.43)
[2025-07-09 05:33] LABS: Lactate (Lactic Acid level) 2.0 mmol/L (0.5-2.2)
[2025-07-09 05:34] LABS: Alanine Aminotransferase 18 U/L (0-41); Albumin Level 2.9 g/dL (3.5-5.2); Alkaline Phosphatase 107 U/L (40-130); Anion Gap 17.7 (5-19); Aspartate Amino Transferase 28 U/L (0-40); Blood Urea Nitrogen 51 mg/dL (8-23); Calcium 9.6 mg/dL (8.5-10.5); Carbon Dioxide 27 mmol/L (22-29); Chloride 118 mmol/L (98-107); Creatinine Clr Calc Pharmacy 42.7635; Globulin 3.5 g/dL (1.3-4.6); Glucose 152 mg/dL (65-115); Magnesium 2.0 mg/dL (1.7-2.3); Osmolality Calculated 345 mOsm/kg (285-295); Potassium 3.7 mmol/L (3.5-5.1); Sodium 159 mmol/L (136-145); Total Protein 6.4 g/dL (6.6-8.7)
[2025-07-09 05:41] LABS: NT Pro B Type Natriuretic Pept 18736 pg/mL (0-450); Procalcitonin 0.76 ng/mL (0-0.5)
[2025-07-09 05:52] LABS: Anion Gap 19.6 (5-19); Blood Urea Nitrogen 46 mg/dL (8-23); Calcium 9.8 mg/dL (8.5-10.5); Carbon Dioxide 26 mmol/L (22-29); Chloride 117 mmol/L (98-107); Creatinine Clr Calc Pharmacy 46.0530; Glucose 153 mg/dL (65-115); Osmolality Calculated 343 mOsm/kg (285-295); Potassium 3.6 mmol/L (3.5-5.1); Sodium 159 mmol/L (136-145)
[2025-07-09 06:06] LABS: Slide Review Slide Review Perform
[2025-07-09 06:44] LABS: ABG PCO2 38.8 mmHg (35-45); ABG PH Result 7.46 (7.35-7.45); Alveolar-Arterial Oxygen Gradi 24.3 mmHg (5-10); Arterial Blood Gas Hematocrit 39.6 % (42-52); Blood Gas Operator Identificat SAM; Blood Gas Sample Site Brachial, right; Blood Gas Sample Type Arterial; Blood Gas Tidal Volume 0.45; Carboxyhemoglobin 0.8 %THgb (0.4-20.1); Glucose Level-ABG 180.0 mg/dL (70-115); HCO3 ABG 27.7 mmol/L (22-26); Ionized Calcium Level - ABG 1.3 mmol/L (1.1-1.4); Methemoglobin 0.3 % (0.4-1.5); Oxygen Saturation ABG > 99.1; PEEP 8.0 cmH20; PO2 ABG 189.0 mmHg (80.0-100.0); PO2 FiO2 Ratio Arterial Blood 315; Potassium Level - ABG 3.6 mmol/L (3.5-5.0); Sodium Level - ABG 161.0 mmol/L (131-143)
[2025-07-09 09:07] LABS: Sodium 156 mmol/L (136-145)
[2025-07-09] MEDS: methylPREDNISolone sod succ 125 mg/2 mL INJ IVP (09:20)
[2025-07-09 11:47] LABS: ABG PH Result 7.27 (7.35-7.45); Alveolar-Arterial Oxygen Gradi 68.1 mmHg (5-10); Arterial Blood Gas Hematocrit 35.2 % (42-52); Blood Gas Operator Identificat AMH; Blood Gas Sample Site Brachial, right; Blood Gas Sample Type Arterial; Carboxyhemoglobin 1.0 %THgb (0.4-20.1); Glucose Level-ABG 221.0 mg/dL (70-115); HCO3 ABG 45.3 mmol/L (22-26); Ionized Calcium Level - ABG 1.6 mmol/L (1.1-1.4); Methemoglobin 1.2 % (0.4-1.5); Oxygen Saturation ABG 91.5; PO2 ABG 79.0 mmHg (80.0-100.0); PO2 FiO2 Ratio Arterial Blood 79; Potassium Level - ABG 6.6 mmol/L (3.5-5.0); Sodium Level - ABG 175.0 mmol/L (131-143)
[2025-07-09 11:49] LABS: ABG PCO2 98.0 mmHg (35-45)
--- NOTE | 2025-07-09 12:02 | ECG_ITS ---
nScaled Test Date: 2025-07-09 Pat Name: Jose Perkins Department: Room: [facility]03 Gender: Male Acquisition Analyst: : 1945 Requested By: Johnson Mosher Order Number: [id number] Reading MD: MYKE LAU Measurements Intervals [place] Rate: 93 P: 0 VT: 0 QRS: 86 QRSD: 123 T: 0 QT: 335 QTc: 417 Interpretive Statements Junctional RHYTHM POSSIBLE RIGHT VENTRICULAR CONDUCTION DELAY [RSR (QR) IN V1/V2] ST DEVIATION AND MODERATE T-WAVE ABNORMALITY, CONSIDER ANTERIOR ISCHEMIA [-0.1+ mV T-WAVE IN V3/V4] INTERPRETATION BASED ON A DEFAULT AGE OF 40 YEARS Compared to ECG 07/05/2025 21:40:48 T-wave abnormality now present Possible ischemia now present Sinus tachycardia no longer present Ventricular premature complex(es) no longer present Myocardial infarct finding no longer present Electronically Signed On 07-09-2025 22:28:47 CDT by MYKE LAU [id number]
[2025-07-09 12:05] LABS: ABG PCO2 54.2 mmHg (35-45); ABG PH Result 7.26 (7.35-7.45); Alveolar-Arterial Oxygen Gradi 51.1 mmHg (5-10); Arterial Blood Gas Hematocrit 34.9 % (42-52); Blood Gas Allen Test Pos; Blood Gas Operator Identificat CAK; Blood Gas Sample Site Brachial, left; Blood Gas Sample Type Arterial; Blood Gas Tidal Volume 0.45; Carboxyhemoglobin 0.8 %THgb (0.4-20.1); Glucose Level-ABG 234.0 mg/dL (70-115); HCO3 ABG 24.4 mmol/L (22-26); Ionized Calcium Level - ABG 1.7 mmol/L (1.1-1.4); Methemoglobin 1.3 % (0.4-1.5); Oxygen Saturation ABG > 99.1; PEEP 8.0 cmH20; PO2 ABG 250.0 mmHg (80.0-100.0); PO2 FiO2 Ratio Arterial Blood 250; Potassium Level - ABG 4.1 mmol/L (3.5-5.0); Sodium Level - ABG 162.0 mmol/L (131-143)
[2025-07-09 12:08] LABS: Sodium 162 mmol/L (136-145)
[2025-07-09] MEDS: vasopressin 40 UNIT/100 ML PREMIX IV (12:14)
--- NOTE | 2025-07-09 12:17 | ECG_ITS ---
[employer] Energy[employer] Test Date: 2025-07-04 Pat Name: Jose Perkins Department: Room: [facility]03 Gender: Male Business Solutions Analyst: : 1945 Requested By: Johnson Mosher Order Number: [id number] Asael MD: Nato Blount M.D. Measurements Intervals [place] Rate: 91 P: 65 NV: 168 QRS: 35 QRSD: 104 T: 73 QT: 380 QTc: 469 Interpretive Statements SINUS RHYTHM WITH OCCASIONAL SUPRAVENTRICULAR PREMATURE COMPLEXES NONSPECIFIC T-WAVE ABNORMALITY Compared to ECG 07/04/2025 10:10:09 NO SIGNIFICANT CHANGE Electronically Signed On 07-13-2025 08:18:53 CDT by Nato Blount M.D. [email or web address]
[2025-07-09] MEDS: EPINEPHrine 2.5 MG in sodium chloride 0.9% 250 ML 6.06 MG IV (12:22)
[2025-07-09] MEDS: calcium chloride 10% Syr 10 mL 1 GM IVP (12:23)
--- NOTE | 2025-07-09 12:25 | PC.NURSE ---
CODE BLUE; Code Blue called overhead to ICU bed 3. 1128 CPR 1129 Epi IVP 1130 Pulse Check/V-fib/Shock/CPR 1131 Amp Bicarb IVP 1132 Pulse Check/V-fib/Shock/CPR 1132 Epi IVP, Amp Calcium Chloride IVP 1133 Amio 300mg IVP 1134 Pulse Check/V-fib/shock/CPR 1135 150mg Amio, Epi IVP 1136 Amp Bicarb IVP 1136 Pulse Check/ROSC After code orders; EKG completed. BG 207. CBC, CMP, BMP, Lactic labs pulled and sent to lab. ABG obtained. New v/o for second IVP of Calcium Chloride by Dr Milligan. Administered @1140. Levo gtt running at 10. (See MAR for primary RN med titrations). Epi gtt ordered and initiated @0265
--- NOTE | 2025-07-09 12:30 | PC.NURSE ---
1115: upon entering room, noted pt bradycardic at 48. His heart rate kept lowering. 1118: Asked US to call Dr Mosher and called for help and crash cart. Pt mottled up to his lower abdomen, unable to get BP, Blood sugar ok. No pulse. Code called. See Code note done by load out supervisor Vicky.
[2025-07-09 12:36] LABS: Troponin(5th) Baseline 555 ng/L (0-15)
--- NOTE | 2025-07-09 12:42 | P.PN_ITS ---
Subjective 2 Subjective: - Overnight events noted - Patient was intubated for acute hypoxi c respiratory failure - Currently seen, 40% FiO2, tidal volume 450, PEEP of 8 - Afebrile overnight, is on 2 Levophed - He is on propofol, fentanyl for sedati on - No family members at bedside - Currently receiving D5 water for hyper natremia - Output 200 - Patient has acute hypoxic respiratory failure secondary to bilateral pneumonia, developing acute respiratory distress syndrome, with underlying paraseptal and centrilobular emphysema, currently in septic shock requiring 2 Levophed, is on vancomycin, meropenem - Blood cultures growing staphylococcal hominis, Staphylococcus epidermidis, strep pneumonia, with E. coli UTI repeat blood cultures so far negative - Patient is critically ill, prognosis g uarded - Consulted pulmonary - At roughly 11:29 AM, I was urgently ca lled by nursing staff that patient had developed bradycardia, heart rates in 30s, will order given for 0.5 atropine is to start patient on dopamine -As I was arriving to the ICU to examine patient, CODE BLUE was called overhead - Upon arrival nursing staff tell me he was in V-fib, CPR was initiated - Patient on 3 subsequent pulse checks h ad V-fib, was shocked 3 times, received 2 doses of epi, 2 doses of amiodarone, 2 doses of bicarbonate, received calcium gluconate - CPR was roughly initiated for about 10 minutes before ROSC, waiting on the code sheet to confirm - Nonetheless with ROSC, he was in tachy cardia, Levophed currently at 20, receiving fluid bolus, G shows ST depressions in anterior leads - CBC, CMP, ABG, troponin ordered - Initial ABG showed a potassium of 6.6, he is already received calcium chloride, orders placed for calcium gluconate through nursing staff with orders for D10, insulin, - However repeat ABG showed potassium of 4.1 - BMP pending, had orders for insulin, D 50 placed, -I had a detailed meeting with patient's sisters in the waiting room - Sisters tell me that Jose has had a g eneralized decline over the last month, is more wheelchair-bound, has been urinating on himself recently, family has been worried about a UTI - Discussed with family he has bladder o utlet obstruction secondary to enlarged prostate with a UTI - But currently he septic shock secondar y to bilateral pneumonia, with streptococcal bacteremia, developing acute respiratory distress syndrome given his hypoxia - He was on broad-spectrum antibiotic th erapy since admission - He also has staphylococcal epidermidis and staphylococcal hominis bacteremia source is unclear this could be contamination nonetheless for adequate source control I performed a transesophageal cardiogram that did not show any valvular vegetations - His echocardiogram showed EF of 59%, n o valvular vegetations, thus I do not believe he has bacterial endocarditis - Nonetheless he is on broad-spectrum an tibiotic therapy - Discussed his NSTEMI, his EF being 59% , and medical management for his NSTEMI - Discussed that for the last 48 hours Arpan valdez has had persistent encephalopathy, repeat head CT within normal limits -Discussed my concern for his present en cephalopathy likely multifactorial, but significant border related to sepsis, pneumonia, and respiratory failure - Overnight patient's respiratory status worsened, developed acute hypoxic respiratory failure was intubated - Discussed patient's cardiac arrest, V- fib, likely a consequence of acute hypoxic respiratory failure, multifocal pneumonia, septic shock, acute respiratory distress syndrome - Repeat potassium on ABG is 4.1, I thin k that initial potassium was 6.6 was likely related to his cardiac arrest and cell breakdown, awaiting BMP - Patient is hypernatremic serum sodium of 162, is on D5 water, nephrology consulted - Discussed goals of care with family - Family tells me that given his general ized decline, they want him to be DNR, they do not want to have aggressive interventions, they do not want dialysis, if the likelihood of meaningful recovery is unlikely they want life-sustaining measures to be stopped - They do want to await other found memb ers to come, so they can pray over him, and play musical instrument over him, as that is what he did in [place] - Just with cardiac arrest episode we wo rry about multiorgan failure, anoxic brain injury, multiorgan failure, acute renal failure, shock liver, will repeat cardiac echo, will consult cardiology, consult nephrology, consult cardiology based on clinical progress - Patient was reexamined with family num bers at bedside, he is now on 3 pressors, vasopressin maximized, epinephrine drip maximized, Levophed maximized, Levophed at 30, fluid bolus, 80% FiO2 maps 60 -I allowed patient's family to spend jose antonio e with him -Nursing staff tell me that despite resu scitative measures, his mean arterial pressure remains in the 55-60 range is on 3 pressors, he is on 80% of FiO2, respiratory rate 22-30, he has no pupillary reflex, no gag reflex, does not withdraw from pain, - Family numbers at bedside, family memb ers want to withdraw life-sustaining measures, they want us to ease his pain is not suffering allow him to pass for comfortably - Discussed risk and benefits of all opt ions continue medical inventions giving him time versus comfort care and terminal extubation - After discussing with family the risks and benefits of all options, patient's family voiced understanding, all questions answered, shared decision making, family wants to proceed with comfort care - We are awaiting to other family number s to come, see Jose before full comfort care measures are started, family wants to have 2 other family members see him, and play a musical instrument over him before fully withdrawing care Vitals/I&O/Wt Last Vital Signs Temp 98.9 F 07/08/25 20:00 Pulse 99 07/09/25 11:55 Resp 28 H 07/09/25 11:55 BP 91/59 07/09/25 11:45 Pulse Ox 84 L 07/09/25 11:00 O2 Del Method Mechanical Ventilation 07/09/25 11:55 O2 Flow Rate 3 07/08/25 21:15 FiO2 100 07/09/25 11:55 07/08/25 07/09/25 07/09/25 22:59 06:59 14:59 Intake Total 379.0909 / 399.0909 1457.017 / 1856.1079 202.935 / 202.935 Output Total 200 / 200 175 / 375 Balance 179.0909 / 199.0909 1282.017 / 1481.1079 202.935 / 202.935 Weight last 48 hrs Weight 74 kg Weight 76.3 kg Physical Exam 2 Urinary Catheter Management: Jack: Cath Placed During This Visit: yes Reason for Continuing Indwelling Catheter: Accurate Measurement of Urinary Output in Critically Ill Patients Urinary Catheter Date of Insertion: 07/04/25 Urinary Catheter Time of Insertion: 12:32 Data 07/09/25 04:18 07/09/25 11:41 Micro: Microbiology 07/04/25 10:18 Blood Culture - Final Blood NO GROWTH AFTER 5 DAYS 07/04/25 10:11 Blood Culture - Final Blood Staphylococcus hominis Streptococcus pneumoniae 10/24/25 14:28 Blood Culture - Preliminary Blood NEGATIVE TO DATE 07/07/25 14:25 Blood Culture - Preliminary Blood NEGATIVE TO DATE A&P Assessment and plan 1. Sepsis: 2. UTI (urinary tract infection): 3. Pneumonia: Plan: Acute hypoxic respiratory failure - With acute respiratory distress syndrome - With multifocal pneumonia - Streptococcal pneumonia bacteremia - Septic shock Plan -Currently intubated, - Off sedation, testing neurologic functioning - 80% FiO2 - Broad-spectrum antibiotic therapy vancomycin, meropenem - Awaiting culture sensitivities - Septic shock on 3 pressors Septic shock on 3 pressors - MAP still 55-65 - Mottled up to the abdomen Cardiac arrest - V-fib arrest - Status post ROSC - With NSTEMI, - EKG does show ST depressions in anterior leads - Currently being medically managed Abdominal aortic aneurysm - I can feel the abdominal aortic aneurysm pulsating, abdomen is not rigid, - Will monitor FLAVIO, sepsis, cardiac arrest Hyperkalemia - Initial ABG showed potassium of 6.6 - During cardiac arrest episode received calcium chloride, received calcium gluconate, 2 A of bicarb - Initially there was plans on giving D10, insulin - However family wants to proceed with comfort care - Nonetheless repeat ABG shows potassium of 4.1, I think that that initially elevated potassium was associated with cell breakdown and cardiac arrest episode, BMP pending Hypernatremia - Was on D5 water overnight - Serum sodium up to 162 - Continue D5 water - Nephrology was consulted - As there is plans on comfort care will cancel consult, withdraw care Sepsis - Secondary to urinary tract infection, - Pneumonia, with streptococcal pneumonia - Staphylococcus bacteremia Staphylococcus bacteremia -1 out of 4 blood cultures positive for Staphylococcus epidermidis -1 out of 4 blood cultures positive for staphylococcal hominis -1 out of 4 blood cultures positive for Staphylococcus species - Cardiac echo shows thickened aortic valve -No artificial hardware - Plan -CT angiogram of the chest CT/CT angio chest PE protcl [id number] IMPRESSION: 1. Multifocal pneumonia. 2. Small bilateral pleural effusions. 3. 1.1 cm nodule in the posterior right lower lobe, unchanged dating back to 02/02/2022, most likely benign given stability. 4. Partially imaged infrarenal abdominal aortic aneurysm. - Continue vancomycin -Continue IV meropenem -No history of artificial hardware - Transesophageal echocardiogram, no evidence of valvular vegetations Multifocal pneumonia - Right middle lobe pneumonia - Concerns for aspiration pneumonia - 1 out of 4 blood culture positive for strep pneumoniae -CT angiogram of the chest shows multifocal pneumonia Plan - Speech therapy eval, dysphagia level 4 diet, n.p.o. - Aspiration precautions - Sputum culture - Blood culture - Vancomycin - Meropenem Urinary tract infection, urine cultures growing E. coli - Will de-escalate antibiotics based on clinical progress - Antibiotics as above Bladder outlet obstruction, with markedly enlarged prostate - Jack catheter placed in the ER - Will resume on discharge, will have to follow-up with nephrology as outpatient Altered mental status -Globally encephalopathic this morning - Likely secondary to UTI, pneumonia, sepsis, bladder outlet obstruction, Staphylococcus bacteremia - Component of anesthetic effect? - Potential withdrawal from gabapentin and Lyrica that he is on? - What I can discern from his primary care notes that his gabapentin has been slowly been weaning down, with him starting on Lyrica - Repeat CT head NSTEMI Cardiac echo CONCLUSIONS Normal left ventricular size and systolic function, EF 59% .mild left ventricular hypertrophy. Abnormal septal motion consistent with conduction abnormality. Mild hypokinesis of the basal inferior wall segment.Grade I/IV diastolic dysfunction (abnormal relaxation filling pattern), normal to mildly elevated filling pressures. Thickened aortic valve. No significant valvular lesions. There is no pericardial effusion. There are no intracardiac masses. Comparison with the previous study is difficult because of the difference in the technical quality. Cardiac cath in 2021 Conclusions 1. Severe mid and distal RCA stenosis. Status post successful revascularization of 2. mid RCA with TING x1 and distal RCA with balloon angioplasty.. 3. Mid Right Coronary Artery to Distal Right Coronary Artery was treated with a Balloon, and Drug Eluting Stent. 4. Distal Right Coronary Artery was treated with a Balloon. -Type I versus type II Plan - No chest pain complaints - Aspirin, Plavix - Lovenox FLAVIO secondary to sepsis Full code Lovenox DVT prophylaxis Family proceeding with comfort care PDMP PDMP Reviewed: Not Reviewed Attestations 2 Medical Necessity Statement*: Patient requires hospitalization for acute hypoxic respiratory failure, bilateral pneumonia, septic shock, acute respiratory distress syndrome, cardiac arrest, proceeding with comfort care Coding Level of Care Code Critical Care >/= 30 minutes Critical care time (in minutes): 65 The high probability of a clinically significant, sudden or life threatening deterioration, as referenced in this documentation, required my full and direct attention, intervention and personal management. The critical care time shown is in addition to time spent performing any reported separately billable procedures and includes the following: [x] Data and vital sign review and interpretation [x ] Patient assessment, examination and intervention [x] Medication orders and management [x] Patient/Family updates as able [x] Care Coordination and Documentation. Diagnoses Sepsis A41.9 UTI (urinary tract infection) N39.0 Pneumonia J18.9
--- NOTE | 2025-07-09 13:10 | PC.NURSE ---
Vasopressin increased to 0.08 unit/min, Levophed to 30mcg/min and Epi to 10mcg/min per verbal order from Dr Mosher.
--- NOTE | 2025-07-09 13:50 | PC.NURSE ---
Pt terminally extubated. OG removed. 2lpm/NC. No s/s of distress noted. Family remain at bedisde. All vasopressors and D5 stopped.
--- NOTE | 2025-07-09 14:05 | PC.NURSE ---
TOD. Steve at bedside. Dr Mosher notified.
--- NOTE | 2025-07-09 14:10 | PC.NURSE ---
Vasopressin, Levophed, Epinephrine and D% wasted. Fentanyl and Midolazam gtts wasted and witness by AURELIO Kearney. See MAR for amounts wasted.
--- NOTE | 2025-07-09 14:22 | PC.NURSE ---
Multiple attempts to get phone number for donation to science made to [facility] in [place]. Nurse not there today to speak to .
--- NOTE | 2025-07-09 14:35 | P.DS_ITS ---
Discharge Providers Date of Admission: 07/04/25 11:36 Date of Discharge: July 09, 2025 Attending Provider at Admission: Johnson Mosher MD Attending Provider at Discharge: Johnson Mosher MD Primary Care Provider: Joe Bustillos DO Diagnoses at Discharge Discharge Diagnosis 1. Sepsis: 2. Urinary tract infection without hematuria, site unspecified: 3. Pneumonia: Reason for Visit Reason for Visit: Weakness Physical Exam Urinary Catheter Management: Jack: Cath Placed During This Visit: yes Reason for Continuing Indwelling Catheter: Accurate Measurement of Urinary Output in Critically Ill Patients Urinary Catheter Date of Insertion: 07/04/25 Urinary Catheter Time of Insertion: 12:32 Discharge Data Studies Completed and Pending Completed Studies During Hospitalization Category Date Time Status CT abdomen renal stone [CT kidney stone 79116] Stat Cat Scan 07/04/25 10:[address] angio chest PE protcl [id number] Routine Cat Scan 07/06/25 08:[address] head wo con* [id number] Routine Cat Scan 07/08/25 12:[address] head wo con* [id number] Urgent Cat Scan 07/04/25 09:45 Completed XR chest 1V portable [id number] Stat Exams 07/08/25 00:38 Completed XR chest 1V portable [id number] Stat Exams 07/08/25 22:23 Completed XR chest 1V portable [id number] Stat Exams 07/08/25 23:33 Completed XR chest 1V portable [id number] Urgent Exams 07/04/25 09:45 Completed CV. echo complete* [id number] Routine Ultrasound 07/05/25 01:02 Completed US gall bladder [id number] Routine Ultrasound 07/05/25 02:40 Completed Pending at discharge Category Date Time Status Blood Culture Stat Lab 07/07/25 14:28 Results C Reactive Protein AM LABS Lab 07/10/25 04:00 Ordered C Reactive Protein AM LABS Lab 07/11/25 04:00 Ordered Complete Blood Count w/Auto AM LABS Lab 07/10/25 04:00 Ordered Complete Blood Count w/Auto AM LABS Lab 07/11/25 04:00 Ordered Comprehensive Metabolic Panel AM LABS Lab 07/10/25 04:00 Ordered Comprehensive Metabolic Panel AM LABS Lab 07/11/25 04:00 Ordered Creatine Phosphokinase AM LABS Lab 07/10/25 04:00 Ordered Creatine Phosphokinase AM LABS Lab 07/11/25 04:00 Ordered Lactate (Lactic Acid level) AM LABS Lab 07/10/25 04:00 Ordered Lactate (Lactic Acid level) AM LABS Lab 07/11/25 04:00 Ordered Magnesium AM LABS Lab 07/10/25 04:00 Ordered Magnesium AM LABS Lab 07/11/25 04:00 Ordered NT Pro B Type Natriuretic Pept QAM Lab 07/10/25 06:00 Ordered NT Pro B Type Natriuretic Pept QAM Lab 07/11/25 06:00 Ordered Phosphorus AM LABS Lab 07/10/25 04:00 Ordered Phosphorus AM LABS Lab 07/11/25 04:00 Ordered Procalcitonin AM LABS Lab 07/10/25 04:00 Ordered Procalcitonin AM LABS Lab 07/11/25 04:00 Ordered Sodium Q4H Lab 07/09/25 16:05 Ordered Sodium Q4H Lab 07/09/25 20:05 Ordered Sodium Q4H Lab 07/10/25 00:05 Ordered Sodium Q4H Lab 07/10/25 04:05 Ordered Sodium Q4H Lab 07/10/25 08:05 Ordered Sodium Q4H Lab 07/10/25 12:05 Ordered Sodium Q4H Lab 07/10/25 16:05 Ordered Sodium Q4H Lab 07/10/25 20:05 Ordered Sputum Culture and Gram Stain Stat Lab 07/09/25 07:50 Results Troponin(5th) 2 Hour. Timed Lab 07/09/25 13:41 Ordered Troponin(5th) 6 hour. Timed Lab 07/09/25 17:41 Ordered Vancomycin Random AM LABS Lab 07/10/25 04:00 Ordered CV. echo transesophageal [id number] Routine Ultrasound 07/07/25 16:38 Taken Radiology Impressions Abdomen/Pelvis CT 07/04/25 10:58 IMPRESSION: 1. Markedly enlarged prostate with bladder outlet obstruction. Recommend correlation PSA. 2. No hydronephrosis in either kidney. 3. Stable infrarenal abdominal aortic aneurysm described above. 4. No other significant changes. Gallbladder Ultrasound 07/05/25 02:40 IMPRESSION: 1. Prior cholecystectomy. 2. Normal common bile duct. 3. Large abdominal aortic aneurysm, maximal diameter 5.9 cm. 4. RIGHT renal cyst. No renal obstruction. Chest CTA 07/06/25 08:34 IMPRESSION: 1. Multifocal pneumonia. 2. Small bilateral pleural effusions. 3. 1.1 cm nodule in the posterior right lower lobe, unchanged dating back to 02/02/2022, most likely benign given stability. 4. Partially imaged infrarenal abdominal aortic aneurysm. Head CT 07/08/25 12:53 IMPRESSION: 1. No acute intracranial hemorrhage. 2. Chronic findings as above. Chest X-Ray 07/08/25 23:33 IMPRESSION: 1. Appropriately positioned endotracheal tube. 2. Right IJ approach central venous catheter with the tip terminating in the upper SVC-- satisfactory position. 3. Enteric tube tip terminates over the stomach with the side hole near the GE junction. Consider advancement by a few centimeters for optimal positioning. Laboratory Results WBC 21.34 10^3/uL (3.29-11.43) H 07/09/25 04:18 RBC 4.16 10^6/uL (3.85-5.65) 07/09/25 04:18 Hgb 10.60 g/dL (11.27-16.99) L 07/09/25 04:18 Hct 33.6 % (37-53) L 07/09/25 04:18 MCV 80.8 fl (82-101) L 07/09/25 04:18 MCH 25.5 pg (27-33) L 07/09/25 04:18 MCHC 31.5 g/dL (30-55) D 07/09/25 04:18 RDW 16.3 % (12.1-15.1) H 07/09/25 04:18 Plt Count 343 10^3/cmm (157-399) 07/09/25 04:18 MPV 11.0 fL (7.4-10.4) H 07/09/25 04:18 Neut % (Auto) 74.7 % 07/09/25 04:18 Lymph % (Auto) 19.7 % 07/09/25 04:18 [place] % (Auto) 4.5 % 07/09/25 04:18 Eos % (Auto) 0.0 % 07/09/25 04:18 Baso % (Auto) 0.1 % 07/09/25 04:18 Neut # (Auto) 15.93 10^3/uL (1.8-7.7) H 07/09/25 04:18 Lymph # (Auto) 4.2 10^3/uL (0.8-4.8) 07/09/25 04:18 [place] # (Auto) 1.0 10^3/uL (0.2-0.9) H 07/09/25 04:18 Eos # (Auto) 0.0 10^3/uL (0.0-0.8) 07/09/25 04:18 Baso # (Auto) 0.0 10^3/uL (0.0-0.1) 07/09/25 04:18 Nucleated RBC % (auto) 0.1 % 07/09/25 04:18 Nucleated RBCs # 0.0 /100WBC 07/09/25 04:18 PT 15.90 SECONDS (12.1-14.9) H 07/04/25 10:02 INR 1.19 (0.8-1.2) 07/04/25 10:02 APTT 39.2 SECONDS (23.9-36.7) H 07/04/25 10:02 Specimen Type Arterial 07/09/25 11:53 Sample Site Brachial, left 07/09/25 11:53 ABG pH 7.26 (7.35-7.45) L 07/09/25 11:53 ABG pCO2 54.2 mmHg (35-45) H 07/09/25 11:53 ABG pO2 250.0 mmHg (80.0-100.0) H 07/09/25 11:53 ABG PO2/FiO2 Ratio 250 07/09/25 11:53 ABG HCO3 24.4 mmol/L (22-26) 07/09/25 11:53 ABG O2 Saturation > 99.1 07/09/25 11:53 ABG Base Excess -3.1 mmol/L (-2.0-2.0) L 07/09/25 11:53 Mario Test Pos 07/09/25 11:53 A-a O2 Gradient 51.1 mmHg (5-10) H 07/09/25 11:53 Hematocrit 34.9 % (42-52) L 07/09/25 11:53 Hgb O2 Saturation 97.2 % (95-100) 07/09/25 11:53 Carboxyhemoglobin 0.8 %THgb (0.4-20.1) 07/09/25 11:53 Methemoglobin 1.3 % (0.4-1.5) 07/09/25 11:53 Total Hemoglobin 11.4 g/dL (14-18) L 07/09/25 11:53 Sodium 162.0 mmol/L (131-143) H 07/09/25 11:53 Potassium 4.1 mmol/L (3.5-5.0) 07/09/25 11:53 Glucose 234.0 mg/dL (70-115) H 07/09/25 11:53 Ionized Calcium 1.7 mmol/L (1.1-1.4) H 07/09/25 11:53 O2 Delivery Device Vent 07/09/25 11:53 O2 Liters/Min 6.0 % 07/08/25 22:26 FiO2 100.0 % 07/09/25 11:53 Tidal Volume 0.45 07/09/25 11:53 PEEP 8.0 cmH20 07/09/25 11:53 Audit Clerks Supervisor ID Cak 07/09/25 11:53 Sodium 162 mmol/L (136-145) H* 07/09/25 11:41 Potassium 3.6 mmol/L (3.5-5.1) 07/09/25 04:18 Potassium 3.7 mmol/L (3.5-5.1) 07/09/25 04:18 Chloride 117 mmol/L (98-107) H 07/09/25 04:18 Chloride 118 mmol/L (98-107) H 07/09/25 04:18 Carbon Dioxide 26 mmol/L (22-29) 07/09/25 04:18 Carbon Dioxide 27 mmol/L (22-29) 07/09/25 04:18 Anion Gap 17.7 (5-19) 07/09/25 04:18 Anion Gap 19.6 (5-19) H 07/09/25 04:18 BUN 46 mg/dL (8-23) H 07/09/25 04:18 BUN 51 mg/dL (8-23) H 07/09/25 04:18 Creatinine 1.3 mg/dL (0.7-1.2) H 07/09/25 04:18 Creatinine 1.4 mg/dL (0.7-1.2) H 07/09/25 04:18 GFR Calculation Not Reportable 07/09/25 04:18 GFR Calculation Not Reportable 07/09/25 04:18 Glucose 152 mg/dL (65-115) H 07/09/25 04:18 Glucose 153 mg/dL (65-115) H 07/09/25 04:18 POC Glucose 178 mg/dL (70-110) H 07/09/25 07:24 Calculated Osmolality 343 mOsm/kg (285-295) H 07/09/25 04:18 Calculated Osmolality 345 mOsm/kg (285-295) H 07/09/25 04:18 Lactic Acid 1.6 mmol/L (0.5-2.2) 07/04/25 10:02 Lactate 2.0 mmol/L (0.5-2.2) 07/09/25 04:18 Calcium 9.6 mg/dL (8.5-10.5) 07/09/25 04:18 Calcium 9.8 mg/dL (8.5-10.5) 07/09/25 04:18 Phosphorus 4.4 mg/dL (2.5-4.5) 07/09/25 04:18 Magnesium 2.0 mg/dL (1.7-2.3) 07/09/25 04:18 Total Bilirubin 1.5 mg/dL (0.15-1.2) H 07/09/25 04:18 Direct Bilirubin 1.23 mg/dL (0.00-0.30) H 07/08/25 11:27 AST 28 U/L (0-40) 07/09/25 04:18 ALT 18 U/L (0-41) 07/09/25 04:18 Alkaline Phosphatase 107 U/L (40-130) 07/09/25 04:18 Creatine Kinase 150 U/L (39-308) 07/09/25 04:18 Troponin T Baseline 555 ng/L (0-15) H* 07/09/25 11:41 Troponin T 120 Minute 37.76 ng/L (0-15) H 07/04/25 16:41 Delta Troponin T 11.76 ABS# (0-10) H* 07/04/25 16:41 Troponin T Hi Sens 6Hr 60.49 ng/L (0-15) H 07/04/25 20:03 Troponin T Hi Sens 6Hr Delta 34.49 ng/L (0-12) H* 07/04/25 20:03 C-Reactive Protein 162.6 mg/L (0.0-4.9) H 07/09/25 04:18 NT-Pro-B Natriuret Pep 77954 pg/mL (0-450) H 07/09/25 04:18 Total Protein 6.4 g/dL (6.6-8.7) L 07/09/25 04:18 Albumin 2.9 g/dL (3.5-5.2) L 07/09/25 04:18 Globulin 3.5 g/dL (1.3-4.6) 07/09/25 04:18 Triglycerides 116 mg/dL (0-150) 07/04/25 10:02 Cholesterol 99 mg/dL (0-200) 07/04/25 10:02 LDL Cholesterol, Calc 51 mg/dL (50-129) 07/04/25 10:02 HDL Cholesterol 25 mg/dL (60-100) L 07/04/25 10:02 LDL/HDL Ratio 2.04 RATIO (0.00-3.22) 07/04/25 10:02 Cholesterol/HDL Ratio 3.96 mg/dL (1.0-5.00) 07/04/25 10:02 Procalcitonin 0.76 ng/mL (0-0.5) H 07/09/25 04:18 TSH 0.62 uIU/mL (0.27-4.20) 07/04/25 10:02 Urine Color Dark yellow (Yellow) A 07/04/25 10:00 Urine Appearance Cloudy (CLEAR) A 07/04/25 10:00 Urine pH 5.5 (5-7) 07/04/25 10:00 Ur Specific [place] 1.022 (1.005-1.030) 07/04/25 10:00 Urine Protein 1+ (Negative) A 07/04/25 10:00 Urine Glucose (UA) Negative (Normal) 07/04/25 10:00 Urine Ketones 1+ (Negative) H 07/04/25 10:00 Urine Blood 1+ (Negative) A 07/04/25 10:00 Urine Nitrate Positive (Negative) A 07/04/25 10:00 Urine Bilirubin 1+ (Negative) H 07/04/25 10:00 Urine Urobilinogen 1.0 mg/dL (Negative) 07/04/25 10:00 Ur Leukocyte Esterase 3+ (Negative) A 07/04/25 10:00 Urine RBC 5-10 /hpf (0-2) H 07/04/25 10:00 Urine WBC 51-100 /hpf (0-5) H 07/04/25 10:00 Ur Squamous Epith Cells 5-10 /hpf (0-5) H 07/04/25 10:00 Amorphous Sediment Not Reportable 07/04/25 10:00 Urine Bacteria 3+ /hpf (NONE) H 07/04/25 10:00 Urine Mucus 1+ /hpf 07/04/25 10:00 Vancomycin Trough 28.0 ug/mL (10-15) H* 07/09/25 11:41 Influenza A (PCR) Negative (Negative) 07/04/25 10:33 Influenza Type B (PCR) Negative (Negative) 07/04/25 10:33 RSV (PCR) Negative (Negative) 07/04/25 10:33 SARS-CoV-2 (PCR) Negative (Negative) 07/04/25 10:33 Vitals Last Vital Signs Temp 98.9 F 07/08/25 20:00 Pulse 99 07/09/25 11:55 Resp 28 H 07/09/25 11:55 BP 91/59 07/09/25 11:45 Pulse Ox 84 L 07/09/25 11:00 O2 Del Method Mechanical Ventilation 07/09/25 11:55 O2 Flow Rate 3 07/08/25 21:15 FiO2 100 07/09/25 11:55 Discharge Plan Discharge Patient Disposition: Home Condition: Stable Prescriptions: No Action clopidogrel 75 mg tablet 75 mg PO DAILY nitroglycerin [Nitrostat] 0.4 mg tablet, sublingual 0.4 mg SUBLINGUAL Q5M PRN (Reason: Chest Pain) fluoxetine 40 mg capsule 40 mg PO DAILY Qty: 30 1RF (DME) bed side urinal See Rx Instructions .Route .MEDSUPPLY Qty: 1 0RF Rx Instructions: As directed mupirocin 2 % ointment 1 applic topical BID Qty: 22 1RF (DME) wheel chair, standard with leg rests See Rx Instructions .Route .MEDSUPPLY Qty: 1 0RF Rx Instructions: As directed hydroxyzine HCl 50 mg tablet 50 mg PO TID Qty: 90 0RF Rx Instructions: hold if sedated pregabalin [Lyrica] 75 mg capsule 75 mg PO QDAY Qty: 30 5RF hydrocodone-acetaminophen 5-325 mg tablet 1 tab PO TID 30 Days Qty: 90 0RF lisinopril 5 mg tablet 5 mg PO DAILY PRN (Reason: Blood Pressure) Rx Instructions: TAKE IF BLOOD PRESSURE IS > 120/70 tramadol 50 mg Tablet 50 mg PO Q8H PRN (Reason: Pain) trazodone 100 mg tablet 100 mg PO BEDTIME insulin glargine [Lantus Solostar U-100 Insulin] 100 unit/mL (3 mL) insulin pen 5 unit SUBCUT BEDTIME chlorthalidone 25 mg Tablet 25 mg PO DAILY Qty: 30 0RF meclizine 25 mg tablet 25 mg PO BID PRN (Reason: dizziness) Qty: 30 0RF acetaminophen 500 mg Tablet 500 - 1,000 mg PO Q6H PRN (Reason: Pain/fever) isosorbide mononitrate 60 mg tablet extended release 24 hr 60 mg PO BID tamsulosin 0.4 mg capsule 0.4 mg PO BEDTIME pantoprazole 40 mg tablet,delayed release (DR/EC) 40 mg PO QAM diltiazem HCl 120 mg capsule,extended release 24hr 120 mg PO DAILY magnesium hydroxide [Milk of Magnesia] 400 mg/5 mL Suspension 30 ml PO DAILY PRN (Reason: Constipation) Spiriva Respimat 1.25 mcg/actuation mist 2 inh inhalation DAILY Qty: 4 5RF albuterol sulfate 90 mcg/actuation HFA aerosol inhaler 2 inh inhalation Q8H PRN (Reason: shortness of breath or wheezing) Qty: 6.7 3RF budesonide-formoterol [Symbicort] 160-4.5 mcg/actuation HFA aerosol inhaler 2 puff INHALATION BID 360 Days Qty: 10.2 3RF potassium chloride 20 mEq tablet extended release 20 meq PO DAILY Qty: 180 1RF Rx Instructions: along with 20meq to= 30meq total Januvia 50 mg tablet 50 mg PO DAILY Qty: 90 3RF insulin lispro [Humalog KwikPen Insulin] 100 unit/mL insulin pen See Rx Instructions .ROUTE .COMPLEX Qty: 15 4RF Rx Instructions: Blood sugar 150-199 please take 3 units Blood sugar 200 -249 please take 5 units Blood sugar 250-299 please take 7 units Blood sugar 300-349 please take 10 units 350-399 please take 12 units, above 400=16 units and call MD Above 400 take 16 units and notify your doctor albuterol sulfate 2.5 mg /3 mL (0.083 %) solution for nebulization 2.5 mg inhalation Q4H PRN (Reason: Shortness Of Breath Or Wheezing) metformin 500 mg tablet 500 mg PO BID promethazine-DM 6.25-15 mg/5 mL Syrup 5 ml PO Q6H PRN (Reason: Cough) potassium chloride 10 mEq tablet extended release 20 meq PO DAILY Rx Instructions: along with a 20 meq to=30meq total bismuth subsalicylate [Kaopectate (bismuth subsalicy)] 262 mg/15 mL Suspension 524 mg PO Q1H PRN (Reason: Diarrhea) Rx Instructions: do not exceed 8 doses in a 24 hour period aspirin [Carmen Chewable Aspirin] 81 mg Tablet,Chewable 81 mg PO DAILY alum-mag hydroxide-simeth [Almacone-2] 400-400-40 mg/5 mL Suspension 30 ml PO QID PRN (Reason: Acid Reflux) cholecalciferol (vitamin D3) [Vitamin D3] 125 mcg (5,000 unit) Tablet 125 mcg PO DAILY gabapentin 300 mg capsule 300 mg PO TID zinc gluconate 50 mg Tablet 50 mg PO QAM ondansetron 4 mg tablet,disintegrating 4 mg PO Q8H PRN (Reason: Nausea And Vomiting) Referrals: Joe Bustillos DO [Primary Care Provider, Family Practice] Patient Instructions: Altered Mental Status (ED), Opioid Safety, Patient Portal & Tony[facility] Instructions Coding Level of Care Code Acute Code for g Fwd Diagnoses Sepsis A41.9 Urinary tract infection without hematuria, site unspecified N39.0 Urinary tract infection type: site unspecified Hematuria presence: without hematuria Pneumonia J18.9
--- NOTE | 2025-07-09 14:36 | P.DES_ITS ---
Discharge Providers DDS Date of Admission: 07/04/25 11:36 Date Summary Completed: 07/11/25 Attending Provider at Admission: Johnson Mosher MD Attending Provider at Discharge: Johnson Mosher MD Primary Care Provider: DO GOLDY Masterson Diagnoses Hospital Diagnoses 1. Sepsis: 2. Urinary tract infection without hematuria, site unspecified: Qualifiers: Hematuria presence: without hematuria Urinary tract infection type: site unspecified 3. Pneumonia: Reason for Visit Reason for Visit Weakness Summary Summary Summary: Jose Perkins is a 80 year old male who presents to the ED via EMS from his alf with altered mental status. He also seems to respond to some intermittent, sternal chest pain but is unable to describe it. As reported via alf staff and ER staff, he underwent a decline in mental status from a baseline of normally alert and oriented to people, place, and time. Patient is oriented to self but not to time, year, or place. He follows commands well. He is still unable to describe any of his history. His vitals remain stable. Patient was admitted to [facility] for sepsis secondary to ecoli urinary tract infection, with bladder outlet obstruction requiring Jack catheter placement, with acute hypoxic respiratory failure, with multifocal pneumonia, streptococcal pneumonia bacteremia, Staphylococcus epidermidis bacteremia, Staphylococcus hominis bacteremia, with altered mental status, with NSTEMI, with FLAVIO, with a transesophageal echocardiogram not showing ultrasonographic evidence of bacterial endocarditis, received broad-spectrum antibiotic therapy, ICU admission, close clinical monitoring Patient's condition deteriorated -Worsening acute hypoxic respiratory failure, multifocal pneumonia, acute respiratory distress, with septic shock requiring intubation, mechanical ventilation, -Patient had a cardiac arrest episode, V-fib arrest 07/09/2025, with successful ROSC -Postcardiac arrest worsening septic shock requiring up to 3 pressors, with acute hypoxic respiratory failure - Overnight events noted 07/09/2025 - Patient was intubated for acute hypoxic respiratory failure - Currently seen, 40% FiO2, tidal volume 450, PEEP of 8 - Afebrile overnight, is on 2 Levophed - He is on, fentanyl for sedation - No family members at bedside - Currently receiving D5 water for hypernatremia - Output 200 - Patient has acute hypoxic respiratory failure secondary to bilateral pneumonia, developing acute respiratory distress syndrome, with underlying paraseptal and centrilobular emphysema, currently in septic shock requiring 2 Levophed, is on vancomycin, meropenem - Blood cultures growing staphylococcal hominis, Staphylococcus epidermidis, strep pneumonia, with E. coli UTI repeat blood cultures so far negative - Patient is critically ill, prognosis guarded - Consulted pulmonary - At roughly 11:29 AM, I was urgently called by nursing staff that patient had developed bradycardia, heart rates in 30s, will order given for 0.5 atropine is to start patient on dopamine -As I was arriving to the ICU to examine patient, CODE BLUE was called overhead - Upon arrival nursing staff tell me he was in V-fib, CPR was initiated - Patient on 3 subsequent pulse checks had V-fib, was shocked 3 times, received 2 doses of epi, 2 doses of amiodarone, 2 doses of bicarbonate, received calcium gluconate - CPR was roughly initiated for about 10 minutes before ROSC, waiting on the code sheet to confirm - Nonetheless with ROSC, he was in tachycardia, Levophed currently at 20, receiving fluid bolus, G shows ST depressions in anterior leads - CBC, CMP, ABG, troponin ordered - Initial ABG showed a potassium of 6.6, he is already received calcium chlo ride, orders placed for calcium gluconate through nursing staff with orders for D10, insulin, - However repeat ABG showed potassium of 4.1 - BMP pending, had orders for insulin, D50 placed, -I had a detailed meeting with patient's sisters in the waiting room - Sisters tell me that Jose has had a generalized decline over the last month, is more wheelchair-bound, has been urinating on himself recently, family has been worried about a UTI - Discussed with family he has bladder outlet obstruction secondary to enlarged prostate with a UTI - But currently he septic shock secondary to bilateral pneumonia, with streptococcal bacteremia, developing acute respiratory distress syndrome given his hypoxia - He was on broad-spectrum antibiotic therapy since admission - He also has staphylococcal epidermidis and staphylococcal hominis bacteremia source is unclear this could be contamination nonetheless for adequate source control I performed a transesophageal cardiogram that did not show any valvular vegetations - His echocardiogram showed EF of 59%, no valvular vegetations, thus I do not believe he has bacterial endocarditis - Nonetheless he is on broad-spectrum antibiotic therapy - Discussed his NSTEMI, his EF being 59%, and medical management for his NSTEMI - Discussed that for the last 48 hours Jose has had persistent encephalopathy, repeat head CT within normal limits -Discussed my concern for his present encephalopathy likely multifactorial, but significant border related to sepsis, pneumonia, and respiratory failure - Overnight patient's respiratory status worsened, developed acute hypoxic respiratory failure was intubated - Discussed patient's cardiac arrest, V-fib, likely a consequence of acute hypoxic respiratory failure, multifocal pneumonia, septic shock, sepsis, strepto coccal pneumonia bacteremia, staphylococcal epidermidis and hominis bacteremia, acute respiratory distress syndrome, NSTEMI, acute kidney injury, E. coli urinary tract infection, bladder outlet obstruction, with underlying emphysema of the lungs - Repeat potassium on ABG is 4.1, I think that initial potassium was 6.6 was likely related to his cardiac arrest and cell breakdown, awaiting BMP - Patient is hypernatremic serum sodium of 162, is on D5 water, nephrology consulted - Discussed goals of care with family - Family tells me that given his generalized decline, they want him to be DNR, they do not want to have aggressive interventions, they do not want dialysis, if the likelihood of meaningful recovery is unlikely they want life-sustaining measures to be stopped - They do want to await other found members to come, so they can pray over him, and play mandolin over him, as that is what he did in [place] - Just with cardiac arrest episode we worry about multiorgan failure, anoxic brain injury, multiorgan failure, acute renal failure, shock liver, will repeat cardiac echo, will consult cardiology, consult nephrology, consult cardiology based on clinical progress - Patient was reexamined with family numbers at bedside, he is now on 3 pressors, vasopressin maximized, epinephrine drip maximized, Levophed maximized, Levophed at 30, fluid bolus, 80% FiO2 maps 60 -I allowed patient's family to spend time with him -Nursing staff tell me that despite resuscitative measures, his mean arterial pressure remains in the 55-60 range is on 3 pressors, he is on 80% of FiO2, respiratory rate 22-30, he has no pupillary reflex, no gag reflex, does not withdraw from pain, - Family numbers at bedside, family members want to withdraw life-sustaining measures, they want us to ease his pain is not suffering allow him to pass for comfortably - Discussed risk and benefits of all options continue medical inventions giving him time versus comfort care and terminal extubation - After discussing with family the risks and benefits of all options, patient's family voiced understanding, all questions answered, shared decision making, family wants to proceed with comfort care - We are awaiting to other family numbers to come, see Jose before full comfort care measures are started, family wants to have 2 other family members see him, and play mandolin over him before fully withdrawing care - Patient's family members arrived, withdrawal of care, terminal extubation -Time of 07/09/2025 at 1405 Additional Data Confirmation of as documented by pronouncing clinician: no pulse, no respirations, no heart sounds and pupils fixed and dilated Family: at bedside and contacted Additional persons at bedside: nursing staff and educational advisor Attending/PCP notified?: I am attending Was code activated?: Yes Autopsy requested?: No Advance directives?: No Hospice patient?: No Discharge Plan Discharge Patient Disposition: At Medical Facility Condition: Stable Prescriptions: No Action clopidogrel 75 mg tablet 75 mg PO DAILY nitroglycerin [Nitrostat] 0.4 mg tablet, sublingual 0.4 mg SUBLINGUAL Q5M PRN (Reason: Chest Pain) fluoxetine 40 mg capsule 40 mg PO DAILY Qty: 30 1RF (DME) bed side urinal See Rx Instructions .Route .MEDSUPPLY Qty: 1 0RF Rx Instructions: As directed mupirocin 2 % ointment 1 applic topical BID Qty: 22 1RF (DME) wheel chair, standard with leg rests See Rx Instructions .Route .MEDSUPPLY Qty: 1 0RF Rx Instructions: As directed hydroxyzine HCl 50 mg tablet 50 mg PO TID Qty: 90 0RF Rx Instructions: hold if sedated pregabalin [Lyrica] 75 mg capsule 75 mg PO QDAY Qty: 30 5RF hydrocodone-acetaminophen 5-325 mg tablet 1 tab PO TID 30 Days Qty: 90 0RF lisinopril 5 mg tablet 5 mg PO DAILY PRN (Reason: Blood Pressure) Rx Instructions: TAKE IF BLOOD PRESSURE IS > 120/70 tramadol 50 mg Tablet 50 mg PO Q8H PRN (Reason: Pain) trazodone 100 mg tablet 100 mg PO BEDTIME insulin glargine [Lantus Solostar U-100 Insulin] 100 unit/mL (3 mL) insulin pen 5 unit SUBCUT BEDTIME chlorthalidone 25 mg Tablet 25 mg PO DAILY Qty: 30 0RF meclizine 25 mg tablet 25 mg PO BID PRN (Reason: dizziness) Qty: 30 0RF acetaminophen 500 mg Tablet 500 - 1,000 mg PO Q6H PRN (Reason: Pain/fever) isosorbide mononitrate 60 mg tablet extended release 24 hr 60 mg PO BID tamsulosin 0.4 mg capsule 0.4 mg PO BEDTIME pantoprazole 40 mg tablet,delayed release (DR/EC) 40 mg PO QAM diltiazem HCl 120 mg capsule,extended release 24hr 120 mg PO DAILY magnesium hydroxide [Milk of Magnesia] 400 mg/5 mL Suspension 30 ml PO DAILY PRN (Reason: Constipation) Spiriva Respimat 1.25 mcg/actuation mist 2 inh inhalation DAILY Qty: 4 5RF albuterol sulfate 90 mcg/actuation HFA aerosol inhaler 2 inh inhalation Q8H PRN (Reason: shortness of breath or wheezing) Qty: 6.7 3RF budesonide-formoterol [Symbicort] 160-4.5 mcg/actuation HFA aerosol inhaler 2 puff INHALATION BID 360 Days Qty: 10.2 3RF potassium chloride 20 mEq tablet extended release 20 meq PO DAILY Qty: 180 1RF Rx Instructions: along with 20meq to= 30meq total Januvia 50 mg tablet 50 mg PO DAILY Qty: 90 3RF insulin lispro [Humalog KwikPen Insulin] 100 unit/mL insulin pen See Rx Instructions .ROUTE .COMPLEX Qty: 15 4RF Rx Instructions: Blood sugar 150-199 please take 3 units Blood sugar 200 -249 please take 5 units Blood sugar 250-299 please take 7 units Blood sugar 300-349 please take 10 units 350-399 please take 12 units, above 400=16 units and call MD Above 400 take 16 units and notify your doctor albuterol sulfate 2.5 mg /3 mL (0.083 %) solution for nebulization 2.5 mg inhalation Q4H PRN (Reason: Shortness Of Breath Or Wheezing) metformin 500 mg tablet 500 mg PO BID promethazine-DM 6.25-15 mg/5 mL Syrup 5 ml PO Q6H PRN (Reason: Cough) potassium chloride 10 mEq tablet extended release 20 meq PO DAILY Rx Instructions: along with a 20 meq to=30meq total bismuth subsalicylate [Kaopectate (bismuth subsalicy)] 262 mg/15 mL Suspension 524 mg PO Q1H PRN (Reason: Diarrhea) Rx Instructions: do not exceed 8 doses in a 24 hour period aspirin [Carmen Chewable Aspirin] 81 mg Tablet,Chewable 81 mg PO DAILY alum-mag hydroxide-simeth [Almacone-2] 400-400-40 mg/5 mL Suspension 30 ml PO QID PRN (Reason: Acid Reflux) cholecalciferol (vitamin D3) [Vitamin D3] 125 mcg (5,000 unit) Tablet 125 mcg PO DAILY gabapentin 300 mg capsule 300 mg PO TID zinc gluconate 50 mg Tablet 50 mg PO QAM ondansetron 4 mg tablet,disintegrating 4 mg PO Q8H PRN (Reason: Nausea And Vomiting) Referrals: Joe Bustillos DO [Primary Care Provider, [facility]] Patient Instructions: Altered Mental Status (ED), Opioid Safety, Patient Portal & Tonya Instructions Probable Cause of Probable cause of : Cardiac arrest DS Attestations Time Spent in /Discharge Care*: greater than 30 min Quality - AMI: AMI present?: No Quality - Stroke: CVA present?: No Quality - VTE: VTE present?: No Coding Level of Care Code 40730 Total time (in minutes) for Discharge: 45 Diagnoses Sepsis A41.9 Urinary tract infection without hematuria, site unspecified N39.0 Hematuria presence: without hematuria Urinary tract infection type: site unspecified Pneumonia J18.9
--- NOTE | 2025-07-09 14:40 | PC.NURSE ---
MTS notified of .
--- NOTE | 2025-07-09 16:00 | PC.NURSE ---
Awaiting call meet from family for donation to [facility]/ Body transferred to [facility] [place].
--- NOTE | 2025-07-09 16:10 | PC.NURSE ---
CVL, 2 peripheral IV and dee cath removed. Post mortem care provided.
--- NOTE | 2025-07-09 16:33 | PC.NURSE ---
Discharge assessment: Will only allow cardiac arrest as cause of . Per Dr Mosher cause of is pneumonia and respiratory failure.
--- NOTE | 2025-07-10 14:14 | PC.NURSE ---
Called Nishant Hebert, his sister, verified that Mr Perkins's body is to be transferred to [facility].
== END 2025-07-09 14:05 | disposition expired | DRG 871 ==
LOC: ER 10:12 → ICU 11:37 → ER IP 12:33 → ICU 15:26
PROVIDERS: Anesthesiology; Internal Medicine; Admitting Provider Family Medicine; Emergency Provider Physician Assistant; PCP Family Medicine; Visit Provider Family Medicine
DX: A41.51 Sepsis due to Escherichia coli [E. coli] (principal); I21.4 Non-ST elevation (NSTEMI) myocardial infarction; J15.4 Pneumonia due to other streptococci; J80 Acute respiratory distress syndrome; R65.21 Severe sepsis with septic shock; N17.9 Acute kidney failure, unspecified; N30.00 Acute cystitis without hematuria; G93.49 Other encephalopathy; E87.0 Hyperosmolality and hypernatremia; Z51.5 Encounter for palliative care; N32.0 Bladder-neck obstruction; F41.9 Anxiety disorder, unspecified; I10 Essential (primary) hypertension; J44.9 Chronic obstructive pulmonary disease, unspecified; E78.5 Hyperlipidemia, unspecified; F32.A Depression, unspecified; N40.1 Benign prostatic hyperplasia with lower urinary tract symptoms; K21.9 Gastro-esophageal reflux disease without esophagitis; E11.42 Type 2 diabetes mellitus with diabetic polyneuropathy; F17.210 Nicotine dependence, cigarettes, uncomplicated; I71.40 Abdominal aortic aneurysm, without rupture, unspecified; R65.20 Severe sepsis without septic shock; I34.0 Nonrheumatic mitral (valve) insufficiency; J43.2 Centrilobular emphysema; I46.2 Cardiac arrest due to underlying cardiac condition; E87.5 Hyperkalemia; I49.01 Ventricular fibrillation; E87.6 Hypokalemia; I25.10 Atherosclerotic heart disease of native coronary artery without angina pectoris; B95.8 Unspecified staphylococcus as the cause of diseases classified elsewhere; Z86.73 Personal history of transient ischemic attack (TIA), and cerebral infarction without residual deficits; Z99.81 Dependence on supplemental oxygen; Z79.02 Long term (current) use of antithrombotics/antiplatelets; Z79.899 Other long term (current) drug therapy; Z79.82 Long term (current) use of aspirin; Z88.2 Allergy status to sulfonamides; Z88.8 Allergy status to other drugs, medicaments and biological substances; Z88.0 Allergy status to penicillin; Z91.013 Allergy to seafood; Z11.52 Encounter for screening for COVID-19; Z98.61 Coronary angioplasty status
CPT/HCPCS: 36415; 36416; 36592; 36600; 51702; 70450; 71045; 71275; 74176; 76705; 80048; 80051; 80053; 80061; 80076; 80202; 81001; 82330; 82550; 82805; 82962; 83605; 83735; 83880; 84100; 84132; 84145; 84295; 84443; 84484; 85025; 85610; 85730; 86140; 87040; 87070; 87077; 87086; 87106; 87150; 87186; 87205; 87637; 92507; 92523; 92526; 92610; 93005; 93306; 93312; 93320; 93325; 94002; 94003; 94640; 94664; 94799; 96365; 96372; 96375; 97162; 97167; 97530; 97535; 99291; 99292; J0169; J0330; J1630; J1650; J1815; J1938; J2185; J2250; J2270; J2470; J2598; J2704; J2919; J3010; J3373; J3473; J3475; J3480; J3490; J7030; J7040; J7050; J7070; J7611; J7626; J9999